=== PATIENT | male | born 1945 | race Caucasian/White ===

== ENCOUNTER → 2018-04-21 07:29 | Outpatient (CLI) | payer OTHER, SELFPAY ==
[2018-04-21 08:11] LABS: Alanine Aminotransferase 29 IU/L (21-72); Albumin 4.1 g/dL (3.5-5.0); Albumin Globulin Ratio 1.3 (1.0-2.8); Alkaline Phosphatase 131 U/L (38-126); Aspartate Aminotransferase 23 IU/L (17-59); BUN Creatinine Ratio 32.5 (6-22); Bilirubin Total 0.5 mg/dL (0.2-1.3); Blood Urea Nitrogen 26 mg/dL (9-20); Calcium 9.7 mg/dL (8.4-10.2); Carbon Dioxide 29 mmol/L (22-32); Chloride 102 mmol/L (98-107); Cholesterol 116 mg/dL (140-199); Estimated Glomerular Filt Rate > 60.0 mL/min (>60); Globulin 3.1 g/dL (1.7-4.1); Glucose 174 mg/dL (80-110); HDL Cholesterol 41 mg/dL (40-60); HEMOLYSIS < 15 (0-50); LDL Cholesterol Calculated 37 mg/dL (<100); Potassium 4.6 mmol/L (3.4-5.1); Sodium 142 mmol/L (137-145); Total Protein 7.2 g/dL (6.3-8.2); Triglycerides 189 mg/dL (35-150)
== END ==
PROVIDERS: Family Provider Family Medicine; PCP Family Medicine; Visit Provider Internal Medicine Cardiovascular Disease
DX: I10 Essential (primary) hypertension (principal); E78.2 Mixed hyperlipidemia
CPT/HCPCS: 36415; 80053; 80061

== ENCOUNTER 2018-06-15 16:22 | Emergency (ER) | payer OTHER, SELFPAY ==
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
[2018-06-15 16:43] LABS: Add Manual Diff / Slide Review NO; Basophils Percent Auto 0.4 % (0-2); Eosinophils Percent Auto 2.3 % (2-4); Hematocrit 38.3 % (41-53); Hemoglobin 13.4 g/dL (13.5-17.5); Lymphocytes Percent Auto 43.5 % (25-40); Mean Corpuscular HGB Conc 34.9 % (30-36); Mean Corpuscular Hemoglobin 29.1 PG (26-34); Mean Corpuscular Volume 83.5 fL (80-100); Monocytes Percent Auto 6.4 % (3-14); Neutrophils Absolute Auto 4500 /uL (3000-5900); Neutrophils Percent Auto 47.4 % (50-75); Platelet Count 198 X10^3/uL (150-400); Red Blood Cell Count 4.58 X10^6/uL (4.5-5.9); Red Cell Distribution Width 12.5 % (11.6-14.8); White Blood Cell Count 9.5 X10^3/uL (4.5-11.0)
[2018-06-15 16:44] VITALS: PULSE 65; RESP 14; O2SAT 90
[2018-06-15 16:52] LABS: Alanine Aminotransferase 27 IU/L (21-72); Albumin 3.9 g/dL (3.5-5.0); Albumin Globulin Ratio 1.4 (1.0-2.8); Alkaline Phosphatase 97 U/L (38-126); Aspartate Aminotransferase 27 IU/L (17-59); BUN Creatinine Ratio 27.8 (6-22); Bilirubin Total 0.4 mg/dL (0.2-1.3); Blood Urea Nitrogen 25 mg/dL (9-20); Calcium 9.3 mg/dL (8.4-10.2); Carbon Dioxide 28 mmol/L (22-32); Chloride 104 mmol/L (98-107); Estimated Glomerular Filt Rate > 60.0 mL/min (>60); Globulin 2.7 g/dL (1.7-4.1); Glucose 126 mg/dL (80-110); HEMOLYSIS < 15 (0-50); Potassium 4.3 mmol/L (3.4-5.1); Sodium 142 mmol/L (137-145); Total Protein 6.6 g/dL (6.3-8.2)
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
[2018-06-15 17:19] LABS: INR 1.1 (0.9-1.3); Prothrombin Time 12.2 SECONDS (10.1-12.7)
[2018-06-15 17:21] LABS: PTT Partial Thromboplastin Tim 29 SECONDS (26.4-36.2)
[2018-06-15 17:36] LABS: Troponin I < 0.012 ng/mL (0.01-0.034)
[2018-06-15 17:40] VITALS: BP 168/69; PULSE 57; RESP 15; O2SAT 100
[2018-06-15 19:29] VITALS: BP 135/81; PULSE 62; RESP 14; TEMP 36.4; O2SAT 100
== END 2018-06-15 19:30 | disposition short-term general hospital (02) ==
PROVIDERS: Emergency Provider Emergency Medicine; Family Provider Family Medicine; PCP Family Medicine
DX: S22.42XA Multiple fractures of ribs, left side, initial encounter for closed fracture (principal); S02.2XXA Fracture of nasal bones, initial encounter for closed fracture; S32.591A Other specified fracture of right pubis, initial encounter for closed fracture; S32.592A Other specified fracture of left pubis, initial encounter for closed fracture; V33 Occupant of three-wheeled motor vehicle injured in collision with car, pick-up truck or van
CPT/HCPCS: 70450; 70486; 71045; 71260; 72125; 72170; 74177; 80053; 82962; 84484; 85025; 85610; 85730; 86850; 86900; 86901; 93005; 93010; 96374; 96375; 96376; 99281; 99285; 99291; 99292; G0390; Q9967

== ENCOUNTER 2018-08-21 17:53 | Emergency (ER) | payer OTHER, SELFPAY ==
[2018-08-21 18:11] VITALS: BP 120/58; PULSE 100; RESP 20; TEMP 36.3; O2SAT 100
--- NOTE | 2018-08-21 18:37 | ED_ITS ---
HPI - Male Genitourinary General Chief complaint: Urogenital-Male Stated complaint: CATHETER PROBLEMS Time Seen by Provider: 08/21/18 18:36 Source: patient Mode of arrival: ambulatory Limitations: no limitations History of Present Illness HPI Narrative: 72-year-old male with a indwelling urinary catheter secondary to urinary retention here for concerns of a Iverson catheter problem. Patient states that he just had his catheter changed hand the home health nurse cut the tube that leads to the bag too short. He states that he would like to the have a longer 2. He also states that he is due to have his urine checked to see if he has a urinary tract infection. He denies any fevers. Denies any additional discomfort in his genital area. States that he is not leaking around the Iverson catheter. He states it is draining appropriately. Related Data Home Medications Medication Instructions Recorded Confirmed Syringes: 1cc Insulin Syringes 1 syr SQ QID 06/15/18 08/11/18 with [place] docusate sodium [Col-Rite] 1 cap PO DAILY 06/15/18 06/15/18 ergocalciferol (vitamin D2) 50,000 50,000 unit PO QWEEK 08/11/18 08/11/18 unit capsule Previous Rx's Medication Instructions Recorded furosemide 20 mg PO QDAY #30 tabs 09/18/17 aspirin 325 mg PO QDAY #30 tab 02/04/18 Glucose: Test Strips #1 ea 08/10/18 duloxetine 60 mg capsule,delayed 60 mg PO DAILY 30 Days #30 cap 08/11/18 release esomeprazole magnesium 40 mg 40 mg PO Q DAY #30 cap 08/11/18 capsule,delayed release gabapentin 600 mg tablet 600 mg PO TID 30 Days #90 tab 08/11/18 insulin aspart U-100 100 unit/mL 20 unit SUBCUT QID #2 vial 08/11/18 subcutaneous solution insulin glargine (U-100) 100 45 unit SUBCUT QDAY #2 vial 08/11/18 unit/mL subcutaneous solution levothyroxine 175 mcg tablet 175 mcg PO QAM #30 tab 08/11/18 losartan 25 mg tablet 25 mg PO QDAY #90 tab 08/11/18 methocarbamol 500 mg tablet 500 mg PO QID 30 Days #120 tab 08/11/18 metoprolol tartrate 100 mg tablet 100 mg PO BID #180 tab 08/11/18 rosuvastatin 20 mg tablet 20 mg PO BEDTIME 30 Days #30 tab 08/11/18 tamsulosin 0.4 mg capsule 0.4 mg PO BEDTIME #30 cap 08/11/18 Allergies Allergy/AdvReac Type Severity Reaction Status Date / Time adhesive tape [ADHESIVE TAPE] AdvReac Mild PATIENT Verified 08/11/18 09:05 STATES IT PEELS HIS SKIN OFF lisinopril [LISINOPRIL] AdvReac Mild COUGH Verified 08/11/18 09:05 prochlorperazine AdvReac Unknown Verified 08/11/18 09:05 [PROCHLORPERAZINE] shellfish derived AdvReac Unknown Verified 08/11/18 09:05 [SHELLFISH DERIVED] Review of Systems Constitutional Denies fever(s) Cardiovascular Denies chest pain and Denies dyspnea Respiratory Denies dyspnea Gastrointestinal Gastrointestinal: Denies abdominal pain Genitourinary Denies dysuria Comments: Iverson catheter to 2 short Integumentary/Breasts Denies lesions and Denies rash [facility] Medical History Hx of drug abuse (Acute) Myocardial infarct (Acute 10/17/06) Atrial fibrillation (Chronic Unknown) Carotid artery disease (Chronic Unknown) Coronary artery disease (Chronic Unknown) Diabetes (Chronic Unknown) Erectile dysfunction (Chronic Unknown) GERD (gastroesophageal reflux disease) (Chronic Unknown) Hyperlipemia (Chronic Unknown) Hypertension (Chronic Unknown) Hypothyroidism (Chronic Unknown) Obstructive sleep apnea (Chronic Unknown) Peripheral vascular disease (Chronic Unknown) Chickenpox (Resolved Unknown) Hepatitis C (Resolved Unknown) Measles (Resolved Unknown) Surgical History History of penile implant (Acute) History of open reduction and internal fixation (ORIF) procedure (Resolved 2009) Hx of cataract surgery (Resolved ~2004) Hx of coronary artery bypass surgery (Resolved 10/2006) S/P bilateral below knee amputation (Resolved Unknown) Family History Father Age: 82 Heart disease ETOH abuse Mother Age: 90 Heart disease Alzheimer's dementia without behavioral disturbance, Alzheimer's disease of unspecified onset Social History Smoking Status: Never smoker alcohol intake: never substance use type: does not use Exam Initial Vital Signs Initial Vital Signs: Vital Signs Temperature 97.4 F L 08/21/18 18:11 Pulse Rate 100 H 08/21/18 18:11 Respiratory Rate 20 08/21/18 18:11 Blood Pressure 120/58 L 08/21/18 18:11 Pulse Oximetry 100 08/21/18 18:11 Const General: cooperative, healthy appearing, comfortable, well developed and No acute distress Orientation: alert, awake and oriented x3 Resp Effort & Inspection: normal respiratory effort Skin Lesions: no lesions Rashes: no rashes Neuro General: alert, awake and oriented x3 Extrem Other: Bilateral [id number] amputations Psych Appearance: grossly normal and well kempt Course Orders Ordered: ED Orders 08/21/18 18:25 Urinalysis and Microscopic Stat Vital Signs - 8 hr 08/21/18 18:11 08/21/18 20:00 Temperature 97.4 F L Pulse Rate 100 H 71 Respiratory Rate 20 16 Blood Pressure 120/58 L 118/71 Pulse Oximetry 100 97 [facility] - Male Genitourinary Lab Data Attestation: I reviewed the patient's lab results. Lab Results 08/21/18 Range/Units 18:25 Urine Color Yellow Urine Appearance Cloudy Urine pH 5.0 (4.5-8.0) Ur Specific [place] 1.015 (1.000-1.035) Urine Protein 1+ H (Negative) Urine Glucose (UA) Negative (Normal) g/dL Urine Ketones Negative (NEGATIVE) Urine Occult Blood 3+ H (Negative) Urine Nitrate Negative (Negative) Urine Bilirubin Negative (NEGATIVE) Urine Urobilinogen 0.2 (0.2) E.U./dL Ur Leukocyte Esterase 2+ H (NEGATIVE) Urine RBC 5-10/hpf H (0-5/HPF) Urine WBC >100/hpf H (0-5/HPF) Urine Bacteria Many (>30) H (None) Ur Culture Indicated? Not Reportable Micro UA Comment Cx already ordered MDM Narrative Medical decision making narrative: We did replace the tube bleeding from the Iverson catheter to the leg bag. Patient's urine was also sent to the lab today. Does have bacteria in it however he has no urinary symptoms and no fevers. I do suspect that he has colonized since he has had the catheter in for an extended period of time. We did discuss this. Will hold on antibiotics for now. A culture was obtained. He was informed that we would call him if his culture was positive for an infection. He expressed understanding and agreement with plan. Discharge Plan Departure Patient Disposition: Home Clinical Impression: Iverson catheter problem Discharge Date/Time: 08/21/18 20:01 Interventions: ED Discharge Assessment Last Done: 08/21/18 20:00 Instructions: How to Care for Your Iverson Catheter -- Male Activity Restrictions/Additional Instructions: A culture of your urine was started today. Does take a couple days for this to come back. This is the definitive test as to whether not there is an infection. We will call you if there is a need for antibiotics. We will not call for a negative result. Recommend you contact your primary care doctor for a follow-up. Return to the emergency department for any new or worsening symptoms Prescriptions: No Action ergocalciferol (vitamin D2) 50,000 unit capsule 50,000 unit PO QWEEK RF: 0 gabapentin 600 mg tablet 600 mg PO TID 30 Days Qty: 90 RF: 2 methocarbamol 500 mg tablet 500 mg PO QID 30 Days Qty: 120 RF: 2 duloxetine 60 mg capsule,delayed release(DR/EC) 60 mg PO DAILY 30 Days Qty: 30 RF: 5 esomeprazole magnesium [Nexium] 40 mg capsule,delayed release(DR/EC) 40 mg PO Q DAY Qty: 30 RF: 2 levothyroxine 175 mcg tablet 175 mcg PO QAM Qty: 30 RF: 11 losartan 25 mg tablet 25 mg PO QDAY Qty: 90 RF: 1 metoprolol tartrate 100 mg tablet 100 mg PO BID Qty: 180 RF: 5 rosuvastatin 20 mg tablet 20 mg PO BEDTIME 30 Days Qty: 30 RF: 5 tamsulosin 0.4 mg capsule 0.4 mg PO BEDTIME Qty: 30 RF: 5 insulin aspart U-100 [Novolog U-100 Insulin aspart] 100 unit/mL solution 20 unit SUBCUT QID Qty: 2 RF: 12 insulin glargine [Lantus U-100 Insulin] 100 unit/mL solution 45 unit SUBCUT QDAY Qty: 2 RF: 12 furosemide 20 MG tablet 20 mg PO QDAY Qty: 30 RF: 11 aspirin 325 MG tablet,delayed release (DR/EC) 325 mg PO QDAY Qty: 30 RF: 0 Glucose: Test Strips See Label Instructions .Route .MEDSUPPLY Qty: 1 RF: 6 docusate sodium [Col-Rite] 250 mg capsule 1 cap PO DAILY RF: 0 Syringes: 1cc Insulin Syringes with [place] 1 syr SQ QID RF: 0
[2018-08-21 19:06] LABS: Appearance Urine UA CLOUDY; Bilirubin Urine UA NEGATIVE (NEGATIVE); Color Urine UA YELLOW; Glucose Urine UA NEGATIVE (Normal); Ketones Urine UA NEGATIVE (NEGATIVE); Leukocyte Esterase Urine UA 2+ (NEGATIVE); Nitrite Urine UA Negative (Negative); Occult Blood Urine UA 3+ (Negative); Protein Urine UA 1+ (Negative); Specific Gravity Urine UA 1.015 (1.000-1.035); Urobilinogen Urine UA 0.2 E.U./dL (0.2)
[2018-08-21 19:31] LABS: Bacteria Urine Many (>30); RBC Urine 5-10/HPF (0-5/HPF); WBC Urine >100/HPF (0-5/HPF)
[2018-08-21 19:40] LABS: Urine Comments CX ALREADY ORDERED
[2018-08-21 20:00] VITALS: BP 118/71; PULSE 71; RESP 16; O2SAT 97
--- NOTE | 2018-08-26 14:34 | PC.NURSE ---
manny called back today. script called in to [facility] DS tab po bid by dr greene.
--- NOTE | 2018-09-02 16:17 | PC.NURSE ---
Pt called back stating he had a letter stating ED was trying to get in touch with him regarding lab results. Pt states he was called in abx therapy which he took. Feels well. No s/s of infection at this time. Encouraged to f/u as needed and indicated and return for any difficulty or concerns.
== END 2018-08-21 20:01 | disposition home or self-care (01) ==
PROVIDERS: Emergency Provider Emergency Medicine; PCP Student in an Organized Health Care Education/Training Program
DX: T83.9XXA Unspecified complication of genitourinary prosthetic device, implant and graft, initial encounter (principal)
CPT/HCPCS: 81001; 87077; 87086; 87186; 99283

== ENCOUNTER → 2018-09-16 12:51 | Outpatient (CLI) | payer OTHER, SELFPAY ==
--- NOTE | 2018-09-16 12:54 | DI.MRI.S_ITS ---
PROCEDURE: MR LUMBAR SPINE WO CON INDICATIONS: RADICULOPATHY LUMBAR REGION TECHNIQUE: Noncontrast sagittal T1 spin echo and T2 fast echo, sagittal STIR, axial T1 and T2 fast spin echo through the lumbar spine. In cases with scoliosis, additional coronal T2 fast spin echo may be performed. COMPARISON: [facility], RG, PELVIS 1 OR 2VW, 06/19/2018, 12:05. [facility], CT, CT CHEST ABD PEL W CON, 06/15/2018, 16:30. [facility] [place], CR, XR LUMBAR SPINE 2 OR 3 VIEWS, 09/09/2018, 10:06. FINDINGS: Image quality: Excellent. Alignment and Curvature: 5 lumbar type vertebral bodies are present by plain film. There is mild grade 1 retrolisthesis of L1 on L2. Moderate leftward curvature of the lower lumbar spine. Bone Marrow: There is new moderate ill-defined STIR signal elevation within the left posterior iliac wing and left lateral sacrum. There is associated low T2 signal intensity protruding anteriorly and the left presacral soft tissues from the left sacroiliac joint measuring 38 mm transverse by 18 mm anteroposterior. There is a small amount of fluid within the left sacroiliac joint. No acute vertebral body compression fractures. Spinal Cord: Conus medullaris terminates at the mid L1 level. Visualized cord demonstrates normal signal and size. Paraspinous Soft Tissues: No paravertebral masses. L1-L2: Mild disc height loss and desiccation. Mild diffuse disc bulge with superimposed small broad-based right posterolateral protrusion. Mild facet and ligament flavum hypertrophy. Mild canal stenosis. Mild right greater than left foraminal stenosis. L2-L3: Mild disc height loss and desiccation. Mild diffuse disc bulge. Mild bilateral facet and ligamentum flavum hypertrophy. Moderate canal stenosis. Mild bilateral foraminal stenosis. L3-L4: Moderate disc height loss and desiccation. Mild diffuse disc bulge. Moderate facet and ligamentum flavum hypertrophy. Severe canal stenosis. Mild foraminal stenosis bilaterally. L4-L5: Mild disc height loss and desiccation. Mild diffuse disc bulge. Mild bilateral facet and ligamentum hypertrophy. Moderate canal stenosis. Mild bilateral foraminal stenosis. L5-S1: Moderate disc height loss and desiccation. Mild diffuse disc bulge with superimposed small broad-based right posterolateral protrusion. Mild bilateral facet hypertrophy. Epidural lipomatosis. Moderate canal stenosis. Moderate to severe bilateral foraminal stenosis with mild flattening deformity of the bilateral L5 nerve roots within the neural foramina. IMPRESSION: 1. Multilevel degenerative disc and facet disease, as well as ligamentum flavum hypertrophy and epidural lipomatosis. 2. Multilevel canal stenoses, worst at L3-L4, where there is severe canal stenosis. Moderate canal stenoses at L2-L3, L4-L5, and L5-S1 are present. 3. Multilevel foraminal stenoses, worst at L5-S1 bilaterally, where there is bilateral intraforaminal L5 nerve root flattening. Recommend correlation with clinical symptoms to ascertain relevance of this finding. 4. Abnormal marrow signal adjacent to the left sacroiliac joint associated with associated left sacroiliac joint effusion. Differential considerations include osteomyelitis with septic arthritis, post fracture deformity, and metastatic disease. MRI of the pelvis with and without intravenous contrast may be helpful for further assessment. Findings were discussed with Dr. Santos's medical staff credentialing coordinator Ashley on 09.16.18 at 1625 hrs. She understood the urgent nature of the findings and agreed to communicate them to Dr. Santos as soon as possible. Dictated by: Andrea Rush M.D. on 09/16/2018 at 16:17 Approved by: Andrea Rush M.D. on 09/16/2018 at 16:25
== END ==
PROVIDERS: PCP Student in an Organized Health Care Education/Training Program; Visit Provider Orthopaedic Surgery
DX: M51.16 Intervertebral disc disorders with radiculopathy, lumbar region (principal); M51.17 Intervertebral disc disorders with radiculopathy, lumbosacral region; M48.061 Spinal stenosis, lumbar region without neurogenic claudication; M48.07 Spinal stenosis, lumbosacral region; E88.2 Lipomatosis, not elsewhere classified; M25.48 Effusion, other site
CPT/HCPCS: 72148

== ENCOUNTER 2018-09-16 15:11 | Emergency (ER) | payer OTHER, SELFPAY ==
[2018-09-16 15:12] VITALS: BP 147/82; PULSE 62; RESP 20; TEMP 37.1; O2SAT 97
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
[2018-09-16 16:52] LABS: Appearance Urine UA SL CLOUDY; Bilirubin Urine UA NEGATIVE (NEGATIVE); Color Urine UA YELLOW; Glucose Urine UA NEGATIVE (Normal); Ketones Urine UA NEGATIVE (NEGATIVE); Leukocyte Esterase Urine UA 1+ (NEGATIVE); Nitrite Urine UA NEGATIVE (Negative); Occult Blood Urine UA 3+ (Negative); Protein Urine UA 2+ (Negative); Urobilinogen Urine UA 0.2 E.U./dL (0.2)
[2018-09-16 17:01] LABS: Amorphous Sediment Urine 1+; Bacteria Urine Moderate (10-30); Culture Indicated Urine Specimen Cultured; Mucus Urine 2+ (Negative); RBC Urine 10-30/HPF (0-5/HPF); Squamous Epithelial Cell Urine 0-1 /HPF; WBC Urine 10-30/HPF (0-5/HPF)
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
== END 2018-09-16 18:21 | disposition home or self-care (01) ==
PROVIDERS: Emergency Provider Nurse Practitioner Family; Family Provider Student in an Organized Health Care Education/Training Program; PCP Student in an Organized Health Care Education/Training Program
DX: M51.16 Intervertebral disc disorders with radiculopathy, lumbar region (principal); M51.17 Intervertebral disc disorders with radiculopathy, lumbosacral region; M48.061 Spinal stenosis, lumbar region without neurogenic claudication; M48.07 Spinal stenosis, lumbosacral region; E88.2 Lipomatosis, not elsewhere classified; M25.48 Effusion, other site; R33.9 Retention of urine, unspecified; T83.9XXA Unspecified complication of genitourinary prosthetic device, implant and graft, initial encounter
CPT/HCPCS: 51798; 72148; 81001; 87077; 87086; 87186; 99283; 99284

== ENCOUNTER → 2018-09-22 09:24 | Outpatient (CLI) | payer OTHER, SELFPAY ==
[2018-09-22 10:15] LABS: Hematocrit 40.4 % (41-53); Hemoglobin 13.6 g/dL (13.5-17.5); Mean Corpuscular HGB Conc 33.8 % (30-36); Mean Corpuscular Hemoglobin 28.2 PG (26-34); Mean Corpuscular Volume 83.6 fL (80-100); Platelet Count 232 X10^3/uL (150-400); Red Blood Cell Count 4.83 X10^6/uL (4.5-5.9); Red Cell Distribution Width 13.2 % (11.6-14.8); White Blood Cell Count 7.8 X10^3/uL (4.5-11.0)
[2018-09-22 10:21] LABS: Creatinine Urine Random 56.3 mg/dL; Hemoglobin A1C% w Est Avg Glu 7.4 % (4.0-6.0)
[2018-09-22 10:25] LABS: Microalbumi Creatinin Ratio Ur 282.4 ug/mg CR (<30); Microalbumin Urine Random 15.9 mg/dL (0-1.6)
[2018-09-22 10:50] LABS: Alanine Aminotransferase 29 IU/L (21-72); Albumin 4.1 g/dL (3.5-5.0); Albumin Globulin Ratio 1.4 (1.0-2.8); Alkaline Phosphatase 171 U/L (38-126); Aspartate Aminotransferase 25 IU/L (17-59); BUN Creatinine Ratio 22.9 (6-22); Bilirubin Total 0.4 mg/dL (0.2-1.3); Blood Urea Nitrogen 16 mg/dL (9-20); Calcium 9.4 mg/dL (8.4-10.2); Carbon Dioxide 30 mmol/L (22-32); Chloride 100 mmol/L (98-107); Estimated Glomerular Filt Rate > 60.0 mL/min (>60); Globulin 2.9 g/dL (1.7-4.1); Glucose 254 mg/dL (80-110); HEMOLYSIS < 15 (0-50); Potassium 4.7 mmol/L (3.4-5.1); Sodium 142 mmol/L (137-145)
[2018-09-22 10:52] LABS: HEMOLYSIS < 15 (0-50); Iron 68 ug/dL (49-181)
[2018-09-22 11:04] LABS: Percent Iron Saturation 23 % (20-50); Total Iron Binding Capacity 299 ug/dL (261-462); Transferrin 226 mg/dL (206-381)
[2018-09-22 11:08] LABS: Vitamin D 25 Hydroxy (D3) 28.2 ng/mL (30.0-100.0)
== END ==
PROVIDERS: Family Provider Student in an Organized Health Care Education/Training Program; PCP Student in an Organized Health Care Education/Training Program; Visit Provider Orthopaedic Surgery
DX: R52 Pain, unspecified (principal); D64.9 Anemia, unspecified; E55.9 Vitamin D deficiency, unspecified; E10.65 Type 1 diabetes mellitus with hyperglycemia
CPT/HCPCS: 36415; 80053; 82043; 82306; 82570; 83036; 83540; 83550; 85027

== ENCOUNTER → 2018-09-24 12:36 | Outpatient (CLI) | payer OTHER, SELFPAY ==
--- NOTE | 2018-09-24 | DI.MRI.S_ITS ---
PROCEDURE: MR PELIS WO/W CON INDICATIONS: PERSONAL HISTORY OF HEALED TRAUMATIC FRACTURE OF PELVIS TECHNIQUE: Noncontrast coronal T1 spin echo and STIR, sagittal T1 spin echo with fat saturation and STIR, axial T1 spin echo and T2 fast spin echo with fat saturation. After the administration of contrast, axial/sagittal/coronal T1 spin echo with fat saturation through the bony pelvis. COMPARISON: [facility], CT, CT CHEST ABD PEL W CON, 06/15/2018, 16:30. [facility], RG, PELVIS 1 OR 2VW, 06/19/2018, 12:05. FINDINGS: Image quality: There is inhomogeneous fat saturation limiting evaluation. Magnetic susceptibly artifact is also demonstrated around the right hip associated with patient's surgical hardware. Bones: The visualized bone marrow demonstrates normal overall signal. There is dysmorphic appearance of the pelvis anteriorly consistent with sequelae of previous bilateral superior and inferior comminuted pubic rami fractures. There is healing along the right fracture margins with persistent edema and enhancement. The left pubic rami fractures demonstrate persistent displacement with an associated peripherally enhancing fluid collection measuring approximately 5.2 x 3.4 x 3.2 cm along the fracture fragments. There are healing fractures of the left sacral ala and left ilium along the sacroiliac joint. There is mild diastases of the left sacroiliac joint with a small joint effusion. Soft tissues: There is muscle edema within the left adductor compartment consistent with muscle strains or myositis. Soft tissue edema and enhancement is demonstrated along the fracture margins of the left pubic fractures. There is also edema along the left sacral and iliac fractures within the adjacent musculature with associated mild enhancement. The visualized pelvic structures demonstrate no intracranial free fluid. There is a Iverson catheter within a partially distended urinary bladder. IMPRESSION: 1. Comminuted fractures of the left superior and inferior pubic rami with persistent displacement of the fracture fragments associated with a peripherally enhancing fluid collection. This may represent a residual hematoma or seroma versus abscess. Recommend correlation clinically. 2. Healing fractures of the left sacral ala and ilium along the sacroiliac joint which demonstrates mild diastases with a small joint effusion. Associated soft tissue edema and enhancement along the fracture margins may represent reactive changes but infection cannot be excluded. 3. Healing fractures of the right inferior and superior pubic rami. Dictated by: Edd Catalan M.D. on 09/24/2018 at 16:17 Approved by: Edd Catalan M.D. on 09/24/2018 at 16:30
== END ==
PROVIDERS: Family Provider Student in an Organized Health Care Education/Training Program; PCP Student in an Organized Health Care Education/Training Program; Visit Provider Orthopaedic Surgery
DX: S32.1 Fracture of sacrum (principal); M25.48 Effusion, other site
CPT/HCPCS: 72197; A9579

== ENCOUNTER → 2019-01-07 06:58 | Outpatient (CLI) | payer OTHER, SELFPAY ==
[2019-01-07 07:55] LABS: Alanine Aminotransferase 25 IU/L (21-72); Albumin Globulin Ratio 1.3 (1.0-2.8); Alkaline Phosphatase 191 U/L (38-126); Aspartate Aminotransferase 20 IU/L (17-59); BUN Creatinine Ratio 31.1 (6-22); Bilirubin Total 0.6 mg/dL (0.2-1.3); Bilirubin Unconjugated 0.3 mg/dL (0.0-1.1); Blood Urea Nitrogen 28 mg/dL (9-20); Calcium 9.3 mg/dL (8.4-10.2); Carbon Dioxide 31 mmol/L (22-32); Chloride 98 mmol/L (98-107); Estimated Glomerular Filt Rate > 60.0 mL/min (>60); Glucose 272 mg/dL (80-110); HEMOLYSIS < 15 (0-50); Potassium 4.6 mmol/L (3.4-5.1); Sodium 137 mmol/L (137-145)
[2019-01-07 08:06] LABS: Creatinine Urine Random 75.9 mg/dL
[2019-01-07 08:12] LABS: Hemoglobin A1C% w Est Avg Glu 8.7 % (4.0-6.0); Microalbumi Creatinin Ratio Ur 76.4 ug/mg CR (<30); Microalbumin Urine Random 5.8 mg/dL (0-1.6)
== END ==
PROVIDERS: PCP Student in an Organized Health Care Education/Training Program; Visit Provider Student in an Organized Health Care Education/Training Program
DX: E11.65 Type 2 diabetes mellitus with hyperglycemia (principal); Z79.899 Other long term (current) drug therapy; I10 Essential (primary) hypertension
CPT/HCPCS: 36415; 80048; 80076; 82043; 82570; 83036

== ENCOUNTER 2019-02-04 18:45 | Emergency (ER) | payer OTHER, SELFPAY ==
[2019-02-04 18:52] VITALS: BP 153/96; PULSE 91; RESP 20; TEMP 36.2; O2SAT 96; BMI 31.1
[2019-02-04 19:24] LABS: Add Manual Diff / Slide Review NO; Basophils Absolute Auto 100 /uL (0-100); Basophils Percent Auto 0.8 % (0-2); Eosinophils Absolute Auto 200 /uL (0-450); Eosinophils Percent Auto 3.2 % (2-4); Hematocrit 40.2 % (41-53); Hemoglobin 13.1 g/dL (13.5-17.5); Lymphocytes Absolute Auto 3800 /uL (1100-4500); Lymphocytes Percent Auto 48.9 % (25-40); Mean Corpuscular HGB Conc 32.5 % (30-36); Mean Corpuscular Hemoglobin 27.9 PG (26-34); Mean Corpuscular Volume 85.9 fL (80-100); Monocytes Absolute Auto 600 /uL (0-900); Monocytes Percent Auto 8.4 % (3-14); Neutrophils Absolute Auto 3000 /uL (1500-7000); Neutrophils Percent Auto 38.7 % (50-75); Platelet Count 202 X10^3/uL (150-400); Red Blood Cell Count 4.68 X10^6/uL (4.5-5.9); Red Cell Distribution Width 13.8 % (11.6-14.8); White Blood Cell Count 7.7 X10^3/uL (4.5-11.0)
[2019-02-04] MEDS: SODIUM CHLORIDE 0.9% 1,000 ML 1000 ML IV (19:28)
[2019-02-04 19:39] LABS: Alanine Aminotransferase 26 IU/L (21-72); Albumin 4.1 g/dL (3.5-5.0); Albumin Globulin Ratio 1.2 (1.0-2.8); Alkaline Phosphatase 123 U/L (38-126); Aspartate Aminotransferase 27 IU/L (17-59); Bilirubin Total 0.6 mg/dL (0.2-1.3); Blood Urea Nitrogen 33 mg/dL (9-20); Carbon Dioxide 27 mmol/L (22-32); Chloride 99 mmol/L (98-107); Estimated Glomerular Filt Rate > 60.0 mL/min (>60); Globulin 3.3 g/dL (1.7-4.1); Glucose 64 mg/dL (80-110); HEMOLYSIS 15 (0-50); Potassium 3.7 mmol/L (3.4-5.1); Sodium 136 mmol/L (137-145); Total Protein 7.4 g/dL (6.3-8.2)
--- NOTE | 2019-02-04 19:45 | ED.GENADULT ---
HPI - General Adult General Chief complaint: Diabetic Problem Stated complaint: Fell backwards in Garage Time Seen by Provider: 02/04/19 18:59 Source: patient and family Mode of arrival: ambulatory Limitations: no limitations History of Present Illness HPI narrative: Patient is brought to the emergency department after a fall at around 6:00 p.m., after patient's blood sugar dropped to 36. Patient's states that this is not necessarily abnormal for the patient, as he often does not eat enough at work. However, her main concern was that the patient fell backward and struck his head on the concrete. called EMS, who gave the patient oral glucose, after which he did notice improvement. Patient was also given a sandwich by staff immediately upon arrival here. Patient states he has a ?sore spot? on the back of his head, but otherwise, does not have any headache. No neck pain. No back pain. No rib pain. No shortness of breath or chest pain now or during the event. No abdominal pain. No vomiting since hitting his head. No neurologic deficits. Patient complains of some drowsiness now but both patient and state this is normal for the patient in the evening. Related Data Home Medications Medication Instructions Recorded Confirmed ergocalciferol (vitamin D2) 50,000 50,000 unit PO QWEEK 08/11/18 01/07/19 unit capsule aspirin 2 tab PO DAILY 09/16/18 01/07/19 docusate sodium [Col-Rite] 09/16/18 01/07/19 Previous Rx's Medication Instructions Recorded furosemide 20 mg PO QDAY #30 tabs 09/18/17 duloxetine 60 mg capsule,delayed 60 mg PO DAILY 30 Days #30 cap 08/11/18 release levothyroxine 175 mcg tablet 175 mcg PO QAM #30 tab 08/11/18 losartan 25 mg tablet 25 mg PO QDAY #90 tab 08/11/18 metoprolol tartrate 100 mg tablet 100 mg PO BID #180 tab 08/11/18 rosuvastatin 20 mg tablet 20 mg PO BEDTIME 30 Days #30 tab 08/11/18 tamsulosin 0.4 mg capsule 0.4 mg PO BEDTIME #30 cap 08/11/18 nystatin 100,000 unit/gram topical 1 applictn TOP BID #30 gram 09/01/18 cream insulin aspart U- 100 100 unit/mL 20 unit SUBCUT QAC #2 vial 09/23/18 subcutaneous solution insulin glargine (U- 100) 100 60 unit SUBCUT QDAY #2 vial 09/23/18 unit/mL subcutaneous solution esomeprazole magnesium 40 mg 40 mg PO Q DAY #90 cap 11/12/18 capsule,delayed release Syringes: 1cc Insulin Syringes #100 each 11/19/18 with Franklin Glucose: Test Strips #100 each 11/30/18 gabapentin 600 mg tablet 600 mg PO TID #90 tab 12/02/18 methocarbamol 500 mg tablet 500 mg PO QID #120 tab 12/10/18 Allergies Allergy/AdvReac Type Severity Reaction Status Date / Time adhesive tape [ADHESIVE TAPE] AdvReac Mild PATIENT Verified 01/07/19 15:16 STATES IT PEELS HIS SKIN OFF lisinopril [LISINOPRIL] AdvReac Mild COUGH Verified 01/07/19 15:16 prochlorperazine AdvReac Unknown Verified 01/07/19 15:16 [PROCHLORPERAZINE] shellfish derived AdvReac Unknown Verified 01/07/19 15:16 [SHELLFISH DERIVED] Review of Systems Constitutional Denies chills, Denies fever(s), Denies lethargy and Denies weakness Comments: Weakness, decreased blood sugar. Eyes Denies change in vision, Denies eye discharge, Denies irritation and Denies loss of vision ENT Ears, Nose, Mouth, and Throat: Denies change in voice, Denies neck pain and Denies sore throat Cardiovascular Denies chest pain, Denies irregular heart rhythm, Denies lightheadedness, Denies palpitations, Denies dyspnea, Denies dyspnea on exertion and Denies orthopnea Respiratory Denies cough, Denies dyspnea, Denies dyspnea on exertion and Denies wheezing Gastrointestinal Gastrointestinal: Denies abdominal pain, Denies change in bowel habits, Denies diarrhea, Denies nausea and Denies vomiting Genitourinary Denies hematuria, Denies flank pain, Denies urinary incontinence and Denies urinary urgency Musculoskeletal Denies neck pain Integumentary/Breasts Denies pruritus, Denies erythema, Denies rash and Denies wounds Neurologic Denies confusion, Denies loss of vision and Denies weakness Psychiatric Denies anxiety, Denies confusion, Denies depression, Denies homicidal ideation and Denies suicidal ideation Endocrine Denies palpitations Hematologic/Lymphatic Denies easy bruising Allergic/Immunologic Denies wheezing [facility] Medical History Hx of drug abuse (Acute) Myocardial infarct (Acute 10/17/06) Atrial fibrillation (Chronic Unknown) Carotid artery disease (Chronic Unknown) Coronary artery disease (Chronic Unknown) Diabetes (Chronic Unknown) Erectile dysfunction (Chronic Unknown) GERD (gastroesophageal reflux disease) (Chronic Unknown) Hyperlipemia (Chronic Unknown) Hypertension (Chronic Unknown) Hypothyroidism (Chronic Unknown) Obstructive sleep apnea (Chronic Unknown) Peripheral vascular disease (Chronic Unknown) Chickenpox (Resolved Unknown) Hepatitis C (Resolved Unknown) Measles (Resolved Unknown) Surgical History History of penile implant (Acute) History of open reduction and internal fixation (ORIF) procedure (Resolved 09/2010) Hx of cataract surgery (Resolved ~2004) Hx of coronary artery bypass surgery (Resolved 10/2006) S/P bilateral below knee amputation (Resolved Unknown) Family History Father Age: 83 Heart disease ETOH abuse Mother Age: 91 Heart disease Alzheimer's dementia without behavioral disturbance, Alzheimer's disease of unspecified onset Social History Smoking Status: Never smoker alcohol intake: never substance use type: does not use Family History Father Age: 83 Heart disease ETOH abuse Mother Age: 91 Heart disease Alzheimer's dementia without behavioral disturbance, Alzheimer's disease of unspecified onset Social History Smoking Status: Never smoker alcohol intake: never substance use type: does not use Exam Initial Vital Signs Initial Vital Signs: Vital Signs Temperature 97.2 F L 02/04/19 18:52 Pulse Rate 91 H 02/04/19 18:52 Respiratory Rate 20 02/04/19 18:52 Blood Pressure 153/96 H 02/04/19 18:52 Pulse Oximetry 96 02/04/19 18:52 Const General: cooperative and well developed Nutritional Appearance: well nourished Orientation: alert, awake, oriented x3 and not confused HENMT Head: normocephalic and atraumatic Ears: external ears normal Nose: external nose normal and No nasal discharge Face and sinus: face symmetric and No dry mucous membranes Mouth: oral mucosae normal and moist mucous membranes Teeth and gingiva: dentition normal Eyes General: appearance normal, both eyes and all related structures Eyelids: eyelids normal Conjunctivae: conjunctivae normal Sclera: sclerae normal Pupils: PERRL EOM: EOM intact bilaterally Neck Neck: normal visual inspection, trachea midline, No lymphadenopathy, No midline deformity and No JVD Lymphatic: No lymphedema Chest Chest: normal inspection of the chest Resp Effort & Inspection: normal respiratory effort, able to speak in complete sentences, no respiratory distress and no use of accessory muscles Auscultation: clear to auscultation bilaterally, no rales, no rhonchi and no wheezes Cardio Rate: regular rate Rhythm: regular rhythm Heart Sounds: no click, no gallops, no murmurs and no rubs Pulses: normal peripheral pulses GI Inspection: non-distended Palpation: soft, no hepatosplenomegaly, No guarding, No pulsatile mass and No tender Auscultation: normal bowel sounds Back/Spine/Pelvis Back: No CVA tenderness Cervical Spine: cervical ROM normal and No pain with cervical ROM Thoracic/Lumbar Spine: thoracic and lumbar spine normal to inspection Skin General: no rashes or lesions noted, No jaundice and No petechiae Neuro General: alert, oriented x3, gait normal and no focal motor deficits Speech: speech normal Extrem General: full ROM Other: Patient has bilateral [id number] amputations, with prostheses in place. Psych Appearance: well kempt Mental Status: mental status grossly normal Attitude: cooperative Thought Content: normal and suicidality Judgment: judgment good Course Course Narrative: Patient was overall at baseline, and had a fingerstick glucose 92 in the emergency department. He had been given oral glucose by EMS, and a sandwich upon arrival here. He was worked up with labs, and CT of the brain and C-spine. Labs showed a blood glucose in the 60s, so patient was given further oral intake. Patient was observed for a couple more hours in the emergency department, after which his blood sugar was found to have stabilized in the normal range. His workup was negative. Patient's spouse, as well as patient, stated that the symptoms other than the head injury were something the patient experienced regularly, and they were not concerned about the drop in blood sugar or the drowsiness. Patient did not have any symptoms consistent with sequela of concussion, as his drowsiness was at baseline for the time of day. I felt the patient was stable for discharge home. We have discussed home management of the symptoms, as well as prevention of hypoglycemia, and the usual indications for return. Orders Ordered: Discontinued Medications Sodium Chloride (Normal Saline 0.9%) 1,000 mls @ 1,000 mls/hr IV BOLUS ONE Stop: 02/04/19 20:13 Last Infusion: 02/04/19 20:30 Dose: 0 mls/hr Admin: 02/04/19 19:28 Dose: 1,000 mls/hr Vital Signs - 8 hr 02/04/19 18:52 Temperature 97.2 F L Pulse Rate 91 H Respiratory Rate 20 Blood Pressure 153/96 H Pulse Oximetry 96 Medical Decision Making Medical Records Medical records reviewed: Yes I reviewed the patient's medical records. Lab Data Lab results reviewed: Yes I reviewed the patient's lab results. Result diagrams: 02/04/19 19:10 02/04/19 19:10 Lab Results 02/04/19 02/04/19 Range/Units 19:10 19:10 WBC 7.7 (4.5-11.0) X10^3/uL RBC 4.68 (4.5-5.9) X10^6/uL Hgb 13.1 L (13.5-17.5) g/dL Hct 40.2 L (41-53) % MCV 85.9 (80-100) fL MCH 27.9 (26-34) PG MCHC 32.5 (30-36) % RDW 13.8 (11.6-14.8) % Plt Count 202 (150-400) X10^3/uL Neut % (Auto) 38.7 L (50-75) % Lymph % (Auto) 48.9 H (25-40) % [place] % (Auto) 8.4 (3-14) % Eos % (Auto) 3.2 (2-4) % Baso % (Auto) 0.8 (0-2) % Neut # (Auto) 3000 (0085-0581) /uL Lymph # (Auto) 3800 (2292-6767) /uL [place] # (Auto) 600 (0-900) /uL Eos # (Auto) 200 (0-450) /uL Baso # (Auto) 100 (0-100) /uL Sodium 136 L (137-145) mmol/L Potassium 3.7 (3.4-5.1) mmol/L Chloride 99 (98-107) mmol/L Carbon Dioxide 27 (22-32) mmol/L BUN 33 H (9-20) mg/dL Creatinine 1.00 (0.66-1.25) mg/dL Estimated GFR > 60.0 (>60) mL/min BUN/Creatinine Ratio 33.0 H (6-22) Glucose 64 L (80-110) mg/dL Calcium 9.0 (8.4-10.2) mg/dL Total Bilirubin 0.6 (0.2-1.3) mg/dL AST 27 (17-59) IU/L ALT 26 (21-72) IU/L Alkaline Phosphatase 123 (38-126) U/L Total Protein 7.4 (6.3-8.2) g/dL Albumin 4.1 (3.5-5.0) g/dL Globulin 3.3 (1.7-4.1) g/dL Albumin/Globulin Ratio 1.2 (1.0-2.8) Point of Care Testing Glucose POC 152 Point of care testing: Point of Care Testing Glucose POC [address] scan - head: Attestation: I personally reviewed and interpreted this imaging study as follows: My impression: Unremarkable Radiologist's impression: [address] [address] [address] Scan Report Signed Patient: Tulio Yi LMR#: [id number] : 6Acct:[id number] Age/Sex: 73 / MDate of Service: 02/04/19 Loc: ED Accession Number: [id number] Procedure: CT head/brain wo con Ordering Provider: Keyona Alvarez MD PROCEDURE: CT HEAD/BRAIN WO CON INDICATIONS: injury TECHNIQUE: Noncontrast 4.5 mm thick angled axial sections acquired from the foramen magnum to the vertex, with coronal and sagittal reformats. For radiation dose reduction, the following was used: automated exposure control, adjustment of mA and/or kV according to patient size. COMPARISON: [facility], CT, CT HEAD/BRAIN WO CON, 06/15/2018, 16:30. [facility], CT, HEAD WITHOUT CONTRAST, 01/01/2015, 1:10. FINDINGS: Image quality: Excellent. CSF spaces: Basal cisterns are patent. No extra-axial fluid collections. The ventricles are symmetric in size and shape. Brain: No intracranial bleeds or masses. There is cerebral volume loss for age, with resultant ventricular and sulcal prominence. There are periventricular and deep white matter chronic small vessel ischemic changes. There is intracranial internal carotid artery atherosclerosis. Skull and face: Calvarium and visualized facial bones appear intact, without suspicious lesions. There is mild, focal superficial soft tissue contusion and mild skin thickening of the midline posterior vertex scalp. Chronic appearing nasal bone fractures, unchanged. Sinuses: Visualized sinuses and mastoids are clear. IMPRESSION: CT head without acute intracranial abnormalities. Superficial soft tissue contusion of the midline posterior vertex without underlying calvarial fractures. Dictated by: Paulino Murphy M.D. on 02/04/2019 at 20:42 Approved by: Paulino Murphy M.D. on 02/04/2019 at 20:46 CT cervical spine: Attestation: I personally reviewed and interpreted this imaging study as follows: My impression: unremarkable Radiologist's impression: PROCEDURE: CT CERVICAL SPINE WO CON INDICATIONS: glf, hit head on concrete TECHNIQUE: Noncontrast 3 mm thick sections acquired from the skull base to the T4 level. Sagittal and coronal reformats were then constructed. For radiation dose reduction, the following was used: automated exposure control, adjustment of mA and/or kV according to patient size. COMPARISON: [facility], CT, CT CERVICAL SPINE WO CON, 06/15/2018, 16:30. FINDINGS: Image quality: Excellent. Bones: No acute fractures or dislocations. Multilevel cervical spondylitic changes as before. Craniocervical junction is intact. C1-C2 relationship is preserved. Visualized superior ribs are intact. Soft tissues: Prevertebral soft tissues are normal in thickness. No paravertebral hematomas. No apical pneumothoraces. IMPRESSION: CT cervical spine without acute fracture or malalignment. Multilevel cervical spondylosis. Dictated by: Paulino Murphy M.D. on 02/04/2019 at 20:46 Approved by: Paulino Murphy M.D. on 02/04/2019 at 20:49 Discharge Plan Departure Patient Disposition: Home Clinical Impression: Hypoglycemia Closed head injury Qualifiers: Encounter type: initial encounter Qualified Code(s): S09.90XA - Unspecified injury of head, initial encounter Discharge Date/Time: 02/04/19 21:57 Interventions: ED Discharge Assessment Last Done: 02/04/19 21:57 Instructions: DI for Concussion, DI for Diabetes Type 1 -- Adult Activity Restrictions/Additional Instructions: Your CT scans look good. Your blood sugar has been stable in the emergency department. Please be sure to get a good meal that corresponds to the insulin you are taking, to prevent further episodes of low blood sugar and of falling and injury. Prescriptions: No Action ergocalciferol (vitamin D2) 50,000 unit capsule 50,000 unit PO QWEEK RF: 0 duloxetine 60 mg capsule,delayed release(DR/EC) 60 mg PO DAILY 30 Days Qty: 30 RF: 5 levothyroxine 175 mcg tablet 175 mcg PO QAM Qty: 30 RF: 11 losartan 25 mg tablet 25 mg PO QDAY Qty: 90 RF: 1 metoprolol tartrate 100 mg tablet 100 mg PO BID Qty: 180 RF: 5 rosuvastatin 20 mg tablet 20 mg PO BEDTIME 30 Days Qty: 30 RF: 5 tamsulosin 0.4 mg capsule 0.4 mg PO BEDTIME Qty: 30 RF: 5 furosemide 20 MG tablet 20 mg PO QDAY Qty: 30 RF: 11 nystatin 100,000 unit/gram cream 1 applictn TOP BID Qty: 30 RF: 1 insulin aspart U-100 [Novolog U-100 Insulin aspart] 100 unit/mL solution 20 unit SUBCUT QAC Qty: 2 RF: 12 insulin glargine [Lantus U-100 Insulin] 100 unit/mL solution 60 unit SUBCUT QDAY Qty: 2 RF: 11 esomeprazole magnesium [Nexium] 40 mg capsule,delayed release(DR/EC) 40 mg PO Q DAY Qty: 90 RF: 1 Syringes: 1cc Insulin Syringes with Franklin .Route .MEDSUPPLY Qty: 100 RF: 3 Glucose: Test Strips See Rx Instructions .Route .MEDSUPPLY Qty: 100 RF: 6 gabapentin 600 mg tablet 600 mg PO TID Qty: 90 RF: 5 methocarbamol 500 mg tablet 500 mg PO QID Qty: 120 RF: 5 aspirin 81 mg tablet,delayed release (DR/EC) 2 tab PO DAILY RF: 0 docusate sodium [Col-Rite] 250 mg capsule RF: 0 Referrals: Pb Montero MD [Primary Care Provider] -
--- NOTE | 2019-02-04 19:49 | ED_ITS ---
HPI - General Adult General Chief complaint: Diabetic Problem Stated complaint: Fell backwards in Garage Time Seen by Provider: 02/04/19 18:59 Source: patient and family Mode of arrival: ambulatory Limitations: no limitations History of Present Illness HPI narrative: Patient is brought to the emergency department after a fall at around 6:00 p.m., after patient's blood sugar dropped to 36. Patient's states that this is not necessarily abnormal for the patient, as he often does not eat enough at work. However, her main concern was that the patient fell backward and struck his head on the concrete. called EMS, who gave the patient oral glucose, after which he did notice improvement. Patient was also given a sandwich by staff immediately upon arrival here. Patient states he has a ?sore spot? on the back of his head, but otherwise, does not have any headache. No neck pain. No back pain. No rib pain. No shortness of breath or chest pain now or during the event. No abdominal pain. No vomiting since hitting his head. No neurologic deficits. Patient complains of some drowsiness now but both patient and state this is normal for the patient in the evening. Related Data Home Medications Medication Instructions Recorded Confirmed ergocalciferol (vitamin D2) 50,000 50,000 unit PO QWEEK 08/11/18 01/07/19 unit capsule aspirin 2 tab PO DAILY 09/16/18 01/07/19 docusate sodium [Col-Rite] 09/16/18 01/07/19 Previous Rx's Medication Instructions Recorded furosemide 20 mg PO QDAY #30 tabs 09/18/17 duloxetine 60 mg capsule,delayed 60 mg PO DAILY 30 Days #30 cap 08/11/18 release levothyroxine 175 mcg tablet 175 mcg PO QAM #30 tab 08/11/18 losartan 25 mg tablet 25 mg PO QDAY #90 tab 08/11/18 metoprolol tartrate 100 mg tablet 100 mg PO BID #180 tab 08/11/18 rosuvastatin 20 mg tablet 20 mg PO BEDTIME 30 Days #30 tab 08/11/18 tamsulosin 0.4 mg capsule 0.4 mg PO BEDTIME #30 cap 08/11/18 nystatin 100,000 unit/gram topical 1 applictn TOP BID #30 gram 09/01/18 cream insulin aspart U- 100 100 unit/mL 20 unit SUBCUT QAC #2 vial 09/23/18 subcutaneous solution insulin glargine (U- 100) 100 60 unit SUBCUT QDAY #2 vial 09/23/18 unit/mL subcutaneous solution esomeprazole magnesium 40 mg 40 mg PO Q DAY #90 cap 11/12/18 capsule,delayed release Syringes: 1cc Insulin Syringes #100 each 11/19/18 with [place] Glucose: Test Strips #100 each 11/30/18 gabapentin 600 mg tablet 600 mg PO TID #90 tab 12/02/18 methocarbamol 500 mg tablet 500 mg PO QID #120 tab 12/10/18 Allergies Allergy/AdvReac Type Severity Reaction Status Date / Time adhesive tape [ADHESIVE TAPE] AdvReac Mild PATIENT Verified 01/07/19 15:16 STATES IT PEELS HIS SKIN OFF lisinopril [LISINOPRIL] AdvReac Mild COUGH Verified 01/07/19 15:16 prochlorperazine AdvReac Unknown Verified 01/07/19 15:16 [PROCHLORPERAZINE] shellfish derived AdvReac Unknown Verified 01/07/19 15:16 [SHELLFISH DERIVED] Review of Systems Constitutional Denies chills, Denies fever(s), Denies lethargy and Denies weakness Comments: Weakness, decreased blood sugar. Eyes Denies change in vision, Denies eye discharge, Denies irritation and Denies loss of vision ENT Ears, Nose, Mouth, and Throat: Denies change in voice, Denies neck pain and Denies sore throat Cardiovascular Denies chest pain, Denies irregular heart rhythm, Denies lightheadedness, Denies palpitations, Denies dyspnea, Denies dyspnea on exertion and Denies orthopnea Respiratory Denies cough, Denies dyspnea, Denies dyspnea on exertion and Denies wheezing Gastrointestinal Gastrointestinal: Denies abdominal pain, Denies change in bowel habits, Denies diarrhea, Denies nausea and Denies vomiting Genitourinary Denies hematuria, Denies flank pain, Denies urinary incontinence and Denies urinary urgency Musculoskeletal Denies neck pain Integumentary/Breasts Denies pruritus, Denies erythema, Denies rash and Denies wounds Neurologic Denies confusion, Denies loss of vision and Denies weakness Psychiatric Denies anxiety, Denies confusion, Denies depression, Denies homicidal ideation and Denies suicidal ideation Endocrine Denies palpitations Hematologic/Lymphatic Denies easy bruising Allergic/Immunologic Denies wheezing [facility] Medical History Hx of drug abuse (Acute) Myocardial infarct (Acute 10/17/06) Atrial fibrillation (Chronic Unknown) Carotid artery disease (Chronic Unknown) Coronary artery disease (Chronic Unknown) Diabetes (Chronic Unknown) Erectile dysfunction (Chronic Unknown) GERD (gastroesophageal reflux disease) (Chronic Unknown) Hyperlipemia (Chronic Unknown) Hypertension (Chronic Unknown) Hypothyroidism (Chronic Unknown) Obstructive sleep apnea (Chronic Unknown) Peripheral vascular disease (Chronic Unknown) Chickenpox (Resolved Unknown) Hepatitis C (Resolved Unknown) Measles (Resolved Unknown) Surgical History History of penile implant (Acute) History of open reduction and internal fixation (ORIF) procedure (Resolved 10/06 10) Hx of cataract surgery (Resolved ~2004) Hx of coronary artery bypass surgery (Resolved 10/2006) S/P bilateral below knee amputation (Resolved Unknown) Family History Father Age: 83 Heart disease ETOH abuse Mother Age: 91 Heart disease Alzheimer's dementia without behavioral disturbance, Alzheimer's disease of unspecified onset Social History Smoking Status: Never smoker alcohol intake: never substance use type: does not use Family History Father Age: 83 Heart disease ETOH abuse Mother Age: 91 Heart disease Alzheimer's dementia without behavioral disturbance, Alzheimer's disease of unspecified onset Social History Smoking Status: Never smoker alcohol intake: never substance use type: does not use Exam Initial Vital Signs Initial Vital Signs: Vital Signs Temperature 97.2 F L 02/04/19 18:52 Pulse Rate 91 H 02/04/19 18:52 Respiratory Rate 20 02/04/19 18:52 Blood Pressure 153/96 H 02/04/19 18:52 Pulse Oximetry 96 02/04/19 18:52 Const General: cooperative and well developed Nutritional Appearance: well nourished Orientation: alert, awake, oriented x3 and not confused HENMT Head: normocephalic and atraumatic Ears: external ears normal Nose: external nose normal and No nasal discharge Face and sinus: face symmetric and No dry mucous membranes Mouth: oral mucosae normal and moist mucous membranes Teeth and gingiva: dentition normal Eyes General: appearance normal, both eyes and all related structures Eyelids: eyelids normal Conjunctivae: conjunctivae normal Sclera: sclerae normal Pupils: PERRL EOM: EOM intact bilaterally Neck Neck: normal visual inspection, trachea midline, No lymphadenopathy, No midline deformity and No JVD Lymphatic: No lymphedema Chest Chest: normal inspection of the chest Resp Effort & Inspection: normal respiratory effort, able to speak in complete sentences, no respiratory distress and no use of accessory muscles Auscultation: clear to auscultation bilaterally, no rales, no rhonchi and no wheezes Cardio Rate: regular rate Rhythm: regular rhythm Heart Sounds: no click, no gallops, no murmurs and no rubs Pulses: normal peripheral pulses GI Inspection: non-distended Palpation: soft, no hepatosplenomegaly, No guarding, No pulsatile mass and No tender Auscultation: normal bowel sounds Back/Spine/Pelvis Back: No CVA tenderness Cervical Spine: cervical ROM normal and No pain with cervical ROM Thoracic/Lumbar Spine: thoracic and lumbar spine normal to inspection Skin General: no rashes or lesions noted, No jaundice and No petechiae Neuro General: alert, oriented x3, gait normal and no focal motor deficits Speech: speech normal Extrem General: full ROM Other: Patient has bilateral [id number] amputations, with prostheses in place. Psych Appearance: well kempt Mental Status: mental status grossly normal Attitude: cooperative Thought Content: normal and suicidality Judgment: judgment good Course Course Narrative: Patient was overall at baseline, and had a fingerstick glucose 92 in the emergency department. He had been given oral glucose by EMS, and a sandwich upon arrival here. He was worked up with labs, and CT of the brain and C-spine. Labs showed a blood glucose in the 60s, so patient was given further oral intake. Patient was observed for a couple more hours in the emergency department, after which his blood sugar was found to have stabilized in the normal range. His workup was negative. Patient's spouse, as well as patient, s tated that the symptoms other than the head injury were something the patient experienced regularly, and they were not concerned about the drop in blood sugar or the drowsiness. Patient did not have any symptoms consistent with sequela of concussion, as his drowsiness was at baseline for the time of day. I felt the patient was stable for discharge home. We have discussed home management of the symptoms, as well as prevention of hypoglycemia, and the usual indications for return. Orders Ordered: Discontinued Medications Sodium Chloride (Normal Saline 0.9%) 1,000 mls @ 1,000 mls/hr IV BOLUS ONE Stop: 02/04/19 20:13 Last Infusion: 02/04/19 20:30 Dose: 0 mls/hr Admin: 02/04/19 19:28 Dose: 1,000 mls/hr Vital Signs - 8 hr 02/04/19 18:52 Temperature 97.2 F L Pulse Rate 91 H Respiratory Rate 20 Blood Pressure 153/96 H Pulse Oximetry 96 Medical Decision Making Medical Records Medical records reviewed: Yes I reviewed the patient's medical records. Lab Data Lab results reviewed: Yes I reviewed the patient's lab results. Result diagrams: 02/04/19 19:10 02/04/19 19:10 Lab Results 02/04/19 02/04/19 Range/Units 19:10 19:10 WBC 7.7 (4.5-11.0) X10^3/uL RBC 4.68 (4.5-5.9) X10^6/uL Hgb 13.1 L (13.5-17.5) g/dL Hct 40.2 L (41-53) % MCV 85.9 (80-100) fL MCH 27.9 (26-34) PG MCHC 32.5 (30-36) % RDW 13.8 (11.6-14.8) % Plt Count 202 (150-400) X10^3/uL Neut % (Auto) 38.7 L (50-75) % Lymph % (Auto) 48.9 H (25-40) % Grant % (Auto) 8.4 (3-14) % Eos % (Auto) 3.2 (2-4) % Baso % (Auto) 0.8 (0-2) % Neut # (Auto) 3000 (2203-0095) /uL Lymph # (Auto) 3800 (1051-6523) /uL Grant # (Auto) 600 (0-900) /uL Eos # (Auto) 200 (0-450) /uL Baso # (Auto) 100 (0-100) /uL Sodium 136 L (137-145) mmol/L Potassium 3.7 (3.4-5.1) mmol/L Chloride 99 (98-107) mmol/L Carbon Dioxide 27 (22-32) mmol/L BUN 33 H (9-20) mg/dL Creatinine 1.00 (0.66-1.25) mg/dL Estimated GFR > 60.0 (>60) mL/min BUN/Creatinine Ratio 33.0 H (6-22) Glucose 64 L (80-110) mg/dL Calcium 9.0 (8.4-10.2) mg/dL Total Bilirubin 0.6 (0.2-1.3) mg/dL AST 27 (17-59) IU/L ALT 26 (21-72) IU/L Alkaline Phosphatase 123 (38-126) U/L Total Protein 7.4 (6.3-8.2) g/dL Albumin 4.1 (3.5-5.0) g/dL Globulin 3.3 (1.7-4.1) g/dL Albumin/Globulin Ratio 1.2 (1.0-2.8) Point of Care Testing Glucose POC 152 Point of care testing: Point of Care Testing Glucose POC [address] scan - head: Attestation: I personally reviewed and interpreted this imaging study as follows: My impression: Unremarkable Radiologist's impression: [address] [address] [address] Scan Report Signed Patient: Tulio Yi LMR#: [id number] : 6Acct:[id number] Age/Sex: 73 / MDate of Service: 02/04/19 Loc: ED Accession Number: [id number] Procedure: CT head/brain wo con Ordering Provider: Keyona Alvarez MD PROCEDURE: CT HEAD/BRAIN WO CON INDICATIONS: injury TECHNIQUE: Noncontrast 4.5 mm thick angled axial sections acquired from the foramen magnum to the vertex, with coronal and sagittal reformats. For radiation dose reduction, the following was used: automated exposure control, adjustment of mA and/or kV according to patient size. COMPARISON: [facility], CT, CT HEAD/BRAIN WO CON, 06/15/2018, 16:30. [facility], CT, HEAD WITHOUT CONTRAST, 01/01/2015, 1:10. FINDINGS: Image quality: Excellent. CSF spaces: Basal cisterns are patent. No extra-axial fluid collections. The ventricles are symmetric in size and shape. Brain: No intracranial bleeds or masses. There is cerebral volume loss for age, with resultant ventricular and sulcal prominence. There are periventricular and deep white matter chronic small vessel ischemic changes. There is intracranial internal carotid artery atherosclerosis. Skull and face: Calvarium and visualized facial bones appear intact, without suspicious lesions. There is mild, focal superficial soft tissue contusion and mild skin thickening of the midline posterior vertex scalp. Chronic appearing nasal bone fractures, unchanged. Sinuses: Visualized sinuses and mastoids are clear. IMPRESSION: CT head without acute intracranial abnormalities. Superficial soft tissue contusion of the midline posterior vertex without underlying calvarial fractures. Dictated by: Paulino Murphy M.D. on 02/04/2019 at 20:42 Approved by: Paulino Murphy M.D. on 02/04/2019 at 20:46 CT cervical spine: Attestation: I personally reviewed and interpreted this imaging study as follows: My impression: unremarkable Radiologist's impression: PROCEDURE: CT CERVICAL SPINE WO CON INDICATIONS: glf, hit head on concrete TECHNIQUE: Noncontrast 3 mm thick sections acquired from the skull base to the T4 level. Sagittal and coronal reformats were then constructed. For radiation dose reduction, the following was used: automated exposure control, adjustment of mA and/or kV according to patient size. COMPARISON: [facility], CT, CT CERVICAL SPINE WO CON, 06/15/2018, 16:30. FINDINGS: Image quality: Excellent. Bones: No acute fractures or dislocations. Multilevel cervical spondylitic changes as before. Craniocervical junction is intact. C1-C2 relationship is preserved. Visualized superior ribs are intact. Soft tissues: Prevertebral soft tissues are normal in thickness. No parave rtebral hematomas. No apical pneumothoraces. IMPRESSION: CT cervical spine without acute fracture or malalignment. Multilevel cervical spondylosis. Dictated by: Paulino Murphy M.D. on 02/04/2019 at 20:46 Approved by: Paulino Murphy M.D. on 02/04/2019 at 20:49 Discharge Plan Departure Patient Disposition: Home Clinical Impression: Hypoglycemia Closed head injury Qualifiers: Encounter type: initial encounter Qualified Code(s): S09.90XA - Unspecified injury of head, initial encounter Discharge Date/Time: 02/04/19 21:57 Interventions: ED Discharge Assessment Last Done: 02/04/19 21:57 Instructions: DI for Concussion, DI for Diabetes Type 1 -- Adult Activity Restrictions/Additional Instructions: Your CT scans look good. Your blood sugar has been stable in the emergency de partment. Please be sure to get a good meal that corresponds to the insulin you are taking, to prevent further episodes of low blood sugar and of falling and injury. Prescriptions: No Action ergocalciferol (vitamin D2) 50,000 unit capsule 50,000 unit PO QWEEK RF: 0 duloxetine 60 mg capsule,delayed release(DR/EC) 60 mg PO DAILY 30 Days Qty: 30 RF: 5 levothyroxine 175 mcg tablet 175 mcg PO QAM Qty: 30 RF: 11 losartan 25 mg tablet 25 mg PO QDAY Qty: 90 RF: 1 metoprolol tartrate 100 mg tablet 100 mg PO BID Qty: 180 RF: 5 rosuvastatin 20 mg tablet 20 mg PO BEDTIME 30 Days Qty: 30 RF: 5 tamsulosin 0.4 mg capsule 0.4 mg PO BEDTIME Qty: 30 RF: 5 furosemide 20 MG tablet 20 mg PO QDAY Qty: 30 RF: 11 nystatin 100,000 unit/gram cream 1 applictn TOP BID Qty: 30 RF: 1 insulin aspart U-100 [Novolog U-100 Insulin aspart] 100 unit/mL solution 20 unit SUBCUT QAC Qty: 2 RF: 12 insulin glargine [Lantus U-100 Insulin] 100 unit/mL solution 60 unit SUBCUT QDAY Qty: 2 RF: 11 esomeprazole magnesium [Nexium] 40 mg capsule,delayed release(DR/EC) 40 mg PO Q DAY Qty: 90 RF: 1 Syringes: 1cc Insulin Syringes with [place] .Route .MEDSUPPLY Qty: 100 RF: 3 Glucose: Test Strips See Rx Instructions .Route .MEDSUPPLY Qty: 100 RF: 6 gabapentin 600 mg tablet 600 mg PO TID Qty: 90 RF: 5 methocarbamol 500 mg tablet 500 mg PO QID Qty: 120 RF: 5 aspirin 81 mg tablet,delayed release (DR/EC) 2 tab PO DAILY RF: 0 docusate sodium [Col-Rite] 250 mg capsule RF: 0 Referrals: Pb Montero MD [Primary Care Provider] -
[2019-02-04 21:57] VITALS: BP 134/80; PULSE 97; RESP 18; TEMP 37.1; O2SAT 100
== END 2019-02-04 21:57 | disposition home or self-care (01) ==
PROVIDERS: Emergency Provider Emergency Medicine; Family Provider Student in an Organized Health Care Education/Training Program; PCP Student in an Organized Health Care Education/Training Program
DX: E16.2 Hypoglycemia, unspecified (principal); S09.90XA Unspecified injury of head, initial encounter; W18.30XA Fall on same level, unspecified, initial encounter
CPT/HCPCS: 36591; 70450; 72125; 80053; 82962; 85025; 96360; 99283; 99284

== ENCOUNTER 2019-02-15 17:57 | Observation (INO) | payer OTHER, MEDICARE, SELFPAY ==
[2019-02-15] VITALS (34 sets, daily range): BP systolic 112–158; BP diastolic 53–128; PULSE 78–171; RESP 18–28; TEMP 37.3–37.6; O2SAT 91–95; BMI 43.9; BMI 40.7
--- NOTE | 2019-02-15 | DI.ECHO.S_ITS ---
[facility] +---------+ : : [address] : : : : [id number] : : : : Phone: [phone]+ Echocardiogram Report + + :Name: JANETTE ADKINS Study Date: 02/16/2019 Height: 69 in : :[facility] Weight: 222 lb : : Gender: Male BSA: 2.2 m2 : :: 1945 Age: 73 yrs BP: 148/66 mmHg: :Reason For Study: Atrial fibrillation : : Performed By: Alla Leach : :Referring: NEVA SYLVESTER : + + Interpretation Summary The patient was in atrial fibrillation with controlled ventricular rate during the exam. The left ventricle is normal in size. The ejection fraction is estimated to be 50-55%. The right ventricle is mildly dilated. Right ventricular systolic function is moderate to severely reduced. Right ventricular systolic function has decreased since previous exam. There is mild to moderate tricuspid regurgitation. Compared to the prior echo exam, there has been an increase in TR severity. The right ventricular systolic pressure is estimated to be at least 53 mmHg based on an estimated right atrial pressure of 8 mm Hg. There is moderate pulmonary hypertension. Compared to the prior echo exam, there has been an increase in the severity of pulmonary hypertension. Procedure: A two-dimensional transthoracic echocardiogram with color flow and Doppler was performed. The study quality was technically difficult. Comparison is made with the echocardiogram of 03-09-18. 1.5 cc of Definity contrast was used to improve image quality. The heart rate ranged between 66- 78 bpm during the study. The patient was in atrial fibrillation with controlled ventricular rate during the exam. The patient had a bundle branch block rhythm during the exam. Left Ventricle: The left ventricle is normal in size. There is normal left ventricular wall thickness. There is no thrombus. The ejection fraction is estimated to be 50-55%. Septal motion is consistent with conduction abnormality. Diastolic function could not be accurately assessed due to atrial fibrillation. Right Ventricle: The right ventricle is mildly dilated. Right ventricular systolic function is moderate to severely reduced. Right ventricular systolic function has decreased since previous exam. Atria: The left atrium is severely dilated. The left atrium has remained unchanged in size since the prior echo exam. The right atrium is moderately dilated. The right atrium has significantly increased in size since the prior echo exam. The interatrial septum is intact with no evidence for an atrial septal defect. Mitral Valve: The mitral valve leaflets appear borderline thickened, but open well. There is mild mitral annular calcification. There is mild mitral regurgitation. Aortic Valve: The aortic valve is trileaflet. The aortic valve opens well. The aortic valve is mildly calcified. There is discrete nodular thickening of the non- coronary cusp. No aortic regurgitation is present. Tricuspid Valve: The tricuspid valve leaflets are thin and pliable. There is mild to moderate tricuspid regurgitation. The right ventricular systolic pressure is estimated to be at least 53 mmHg based on an estimated right atrial pressure of 8 mm Hg. Compared to the prior echo exam, there has been an increase in TR severity. Compared to the prior echo exam, there has been an increase in the severity of pulmonary hypertension. There is moderate pulmonary hypertension. Pulmonic Valve: The pulmonic valve is not well seen, but is grossly normal. There is trace pulmonic regurgitation. Great Vessels: The aortic root is normal size. The ascending aorta is at the upper limits of normal in size. The aortic arch could not be visualized. The IVC is dilated (diameter is greater than 2.1 cm) yet it collapses greater than 50% with a sniff. This suggests a right atrial pressure of 8 mm Hg. Pericardium/ Pleura There is no pericardial effusion. There is no pleural effusion. MMode/2D Measurements & Calculations LVIDd: 5.3 cm Ao root diam: 3.3 cm LVIDs: 3.8 cm Aortic Jxn: 2.6 cm FS: 28.1 % asc Aorta Diam: 3.5 cm IVSd: 0.90 cm LVPWd: 0.74 cm LV guzmán. diameter/BSA (cm/m^2): 2.4 LV sys. diameter/BSA (cm/m^2): 1.8 LA dimension: 4.6 cm RA long axis: 5.5 cm LA A2 area: 25.5 cm2 RA area: 20.8 cm2 LA A4 area: 26.9 cm2 RA vol: 67.0 ml LA length (vol): 6.5 cm RA : 31.1 ml/m2 LA vol: 89.6 ml IVC diam: 3.2 cm LA vol index: 41.5 ml/m2 RVDd major: 4.9 cm RVD1 (basal): 3.5 cm RVD2 (mid): 3.0 cm Doppler Measurements & Calculations Ao V2 max: 110.0 cm/sec Med Peak E' Kendell: 4.8 cm/sec Ao V2 mean: 71.4 cm/sec MV P1/2t: 38.4 msec Ao max P.8 mmHg Ao mean P.4 mmHg Ao V2 VTI: 23.8 cm TR max kendell: 334.7 cm/sec MV V2 mean: 38.3 cm/sec TR max P.8 mmHg MV mean P.0 mmHg PA V2 max: 70.2 cm/sec MV V2 VTI: 16.4 cm PA V2 mean: 44.1 cm/sec PA mean P.91 mmHg PA Accel Time: 0.09 sec MV P1/2t max kendell: 110.5 cm/sec MVA(P1/2t): 5.7 cm2 Reading Physician:SCOTT
--- NOTE | 2019-02-15 18:26 | DI.RAD.S_ITS ---
PROCEDURE: XR CHEST 2V INDICATIONS: shortness of breath TECHNIQUE: 2 views of the chest were acquired. COMPARISON: [facility], , XR CHEST 1V, 06/15/2018, 16:18. FINDINGS: Surgical changes and devices: Status post CABG procedure. Lungs and pleura: Increased opacification noted in the posterior aspect of the right lung base concerning for ammonia. No pleural effusions or pneumothorax. Mediastinum: Mediastinal contours are normal. Heart size is normal. Bones and chest wall: No suspicious bony abnormalities. Soft tissues appear unremarkable. IMPRESSION: Increased right basilar opacification concerning for pneumonia. Dictated by: Monique Ordoñez MD, PhD on 02/15/2019 at 19:10 Approved by: Monique Ordoñez MD, PhD on 02/15/2019 at 19:10
--- NOTE | 2019-02-15 18:34 | ED.DIZZY ---
HPI - Dizziness General Chief Complaint: Dizziness Stated Complaint: dizziness Time Seen by Provider: 02/15/19 18:00 Source: patient, family and EMS Mode of arrival: EMS Limitations: no limitations History of Present Illness HPI Narrative: Nonsmoker with history of paroxysmal AFib and diabetes presents with the chief complaint of dizziness and fatigue worsening over the past 4 5 days. He states he has had black stools over that time frame and decreased appetite with some tenderness in his upper abdomen. He denies nausea, vomiting or diarrhea. He states he becomes significantly fatigued and short of breath with any exertion. He has not taken aspirin in 5 days and denies use of Pepto-Bismol. He states he has never had any significant gastrointestinal bleeding and denies any history of colonoscopy. He does not drink alcohol Related Data Home Medications Medication Instructions Recorded Confirmed aspirin 2 tab PO DAILY 09/16/18 02/15/19 docusate sodium [Col-Rite] 250 mg PO DAILY PRN 09/16/18 02/15/19 Lantus U-100 Insulin 57 units SUBCUT DAILY 02/15/19 02/15/19 nystatin 1 applictn TOP BID PRN 02/15/19 02/15/19 Previous Rx's Medication Instructions Recorded furosemide 20 mg PO QDAY #30 tabs 09/18/17 levothyroxine 175 mcg tablet 175 mcg PO QAM #30 tab 08/11/18 metoprolol tartrate 100 mg tablet 100 mg PO BID #180 tab 08/11/18 tamsulosin 0.4 mg capsule 0.4 mg PO BEDTIME #30 cap 08/11/18 insulin aspart U- 100 100 unit/mL 20 unit SUBCUT QAC #2 vial 09/23/18 subcutaneous solution esomeprazole magnesium 40 mg 40 mg PO Q DAY #90 cap 11/12/18 capsule,delayed release Syringes: 1cc Insulin Syringes #100 each 11/19/18 with [place] Glucose: Test Strips #100 each 11/30/18 losartan 25 mg tablet 25 mg PO QDAY #90 tab 02/10/19 Allergies Allergy/AdvReac Type Severity Reaction Status Date / Time adhesive tape [ADHESIVE TAPE] AdvReac Mild PATIENT Verified 02/15/19 18:15 STATES IT PEELS HIS SKIN OFF lisinopril [LISINOPRIL] AdvReac Mild COUGH Verified 02/15/19 18:15 prochlorperazine AdvReac Unknown Verified 02/15/19 18:15 [PROCHLORPERAZINE] shellfish derived AdvReac Unknown Verified 02/15/19 18:15 [SHELLFISH DERIVED] Review of Systems Constitutional Denies chills, Denies fever(s), Denies lethargy and Reports weakness Eyes Denies change in vision, Denies eye discharge, Denies irritation and Denies loss of vision ENT Ears, Nose, Mouth, and Throat: Denies change in voice, Denies neck pain and Denies sore throat Cardiovascular Denies chest pain, Denies irregular heart rhythm, Denies lightheadedness, Denies palpitations, Denies dyspnea, Denies dyspnea on exertion and Denies orthopnea Respiratory Denies cough, Denies dyspnea, Denies dyspnea on exertion and Denies wheezing Gastrointestinal Gastrointestinal: Denies abdominal pain, Reports melena, Denies change in bowel habits, Denies diarrhea, Denies nausea and Denies vomiting Genitourinary Denies hematuria, Denies flank pain, Denies urinary incontinence and Denies urinary urgency Musculoskeletal Denies neck pain Integumentary/Breasts Denies pruritus, Denies erythema, Denies rash and Denies wounds Neurologic Denies confusion, Denies loss of vision and Reports weakness Psychiatric Denies anxiety, Denies confusion, Denies depression, Denies homicidal ideation and Denies suicidal ideation Endocrine Denies palpitations Hematologic/Lymphatic Denies easy bruising Allergic/Immunologic Denies wheezing [facility] Medical History Hx of drug abuse (Acute) Myocardial infarct (Acute 10/17/06) Atrial fibrillation (Chronic Unknown) Carotid artery disease (Chronic Unknown) Coronary artery disease (Chronic Unknown) Diabetes (Chronic Unknown) Erectile dysfunction (Chronic Unknown) GERD (gastroesophageal reflux disease) (Chronic Unknown) Hyperlipemia (Chronic Unknown) Hypertension (Chronic Unknown) Hypothyroidism (Chronic Unknown) Obstructive sleep apnea (Chronic Unknown) Peripheral vascular disease (Chronic Unknown) Chickenpox (Resolved Unknown) Hepatitis C (Resolved Unknown) Measles (Resolved Unknown) Surgical History History of penile implant (Acute) History of open reduction and internal fixation (ORIF) procedure (Resolved 09/2010) Hx of cataract surgery (Resolved ~2004) Hx of coronary artery bypass surgery (Resolved 10/2006) S/P bilateral below knee amputation (Resolved Unknown) Family History Father Age: 83 Heart disease ETOH abuse Mother Age: 91 Heart disease Alzheimer's dementia without behavioral disturbance, Alzheimer's disease of unspecified onset Social History household members: spouse Smoking Status: Never smoker alcohol intake: never substance use type: does not use Family History Father Age: 83 Heart disease ETOH abuse Mother Age: 91 Heart disease Alzheimer's dementia without behavioral disturbance, Alzheimer's disease of unspecified onset Social History household members: spouse Smoking Status: Never smoker alcohol intake: never substance use type: does not use Exam Narrative Exam Narrative: GENERAL: 73-year-old male appears older than stated age, he is unwell appearing, becomes weak and SOB with minimal exertion HEAD: Atraumatic. Normocephalic. No temporal or scalp tenderness. EYES: Pupils equal round and reactive. Extraocular motions intact. No scleral icterus. No injection or drainage. ENT: Dry membranes. Nose without bleeding, purulent drainage or septal hematoma. Throat without erythema, tonsillar hypertrophy or exudate. Uvula midline. Airway patent. NECK: Trachea midline. No JVD or lymphadenopathy. Supple, nontender, no meningeal signs. CARDIOVASCULAR: Irregular rate and rhythm without murmurs, gallops, or rubs. RESPIRATORY: Clear to auscultation. Breath sounds equal bilaterally. No wheezes, rales, or rhonchi. GASTROINTESTINAL: Abdomen soft, non-tender, nondistended. No hepato-splenomegaly, or palpable masses. No guarding. RECTAL: mildly heme positive. No pain. EXTREMITIES: No clubbing, cyanosis, or edema. B/L amputee BACK: Nontender without deformity or crepitance. No flank tenderness. NEURO: AOx3. SKIN: No rash or erythema. Initial Vital Signs Initial Vital Signs: Vital Signs Temperature 99.2 F 02/15/19 18:15 Pulse Rate 159 H 02/15/19 18:15 Respiratory Rate 21 02/15/19 18:15 Blood Pressure 129/101 H 02/15/19 18:15 Pulse Oximetry 93 02/15/19 18:15 Course Orders Ordered: ED Orders 02/15/19 18:19 EKG-12 Lead Stat 02/15/19 18:26 XR chest 2V Stat 02/15/19 18:40 Complete Blood Count AUTO DIFF Stat Comprehensive Metabolic Panel Stat Hemoglobin A1C % Routine Lactate (Lactic Acid) Stat Magnesium Stat PT [Prothrombin Time INR] Stat PTT [Partial Thromboplastin Time] Stat Troponin I Stat 02/15/19 18:43 Procalcitonin Urgent Type and Screen Stat 02/15/19 21:31 Consult to Dietitian, Adult Routine 02/15/19 21:32 Consult to Physical Therapy Evaluate & Treat 02/15/19 21:33 Consult to Discharge Planning Routine 02/15/19 22:00 MRSA PCR Urgent Respiratory Panel (Film Array) Urgent 02/15/19 22:59 TSH w/ Reflex to FT4 Routine Troponin I Urgent 02/16/19 Basic Metabolic Panel Routine Complete Blood Count AUTO DIFF Routine Procalcitonin Routine Troponin I Routine 02/16/19 00:15 Urinalysis Sreen (Dip Only) Routine Acetaminophen (Tylenol) 650 mg PO Q6HR PRN PRN Reason: As Needed for Fever/Mild Pain Last Admin: 02/16/19 01:01 Dose: 650 mg Dextrose (D50w) 25 gm IV PRN PRN; Protocol PRN Reason: Hypoglycemia Gabapentin (Neurontin) 600 mg PO BID VICK Diltiazem HCl 125 mg/ Dextrose 125 mls @ 5 mls/hr IV TITRATE VICK; Protocol Last Titration: 02/16/19 01:32 Dose: 2.5 mg/hr, 2.5 mls/hr Titration: 02/16/19 00:15 Dose: 5 mg/hr, 5 mls/hr Titration: 02/15/19 23:34 Dose: 10 mg/hr, 10 mls/hr Titration: 02/15/19 22:14 Dose: 15 mg/hr, 15 mls/hr Titration: 02/15/19 21:45 Dose: 0 mg/hr, 0 mls/hr Titration: 02/15/19 19:53 Dose: 10 mg/hr, 10 mls/hr Admin: 02/15/19 19:13 Dose: 5 mg/hr, 5 mls/hr Pantoprazole Sodium 80 mg/ (Sodium Chloride) 100 mls @ 10 mls/hr IV NOW ONE Stop: 02/16/19 04:47 Last Infusion: 02/15/19 19:55 Dose: 0 mls/hr Infusion: 02/15/19 19:29 Dose: 400 mls/hr Admin: 02/15/19 19:14 Dose: 10 mls/hr Sodium Chloride (Normal Saline 0.9%) 1,000 mls @ 125 mls/hr IV CONT VICK Last Admin: 02/15/19 22:20 Dose: 125 mls/hr Azithromycin 500 mg/ Dextrose 250 mls @ 250 mls/hr IV Q24H VICK Stop: 02/17/19 23:01 Last Infusion: 02/16/19 01:32 Dose: 250 mls/hr Admin: 02/16/19 00:10 Dose: 250 mls/hr Ceftriaxone Sodium/Dextrose (Rocephin) 2 gm in 50 mls @ 100 mls/hr IV Q24H [facility] Insulin Aspart (Novolog Flexpen) 0 unit SUBCUT ACHS [facility]; Protocol Last Admin: 02/15/19 22:24 Dose: 7 unit Insulin Aspart (Novolog Flexpen) 3 unit SUBCUT AC [facility] Last Admin: 02/15/19 23:28 Dose: 3 unit Insulin Glargine (Lantus Solostar (Pen)) 57 unit SUBCUT BEDTIME [facility] Last Admin: 02/15/19 23:05 Dose: 57 unit Levothyroxine Sodium (Synthroid) 75 mcg PO 0600 [facility] Levothyroxine Sodium (Synthroid) 100 mcg PO 0600 [facility] Losartan Potassium (Cozaar) 25 mg PO DAILY [facility] Metoprolol Tartrate (Lopressor) 100 mg PO BID [facility] Last Admin: 02/15/19 22:23 Dose: 100 mg Pantoprazole Sodium (Protonix) 40 mg IV DAILY [facility] Tamsulosin HCl (Flomax) 0.4 mg PO BEDTIME [facility] Discontinued Medications Digoxin (Lanoxin) 250 mcg IV NOW ONE Stop: 02/15/19 20:22 Last Admin: 02/15/19 20:50 Dose: 250 mcg Diltiazem HCl (Cardizem) 10 mg IV NOW ONE Stop: 02/15/19 18:49 Last Admin: 02/15/19 19:08 Dose: 10 mg Sodium Chloride (Normal Saline 0.9%) 1,000 mls @ 1,000 mls/hr IV BOLUS ONE Stop: 02/15/19 21:21 Last Infusion: 02/15/19 21:40 Dose: 0 mls/hr Admin: 02/15/19 20:50 Dose: 1,000 mls/hr Magnesium Sulfate (Magnesium Sulfate) 2 gm in 50 mls @ 25 mls/hr IV NOW ONE Stop: 02/16/19 00:54 Last Infusion: 02/16/19 01:55 Dose: 25 mls/hr Admin: 02/15/19 23:50 Dose: 25 mls/hr Ceftriaxone Sodium/Dextrose (Rocephin) 2 gm in 50 mls @ 100 mls/hr IV Q24H [facility] Ceftriaxone Sodium 2,000 mg/ (Sodium Chloride) 100 mls @ 200 mls/hr IV Q24H [facility] Ceftriaxone Sodium 2,000 mg/ (Sodium Chloride) 100 mls @ 200 mls/hr IV NOW ONE Stop: 02/16/19 00:44 Last Admin: 02/16/19 01:36 Dose: 200 mls/hr Reevaluation(s) Reevaluation #1: minimal change after dilt/dilt drip. Dig added. Patient is not anticoagulated, doesn't know time of onset and is not a good candidate for procedural sedation/cardioversion Consultations Consultation #1: hospitalist is happy to accept and will see patient in the ED Vital Signs - 8 hr 02/15/19 19:08 02/15/19 19:10 02/15/19 19:16 Temperature Pulse Rate 162 H 142 H 153 H Respiratory Rate 23 22 Blood Pressure 158/128 H Blood Pressure [Left Arm] 146/61 H 125/60 Pulse Oximetry 92 93 02/15/19 19:20 02/15/19 19:25 02/15/19 19:30 Temperature Pulse Rate 150 H 149 H 151 H Respiratory Rate 23 23 22 Blood Pressure Blood Pressure [Left Arm] 123/97 H 135/66 144/77 H Pulse Oximetry 92 93 92 02/15/19 19:35 02/15/19 19:40 02/15/19 19:45 Temperature Pulse Rate 158 H 157 H 158 H Respiratory Rate 26 H 23 21 Blood Pressure Blood Pressure [Left Arm] 126/72 133/102 H 136/103 H Pulse Oximetry 93 93 02/15/19 19:50 02/15/19 19:55 02/15/19 20:05 Temperature Pulse Rate 159 H 158 H 152 H Respiratory Rate 22 24 25 H Blood Pressure Blood Pressure [Left Arm] 135/73 131/71 124/76 Pulse Oximetry 93 93 91 02/15/19 20:10 02/15/19 20:20 02/15/19 20:30 Temperature Pulse Rate 156 H 158 H 167 H Respiratory Rate 24 22 22 Blood Pressure Blood Pressure [Left Arm] 128/69 113/72 121/86 Pulse Oximetry 93 02/15/19 20:35 02/15/19 20:40 02/15/19 20:45 Temperature Pulse Rate 165 H 161 H 157 H Respiratory Rate 20 20 21 Blood Pressure Blood Pressure [Left Arm] 131/70 146/75 H 128/59 L Pulse Oximetry 93 94 94 02/15/19 20:50 02/15/19 20:55 02/15/19 21:00 Temperature Pulse Rate 166 H 171 H 157 H Respiratory Rate 28 H 20 Blood Pressure 117/69 Blood Pressure [Left Arm] 136/75 134/77 Pulse Oximetry 95 94 02/15/19 21:05 02/15/19 21:10 02/15/19 21:15 Temperature Pulse Rate 156 H 155 H 151 H Respiratory Rate 20 22 25 H Blood Pressure Blood Pressure [Left Arm] 129/73 117/67 138/85 Pulse Oximetry 93 92 93 02/15/19 21:20 02/15/19 21:25 02/15/19 21:30 Temperature Pulse Rate 145 H 146 H 148 H Respiratory Rate 21 23 23 Blood Pressure Blood Pressure [Left Arm] 112/63 129/62 119/72 Pulse Oximetry 92 93 93 02/15/19 21:45 02/15/19 21:52 02/15/19 23:00 Temperature 99.6 F Pulse Rate 144 H 140 H 86 Respiratory Rate 22 18 Blood Pressure 134/53 L 131/70 Blood Pressure [Left Arm] 115/73 Pulse Oximetry 94 95 02/15/19 23:17 02/15/19 23:33 02/16/19 00:02 Temperature 99.1 F Pulse Rate 84 78 Respiratory Rate 27 H Blood Pressure 139/68 126/70 Blood Pressure [Left Arm] Pulse Oximetry 94 02/16/19 00:15 02/16/19 01:10 02/16/19 02:01 Temperature Pulse Rate 78 70 74 Respiratory Rate 23 20 26 H Blood Pressure 147/54 H 127/57 L 126/48 L Blood Pressure [Left Arm] Pulse Oximetry 93 92 92 MDM - Dizziness Lab Data Result diagrams: 02/15/19 18:40 02/15/19 18:40 Lab Results 02/15/19 02/15/19 02/15/19 Range/Units 18:40 18:40 18:40 WBC 6.0 (4.5-11.0) X10^3/uL RBC 4.14 L (4.5-5.9) X10^6/uL Hgb 11.6 L (13.5-17.5) g/dL Hct 36.2 L (41-53) % MCV 87.4 (80-100) fL MCH 28.1 (26-34) PG MCHC 32.1 (30-36) % RDW 13.6 (11.6-14.8) % Plt Count 178 (150-400) X10^3/uL Neut % (Auto) 73.3 (50-75) % Lymph % (Auto) 15.1 L (25-40) % [place] % (Auto) 10.8 (3-14) % Eos % (Auto) 0.4 L (2-4) % Baso % (Auto) 0.4 (0-2) % Neut # (Auto) 4400 (6172-2933) /uL Lymph # (Auto) 900 L (9203-1933) /uL [place] # (Auto) 600 (0-900) /uL Eos # (Auto) 0 (0-450) /uL Baso # (Auto) 0 (0-100) /uL PT (10.1-12.7) SECONDS INR (0.9-1.3) APTT (26.4-36.2) SECONDS Sodium 133 L (137-145) mmol/L Potassium 4.4 (3.4-5.1) mmol/L Chloride 94 L (98-107) mmol/L Carbon Dioxide 22 (22-32) mmol/L BUN 15 (9-20) mg/dL Creatinine 0.70 (0.66-1.25) mg/dL Estimated GFR > 60.0 (>60) mL/min BUN/Creatinine Ratio 21.4 (6-22) Glucose 324 H (80-110) mg/dL Hemoglobin A1c (4.0-6.0) % Lactate 1.4 (0.7-2.1) mmol/L Calcium 8.9 (8.4-10.2) mg/dL Magnesium 1.5 L (1.6-2.3) mg/dL Total Bilirubin 0.8 (0.2-1.3) mg/dL AST 26 (17-59) IU/L ALT 35 (21-72) IU/L Alkaline Phosphatase 139 H (38-126) U/L Troponin I (0.01-0.034) ng/mL Total Protein 6.6 (6.3-8.2) g/dL Albumin 3.7 (3.5-5.0) g/dL Globulin 2.9 (1.7-4.1) g/dL Albumin/Globulin Ratio 1.3 (1.0-2.8) Procalcitonin (<0.5) ng/mL TSH (0.47-4.68) uIU/mL Nasal Screen MRSA (PCR) (Negative) Chlamy pneumoniae PCR (Not Detect) Adenovirus (PCR) (Not Detect) B.parapertussis DNA PCR (Not Detect) Coronavirus OC43 (PCR) (Not Detect) Coronavirus HKU1 (PCR) (Not Detect) Coronavirus 229E (PCR) (Not Detect) Coronavirus NL63 (PCR) (Not Detect) Human Metapneumovir PCR (Not Detect) Influenza Type A (PCR) (Not Detect) Influenza Type B (PCR) (Not Detect) M. pneumoniae (PCR) (Not Detect) Parainfluenza 1 (PCR) (Not Detect) Parainfluenza 2 (PCR) (Not Detect) Parainfluenza 3 (PCR) (Not Detect) Parainfluenza 4 (PCR) (Not Detect) RSV (PCR) (Not Detect) Entero/Rhino (PCR) (Not Detect) Blood Type Antibody Screen 02/15/19 02/15/19 02/15/19 Range/Units 18:40 18:40 18:40 WBC (4.5-11.0) X10^3/uL RBC (4.5-5.9) X10^6/uL Hgb (13.5-17.5) g/dL Hct (41-53) % MCV (80-100) fL MCH (26-34) PG MCHC (30-36) % RDW (11.6-14.8) % Plt Count (150-400) X10^3/uL Neut % (Auto) (50-75) % Lymph % (Auto) (25-40) % [place] % (Auto) (3-14) % Eos % (Auto) (2-4) % Baso % (Auto) (0-2) % Neut # (Auto) (3189-1329) /uL Lymph # (Auto) (6839-0686) /uL [place] # (Auto) (0-900) /uL Eos # (Auto) (0-450) /uL Baso # (Auto) (0-100) /uL PT 13.7 H (10.1-12.7) SECONDS INR 1.2 (0.9-1.3) APTT 27 D (26.4-36.2) SECONDS Sodium (137-145) mmol/L Potassium (3.4-5.1) mmol/L Chloride (98-107) mmol/L Carbon Dioxide (22-32) mmol/L BUN (9-20) mg/dL Creatinine (0.66-1.25) mg/dL Estimated GFR (>60) mL/min BUN/Creatinine Ratio (6-22) Glucose (80-110) mg/dL Hemoglobin A1c 8.7 H (4.0-6.0) % Lactate (0.7-2.1) mmol/L Calcium (8.4-10.2) mg/dL Magnesium (1.6-2.3) mg/dL Total Bilirubin (0.2-1.3) mg/dL AST (17-59) IU/L ALT (21-72) IU/L Alkaline Phosphatase (38-126) U/L Troponin I 0.018 (0.01-0.034) ng/mL Total Protein (6.3-8.2) g/dL Albumin (3.5-5.0) g/dL Globulin (1.7-4.1) g/dL Albumin/Globulin Ratio (1.0-2.8) Procalcitonin (<0.5) ng/mL TSH (0.47-4.68) uIU/mL Nasal Screen MRSA (PCR) (Negative) Chlamy pneumoniae PCR (Not Detect) Adenovirus (PCR) (Not Detect) B.parapertussis DNA PCR (Not Detect) Coronavirus OC43 (PCR) (Not Detect) Coronavirus HKU1 (PCR) (Not Detect) Coronavirus 229E (PCR) (Not Detect) Coronavirus NL63 (PCR) (Not Detect) Human Metapneumovir PCR (Not Detect) Influenza Type A (PCR) (Not Detect) Influenza Type B (PCR) (Not Detect) M. pneumoniae (PCR) (Not Detect) Parainfluenza 1 (PCR) (Not Detect) Parainfluenza 2 (PCR) (Not Detect) Parainfluenza 3 (PCR) (Not Detect) Parainfluenza 4 (PCR) (Not Detect) RSV (PCR) (Not Detect) Entero/Rhino (PCR) (Not Detect) Blood Type Antibody Screen 02/15/19 02/15/19 02/15/19 Range/Units 18:43 18:43 22:00 WBC (4.5-11.0) X10^3/uL RBC (4.5-5.9) X10^6/uL Hgb (13.5-17.5) g/dL Hct (41-53) % MCV (80-100) fL MCH (26-34) PG MCHC (30-36) % RDW (11.6-14.8) % Plt Count (150-400) X10^3/uL Neut % (Auto) (50-75) % Lymph % (Auto) (25-40) % [place] % (Auto) (3-14) % Eos % (Auto) (2-4) % Baso % (Auto) (0-2) % Neut # (Auto) (4752-1856) /uL Lymph # (Auto) (5781-4455) /uL [place] # (Auto) (0-900) /uL Eos # (Auto) (0-450) /uL Baso # (Auto) (0-100) /uL PT (10.1-12.7) SECONDS INR (0.9-1.3) APTT (26.4-36.2) SECONDS Sodium (137-145) mmol/L Potassium (3.4-5.1) mmol/L Chloride (98-107) mmol/L Carbon Dioxide (22-32) mmol/L BUN (9-20) mg/dL Creatinine (0.66-1.25) mg/dL Estimated GFR (>60) mL/min BUN/Creatinine Ratio (6-22) Glucose (80-110) mg/dL Hemoglobin A1c (4.0-6.0) % Lactate (0.7-2.1) mmol/L Calcium (8.4-10.2) mg/dL Magnesium (1.6-2.3) mg/dL Total Bilirubin (0.2-1.3) mg/dL AST (17-59) IU/L ALT (21-72) IU/L Alkaline Phosphatase (38-126) U/L Troponin I (0.01-0.034) ng/mL Total Protein (6.3-8.2) g/dL Albumin (3.5-5.0) g/dL Globulin (1.7-4.1) g/dL Albumin/Globulin Ratio (1.0-2.8) Procalcitonin 0.11 (<0.5) ng/mL TSH (0.47-4.68) uIU/mL Nasal Screen MRSA (PCR) (Negative) Chlamy pneumoniae PCR Not detected (Not Detect) Adenovirus (PCR) Not detected (Not Detect) B.parapertussis DNA PCR Not detected (Not Detect) Coronavirus OC43 (PCR) Not detected (Not Detect) Coronavirus HKU1 (PCR) Not detected (Not Detect) Coronavirus 229E (PCR) Not detected (Not Detect) Coronavirus NL63 (PCR) Not detected (Not Detect) Human Metapneumovir PCR Detected H (Not Detect) Influenza Type A (PCR) Not detected (Not Detect) Influenza Type B (PCR) Not detected (Not Detect) M. pneumoniae (PCR) Not detected (Not Detect) Parainfluenza 1 (PCR) Not detected (Not Detect) Parainfluenza 2 (PCR) Not detected (Not Detect) Parainfluenza 3 (PCR) Not detected (Not Detect) Parainfluenza 4 (PCR) Not detected (Not Detect) RSV (PCR) Not detected (Not Detect) Entero/Rhino (PCR) Not detected (Not Detect) Blood Type O Positive Antibody Screen Negative 02/15/19 02/15/19 02/15/19 Range/Units 22:00 22:59 22:59 WBC (4.5-11.0) X10^3/uL RBC (4.5-5.9) X10^6/uL Hgb (13.5-17.5) g/dL Hct (41-53) % MCV (80-100) fL MCH (26-34) PG MCHC (30-36) % RDW (11.6-14.8) % Plt Count (150-400) X10^3/uL Neut % (Auto) (50-75) % Lymph % (Auto) (25-40) % [place] % (Auto) (3-14) % Eos % (Auto) (2-4) % Baso % (Auto) (0-2) % Neut # (Auto) (4798-1723) /uL Lymph # (Auto) (9928-8119) /uL [place] # (Auto) (0-900) /uL Eos # (Auto) (0-450) /uL Baso # (Auto) (0-100) /uL PT (10.1-12.7) SECONDS INR (0.9-1.3) APTT (26.4-36.2) SECONDS Sodium (137-145) mmol/L Potassium (3.4-5.1) mmol/L Chloride (98-107) mmol/L Carbon Dioxide (22-32) mmol/L BUN (9-20) mg/dL Creatinine (0.66-1.25) mg/dL Estimated GFR (>60) mL/min BUN/Creatinine Ratio (6-22) Glucose (80-110) mg/dL Hemoglobin A1c (4.0-6.0) % Lactate (0.7-2.1) mmol/L Calcium (8.4-10.2) mg/dL Magnesium (1.6-2.3) mg/dL Total Bilirubin (0.2-1.3) mg/dL AST (17-59) IU/L ALT (21-72) IU/L Alkaline Phosphatase (38-126) U/L Troponin I 0.013 (0.01-0.034) ng/mL Total Protein (6.3-8.2) g/dL Albumin (3.5-5.0) g/dL Globulin (1.7-4.1) g/dL Albumin/Globulin Ratio (1.0-2.8) Procalcitonin (<0.5) ng/mL TSH 2.65 (0.47-4.68) uIU/mL Nasal Screen MRSA (PCR) Negative for mrsa (Negative) Chlamy pneumoniae PCR (Not Detect) Adenovirus (PCR) (Not Detect) B.parapertussis DNA PCR (Not Detect) Coronavirus OC43 (PCR) (Not Detect) Coronavirus HKU1 (PCR) (Not Detect) Coronavirus 229E (PCR) (Not Detect) Coronavirus NL63 (PCR) (Not Detect) Human Metapneumovir PCR (Not Detect) Influenza Type A (PCR) (Not Detect) Influenza Type B (PCR) (Not Detect) M. pneumoniae (PCR) (Not Detect) Parainfluenza 1 (PCR) (Not Detect) Parainfluenza 2 (PCR) (Not Detect) Parainfluenza 3 (PCR) (Not Detect) Parainfluenza 4 (PCR) (Not Detect) RSV (PCR) (Not Detect) Entero/Rhino (PCR) (Not Detect) Blood Type Antibody Screen Point of Care Testing Glucose POC 427 Discharge Plan Departure Patient Disposition: Admitted As Inpatient Clinical Impression: Atrial fibrillation with rapid ventricular response, Gastrointestinal hemorrhage with melena Discharge Date/Time: 02/15/19 21:45 Interventions: ED Discharge Assessment Last Done: 02/15/19 21:45 Admit Date/Time: 02/15/19 20:31 Admit Provider: Maverick Hughes
[2019-02-15 18:48] LABS: Add Manual Diff / Slide Review NO; Basophils Absolute Auto 0 /uL (0-100); Basophils Percent Auto 0.4 % (0-2); Eosinophils Absolute Auto 0 /uL (0-450); Eosinophils Percent Auto 0.4 % (2-4); Hematocrit 36.2 % (41-53); Hemoglobin 11.6 g/dL (13.5-17.5); Lymphocytes Absolute Auto 900 /uL (1100-4500); Lymphocytes Percent Auto 15.1 % (25-40); Mean Corpuscular HGB Conc 32.1 % (30-36); Mean Corpuscular Hemoglobin 28.1 PG (26-34); Mean Corpuscular Volume 87.4 fL (80-100); Monocytes Absolute Auto 600 /uL (0-900); Monocytes Percent Auto 10.8 % (3-14); Neutrophils Absolute Auto 4400 /uL (1500-7000); Neutrophils Percent Auto 73.3 % (50-75); Platelet Count 178 X10^3/uL (150-400); Red Blood Cell Count 4.14 X10^6/uL (4.5-5.9); Red Cell Distribution Width 13.6 % (11.6-14.8)
[2019-02-15 19:01] LABS: INR 1.2 (0.9-1.3); Prothrombin Time 13.7 SECONDS (10.1-12.7)
[2019-02-15 19:04] LABS: PTT Partial Thromboplastin Tim 27 SECONDS (26.4-36.2)
[2019-02-15 19:05] LABS: Alanine Aminotransferase 35 IU/L (21-72); Albumin 3.7 g/dL (3.5-5.0); Albumin Globulin Ratio 1.3 (1.0-2.8); Alkaline Phosphatase 139 U/L (38-126); Aspartate Aminotransferase 26 IU/L (17-59); BUN Creatinine Ratio 21.4 (6-22); Bilirubin Total 0.8 mg/dL (0.2-1.3); Blood Urea Nitrogen 15 mg/dL (9-20); Calcium 8.9 mg/dL (8.4-10.2); Carbon Dioxide 22 mmol/L (22-32); Chloride 94 mmol/L (98-107); Estimated Glomerular Filt Rate > 60.0 mL/min (>60); Globulin 2.9 g/dL (1.7-4.1); Glucose 324 mg/dL (80-110); HEMOLYSIS < 15 (0-50); Potassium 4.4 mmol/L (3.4-5.1); Sodium 133 mmol/L (137-145); Total Protein 6.6 g/dL (6.3-8.2)
[2019-02-15 19:06] LABS: Lactate (Lactic Acid) 1.4 mmol/L (0.7-2.1)
[2019-02-15] MEDS: dilTIAZem 5 MG/ML SDV 10 MG IV (19:08)
--- NOTE | 2019-02-15 19:12 | ED_ITS ---
HPI - Dizziness General Chief Complaint: Dizziness Stated Complaint: dizziness Time Seen by Provider: 02/15/19 18:00 Source: patient, family and EMS Mode of arrival: EMS Limitations: no limitations History of Present Illness HPI Narrative: Nonsmoker with history of paroxysmal AFib and diabetes presents with the chief complaint of dizziness and fatigue worsening over the past 4 5 days. He states he has had black stools over that time frame and decreased appetite with some tenderness in his upper abdomen. He denies nausea, vomiting or diarrhea. He states he becomes significantly fatigued and short of breath w ith any exertion. He has not taken aspirin in 5 days and denies use of Pepto- Bismol. He states he has never had any significant gastrointestinal bleeding and denies any history of colonoscopy. He does not drink alcohol Related Data Home Medications Medication Instructions Recorded Confirmed aspirin 2 tab PO DAILY 09/16/18 02/15/19 docusate sodium [Col-Rite] 250 mg PO DAILY PRN 09/16/18 02/15/19 Lantus U-100 Insulin 57 units SUBCUT DAILY 02/15/19 02/15/19 nystatin 1 applictn TOP BID PRN 02/15/19 02/15/19 Previous Rx's Medication Instructions Recorded furosemide 20 mg PO QDAY #30 tabs 09/18/17 levothyroxine 175 mcg tablet 175 mcg PO QAM #30 tab 08/11/18 metoprolol tartrate 100 mg tablet 100 mg PO BID #180 tab 08/11/18 tamsulosin 0.4 mg capsule 0.4 mg PO BEDTIME #30 cap 08/11/18 insulin aspart U- 100 100 unit/mL 20 unit SUBCUT QAC #2 vial 09/23/18 subcutaneous solution esomeprazole magnesium 40 mg 40 mg PO Q DAY #90 cap 11/12/18 capsule,delayed release Syringes: 1cc Insulin Syringes #100 each 11/19/18 with [place] Glucose: Test Strips #100 each 11/30/18 losartan 25 mg tablet 25 mg PO QDAY #90 tab 02/10/19 Allergies Allergy/AdvReac Type Severity Reaction Status Date / Time adhesive tape [ADHESIVE TAPE] AdvReac Mild PATIENT Verified 02/15/19 18:15 STATES IT PEELS HIS SKIN OFF lisinopril [LISINOPRIL] AdvReac Mild COUGH Verified 02/15/19 18:15 prochlorperazine AdvReac Unknown Verified 02/15/19 18:15 [PROCHLORPERAZINE] shellfish derived AdvReac Unknown Verified 02/15/19 18:15 [SHELLFISH DERIVED] Review of Systems Constitutional Denies chills, Denies fever(s), Denies lethargy and Reports weakness Eyes Denies change in vision, Denies eye discharge, Denies irritation and Denies loss of vision ENT Ears, Nose, Mouth, and Throat: Denies change in voice, Denies neck pain and Denies sore throat Cardiovascular Denies chest pain, Denies irregular heart rhythm, Denies lightheadedness, Denies palpitations, Denies dyspnea, Denies dyspnea on exertion and Denies orthopnea Respiratory Denies cough, Denies dyspnea, Denies dyspnea on exertion and Denies wheezing Gastrointestinal Gastrointestinal: Denies abdominal pain, Reports melena, Denies change in bowel habits, Denies diarrhea, Denies nausea and Denies vomiting Genitourinary Denies hematuria, Denies flank pain, Denies urinary incontinence and Denies urinary urgency Musculoskeletal Denies neck pain Integumentary/Breasts Denies pruritus, Denies erythema, Denies rash and Denies wounds Neurologic Denies confusion, Denies loss of vision and Reports weakness Psychiatric Denies anxiety, Denies confusion, Denies depression, Denies homicidal ideation and Denies suicidal ideation Endocrine Denies palpitations Hematologic/Lymphatic Denies easy bruising Allergic/Immunologic Denies wheezing [facility] Medical History Hx of drug abuse (Acute) Myocardial infarct (Acute 10/17/06) Atrial fibrillation (Chronic Unknown) Carotid artery disease (Chronic Unknown) Coronary artery disease (Chronic Unknown) Diabetes (Chronic Unknown) Erectile dysfunction (Chronic Unknown) GERD (gastroesophageal reflux disease) (Chronic Unknown) Hyperlipemia (Chronic Unknown) Hypertension (Chronic Unknown) Hypothyroidism (Chronic Unknown) Obstructive sleep apnea (Chronic Unknown) Peripheral vascular disease (Chronic Unknown) Chickenpox (Resolved Unknown) Hepatitis C (Resolved Unknown) Measles (Resolved Unknown) Surgical History History of penile implant (Acute) History of open reduction and internal fixation (ORIF) procedure (Resolved 09/2010) Hx of cataract surgery (Resolved ~2004) Hx of coronary artery bypass surgery (Resolved 10/2006) S/P bilateral below knee amputation (Resolved Unknown) Family History Father Age: 83 Heart disease ETOH abuse Mother Age: 91 Heart disease Alzheimer's dementia without behavioral disturbance, Alzheimer's disease of unspecified onset Social History household members: spouse Smoking Status: Never smoker alcohol intake: never substance use type: does not use Family History Father Age: 83 Heart disease ETOH abuse Mother Age: 91 Heart disease Alzheimer's dementia without behavioral disturbance, Alzheimer's disease of unspecified onset Social History household members: spouse Smoking Status: Never smoker alcohol intake: never substance use type: does not use Exam Narrative Exam Narrative: GENERAL: 73-year-old male appears older than stated age, he is unwell appearing, becomes weak and SOB with minimal exertion HEAD: Atraumatic. Normocephalic. No temporal or scalp tenderness. EYES: Pupils equal round and reactive. Extraocular motions intact. No scleral icterus. No injection or drainage. ENT: Dry membranes. Nose without bleeding, purulent drainage or septal hematoma. Throat without erythema, tonsillar hypertrophy or exudate. Uvula midline. Airway patent. NECK: Trachea midline. No JVD or lymphadenopathy. Supple, nontender, no meningeal signs. CARDIOVASCULAR: Irregular rate and rhythm without murmurs, gallops, or rubs. RESPIRATORY: Clear to auscultation. Breath sounds equal bilaterally. No wheezes, rales, or rhonchi. GASTROINTESTINAL: Abdomen soft, non-tender, nondistended. No hepato- splenomegaly, or palpable masses. No guarding. RECTAL: mildly heme positive. No pain. EXTREMITIES: No clubbing, cyanosis, or edema. B/L amputee BACK: Nontender without deformity or crepitance. No flank tenderness. NEURO: AOx3. SKIN: No rash or erythema. Initial Vital Signs Initial Vital Signs: Vital Signs Temperature 99.2 F 02/15/19 18:15 Pulse Rate 159 H 02/15/19 18:15 Respiratory Rate 21 02/15/19 18:15 Blood Pressure 129/101 H 04/01/19 18:15 Pulse Oximetry 93 02/15/19 18:15 Course Orders Ordered: ED Orders 02/15/19 18:19 EKG-12 Lead Stat 02/15/19 18:26 XR chest 2V Stat 02/15/19 18:40 Complete Blood Count AUTO DIFF Stat Comprehensive Metabolic Panel Stat Hemoglobin A1C % Routine Lactate (Lactic Acid) Stat Magnesium Stat PT [Prothrombin Time INR] Stat PTT [Partial Thromboplastin Time] Stat Troponin I Stat 02/15/19 18:43 Procalcitonin Urgent Type and Screen Stat 02/15/19 21:31 Consult to Dietitian, Adult Routine 02/15/19 21:32 Consult to Physical Therapy Evaluate & Treat 02/15/19 21:33 Consult to Discharge Planning Routine 02/15/19 22:00 MRSA PCR Urgent Respiratory Panel (Film Array) Urgent 02/15/19 22:59 TSH w/ Reflex to FT4 Routine Troponin I Urgent 02/16/19 Basic Metabolic Panel Routine Complete Blood Count AUTO DIFF Routine Procalcitonin Routine Troponin I Routine 02/16/19 00:15 Urinalysis Sreen (Dip Only) Routine Acetaminophen (Tylenol) 650 mg PO Q6HR PRN PRN Reason: As Needed for Fever/Mild Pain Last Admin: 02/16/19 01:01 Dose: 650 mg Dextrose (D50w) 25 gm IV PRN PRN; Protocol PRN Reason: Hypoglycemia Gabapentin (Neurontin) 600 mg PO BID VICK Diltiazem HCl 125 mg/ Dextrose 125 mls @ 5 mls/hr IV TITRATE VICK; Protocol Last Titration: 02/16/19 01:32 Dose: 2.5 mg/hr, 2.5 mls/hr Titration: 02/16/19 00:15 Dose: 5 mg/hr, 5 mls/hr Titration: 02/15/19 23:34 Dose: 10 mg/hr, 10 mls/hr Titration: 02/15/19 22:14 Dose: 15 mg/hr, 15 mls/hr Titration: 02/15/19 21:45 Dose: 0 mg/hr, 0 mls/hr Titration: 02/15/19 19:53 Dose: 10 mg/hr, 10 mls/hr Admin: 02/15/19 19:13 Dose: 5 mg/hr, 5 mls/hr Pantoprazole Sodium 80 mg/ (Sodium Chloride) 100 mls @ 10 mls/hr IV NOW ONE Stop: 02/16/19 04:47 Last Infusion: 02/15/19 19:55 Dose: 0 mls/hr Infusion: 02/15/19 19:29 Dose: 400 mls/hr Admin: 02/15/19 19:14 Dose: 10 mls/hr Sodium Chloride (Normal Saline 0.9%) 1,000 mls @ 125 mls/hr IV CONT VICK Last Admin: 02/15/19 22:20 Dose: 125 mls/hr Azithromycin 500 mg/ Dextrose 250 mls @ 250 mls/hr IV Q24H VICK Stop: 02/17/19 23:01 Last Infusion: 02/16/19 01:32 Dose: 250 mls/hr Admin: 02/16/19 00:10 Dose: 250 mls/hr Ceftriaxone Sodium/Dextrose (Rocephin) 2 gm in 50 mls @ 100 mls/hr IV Q24H [facility] [place] Insulin Aspart (Novolog Flexpen) 0 unit SUBCUT ACHS [facility]; Protocol Last Admin: 02/15/19 22:24 Dose: 7 unit Insulin Aspart (Novolog Flexpen) 3 unit SUBCUT AC [facility] [place] Last Admin: 02/15/19 23:28 Dose: 3 unit Insulin Glargine (Lantus Solostar (Pen)) 57 unit SUBCUT BEDTIME [facility] [place] Last Admin: 02/15/19 23:05 Dose: 57 unit Levothyroxine Sodium (Synthroid) 75 mcg PO 0600 [facility] [place] Levothyroxine Sodium (Synthroid) 100 mcg PO 0600 [facility] [place] Losartan Potassium (Cozaar) 25 mg PO DAILY [facility] [place] Metoprolol Tartrate (Lopressor) 100 mg PO BID [facility] [place] Last Admin: 02/15/19 22:23 Dose: 100 mg Pantoprazole Sodium (Protonix) 40 mg IV DAILY [facility] [place] Tamsulosin HCl (Flomax) 0.4 mg PO BEDTIME [facility] [place] Discontinued Medications Digoxin (Lanoxin) 250 mcg IV NOW ONE Stop: 02/15/19 20:22 Last Admin: 02/15/19 20:50 Dose: 250 mcg Diltiazem HCl (Cardizem) 10 mg IV NOW ONE Stop: 02/15/19 18:49 Last Admin: 02/15/19 19:08 Dose: 10 mg Sodium Chloride (Normal Saline 0.9%) 1,000 mls @ 1,000 mls/hr IV BOLUS ONE Stop: 02/15/19 21:21 Last Infusion: 02/15/19 21:40 Dose: 0 mls/hr Admin: 02/15/19 20:50 Dose: 1,000 mls/hr Magnesium Sulfate (Magnesium Sulfate) 2 gm in 50 mls @ 25 mls/hr IV NOW ONE Stop: 02/16/19 00:54 Last Infusion: 02/16/19 01:55 Dose: 25 mls/hr Admin: 02/15/19 23:50 Dose: 25 mls/hr Ceftriaxone Sodium/Dextrose (Rocephin) 2 gm in 50 mls @ 100 mls/hr IV Q24H [facility]ICK Ceftriaxone Sodium 2,000 mg/ (Sodium Chloride) 100 mls @ 200 mls/hr IV Q24H [facility]ICK Ceftriaxone Sodium 2,000 mg/ (Sodium Chloride) 100 mls @ 200 mls/hr IV NOW ONE Stop: 02/16/19 00:44 Last Admin: 02/16/19 01:36 Dose: 200 mls/hr Reevaluation(s) Reevaluation #1: minimal change after dilt/dilt drip. Dig added. Patient is not anticoagulated, doesn't know time of onset and is not a good candidate for procedural sedation/cardioversion Consultations Consultation #1: hospitalist is happy to accept and will see patient in the ED Vital Signs - 8 hr 02/15/19 19:08 02/15/19 19:10 02/15/19 19:16 Temperature Pulse Rate 162 H 142 H 153 H Respiratory Rate 23 22 Blood Pressure 158/128 H Blood Pressure [Left Arm] 146/61 H 125/60 Pulse Oximetry 92 93 02/15/19 19:20 02/15/19 19:25 02/15/19 19:30 Temperature Pulse Rate 150 H 149 H 151 H Respiratory Rate 23 23 22 Blood Pressure Blood Pressure [Left Arm] 123/97 H 135/66 144/77 H Pulse Oximetry 92 93 92 02/15/19 19:35 02/15/19 19:40 02/15/19 19:45 Temperature Pulse Rate 158 H 157 H 158 H Respiratory Rate 26 H 23 21 Blood Pressure Blood Pressure [Left Arm] 126/72 133/102 H 136/103 H Pulse Oximetry 93 93 02/15/19 19:50 02/15/19 19:55 02/15/19 20:05 Temperature Pulse Rate 159 H 158 H 152 H Respiratory Rate 22 24 25 H Blood Pressure Blood Pressure [Left Arm] 135/73 131/71 124/76 Pulse Oximetry 93 93 91 02/15/19 20:10 02/15/19 20:20 02/15/19 20:30 Temperature Pulse Rate 156 H 158 H 167 H Respiratory Rate 24 22 22 Blood Pressure Blood Pressure [Left Arm] 128/69 113/72 121/86 Pulse Oximetry 93 02/15/19 20:35 02/15/19 20:40 02/15/19 20:45 Temperature Pulse Rate 165 H 161 H 157 H Respiratory Rate 20 20 21 Blood Pressure Blood Pressure [Left Arm] 131/70 146/75 H 128/59 L Pulse Oximetry 93 94 94 02/15/19 20:50 02/15/19 20:55 02/15/19 21:00 Temperature Pulse Rate 166 H 171 H 157 H Respiratory Rate 28 H 20 Blood Pressure 117/69 Blood Pressure [Left Arm] 136/75 134/77 Pulse Oximetry 95 94 02/15/19 21:05 02/15/19 21:10 02/15/19 21:15 Temperature Pulse Rate 156 H 155 H 151 H Respiratory Rate 20 22 25 H Blood Pressure Blood Pressure [Left Arm] 129/73 117/67 138/85 Pulse Oximetry 93 92 93 02/15/19 21:20 02/15/19 21:25 02/15/19 21:30 Temperature Pulse Rate 145 H 146 H 148 H Respiratory Rate 21 23 23 Blood Pressure Blood Pressure [Left Arm] 112/63 129/62 119/72 Pulse Oximetry 92 93 93 02/15/19 21:45 02/15/19 21:52 02/15/19 23:00 Temperature 99.6 F Pulse Rate 144 H 140 H 86 Respiratory Rate 22 18 Blood Pressure 134/53 L 131/70 Blood Pressure [Left Arm] 115/73 Pulse Oximetry 94 95 02/15/19 23:17 02/15/19 23:33 02/16/19 00:02 Temperature 99.1 F Pulse Rate 84 78 Respiratory Rate 27 H Blood Pressure 139/68 126/70 Blood Pressure [Left Arm] Pulse Oximetry 94 02/16/19 00:15 02/16/19 01:10 02/16/19 02:01 Temperature Pulse Rate 78 70 74 Respiratory Rate 23 20 26 H Blood Pressure 147/54 H 127/57 L 126/48 L Blood Pressure [Left Arm] Pulse Oximetry 93 92 92 MDM - Dizziness Lab Data Result diagrams: 02/15/19 18:40 02/15/19 18:40 Lab Results 02/15/19 02/15/19 02/15/19 Range/Units 18:40 18:40 18:40 WBC 6.0 (4.5-11.0) X10^3/uL RBC 4.14 L (4.5-5.9) X10^6/uL Hgb 11.6 L (13.5-17.5) g/dL Hct 36.2 L (41-53) % MCV 87.4 (80-100) fL MCH 28.1 (26-34) PG MCHC 32.1 (30-36) % RDW 13.6 (11.6-14.8) % Plt Count 178 (150-400) X10^3/uL Neut % (Auto) 73.3 (50-75) % Lymph % (Auto) 15.1 L (25-40) % [place] % (Auto) 10.8 (3-14) % Eos % (Auto) 0.4 L (2-4) % Baso % (Auto) 0.4 (0-2) % Neut # (Auto) 4400 (6690-6367) /uL Lymph # (Auto) 900 L (4039-5240) /uL [place] # (Auto) 600 (0-900) /uL Eos # (Auto) 0 (0-450) /uL Baso # (Auto) 0 (0-100) /uL PT (10.1-12.7) SECONDS INR (0.9-1.3) APTT (26.4-36.2) SECONDS Sodium 133 L (137-145) mmol/L Potassium 4.4 (3.4-5.1) mmol/L Chloride 94 L (98-107) mmol/L Carbon Dioxide 22 (22-32) mmol/L BUN 15 (9-20) mg/dL Creatinine 0.70 (0.66-1.25) mg/dL Estimated GFR > 60.0 (>60) mL/min BUN/Creatinine Ratio 21.4 (6-22) Glucose 324 H (80-110) mg/dL Hemoglobin A1c (4.0-6.0) % Lactate 1.4 (0.7-2.1) mmol/L Calcium 8.9 (8.4-10.2) mg/dL Magnesium 1.5 L (1.6-2.3) mg/dL Total Bilirubin 0.8 (0.2-1.3) mg/dL AST 26 (17-59) IU/L ALT 35 (21-72) IU/L Alkaline Phosphatase 139 H (38-126) U/L Troponin I (0.01-0.034) ng/mL Total Protein 6.6 (6.3-8.2) g/dL Albumin 3.7 (3.5-5.0) g/dL Globulin 2.9 (1.7-4.1) g/dL Albumin/Globulin Ratio 1.3 (1.0-2.8) Procalcitonin (<0.5) ng/mL TSH (0.47-4.68) uIU/mL Nasal Screen MRSA (PCR) (Negative) Chlamy pneumoniae PCR (Not Detect) Adenovirus (PCR) (Not Detect) B.parapertussis DNA PCR (Not Detect) Coronavirus OC43 (PCR) (Not Detect) Coronavirus HKU1 (PCR) (Not Detect) Coronavirus 229E (PCR) (Not Detect) Coronavirus NL63 (PCR) (Not Detect) Human Metapneumovir PCR (Not Detect) Influenza Type A (PCR) (Not Detect) Influenza Type B (PCR) (Not Detect) M. pneumoniae (PCR) (Not Detect) Parainfluenza 1 (PCR) (Not Detect) Parainfluenza 2 (PCR) (Not Detect) Parainfluenza 3 (PCR) (Not Detect) Parainfluenza 4 (PCR) (Not Detect) RSV (PCR) (Not Detect) Entero/Rhino (PCR) (Not Detect) Blood Type Antibody Screen 02/15/19 02/15/19 02/15/19 Range/Units 18:40 18:40 18:40 WBC (4.5-11.0) X10^3/uL RBC (4.5-5.9) X10^6/uL Hgb (13.5-17.5) g/dL Hct (41-53) % MCV (80-100) fL MCH (26-34) PG MCHC (30-36) % RDW (11.6-14.8) % Plt Count (150-400) X10^3/uL Neut % (Auto) (50-75) % Lymph % (Auto) (25-40) % [place] % (Auto) (3-14) % Eos % (Auto) (2-4) % Baso % (Auto) (0-2) % Neut # (Auto) (6548-0117) /uL Lymph # (Auto) (8463-5812) /uL [place] # (Auto) (0-900) /uL Eos # (Auto) (0-450) /uL Baso # (Auto) (0-100) /uL PT 13.7 H (10.1-12.7) SECONDS INR 1.2 (0.9-1.3) APTT 27 D (26.4-36.2) SECONDS Sodium (137-145) mmol/L Potassium (3.4-5.1) mmol/L Chloride (98-107) mmol/L Carbon Dioxide (22-32) mmol/L BUN (9-20) mg/dL Creatinine (0.66-1.25) mg/dL Estimated GFR (>60) mL/min BUN/Creatinine Ratio (6-22) Glucose (80-110) mg/dL Hemoglobin A1c 8.7 H (4.0-6.0) % Lactate (0.7-2.1) mmol/L Calcium (8.4-10.2) mg/dL Magnesium (1.6-2.3) mg/dL Total Bilirubin (0.2-1.3) mg/dL AST (17-59) IU/L ALT (21-72) IU/L Alkaline Phosphatase (38-126) U/L Troponin I 0.018 (0.01-0.034) ng/mL Total Protein (6.3-8.2) g/dL Albumin (3.5-5.0) g/dL Globulin (1.7-4.1) g/dL Albumin/Globulin Ratio (1.0-2.8) Procalcitonin (<0.5) ng/mL TSH (0.47-4.68) uIU/mL Nasal Screen MRSA (PCR) (Negative) Chlamy pneumoniae PCR (Not Detect) Adenovirus (PCR) (Not Detect) B.parapertussis DNA PCR (Not Detect) Coronavirus OC43 (PCR) (Not Detect) Coronavirus HKU1 (PCR) (Not Detect) Coronavirus 229E (PCR) (Not Detect) Coronavirus NL63 (PCR) (Not Detect) Human Metapneumovir PCR (Not Detect) Influenza Type A (PCR) (Not Detect) Influenza Type B (PCR) (Not Detect) M. pneumoniae (PCR) (Not Detect) Parainfluenza 1 (PCR) (Not Detect) Parainfluenza 2 (PCR) (Not Detect) Parainfluenza 3 (PCR) (Not Detect) Parainfluenza 4 (PCR) (Not Detect) RSV (PCR) (Not Detect) Entero/Rhino (PCR) (Not Detect) Blood Type Antibody Screen 02/15/19 02/15/19 02/15/19 Range/Units 18:43 18:43 22:00 WBC (4.5-11.0) X10^3/uL RBC (4.5-5.9) X10^6/uL Hgb (13.5-17.5) g/dL Hct (41-53) % MCV (80-100) fL MCH (26-34) PG MCHC (30-36) % RDW (11.6-14.8) % Plt Count (150-400) X10^3/uL Neut % (Auto) (50-75) % Lymph % (Auto) (25-40) % [place] % (Auto) (3-14) % Eos % (Auto) (2-4) % Baso % (Auto) (0-2) % Neut # (Auto) (6862-4467) /uL Lymph # (Auto) (3411-7582) /uL [place] # (Auto) (0-900) /uL Eos # (Auto) (0-450) /uL Baso # (Auto) (0-100) /uL PT (10.1-12.7) SECONDS INR (0.9-1.3) APTT (26.4-36.2) SECONDS Sodium (137-145) mmol/L Potassium (3.4-5.1) mmol/L Chloride (98-107) mmol/L Carbon Dioxide (22-32) mmol/L BUN (9-20) mg/dL Creatinine (0.66-1.25) mg/dL Estimated GFR (>60) mL/min BUN/Creatinine Ratio (6-22) Glucose (80-110) mg/dL Hemoglobin A1c (4.0-6.0) % Lactate (0.7-2.1) mmol/L Calcium (8.4-10.2) mg/dL Magnesium (1.6-2.3) mg/dL Total Bilirubin (0.2-1.3) mg/dL AST (17-59) IU/L ALT (21-72) IU/L Alkaline Phosphatase (38-126) U/L Troponin I (0.01-0.034) ng/mL Total Protein (6.3-8.2) g/dL Albumin (3.5-5.0) g/dL Globulin (1.7-4.1) g/dL Albumin/Globulin Ratio (1.0-2.8) Procalcitonin 0.11 (<0.5) ng/mL TSH (0.47-4.68) uIU/mL Nasal Screen MRSA (PCR) (Negative) Chlamy pneumoniae PCR Not detected (Not Detect) Adenovirus (PCR) Not detected (Not Detect) B.parapertussis DNA PCR Not detected (Not Detect) Coronavirus OC43 (PCR) Not detected (Not Detect) Coronavirus HKU1 (PCR) Not detected (Not Detect) Coronavirus 229E (PCR) Not detected (Not Detect) Coronavirus NL63 (PCR) Not detected (Not Detect) Human Metapneumovir PCR Detected H (Not Detect) Influenza Type A (PCR) Not detected (Not Detect) Influenza Type B (PCR) Not detected (Not Detect) M. pneumoniae (PCR) Not detected (Not Detect) Parainfluenza 1 (PCR) Not detected (Not Detect) Parainfluenza 2 (PCR) Not detected (Not Detect) Parainfluenza 3 (PCR) Not detected (Not Detect) Parainfluenza 4 (PCR) Not detected (Not Detect) RSV (PCR) Not detected (Not Detect) Entero/Rhino (PCR) Not detected (Not Detect) Blood Type O Positive Antibody Screen Negative 02/15/19 02/15/19 02/15/19 Range/Units 22:00 22:59 22:59 WBC (4.5-11.0) X10^3/uL RBC (4.5-5.9) X10^6/uL Hgb (13.5-17.5) g/dL Hct (41-53) % MCV (80-100) fL MCH (26-34) PG MCHC (30-36) % RDW (11.6-14.8) % Plt Count (150-400) X10^3/uL Neut % (Auto) (50-75) % Lymph % (Auto) (25-40) % [place] % (Auto) (3-14) % Eos % (Auto) (2-4) % Baso % (Auto) (0-2) % Neut # (Auto) (9134-4023) /uL Lymph # (Auto) (8536-1162) /uL [place] # (Auto) (0-900) /uL Eos # (Auto) (0-450) /uL Baso # (Auto) (0-100) /uL PT (10.1-12.7) SECONDS INR (0.9-1.3) APTT (26.4-36.2) SECONDS Sodium (137-145) mmol/L Potassium (3.4-5.1) mmol/L Chloride (98-107) mmol/L Carbon Dioxide (22-32) mmol/L BUN (9-20) mg/dL Creatinine (0.66-1.25) mg/dL Estimated GFR (>60) mL/min BUN/Creatinine Ratio (6-22) Glucose (80-110) mg/dL Hemoglobin A1c (4.0-6.0) % Lactate (0.7-2.1) mmol/L Calcium (8.4-10.2) mg/dL Magnesium (1.6-2.3) mg/dL Total Bilirubin (0.2-1.3) mg/dL AST (17-59) IU/L ALT (21-72) IU/L Alkaline Phosphatase (38-126) U/L Troponin I 0.013 (0.01-0.034) ng/mL Total Protein (6.3-8.2) g/dL Albumin (3.5-5.0) g/dL Globulin (1.7-4.1) g/dL Albumin/Globulin Ratio (1.0-2.8) Procalcitonin (<0.5) ng/mL TSH 2.65 (0.47-4.68) uIU/mL Nasal Screen MRSA (PCR) Negative for mrsa (Negative) Chlamy pneumoniae PCR (Not Detect) Adenovirus (PCR) (Not Detect) B.parapertussis DNA PCR (Not Detect) Coronavirus OC43 (PCR) (Not Detect) Coronavirus HKU1 (PCR) (Not Detect) Coronavirus 229E (PCR) (Not Detect) Coronavirus NL63 (PCR) (Not Detect) Human Metapneumovir PCR (Not Detect) Influenza Type A (PCR) (Not Detect) Influenza Type B (PCR) (Not Detect) M. pneumoniae (PCR) (Not Detect) Parainfluenza 1 (PCR) (Not Detect) Parainfluenza 2 (PCR) (Not Detect) Parainfluenza 3 (PCR) (Not Detect) Parainfluenza 4 (PCR) (Not Detect) RSV (PCR) (Not Detect) Entero/Rhino (PCR) (Not Detect) Blood Type Antibody Screen Point of Care Testing Glucose POC 427 Discharge Plan Departure Patient Disposition: Admitted As Inpatient Clinical Impression: Atrial fibrillation with rapid ventricular response, Gastrointestinal hemorrhage with melena Discharge Date/Time: 02/15/19 21:45 Interventions: ED Discharge Assessment Last Done: 02/15/19 21:45 Admit Date/Time: 02/15/19 20:31 Admit Provider: Maverick Hughes
[2019-02-15] MEDS: dilTIAZem 125 MG in DEXTROSE 5 % IN WATER 100 ML IV (19:13)
[2019-02-15] MEDS: PANTOPRAZOLE 80 MG in SODIUM CHLORIDE 0.9% 100 ML 10 ML IV (19:14)
[2019-02-15 19:17] LABS: Troponin I 0.018 ng/mL (0.01-0.034)
[2019-02-15] MEDS: DIGOXIN 500 MCG/2 ML AMPUL 250 MCG IV (20:50)
[2019-02-15] MEDS: SODIUM CHLORIDE 0.9% 1,000 ML 1000 ML IV (20:50)
--- NOTE | 2019-02-15 22:03 | P.HP_ITS ---
History of Present Illness Date Patient Seen: 02/15/19 Time Patient Seen: 21:03 Chief complaint: dizziness Narrative: Tulio Yi is a 73-year-old male patient with a history of coronary artery disease, prior OK status post CABG, atrial fibrillation, carotid artery disease, peripheral vascular disease, diabetes, hypertension, hyperlipidemia, hypothyroidism and bilateral [id number] amputations. The patient states that he has not felt well for a year however he has had marked increased weakness over the last week and called EMS today late to weakness and a fall. The patient additionally reports poor appetite, intermittently productive cough with nasal congestion, nausea and epigastric discomfort. The patient also discloses passing black stools and has been having occasional dizziness. Upon arrival of EMS the patient was found to be in a rapid atrial fibrillation in 150s to 160s. The patient denies chest pain but has been having episodes of shortness of breath that he describes as panic attacks and air hunger. Reports no fevers or chills, no headaches or visual changes and no sore throat. Patient has been nauseated but has not thrown up and no reports of hematemesis. Patient previously was on aspirin but ran out 6 days ago and has not been taking it since. He does take Nexium daily. He is an insulin-dependent diabetic however he indicates that he has not been using Lantus. He is taking insulin 20 units 1 time today for elevated sugar. The patient has bilateral lower extremity below the knee amputations indicates related to peripheral vascular disease secondary to diabetes. Reports no complaints of phantom pain. Upon arrival in the ER at 6:45 p.m. the patient had a temperature of 99.2?, heart rate of 160, blood pressure 149/100, a respiratory rate of 25 and 92% on room air. His chest x-ray is concerning for right lower lobe pneumonia and his EKG reveals a rapid atrial fibrillation at 153 with an incomplete right bundle branch block and no ectopy, ST or T-wave changes. His troponin was 0.018 and he had a lactate 1.4. Does have elevated INR 1.2 on no anticoagulation. His hemoglobin is 11.6 with hematocrit of 36.2. Remainder of his chemistries are within normal range except for glucose at 324. Patient History Medical History Hx of drug abuse (Acute) Myocardial infarct (Acute 10/17/06) Atrial fibrillation (Chronic Unknown) Carotid artery disease (Chronic Unknown) Coronary artery disease (Chronic Unknown) Diabetes (Chronic Unknown) Erectile dysfunction (Chronic Unknown) GERD (gastroesophageal reflux disease) (Chronic Unknown) Hyperlipemia (Chronic Unknown) Hypertension (Chronic Unknown) Hypothyroidism (Chronic Unknown) Obstructive sleep apnea (Chronic Unknown) Peripheral vascular disease (Chronic Unknown) Chickenpox (Resolved Unknown) Hepatitis C (Resolved Unknown) Measles (Resolved Unknown) Surgical History History of penile implant (Acute) History of open reduction and internal fixation (ORIF) procedure (Resolved 09/2010) Hx of cataract surgery (Resolved ~2004) Hx of coronary artery bypass surgery (Resolved 10/2006) S/P bilateral below knee amputation (Resolved Unknown) Family History Father Age: 83 Heart disease ETOH abuse Mother Age: 91 Heart disease Alzheimer's dementia without behavioral disturbance, Alzheimer's disease of unspecified onset Social History Smoking Status: Never smoker alcohol intake: never substance use type: does not use Family & Social History Tobacco & Substance use: Smoking Status Never smoker alcohol intake never alcohol intake frequency 0-2 drinks per day Substance Use Type does not use Comment: The patient lives in a single family home with his to whom he has been for 44 years. His mother and father both had cardiovascular disease, his father alcohol abuse and his mother Alzheimer's dementia. Smoking: Patient torso is 1 pack per day smoker described as often on for 10 years and quit 45 years ago. Alcohol: Previously would drink occasionally but no longer consumes alcohol. Substance use: Patient admits to polysubstance abuse including heroin, marijuana, last use was 4 years ago. Advanced directives: Discussed with the patient who wishes to be a DO NOT RESUSCITATE. He does states his Zeina and daughter Karthik as surrogate decisionmakers. Meds Home Medications Medication Instructions Recorded Confirmed Type furosemide 20 mg PO QDAY #30 tabs 09/18/17 02/15/19 Rx levothyroxine 175 mcg tablet 175 mcg PO QAM #30 tab 08/11/18 02/15/19 Rx metoprolol tartrate 100 mg tablet 100 mg PO BID #180 tab 08/11/18 02/15/19 Rx tamsulosin 0.4 mg capsule 0.4 mg PO BEDTIME #30 cap 08/11/18 02/15/19 Rx aspirin 2 tab PO DAILY 09/16/18 02/15/19 History docusate sodium [Col-Rite] 250 mg PO DAILY PRN 09/16/18 02/15/19 History insulin aspart U- 100 100 unit/mL 20 unit SUBCUT QAC #2 vial 09/23/18 02/15/19 Rx subcutaneous solution esomeprazole magnesium 40 mg 40 mg PO Q DAY #90 cap 11/12/18 02/15/19 Rx capsule,delayed release Syringes: 1cc Insulin Syringes #100 each 11/19/18 02/15/19 Rx with [place] Glucose: Test Strips #100 each 11/30/18 02/15/19 Rx losartan 25 mg tablet 25 mg PO QDAY #90 tab 02/10/19 02/15/19 Rx Lantus U-100 Insulin 57 units SUBCUT DAILY 02/15/19 02/15/19 History nystatin 1 applictn TOP BID PRN 02/15/19 02/15/19 History Allergies Allergy/AdvReac Type Severity Reaction Status Date / Time adhesive tape [ADHESIVE TAPE] AdvReac Mild PATIENT Verified 02/15/19 18:15 STATES IT PEELS HIS SKIN OFF lisinopril [LISINOPRIL] AdvReac Mild COUGH Verified 02/15/19 18:15 prochlorperazine AdvReac Unknown Verified 02/15/19 18:15 [PROCHLORPERAZINE] shellfish derived AdvReac Unknown Verified 02/15/19 18:15 [SHELLFISH DERIVED] Review of Systems Review of Systems All systems reviewed & are unremarkable except as noted in HPI and below Exam Vital Signs (past 8 hours): - 02/15/19 18:15 02/15/19 18:45 02/15/19 19:08 Temperature 99.2 F Pulse Rate 159 H 160 H 162 H Respiratory Rate 21 25 H Blood Pressure 129/101 H 158/128 H Blood Pressure [Left Arm] 149/100 H Pulse Oximetry 93 02/15/19 19:10 02/15/19 19:16 02/15/19 19:20 Temperature Pulse Rate 142 H 153 H 150 H Respiratory Rate 23 22 23 Blood Pressure Blood Pressure [Left Arm] 146/61 H 125/60 123/97 H Pulse Oximetry 92 93 92 02/15/19 19:25 02/15/19 19:30 02/15/19 19:35 Temperature Pulse Rate 149 H 151 H 158 H Respiratory Rate 23 22 26 H Blood Pressure Blood Pressure [Left Arm] 135/66 144/77 H 126/72 Pulse Oximetry 93 92 02/15/19 19:40 02/15/19 19:45 02/15/19 19:50 Temperature Pulse Rate 157 H 158 H 159 H Respiratory Rate 23 21 22 Blood Pressure Blood Pressure [Left Arm] 133/102 H 136/103 H 135/73 Pulse Oximetry 93 93 93 02/15/19 19:55 02/15/19 20:05 02/15/19 20:10 Temperature Pulse Rate 158 H 152 H 156 H Respiratory Rate 24 25 H 24 Blood Pressure Blood Pressure [Left Arm] 131/71 124/76 128/69 Pulse Oximetry 93 91 93 02/15/19 20:20 02/15/19 20:30 02/15/19 20:35 Temperature Pulse Rate 158 H 167 H 165 H Respiratory Rate 22 22 20 Blood Pressure Blood Pressure [Left Arm] 113/72 121/86 131/70 Pulse Oximetry 93 02/15/19 20:40 02/15/19 20:45 02/15/19 20:50 Temperature Pulse Rate 161 H 157 H 166 H Respiratory Rate 20 21 Blood Pressure 117/69 Blood Pressure [Left Arm] 146/75 H 128/59 L Pulse Oximetry 94 94 02/15/19 20:55 02/15/19 21:00 02/15/19 21:05 Temperature Pulse Rate 171 H 157 H 156 H Respiratory Rate 28 H 20 20 Blood Pressure Blood Pressure [Left Arm] 136/75 134/77 129/73 Pulse Oximetry 95 94 93 Oxygen Delivery Method Room Air Narrative Exam Narrative: GENERAL APPEARANCE: well developed, morbidly obese with a BMI of 40.7 and is ill-appearing HEAD: Normocephalic, atraumatic, no scalp lesions. EYES: pupils equal, round, reactive to light and accommodation, sclera non- icteric, extraocular movement intact without nystagmus. EARS: normal external structures, no ear pain NOSE: sinuses non tender to percussion, no rhinorrhea ORAL CAVITY: mucosa is dry without lesions or exudate, palate normal, tongue in midline. THROAT: normal, erythemic appearing, no exudate, pharynx normal, uvula midline. NECK/THYROID: neck supple, no jugular venous distention, no carotid bruit, no thyromegaly, trachea midline. LYMPH NODES: no cervical or supraclavicular lymphadenopathy. SKIN: warm and dry, no suspicious lesions, no rashes, good turgor. HEART: Tachycardic rate with irregularly irregular rhythm, S1-S2 without murmur, rubs, gallops, brisk capillary refill, no edema LUNGS: clear to auscultation bilaterally, no coarseness crackles or wheezing, dry nonproductive cough CHEST: Well-healed median sternotomy surgical scar, symmetrical movement, no accessory muscle use, no pain to AP and lateral compression. ABDOMEN: Soft, round, epigastric pain on palpation, no other abdominal tenderness on palpation, no guarding or peritoneal signs, no organomegaly, no flank or suprapubic tenderness BACK: Normal curvature, nontender to palpation, no CVA tenderness on percussion EXTREMITIES: Status post bilateral lower extremity amputations, stump socks in place, moves all extremities, strength is 5/5 and symmetrical, well perfused. NEUROLOGIC: AAO x4, no focal neurologic deficits, cranial nerves II-XII grossly intact , motor strength normal upper and lower extremities, sensory exam intact to light touch, hearing grossly normal to speech. PSYCH: alert, cognitive function intact, good eye contact, stable mood with congruent affect Objective Labs Result Diagrams: 02/15/19 18:40 02/15/19 18:40 Labs: Laboratory Results - last 24 hr 02/15/19 02/15/19 02/15/19 18:40 18:40 18:40 WBC 6.0 RBC 4.14 L Hgb 11.6 L Hct 36.2 L MCV 87.4 MCH 28.1 MCHC 32.1 RDW 13.6 Plt Count 178 Neut % (Auto) 73.3 Lymph % (Auto) 15.1 L [place] % (Auto) 10.8 Eos % (Auto) 0.4 L Baso % (Auto) 0.4 Neut # (Auto) 4400 Lymph # (Auto) 900 L [place] # (Auto) 600 Eos # (Auto) 0 Baso # (Auto) 0 PT INR APTT Sodium 133 L Potassium 4.4 Chloride 94 L Carbon Dioxide 22 BUN 15 Creatinine 0.70 Estimated GFR > 60.0 BUN/Creatinine Ratio 21.4 Glucose 324 H Lactate 1.4 Calcium 8.9 Total Bilirubin 0.8 AST 26 ALT 35 Alkaline Phosphatase 139 H Troponin I Total Protein 6.6 Albumin 3.7 Globulin 2.9 Albumin/Globulin Ratio 1.3 Blood Type Antibody Screen 02/15/19 02/15/19 02/15/19 18:40 18:40 18:43 WBC RBC Hgb Hct MCV MCH MCHC RDW Plt Count Neut % (Auto) Lymph % (Auto) [place] % (Auto) Eos % (Auto) Baso % (Auto) Neut # (Auto) Lymph # (Auto) [place] # (Auto) Eos # (Auto) Baso # (Auto) PT 13.7 H INR 1.2 APTT 27 D Sodium Potassium Chloride Carbon Dioxide BUN Creatinine Estimated GFR BUN/Creatinine Ratio Glucose Lactate Calcium Total Bilirubin AST ALT Alkaline Phosphatase Troponin I 0.018 Total Protein Albumin Globulin Albumin/Globulin Ratio Blood Type O Positive Antibody Screen Negative Assessment & Plan Assessment & Plan narrative: The patient is admitted to the hospital for treatment of atrial fibrillation, uncontrolled diabetes, possible GI bleed and possible pneumonia. 1. Atrial fibrillation with RVR, present on admission, acute on chronic -patient with history of paroxysmal atrial fibrillation presenting with RVR rate of 150-160. -patient does not feel palpitations or irregularity in his heartbeat therefore has rapid atrial fibrillation of unknown duration. -the patient had been taking aspirin 162 mg up until 6 days ago when he ran out of his medication. He has been taking metoprolol 100 mg twice daily for arrhythmia management -patient has received a bolus and is currently on diltiazem infusion, has received digoxin 250 mcg. -potassium is 4.8 will add on magnesium level and treat as needed. -will obtain a troponin this evening and again in the morning. -will obtain echocardiogram 2. Insulin-dependent type 2 diabetes, uncontrolled, present on admission, chronic -patient's admission labs find the patient's glucose to be 324. -patient states he took 1 dose of 20 units of insulin today. He states he has not been taking his long-acting Lantus. -patient with bilateral BKA reportedly related to diabetes but no evidence of retinopathy or nephropathy with a BUN of 15 and creatinine is 0.7. -patient does report having had gastroparesis consistent with current findings and elevated blood sugar -will obtain hemoglobin A1c, restart Lantus 57 units at bedtime and administer 10 units of insulin now with sliding scale insulin high scale a.c. and HS 3. Possible GI bleed, present on admission, acute -patient reports melanotic stool, per ER physician guaiac is weakly positive -hemoglobin is 11.6 and hematocrit 36.2 with platelets of 178. -prior history of hepatitis C an INR of 1.2 with a PT of 37.2 -will hold anticoagulation at this time related to high risk for bleeding, has bled score of 3 placing him at high risk. -patient has received Protonix 80 mg in the ER and will receive Protonix 40 mg daily 4. Possible pneumonia, present on admission, acute -patient had respiratory rate of 25 and oxygen saturation level of 92% on room air upon arrival to the ER. -patient describes a dry nonproductive cough for 2 weeks and right basilar in filtrates on chest x-ray -will obtain a procalcitonin initiate ceftriaxone 2 g daily and azithromycin 500 mg daily for 3 days. 5. Hypothyroidism, present on admission, chronic -will continue patient's own medication of levothyroxine 175 mg daily -will obtain a TSH with reflex T4 6. Benign prostatic hypertrophy, present on admission, chronic -will continue patient's tamsulosin 0.4 mg daily The patient is admitted to critical care related to severity of symptoms and risk for complications and need for close monitoring in IV medication titration. The patient is admitted as an inpatient with expected length of stay to be greater than 2 midnights. Critical Care Time: 40 minutes Time Spent With Patient Time with patient: Greater than 35 minutes
[2019-02-15] MEDS: SODIUM CHLORIDE 0.9% 1,000 ML 125 ML IV (22:20)
[2019-02-15] MEDS: METOPROLOL IR 50 MG TABLET 100 MG PO (22:23)
[2019-02-15] MEDS: INSULIN ASPART 100 UNIT/ML INSULN PEN SUBCUT ×2 (22:24→23:28)
[2019-02-15 22:39] LABS: Hemoglobin A1C% w Est Avg Glu 8.7 % (4.0-6.0)
[2019-02-15 22:42] LABS: Magnesium 1.5 mg/dL (1.6-2.3)
--- NOTE | 2019-02-15 23:00 | PC.NURSE ---
2150 - Pt to room from ER. Transfer via slider board. Alert and oriented. Face flush, temp 99.6 degrees. Reports hx of cough, resp. panel sent per order. Pt denies pain. HR 140's, cardizem gtt titrated up to 15mg/hr. BP 134/63. Pt reports feeling generally unwell. Review home meds, however occasionally unable to recall dose. Supportive assist. Educated to room and routine. Reviewed treatment plan. Call light in reach.
[2019-02-15] MEDS: INSULIN GLARGINE 100 UNIT/ML 3ML PEN 57 UNIT SUBCUT (23:05)
[2019-02-15 23:17] LABS: Procalcitonin 0.11 ng/mL (<0.5)
[2019-02-15 23:27] LABS: Troponin I 0.013 ng/mL (0.01-0.034)
[2019-02-15] MEDS: MAGNESIUM SULFATE 2 GM/50 ML PIGGYBACK IV (23:50)
[2019-02-15 23:57] LABS: Adenovirus Not Detected (Not Detect); Bordetella pertussis Not Detected (Not Detect); Chlamydophila pneumoniae Not Detected (Not Detect); Coronavirus 229E Not Detected (Not Detect); Coronavirus HKU1 Not Detected (Not Detect); Coronavirus NL 63 Not Detected (Not Detect); Coronavirus OC43 Not Detected (Not Detect); Human Metapneumovirus Detected (Not Detect); Human Rhinovirus/Enterovirus Not Detected (Not Detect); Influenza A Not Detected (Not Detect); Influenza B Not Detected (Not Detect); Mycoplasma pneumoniae Not Detected (Not Detect); Parainfluenza Virus 1 Not Detected (Not Detect); Parainfluenza Virus 2 Not Detected (Not Detect); Parainfluenza Virus 3 Not Detected (Not Detect); Parainfluenza Virus 4 Not Detected (Not Detect); Respiratory Syncytial Virus Not Detected (Not Detect)
[2019-02-16] VITALS (9 sets, daily range): BP systolic 113–148; BP diastolic 48–68; PULSE 70–88; RESP 13–26; TEMP 36.4–37.3; O2SAT 90–96
[2019-02-16] MEDS: AZITHROMYCIN 500 MG in DEXTROSE 5% IN WATER 250 ML IV (00:10)
[2019-02-16] MEDS: ACETAMINOPHEN 325 MG TABLET 650 MG PO (01:01)
[2019-02-16 01:33] LABS: TSH w/ Reflex to FT4 2.65 uIU/mL (0.47-4.68)
[2019-02-16] MEDS: cefTRIAXone 2,000 MG in SODIUM CHLORIDE 0.9% 100 ML 200 ML IV (01:36)
[2019-02-16 05:04] LABS: Add Manual Diff / Slide Review NO; Basophils Absolute Auto 0 /uL (0-100); Basophils Percent Auto 0.5 % (0-2); Eosinophils Absolute Auto 0 /uL (0-450); Eosinophils Percent Auto 0.6 % (2-4); Hematocrit 33.3 % (41-53); Hemoglobin 11.5 g/dL (13.5-17.5); Lymphocytes Absolute Auto 1200 /uL (1100-4500); Mean Corpuscular HGB Conc 34.7 % (30-36); Mean Corpuscular Hemoglobin 29.4 PG (26-34); Mean Corpuscular Volume 84.8 fL (80-100); Monocytes Absolute Auto 800 /uL (0-900); Monocytes Percent Auto 14.6 % (3-14); Neutrophils Absolute Auto 3300 /uL (1500-7000); Neutrophils Percent Auto 62.3 % (50-75); Platelet Count 177 X10^3/uL (150-400); Red Blood Cell Count 3.93 X10^6/uL (4.5-5.9); Red Cell Distribution Width 13.8 % (11.6-14.8); White Blood Cell Count 5.3 X10^3/uL (4.5-11.0)
[2019-02-16 05:27] LABS: BUN Creatinine Ratio 23.8 (6-22); Blood Urea Nitrogen 19 mg/dL (9-20); Calcium 8.8 mg/dL (8.4-10.2); Carbon Dioxide 20 mmol/L (22-32); Chloride 98 mmol/L (98-107); Estimated Glomerular Filt Rate > 60.0 mL/min (>60); Glucose 269 mg/dL (80-110); HEMOLYSIS < 15 (0-50); Potassium 4.5 mmol/L (3.4-5.1); Sodium 132 mmol/L (137-145)
[2019-02-16 05:39] LABS: Troponin I 0.027 ng/mL (0.01-0.034)
[2019-02-16 05:45] LABS: Procalcitonin 0.11 ng/mL (<0.5)
--- NOTE | 2019-02-16 06:16 | PC.NURSE ---
Patient dozed intermittently, awake with loose non-productive cough, breath sounds initially diminished, then coarse with scattered rhonchi/ wheezes after Rocephin and Zithromycin given, SpO2 88-97% on RA, apnea noted while asleep, refuses to wear NC. Continues to be in A-fib, CVR throughout night, Diltiazem gtt titrated from 15m/hr to 2.5mg/hr. Placed in Droplet precaution, positive for Human metapneumovirus. UAC sent.
[2019-02-16 07:14] LABS: Appearance Urine UA CLEAR; Bilirubin Urine UA NEGATIVE (NEGATIVE); Color Urine UA YELLOW; Glucose Urine UA 1+ g/dL (Negative); Ketones Urine UA 3+ (NEGATIVE); Leukocyte Esterase Urine UA NEGATIVE (NEGATIVE); Nitrite Urine UA NEGATIVE (Negative); Occult Blood Urine UA TRACE-LYSED (Negative); Protein Urine UA NEGATIVE (Negative); Specific Gravity Urine UA 1.025 (1.000-1.035); Urobilinogen Urine UA 0.2 E.U./dL (0.2)
[2019-02-16] MEDS: SODIUM CHLORIDE 0.9% 1,000 ML 125 ML IV (08:42)
[2019-02-16] MEDS: INSULIN ASPART 100 UNIT/ML INSULN PEN SUBCUT ×4 (08:42→12:26)
[2019-02-16] MEDS: LEVOTHYROXINE 75 MCG TABLET PO (08:45)
[2019-02-16] MEDS: PANTOPRAZOLE 40 MG VIAL IV (08:45)
[2019-02-16] MEDS: LEVOTHYROXINE 100 MCG TABLET PO (08:46)
[2019-02-16] MEDS: GABAPENTIN 600 MG TABLET PO (08:46)
[2019-02-16] MEDS: LOSARTAN 25 MG TABLET PO (08:46)
[2019-02-16] MEDS: METOPROLOL IR 50 MG TABLET 100 MG PO (08:46)
--- NOTE | 2019-02-16 08:54 | PT.IIE ---
Current Diagnoses Paroxysmal atrial fibrillation (02/15/19) Surgical History (Last Reviewed 02/16/19 @ 02:56 by Murtaza Watson DO) History of penile implant (Acute) History of open reduction and internal fixation (ORIF) procedure (Resolved 09/2010) Hx of cataract surgery (Resolved ~2004) Hx of coronary artery bypass surgery (Resolved 10/2006) S/P bilateral below knee amputation (Resolved Unknown) Medical History (Last Reviewed 02/16/19 @ 02:56 by Murtaza Watson DO) Hx of drug abuse (Acute) Myocardial infarct (Acute 10/17/06) Atrial fibrillation (Chronic Unknown) Carotid artery disease (Chronic Unknown) Coronary artery disease (Chronic Unknown) Diabetes (Chronic Unknown) Erectile dysfunction (Chronic Unknown) GERD (gastroesophageal reflux disease) (Chronic Unknown) Hyperlipemia (Chronic Unknown) Hypertension (Chronic Unknown) Hypothyroidism (Chronic Unknown) Obstructive sleep apnea (Chronic Unknown) Peripheral vascular disease (Chronic Unknown) Chickenpox (Resolved Unknown) Hepatitis C (Resolved Unknown) Measles (Resolved Unknown) Physical Therapy Inpatient Evaluation/Re-Eval M1 PT/OT-IP Prior Functional Status Start: 02/16/19 08:45 Freq: NEEDED Status: Active Protocol: Document 02/16/19 08:45 [facility] (Rec: 02/16/19 08:54 [facility] [id number]) Medical Review Prior Functional Status Medical History Reviewed Yes Diet/Fluid Consistency Regular Communication WNL Mobility and Gait Pt amb with B prosthesis & no AD in the house and FWW outside the house. Activities of Daily Living and IADL's Indep with ADLs. Does his own cooking & cleaning Social History Household Members spouse Living Arrangements House Home Environment Standard Height Toilet Tub/Shower Home Equipment Front Wheel Walker Tub Transfer Bench Grab Bars Near Toilet Grab Bars In Shower Employment Status Retired Additional Social History Comment is unable to assist to d/ t medical issues of her own M2 PT-IP Current Condition Start: 02/16/19 08:45 Freq: NEEDED Status: Active Protocol: Document 02/16/19 08:45 [facility] (Rec: 02/16/19 08:54 [facility] [id number]) Physical Therapy Current Condition Current Condition Evaluation Date 02/16/19 Treatment Diagnosis Afib, possible PNA & GI bleed Precautions Other Precautions airborne precautions Weight Bearing Status Weight Bearing Status Full Weight Bearing M3 PT-IP Subjective Start: 02/16/19 08:45 Freq: NEEDED Status: Active Protocol: Document 02/16/19 08:45 [facility] (Rec: 02/16/19 08:54 [facility] [id number]) Subjective Physical Therapy Visit Type Type Initial Evaluation Visit Start Time 08:15 Visit Stop Time 08:43 Total Visit Minutes 28 Number of MORTGAGE LENDER Visits 0 Physical Therapy Visit Comments Patient Comments Pt reports he feels better today. Patient Goals Return home. Does not feel like he will require HH or other assistance Therapy Pain Assessment Pain When Pain Assessed After Treatment Pain Present Pain Present Pain Reported Location back Description Aching Pain Management Techniques Re-positioning M4 PT-IP Mobility and Gait Start: 02/16/19 08:45 Freq: NEEDED Status: Active Protocol: Document 02/16/19 08:45 [facility] (Rec: 02/16/19 08:54 [facility] [id number]) PT-Transfer Assessment Sit to and From Stand Sit to and from Stand Standby Assistance Use of Upper Extremities Equipment Transfer Assistive Device Front Wheeled Walker Orthotic/Prosthetic Devices or Brace: Yes Comments Mobility Comments Pt stood to ambulate Gait Assessment Gait Gait Assistance Required: Contact Guard Assist Distance (Feet) 80 Able to Maintain Weight Bearing Status Yes During Gait Assistive Devices Assistive Device Gait Belt Front Wheeled Walker Orthotic/Prosthetic Devices or Brace: Yes Gait Deviations General Gait Pattern Decreased Stride Length Flexed Trunk Factors Limiting Gait Function Factors Limiting Gait Function Decreased Activity Tolerance Decreased Strength Comments Gait Comments Pt was able to ambulate around bed 4 times and was able to participate in helping manage his cords. PT-Balance Assessment Sitting Balance and Reactions Static Sitting Balance Ability Normal Dynamic Sitting Balance Ability Normal Standing Balance and Reactions Static Standing Balance Ability Good Dynamic Standing Balance Ability Fair Device Used FWW M5 PT-IP Objective Assessments Start: 02/16/19 08:45 Freq: NEEDED Status: Active Protocol: Document 02/16/19 08:45 [facility] (Rec: 02/16/19 08:54 [facility] [id number]) Orientation Orientation/Cognition Level of Alertness Alert Strength Lower Extremity Strength Assessment Bilaterally Impaired M6 PT-IP Treatment Start: 02/16/19 08:45 Freq: NEEDED Status: Active Protocol: Document 02/16/19 08:45 [facility] (Rec: 02/16/19 08:54 [facility] [id number]) Physical Therapy Treatment Education Education Provided Safety Other Treatments Other Treatment Performed Edu to call for assistance to get up and to do seated exercises. M7 PT-IP Assessment and Plan Start: 02/16/19 08:45 Freq: NEEDED Status: Active Protocol: Document 02/16/19 08:45 [facility] (Rec: 02/16/19 08:54 [facility] [id number]) PT Summary Assessment and Plan Potential Rehabilitation Potential Excellent Status of Condition at Evaluation Evolving Summary Impairments Pain Strength Bed Mobility Transfers Gait Assessment Summary Pt presents with possible GI bleed & possible PNA to hospital last night in Afib. He is feeling better and is able to ambulate more,but is still limited in his activity. He would benefit from cont PT to advance his strength and mobility to allow him to return home safely. Goals Bed Mobility Goal Independent Transfer Goal Independent Gait Goal Independent Gait Distance 150 Other Goals up/down 2 steps with doorframe & counter hold indep Days to Meet Goals 5 Frequency of Treatment Frequency Of Treatment Once a Day Treatment Plan Physical Therapy Treatment Plan Bed Mobility Training Transfer Training Gait Training Therapeutic Exercise Balance Retraining Discharge Planning Neuromuscular Re-ed Recommendations To Nursing Amount of Assist Needed 1 Person Assist Discharge Recommendations PT Discharge Recommendations Home Outpatient PT Other Discharge Recommendations Possible OP PT for inc strength & balance
--- NOTE | 2019-02-16 12:25 | PM.DS.1 ---
History of Present Illness Date Patient Seen: 02/16/19 Chief complaint: dizziness Narrative: Tulio Yi is a 73-year-old male patient with a history of coronary artery disease, prior [place] status post CABG, atrial fibrillation, carotid artery disease, peripheral vascular disease, diabetes, hypertension, hyperlipidemia, hypothyroidism and bilateral [id number] amputations. The patient states that he has not felt well for a year however he has had marked increased weakness over the last week and called EMS today late to weakness and a fall. The patient additionally reports poor appetite, intermittently productive cough with nasal congestion, nausea and epigastric discomfort. The patient also discloses passing black stools and has been having occasional dizziness. Upon arrival of EMS the patient was found to be in a rapid atrial fibrillation in 150s to 160s. The patient denies chest pain but has been having episodes of shortness of breath that he describes as panic attacks and air hunger. Reports no fevers or chills, no headaches or visual changes and no sore throat. Patient has been nauseated but has not thrown up and no reports of hematemesis. Patient previously was on aspirin but ran out 6 days ago and has not been taking it since. He does take Nexium daily. He is an insulin-dependent diabetic however he indicates that he has not been using Lantus. He is taking insulin 20 units 1 time today for elevated sugar. The patient has bilateral lower extremity below the knee amputations indicates related to peripheral vascular disease secondary to diabetes. Reports no complaints of phantom pain. Upon arrival in the ER at 6:45 p.m. the patient had a temperature of 99.2?, heart rate of 160, blood pressure 149/100, a respiratory rate of 25 and 92% on room air. His chest x-ray is concerning for right lower lobe pneumonia and his EKG reveals a rapid atrial fibrillation at 153 with an incomplete right bundle branch block and no ectopy, ST or T-wave changes. His troponin was 0.018 and he had a lactate 1.4. Does have elevated INR 1.2 on no anticoagulation. His hemoglobin is 11.6 with hematocrit of 36.2. Remainder of his chemistries are within normal range except for glucose at 324. Discharge Providers Date of admission: 02/15/19 20:31 Discharge Date: 02/16/19 Primary care physician: Pb Montero MD Consults: 02/15/19 21:31 Consult to Dietitian, Adult Routine Comment: Reason For Exam: Morbid obesity, DM, gastroperesis 02/15/19 21:32 Consult to Physical Therapy Evaluate & Treat Comment: Bilateral BKA Physician Instructions: Evaluate and Treat 02/15/19 21:33 Consult to Discharge Planning Routine Comment: Discharge provider: Patricia Smith MD Summary Discharge Diagnosis: Paroxsymal Atrial Fibrillation with rapid ventricular response, present on admission Pneumonia, secondary to Human Metapneumovirus, present on admission TYpe 1 diabetes, on insulin poorly controlled CAD, s/p CABG Carotid artery Disease Perepheral Vascular Disease S/P bilateral BKA Hyponatremia Hypertesnion Hyperlipidemia Hypothyroidism Hospital Course: Patient was admitted to the hospital for evaluation of dizziness, rapid atrial fibrillation. Patient was found to have human metapneumovirus. He was treated with a diltiazem drip, IV digoxin and his usual metoprolol. His heart rate improved overnight. The patients breathing was back to baseline. His major complaint was cough. His blood sugars were elevated and he was treated with basal bolus insulin. The patient recovered quicker than anticipated and was deemed appropriate for discharge home. The patient will follow up with Dr. Montero next week. Exam Vital Signs (past 8 hours): - 02/16/19 06:00 02/16/19 08:25 02/16/19 12:08 Temperature 98.0 F 97.5 F L 98.4 F Pulse Rate 88 79 80 Respiratory Rate 18 20 19 Blood Pressure 133/65 148/66 H 128/62 Pulse Oximetry 90 L 95 92 Oxygen Delivery Method Nasal Cannula Oxygen Flow Rate 0 Narrative Exam Narrative: ill appearing male in no acute distress Lungs: decreased breath sounds with scattered rhonchi CV: irregularly, irregular nl Sl S2 Abd: soft/ nontender/ nondistended Ext: bilateral BKA;s Objective Labs Result Diagrams: 02/16/19 04:40 02/16/19 04:40 Labs: Laboratory Results - last 24 hr 02/15/19 02/15/19 02/15/19 18:40 18:40 18:40 WBC 6.0 RBC 4.14 L Hgb 11.6 L Hct 36.2 L MCV 87.4 MCH 28.1 MCHC 32.1 RDW 13.6 Plt Count 178 Neut % (Auto) 73.3 Lymph % (Auto) 15.1 L Ida % (Auto) 10.8 Eos % (Auto) 0.4 L Baso % (Auto) 0.4 Neut # (Auto) 4400 Lymph # (Auto) 900 L Ida # (Auto) 600 Eos # (Auto) 0 Baso # (Auto) 0 PT INR APTT Sodium 133 L Potassium 4.4 Chloride 94 L Carbon Dioxide 22 BUN 15 Creatinine 0.70 Estimated GFR > 60.0 BUN/Creatinine Ratio 21.4 Glucose 324 H Hemoglobin A1c Lactate 1.4 Calcium 8.9 Magnesium 1.5 L Total Bilirubin 0.8 AST 26 ALT 35 Alkaline Phosphatase 139 H Troponin I Total Protein 6.6 Albumin 3.7 Globulin 2.9 Albumin/Globulin Ratio 1.3 Procalcitonin TSH Urine Color Urine Appearance Urine pH Ur Specific [place] Urine Protein Urine Glucose (UA) Urine Ketones Urine Occult Blood Urine Nitrate Urine Bilirubin Urine Urobilinogen Ur Leukocyte Esterase Nasal Screen MRSA (PCR) Chlamy pneumoniae PCR Adenovirus (PCR) B.parapertussis DNA PCR Coronavirus OC43 (PCR) Coronavirus HKU1 (PCR) Coronavirus 229E (PCR) Coronavirus NL63 (PCR) Human Metapneumovir PCR Influenza Type A (PCR) Influenza Type B (PCR) M. pneumoniae (PCR) Parainfluenza 1 (PCR) Parainfluenza 2 (PCR) Parainfluenza 3 (PCR) Parainfluenza 4 (PCR) RSV (PCR) Entero/Rhino (PCR) Blood Type Antibody Screen 02/15/19 02/15/19 02/15/19 18:40 18:40 18:40 WBC RBC Hgb Hct MCV MCH MCHC RDW Plt Count Neut % (Auto) Lymph % (Auto) Ida % (Auto) Eos % (Auto) Baso % (Auto) Neut # (Auto) Lymph # (Auto) Ida # (Auto) Eos # (Auto) Baso # (Auto) PT 13.7 H INR 1.2 APTT 27 D Sodium Potassium Chloride Carbon Dioxide BUN Creatinine Estimated GFR BUN/Creatinine Ratio Glucose Hemoglobin A1c 8.7 H Lactate Calcium Magnesium Total Bilirubin AST ALT Alkaline Phosphatase Troponin I 0.018 Total Protein Albumin Globulin Albumin/Globulin Ratio Procalcitonin TSH Urine Color Urine Appearance Urine pH Ur Specific [place] Urine Protein Urine Glucose (UA) Urine Ketones Urine Occult Blood Urine Nitrate Urine Bilirubin Urine Urobilinogen Ur Leukocyte Esterase Nasal Screen MRSA (PCR) Chlamy pneumoniae PCR Adenovirus (PCR) B.parapertussis DNA PCR Coronavirus OC43 (PCR) Coronavirus HKU1 (PCR) Coronavirus 229E (PCR) Coronavirus NL63 (PCR) Human Metapneumovir PCR Influenza Type A (PCR) Influenza Type B (PCR) M. pneumoniae (PCR) Parainfluenza 1 (PCR) Parainfluenza 2 (PCR) Parainfluenza 3 (PCR) Parainfluenza 4 (PCR) RSV (PCR) Entero/Rhino (PCR) Blood Type Antibody Screen 02/15/19 02/15/19 02/15/19 18:43 18:43 22:00 WBC RBC Hgb Hct MCV MCH MCHC RDW Plt Count Neut % (Auto) Lymph % (Auto) Ida % (Auto) Eos % (Auto) Baso % (Auto) Neut # (Auto) Lymph # (Auto) Ida # (Auto) Eos # (Auto) Baso # (Auto) PT INR APTT Sodium Potassium Chloride Carbon Dioxide BUN Creatinine Estimated GFR BUN/Creatinine Ratio Glucose Hemoglobin A1c Lactate Calcium Magnesium Total Bilirubin AST ALT Alkaline Phosphatase Troponin I Total Protein Albumin Globulin Albumin/Globulin Ratio Procalcitonin 0.11 TSH Urine Color Urine Appearance Urine pH Ur Specific [place] Urine Protein Urine Glucose (UA) Urine Ketones Urine Occult Blood Urine Nitrate Urine Bilirubin Urine Urobilinogen Ur Leukocyte Esterase Nasal Screen MRSA (PCR) Chlamy pneumoniae PCR Not detected Adenovirus (PCR) Not detected B.parapertussis DNA PCR Not detected Coronavirus OC43 (PCR) Not detected Coronavirus HKU1 (PCR) Not detected Coronavirus 229E (PCR) Not detected Coronavirus NL63 (PCR) Not detected Human Metapneumovir PCR Detected H Influenza Type A (PCR) Not detected Influenza Type B (PCR) Not detected M. pneumoniae (PCR) Not detected Parainfluenza 1 (PCR) Not detected Parainfluenza 2 (PCR) Not detected Parainfluenza 3 (PCR) Not detected Parainfluenza 4 (PCR) Not detected RSV (PCR) Not detected Entero/Rhino (PCR) Not detected Blood Type O Positive Antibody Screen Negative 02/15/19 02/15/19 02/15/19 22:00 22:59 22:59 WBC RBC Hgb Hct MCV MCH MCHC RDW Plt Count Neut % (Auto) Lymph % (Auto) Ida % (Auto) Eos % (Auto) Baso % (Auto) Neut # (Auto) Lymph # (Auto) Ida # (Auto) Eos # (Auto) Baso # (Auto) PT INR APTT Sodium Potassium Chloride Carbon Dioxide BUN Creatinine Estimated GFR BUN/Creatinine Ratio Glucose Hemoglobin A1c Lactate Calcium Magnesium Total Bilirubin AST ALT Alkaline Phosphatase Troponin I 0.013 Total Protein Albumin Globulin Albumin/Globulin Ratio Procalcitonin TSH 2.65 Urine Color Urine Appearance Urine pH Ur Specific [place] Urine Protein Urine Glucose (UA) Urine Ketones Urine Occult Blood Urine Nitrate Urine Bilirubin Urine Urobilinogen Ur Leukocyte Esterase Nasal Screen MRSA (PCR) Negative for mrsa Chlamy pneumoniae PCR Adenovirus (PCR) B.parapertussis DNA PCR Coronavirus OC43 (PCR) Coronavirus HKU1 (PCR) Coronavirus 229E (PCR) Coronavirus NL63 (PCR) Human Metapneumovir PCR Influenza Type A (PCR) Influenza Type B (PCR) M. pneumoniae (PCR) Parainfluenza 1 (PCR) Parainfluenza 2 (PCR) Parainfluenza 3 (PCR) Parainfluenza 4 (PCR) RSV (PCR) Entero/Rhino (PCR) Blood Type Antibody Screen 02/16/19 02/16/19 02/16/19 00:15 04:40 04:40 WBC 5.3 RBC 3.93 L Hgb 11.5 L Hct 33.3 L MCV 84.8 MCH 29.4 MCHC 34.7 RDW 13.8 Plt Count 177 Neut % (Auto) 62.3 Lymph % (Auto) 22.0 L Ida % (Auto) 14.6 H Eos % (Auto) 0.6 L Baso % (Auto) 0.5 Neut # (Auto) 3300 Lymph # (Auto) 1200 Ida # (Auto) 800 Eos # (Auto) 0 Baso # (Auto) 0 PT INR APTT Sodium 132 L Potassium 4.5 Chloride 98 Carbon Dioxide 20 L BUN 19 Creatinine 0.80 Estimated GFR > 60.0 BUN/Creatinine Ratio 23.8 H Glucose 269 H Hemoglobin A1c Lactate Calcium 8.8 Magnesium Total Bilirubin AST ALT Alkaline Phosphatase Troponin I 0.027 Total Protein Albumin Globulin Albumin/Globulin Ratio Procalcitonin TSH Urine Color Yellow Urine Appearance Clear Urine pH 5.0 Ur Specific [place] 1.025 Urine Protein Negative Urine Glucose (UA) 1+ H Urine Ketones 3+ H Urine Occult Blood Trace-lysed Urine Nitrate Negative Urine Bilirubin Negative Urine Urobilinogen 0.2 Ur Leukocyte Esterase Negative Nasal Screen MRSA (PCR) Chlamy pneumoniae PCR Adenovirus (PCR) B.parapertussis DNA PCR Coronavirus OC43 (PCR) Coronavirus HKU1 (PCR) Coronavirus 229E (PCR) Coronavirus NL63 (PCR) Human Metapneumovir PCR Influenza Type A (PCR) Influenza Type B (PCR) M. pneumoniae (PCR) Parainfluenza 1 (PCR) Parainfluenza 2 (PCR) Parainfluenza 3 (PCR) Parainfluenza 4 (PCR) RSV (PCR) Entero/Rhino (PCR) Blood Type Antibody Screen 02/16/19 04:40 WBC RBC Hgb Hct MCV MCH MCHC RDW Plt Count Neut % (Auto) Lymph % (Auto) Ida % (Auto) Eos % (Auto) Baso % (Auto) Neut # (Auto) Lymph # (Auto) Ida # (Auto) Eos # (Auto) Baso # (Auto) PT INR APTT Sodium Potassium Chloride Carbon Dioxide BUN Creatinine Estimated GFR BUN/Creatinine Ratio Glucose Hemoglobin A1c Lactate Calcium Magnesium Total Bilirubin AST ALT Alkaline Phosphatase Troponin I Total Protein Albumin Globulin Albumin/Globulin Ratio Procalcitonin 0.11 TSH Urine Color Urine Appearance Urine pH Ur Specific [place] Urine Protein Urine Glucose (UA) Urine Ketones Urine Occult Blood Urine Nitrate Urine Bilirubin Urine Urobilinogen Ur Leukocyte Esterase Nasal Screen MRSA (PCR) Chlamy pneumoniae PCR Adenovirus (PCR) B.parapertussis DNA PCR Coronavirus OC43 (PCR) Coronavirus HKU1 (PCR) Coronavirus 229E (PCR) Coronavirus NL63 (PCR) Human Metapneumovir PCR Influenza Type A (PCR) Influenza Type B (PCR) M. pneumoniae (PCR) Parainfluenza 1 (PCR) Parainfluenza 2 (PCR) Parainfluenza 3 (PCR) Parainfluenza 4 (PCR) RSV (PCR) Entero/Rhino (PCR) Blood Type Antibody Screen Discharge Plan Discharge Plan Discharge Problem: Atrial fibrillation with rapid ventricular response, Gastrointestinal hemorrhage with melena Patient Disposition: Home Discharge Med Rec/Prescriptions Prescriptions: New gabapentin [Neurontin] 600 mg Tablet 600 mg PO BID Qty: 60 RF: 0 Robitussin Cough-Chest Thomas DM 10-200 mg capsule 1 tab-cap PO Q8H PRN (Reason: cough) Qty: 20 RF: 0 Continued levothyroxine 175 mcg tablet 175 mcg PO QAM Qty: 30 RF: 11 metoprolol tartrate 100 mg tablet 100 mg PO BID Qty: 180 RF: 5 tamsulosin 0.4 mg capsule 0.4 mg PO BEDTIME Qty: 30 RF: 5 furosemide 20 MG tablet 20 mg PO QDAY Qty: 30 RF: 11 insulin aspart U-100 [Novolog U-100 Insulin aspart] 100 unit/mL solution 20 unit SUBCUT QAC Qty: 2 RF: 12 esomeprazole magnesium [Nexium] 40 mg capsule,delayed release(DR/EC) 40 mg PO Q DAY Qty: 90 RF: 1 losartan 25 mg tablet 25 mg PO QDAY Qty: 90 RF: 1 aspirin 81 mg tablet,delayed release (DR/EC) 2 tab PO DAILY RF: 0 docusate sodium [Col-Rite] 250 mg capsule 250 mg PO DAILY PRN (Reason: Constipation) RF: 0 Lantus U-100 Insulin 57 units subcut DAILY RF: 0 nystatin 100,000 unit/gram cream 1 applictn TOP BID PRN (Reason: Rash) RF: 0 No Action Syringes: 1cc Insulin Syringes with [place] .Route .MEDSUPPLY Qty: 100 RF: 3 Glucose: Test Strips See Rx Instructions .Route .MEDSUPPLY Qty: 100 RF: 6 Follow up/Referrals: Pb Montero MD [Primary Care Provider] - 02/25/19 2:00 pm (Follow-up appointment scheduled with Dr. Montero at 2 pm on February 25. Margaret VANESSA will be calling you prior to appointment to ask you some questions. ) Provider Discharge Instructions Diet: Carb-consistent/Diabetic, Low-fat and Low-sodium Activity: as tolerated Oxygen: not indicated Skin/Wound/Dressing Care Report to your healthcare provider any signs of infection, such as:: chills, fever and night sweats Discharge Data Primary Care Provider: Pb Montero Attending Provider: Maverick Hughes Admit Date/Time: 02/15/19 20:31 Quality VTE Deep Vein Thrombosis/Pulmonary Embolism Present on Admission: No
--- NOTE | 2019-02-16 12:30 | P.DS_ITS ---
History of Present Illness Date Patient Seen: 02/16/19 Chief complaint: dizziness Narrative: Tulio Yi is a 73-year-old male patient with a history of coronary artery disease, prior [place] status post CABG, atrial fibrillation, carotid artery disease, peripheral vascular disease, diabetes, hypertension, hyperlipidemia, hypothyroidism and bilateral [id number] amputations. The patient states that he has not felt well for a year however he has had marked increased weakness over the last week and called EMS today late to weakness and a fall. The patient additionally reports poor appetite, intermittently productive cough with nasal congestion, nausea and epigastric discomfort. The patient also discloses passing black stools and has been having occasional dizziness. Upon arrival of EMS the patient was found to be in a rapid atrial fibrillation in 150s to 160s. The patient denies chest pain but has been having episodes of shortness of breath that he describes as panic attacks and air hunger. Reports no fevers or chills, no headaches or visual changes and no sore throat. Patient has been nauseated but has not thrown up and no reports of hematemesis. Patient previously was on aspirin but ran out 6 days ago and has not been taking it since. He does take Nexium daily. He is an insulin-dependent diabetic however he indicates that he has not been using Lantus. He is taking insulin 20 units 1 time today for elevated sugar. The patient has bilateral lower extremity below the knee amputations indicates related to peripheral vascular disease secondary to diabetes. Reports no complaints of phantom pain. Upon arrival in the ER at 6:45 p.m. the patient had a temperature of 99.2?, heart rate of 160, blood pressure 149/100, a respiratory rate of 25 and 92% on room air. His chest x-ray is concerning for right lower lobe pneumonia and his EKG reveals a rapid atrial fibrillation at 153 with an incomplete right bundle branch block and no ectopy, ST or T-wave changes. His troponin was 0.018 and he had a lactate 1.4. Does have elevated INR 1.2 on no anticoagulation. His hemoglobin is 11.6 with hematocrit of 36.2. Remainder of his chemistries are within normal range except for glucose at 324. Discharge Providers Date of admission: 02/15/19 20:31 Discharge Date: 02/16/19 Primary care physician: Pb Montero MD Consults: 02/15/19 21:31 Consult to Dietitian, Adult Routine Comment: Reason For Exam: Morbid obesity, DM, gastroperesis 02/15/19 21:32 Consult to Physical Therapy Evaluate & Treat Comment: Bilateral BKA Physician Instructions: Evaluate and Treat 02/15/19 21:33 Consult to Discharge Planning Routine Comment: Discharge provider: Patricia Smith MD Summary Discharge Diagnosis: Paroxsymal Atrial Fibrillation with rapid ventricular response, present on admission Pneumonia, secondary to Human Metapneumovirus, present on admission TYpe 1 diabetes, on insulin poorly controlled CAD, s/p CABG Carotid artery Disease Perepheral Vascular Disease S/P bilateral BKA Hyponatremia Hypertesnion Hyperlipidemia Hypothyroidism Hospital Course: Patient was admitted to the hospital for evaluation of dizziness, rapid atrial fibrillation. Patient was found to have human metapneumovirus. He was treated with a diltiazem drip, IV digoxin and his usual metoprolol. His heart rate improved overnight. The patients breathing was back to baseline. His major complaint was cough. His blood sugars were elevated and he was treated with basal bolus insulin. The patient recovered quicker than anticipated and was deemed appropriate for discharge home. The patient will follow up with Dr. Montero next week. Exam Vital Signs (past 8 hours): - 02/16/19 06:00 02/16/19 08:25 02/16/19 12:08 Temperature 98.0 F 97.5 F L 98.4 F Pulse Rate 88 79 80 Respiratory Rate 18 20 19 Blood Pressure 133/65 148/66 H 128/62 Pulse Oximetry 90 L 95 92 Oxygen Delivery Method Nasal Cannula Oxygen Flow Rate 0 Narrative Exam Narrative: ill appearing male in no acute distress Lungs: decreased breath sounds with scattered rhonchi CV: irregularly, irregular nl Sl S2 Abd: soft/ nontender/ nondistended Ext: bilateral BKA;s Objective Labs Result Diagrams: 02/16/19 04:40 02/16/19 04:40 Labs: Laboratory Results - last 24 hr 02/15/19 02/15/19 02/15/19 18:40 18:40 18:40 WBC 6.0 RBC 4.14 L Hgb 11.6 L Hct 36.2 L MCV 87.4 MCH 28.1 MCHC 32.1 RDW 13.6 Plt Count 178 Neut % (Auto) 73.3 Lymph % (Auto) 15.1 L [place] % (Auto) 10.8 Eos % (Auto) 0.4 L Baso % (Auto) 0.4 Neut # (Auto) 4400 Lymph # (Auto) 900 L [place] # (Auto) 600 Eos # (Auto) 0 Baso # (Auto) 0 PT INR APTT Sodium 133 L Potassium 4.4 Chloride 94 L Carbon Dioxide 22 BUN 15 Creatinine 0.70 Estimated GFR > 60.0 BUN/Creatinine Ratio 21.4 Glucose 324 H Hemoglobin A1c Lactate 1.4 Calcium 8.9 Magnesium 1.5 L Total Bilirubin 0.8 AST 26 ALT 35 Alkaline Phosphatase 139 H Troponin I Total Protein 6.6 Albumin 3.7 Globulin 2.9 Albumin/Globulin Ratio 1.3 Procalcitonin TSH Urine Color Urine Appearance Urine pH Ur Specific [place] Urine Protein Urine Glucose (UA) Urine Ketones Urine Occult Blood Urine Nitrate Urine Bilirubin Urine Urobilinogen Ur Leukocyte Esterase Nasal Screen MRSA (PCR) Chlamy pneumoniae PCR Adenovirus (PCR) B.parapertussis DNA PCR Coronavirus OC43 (PCR) Coronavirus HKU1 (PCR) Coronavirus 229E (PCR) Coronavirus NL63 (PCR) Human Metapneumovir PCR Influenza Type A (PCR) Influenza Type B (PCR) M. pneumoniae (PCR) Parainfluenza 1 (PCR) Parainfluenza 2 (PCR) Parainfluenza 3 (PCR) Parainfluenza 4 (PCR) RSV (PCR) Entero/Rhino (PCR) Blood Type Antibody Screen 02/15/19 02/15/19 02/15/19 18:40 18:40 18:40 WBC RBC Hgb Hct MCV MCH MCHC RDW Plt Count Neut % (Auto) Lymph % (Auto) [place] % (Auto) Eos % (Auto) Baso % (Auto) Neut # (Auto) Lymph # (Auto) [place] # (Auto) Eos # (Auto) Baso # (Auto) PT 13.7 H INR 1.2 APTT 27 D Sodium Potassium Chloride Carbon Dioxide BUN Creatinine Estimated GFR BUN/Creatinine Ratio Glucose Hemoglobin A1c 8.7 H Lactate Calcium Magnesium Total Bilirubin AST ALT Alkaline Phosphatase Troponin I 0.018 Total Protein Albumin Globulin Albumin/Globulin Ratio Procalcitonin TSH Urine Color Urine Appearance Urine pH Ur Specific [place] Urine Protein Urine Glucose (UA) Urine Ketones Urine Occult Blood Urine Nitrate Urine Bilirubin Urine Urobilinogen Ur Leukocyte Esterase Nasal Screen MRSA (PCR) Chlamy pneumoniae PCR Adenovirus (PCR) B.parapertussis DNA PCR Coronavirus OC43 (PCR) Coronavirus HKU1 (PCR) Coronavirus 229E (PCR) Coronavirus NL63 (PCR) Human Metapneumovir PCR Influenza Type A (PCR) Influenza Type B (PCR) M. pneumoniae (PCR) Parainfluenza 1 (PCR) Parainfluenza 2 (PCR) Parainfluenza 3 (PCR) Parainfluenza 4 (PCR) RSV (PCR) Entero/Rhino (PCR) Blood Type Antibody Screen 02/15/19 02/15/19 02/15/19 18:43 18:43 22:00 WBC RBC Hgb Hct MCV MCH MCHC RDW Plt Count Neut % (Auto) Lymph % (Auto) [place] % (Auto) Eos % (Auto) Baso % (Auto) Neut # (Auto) Lymph # (Auto) [place] # (Auto) Eos # (Auto) Baso # (Auto) PT INR APTT Sodium Potassium Chloride Carbon Dioxide BUN Creatinine Estimated GFR BUN/Creatinine Ratio Glucose Hemoglobin A1c Lactate Calcium Magnesium Total Bilirubin AST ALT Alkaline Phosphatase Troponin I Total Protein Albumin Globulin Albumin/Globulin Ratio Procalcitonin 0.11 TSH Urine Color Urine Appearance Urine pH Ur Specific [place] Urine Protein Urine Glucose (UA) Urine Ketones Urine Occult Blood Urine Nitrate Urine Bilirubin Urine Urobilinogen Ur Leukocyte Esterase Nasal Screen MRSA (PCR) Chlamy pneumoniae PCR Not detected Adenovirus (PCR) Not detected B.parapertussis DNA PCR Not detected Coronavirus OC43 (PCR) Not detected Coronavirus HKU1 (PCR) Not detected Coronavirus 229E (PCR) Not detected Coronavirus NL63 (PCR) Not detected Human Metapneumovir PCR Detected H Influenza Type A (PCR) Not detected Influenza Type B (PCR) Not detected M. pneumoniae (PCR) Not detected Parainfluenza 1 (PCR) Not detected Parainfluenza 2 (PCR) Not detected Parainfluenza 3 (PCR) Not detected Parainfluenza 4 (PCR) Not detected RSV (PCR) Not detected Entero/Rhino (PCR) Not detected Blood Type O Positive Antibody Screen Negative 02/15/19 02/15/19 02/15/19 22:00 22:59 22:59 WBC RBC Hgb Hct MCV MCH MCHC RDW Plt Count Neut % (Auto) Lymph % (Auto) [place] % (Auto) Eos % (Auto) Baso % (Auto) Neut # (Auto) Lymph # (Auto) [place] # (Auto) Eos # (Auto) Baso # (Auto) PT INR APTT Sodium Potassium Chloride Carbon Dioxide BUN Creatinine Estimated GFR BUN/Creatinine Ratio Glucose Hemoglobin A1c Lactate Calcium Magnesium Total Bilirubin AST ALT Alkaline Phosphatase Troponin I 0.013 Total Protein Albumin Globulin Albumin/Globulin Ratio Procalcitonin TSH 2.65 Urine Color Urine Appearance Urine pH Ur Specific [place] Urine Protein Urine Glucose (UA) Urine Ketones Urine Occult Blood Urine Nitrate Urine Bilirubin Urine Urobilinogen Ur Leukocyte Esterase Nasal Screen MRSA (PCR) Negative for mrsa Chlamy pneumoniae PCR Adenovirus (PCR) B.parapertussis DNA PCR Coronavirus OC43 (PCR) Coronavirus HKU1 (PCR) Coronavirus 229E (PCR) Coronavirus NL63 (PCR) Human Metapneumovir PCR Influenza Type A (PCR) Influenza Type B (PCR) M. pneumoniae (PCR) Parainfluenza 1 (PCR) Parainfluenza 2 (PCR) Parainfluenza 3 (PCR) Parainfluenza 4 (PCR) RSV (PCR) Entero/Rhino (PCR) Blood Type Antibody Screen 02/16/19 02/16/19 02/16/19 00:15 04:40 04:40 WBC 5.3 RBC 3.93 L Hgb 11.5 L Hct 33.3 L MCV 84.8 MCH 29.4 MCHC 34.7 RDW 13.8 Plt Count 177 Neut % (Auto) 62.3 Lymph % (Auto) 22.0 L [place] % (Auto) 14.6 H Eos % (Auto) 0.6 L Baso % (Auto) 0.5 Neut # (Auto) 3300 Lymph # (Auto) 1200 [place] # (Auto) 800 Eos # (Auto) 0 Baso # (Auto) 0 PT INR APTT Sodium 132 L Potassium 4.5 Chloride 98 Carbon Dioxide 20 L BUN 19 Creatinine 0.80 Estimated GFR > 60.0 BUN/Creatinine Ratio 23.8 H Glucose 269 H Hemoglobin A1c Lactate Calcium 8.8 Magnesium Total Bilirubin AST ALT Alkaline Phosphatase Troponin I 0.027 Total Protein Albumin Globulin Albumin/Globulin Ratio Procalcitonin TSH Urine Color Yellow Urine Appearance Clear Urine pH 5.0 Ur Specific [place] 1.025 Urine Protein Negative Urine Glucose (UA) 1+ H Urine Ketones 3+ H Urine Occult Blood Trace-lysed Urine Nitrate Negative Urine Bilirubin Negative Urine Urobilinogen 0.2 Ur Leukocyte Esterase Negative Nasal Screen MRSA (PCR) Chlamy pneumoniae PCR Adenovirus (PCR) B.parapertussis DNA PCR Coronavirus OC43 (PCR) Coronavirus HKU1 (PCR) Coronavirus 229E (PCR) Coronavirus NL63 (PCR) Human Metapneumovir PCR Influenza Type A (PCR) Influenza Type B (PCR) M. pneumoniae (PCR) Parainfluenza 1 (PCR) Parainfluenza 2 (PCR) Parainfluenza 3 (PCR) Parainfluenza 4 (PCR) RSV (PCR) Entero/Rhino (PCR) Blood Type Antibody Screen 02/16/19 04:40 WBC RBC Hgb Hct MCV MCH MCHC RDW Plt Count Neut % (Auto) Lymph % (Auto) [place] % (Auto) Eos % (Auto) Baso % (Auto) Neut # (Auto) Lymph # (Auto) [place] # (Auto) Eos # (Auto) Baso # (Auto) PT INR APTT Sodium Potassium Chloride Carbon Dioxide BUN Creatinine Estimated GFR BUN/Creatinine Ratio Glucose Hemoglobin A1c Lactate Calcium Magnesium Total Bilirubin AST ALT Alkaline Phosphatase Troponin I Total Protein Albumin Globulin Albumin/Globulin Ratio Procalcitonin 0.11 TSH Urine Color Urine Appearance Urine pH Ur Specific [place] Urine Protein Urine Glucose (UA) Urine Ketones Urine Occult Blood Urine Nitrate Urine Bilirubin Urine Urobilinogen Ur Leukocyte Esterase Nasal Screen MRSA (PCR) Chlamy pneumoniae PCR Adenovirus (PCR) B.parapertussis DNA PCR Coronavirus OC43 (PCR) Coronavirus HKU1 (PCR) Coronavirus 229E (PCR) Coronavirus NL63 (PCR) Human Metapneumovir PCR Influenza Type A (PCR) Influenza Type B (PCR) M. pneumoniae (PCR) Parainfluenza 1 (PCR) Parainfluenza 2 (PCR) Parainfluenza 3 (PCR) Parainfluenza 4 (PCR) RSV (PCR) Entero/Rhino (PCR) Blood Type Antibody Screen Discharge Plan Discharge Plan Discharge Problem: Atrial fibrillation with rapid ventricular response, Gastrointestinal hemorrhage with melena Patient Disposition: Home Discharge Med Rec/Prescriptions Prescriptions: New gabapentin [Neurontin] 600 mg Tablet 600 mg PO BID Qty: 60 RF: 0 Robitussin Cough-Chest Thomas DM 10-200 mg capsule 1 tab-cap PO Q8H PRN (Reason: cough) Qty: 20 RF: 0 Continued levothyroxine 175 mcg tablet 175 mcg PO QAM Qty: 30 RF: 11 metoprolol tartrate 100 mg tablet 100 mg PO BID Qty: 180 RF: 5 tamsulosin 0.4 mg capsule 0.4 mg PO BEDTIME Qty: 30 RF: 5 furosemide 20 MG tablet 20 mg PO QDAY Qty: 30 RF: 11 insulin aspart U-100 [Novolog U-100 Insulin aspart] 100 unit/mL solution 20 unit SUBCUT QAC Qty: 2 RF: 12 esomeprazole magnesium [Nexium] 40 mg capsule,delayed release(DR/EC) 40 mg PO Q DAY Qty: 90 RF: 1 losartan 25 mg tablet 25 mg PO QDAY Qty: 90 RF: 1 aspirin 81 mg tablet,delayed release (DR/EC) 2 tab PO DAILY RF: 0 docusate sodium [Col-Rite] 250 mg capsule 250 mg PO DAILY PRN (Reason: Constipation) RF: 0 Lantus U-100 Insulin 57 units subcut DAILY RF: 0 nystatin 100,000 unit/gram cream 1 applictn TOP BID PRN (Reason: Rash) RF: 0 No Action Syringes: 1cc Insulin Syringes with [place] .Route .MEDSUPPLY Qty: 100 RF: 3 Glucose: Test Strips See Rx Instructions .Route .MEDSUPPLY Qty: 100 RF: 6 Follow up/Referrals: Pb Montero MD [Primary Care Provider] - 02/25/19 2:00 pm (Follow-up appointment scheduled with Dr. Montero at 2 pm on February 25. Margaret VANESSA will be calling you prior to appointment to ask you some questions. ) Provider Discharge Instructions Diet: Carb-consistent/Diabetic, Low-fat and Low-sodium Activity: as tolerated Oxygen: not indicated Skin/Wound/Dressing Care Report to your healthcare provider any signs of infection, such as:: chills, fever and night sweats Discharge Data Primary Care Provider: Pb Montero Attending Provider: Maverick Hughes Admit Date/Time: 02/15/19 20:31 Quality VTE Deep Vein Thrombosis/Pulmonary Embolism Present on Admission: No
[2019-02-16] MEDS: INSULIN ASPART 100 UNIT/ML INSULN PEN 14 UNIT SUBCUT (13:09)
--- NOTE | 2019-02-16 15:02 | CM.DANOTE ---
Discharge Planning/Care Management DCP: continued: case received, EMR reviewed. Discussed in Team Rounds. Dr. Smith noted the compexity of pt's comorbidities and current treaments. INPT Admission status: Discussed by Dr. Smith and UR RN Edd and confirmed as same. Pt is a 73 year old male who admitted late last night to care of the hospitalist team. Payer: [employer] D/primary Medicare A/secondary. Pt with hx of IDDM, status post bilateral BKAs. 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 Planned to see pt this afternoon for continuation of assessment process and initial discussion of d/c issues and options. DC order was noted. Review of Dr. Smith's note says that pt did recover quickly for his initial symtoms and needed close followup with his PCP: Dr. Montero. Appt is set for 02/25. Pt has already left for home. LOS<24 hours. CM Discharge Assessment Start: 02/16/19 15:01 Freq: Status: Discharge Protocol: Document 02/16/19 15:01 ITV (Rec: 02/16/19 15:02 ITV [id number]) Discharge Planning Assessment Advance Directives? No History Provided By Medical Record Prior Living Arrangements House Household Members spouse Review Status In Process Next Review Type Continued Stay Review
--- NOTE | 2019-02-16 15:14 | DIET.PN ---
Late entry. Pt discharged earlier. Visited before during lunch. States he does not need Dm diet education or assistance with nutrition as he knows what to do; just needs to apply it.
== END 2019-02-16 13:55 | disposition home or self-care (01) ==
LOC: ED 20:29 → ICU 02-16 08:28 → AC 02-19 11:40
PROVIDERS: Admitting Provider Nurse Practitioner Adult Health; Emergency Provider Emergency Medicine; Family Provider Student in an Organized Health Care Education/Training Program; PCP Student in an Organized Health Care Education/Training Program; Visit Provider Nurse Practitioner Adult Health
DX: I48.0 Paroxysmal atrial fibrillation (principal); R42 Dizziness and giddiness; J12.3 Human metapneumovirus pneumonia; K92.1 Melena; E87.1 Hypo-osmolality and hyponatremia; E66.01 Morbid (severe) obesity due to excess calories; Z68.41 Body mass index [BMI] 40.0-44.9, adult; E11.43 Type 2 diabetes mellitus with diabetic autonomic (poly)neuropathy; Z79.4 Long term (current) use of insulin; E11.65 Type 2 diabetes mellitus with hyperglycemia; I10 Essential (primary) hypertension; K31.84 Gastroparesis; I25.10 Atherosclerotic heart disease of native coronary artery without angina pectoris; Z95.1 Presence of aortocoronary bypass graft; E78.5 Hyperlipidemia, unspecified; E03.9 Hypothyroidism, unspecified; Z89.512 Acquired absence of left leg below knee; Z89.511 Acquired absence of right leg below knee; N40.0 Benign prostatic hyperplasia without lower urinary tract symptoms
CPT/HCPCS: 36415; 71046; 80048; 80053; 81003; 82962; 83036; 83605; 83735; 84145; 84443; 84484; 85025; 85610; 85730; 86850; 86900; 86901; 87449; 87633; 87797; 93005; 93306; 96361; 96365; 96366; 96368; 96375; 97116; 97162; 99285; 99291; 99292; G0378; C9113; J0696; J1160; Q9957

== ENCOUNTER 2019-08-27 11:43 | Emergency (ER) | payer OTHER, SELFPAY ==
[2019-02-15 22:36] VITALS: BMI 40.7
[2019-08-27 11:45] VITALS: BP 179/96; PULSE 98; RESP 18; TEMP 36.9; O2SAT 95
[2019-08-27 12:19] LABS: Add Manual Diff / Slide Review NO; Basophils Absolute Auto 0 /uL (0-100); Basophils Percent Auto 0.7 % (0-2); Eosinophils Absolute Auto 100 /uL (0-450); Eosinophils Percent Auto 2.3 % (2-4); Hematocrit 37.1 % (41-53); Hemoglobin 12.2 g/dL (13.5-17.5); Lymphocytes Absolute Auto 1500 /uL (1100-4500); Lymphocytes Percent Auto 31.3 % (25-40); Mean Corpuscular HGB Conc 32.8 % (30-36); Mean Corpuscular Hemoglobin 29.2 PG (26-34); Mean Corpuscular Volume 89.1 fL (80-100); Monocytes Absolute Auto 400 /uL (0-900); Monocytes Percent Auto 8.3 % (3-14); Neutrophils Absolute Auto 2800 /uL (1500-7000); Neutrophils Percent Auto 57.4 % (50-75); Platelet Count 157 X10^3/uL (150-400); Red Blood Cell Count 4.17 X10^6/uL (4.5-5.9); Red Cell Distribution Width 13.9 % (11.6-14.8); White Blood Cell Count 4.8 X10^3/uL (4.5-11.0)
[2019-08-27 12:26] LABS: INR 1.2 (0.9-1.3); Prothrombin Time 13.4 SECONDS (10.1-12.7)
[2019-08-27 12:28] LABS: PTT Partial Thromboplastin Tim 32 SECONDS (26.4-36.2)
[2019-08-27 12:30] LABS: Alanine Aminotransferase 33 IU/L (21-72); Albumin 3.9 g/dL (3.5-5.0); Albumin Globulin Ratio 1.4 (1.0-2.8); Alkaline Phosphatase 149 U/L (38-126); Aspartate Aminotransferase 33 IU/L (17-59); Bilirubin Total 0.9 mg/dL (0.2-1.3); Blood Urea Nitrogen 15 mg/dL (9-20); Calcium 9.3 mg/dL (8.4-10.2); Carbon Dioxide 31 mmol/L (22-32); Chloride 102 mmol/L (98-107); Estimated Glomerular Filt Rate > 60.0 mL/min (>60); Globulin 2.7 g/dL (1.7-4.1); Glucose 223 mg/dL (80-110); HEMOLYSIS < 15 (0-50); Potassium 4.3 mmol/L (3.4-5.1); Sodium 139 mmol/L (137-145); Total Protein 6.6 g/dL (6.3-8.2)
--- NOTE | 2019-08-27 13:23 | ED_ITS ---
HPI - Abdominal Pain <Malathi DeshpandeMICHELLE talaveraP-BC - Last Filed: 08/27/19 21:00> General Chief Complaint: Abdominal Pain Stated Complaint: blood in stool pain in stomach and intestines Time Seen by Provider: 08/27/19 12:50 Source: patient Mode of arrival: Ambulatory Limitations: no limitations History of Present Illness HPI narrative: The patient is a 73-year-old male nonsmoker history of coronary artery bypass who presents with a chief complaint of bloody stools on and off for over a year, concern of possible cellulitis on his lower abdomen, concern of hernia, trouble urinating. He denies any fevers nausea vomiting and states that he alternates between constipation and diarrhea. He last took Kaopectate 2 days ago and then states that his stool today was very dark. He denies any lighth eadedness or dizziness. He denies any chest pain or shortness of breath. He states that he is here today as he is a new great grandchild and wants to be ?checked out to make sure everything is okay. He states that he is concerned about cellulitis over his abdomen. Related Data Home Medications Medication Instructions Recorded Confirmed aspirin 2 tab PO DAILY 09/16/18 02/25/19 docusate sodium 250 mg PO DAILY PRN 09/16/18 02/25/19 Lantus U-100 Insulin 57 units SUBCUT DAILY 02/15/19 02/25/19 nystatin 1 applictn TOP BID PRN 02/15/19 02/25/19 esomeprazole magnesium [Nexium] 40 mg PO DAILY 08/27/19 08/27/19 losartan 25 mg PO DAILY 08/27/19 08/27/19 rosuvastatin 20 mg PO DAILY 08/27/19 08/27/19 Previous Rx's Medication Instructions Recorded furosemide 20 mg PO QDAY #30 tabs 09/18/17 levothyroxine 175 mcg tablet 175 mcg PO QAM #30 tab 08/11/18 metoprolol tartrate 100 mg tablet 100 mg PO BID #180 tab 08/11/18 tamsulosin 0.4 mg capsule 0.4 mg PO BEDTIME #30 cap 08/11/18 Syringes: 1cc Insulin Syringes #100 each 11/19/18 with [place] Glucose: Test Strips #100 each 11/30/18 gabapentin [Neurontin] 600 mg PO BID #60 tab 02/16/19 insulin aspart U-100 100 unit/mL 15 unit SUBCUT [facility] #2 vial 06/04/19 subcutaneous solution Allergies Allergy/AdvReac Type Severity Reaction Status Date / Time adhesive tape [ADHESIVE TAPE] AdvReac Mild PATIENT Verified 02/15/19 18:15 STATES IT PEELS HIS SKIN OFF lisinopril [LISINOPRIL] AdvReac Mild COUGH Verified 02/15/19 18:15 prochlorperazine AdvReac Unknown Verified 02/15/19 18:15 [PROCHLORPERAZINE] shellfish derived AdvReac Unknown Verified 02/15/19 18:15 [SHELLFISH DERIVED] Review of Systems <SAMMY Albarran - Last Filed: 08/27/19 21:00> Review of Systems Narrative: GENERAL: Denies chills, fatigue, malaise, fever, sweats. HEENT: Denies sinus pain, ear pain, sore throat, difficulty swallowing, dizziness. RESPIRATORY: Denies dyspnea, cough, wheezing, hemoptysis, sputum. CARDIOVASCULAR: Denies chest pain, palpitations, orthopnea, edema, GASTROINTESTINAL: See HPI : see HPI MUSCULOSKELETAL: denies weakness, joint pain, or bony pain SKIN: See HPI NEUROLOGIC: Denies weakness, headache, numbness, change in speech, confusion, seizures, incoordination. PSYCHIATRIC: No concerning psychosocial issues. 12 point review of systems is negative except for those stated above Exam <SAMMY Albarran - Last Filed: 08/27/19 21:00> Narrative Exam Narrative: GENERAL: Obese male in no acute distress HEAD: Atraumatic. Normocephalic. No temporal or scalp tenderness. EYES: Pupils equal round and reactive. Extraocular motions intact. No scleral icterus. No injection or drainage. ENT: Nose without bleeding, purulent drainage or septal hematoma. Throat without erythema, tonsillar hypertrophy or exudate. Uvula midline. Airway patent. NECK: Trachea midline. No JVD or lymphadenopathy. Supple, nontender, no meningeal signs. CARDIOVASCULAR: Regular rate and irregular rhythm RESPIRATORY: Clear to auscultation. Breath sounds equal bilaterally. No wheezes, rales, or rhonchi. No cough. No increased respiratory effort. No accessory muscle use. GASTROINTESTINAL: Abdomen soft, non-tender, nondistended. No hepato- splenomegaly, or palpable masses. No guarding. Active bowel sounds all 4 quad rants. EXTREMITIES: Bilateral BKA. BACK: Nontender without deformity or crepitance. No flank tenderness. NEURO: AOx3. SKIN: No rash or erythema on visible skin, including over abdomen and genitals : exam: No gross blood on exam. Heme-positive stool. Slightly swollen scrotum with no erythema Robert RN standby. Initial Vital Signs Initial Vital Signs: Vital Signs Temperature 98.5 F 08/27/19 11:45 Pulse Rate 98 H 08/27/19 11:45 Respiratory Rate 18 08/27/19 11:45 Blood Pressure 179/96 H 08/27/19 11:45 Pulse Oximetry 95 08/27/19 11:45 <Murtaza Watson DO - Last Filed: 09/01/19 18:44> Initial Vital Signs Initial Vital Signs: Vital Signs Temperature 98.5 F 08/27/19 11:45 Pulse Rate 98 H 08/27/19 11:45 Respiratory Rate 18 08/27/19 11:45 Blood Pressure 179/96 H 08/27/19 11:45 Pulse Oximetry 95 08/27/19 11:45 Scores <SAMMY Albarran - Last Filed: 08/27/19 21:00> GCS [place] coma scale eye opening: Spontaneous Des coma scale verbal response: Orientated Des coma scale motor response: Obey commands Ames coma scale total score: 15 Course <SAMMY Albarran - Last Filed: 08/27/19 21:00> Orders Ordered: Discontinued Medications Sodium Chloride (Normal Saline 0.9%) 1,000 mls @ 1,000 mls/hr IV BOLUS ONE Stop: 08/27/19 16:56 Last Infusion: 08/27/19 19:13 Dose: 0 mls/hr Documented by: Admin: 08/27/19 16:58 Dose: 1,000 mls/hr Documented by: MEAGHAN Vital Signs Vital signs: Vital Signs - 8 hr 08/27/19 14:00 08/27/19 16:42 08/27/19 19:15 Pulse Rate 95 H 118 H 98 H Respiratory Rate 18 18 18 Blood Pressure 162/102 H Blood Pressure [Right Arm] 168/74 H 158/90 H Pulse Oximetry 98 95 96 <Murtaza Watson DO - Last Filed: 09/01/19 18:44> Orders Ordered: Discontinued Medications Sodium Chloride (Normal Saline 0.9%) 1,000 mls @ 1,000 mls/hr IV BOLUS ONE Stop: 08/27/19 16:56 Last Infusion: 08/27/19 19:13 Dose: 0 mls/hr Documented by: Admin: 08/27/19 16:58 Dose: 1,000 mls/hr Documented by: MEAGHAN Vital Signs Vital signs: Vital Signs - 8 hr 08/27/19 14:00 08/27/19 16:42 08/27/19 19:15 Pulse Rate 95 H 118 H 98 H Respiratory Rate 18 18 18 Blood Pressure 162/102 H Blood Pressure [Right Arm] 168/74 H 158/90 H Pulse Oximetry 98 95 96 MDM - Abdominal Pain <CANDELARIO AlbarranBC - Last Filed: 08/27/19 21:00> Lab Data Result diagrams: 08/27/19 12:05 08/27/19 12:05 Labs: Lab Results 08/27/19 08/27/19 08/27/19 Range/Units 12:05 12:05 12:05 WBC 4.8 (4.5-11.0) X10^3/uL RBC 4.17 L (4.5-5.9) X10^6/uL Hgb 12.2 L (13.5-17.5) g/dL Hct 37.1 L (41-53) % MCV 89.1 (80-100) fL MCH 29.2 (26-34) PG MCHC 32.8 (30-36) % RDW 13.9 (11.6-14.8) % Plt Count 157 (150-400) X10^3/uL Neut % (Auto) 57.4 (50-75) % Lymph % (Auto) 31.3 (25-40) % [place] % (Auto) 8.3 (3-14) % Eos % (Auto) 2.3 (2-4) % Baso % (Auto) 0.7 (0-2) % Neut # (Auto) 2800 (1823-7554) /uL Lymph # (Auto) 1500 (4004-4423) /uL [place] # (Auto) 400 (0-900) /uL Eos # (Auto) 100 (0-450) /uL Baso # (Auto) 0 (0-100) /uL PT 13.4 H (10.1-12.7) SECONDS INR 1.2 (0.9-1.3) APTT 32 D (26.4-36.2) SECONDS Sodium 139 (137-145) mmol/L Potassium 4.3 (3.4-5.1) mmol/L Chloride 102 (98-107) mmol/L Carbon Dioxide 31 (22-32) mmol/L BUN 15 (9-20) mg/dL Creatinine 0.60 L (0.66-1.25) mg/dL Estimated GFR > 60.0 (>60) mL/min BUN/Creatinine Ratio 25.0 H (6-22) Glucose 223 H (80-110) mg/dL Calcium 9.3 (8.4-10.2) mg/dL Total Bilirubin 0.9 (0.2-1.3) mg/dL AST 33 (17-59) IU/L ALT 33 (21-72) IU/L Alkaline Phosphatase 149 H (38-126) U/L Total Protein 6.6 (6.3-8.2) g/dL Albumin 3.9 (3.5-5.0) g/dL Globulin 2.7 (1.7-4.1) g/dL Albumin/Globulin Ratio 1.4 (1.0-2.8) Blood Type Antibody Screen 08/27/19 Range/Units 12:05 WBC (4.5-11.0) X10^3/uL RBC (4.5-5.9) X10^6/uL Hgb (13.5-17.5) g/dL Hct (41-53) % MCV (80-100) fL MCH (26-34) PG MCHC (30-36) % RDW (11.6-14.8) % Plt Count (150-400) X10^3/uL Neut % (Auto) (50-75) % Lymph % (Auto) (25-40) % [place] % (Auto) (3-14) % Eos % (Auto) (2-4) % Baso % (Auto) (0-2) % Neut # (Auto) (8332-3215) /uL Lymph # (Auto) (7191-0684) /uL [place] # (Auto) (0-900) /uL Eos # (Auto) (0-450) /uL Baso # (Auto) (0-100) /uL PT (10.1-12.7) SECONDS INR (0.9-1.3) APTT (26.4-36.2) SECONDS Sodium (137-145) mmol/L Potassium (3.4-5.1) mmol/L Chloride (98-107) mmol/L Carbon Dioxide (22-32) mmol/L BUN (9-20) mg/dL Creatinine (0.66-1.25) mg/dL Estimated GFR (>60) mL/min BUN/Creatinine Ratio (6-22) Glucose (80-110) mg/dL Calcium (8.4-10.2) mg/dL Total Bilirubin (0.2-1.3) mg/dL AST (17-59) IU/L ALT (21-72) IU/L Alkaline Phosphatase (38-126) U/L Total Protein (6.3-8.2) g/dL Albumin (3.5-5.0) g/dL Globulin (1.7-4.1) g/dL Albumin/Globulin Ratio (1.0-2.8) Blood Type O Positive Antibody Screen Negative Point of care testing: Point of Care Testing Stool Occult Blood Negative Imaging Data Scrotal ultrasound: Radiologist's impression: Tulio Yi 73 M 1945 [place] [id number] Ultrasound Report Signed Patient: Tulio Yi R#: [id number] : 6Acct:[id number] Age/Sex: 73 / MDate of Service: 08/27/19 Loc: ED Accession Number: [id number] Procedure: US scrotum Ordering Provider: Malathi Us PROCEDURE: US SCROTUM INDICATIONS: PAIN TECHNIQUE: Real-time scanning was performed of the scrotum and testicles, with image documentation. Color and pulse Doppler interrogation was performed of both testicles. COMPARISON: None. FINDINGS: Right: Testicle is normal in size at 4.0 x 2.3 x 2.9 cm, and homogenous in echotexture. Epididymis is not well seen. No hydrocele or varicoceles. Overlying scrotal skin is mildly thickened. Left: Testicle is normal in size at 3.5 x 2.2 x 3.3 cm, and homogeneous in echotexture. Epididymis is not well seen.. No hydrocele or varicoceles. Overlying scrotal skin is mildly thickened. Doppler: Color and pulse Doppler demonstrate normal and symmetric arterial flow in both testicles. IMPRESSION: Mild bilateral scrotal wall thickening. Recommend correlation potential superficial infection or edema. Dictated by: Gina Valente M.D. on 08/27/2019 at 17:48 Approved by: Gina Valente M.D. on 08/27/2019 at 17:50 [facility] Narrative Medical decision making narrative: The patient is a 73-year-old male who presents for chief complaint of GI bleeding, which she states has been going on for over a year. However his hemoglobin and hematocrit are stable with his previous lab draws, and he is stool is heme negative on exam. The patient is nontoxic appearing, hemodynamically stable throughout his stay in the emergency department. Given his complaints about his enlarged scrotum since his accident a year and half ago as well as pain to palpation, I did obtain an ultrasound to rule out any acute etiology. I found no signs of cellulitis, as the patient had none on exam as well as no leukocytosis. I encouraged him at length follow up with primary care provider. He is concerned that he has a chronic bowel etiology, given his waxing and waning constipation versus diarrhea he might. I encouraged him to follow up for his colonoscopy, which she stated he was supposed to get a year and half ago. The patient repeatedly requested to leave from the emergency department. I discussed at length coming back to the emergency department for any acute concerns such as chest pain, shortness of breath, concern of heart attack or stroke, GI bleed. Patient and have no questions or concerns upon discharge and states understanding of follow-up care as were as return precautions. <Murtaza Watson, DO - Last Filed: 09/01/19 18:44> Lab Data Labs: Lab Results 08/27/19 08/27/19 08/27/19 Range/Units 12:05 12:05 12:05 WBC 4.8 (4.5-11.0) X10^3/uL RBC 4.17 L (4.5-5.9) X10^6/uL Hgb 12.2 L (13.5-17.5) g/dL Hct 37.1 L (41-53) % MCV 89.1 (80-100) fL MCH 29.2 (26-34) PG MCHC 32.8 (30-36) % RDW 13.9 (11.6-14.8) % Plt Count 157 (150-400) X10^3/uL Neut % (Auto) 57.4 (50-75) % Lymph % (Auto) 31.3 (25-40) % [place] % (Auto) 8.3 (3-14) % Eos % (Auto) 2.3 (2-4) % Baso % (Auto) 0.7 (0-2) % Neut # (Auto) 2800 (2905-4355) /uL Lymph # (Auto) 1500 (5070-7276) /uL [place] # (Auto) 400 (0-900) /uL Eos # (Auto) 100 (0-450) /uL Baso # (Auto) 0 (0-100) /uL PT 13.4 H (10.1-12.7) SECONDS INR 1.2 (0.9-1.3) APTT 32 D (26.4-36.2) SECONDS Sodium 139 (137-145) mmol/L Potassium 4.3 (3.4-5.1) mmol/L Chloride 102 (98-107) mmol/L Carbon Dioxide 31 (22-32) mmol/L BUN 15 (9-20) mg/dL Creatinine 0.60 L (0.66-1.25) mg/dL Estimated GFR > 60.0 (>60) mL/min BUN/Creatinine Ratio 25.0 H (6-22) Glucose 223 H (80-110) mg/dL Calcium 9.3 (8.4-10.2) mg/dL Total Bilirubin 0.9 (0.2-1.3) mg/dL AST 33 (17-59) IU/L ALT 33 (21-72) IU/L Alkaline Phosphatase 149 H (38-126) U/L Total Protein 6.6 (6.3-8.2) g/dL Albumin 3.9 (3.5-5.0) g/dL Globulin 2.7 (1.7-4.1) g/dL Albumin/Globulin Ratio 1.4 (1.0-2.8) Blood Type Antibody Screen 08/27/19 Range/Units 12:05 WBC (4.5-11.0) X10^3/uL RBC (4.5-5.9) X10^6/uL Hgb (13.5-17.5) g/dL Hct (41-53) % MCV (80-100) fL MCH (26-34) PG MCHC (30-36) % RDW (11.6-14.8) % Plt Count (150-400) X10^3/uL Neut % (Auto) (50-75) % Lymph % (Auto) (25-40) % [place] % (Auto) (3-14) % Eos % (Auto) (2-4) % Baso % (Auto) (0-2) % Neut # (Auto) (6483-2184) /uL Lymph # (Auto) (8513-5401) /uL [place] # (Auto) (0-900) /uL Eos # (Auto) (0-450) /uL Baso # (Auto) (0-100) /uL PT (10.1-12.7) SECONDS INR (0.9-1.3) APTT (26.4-36.2) SECONDS Sodium (137-145) mmol/L Potassium (3.4-5.1) mmol/L Chloride (98-107) mmol/L Carbon Dioxide (22-32) mmol/L BUN (9-20) mg/dL Creatinine (0.66-1.25) mg/dL Estimated GFR (>60) mL/min BUN/Creatinine Ratio (6-22) Glucose (80-110) mg/dL Calcium (8.4-10.2) mg/dL Total Bilirubin (0.2-1.3) mg/dL AST (17-59) IU/L ALT (21-72) IU/L Alkaline Phosphatase (38-126) U/L Total Protein (6.3-8.2) g/dL Albumin (3.5-5.0) g/dL Globulin (1.7-4.1) g/dL Albumin/Globulin Ratio (1.0-2.8) Blood Type O Positive Antibody Screen Negative Point of care testing: Point of Care Testing Stool Occult Blood Negative Discharge Plan Departure Patient Disposition: Home Clinical Impression: Abdominal pain Qualifiers: Abdominal location: generalized Qualified Code(s): R10.84 - Generalized abdominal pain Discharge Date/Time: 08/27/19 19:15 Instructions: DI for Abdominal Pain-Adult Activity Restrictions/Additional Instructions: Today you came to the emergency department for multiple complaints, including bl ood in her stool. Your stool tested negative for blood. Your lab work is grossly normal today. Your ultrasound had no acute findings other than overall swelling. Please follow up with primary care provider as soon as possible. Please come back to the emergency department for any acute concerns such as chest pain, shortness of breath, GI bleeding, etc Prescriptions: No Action levothyroxine 175 mcg tablet 175 mcg PO QAM Qty: 30 RF: 11 metoprolol tartrate 100 mg tablet 100 mg PO BID Qty: 180 RF: 5 tamsulosin 0.4 mg capsule 0.4 mg PO BEDTIME Qty: 30 RF: 5 furosemide 20 MG tablet 20 mg PO QDAY Qty: 30 RF: 11 (DME) Syringes: 1cc Insulin Syringes with [place] 0 .Route .MEDSUPPLY Qty: 100 RF: 3 (DME) Glucose: Test Strips See Rx Instructions .Route .MEDSUPPLY Qty: 100 RF: 6 Novolog U-100 Insulin aspart 100 unit/mL solution 15 unit SUBCUT QAC Qty: 2 RF: 12 aspirin 81 mg tablet,delayed release (DR/EC) 2 tab PO DAILY RF: 0 docusate sodium 250 mg capsule 250 mg PO DAILY PRN (Reason: Constipation) RF: 0 rosuvastatin 20 mg tablet 20 mg PO DAILY RF: 0 esomeprazole magnesium [Nexium] 40 mg capsule,delayed release(DR/EC) 40 mg PO DAILY RF: 0 losartan 25 mg tablet 25 mg PO DAILY RF: 0 Lantus U-100 Insulin 57 units subcut DAILY RF: 0 nystatin 100,000 unit/gram cream 1 applictn TOP BID PRN (Reason: Rash) RF: 0 gabapentin [Neurontin] 600 mg Tablet 600 mg PO BID Qty: 60 RF: 0 Referrals: Pb Montero MD [Primary Care Provider] -
[2019-08-27 14:00] VITALS: BP 168/74; PULSE 95; RESP 18; O2SAT 98
--- NOTE | 2019-08-27 15:13 | DI.US.S_ITS ---
PROCEDURE: US SCROTUM INDICATIONS: PAIN TECHNIQUE: Real-time scanning was performed of the scrotum and testicles, with image documentation. Color and pulse Doppler interrogation was performed of both testicles. COMPARISON: None. FINDINGS: Right: Testicle is normal in size at 4.0 x 2.3 x 2.9 cm, and homogenous in echotexture. Epididymis is not well seen. No hydrocele or varicoceles. Overlying scrotal skin is mildly thickened. Left: Testicle is normal in size at 3.5 x 2.2 x 3.3 cm, and homogeneous in echotexture. Epididymis is not well seen.. No hydrocele or varicoceles. Overlying scrotal skin is mildly thickened. Doppler: Color and pulse Doppler demonstrate normal and symmetric arterial flow in both testicles. IMPRESSION: Mild bilateral scrotal wall thickening. Recommend correlation potential superficial infection or edema. Dictated by: Gina Valente M.D. on 08/27/2019 at 17:48 Approved by: Gina Valente M.D. on 08/27/2019 at 17:50
[2019-08-27 16:42] VITALS: BP 158/90; PULSE 118; RESP 18; O2SAT 95
[2019-08-27] MEDS: SODIUM CHLORIDE 0.9% 1,000 ML 1000 ML IV (16:58)
[2019-08-27 19:15] VITALS: BP 162/102; PULSE 98; RESP 18; O2SAT 96
--- NOTE | 2019-08-27 19:27 | PC.NURSE ---
Guaiac completed by provider
== END 2019-08-27 19:15 | disposition home or self-care (01) ==
PROVIDERS: Emergency Medicine; Emergency Provider Nurse Practitioner Family; PCP Student in an Organized Health Care Education/Training Program
DX: R10.84 Generalized abdominal pain (principal); R33.9 Retention of urine, unspecified; N50.82 Scrotal pain
CPT/HCPCS: 36415; 76870; 80053; 82272; 85025; 85610; 85730; 86850; 86900; 86901; 96360; 96361; 99283; 99284

== ENCOUNTER → 2019-09-02 15:14 | Outpatient (CLI) | payer OTHER, SELFPAY ==
[2019-02-15 22:36] VITALS: BMI 40.7
[2019-09-02 16:07] LABS: B Type Natriuretic Peptide 235 (<100)
[2019-09-02 16:34] LABS: HEMOLYSIS < 15 (0-50); Hemoglobin A1C% w Est Avg Glu 8.9 % (4.0-6.0); Iron 48 ug/dL (49-181)
[2019-09-02 16:44] LABS: Percent Iron Saturation 14 % (20-50); Total Iron Binding Capacity 344 ug/dL (261-462); Transferrin 276 mg/dL (206-381)
[2019-09-02 16:50] LABS: Hematocrit 39.7 % (41-53); Hemoglobin 13.2 g/dL (13.5-17.5); Mean Corpuscular HGB Conc 33.2 % (30-36); Mean Corpuscular Hemoglobin 29.3 PG (26-34); Mean Corpuscular Volume 88.3 fL (80-100); Platelet Count 172 X10^3/uL (150-400); Red Blood Cell Count 4.49 X10^6/uL (4.5-5.9); Red Cell Distribution Width 14.5 % (11.6-14.8); White Blood Cell Count 5.4 X10^3/uL (4.5-11.0)
== END ==
PROVIDERS: PCP Student in an Organized Health Care Education/Training Program; Visit Provider Student in an Organized Health Care Education/Training Program
DX: R60.9 Edema, unspecified (principal); E10.65 Type 1 diabetes mellitus with hyperglycemia; I10 Essential (primary) hypertension; R10.9 Unspecified abdominal pain; E11.65 Type 2 diabetes mellitus with hyperglycemia; D64.9 Anemia, unspecified; K92.1 Melena
CPT/HCPCS: 36415; 83036; 83540; 83550; 83880; 85027

== ENCOUNTER → 2019-09-20 07:37 | Outpatient (CLI) | payer OTHER, SELFPAY ==
[2019-02-15 22:36] VITALS: BMI 40.7
--- NOTE | 2019-09-20 07:39 | DI.ECHO.S_ITS ---
[facility]---------+ [facility] +---------+ : : [address] : : : : [id number] : : : : Phone: [phone] Echocardiogram Report + + :Name: JANETTE ADKINS Study Date: 09/20/2019 Height: 72 in : :[facility] Exam Location: IS Weight: 240 lb : : Gender: Male BSA: 2.3 m2 : :: 1945 Age: 73 yrs BP: 127/82 mmHg: :Reason For Study: H/O right heart failure/ Pulm HTN/ Scrotal : :edema : : Performed By: Swathi Page : :Referring: ROSEANN SANON : + + Interpretation Summary The ejection fraction is estimated to be 50-55%. There has been no significant change since the previous exam. The right ventricle is mildly dilated. Right ventricular systolic function is moderately reduced. There is moderate biatrial enlargement. There is mild tricuspid regurgitation. The right ventricular systolic pressure is estimated to be at least 59 mmHg based on an estimated right atrial pressure of 15 mm Hg. Procedure: A two-dimensional transthoracic echocardiogram with color flow and Doppler was performed. Comparison is made with the echocardiogram of 02/16/2019. A contrast injection of Definity was performed to improve assessment of LV function. The study quality was technically difficult. The patient was in atrial fibrillation with heart rates between 68-85 bpm during the exam. Left Ventricle: The left ventricle is normal in size. Left ventricular wall thickness is at the upper limits of normal. The ejection fraction is estimated to be 50-55%. There has been no significant change since the previous exam. There are no obvious focal wall motion abnormalities noted but poor endocardial definition reduces the sensitivity for the detection of such. Diastolic function could not be accurately assessed due to atrial fibrillation. Right Ventricle: The right ventricle is mildly dilated. Right ventricular systolic function is moderately reduced. Atria: There is moderate biatrial enlargement. There is no Doppler evidence for an interatrial shunt. Mitral Valve: The mitral valve leaflets appear mildly thickened, but open well. There is mild mitral annular calcification. There is mild mitral regurgitation. Aortic Valve: The aortic valve is not well visualized. The aortic valve opens well. There is discrete nodular thickening of the non- coronary cusp. There is no hemodynamically significant valvular aortic stenosis. No aortic regurgitation is present. Tricuspid Valve: The tricuspid valve is normal in structure and function. There is mild tricuspid regurgitation. The right ventricular systolic pressure is estimated to be at least 59 mmHg based on an estimated right atrial pressure of 15 mm Hg. Compared to the prior echo exam, there has been an increase in the severity of pulmonary hypertension. Pulmonic Valve: The pulmonic valve is not well visualized. There is trace pulmonic regurgitation. Great Vessels: The aortic root is normal size. The ascending aorta is mildly enlarged. The pulmonary artery is not well visualized, but is probably normal size. The IVC is dilated (diameter is greater than 2.1 cm) and it collapses less than 50% with a sniff. This suggests a high right atrial pressure of 15 mm Hg. Pericardium/ Pleura There is no pericardial effusion. There is no pleural effusion. MMode/2D Measurements & Calculations LVIDd: 5.7 cm LVOT diam: 2.3 cm LVIDs: 4.6 cm Ao root diam: 3.6 cm FS: 18.1 % asc Aorta Diam: 3.5 cm EPSS: 1.1 cm IVSd: 1.0 cm LVPWd: 1.0 cm LV guzmán. diameter/BSA (cm/m^2): 2.5 LV sys. diameter/BSA (cm/m^2): 2.0 LA A2 area: 26.7 cm2 RA long axis: 5.8 cm LA A4 area: 32.1 cm2 RA area: 23.6 cm2 LA length (vol): 7.1 cm RA vol: 81.6 ml LA vol: 102.6 ml RA : 35.4 ml/m2 LA vol index: 44.6 ml/m2 IVC diam: 2.9 cm RVD1 (basal): 4.7 cm RVD2 (mid): 4.2 cm Doppler Measurements & Calculations Ao V2 max: 80.6 cm/sec LVOT Max Kendell: 54.6 cm/sec Ao V2 mean: 56.4 cm/sec LV V1 max P.2 mmHg Ao max P.6 mmHg LV V1 VTI: 11.4 cm Ao mean P.4 mmHg STIVEN(I,D): 2.6 cm2 Ao V2 VTI: 18.1 cm STIVEN(V,D): 2.8 cm2 sev ratio: 0.63 STIVEN indexed to BSA (cm^2/m^2): 1.1 MV E max kendell: 109.1 cm/sec TR max kendell: 332.6 cm/sec MV P1/2t: 38.2 msec TR max P.3 mmHg PA V2 max: 62.4 cm/sec PA V2 mean: 42.3 cm/sec PA mean P.79 mmHg PA Accel Time: 0.07 sec MV 2t max kendell: 107.4 cm/sec SV(LVOT): 46.7 ml MVA(2t): 5.8 cm2 Reading Physician:12:42 PM
== END ==
PROVIDERS: PCP Student in an Organized Health Care Education/Training Program; Visit Provider Student in an Organized Health Care Education/Training Program
DX: I08.1 Rheumatic disorders of both mitral and tricuspid valves (principal); I27.20 Pulmonary hypertension, unspecified; I50.9 Heart failure, unspecified; I77.89 Other specified disorders of arteries and arterioles; R60.9 Edema, unspecified
CPT/HCPCS: 93306; Q9957

== ENCOUNTER → 2020-07-31 12:19 | Outpatient (CLI) | payer OTHER, SELFPAY ==
[2019-11-01 13:47] VITALS: BMI 40.7
[2020-07-31 14:23] LABS: Add Manual Diff / Slide Review NO; Basophils Absolute Auto 0 /uL (0-100); Basophils Percent Auto 0.5 % (0-2); Eosinophils Absolute Auto 200 /uL (0-450); Eosinophils Percent Auto 2.1 % (2-4); Hematocrit 40.8 % (41-53); Hemoglobin 13.8 g/dL (13.5-17.5); Hemoglobin A1C% w Est Avg Glu 8.5 % (4.0-6.0); Lymphocytes Absolute Auto 2600 /uL (1100-4500); Lymphocytes Percent Auto 30.5 % (25-40); Mean Corpuscular HGB Conc 33.8 % (30-36); Mean Corpuscular Hemoglobin 28.1 PG (26-34); Mean Corpuscular Volume 83.3 fL (80-100); Monocytes Absolute Auto 600 /uL (0-900); Monocytes Percent Auto 7.3 % (3-14); Neutrophils Absolute Auto 5200 /uL (1500-7000); Neutrophils Percent Auto 59.6 % (50-75); Platelet Count 184 X10^3/uL (150-400); Red Cell Distribution Width 13.2 % (11.6-14.8); White Blood Cell Count 8.7 X10^3/uL (4.5-11.0)
[2020-07-31 14:26] LABS: Alanine Aminotransferase 19 IU/L (<50); Albumin 4.2 g/dL (3.5-5.0); Albumin Globulin Ratio 1.3 (1.0-2.8); Alkaline Phosphatase 101 U/L (38-126); Aspartate Aminotransferase 28 IU/L (17-59); BUN Creatinine Ratio 27.8 (6-22); Bilirubin Total 0.7 mg/dL (0.2-1.3); Blood Urea Nitrogen 25 mg/dL (9-20); Calcium 9.6 mg/dL (8.4-10.2); Carbon Dioxide 29 mmol/L (22-32); Chloride 101 mmol/L (98-107); Estimated Glomerular Filt Rate > 60.0 mL/min (>60); Globulin 3.2 g/dL (1.7-4.1); HEMOLYSIS < 15 (0-50); Sodium 140 mmol/L (137-145); Total Protein 7.4 g/dL (6.3-8.2)
[2020-07-31 14:28] LABS: Glucose 45 mg/dL (80-110)
[2020-07-31 14:43] LABS: Free T4, Direct Thyroxine 1.44 ng/dL (0.78-2.19)
[2020-07-31 14:57] LABS: Thyroid Stimulating Hormone 0.985 uIU/mL (0.47-4.68)
[2020-07-31 15:28] LABS: Creatinine Urine Random 25.2 mg/dL
[2020-07-31 15:32] LABS: Microalbumi Creatinin Ratio Ur 27.7 ug/mg CR (<30); Microalbumin Urine Random 0.7 mg/dL (0-1.6)
== END ==
PROVIDERS: PCP Internal Medicine; Referring Provider Internal Medicine; Visit Provider Internal Medicine
DX: D64.9 Anemia, unspecified (principal); E03.9 Hypothyroidism, unspecified; E11.69 Type 2 diabetes mellitus with other specified complication; E78.5 Hyperlipidemia, unspecified; I10 Essential (primary) hypertension; I25.810 Atherosclerosis of coronary artery bypass graft(s) without angina pectoris; I48.91 Unspecified atrial fibrillation
CPT/HCPCS: 36415; 80053; 82043; 82570; 83036; 84153; 84439; 84443; 85025

== ENCOUNTER → 2020-11-16 14:04 | Outpatient (CLI) | payer OTHER, SELFPAY ==
[2019-11-01 13:47] VITALS: BMI 40.7
--- NOTE | 2020-11-16 14:06 | DI.RAD.S_ITS ---
PROCEDURE: XR LUMBAR SPINE 2-3V INDICATIONS: Back pain with radiating knee pain TECHNIQUE: 3 views of the lumbar spine were acquired. COMPARISON: [facility] [place], [facility], XR LUMBAR SPINE 2 OR 3 VIEWS, 09/09/2018, 10:06. FINDINGS: Bones: No fracture. Multilevel degenerative endplate sclerosis and spurring. Diffuse facet arthropathy. Levocurvature is noted. Bilateral hip joint degeneration. Sacroiliac sclerosis and spurring. Grade 1 retrolisthesis of L1 on L2 and L2 on L3. Moderate narrowing of the L2-L3 and L3-L4 disc spaces. Mild narrowing of the remaining lumbar disc spaces. Soft tissues: Overlying bowel gas pattern is normal. No suspicious soft tissue calcifications. Scattered vascular calcifications seen in the aorta. IMPRESSION: Diffuse lumbar spondylosis and facet arthropathy. No definite interval change since 09/09/18 Multilevel spondylolisthesis as above. Levocurvature Dictated by: Mitch Roldan M.D. on 11/16/2020 at 14:49 Approved by: Mitch Roldan M.D. on 11/16/2020 at 14:51
== END ==
PROVIDERS: PCP Internal Medicine; Referring Provider Internal Medicine; Visit Provider Internal Medicine
DX: M54.9 Dorsalgia, unspecified (principal); M25.569 Pain in unspecified knee; M47.816 Spondylosis without myelopathy or radiculopathy, lumbar region; M43.16 Spondylolisthesis, lumbar region
CPT/HCPCS: 72100

== ENCOUNTER → 2020-12-04 12:55 | Outpatient (CLI) | payer OTHER, SELFPAY ==
[2019-11-01 13:47] VITALS: BMI 40.7
--- NOTE | 2020-12-04 12:56 | DI.MRI.S_ITS ---
PROCEDURE: MR PELVIS WO CON INDICATIONS: sacral fx, spinal stenosis TECHNIQUE: Noncontrast coronal and axial T1 spin echo and STIR through the bony pelvis. COMPARISON: None. FINDINGS: Image quality: Excellent. Bones: Bone marrow of the pelvic ring, sacrum, and proximal femurs show normal signal throughout. No intraosseous lesions or fractures identified. The visualized lower lumbar spine appears normally aligned. Tendons: The gluteus medius and minimus tendons appear intact, without associated muscle atrophy. The nearby proximal iliotibial band also appears intact. The iliopsoas tendon appears intact, without adjacent bursal fluid collections or evidence for impingement syndrome. The origin of the hamstring tendon is intact at the ischial tuberosity, as well as the associated sacrotuberous ligament. The straight and reflected heads of the rectus femoris muscle origin appear intact, as well as the conjoint tendon. Soft tissues: Visualized muscles demonstrate normal bulk and internal signal except in the area dorsal to the low sacrum and sacrococcygeal junction where symmetric edema tracks within the soft tissues peripherally, not associated with underlying bone bruising or fracture.. No joint effusions. No free pelvic fluid. Bladder wall thickness is normal. Genitourinary structures and bowel loops appear normal where visualized. IMPRESSION: Relatively prominent soft tissue edema dorsal to the low sacrum and sacrococcygeal junction indicating soft tissue injury, without muscular tear, hematoma, or underlying bone bruising or fracture. Dictated by: Saul Marie M.D. on 12/04/2020 at 15:49 Approved by: Saul Marie M.D. on 12/04/2020 at 15:51
== END ==
PROVIDERS: PCP Internal Medicine; Referring Provider Physical Medicine & Rehabilitation; Visit Provider Physical Medicine & Rehabilitation
DX: M53.3 Sacrococcygeal disorders, not elsewhere classified (principal); S32.12 Zone II fracture of sacrum
CPT/HCPCS: 72195

== ENCOUNTER 2020-12-14 17:14 | Emergency (ER) | payer OTHER, SELFPAY ==
[2019-11-01 13:47] VITALS: BMI 40.7
[2020-12-14 17:19] VITALS: BP 192/82; PULSE 91; RESP 16; TEMP 36.7; O2SAT 99
[2020-12-14 17:46] VITALS: PULSE 86; O2SAT 97
[2020-12-14 18:00] VITALS: BP 152/73; PULSE 82; O2SAT 96
--- NOTE | 2020-12-14 18:04 | ED.SKABFB ---
HPI - Skin/Abscess/Foreign Bdy General Chief complaint: Skin/Abscess/Foreign Body Stated complaint: cat scratch to rt arm, swelling Time Seen by Provider: 12/14/20 18:03 Source: patient Mode of arrival: Ambulatory Limitations: no limitations History of Present Illness HPI narrative: 74M nonsmoker with history of DM and use of blood thinners presents with ongoing pain and swelling in his R elbow in the flexor surface in the region of a cat scratch many weeks ago. There is pain, swelling, and localized redness. He denies any systemic findings such as fever, chills nor nausea or vomiting. He states he has pain with motion and palpation. Denies any red streaks. He denies any runny nose, sore throat or cough. He denies any history of skin infections. He states that after the scratch there was a period of redness and swelling that got better and now has returned. MD complaint: abscess/boil Onset (ago): day(s) Tetanus up to date: yes Location: RUE Severity: mild Quality: aching Pain Consistency: constant Relieving factors: immobilization Exacerbating factors: palpation Context: none Associated symptoms: denies other symptoms Treatments prior to arrival: none Related Data Home Medications Medication Instructions Recorded Confirmed aspirin 2 tab PO DAILY 09/16/18 11/20/20 apixaban 5 mg tablet 5 mg PO BID 10/29/19 11/20/20 Previous Rx's Medication Instructions Recorded Syringes: 1cc Insulin Syringes #100 each 02/23/20 with [place] insulin human U-100 NPH-regulr 30 unit SUBCUT BID #20 ml 06/19/20 70-30 mix 100 unit/mL subcutaneous susp pantoprazole 40 mg tablet,delayed 40 mg PO DAILY #90 tab 07/11/20 release levothyroxine 175 mcg tablet 175 mcg PO DAILY #90 tab 09/21/20 rosuvastatin 20 mg tablet 20 mg PO DAILY #90 tab 10/06/20 tamsulosin 0.4 mg capsule See Rx Instructions .ROUTE 10/06/20 .COMPLEX #90 cap metoprolol tartrate 100 mg tablet See Rx Instructions .ROUTE 10/16/20 .COMPLEX #180 tablet furosemide 20 mg tablet 20 mg PO QDAY #90 tab 10/20/20 losartan 25 mg tablet 25 mg PO DAILY #90 tab 10/20/20 Glucose: Test Strips #250 ea 12/04/20 doxycycline hyclate 100 mg PO BID #20 tab 12/14/20 Allergies Allergy/AdvReac Type Severity Reaction Status Date / Time adhesive tape [ADHESIVE TAPE] AdvReac Mild PATIENT Verified 12/14/20 17:19 STATES IT PEELS HIS SKIN OFF lisinopril [LISINOPRIL] AdvReac Mild COUGH Verified 12/14/20 17:19 prochlorperazine AdvReac Unknown Verified 12/14/20 17:19 [PROCHLORPERAZINE] shellfish derived AdvReac Unknown Verified 12/14/20 17:19 [SHELLFISH DERIVED] Review of Systems Constitutional Constitutional: Reports system reviewed and no additional complaints, except as documented, Denies chills, Denies daytime sleepiness, Denies fatigue and Denies fever(s) Eyes Eyes: Denies blurry vision ENT Ears, Nose, Mouth, and Throat: Denies vertigo Cardiovascular Cardiovascular: Denies chest pain, Denies rapid heart rate and Denies dyspnea Respiratory Respiratory: Denies cough and Denies dyspnea Gastrointestinal Gastrointestinal: Denies abdominal pain, Denies nausea and Denies vomiting Musculoskeletal Musculoskeletal: Denies arthralgias, Denies joint swelling and Denies numbness Integumentary/Breasts Skin/Breast: Reports furuncle, Reports erythema, Reports skin pain and Reports skin swelling Neurologic Neurologic: Denies vertigo, Denies localized weakness, Denies numbness and Denies radicular pain Endocrine Endocrine: Denies fatigue Hematologic/Lymphatic Hematologic/Lymphatic: Denies lymphadenopathy Patient History Medical History Atrial fibrillation (Unknown) Carotid artery disease (Unknown) Coronary artery disease (Unknown) Diabetes (Unknown) Diabetes, type 1.5, controlled, managed as type 2 Diabetes, type 1.5, uncontrolled, managed as type 2 Erectile dysfunction (Unknown) GERD (gastroesophageal reflux disease) (Unknown) Hepatitis C (Unknown) Hx of drug abuse Hyperlipemia (Unknown) Hypertension (Unknown) Hypothyroidism (Unknown) Measles (Unknown) Myocardial infarct (10/17/06) Obstructive sleep apnea (Unknown) Peripheral vascular disease (Unknown) Sacral back pain Sacral fracture, closed Surgical History History of open reduction and internal fixation (ORIF) procedure (09/2010) History of penile implant Hx of cataract surgery (~2004) Hx of coronary artery bypass surgery (10/2006) S/P bilateral below knee amputation (Unknown) Family History Father Age: 85 Heart disease ETOH abuse Mother Age: 93 Heart disease Alzheimer's dementia without behavioral disturbance, Alzheimer's disease of unspecified onset Social History household members: spouse Smoking Status: Never smoker alcohol intake: never substance use type: does not use Smoking Status: Never smoker alcohol intake frequency: holidays/special occasions only Substance Use Type: does not use and marijuana Exam Narrative Exam Narrative: GEN: AOx3 and in mild distress EYES: Pupils are equal, round, and reactive to light and accommodation. Extraoccular muscles are intact bilaterally. There is no subconjunctival hemorrhage or exudate. CHEST: Lungs are clear to auscultation bilaterally and free of wheezes, rales, or rhonchi. Heart rate is regular rhythm, there are no murmurs, clicks, rubs, or gallops. There is no chest wall tenderness. ABD: Abdomen is soft and nontender. There is no guarding or rebound. Bowel sounds are normal in all 4 quadrants. There is no mass or organomegaly. EXT: Full but painful ROM of RUE at elbow, no numbness, tingling or weakness. SKIN: 1x2cm fluctuance in R AC with minimal surrounding erythema and induration. No lymphangitis. Otherwise warm, pink, and dry. 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 Orders Ordered: ED Orders 12/14/20 18:16 XR elbow RT min 3V Stat 12/14/20 19:11 Wound Culture and Gram Stain Stat Discontinued Medications Doxycycline Hyclate (Doxycycline Hyclate 100 Mg Tablet) 100 mg PO NOW ONE Stop: 12/14/20 19:12 Last Admin: 12/14/20 19:18 Dose: 100 mg Documented by: SANDY Lidocaine/Sodium Bicarbonate (Lido 1%/Sod Bicarb 8.4% (10ml) 10 Ml Syringe) 10 ml INJ NOW ONE Stop: 12/14/20 18:58 Last Admin: 12/14/20 19:18 Dose: 10 ml Documented by: SANDY Vital Signs Vital signs: Vital Signs - 8 hr 12/14/20 18:30 12/14/20 19:00 12/14/20 19:01 Pulse Rate 84 75 77 Blood Pressure 155/70 H 174/79 H Pulse Oximetry 96 99 98 MDM - Skin/Abscess/Foreign Bdy Imaging Data Extremity x-ray #1: Radiologist's Impression: Aracelis Yicynthia Schwarz 74 M [address] [id number] ReportSigned Patient: Tulio Yi LMR#: [id number]: [id number]:[id number]/Sex: 74 / MDate of Service: 12/14/20Loc: EDAccession Number: [id number] Procedure: XR elbow RT min 3V Ordering Provider: Murtaza Watson D.O. PROCEDURE: XR ELBOW RT MIN 3V INDICATIONS: possible retained foreign body TECHNIQUE: 3 views of the elbow were acquired. COMPARISON: None. FINDINGS: Bones: No fractures or dislocations. No suspicious bony lesions. Soft tissues: No elbow joint effusion. No suspicious soft tissue calcifications. Vascular calcifications. IMPRESSION: No radiopaque foreign body. Dictated by: Patrick Mendoza M.D. on 12/14/2020 at 18:52 Approved by: Patrick Mendoza M.D. on 12/14/2020 at 18:53 Discharge Plan Departure Patient Disposition: Home Clinical Impression: Abscess Instructions: DI for Wound Infection, DI for Skin Abscess Activity Restrictions/Additional Instructions: *You have been diagnosed with [right elbow abscess] *What to do: *Take medications as directed: Prescription sent to [facility] at your request *Follow up with your primary care provider in 2-3 days, call for an appointment. Let them know you were seen in the Emergency Department and that we ask that you be seen in follow up *Return to ER if you should have any new, worsening or concerning symptoms, such as [increasing pain, redness, red streaks, fever, chills or other bothersome symptoms] Prescriptions: New doxycycline hyclate 100 mg tablet 100 mg PO BID Qty: 20 RF: 0 No Action apixaban 5 mg tablet 5 mg PO BID RF: 0 (DME) Syringes: 1cc Insulin Syringes with [place] 0 .Route .MEDSUPPLY Qty: 100 RF: 3 Novolin 70/30 U-100 Insulin 100 unit/mL (70-30) suspension 30 unit SUBCUT BID Qty: 20 RF: 11 pantoprazole 40 mg tablet,delayed release (DR/EC) 40 mg PO DAILY Qty: 90 RF: 1 levothyroxine 175 mcg tablet 175 mcg PO DAILY Qty: 90 RF: 3 tamsulosin 0.4 mg capsule See Rx Instructions .ROUTE .COMPLEX Qty: 90 RF: 0 rosuvastatin 20 mg tablet 20 mg PO DAILY Qty: 90 RF: 0 metoprolol tartrate 100 mg tablet See Rx Instructions .ROUTE .COMPLEX Qty: 180 RF: 3 furosemide 20 mg tablet 20 mg PO QDAY Qty: 90 RF: 3 losartan 25 mg tablet 25 mg PO DAILY Qty: 90 RF: 3 (DME) Glucose: Test Strips See Rx Instructions .Route .MEDSUPPLY Qty: 250 RF: 6 aspirin 81 mg tablet,delayed release (DR/EC) 2 tab PO DAILY RF: 0 Referrals: Bora Little MD [Primary Care Provider] -
--- NOTE | 2020-12-14 18:16 | DI.RAD.S_ITS ---
PROCEDURE: XR ELBOW RT MIN 3V INDICATIONS: possible retained foreign body TECHNIQUE: 3 views of the elbow were acquired. COMPARISON: None. FINDINGS: Bones: No fractures or dislocations. No suspicious bony lesions. Soft tissues: No elbow joint effusion. No suspicious soft tissue calcifications. Vascular calcifications. IMPRESSION: No radiopaque foreign body. Dictated by: Patrick Mendoza M.D. on 12/14/2020 at 18:52 Approved by: Patrick Mendoza M.D. on 12/14/2020 at 18:53
[2020-12-14 18:30] VITALS: BP 155/70; PULSE 84; O2SAT 96
[2020-12-14 19:00] VITALS: PULSE 75; O2SAT 99
[2020-12-14 19:01] VITALS: BP 174/79; PULSE 77; O2SAT 98
[2020-12-14] MEDS: DOXYCYCLINE HYCLATE 100 MG TABLET PO (19:18)
[2020-12-14] MEDS: LIDO 1%/SOD BICARB 8.4% (10ML) 10 ML SYRINGE INJ (19:18)
--- NOTE | 2020-12-14 19:35 | PC.NURSE ---
Dressing placed to abscess site at right AC. Called [employer] for ride home per pt request, ETA 30 min.
== END 2020-12-14 19:38 | disposition home or self-care (01) ==
PROVIDERS: Emergency Provider Emergency Medicine; PCP Internal Medicine
DX: L02.413 Cutaneous abscess of right upper limb (principal); W55.03XA Scratched by cat, initial encounter; I48.91 Unspecified atrial fibrillation; I25.10 Atherosclerotic heart disease of native coronary artery without angina pectoris; I10 Essential (primary) hypertension; E78.5 Hyperlipidemia, unspecified; E03.9 Hypothyroidism, unspecified
CPT/HCPCS: 10060; 73080; 87070; 87075; 87077; 87205; 99281; 99283

== ENCOUNTER → 2020-12-18 09:28 | Outpatient (CLI) | payer OTHER, SELFPAY ==
[2019-11-01 13:47] VITALS: BMI 40.7
[2020-12-18 11:15] LABS: Hemoglobin A1C% w Est Avg Glu 8.7 % (4.0-6.0)
[2020-12-18 11:31] LABS: BUN Creatinine Ratio 29.2 (6-22); Blood Urea Nitrogen 21 mg/dL (9-20); Calcium 9.4 mg/dL (8.4-10.2); Carbon Dioxide 29 mmol/L (22-32); Chloride 100 mmol/L (98-107); Estimated Glomerular Filt Rate > 60.0 mL/min (>60); Glucose 426 mg/dL (80-110); HEMOLYSIS < 15 (0-50); Potassium 4.6 mmol/L (3.4-5.1); Sodium 136 mmol/L (137-145)
== END ==
PROVIDERS: PCP Internal Medicine; Referring Provider Internal Medicine; Visit Provider Internal Medicine
DX: E13.65 Other specified diabetes mellitus with hyperglycemia (principal)
CPT/HCPCS: 36415; 80048; 83036

== ENCOUNTER → 2021-01-01 08:19 | Outpatient (CLI) | payer OTHER, SELFPAY ==
[2020-12-20 13:40] VITALS: BMI 40.7
[2021-01-01 09:29] LABS: COVID19 -Nasal RAPID Negative (Negative)
== END ==
PROVIDERS: PCP Internal Medicine; Visit Provider Physical Medicine & Rehabilitation
DX: Z20.822 Contact with and (suspected) exposure to COVID-19 (principal)
CPT/HCPCS: 87635; C9803

== ENCOUNTER 2021-01-02 07:50 | Outpatient (CLI) | payer OTHER, SELFPAY ==
[2020-12-20 13:40] VITALS: BMI 40.7
[2021-01-02] VITALS (7 sets, daily range): BP systolic 134–189; BP diastolic 68–122; PULSE 79–95; RESP 14–20; TEMP 36.9; O2SAT 96–99
--- NOTE | 2021-01-02 07:51 | DI.RAD.S_ITS ---
PROCEDURE: PAIN SI JOINT INJECTION INDICATIONS: SACROCOCCYGEAL DISORDER COMPARISON: [facility], CR, XR LUMBAR SPINE 2-3V, 11/16/2020, 14:08. FINDINGS: On this intraprocedural image, there is a spinal needle seen overlying the inferior aspect of the left sacroiliac joint. The appropriate position of the tip of the needle is confirmed with injection of a small amount iodinated contrast. IMPRESSION: Intraprocedural examination within normal limits. Dictated by: Aly Goff M.D. on 01/02/2021 at 8:34 Approved by: Aly Goff M.D. on 01/02/2021 at 8:35
[2021-01-02] MEDS: MIDAZOLAM 5 MG/5 ML VIAL IV (08:52)
[2021-01-02] MEDS: BUPIVACAINE 0.5% (PF) VIAL 2 ML INJ (08:54)
[2021-01-02] MEDS: BETAMETHASONE 30 MG/5 ML MDV 12 MG INJ (08:54)
[2021-01-02] MEDS: IOPAMIDOL 15 ML VIAL 3 ML INJ (08:54)
--- NOTE | 2021-01-02 09:04 | PM.PROC.IR.1 ---
Date/Time/Diagnoses Date of procedure: 01/02/21 Time of procedure: 09:04 Pre-procedure diagnosis: Sacroiliac Joint Pain/DJD Post-procedure diagnosis: same Procedure Notes Procedure: Fluoroscopically guided contrast controlled left sacroiliac joint injection Indications: Tulio Pham is referred by Dr. Little for treatment of left sacroiliac joint DJD Physician: Scott Coburn Total Fluoroscopy time (seconds): 7 Total sedation minutes: 7 Complications: none Procedure in detail & Post-procedure care: DESCRIPTION OF PROCEDURE Fluoroscopic guided, contrast controlled left sacroiliac joint injection Following review of allergies and review of potential side effects and complications, including, but not necessarily limited to, infection, allergic reaction, local tissue breakdown, temporary as well as permanent nerve injury, paralysis, stroke and possible , the patient indicated that they understood and agreed to proceed. An informed consent was signed by the patient, witnessed by a nurse, and placed in the patient's chart. Additionally, other treatment options including modalities, medications, and physical therapy were reviewed with the patient. After review of previous anaesthesic history and IV conscious sedation the patient was deemed safe to proceed with today?s procedure with IV conscious sedation as ASA class II designation. Safety time-out was performed to confirm patient ID, procedure to be performed and site of procedure. IV sedation was accomplished with a combination of 2mg of Versed administered by the RN after DO order, titrated to patient comfort during the course of the procedure while the patient remained responsive to all verbal commands. In the prone position following sterile prep and drape of the pelvic region, the hyper lucency on in the inferior aspect of the left sacroiliac joint was identified fluoroscopically the skin was anesthetized be a 25 gauge 1 eventual with approximately 2cc of 1% lidocaine solution. At this point, a 22 gauge 3inch spinal needle was atraumatically introduced and advanced under fluoroscopic guidance into the inferior aspect of the left sacroiliac joint. Following negative aspiration, approximately 0.3cc of [id number]-300 was injected confirming intra-articular placement without vascular uptake. Radiographic data, including multiple fluoroscopic views of the pelvis, reveals a spinal needle in the left sacroiliac joint hyper lucent zone. Subsequent view show flow contrast tear superiorly and inferiorly within the joint capsule without vascular intrathecal uptake. At this point a total of 1cc or 0.5% Marcaine was combined with 1cc of 6mg of betamethasone was injected without incident. The patient tolerated the procedure well without signs or symptoms of complications prior to transfer to the recovery area for further monitoring. The patient was then transferred to the recovery area with a bur observed for an appropriate time after the injection. The patient reverted a vas score of 7 prior to the procedure and postprocedure vas of 1. POSTOP INSTRUCTIONS The patient was provided with a pain like to continue to record the patient's response to the target specific procedure prior to the patient's follow-up visit with the referring physician. Additionally, specific post injection care instructions and a contact number to our office were provided if concerns arise regarding the possible complications associated with procedure are suspected.
== END 2021-01-02 09:29 | disposition home or self-care (01) ==
PROVIDERS: PCP Internal Medicine; Referring Provider Internal Medicine; Visit Provider Physical Medicine & Rehabilitation
DX: M53.3 Sacrococcygeal disorders, not elsewhere classified (principal); M46.1 Sacroiliitis, not elsewhere classified
CPT/HCPCS: 27096; J0702; J2250; J3010

== ENCOUNTER 2021-01-09 14:52 | Emergency (ER) | payer OTHER, SELFPAY ==
[2020-12-20 13:40] VITALS: BMI 40.7
[2021-01-09 15:00] VITALS: BP 170/87; PULSE 95; RESP 16; TEMP 36.3; O2SAT 98
--- NOTE | 2021-01-09 15:14 | ED.BACK ---
HPI - Back Pain/Injury <Malathi Us, [employer]-BC - Last Filed: 01/09/21 16:17> General Chief Complaint: Back Pain/Injury Stated Complaint: SEVERE BACK PAIN Time Seen by Provider: 01/09/21 15:01 Source: patient Limitations: no limitations History of Present Illness HPI Narrative: The patient is a 75-year-old male nonsmoker with history of hyperlipidemia, diabetes, sacral fracture and AFib on Eliquis who presents with a chief complaint of sudden severe lower back pain today. He has history of low back pain, received a steroid injection from Dr. Coburn to his back last week and today felt sudden severe pain and ?I feel like shit.He denies any numbness or tingling. Denies any incontinence of bowel or incontinence of bladder but states he ?needs to take a shit. Related Data Home Medications Medication Instructions Recorded Confirmed aspirin 2 tab PO DAILY 09/16/18 12/18/20 apixaban 5 mg tablet 5 mg PO BID 10/29/19 12/18/20 Previous Rx's Medication Instructions Recorded Syringes: 1cc Insulin Syringes #100 each 02/23/20 with Dodson insulin human U-100 NPH-regulr 30 unit SUBCUT BID #20 ml 06/19/20 70-30 mix 100 unit/mL subcutaneous susp pantoprazole 40 mg tablet,delayed 40 mg PO DAILY #90 tab 07/11/20 release levothyroxine 175 mcg tablet 175 mcg PO DAILY #90 tab 09/21/20 rosuvastatin 20 mg tablet 20 mg PO DAILY #90 tab 10/06/20 tamsulosin 0.4 mg capsule See Rx Instructions .ROUTE 10/06/20 .COMPLEX #90 cap metoprolol tartrate 100 mg tablet See Rx Instructions .ROUTE 10/16/20 .COMPLEX #180 tablet furosemide 20 mg tablet 20 mg PO QDAY #90 tab 10/20/20 losartan 25 mg tablet 25 mg PO DAILY #90 tab 10/20/20 Glucose: Test Strips #250 ea 12/04/20 doxycycline hyclate 100 mg PO BID #20 tab 12/14/20 hydrocodone-acetaminophen 1 tab PO Q6H PRN #10 tab 01/09/21 Allergies Allergy/AdvReac Type Severity Reaction Status Date / Time adhesive tape [ADHESIVE TAPE] AdvReac Mild PATIENT Verified 01/09/21 15:06 STATES IT PEELS HIS SKIN OFF lisinopril [LISINOPRIL] AdvReac Mild COUGH Verified 01/09/21 15:06 prochlorperazine AdvReac Unknown Verified 01/09/21 15:06 [PROCHLORPERAZINE] shellfish derived AdvReac Unknown Verified 01/09/21 15:06 [SHELLFISH DERIVED] Review of Systems <SAMMY Albarran - Last Filed: 01/09/21 16:17> Review of Systems Narrative: GENERAL: See HPI HEENT: Denies sinus pain, ear pain, sore throat, difficulty swallowing, dizziness. RESPIRATORY: Denies dyspnea, cough, wheezing, hemoptysis, sputum. CARDIOVASCULAR: Denies chest pain, palpitations, orthopnea, edema, see HPI Denies nausea, vomiting, abdominal pain, diarrhea, constipation, melena. : Denies dysuria, frequency, incontinence, hematuria, urinary retention. MUSCULOSKELETAL: See HPI SKIN: Denies rash, skin lesions, or other NEUROLOGIC: Denies weakness, headache, numbness, change in speech, confusion, seizures, incoordination. PSYCHIATRIC: No concerning psychosocial issues. 12 point review of systems is negative except for those stated above Patient History <SAMMY Albarran - Last Filed: 01/09/21 16:17> Medical History Atrial fibrillation (Unknown) Carotid artery disease (Unknown) Coronary artery disease (Unknown) Diabetes (Unknown) Diabetes, type 1.5, controlled, managed as type 2 Diabetes, type 1.5, uncontrolled, managed as type 2 Erectile dysfunction (Unknown) GERD (gastroesophageal reflux disease) (Unknown) Hepatitis C (Unknown) Hx of drug abuse Hyperlipemia (Unknown) Hypertension (Unknown) Hypothyroidism (Unknown) Measles (Unknown) Myocardial infarct (10/17/06) Obstructive sleep apnea (Unknown) Peripheral vascular disease (Unknown) Sacral back pain Sacral fracture, closed Surgical History History of open reduction and internal fixation (ORIF) procedure (09/2010) History of penile implant Hx of cataract surgery (~2004) Hx of coronary artery bypass surgery (10/2006) S/P bilateral below knee amputation (Unknown) Family History Father Age: 85 Heart disease ETOH abuse Mother Age: 93 Heart disease Alzheimer's dementia without behavioral disturbance, Alzheimer's disease of unspecified onset Social History household members: spouse Smoking Status: Never smoker alcohol intake: never substance use type: does not use Smoking Status: Never smoker alcohol intake frequency: holidays/special occasions only Substance Use Type: does not use and marijuana Exam <SAMMY Albarran - Last Filed: 01/09/21 16:17> Narrative Exam Narrative: GENERAL: This is a well-nourished, well-developed patient, appears in pain HEAD: Atraumatic. Normocephalic. No temporal or scalp tenderness. EYES: Pupils equal round and reactive. Extraocular motions intact. No scleral icterus. No injection or drainage. ENT: Nose without bleeding, purulent drainage or septal hematoma. Throat without erythema, tonsillar hypertrophy or exudate. Uvula midline. Airway patent. NECK: Trachea midline. No JVD or lymphadenopathy. Supple, nontender, no meningeal signs. CARDIOVASCULAR: Regular rate and rhythm RESPIRATORY: Clear to auscultation. Breath sounds equal bilaterally. No wheezes, rales, or rhonchi. No cough. No increased respiratory effort. No accessory muscle use. GASTROINTESTINAL: Abdomen soft, non-tender, nondistended. No hepato-splenomegaly, or palpable masses. No guarding. EXTREMITIES: Normal for patient. BACK: And no pain to palpation of C or T-spine. Diffuse pain to palpation midline L spine. NEURO: AOx3. SKIN: No rash or erythema on visible skin. No erythema of lower back. Initial Vital Signs Initial Vital Signs: Vital Signs Temperature 97.4 F L 01/09/21 15:00 Pulse Rate 95 H 01/09/21 15:00 Respiratory Rate 16 01/09/21 15:00 Blood Pressure 170/87 H 01/09/21 15:00 Pulse Oximetry 98 01/09/21 15:00 <Kierra Mora DO - Last Filed: 01/10/21 07:21> Initial Vital Signs Initial Vital Signs: Vital Signs Temperature 97.4 F L 01/09/21 15:00 Pulse Rate 95 H 01/09/21 15:00 Respiratory Rate 16 01/09/21 15:00 Blood Pressure 170/87 H 01/09/21 15:00 Pulse Oximetry 98 01/09/21 15:00 Scores <SAMMY Albarran - Last Filed: 01/09/21 16:17> GCS Des coma scale eye opening: Spontaneous Des coma scale verbal response: Orientated Des coma scale motor response: Obey commands Posen coma scale total score: 15 Course <SAMMY Albarran - Last Filed: 01/09/21 16:17> Orders Ordered: Discontinued Medications Sodium Chloride (Normal Saline 0.9%) 1,000 mls @ 150 mls/hr IV CONT VICK Last Infusion: 01/09/21 18:48 Dose: 0 mls/hr Documented by: Admin: 01/09/21 15:34 Dose: 150 mls/hr Documented by: NETO Morphine Sulfate (Morphine 4 Mg/Ml Inj) 4 mg IV NOW ONE Stop: 01/09/21 15:13 Last Admin: 01/09/21 15:34 Dose: 4 mg Documented by: NETO Ondansetron HCl (Ondansetron 4 Mg/2 Ml Inj) 4 mg IV NOW ONE Stop: 01/09/21 15:13 Last Admin: 01/09/21 15:34 Dose: 4 mg Documented by: NETO Vital Signs Vital signs: Vital Signs - 8 hr 01/09/21 15:00 01/09/21 17:02 01/09/21 18:18 Temperature 97.4 F L Pulse Rate 95 H 87 87 Respiratory Rate 16 18 Blood Pressure 170/87 H 147/69 H Pulse Oximetry 98 96 94 01/09/21 18:20 01/09/21 18:30 01/09/21 18:31 Temperature Pulse Rate 108 H 96 H 100 H Respiratory Rate Blood Pressure 137/62 102/59 L Pulse Oximetry 95 92 92 <Kierra Mora DO - Last Filed: 01/10/21 07:21> Orders Ordered: Discontinued Medications Sodium Chloride (Normal Saline 0.9%) 1,000 mls @ 150 mls/hr IV CONT VICK Last Infusion: 01/09/21 18:48 Dose: 0 mls/hr Documented by: Admin: 01/09/21 15:34 Dose: 150 mls/hr Documented by: NETO Morphine Sulfate (Morphine 4 Mg/Ml Inj) 4 mg IV NOW ONE Stop: 01/09/21 15:13 Last Admin: 01/09/21 15:34 Dose: 4 mg Documented by: NETO Ondansetron HCl (Ondansetron 4 Mg/2 Ml Inj) 4 mg IV NOW ONE Stop: 01/09/21 15:13 Last Admin: 01/09/21 15:34 Dose: 4 mg Documented by: NETO Vital Signs Vital signs: Vital Signs - 8 hr 01/09/21 15:00 01/09/21 17:02 01/09/21 18:18 Temperature 97.4 F L Pulse Rate 95 H 87 87 Respiratory Rate 16 18 Blood Pressure 170/87 H 147/69 H Pulse Oximetry 98 96 94 01/09/21 18:20 01/09/21 18:30 01/09/21 18:31 Temperature Pulse Rate 108 H 96 H 100 H Respiratory Rate Blood Pressure 137/62 102/59 L Pulse Oximetry 95 92 92 MDM - Back Pain/Injury <Malathi Us, [employer]ER- - Last Filed: 01/09/21 16:17> Lab Data Attestation: I reviewed the patient's lab results. Result diagrams: 01/09/21 15:30 01/09/21 15:30 Labs: Lab Results 01/09/21 01/09/21 01/09/21 Range/Units 15:30 15:30 15:30 WBC 9.4 (4.5-11.0) X10^3/uL RBC 5.18 (4.5-5.9) X10^6/uL Hgb 14.1 (13.5-17.5) g/dL Hct 42.3 (41-53) % MCV 81.6 (80-100) fL MCH 27.2 (26-34) PG MCHC 33.4 (30-36) % RDW 14.0 (11.6-14.8) % Plt Count 204 (150-400) X10^3/uL Neut % (Auto) 57.5 (50-75) % Lymph % (Auto) 31.8 (25-40) % Tyler % (Auto) 7.7 (3-14) % Eos % (Auto) 2.1 (2-4) % Baso % (Auto) 0.9 (0-2) % Neut # (Auto) 5400 (4370-4285) /uL Lymph # (Auto) 3000 (9559-8896) /uL Tyler # (Auto) 700 (0-900) /uL Eos # (Auto) 200 (0-450) /uL Baso # (Auto) 100 (0-100) /uL ESR 5 (0-15) MM/HR Sodium 137 (137-145) mmol/L Potassium 4.0 (3.4-5.1) mmol/L Chloride 103 (98-107) mmol/L Carbon Dioxide 29 (22-32) mmol/L BUN 22 H (9-20) mg/dL Creatinine 0.74 (0.66-1.25) mg/dL Estimated GFR > 60.0 (>60) mL/min BUN/Creatinine Ratio 29.7 H (6-22) Glucose 56 L (80-110) mg/dL Lactate 1.1 (0.7-2.1) mmol/L Calcium 9.8 (8.4-10.2) mg/dL Total Bilirubin 0.7 (0.2-1.3) mg/dL AST 26 (17-59) IU/L ALT 16 (<50) IU/L Alkaline Phosphatase 94 (38-126) U/L C-Reactive Protein < 0.5 (<1.0) mg/dL Total Protein 7.4 (6.3-8.2) g/dL Albumin 4.1 (3.5-5.0) g/dL Globulin 3.3 (1.7-4.1) g/dL Albumin/Globulin Ratio 1.2 (1.0-2.8) Point of Care Testing Glucose POC 168 MDM Narrative Medical decision making narrative: The patient is a 75-year-old male who presents 1 week after a spinal injection with a chief complaint of severe back pain and states he ?needs to take it shit. Basic lab work was drawn as he has a increased risk given his recent spinal injection. Spoke with Dr Mora and elected to order an MRI. Patient signed out to Dr Mora at 16:15. Pain well controlled at this point with morphine, Zofran given as well. <Kierra Mora, - Last Filed: 02/24/21 07:21> Lab Data Attestation: I reviewed the patient's lab results. Labs: Lab Results 01/09/21 01/09/21 01/09/21 Range/Units 15:30 15:30 15:30 WBC 9.4 (4.5-11.0) X10^3/uL RBC 5.18 (4.5-5.9) X10^6/uL Hgb 14.1 (13.5-17.5) g/dL Hct 42.3 (41-53) % MCV 81.6 (80-100) fL MCH 27.2 (26-34) PG MCHC 33.4 (30-36) % RDW 14.0 (11.6-14.8) % Plt Count 204 (150-400) X10^3/uL Neut % (Auto) 57.5 (50-75) % Lymph % (Auto) 31.8 (25-40) % Tyler % (Auto) 7.7 (3-14) % Eos % (Auto) 2.1 (2-4) % Baso % (Auto) 0.9 (0-2) % Neut # (Auto) 5400 (2628-1074) /uL Lymph # (Auto) 3000 (4023-4978) /uL Tyler # (Auto) 700 (0-900) /uL Eos # (Auto) 200 (0-450) /uL Baso # (Auto) 100 (0-100) /uL ESR 5 (0-15) MM/HR Sodium 137 (137-145) mmol/L Potassium 4.0 (3.4-5.1) mmol/L Chloride 103 (98-107) mmol/L Carbon Dioxide 29 (22-32) mmol/L BUN 22 H (9-20) mg/dL Creatinine 0.74 (0.66-1.25) mg/dL Estimated GFR > 60.0 (>60) mL/min BUN/Creatinine Ratio 29.7 H (6-22) Glucose 56 L (80-110) mg/dL Lactate 1.1 (0.7-2.1) mmol/L Calcium 9.8 (8.4-10.2) mg/dL Total Bilirubin 0.7 (0.2-1.3) mg/dL AST 26 (17-59) IU/L ALT 16 (<50) IU/L Alkaline Phosphatase 94 (38-126) U/L C-Reactive Protein < 0.5 (<1.0) mg/dL Total Protein 7.4 (6.3-8.2) g/dL Albumin 4.1 (3.5-5.0) g/dL Globulin 3.3 (1.7-4.1) g/dL Albumin/Globulin Ratio 1.2 (1.0-2.8) Point of Care Testing Glucose POC 168 Imaging Data MR Lumbar: Radiologist's Impression: PROCEDURE: MR LUMBAR SPINE WO/W CON INDICATIONS: post injection severe pain TECHNIQUE: Noncontrast sagittal T1 spin echo and T2 fast spin echo, sagittal STIR, axial T1 and T2 fast spin echo through the lumbar spine. In cases with scoliosis, additional coronal T2 fast spin echo may be performed. After the administration of contrast, sagittal and axial T1 spin echo with fat saturation through the lumbar spine. COMPARISON: [facility], CR, PELVIS W UNILATERAL HIP RIGHT, 10/08/2010, 10:37. [facility], CR, XR LUMBAR SPINE 2-3V, 11/16/2020, 14:08. [facility], MR, MR LUMBAR SPINE WO CON, 09/16/2018, 13:35. FINDINGS: Image quality: Excellent. Alignment and curvature: There is normal bony alignment. Marrow: Abnormal marrow signal of the left iliac bone at the sacroiliac joint. There is small left SI joint effusion. No abnormal enhancement. No acute vertebral body compression fractures. No suspicious marrow enhancement. Spinal cord: Conus medullaris terminates at the L1 level. Visualized spinal cord demonstrates normal signal, without suspicious enhancement. Paraspinous soft tissues: No paravertebral masses or abnormal enhancement. T12-L1: Preserved disc height. Mild disc desiccation. Mild diffuse posterior disc bulge. No central canal or foraminal stenosis. L1-L2: Preserved disc height. Mild disc desiccation. There is posterior disc bulge. The central canal is mildly narrowed. Mild bilateral foraminal stenosis. L2-L3: Preserved disc height. Mild disc desiccation. There is posterior disc bulge. Mild bilateral facet arthropathy and hypertrophy of ligamentum flavum. The central canal is mildly narrowed. Mild bilateral foraminal stenosis. L3-L4: Moderate loss of disc height and disc desiccation. There is posterior disc bulge and disc osteophyte complex. Mild bilateral facet arthropathy and hypertrophy of ligamentum flavum. The central canal is severely narrowed. Mild bilateral foraminal stenosis. L4-L5: Mild loss of disc height and moderate disc desiccation. There is posterior disc bulge and disc osteophyte complex. Mild bilateral facet arthropathy and hypertrophy of ligamentum flavum. The central canal is moderately narrowed. Mild bilateral foraminal stenosis. L5-S1: Mild loss of disc height and moderate disc desiccation. There is posterior disc bulge and posterior central disc protrusion. Mild bilateral facet arthropathy. The central canal is mildly narrowed. [id number] bilateral foraminal stenosis. IMPRESSION: 1. Multilevel degenerative disc disease and facet arthropathy as described. 2. Multilevel central canal stenosis as described. 3. Multilevel foraminal stenosis as described. 4. Abnormal marrow signal involving the left iliac bone at the sacroiliac joint. There is a small SI joint effusion. Marrow edema, however, has decreased compared to the last exam. The comparison x-ray demonstrates sclerosis of the iliac bone and sacrum at the left sacroiliac joint. The findings are most likely related to a joint centered process such as ileitis condensans or treated septic joint/osteomyelitis. Recommend clinical correlation. Dictated by: Norman Cruz M.D. on 01/09/2021 at 18:00 [facility] Narrative Medical decision making narrative: Patient's pain is completely resolved after morphine. He states that he received an injection it took care of the pain immediately. 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 This morning he woke up with an acute exacerbation of chronic pain. Typically his pain is controlled with Tylenol and ibuprofen however did not work this morning. I discussed with him pain control for lidocaine patches verses some Mcewen. We also discussed meloxicam. At this time he does not want to be in as much pain as he was earlier this morning he is requesting for some hydrocodone. I instruct him to take half a tablet at a time. Discharge Plan Departure Patient Disposition: Home Clinical Impression: Acute exacerbation of chronic low back pain Instructions: Low Back Pain Activity Restrictions/Additional Instructions: *You have been diagnosed with acute on chronic back pain *What to do: At this time MRI does not show any complication from her most recent injection. This is likely from overdoing it yesterday please take it easy. No heavy lifting or significant amount of time on feet. *Continue to take medications as directed--> SENT TO [facility] Mcewen half tablet to 1 full tablet every 6 hours only if needed for severe pain *Follow up with your primary care provider in 2-3 days *Return to ER if you should have worsening back pain, changes in urine or bowel, fever or any new, worsening or concerning symptoms CONTROLLED SUBSTANCE DISCHARGE (Narcotoic/benzodiazepine/Flexeril/Phenergan) 1. You have been prescribed narcotic medications, it does have acetaminophen/Tylenol/paracetamol in it, DO NOT TAKE MORE THAN 4,00mg in 24 hours of Tylenol. TRAMADOL DOES NOT CONTAIN TYLENOL 2. Please understand that we cannot provide further refills of narcotics, benzodiazepines or controlled substances through the ED and her pain management will need to be through your provider. 3. While on these medications you cannot drive or operate heavy machinery. 4. You cannot sign legal documents or perform any duties such as this. 5. As long as you're taking opiate pain medications he should also be taking a stool softener such as Colace, Dulcolax, MiraLAX or prune juice, to help avoid constipation. Prescriptions: New hydrocodone-acetaminophen 5-325 mg tablet 1 tab PO Q6H PRN (Reason: pain) Qty: 10 RF: 0 No Action apixaban 5 mg tablet 5 mg PO BID RF: 0 (DME) Syringes: 1cc Insulin Syringes with Dodson 0 .Route .MEDSUPPLY Qty: 100 RF: 3 Novolin 70/30 U-100 Insulin 100 unit/mL (70-30) suspension 30 unit SUBCUT BID Qty: 20 RF: 11 pantoprazole 40 mg tablet,delayed release (DR/EC) 40 mg PO DAILY Qty: 90 RF: 1 levothyroxine 175 mcg tablet 175 mcg PO DAILY Qty: 90 RF: 3 tamsulosin 0.4 mg capsule See Rx Instructions .ROUTE .COMPLEX Qty: 90 RF: 0 rosuvastatin 20 mg tablet 20 mg PO DAILY Qty: 90 RF: 0 metoprolol tartrate 100 mg tablet See Rx Instructions .ROUTE .COMPLEX Qty: 180 RF: 3 furosemide 20 mg tablet 20 mg PO QDAY Qty: 90 RF: 3 losartan 25 mg tablet 25 mg PO DAILY Qty: 90 RF: 3 (DME) Glucose: Test Strips See Rx Instructions .Route .MEDSUPPLY Qty: 250 RF: 6 aspirin 81 mg tablet,delayed release (DR/EC) 2 tab PO DAILY RF: 0 doxycycline hyclate 100 mg tablet 100 mg PO BID Qty: 20 RF: 0 Referrals: Bora Little MD [Primary Care Provider] - <Kierra Mora DO - Last Filed: 01/10/21 07:21> Cosign ED Attending Cosignature Attestation: I was immediately available in the department for consultation. Documentation has been reviewed. I agree with assessment and plan.
[2021-01-09] MEDS: SODIUM CHLORIDE 0.9% 1,000 ML 150 ML IV (15:34)
[2021-01-09] MEDS: ONDANSETRON 4 MG/2 ML INJ IV (15:34)
[2021-01-09] MEDS: MORPHINE 4 MG/ML INJ IV (15:34)
[2021-01-09 15:39] LABS: Add Manual Diff / Slide Review NO; Basophils Absolute Auto 100 /uL (0-100); Basophils Percent Auto 0.9 % (0-2); Eosinophils Absolute Auto 200 /uL (0-450); Eosinophils Percent Auto 2.1 % (2-4); Hematocrit 42.3 % (41-53); Hemoglobin 14.1 g/dL (13.5-17.5); Lymphocytes Absolute Auto 3000 /uL (1100-4500); Lymphocytes Percent Auto 31.8 % (25-40); Mean Corpuscular HGB Conc 33.4 % (30-36); Mean Corpuscular Hemoglobin 27.2 PG (26-34); Mean Corpuscular Volume 81.6 fL (80-100); Monocytes Absolute Auto 700 /uL (0-900); Monocytes Percent Auto 7.7 % (3-14); Neutrophils Absolute Auto 5400 /uL (1500-7000); Neutrophils Percent Auto 57.5 % (50-75); Platelet Count 204 X10^3/uL (150-400); Red Blood Cell Count 5.18 X10^6/uL (4.5-5.9); White Blood Cell Count 9.4 X10^3/uL (4.5-11.0)
[2021-01-09 15:56] LABS: Erythrocyte Sedimentation Rate 5 MM/HR (0-15)
[2021-01-09 16:02] LABS: Lactate (Lactic Acid) 1.1 mmol/L (0.7-2.1)
[2021-01-09 16:05] LABS: Alanine Aminotransferase 16 IU/L (<50); Albumin 4.1 g/dL (3.5-5.0); Albumin Globulin Ratio 1.2 (1.0-2.8); Alkaline Phosphatase 94 U/L (38-126); Aspartate Aminotransferase 26 IU/L (17-59); BUN Creatinine Ratio 29.7 (6-22); Bilirubin Total 0.7 mg/dL (0.2-1.3); Blood Urea Nitrogen 22 mg/dL (9-20); C-Reactive Protein Quant < 0.5 mg/dL (<1.0); Calcium 9.8 mg/dL (8.4-10.2); Carbon Dioxide 29 mmol/L (22-32); Chloride 103 mmol/L (98-107); Estimated Glomerular Filt Rate > 60.0 mL/min (>60); Globulin 3.3 g/dL (1.7-4.1); Glucose 56 mg/dL (80-110); HEMOLYSIS < 15 (0-50); Sodium 137 mmol/L (137-145); Total Protein 7.4 g/dL (6.3-8.2)
--- NOTE | 2021-01-09 16:06 | DI.MRI.S_ITS ---
PROCEDURE: MR LUMBAR SPINE WO/W CON INDICATIONS: post injection severe pain TECHNIQUE: Noncontrast sagittal T1 spin echo and T2 fast spin echo, sagittal STIR, axial T1 and T2 fast spin echo through the lumbar spine. In cases with scoliosis, additional coronal T2 fast spin echo may be performed. After the administration of contrast, sagittal and axial T1 spin echo with fat saturation through the lumbar spine. COMPARISON: [facility], CR, PELVIS W UNILATERAL HIP RIGHT, 10/08/2010, 10:37. [facility], CR, XR LUMBAR SPINE 2-3V, 11/16/2020, 14:08. [facility], MR, MR LUMBAR SPINE WO CON, 09/16/2018, 13:35. FINDINGS: Image quality: Excellent. Alignment and curvature: There is normal bony alignment. Marrow: Abnormal marrow signal of the left iliac bone at the sacroiliac joint. There is small left SI joint effusion. No abnormal enhancement. No acute vertebral body compression fractures. No suspicious marrow enhancement. Spinal cord: Conus medullaris terminates at the L1 level. Visualized spinal cord demonstrates normal signal, without suspicious enhancement. Paraspinous soft tissues: No paravertebral masses or abnormal enhancement. T12-L1: Preserved disc height. Mild disc desiccation. Mild diffuse posterior disc bulge. No central canal or foraminal stenosis. L1-L2: Preserved disc height. Mild disc desiccation. There is posterior disc bulge. The central canal is mildly narrowed. Mild bilateral foraminal stenosis. L2-L3: Preserved disc height. Mild disc desiccation. There is posterior disc bulge. Mild bilateral facet arthropathy and hypertrophy of ligamentum flavum. The central canal is mildly narrowed. Mild bilateral foraminal stenosis. L3-L4: Moderate loss of disc height and disc desiccation. There is posterior disc bulge and disc osteophyte complex. Mild bilateral facet arthropathy and hypertrophy of ligamentum flavum. The central canal is severely narrowed. Mild bilateral foraminal stenosis. L4-L5: Mild loss of disc height and moderate disc desiccation. There is posterior disc bulge and disc osteophyte complex. Mild bilateral facet arthropathy and hypertrophy of ligamentum flavum. The central canal is moderately narrowed. Mild bilateral foraminal stenosis. L5-S1: Mild loss of disc height and moderate disc desiccation. There is posterior disc bulge and posterior central disc protrusion. Mild bilateral facet arthropathy. The central canal is mildly narrowed. [id number] bilateral foraminal stenosis. IMPRESSION: 1. Multilevel degenerative disc disease and facet arthropathy as described. 2. Multilevel central canal stenosis as described. 3. Multilevel foraminal stenosis as described. 4. Abnormal marrow signal involving the left iliac bone at the sacroiliac joint. There is a small SI joint effusion. Marrow edema, however, has decreased compared to the last exam. The comparison x-ray demonstrates sclerosis of the iliac bone and sacrum at the left sacroiliac joint. The findings are most likely related to a joint centered process such as ileitis condensans or treated septic joint/osteomyelitis. Recommend clinical correlation. Dictated by: Norman Cruz M.D. on 01/09/2021 at 18:00 Approved by: Norman Cruz M.D. on 01/09/2021 at 18:14
[2021-01-09 17:02] VITALS: BP 147/69; PULSE 87; RESP 18; O2SAT 96
--- NOTE | 2021-01-09 18:00 | PC.NURSE ---
Pt states that he feels like his blood glucose was low. POC was 38. Dr. Mora informed, wishes for pt to eat instead of IV D50. Pt given a sandwich, oj, and pudding. Pt is conversing well, A&Ox4, speaking clearly, and eating well.
[2021-01-09 18:18] VITALS: PULSE 87; O2SAT 94
[2021-01-09 18:20] VITALS: BP 137/62; PULSE 108; O2SAT 95
[2021-01-09 18:30] VITALS: PULSE 96; O2SAT 92
[2021-01-09 18:31] VITALS: BP 102/59; PULSE 100; O2SAT 92
== END 2021-01-09 19:26 | disposition home or self-care (01) ==
PROVIDERS: Nurse Practitioner Family; Emergency Provider Emergency Medicine; PCP Internal Medicine
DX: M54.5 Low back pain (principal); E78.5 Hyperlipidemia, unspecified; E11.9 Type 2 diabetes mellitus without complications; I48.91 Unspecified atrial fibrillation; Z79.01 Long term (current) use of anticoagulants
CPT/HCPCS: 36415; 72158; 80053; 82962; 83605; 85025; 85651; 86140; 96361; 96374; 96375; 99283; 99284; J2270; J2405

== ENCOUNTER → 2021-01-29 07:41 | Outpatient (CLI) | payer OTHER, SELFPAY ==
[2020-12-20 13:40] VITALS: BMI 40.7
[2021-01-29] MEDS: COVID-19 VACC, Ad26(JANSSEN)/PF 0.5 ML IM (07:50)
== END ==
PROVIDERS: PCP Internal Medicine; Visit Provider Internal Medicine
DX: Z23 Encounter for immunization (principal)
CPT/HCPCS: 0031A; 91303

== ENCOUNTER 2021-08-14 17:33 | Emergency (ER) | payer OTHER, SELFPAY ==
[2020-12-20 13:40] VITALS: BMI 40.7
[2021-08-14 17:42] VITALS: BP 146/76; PULSE 82; RESP 20; TEMP 36.8; O2SAT 99
--- NOTE | 2021-08-14 17:49 | ED_ITS ---
HPI - Skin/Abscess/Foreign Bdy General Chief complaint: Skin/Abscess/Foreign Body Stated complaint: bruising all over Time Seen by Provider: 08/14/21 17:43 Source: patient Mode of arrival: Ambulatory History of Present Illness HPI narrative: 75-year-old male nonsmoker with history of DM and use of blood thinners as well as chronic back pain and opioid use problem presents recurrence of painful red lesions in his right antecubital fossa at the site of injection. He denies any systemic findings such as fever, chills nor nausea or vomiting. He has full range of motion but a tender spot at an injection site. He denies any spontaneous drainage. He was most recently seen a few months ago and did well on doxycycline. His primary care provider is Dr. Little and he has been sent to a pain clinic in the past but states he did not have a good outcome. Related Data Home Medications Medication Instructions Recorded Confirmed aspirin 81 mg tablet,delayed 2 tab PO DAILY 09/16/18 04/25/21 release apixaban 5 mg tablet 5 mg PO BID 10/29/19 04/25/21 Previous Rx's Medication Instructions Recorded levothyroxine 175 mcg tablet 175 mcg PO DAILY #90 tab 09/21/20 rosuvastatin 20 mg tablet 20 mg PO DAILY #90 tab 10/06/20 tamsulosin 0.4 mg capsule See Rx Instructions .ROUTE 10/06/20 .COMPLEX #90 cap metoprolol tartrate 100 mg tablet See Rx Instructions .ROUTE 10/16/20 .COMPLEX #180 tablet furosemide 20 mg tablet 20 mg PO QDAY #90 tab 10/20/20 losartan 25 mg tablet 25 mg PO DAILY #90 tab 10/20/20 Glucose: Test Strips #250 ea 12/04/20 doxycycline hyclate 100 mg tablet 100 mg PO BID #20 tab 12/14/20 pantoprazole 40 mg tablet,delayed 40 mg PO DAILY #90 tab 02/01/21 release calcitonin (salmon) 200 1 spray INTRANASAL (ALT) DAILY 60 02/02/21 unit/actuation nasal spray Days #3.7 ml tramadol 50 mg tablet 50 mg PO BID PRN #60 tab 02/02/21 insulin human U-100 NPH-regulr 30 unit SUBCUT BID #20 ml 03/26/21 70-30 mix 100 unit/mL subcutaneous susp (Novolin 70/30 U-100 Insulin) Syringes: 1cc Insulin Syringes #100 each 04/02/21 with Central doxycycline hyclate 100 mg tablet 100 mg PO BID #20 tab 08/14/21 Allergies Allergy/AdvReac Type Severity Reaction Status Date / Time adhesive tape [ADHESIVE TAPE] AdvReac Mild PATIENT Verified 04/25/21 18:29 STATES IT PEELS HIS SKIN OFF lisinopril [LISINOPRIL] AdvReac Mild COUGH Verified 04/25/21 18:29 prochlorperazine AdvReac Unknown Verified 04/25/21 18:29 [PROCHLORPERAZINE] shellfish derived AdvReac Unknown Verified 04/25/21 18:29 [SHELLFISH DERIVED] Review of Systems Review of Systems Narrative: GENERAL: Denies chills, fatigue, malaise, fever, sweats. HEENT: Denies sinus pain, ear pain, sore throat, difficulty swallowing, dizziness. RESPIRATORY: Denies dyspnea, cough, wheezing, hemoptysis, sputum. CARDIOVASCULAR: Denies chest pain, palpitations, orthopnea, edema, GASTROINTESTINAL: Denies nausea, vomiting, abdominal pain, diarrhea, constipation, melena. : Denies dysuria, frequency, incontinence, hematuria, urinary retention. MUSCULOSKELETAL: See HPI SKIN: See HPI NEUROLOGIC: Denies weakness, headache, numbness, change in speech, confusion, seizures, incoordination. PSYCHIATRIC: No concerning psychosocial issues. 12 point review of systems is negative except for those stated above Patient History Medical History Atrial fibrillation (Unknown) Carotid artery disease (Unknown) Coronary artery disease (Unknown) Diabetes (Unknown) Diabetes, type 1.5, controlled, managed as type 2 Diabetes, type 1.5, uncontrolled, managed as type 2 Erectile dysfunction (Unknown) GERD (gastroesophageal reflux disease) (Unknown) Hepatitis C (Unknown) Hx of drug abuse Hyperlipemia (Unknown) Hypertension (Unknown) Hypothyroidism (Unknown) Measles (Unknown) Myocardial infarct (10/17/06) Obstructive sleep apnea (Unknown) Peripheral vascular disease (Unknown) Sacral back pain Surgical History History of open reduction and internal fixation (ORIF) procedure (09/2010) History of penile implant Hx of cataract surgery (~2004) Hx of coronary artery bypass surgery (10/2006) S/P bilateral below knee amputation (Unknown) Family History Father Age: 85 Heart disease ETOH abuse Mother Age: 93 Heart disease Alzheimer's dementia without behavioral disturbance, Alzheimer's disease of unspecified onset Social History household members: spouse Smoking Status: Never smoker alcohol intake: never substance use type: does not use Smoking Status: Never smoker alcohol intake frequency: holidays/special occasions only Substance Use Type: marijuana, opiates and IV drugs Exam Narrative Exam Narrative: GEN: AOx3 and in mild distress EYES: Pupils are equal, round, and reactive to light and accommodation. Extraoccular muscles are intact bilaterally. There is no subconjunctival hemorrhage or exudate. CHEST: Lungs are clear to auscultation bilaterally and free of wheezes, rales, or rhonchi. Heart rate is regular rhythm, there are no murmurs, clicks, rubs, or gallops. There is no chest wall tenderness. ABD: Abdomen is soft and nontender. There is no guarding or rebound. Bowel sounds are normal in all 4 quadrants. There is no mass or organomegaly. EXT: Full painless ROM of all extremities with no loss of sensation or strength. SKIN: Multiple healing, superficial abscesses at various stages of healing. Just proximal to right antecubital fossa there is a 2 x 2 cm area of induration without fluctuance, minimal surrounding erythema. Patient has full range of motion and there is no suspicion of septic arthritis. Initial Vital Signs Initial Vital Signs: Vital Signs Temperature 98.2 F 08/14/21 17:42 Pulse Rate 82 08/14/21 17:42 Respiratory Rate 20 08/14/21 17:42 Blood Pressure 146/76 H 08/14/21 17:42 Pulse Oximetry 99 08/14/21 17:42 Course Orders Ordered: ED Orders 08/14/21 17:51 Consult to CHILDCARE WORKER - Marketing Coordinator Stat Vital Signs Vital signs: Vital Signs - 8 hr 08/14/21 17:42 Temperature 98.2 F Pulse Rate 82 Respiratory Rate 20 Blood Pressure 146/76 H Pulse Oximetry 99 MDM - Skin/Abscess/Foreign Bdy MDM Narrative Medical decision making narrative: Patient is well-appearing and free of any systemic findings. No suspicion of sepsis. Patient has no chest pain, shortness of breath or murmur. Patient has painful indurated skin without fluctuance, not likely to respond to incision and drainage. Patient has full range of motion at elbow, very low suspicion of septic arthritis. Patient does state he'd like help and would be open to speaking with CHILDCARE WORKER Discharge Plan Departure Patient Disposition: Home Clinical Impression: Abscess Instructions: DI for Skin Abscess Activity Restrictions/Additional Instructions: *You have been diagnosed with [multiple superficial cutaneous abscesses *What to do: *Please continue to take your regular medications as directed. [ x] New medication prescriptions sent to your pharmacy: [ ] [ ] New medication written as a paper prescription [ ] No new medications given *Please follow up with your primary care provider in 2-3 days, call for an appointment. Let them know you were seen in the Emergency Department and that we ask that you be seen in follow up. We will electronically transmit a record of today's note if your PCP is in our system *If you do not have a primary care provider please contact the [facility] Resource line at [phone]. They will ask some questions about your medical history and help get you set up with a doctor in the community. *Return to Emergency Department if you should have any new, worsening or concerning symptoms, such as [fever greater than 101 F, shaking chills, worsening pain, persistent vomiting or other bothersome symptoms] Prescriptions: New doxycycline hyclate 100 mg tablet 100 mg PO BID Qty: 20 RF: 0 No Action apixaban 5 mg tablet 5 mg PO BID RF: 0 levothyroxine 175 mcg tablet 175 mcg PO DAILY Qty: 90 RF: 3 tamsulosin 0.4 mg capsule See Rx Instructions .ROUTE .COMPLEX Qty: 90 RF: 0 rosuvastatin 20 mg tablet 20 mg PO DAILY Qty: 90 RF: 0 metoprolol tartrate 100 mg tablet See Rx Instructions .ROUTE .COMPLEX Qty: 180 RF: 3 furosemide 20 mg tablet 20 mg PO QDAY Qty: 90 RF: 3 losartan 25 mg tablet 25 mg PO DAILY Qty: 90 RF: 3 (DME) Glucose: Test Strips See Rx Instructions .Route .MEDSUPPLY Qty: 250 RF: 6 pantoprazole 40 mg tablet,delayed release (DR/EC) 40 mg PO DAILY Qty: 90 RF: 1 Novolin 70/30 U-100 Insulin 100 unit/mL (70-30) suspension 30 unit SUBCUT BID Qty: 20 RF: 11 (DME) Syringes: 1cc Insulin Syringes with Central 0 .Route .MEDSUPPLY Qty: 100 RF: 3 aspirin 81 mg tablet,delayed release (DR/EC) 2 tab PO DAILY RF: 0 doxycycline hyclate 100 mg tablet 100 mg PO BID Qty: 20 RF: 0 calcitonin (salmon) 200 unit/actuation spray,non-aerosol 1 spray intranasal (ALT) DAILY 60 Days Qty: 3.7 RF: 1 tramadol 50 mg tablet 50 mg PO BID PRN (Reason: pain) Qty: 60 RF: 1 Referrals: [facility] [Outside] Bora Little MD [Primary Care Provider] -
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
== END 2021-08-14 19:25 | disposition home or self-care (01) ==
PROVIDERS: Emergency Provider Emergency Medicine; PCP Internal Medicine
DX: L02.415 Cutaneous abscess of right lower limb (principal)
CPT/HCPCS: 99281

== ENCOUNTER → 2021-08-22 11:30 | Outpatient (CLI) | payer MEDICARE, OTHER, SELFPAY ==
[2020-12-20 13:40] VITALS: BMI 40.7
[2021-08-22 13:01] LABS: Hemoglobin A1C% w Est Avg Glu 8.4 % (4.0-6.0)
[2021-08-22 13:13] LABS: Alanine Aminotransferase 17 IU/L (<50); Albumin 3.8 g/dL (3.5-5.0); Albumin Globulin Ratio 1.3 (1.0-2.8); Alkaline Phosphatase 91 U/L (38-126); Aspartate Aminotransferase 31 IU/L (17-59); BUN Creatinine Ratio 28.8 (6-22); Bilirubin Total 0.9 mg/dL (0.2-1.3); Blood Urea Nitrogen 23 mg/dL (9-20); Calcium 9.2 mg/dL (8.4-10.2); Carbon Dioxide 25 mmol/L (22-32); Chloride 104 mmol/L (98-107); Estimated Glomerular Filt Rate > 60.0 mL/min (>60); Globulin 2.9 g/dL (1.7-4.1); Glucose 141 mg/dL (80-110); HEMOLYSIS 37 (0-50); Potassium 4.6 mmol/L (3.4-5.1); Sodium 138 mmol/L (137-145); Total Protein 6.7 g/dL (6.3-8.2)
[2021-08-22 13:29] LABS: Free T4, Direct Thyroxine 1.54 ng/dL (0.78-2.19)
[2021-08-22 13:43] LABS: Thyroid Stimulating Hormone 1.72 uIU/mL (0.47-4.68)
== END ==
PROVIDERS: PCP Internal Medicine; Referring Provider Internal Medicine; Visit Provider Internal Medicine
DX: E03.9 Hypothyroidism, unspecified (principal); E13.65 Other specified diabetes mellitus with hyperglycemia; I48.20 Chronic atrial fibrillation, unspecified
CPT/HCPCS: 36415; 80053; 83036; 84439; 84443

== ENCOUNTER → 2021-10-01 09:07 | Outpatient (CLI) | payer MEDICARE, OTHER, SELFPAY ==
[2020-12-20 13:40] VITALS: BMI 40.7
[2021-10-01 10:43] LABS: Add Manual Diff / Slide Review NO; Basophils Absolute Auto 0 /uL (0-100); Basophils Percent Auto 0.5 % (0-2); Eosinophils Absolute Auto 100 /uL (0-450); Eosinophils Percent Auto 1.5 % (2-4); Hematocrit 42.3 % (41-53); Hemoglobin 14.5 g/dL (13.5-17.5); Lymphocytes Absolute Auto 2000 /uL (1100-4500); Lymphocytes Percent Auto 29.5 % (25-40); Mean Corpuscular HGB Conc 34.2 % (30-36); Mean Corpuscular Hemoglobin 28.2 PG (26-34); Mean Corpuscular Volume 82.4 fL (80-100); Monocytes Absolute Auto 500 /uL (0-900); Monocytes Percent Auto 7.9 % (3-14); Neutrophils Absolute Auto 4100 /uL (1500-7000); Neutrophils Percent Auto 60.6 % (50-75); Platelet Count 158 X10^3/uL (150-400); Red Blood Cell Count 5.13 X10^6/uL (4.5-5.9); Red Cell Distribution Width 13.9 % (11.6-14.8); White Blood Cell Count 6.7 X10^3/uL (4.5-11.0)
[2021-10-01 11:21] LABS: Alanine Aminotransferase 22 IU/L (<50); Albumin 4.1 g/dL (3.5-5.0); Albumin Globulin Ratio 1.3 (1.0-2.8); Alkaline Phosphatase 123 U/L (38-126); Aspartate Aminotransferase 29 IU/L (17-59); BUN Creatinine Ratio 22.4 (6-22); Bilirubin Total 0.9 mg/dL (0.2-1.3); Blood Urea Nitrogen 17 mg/dL (9-20); Calcium 9.3 mg/dL (8.4-10.2); Carbon Dioxide 30 mmol/L (22-32); Chloride 98 mmol/L (98-107); Cholesterol 140 mg/dL (140-199); Estimated Glomerular Filt Rate > 60.0 mL/min (>60); Globulin 3.1 g/dL (1.7-4.1); Glucose 220 mg/dL (80-110); HDL Cholesterol 51 mg/dL (40-60); HEMOLYSIS 20 (0-50); LDL Cholesterol Calculated 71 mg/dL (<100); Potassium 4.1 mmol/L (3.4-5.1); Sodium 136 mmol/L (137-145); Total Protein 7.2 g/dL (6.3-8.2); Triglycerides 89 mg/dL (35-150)
== END ==
PROVIDERS: PCP Internal Medicine; Referring Provider Internal Medicine Cardiovascular Disease; Visit Provider Internal Medicine Cardiovascular Disease
DX: I48.0 Paroxysmal atrial fibrillation (principal); Z95.1 Presence of aortocoronary bypass graft
CPT/HCPCS: 36415; 80053; 80061; 85025

== ENCOUNTER 2021-10-24 20:27 | Emergency (ER) | payer MEDICARE, OTHER, SELFPAY ==
[2020-12-20 13:40] VITALS: BMI 40.7
[2021-10-24 20:55] VITALS: BP 166/70; PULSE 90; RESP 22; TEMP 37.6; O2SAT 97
--- NOTE | 2021-10-24 22:26 | ED.SKABFB ---
HPI - Skin/Abscess/Foreign Bdy General Chief complaint: Skin/Abscess/Foreign Body Stated complaint: states has a boil Time Seen by Provider: 10/24/21 22:20 Source: patient Mode of arrival: Ambulatory History of Present Illness HPI narrative: 75-year-old male who is here for evaluation of a infection to his right arm. He states that a couple days ago he did shoot up in this area. He has done this in the past. He has had infections in the past that have required drainage. He has not tried anything for the symptoms prior to arrival. He denies any fevers. He is on anticoagulation. Is a diabetic. Related Data Home Medications Medication Instructions Recorded Confirmed aspirin 81 mg tablet,delayed 2 tab PO DAILY 09/16/18 09/10/21 release apixaban 5 mg tablet 5 mg PO DAILY tab 08/22/21 09/10/21 Previous Rx's Medication Instructions Recorded metoprolol tartrate 100 mg tablet See Rx Instructions .ROUTE 10/16/20 .COMPLEX #180 tablet furosemide 20 mg tablet 20 mg PO QDAY #90 tab 10/20/20 losartan 25 mg tablet 25 mg PO DAILY #90 tab 10/20/20 pantoprazole 40 mg tablet,delayed 40 mg PO DAILY #90 tab 02/01/21 release insulin human U-100 NPH-regulr 30 unit (0.3 mL) SUBCUT BID #20 ml 03/26/21 70-30 mix 100 unit/mL subcutaneous susp (Novolin 70/30 U-100 Insulin) Syringes: 1cc Insulin Syringes #100 each 04/02/21 with [place] Liners, suspension sleeves, and #1 ea 09/11/21 socks levothyroxine 175 mcg tablet 175 mcg PO DAILY #90 tab 10/01/21 tamsulosin 0.4 mg capsule 0.4 mg PO BEDTIME #90 cap 10/01/21 Glucose: Test Strips #250 ea 10/03/21 rosuvastatin 20 mg tablet 20 mg PO BEDTIME #90 tab 10/12/21 doxycycline hyclate 100 mg tablet 100 mg PO BID 7 Days #14 tab 10/24/21 Allergies Allergy/AdvReac Type Severity Reaction Status Date / Time adhesive tape [ADHESIVE TAPE] AdvReac Mild PATIENT Verified 09/10/21 17:57 STATES IT PEELS HIS SKIN OFF lisinopril [LISINOPRIL] AdvReac Mild COUGH Verified 09/10/21 17:57 prochlorperazine AdvReac Unknown Verified 09/10/21 17:57 [PROCHLORPERAZINE] shellfish derived AdvReac Unknown Verified 09/10/21 17:57 [SHELLFISH DERIVED] Review of Systems Constitutional Constitutional: Denies fever(s) Integumentary/Breasts Comments: Redness and warmth and painful to the touch in the right upper arm Neurologic Comments: No change in his neurologic status Hematologic/Lymphatic On Anticoagulants: Yes Allergic/Immunologic Allergic/Immunologic: Reports system reviewed and no additional complaints, except as documented Patient History Medical History Atrial fibrillation (Unknown) Carotid artery disease (Unknown) Coronary artery disease (Unknown) Diabetes (Unknown) Diabetes, type 1.5, uncontrolled, managed as type 2 Erectile dysfunction (Unknown) GERD (gastroesophageal reflux disease) (Unknown) Hepatitis C (Unknown) Hx of drug abuse Hyperlipemia (Unknown) Hypertension (Unknown) Hypothyroidism (Unknown) Measles (Unknown) Myocardial infarct (10/17/06) Obstructive sleep apnea (Unknown) Peripheral vascular disease (Unknown) Sacral back pain Surgical History (Updated 10/14/21 @ 10:54 by Pb Montero MD) History of open reduction and internal fixation (ORIF) procedure (09/2010) History of penile implant Hx of cataract surgery (~2004) Hx of coronary artery bypass surgery (10/2006) S/P bilateral below knee amputation (Unknown) Family History Father Age: 86 Heart disease ETOH abuse Mother Age: 94 Heart disease Alzheimer's dementia without behavioral disturbance, Alzheimer's disease of unspecified onset Social History household members: spouse Smoking Status: Never smoker alcohol intake: never substance use type: does not use Smoking Status: Never smoker alcohol intake frequency: holidays/special occasions only Substance Use Type: marijuana, opiates and IV drugs Exam Initial Vital Signs Initial Vital Signs: Vital Signs Temperature 99.6 F 10/24/21 20:55 Pulse Rate 90 10/24/21 20:55 Respiratory Rate 22 10/24/21 20:55 Blood Pressure 166/70 H 10/24/21 20:55 Pulse Oximetry 97 10/24/21 20:55 Const General: cooperative and No in distress Cardio Pulses: radial pulses present on the right Skin Other: Patient does have the 5 cm x 5 cm area of induration just proximal to his antecubital fossa on the right. There is some overlying erythema. Is tender the touch. There is no drainage. Extrem Other: Patient is able to flex and extend at the right shoulder and of the right elbow without discomfort Procedures Abscess I/D I&D #1: Site: upper extremity Side (if applicable): right Local Anesthetic: lidocaine 1% and with bicarb Amount of anesthesia used (mL): 5 Technique: incised with #11 blade Irrigation: No Packing used?: none Complications: other (None) Course Orders Ordered: Discontinued Medications Doxycycline Hyclate (Doxycycline Hyclate 100 Mg Tablet) 100 mg PO NOW ONE Stop: 10/24/21 22:52 Last Admin: 10/24/21 23:03 Dose: 100 mg Documented by: RICKY Lidocaine/Sodium Bicarbonate (Lido 1%/Sod Bicarb 8.4% (10ml) 10 Ml Syringe) 10 ml INJ NOW ONE Stop: 10/24/21 22:27 Last Admin: 10/24/21 23:03 Dose: 10 ml Documented by: RICKY Vital Signs Vital signs: Vital Signs - 8 hr 10/24/21 20:55 Temperature 99.6 F Pulse Rate 90 Respiratory Rate 22 Blood Pressure 166/70 H Pulse Oximetry 97 MDM - Skin/Abscess/Foreign Bdy MDM Narrative Medical decision making narrative: Patient is nontoxic appearing. Bedside ultrasound does show an abscess to the area in question to his right upper extremity. Incision and drainage was performed as described above with return of purulent material. Patient tolerated the procedure well. Given his history of diabetes I will start the patient on antibiotics. First dose was given here in the emergency department a prescription was sent to the pharmacy of his choice. He was given care instructions and return precautions. He expressed understanding agreement with plan. Discharge Plan Departure Patient Disposition: Home Clinical Impression: Abscess Instructions: DI for Incision and Drainage of a Skin Abscess Activity Restrictions/Additional Instructions: Continues take all of your medications as directed. We do need to start you on antibiotics [facility] Return to the emergency department for any new or worsening symptoms Prescriptions: New doxycycline hyclate 100 mg tablet 100 mg PO BID 7 Days Qty: 14 0RF No Action metoprolol tartrate 100 mg tablet See Rx Instructions .ROUTE .COMPLEX Qty: 180 3RF Dose Instruction: take 1 tablet by mouth twice a day Rx Instructions: take 1 tablet by mouth twice a day furosemide 20 mg tablet 20 mg PO QDAY Qty: 90 3RF losartan 25 mg tablet 25 mg PO DAILY Qty: 90 3RF pantoprazole 40 mg tablet,delayed release (DR/EC) 40 mg PO DAILY Qty: 90 1RF Hold Instructions: taper with omeprazole Novolin 70/30 U-100 Insulin 100 unit/mL (70-30) suspension 30 unit SUBCUT BID Qty: 20 11RF (DME) Syringes: 1cc Insulin Syringes with [place] 0 .Route .MEDSUPPLY Qty: 100 3RF Dose Instruction: As directed Rx Instructions: Use 1 syringe with 30x12.7 mm needle to inject insulin four times daily. apixaban 5 mg tablet 5 mg PO DAILY 0RF (DME) Liners, suspension sleeves, and socks See Rx Instructions .Route .MEDSUPPLY Qty: 1 0RF Rx Instructions: As directed levothyroxine 175 mcg tablet 175 mcg PO DAILY Qty: 90 3RF (DME) Glucose: Test Strips See Rx Instructions .Route .MEDSUPPLY Qty: 250 6RF Dose Instruction: QID; Rx Instructions: Test blood sugar four times a day or as directed by rosuvastatin 20 mg tablet 20 mg PO BEDTIME Qty: 90 3RF tamsulosin 0.4 mg capsule 0.4 mg PO BEDTIME Qty: 90 3RF aspirin 81 mg tablet,delayed release (DR/EC) 2 tab PO DAILY 0RF Referrals: Pb Montero MD [Primary Care Provider] -
[2021-10-24] MEDS: LIDO 1%/SOD BICARB 8.4% (10ML) 10 ML SYRINGE INJ (23:03)
[2021-10-24] MEDS: DOXYCYCLINE HYCLATE 100 MG TABLET PO (23:03)
== END 2021-10-24 23:06 | disposition home or self-care (01) ==
PROVIDERS: Emergency Provider Emergency Medicine; PCP Student in an Organized Health Care Education/Training Program
DX: L02.413 Cutaneous abscess of right upper limb (principal); E11.9 Type 2 diabetes mellitus without complications; Z79.01 Long term (current) use of anticoagulants
CPT/HCPCS: 10060; 99283

== ENCOUNTER 2021-10-31 21:27 | Emergency (ER) | payer MEDICARE, OTHER, SELFPAY ==
[2020-12-20 13:40] VITALS: BMI 40.7
[2021-10-31] VITALS (9 sets, daily range): BP systolic 137–189; BP diastolic 65–84; PULSE 68–81; RESP 18; TEMP 36.6; O2SAT 94–99; BMI 45.7
--- NOTE | 2021-10-31 23:19 | ED.SKABFB ---
HPI - Skin/Abscess/Foreign Bdy General Chief complaint: Skin/Abscess/Foreign Body Stated complaint: swollen rt hand and forearm Time Seen by Provider: 10/31/21 23:05 Source: patient Mode of arrival: Ambulatory Limitations: no limitations History of Present Illness HPI narrative: Patient is a 75-year-old male history of diabetes, on anticoagulation chronic back pain for which he injects oxycodone that he buys off the street along with heroin presenting with ongoing right hand pain and swelling. He was seen and evaluated here on 10/24/2021 for right antecubital fossa abscess that time he also had a right hand abscess where he tried to inject as well. The hand abscess was not I and D but the other 1 was. He actually has had significant improvement he was put on 7 days of doxycycline which he has taken and has had significant improvement. However he says someone shook his right hand and he felt squeezing. It continues to swell off and on he has minimal redness no fever or chills. But his right hand is obviously more swollen than the left. He denies any other injury. Related Data Home Medications Medication Instructions Recorded Confirmed aspirin 81 mg tablet,delayed 2 tab PO DAILY 09/16/18 09/10/21 release apixaban 5 mg tablet 5 mg PO DAILY tab 08/22/21 09/10/21 Previous Rx's Medication Instructions Recorded metoprolol tartrate 100 mg tablet See Rx Instructions .ROUTE 10/16/20 .COMPLEX #180 tablet furosemide 20 mg tablet 20 mg PO QDAY #90 tab 10/20/20 losartan 25 mg tablet 25 mg PO DAILY #90 tab 10/20/20 pantoprazole 40 mg tablet,delayed 40 mg PO DAILY #90 tab 02/01/21 release insulin human U-100 NPH-regulr 30 unit (0.3 mL) SUBCUT BID #20 ml 03/26/21 70-30 mix 100 unit/mL subcutaneous susp (Novolin 70/30 U-100 Insulin) Syringes: 1cc Insulin Syringes #100 each 04/02/21 with Saucier Liners, suspension sleeves, and #1 ea 09/11/21 socks levothyroxine 175 mcg tablet 175 mcg PO DAILY #90 tab 10/01/21 tamsulosin 0.4 mg capsule 0.4 mg PO BEDTIME #90 cap 10/01/21 Glucose: Test Strips #250 ea 10/03/21 rosuvastatin 20 mg tablet 20 mg PO BEDTIME #90 tab 10/12/21 doxycycline hyclate 100 mg capsule 100 mg PO BID #6 cap 10/31/21 Allergies Allergy/AdvReac Type Severity Reaction Status Date / Time adhesive tape [ADHESIVE TAPE] AdvReac Mild PATIENT Verified 09/10/21 17:57 STATES IT PEELS HIS SKIN OFF lisinopril [LISINOPRIL] AdvReac Mild COUGH Verified 09/10/21 17:57 prochlorperazine AdvReac Unknown Verified 09/10/21 17:57 [PROCHLORPERAZINE] shellfish derived AdvReac Unknown Verified 09/10/21 17:57 [SHELLFISH DERIVED] Review of Systems Review of Systems Narrative: GENERAL: Denies chills,fever HEENT: Denies throat pain RESPIRATORY: Denies dyspnea, cough, wheezing CARDIOVASCULAR: Denies chest pain, palpitations GASTROINTESTINAL: Denies nausea, vomiting MUSCULOSKELETAL: See HPI SKIN: See HPI NEUROLOGIC: Denies weakness, dizziness, headache, numbness 8 point review of systems is negative except for those stated above and HPI Patient History Medical History Atrial fibrillation (Unknown) Carotid artery disease (Unknown) Coronary artery disease (Unknown) Diabetes (Unknown) Diabetes, type 1.5, uncontrolled, managed as type 2 Erectile dysfunction (Unknown) GERD (gastroesophageal reflux disease) (Unknown) Hepatitis C (Unknown) Hx of drug abuse Hyperlipemia (Unknown) Hypertension (Unknown) Hypothyroidism (Unknown) Measles (Unknown) Myocardial infarct (10/17/06) Obstructive sleep apnea (Unknown) Peripheral vascular disease (Unknown) Sacral back pain Surgical History (Updated 10/14/21 @ 10:54 by Pb Montero MD) History of open reduction and internal fixation (ORIF) procedure (09/2010) History of penile implant Hx of cataract surgery (~2004) Hx of coronary artery bypass surgery (10/2006) S/P bilateral below knee amputation (Unknown) Family History Father Age: 86 Heart disease ETOH abuse Mother Age: 94 Heart disease Alzheimer's dementia without behavioral disturbance, Alzheimer's disease of unspecified onset Social History household members: spouse Smoking Status: Never smoker alcohol intake: never substance use type: does not use Smoking Status: Never smoker alcohol intake frequency: holidays/special occasions only Substance Use Type: marijuana, heroin and IV drugs Exam Initial Vital Signs Initial Vital Signs: Vital Signs Pulse Rate 77 10/31/21 21:43 Pulse Oximetry 98 10/31/21 21:43 GENERAL: Alert 75-year-old male CARDIOVASCULAR: peripheral pulses in tact, cap refill <2 sec RESPIRATORY: No respiratory distress, speaks in full sentences without difficulty EXTREMITIES: Normal range of motion, no clubbing or edema. Neurovascularly intact. Bilateral [id number] amputation Right hand is obviously swollen able to flex and extend fingers however her mobility is limited due to swelling. Distal radial pulses intact. Mild erythema no gross bony deformity NEUROLOGICAL: Cranial nerves II through XII grossly intact. Normal gait and speech. SKIN: Abscess on right arm has healed no fluctuation. Right hand minimally erythematous no fluctuation Course Orders Ordered: ED Orders 10/31/21 23:27 XR hand RT min 3V Stat Discontinued Medications Acetaminophen (Acetaminophen 325 Mg Tablet) 650 mg PO NOW ONE Stop: 10/31/21 23:28 Last Admin: 10/31/21 23:48 Dose: 650 mg Documented by: MERA Vital Signs Vital signs: Vital Signs - 8 hr 10/31/21 21:43 10/31/21 21:44 10/31/21 21:46 Temperature 97.8 F Pulse Rate 77 79 80 Respiratory Rate 18 Blood Pressure 189/84 H 189/84 H Pulse Oximetry 98 98 99 10/31/21 22:00 10/31/21 22:30 10/31/21 23:00 Temperature Pulse Rate 81 81 73 Respiratory Rate Blood Pressure 137/65 153/68 H Pulse Oximetry 94 95 95 10/31/21 23:01 10/31/21 23:30 10/31/21 23:31 Temperature Pulse Rate 68 73 76 Respiratory Rate Blood Pressure 156/68 H 154/68 H Pulse Oximetry 94 97 97 MDM - Skin/Abscess/Foreign Bdy Imaging Data Extremity x-ray #1: Radiologist's Impression: PROCEDURE:? XR HAND RT MIN 3V ? INDICATIONS:? swelling, pain ? TECHNIQUE:? 3 views of the hand(s) acquired.? ? COMPARISON:? None. ? FINDINGS:? ? Bones:? Cortical irregularity involving the ulnar aspect of the base of the right 4th metacarpal.? This is seen only on the AP view.? Carpal bones are normally aligned.? No suspicious bony lesions.? Polyarticular background degenerative changes of the right hand predominantly involving the interphalangeal joints. ? Soft tissues:? No suspicious soft tissue calcifications.? Moderate diffuse soft tissue swelling of the right hand.? Vascular calcifications are present. ? ? IMPRESSION:? Cortical irregularity involving the ulnar side at the base of the right 4th metacarpal is suspicious for fracture.? Recommend correlation with examination for point tenderness in this region.? Moderate soft tissue swelling of the right hand. ? ? Dictated by: Paulino Murphy M.D. on 11/01/2021 at 0:03 ? ? MDM Narrative Medical decision making narrative: Patient's x-ray does show concern for irregularity and possible fracture at the 4th MCP is. However patient is examined he is non tender over the 4th MCP he is tender between the thumb and index finger no obvious abscess. He has been on 7 days of doxycycline, at this time recommend continuing doxycycline for full 10 days. He did get 1 dose of ibuprofen in the emergency department but does admit that he is taking his Eliquis for atrial fibrillation. At this time possible old fracture. It does not clinically correlate with his exam or history. Discharge Plan Departure Patient Disposition: Home Clinical Impression: Cellulitis Instructions: DI for Cellulitis -- Adult Activity Restrictions/Additional Instructions: *You have been diagnosed with mild infection of right hand *What to do: Keep hand elevated, ice 20-30 minutes at a time. Will extend antibiotics for the next 3 days see if helps. X-ray is shows 1 area of your hand that may be an old fracture. Please stop using drugs on the street. *Continue to take medications as directed Doxycycline 100 mg twice a day for 3 days--this will give you a full 10 day course, [facility] *Follow up with your primary care provider in 2-3 days *Return to ER if you should have increasing redness, swelling, fever, streaking, pain with or any new, worsening or concerning symptoms Prescriptions: New doxycycline hyclate 100 mg capsule 100 mg PO BID Qty: 6 0RF No Action metoprolol tartrate 100 mg tablet See Rx Instructions .ROUTE .COMPLEX Qty: 180 3RF Dose Instruction: take 1 tablet by mouth twice a day Rx Instructions: take 1 tablet by mouth twice a day furosemide 20 mg tablet 20 mg PO QDAY Qty: 90 3RF losartan 25 mg tablet 25 mg PO DAILY Qty: 90 3RF pantoprazole 40 mg tablet,delayed release (DR/EC) 40 mg PO DAILY Qty: 90 1RF Hold Instructions: taper with omeprazole Novolin 70/30 U-100 Insulin 100 unit/mL (70-30) suspension 30 unit SUBCUT BID Qty: 20 11RF (DME) Syringes: 1cc Insulin Syringes with Saucier 0 .Route .MEDSUPPLY Qty: 100 3RF Dose Instruction: As directed Rx Instructions: Use 1 syringe with 30x12.7 mm needle to inject insulin four times daily. apixaban 5 mg tablet 5 mg PO DAILY 0RF (DME) Liners, suspension sleeves, and socks See Rx Instructions .Route .MEDSUPPLY Qty: 1 0RF Rx Instructions: As directed levothyroxine 175 mcg tablet 175 mcg PO DAILY Qty: 90 3RF (DME) Glucose: Test Strips See Rx Instructions .Route .MEDSUPPLY Qty: 250 6RF Dose Instruction: QID; Rx Instructions: Test blood sugar four times a day or as directed by . rosuvastatin 20 mg tablet 20 mg PO BEDTIME Qty: 90 3RF tamsulosin 0.4 mg capsule 0.4 mg PO BEDTIME Qty: 90 3RF aspirin 81 mg tablet,delayed release (DR/EC) 2 tab PO DAILY 0RF Referrals: Pb Montero MD [Primary Care Provider] -
--- NOTE | 2021-10-31 23:27 | DI.RAD.S_ITS ---
PROCEDURE: XR HAND RT MIN 3V INDICATIONS: swelling, pain TECHNIQUE: 3 views of the hand(s) acquired. COMPARISON: None. FINDINGS: Bones: Cortical irregularity involving the ulnar aspect of the base of the right 4th metacarpal. This is seen only on the AP view. Carpal bones are normally aligned. No suspicious bony lesions. Polyarticular background degenerative changes of the right hand predominantly involving the interphalangeal joints. Soft tissues: No suspicious soft tissue calcifications. Moderate diffuse soft tissue swelling of the right hand. Vascular calcifications are present. IMPRESSION: Cortical irregularity involving the ulnar side at the base of the right 4th metacarpal is suspicious for fracture. Recommend correlation with examination for point tenderness in this region. Moderate soft tissue swelling of the right hand. Dictated by: Paulino Murphy M.D. on 11/01/2021 at 0:03 Approved by: Paulino Murphy M.D. on 11/01/2021 at 0:06
[2021-10-31] MEDS: ACETAMINOPHEN 325 MG TABLET 650 MG PO (23:48)
== END 2021-11-01 00:21 | disposition home or self-care (01) ==
PROVIDERS: Emergency Provider Emergency Medicine; PCP Student in an Organized Health Care Education/Training Program
DX: L03.113 Cellulitis of right upper limb (principal); Z79.01 Long term (current) use of anticoagulants
CPT/HCPCS: 73130; 99283

== ENCOUNTER 2021-11-02 20:50 | Inpatient (IN) | payer MEDICARE, OTHER, SELFPAY ==
[2020-12-20 13:40] VITALS: BMI 40.7
[2021-11-02 20:55] VITALS: BP 187/86; PULSE 117; RESP 22; TEMP 36.8; O2SAT 95
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
--- NOTE | 2021-11-02 21:27 | PC.NURSE ---
attempted iv x 3 w/o success. Pt states he is an on/off drug user and is a difficult iv start. Dr. Fraser in to evaluate pt.
[2021-11-02 21:39] VITALS: PULSE 112; O2SAT 94
[2021-11-02 22:00] VITALS: PULSE 105; O2SAT 94
[2021-11-02 22:30] VITALS: PULSE 107; O2SAT 96
[2021-11-02 22:42] LABS: INR 1.4 (0.9-1.3); Prothrombin Time 16.3 SECONDS (10.1-12.7)
[2021-11-02 22:43] LABS: Add Manual Diff / Slide Review NO; Basophils Absolute Auto 100 /uL (0-100); Basophils Percent Auto 0.7 % (0-2); Eosinophils Absolute Auto 100 /uL (0-450); Eosinophils Percent Auto 1.1 % (2-4); Hematocrit 36.7 % (41-53); Hemoglobin 12.4 g/dL (13.5-17.5); Lymphocytes Absolute Auto 1600 /uL (1100-4500); Mean Corpuscular HGB Conc 33.8 % (30-36); Mean Corpuscular Hemoglobin 28.2 PG (26-34); Mean Corpuscular Volume 83.4 fL (80-100); Monocytes Absolute Auto 700 /uL (0-900); Monocytes Percent Auto 8.8 % (3-14); Neutrophils Absolute Auto 5800 /uL (1500-7000); Neutrophils Percent Auto 70.4 % (50-75); Platelet Count 184 X10^3/uL (150-400); Red Cell Distribution Width 13.3 % (11.6-14.8); White Blood Cell Count 8.3 X10^3/uL (4.5-11.0)
[2021-11-02 22:44] VITALS: BP 192/86; PULSE 105; O2SAT 96
[2021-11-02 22:47] LABS: Alanine Aminotransferase 13 IU/L (<50); Albumin 3.8 g/dL (3.5-5.0); Albumin Globulin Ratio 1.2 (1.0-2.8); Alkaline Phosphatase 102 U/L (38-126); Aspartate Aminotransferase 20 IU/L (17-59); BUN Creatinine Ratio 24.1 (6-22); Bilirubin Total 0.9 mg/dL (0.2-1.3); Blood Urea Nitrogen 21 mg/dL (9-20); Calcium 9.3 mg/dL (8.4-10.2); Carbon Dioxide 28 mmol/L (22-32); Chloride 99 mmol/L (98-107); Creatine Kinase 29 U/L (55-170); Estimated Glomerular Filt Rate > 60.0 mL/min (>60); Globulin 3.1 g/dL (1.7-4.1); Glucose 410 mg/dL (80-110); HEMOLYSIS < 15 (0-50); Potassium 4.4 mmol/L (3.4-5.1); Sodium 131 mmol/L (137-145); Total Protein 6.9 g/dL (6.3-8.2)
[2021-11-02 22:58] LABS: Troponin I < 0.012 ng/mL (0.01-0.034)
[2021-11-02 23:00] LABS: Lactate (Lactic Acid) 1.1 mmol/L (0.7-2.1)
[2021-11-02 23:02] LABS: PTT Partial Thromboplastin Tim 36 SECONDS (26.4-36.2)
[2021-11-02 23:03] LABS: Procalcitonin 0.07 ng/mL (<0.5)
[2021-11-02 23:46] VITALS: BP 151/70; PULSE 103; RESP 22; TEMP 37.9; O2SAT 98
[2021-11-03] VITALS (7 sets, daily range): BP systolic 141–163; BP diastolic 41–82; PULSE 84–109; RESP 18–21; TEMP 36.7–37.9; O2SAT 95–98; BMI 41.5
--- NOTE | 2021-11-03 00:12 | PM.HP.1 ---
History of Present Illness History of Present Illness Date Patient Seen: 11/02/21 Time Patient Seen: 23:30 Date of Onset of Symptoms: 10/31/21 Chief complaint: RT HAND SWELLING HURTS Narrative: This is a 75 yo man with rate controlled A. Fib on apixaban, uncontrolled DM on insulin, CAD s/p CABG, and PAD s/p bilateral BKA presents with worsening dorsal right hand pain, swelling and erythema. Patient was initially seen in the ED on 10/24/21 for abscess in the right antecubital fossa. Patient underwent I+D and was placed on doxycycline. He returned to the ED on 10/31 because of right hand pain and swelling. There was no evidence of abscess on imaging so no I+D was performed at the time. He was discharged with an extension of the doxycycline for an additional 3 days. Unfortunately, the swelling of the hand and pain have become intolerable so patient returned to the ED today. Patient reports he has been adherent to his antibiotic course. The pain in the right antecubital fossa is resolved but the hand pain is much worse. Anytime the hands gets bumped it causes extreme pain which radiates into the forearm. Nothing really makes it better. He tries to keep it elevated which helps reduce the swelling. He is unable to make a fist due to swelling and pain. He denies any recent IVDU. Denies fever, chills, headache, chest pain, shortness of breath, nausea, vomiting, diarrhea. In the ED, the patient was afebrile. He had an elevated blood pressure of 192/86 and was tachycardic at 105. On exam, he had significant swelling across the dorsum of the right hand. Pertinent labs include normal WBC count, mild anemia, sodium 131, BUN 21, glucose 410, procalcitonin 0.07. He was treated with IVF and PICC line was ordered for vancomycin. Blood cultures were obtained prior to starting antibiotics. He is admitted for treatment of right hand cellulitis. Patient History Medical History Atrial fibrillation (Unknown) Carotid artery disease (Unknown) Coronary artery disease (Unknown) Diabetes (Unknown) Diabetes, type 1.5, uncontrolled, managed as type 2 Erectile dysfunction (Unknown) GERD (gastroesophageal reflux disease) (Unknown) Hepatitis C (Unknown) Hx of drug abuse Hyperlipemia (Unknown) Hypertension (Unknown) Hypothyroidism (Unknown) Measles (Unknown) Myocardial infarct (10/17/06) Obstructive sleep apnea (Unknown) Peripheral vascular disease (Unknown) Sacral back pain Surgical History History of open reduction and internal fixation (ORIF) procedure (09/2010) History of penile implant Hx of cataract surgery (~2004) Hx of coronary artery bypass surgery (10/2006) S/P bilateral below knee amputation (Unknown) Family & Social History Family History Father Age: 86 Heart disease ETOH abuse Mother Age: 94 Heart disease Alzheimer's dementia without behavioral disturbance, Alzheimer's disease of unspecified onset Social History: household members spouse Safety & Behavioral: Feels Safe in Current Yes Environment Been Physically Hurt or No Threatened By a Person Tobacco & Substance use: Smoking Status Never smoker alcohol intake never alcohol intake frequency holiday/special occasion Substance Use Type marijuana,IV drugs,heroin Meds Home Medications and Allergies Home Medications Medication Instructions Recorded Confirmed Type aspirin 81 mg tablet,delayed 2 tab PO DAILY 09/16/18 09/10/21 History release metoprolol tartrate 100 mg tablet See Rx Instructions .ROUTE 10/16/20 09/10/21 Rx .COMPLEX #180 tablet furosemide 20 mg tablet 20 mg PO QDAY #90 tab 10/20/20 09/10/21 Rx losartan 25 mg tablet 25 mg PO DAILY #90 tab 10/20/20 09/10/21 Rx pantoprazole 40 mg tablet,delayed 40 mg PO DAILY #90 tab 02/01/21 10/01/21 Rx release insulin human U-100 NPH-regulr 30 unit (0.3 mL) SUBCUT BID #20 ml 03/26/21 09/10/21 Rx 70-30 mix 100 unit/mL subcutaneous susp (Novolin 70/30 U-100 Insulin) Syringes: 1cc Insulin Syringes #100 each 04/02/21 09/10/21 Rx with [place] apixaban 5 mg tablet 5 mg PO DAILY tab 08/22/21 09/10/21 History Liners, suspension sleeves, and #1 ea 09/11/21 Rx socks levothyroxine 175 mcg tablet 175 mcg PO DAILY #90 tab 10/01/21 Rx tamsulosin 0.4 mg capsule 0.4 mg PO BEDTIME #90 cap 10/01/21 10/01/21 Rx Glucose: Test Strips #250 ea 10/03/21 Rx rosuvastatin 20 mg tablet 20 mg PO BEDTIME #90 tab 10/12/21 Rx doxycycline hyclate 100 mg capsule 100 mg PO BID #6 cap 10/31/21 Rx Allergies Allergy/AdvReac Type Severity Reaction Status Date / Time adhesive tape [ADHESIVE TAPE] AdvReac Mild PATIENT Verified 09/10/21 17:57 STATES IT PEELS HIS SKIN OFF lisinopril [LISINOPRIL] AdvReac Mild COUGH Verified 09/10/21 17:57 prochlorperazine AdvReac Unknown Verified 09/10/21 17:57 [PROCHLORPERAZINE] shellfish derived AdvReac Unknown Verified 09/10/21 17:57 [SHELLFISH DERIVED] Review of Systems Constitutional Constitutional: Denies body ache(s), Denies chills, Denies excessive sweating, Denies fatigue, Denies fever(s) and Denies headache(s) Eyes Eyes: Denies change in vision and Denies eye discharge ENT Ears, Nose, Mouth, and Throat: No dizziness, No headache(s), No mouth pain and No sore throat Cardiovascular Cardiovascular: Denies chest pain, Denies rapid heart rate, Reports irregular heart rhythm, Denies lightheadedness and Denies dyspnea Respiratory Respiratory: Denies chest congestion, Denies cough and Denies dyspnea Gastrointestinal Gastrointestinal: Denies abdominal pain, Denies constipation, Denies nausea and Denies vomiting Genitourinary Genitourinary: Denies oliguria, Denies difficulty urinating, Denies dysuria and Reports nocturia Musculoskeletal Musculoskeletal: Reports back pain (chronic), Reports arthralgias, Reports joint swelling and Reports limited range of motion (right hand) Integumentary/Breasts Skin/Breast: Reports dry skin and Reports rash (psoriasis) Neurologic Neurologic: Denies dizziness, Denies headache(s) and Denies localized weakness Psychiatric Psychiatric: Reports abnormal sleep pattern Endocrine Endocrine: Denies excessive sweating and Denies fatigue Hematologic/Lymphatic Hematologic/Lymphatic: Denies easy bleeding, Denies easy bruising and Denies lymphadenopathy Exam Vital Signs (past 8 hours): - 11/02/21 20:55 11/02/21 21:39 11/02/21 22:00 Temperature 98.3 F Pulse Rate 117 H 112 H 105 H Respiratory Rate 22 Blood Pressure 187/86 H Pulse Oximetry 95 94 94 11/02/21 22:30 11/02/21 22:44 Temperature Pulse Rate 107 H 105 H Respiratory Rate Blood Pressure 192/86 H Pulse Oximetry 96 96 Oxygen Delivery Method Room Air Const General: cooperative, healthy appearing, comfortable, well developed, well groomed and No acute distress [facility] Head: normal to inspection, normocephalic and atraumatic Eyes Periorbital: periorbital findings normal Eyelids: eyelids normal Conjunctivae: conjunctivae normal Sclera: sclerae normal Pupils: PERRL EOM: EOM intact bilaterally Neck Neck: normal visual inspection, full ROM, trachea midline, supple and No lymphadenopathy Chest Chest: normal inspection of the chest Resp Effort & Inspection: normal respiratory effort, able to speak in complete sentences, no audible wheezes and no cough Auscultation: clear to auscultation bilaterally, no crackles, no rhonchi and no wheezes Cardio Rate: tachycardic Rhythm: abnormal rhythm irregularly irregular Heart Sounds: S1 normal, S2 normal, no murmurs and no rubs Pulses: normal peripheral pulses GI Inspection: normal to inspection and non-distended Palpation: soft, No guarding and No tender Auscultation: normal bowel sounds Skin General: other (psoriatic plaques on arms) Lesions: lesion noted Neuro General: patient alert, patient awake, patient oriented x3, moves all extremities, no focal motor deficits and CN's II-XI intact bilaterally Extrem Other: Healing incision in right antecubital fossa. Non tender. No fluctuance but still with induration. Right hand swollen and erythematous across the dorsum. Maximum tenderness seems to be at the 1st MCP and there is fluctuance present. Patient is unable to make a fist due to swelling and pain. Objective Labs Result Diagrams: 11/02/21 22:20 11/02/21 22:20 Labs: Laboratory Results - last 24 hr 11/02/21 11/02/21 11/02/21 22:20 22:20 22:20 WBC 8.3 RBC 4.40 L Hgb 12.4 L Hct 36.7 L MCV 83.4 MCH 28.2 MCHC 33.8 RDW 13.3 Plt Count 184 Neut % (Auto) 70.4 Lymph % (Auto) 19.0 L [place] % (Auto) 8.8 Eos % (Auto) 1.1 L Baso % (Auto) 0.7 Neut # (Auto) 5800 Lymph # (Auto) 1600 [place] # (Auto) 700 Eos # (Auto) 100 Baso # (Auto) 100 PT 16.3 H INR 1.4 H APTT Sodium 131 L Potassium 4.4 Chloride 99 Carbon Dioxide 28 BUN 21 H Creatinine 0.87 Estimated GFR > 60.0 BUN/Creatinine Ratio 24.1 H Glucose 410 H Lactate Calcium 9.3 Total Bilirubin 0.9 AST 20 ALT 13 Alkaline Phosphatase 102 Total Creatine Kinase 29 L CK-MB (CK-2) TNP CK-MB (CK-2) Rel Index TNP Troponin I < 0.012 Total Protein 6.9 Albumin 3.8 Globulin 3.1 Albumin/Globulin Ratio 1.2 Procalcitonin 0.07 11/02/21 11/02/21 22:20 22:20 WBC RBC Hgb Hct MCV MCH MCHC RDW Plt Count Neut % (Auto) Lymph % (Auto) [place] % (Auto) Eos % (Auto) Baso % (Auto) Neut # (Auto) Lymph # (Auto) [place] # (Auto) Eos # (Auto) Baso # (Auto) PT INR APTT 36 Sodium Potassium Chloride Carbon Dioxide BUN Creatinine Estimated GFR BUN/Creatinine Ratio Glucose Lactate 1.1 Calcium Total Bilirubin AST ALT Alkaline Phosphatase Total Creatine Kinase CK-MB (CK-2) CK-MB (CK-2) Rel Index Troponin I Total Protein Albumin Globulin Albumin/Globulin Ratio Procalcitonin Assessment & Plan Assessment & Plan narrative: This is a 75 yo man with rate controlled A. Fib on apixaban, uncontrolled DM on insulin, CAD s/p CABG, and PAD s/p bilateral BKA now admitted for right hand cellulitis and possible phlegmon, failed by outpatient antibiotics. Patient tonight denies recent IVDU but at prior ED visit he reports that he injected into both the antecubital fossa and the hand. Bedside U/S was performed in the ED and there was no obvious abscess. He will be started on ceftriaxone and vancomycin while blood cultures are pending. PICC line is being placed. Antibiotics will be deescalated pending culture results. He did not meet sepsis criteria. Hand surgery was contacted by the ED but unlikely that intervention will be needed as this does not appear to be an acute flexor tenosynovitis. Patient also presented with blood glucose of 410 today. Patient reports he has been adherent with his insulin although he takes his 70/30 TID if his sugars are high. Suspect that the soft tissue infection may be contributing to the hyperglycemia but also suspect there is a component of poor control at baseline. Plan: Acute right hand cellulitis in the setting of uncontrolled DM, Sepsis/SIRS criteria not met - Bedside U/S negative for fluid collection - start ceftriaxone and vancomycin - PICC line placement pending - Orthopedics contacted by ED. Doubt intervention needed - Pharmacy consulted for vancomycin dosing - ? IVDU as cause of abscess Hyperglycemia with uncontrolled DM - check A1c - continue 70/30 bid - sliding scale insulin lispro ordered with ACHS Accuchecks - Carb control diet ordered - Follow up with PCP as outpatient for further management Mild Hyponatremia, present on admission - corrects to 136 in setting of hyperglycemia - trend labs daily Atrial fibrillation, currently rate controlled - continue apixaban - continue metoprolol Mild Azotemia, suspect due to hypovolemia - gentle IVF resuscitation - trend labs Hx of IVDU - urine tox screen pending Diet: Carb Control Fluids: NS @75 mL/hr x 12 hrs Electrolytes: mild hyponatremia DVT: on Eliquis Code: Full Proxy: Mary Beth Dispo: anticipate home Time Spent With Patient Critical Care time: I spent a total of [] minutes of critical care time on this patient's care today; this time is exclusive of procedural time. Quality MIPS - Admit I confirm the patient?s Advance Care Plan is present, Code status is documented, Surrogate decision maker is in patient?s record [If Yes, STOP here]: Yes
[2021-11-03 00:33] LABS: COVID19 - ADMIT (NP swab/PCR) Negative (Negative)
[2021-11-03] MEDS: OXYCODONE IR 5 MG TABLET PO ×5 (00:52→21:06)
--- NOTE | 2021-11-03 01:36 | DI.RAD.S_ITS ---
PROCEDURE: XR CHEST 1V INDICATIONS: PICC placement TECHNIQUE: One view of the chest was acquired. COMPARISON: None. FINDINGS: Surgical changes and devices: Left PICC line tip is in the distal SVC. There are median sternotomy changes. Lungs and pleura: Lungs are clear. No pleural effusions or pneumothorax. Mediastinum: Mediastinal contours appear normal. Heart size is normal. Bones and chest wall: No suspicious bony lesions. Overlying soft tissues appear unremarkable. IMPRESSION: Left PICC line tip projects over the expected location of the distal SVC. Dictated by: Starla Jimenez M.D. on 11/03/2021 at 2:58 Approved by: Starla Jimenez M.D. on 11/03/2021 at 2:58
[2021-11-03] MEDS: VANCOMYCIN 1,500 MG/300 ML PIGGYBACK 200 MG IV ×2 (01:40→13:39)
[2021-11-03] MEDS: SODIUM CHLORIDE 0.9% 1,000 ML 75 ML IV (01:45)
[2021-11-03] MEDS: cefTRIAXone 1,000 MG in SODIUM CHLORIDE 0.9% 100 ML 200 ML IV ×2 (03:29→23:38)
[2021-11-03] MEDS: ACETAMINOPHEN 325 MG TABLET 650 MG PO (05:38)
[2021-11-03] MEDS: MORPHINE 2 MG/ML INJ IV ×2 (05:39→14:29)
[2021-11-03 05:40] LABS: Add Manual Diff / Slide Review NO; Basophils Absolute Auto 0 /uL (0-100); Basophils Percent Auto 0.6 % (0-2); Eosinophils Absolute Auto 100 /uL (0-450); Eosinophils Percent Auto 1.2 % (2-4); Hematocrit 32.1 % (41-53); Hemoglobin 10.9 g/dL (13.5-17.5); Lymphocytes Absolute Auto 1700 /uL (1100-4500); Lymphocytes Percent Auto 24.1 % (25-40); Mean Corpuscular HGB Conc 33.8 % (30-36); Mean Corpuscular Hemoglobin 28.1 PG (26-34); Mean Corpuscular Volume 83.1 fL (80-100); Monocytes Absolute Auto 700 /uL (0-900); Monocytes Percent Auto 9.6 % (3-14); Neutrophils Absolute Auto 4600 /uL (1500-7000); Neutrophils Percent Auto 64.5 % (50-75); Platelet Count 176 X10^3/uL (150-400); Red Blood Cell Count 3.87 X10^6/uL (4.5-5.9); White Blood Cell Count 7.2 X10^3/uL (4.5-11.0)
[2021-11-03 05:51] LABS: BUN Creatinine Ratio 23.8 (6-22); Blood Urea Nitrogen 15 mg/dL (9-20); Calcium 7.5 mg/dL (8.4-10.2); Carbon Dioxide 24 mmol/L (22-32); Chloride 107 mmol/L (98-107); Estimated Glomerular Filt Rate > 60.0 mL/min (>60); Glucose 211 mg/dL (80-110); HEMOLYSIS < 15 (0-50); Potassium 3.3 mmol/L (3.4-5.1); Sodium 134 mmol/L (137-145)
[2021-11-03 06:00] LABS: Hemoglobin A1C% w Est Avg Glu 8.2 % (4.0-6.0)
[2021-11-03 06:32] LABS: Ur Creatinine 20 (Normal)
[2021-11-03 06:33] LABS: UR Morphine/Opiate cutoff 300 Negative (Negative); Ur Specific Gravity 1.025 (Normal); Urine Amphetamines Negative (Negative); Urine Barbiturates Negative (Negative); Urine Benzodiazepines Negative (Negative); Urine Cocaine Negative (Negative); Urine MDMA Negative (Negative); Urine Methadone Negative (Negative); Urine Methamphetamines Negative (Negative); Urine Oxycodone Positive (Negative); Urine Phencyclidine Negative (Negative); Urine Tetrahydrocannabinol Negative (Negative); Urine Tricyclic Antidepressant Negative (Negative); Urine pH 5 (Normal)
[2021-11-03] MEDS: LEVOTHYROXINE 100 MCG TABLET PO (06:51)
[2021-11-03] MEDS: LEVOTHYROXINE 75 MCG TABLET PO (06:51)
--- NOTE | 2021-11-03 07:55 | PC.NURSE ---
Admit Note- Patient arrived to room via wheelchair from ER at 2350. Patient alert and oriented and able to make needs known to staff. Admit questions done, medications reviewed, physical assessment done, and skin check completed. Patient oriented to bed and bed controls. room, lights, menu, phone, bathroom, and call eason/tv remote. Safety measures in place. Patient agrees to call for assistance. Call eason and phone within reach. Will continue to monitor.
[2021-11-03] MEDS: INSULIN LISPRO 100 UNIT/ML 3ML VIAL SUBCUT ×3 (08:22→21:04)
[2021-11-03] MEDS: INSULIN NPH/REG 70-30 100 UNIT/ML 3ML VIAL 10 UNIT SUBCUT (08:23)
[2021-11-03] MEDS: POTASSIUM CHLORIDE 20 MEQ TAB 40 MEQ PO ×2 (09:21→14:30)
[2021-11-03] MEDS: APIXABAN 5 MG TABLET PO ×2 (09:21→21:06)
[2021-11-03] MEDS: LOSARTAN 25 MG TABLET PO (09:22)
[2021-11-03] MEDS: METOPROLOL IR 50 MG TABLET 100 MG PO ×2 (09:22→21:06)
[2021-11-03] MEDS: PANTOPRAZOLE DR 40 MG TABLET PO (09:22)
[2021-11-03] MEDS: ASPIRIN EC 81 MG TABLET 162 MG PO (09:22)
[2021-11-03] MEDS: INSULIN NPH/REG 70-30 100 UNIT/ML 3ML VIAL 20 UNIT SUBCUT (09:24)
--- NOTE | 2021-11-03 09:48 | P.CONS_ITS ---
History of Present Illness Consult details Date Patient Seen: 11/03/21 Time Patient Seen: 09:49 Chief complaint: RT HAND SWELLING HURTS Reason for consult: Evaluate for possible hand abscess Requesting provider: Kierra Mora Narrative: Patient is a 75-year-old [id number] gentleman with diabetes mellitus. He has had a series of infections in the right upper extremity, initially with an abscess around his antecubital fossa which was drained successfully. 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 He has had swelling in the dorsum of the hand which was evaluated in the emergency room and treated with oral antibiotics. This did not improve and he returned last night for re-evaluation. Meds Home Medications and Allergies Home Medications Medication Instructions Recorded Confirmed Type aspirin 81 mg tablet,delayed 2 tab PO DAILY 09/16/18 11/03/21 History release metoprolol tartrate 100 mg tablet See Rx Instructions .ROUTE 10/16/20 11/03/21 Rx .COMPLEX #180 tablet furosemide 20 mg tablet 20 mg PO QDAY #90 tab 10/20/20 11/03/21 Rx losartan 25 mg tablet 25 mg PO DAILY #90 tab 10/20/20 11/03/21 Rx pantoprazole 40 mg tablet,delayed 40 mg PO DAILY #90 tab 02/01/21 11/03/21 Rx release insulin human U-100 NPH-regulr 30 unit (0.3 mL) SUBCUT BID #20 ml 03/26/21 11/03/21 Rx 70-30 mix 100 unit/mL subcutaneous susp (Novolin 70/30 U-100 Insulin) Syringes: 1cc Insulin Syringes #100 each 04/02/21 09/10/21 Rx with [place] apixaban 5 mg tablet 5 mg PO DAILY tab 08/22/21 11/03/21 History Liners, suspension sleeves, and #1 ea 09/11/21 Rx socks levothyroxine 175 mcg tablet 175 mcg PO DAILY #90 tab 10/01/21 11/03/21 Rx tamsulosin 0.4 mg capsule 0.4 mg PO BEDTIME #90 cap 10/01/21 11/03/21 Rx Glucose: Test Strips #250 ea 10/03/21 Rx rosuvastatin 20 mg tablet 20 mg PO BEDTIME #90 tab 10/12/21 11/03/21 Rx doxycycline hyclate 100 mg capsule 100 mg PO BID #6 cap 10/31/21 11/03/21 Rx Allergies Allergy/AdvReac Type Severity Reaction Status Date / Time adhesive tape [ADHESIVE TAPE] AdvReac Mild PATIENT Verified 09/10/21 17:57 STATES IT PEELS HIS SKIN OFF lisinopril [LISINOPRIL] AdvReac Mild COUGH Verified 09/10/21 17:57 prochlorperazine AdvReac Unknown Verified 09/10/21 17:57 [PROCHLORPERAZINE] shellfish derived AdvReac Unknown Verified 09/10/21 17:57 [SHELLFISH DERIVED] Review of Systems Review of Systems Narrative: The patient denies systemic chills or fever. Exam Vital Signs (past 8 hours): - 11/03/21 05:38 11/03/21 07:34 Temperature 100.3 F H 98.3 F Oxygen Delivery Method Room Air Oxygen Flow Rate 0 Narrative Exam Narrative: Right upper extremity examination shows no evidence of infection around the prior I and D of his antecubital fossa. The dorsum of the right hand is moderately swollen especially overlying the 2nd metacarpal. There is no discrete fluid collection palpable, and no pointing abscess. There is mild erythema surrounding this with no proximal tracking. Palmar side of the hand is soft, nonswollen and he has a good range of motion in flexion extension of the fingers. Light touch is intact in all the digits. He is exquisitely tender overlying the area of swelling around the 2nd metacarpal but has no tenderness whatsoever around the base of the 4th metacarpal at the site of a minor radiographic abnormality. Objective Labs Result Diagrams: 11/03/21 04:55 11/03/21 04:55 Labs: Laboratory Results - last 24 hr 11/02/21 11/02/21 11/02/21 22:20 22:20 22:20 WBC 8.3 RBC 4.40 L Hgb 12.4 L Hct 36.7 L MCV 83.4 MCH 28.2 MCHC 33.8 RDW 13.3 Plt Count 184 Neut % (Auto) 70.4 Lymph % (Auto) 19.0 L [place] % (Auto) 8.8 Eos % (Auto) 1.1 L Baso % (Auto) 0.7 Neut # (Auto) 5800 Lymph # (Auto) 1600 [place] # (Auto) 700 Eos # (Auto) 100 Baso # (Auto) 100 PT 16.3 H INR 1.4 H APTT Sodium 131 L Potassium 4.4 Chloride 99 Carbon Dioxide 28 BUN 21 H Creatinine 0.87 Estimated GFR > 60.0 BUN/Creatinine Ratio 24.1 H Glucose 410 H Hemoglobin A1c Lactate Calcium 9.3 Total Bilirubin 0.9 AST 20 ALT 13 Alkaline Phosphatase 102 Total Creatine Kinase 29 L CK-MB (CK-2) TNP CK-MB (CK-2) Rel Index TNP Troponin I < 0.012 Total Protein 6.9 Albumin 3.8 Globulin 3.1 Albumin/Globulin Ratio 1.2 Procalcitonin 0.07 U Opiates 300ng/mL cut Ur Oxycodone Screen Urine Methadone Screen Ur Barbiturates Screen U Tricyclic Antidepress Ur Phencyclidine Scrn Ur Amphetamines Screen U Methamphetamines Scrn Ur MDMA Scrn (Ecstasy) U Benzodiazepines Scrn Urine Cocaine Screen U Marijuana (THC) Screen SARS-CoV-2 (PCR) 11/02/21 11/02/21 11/02/21 22:20 22:20 23:23 WBC RBC Hgb Hct MCV MCH MCHC RDW Plt Count Neut % (Auto) Lymph % (Auto) [place] % (Auto) Eos % (Auto) Baso % (Auto) Neut # (Auto) Lymph # (Auto) [place] # (Auto) Eos # (Auto) Baso # (Auto) PT INR APTT 36 Sodium Potassium Chloride Carbon Dioxide BUN Creatinine Estimated GFR BUN/Creatinine Ratio Glucose Hemoglobin A1c Lactate 1.1 Calcium Total Bilirubin AST ALT Alkaline Phosphatase Total Creatine Kinase CK-MB (CK-2) CK-MB (CK-2) Rel Index Troponin I Total Protein Albumin Globulin Albumin/Globulin Ratio Procalcitonin U Opiates 300ng/mL cut Ur Oxycodone Screen Urine Methadone Screen Ur Barbiturates Screen U Tricyclic Antidepress Ur Phencyclidine Scrn Ur Amphetamines Screen U Methamphetamines Scrn Ur MDMA Scrn (Ecstasy) U Benzodiazepines Scrn Urine Cocaine Screen U Marijuana (THC) Screen SARS-CoV-2 (PCR) Negative 11/03/21 11/03/21 11/03/21 04:35 04:55 04:55 WBC 7.2 RBC 3.87 L Hgb 10.9 L Hct 32.1 L MCV 83.1 MCH 28.1 MCHC 33.8 RDW 13.0 Plt Count 176 Neut % (Auto) 64.5 Lymph % (Auto) 24.1 L [place] % (Auto) 9.6 Eos % (Auto) 1.2 L Baso % (Auto) 0.6 Neut # (Auto) 4600 Lymph # (Auto) 1700 [place] # (Auto) 700 Eos # (Auto) 100 Baso # (Auto) 0 PT INR APTT Sodium 134 L Potassium 3.3 L Chloride 107 Carbon Dioxide 24 BUN 15 Creatinine 0.63 L Estimated GFR > 60.0 BUN/Creatinine Ratio 23.8 H Glucose 211 H D Hemoglobin A1c Lactate Calcium 7.5 L Total Bilirubin AST ALT Alkaline Phosphatase Total Creatine Kinase CK-MB (CK-2) CK-MB (CK-2) Rel Index Troponin I Total Protein Albumin Globulin Albumin/Globulin Ratio Procalcitonin U Opiates 300ng/mL cut Negative Ur Oxycodone Screen Positive H Urine Methadone Screen Negative Ur Barbiturates Screen Negative U Tricyclic Antidepress Negative Ur Phencyclidine Scrn Negative Ur Amphetamines Screen Negative U Methamphetamines Scrn Negative Ur MDMA Scrn (Ecstasy) Negative U Benzodiazepines Scrn Negative Urine Cocaine Screen Negative U Marijuana (THC) Screen Negative SARS-CoV-2 (PCR) 11/03/21 04:55 WBC RBC Hgb Hct MCV MCH MCHC RDW Plt Count Neut % (Auto) Lymph % (Auto) [place] % (Auto) Eos % (Auto) Baso % (Auto) Neut # (Auto) Lymph # (Auto) [place] # (Auto) Eos # (Auto) Baso # (Auto) PT INR APTT Sodium Potassium Chloride Carbon Dioxide BUN Creatinine Estimated GFR BUN/Creatinine Ratio Glucose Hemoglobin A1c 8.2 H Lactate Calcium Total Bilirubin AST ALT Alkaline Phosphatase Total Creatine Kinase CK-MB (CK-2) CK-MB (CK-2) Rel Index Troponin I Total Protein Albumin Globulin Albumin/Globulin Ratio Procalcitonin U Opiates 300ng/mL cut Ur Oxycodone Screen Urine Methadone Screen Ur Barbiturates Screen U Tricyclic Antidepress Ur Phencyclidine Scrn Ur Amphetamines Screen U Methamphetamines Scrn Ur MDMA Scrn (Ecstasy) U Benzodiazepines Scrn Urine Cocaine Screen U Marijuana (THC) Screen SARS-CoV-2 (PCR) Radiographs of the right hand taken October 31, 2021 reviewed and independently interpreted. There is no obvious signs of musculoskeletal infection other than soft tissue swelling. There is no subcutaneous gas, no signs of periosteal reaction. There is an area of irregularity at the base of the ring finger metacarpal consistent with a fracture of indeterminate age. This is not the area of tenderness on examination. FORMERLY [facility], 1928–1983 Medical History Atrial fibrillation (Unknown) Carotid artery disease (Unknown) Coronary artery disease (Unknown) Diabetes (Unknown) Diabetes, type 1.5, uncontrolled, managed as type 2 Erectile dysfunction (Unknown) GERD (gastroesophageal reflux disease) (Unknown) Hepatitis C (Unknown) Hx of drug abuse Hyperlipemia (Unknown) Hypertension (Unknown) Hypothyroidism (Unknown) Measles (Unknown) Myocardial infarct (10/17/06) Obstructive sleep apnea (Unknown) Peripheral vascular disease (Unknown) Sacral back pain Surgical History History of open reduction and internal fixation (ORIF) procedure (09/2010) History of penile implant Hx of cataract surgery (~2004) Hx of coronary artery bypass surgery (10/2006) S/P bilateral below knee amputation (Unknown) Family History Father Age: 86 Heart disease ETOH abuse Mother Age: 94 Heart disease Alzheimer's dementia without behavioral disturbance, Alzheimer's disease of unspecified onset Social History household members: spouse Tobacco & Substance Use Smoking Status: Never smoker alcohol intake: never substance use type: does not use Assessment & Plan Assessment & Plan narrative: The patient appears to have a cellulitis of the dorsum of his hand. He may have an old base of 4th metacarpal fracture but this does not appear to be an acute issue. I do not see signs of a discrete abscess on examination. I would suggest continued treatment with IV antibiotics and elevation of the extremity. I will make him NPO after midnight tonight and re-examine him tomorrow. If an abscess becomes more obvious he will be taken to the operating room tomorrow for drainage. The patient understands the plan. Time Spent With Patient Time with patient: less than 30 minutes Critical Care time: I spent a total of [] minutes of critical care time on this patient's care today; this time is exclusive of procedural time.
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
--- NOTE | 2021-11-03 15:30 | P.PN_ITS ---
Subjective Subjective Date Patient Seen: 11/03/21 Interval history: BRIEF HPI PATIENT ADMITTED WITH CELLULITIS TO THE RIGHT HAND. TO DORSAL PART OF THE RIGHT HAND IS PAINFUL TO TOUCH COULD NOT IS LIKELY ELABORATE THE CAUSE. DENIED INJURY OR INSECT BITE TODAY CONTINUE TO HAVE SOME PAIN TO THE RIGHT HAND BUT IMPROVED DENIES ANY FEVER OR CHILLS NO NAUSEA/ VOMITING NO DIARRHEA REPORTED NO CHEST PAIN. NO SHORTNESS OF BREATH Exam Vital Signs (past 8 hours): - 11/03/21 07:34 11/03/21 08:00 11/03/21 09:50 Temperature 98.3 F 98.0 F Pulse Rate 109 H Respiratory Rate 18 Blood Pressure 141/82 H Pulse Oximetry 97 97 11/03/21 12:55 Temperature 98.3 F Pulse Rate 87 Respiratory Rate 18 Blood Pressure 163/53 H Pulse Oximetry 98 Oxygen Delivery Method Room Air Oxygen Flow Rate 0 Narrative Exam Narrative: NO ACUTE DISTRESS. PATIENT IS ALERT ORIENTED X3. VITAL SIGNS STABLE HEAD ATRAUMATIC NORMOCEPHALIC NECK : SUPPLE WITHOUT ADENOPATHY NO CAROTID BRUITS EYE: EOMI, PERRLA, NORMAL CONJUNCTIVA; NO JAUNDICE CHEST: REGULAR RATE. NO RUBS. PMI IS NON DISPLACED. NO MURMURS; NORMAL S1- S2 PULMONARY: DECREASED BS OVER THE BASES. MILD BIBASILAR CRACKLES NOTED; NO INCREASED DULLNESS TO PERCUSSION ABDOMEN: SOFT. NONTENDER. NONDISTENDED. BOWEL SOUNDS ARE PRESENT IN ALL 4 QUADRANTS. NO MASS. EXTREMITIES: EDEMA NOTED TO THE DORSUM OF RIGHT HAND. TENDER TO TOUCH. SENSATION INTACTCYANOSIS CLUBBING NOTED. NEURO: CRANIAL NERVES 2-12 GROSSLY INTACT. NO FOCAL NEUROLOGICAL DEFICIT NOTED. MSK: NORMAL RANGE OF MOTION FOR AGE. NO JOINT EFFUSION. SKIN: REDNESS TO RIGHT HAND. TORSO AREA. NO OPEN LESION. NO BITE RICHARDSON OR OTHER SIGNS OF INJURIES : NORMAL EXTERNAL GENITALIA. PSYCH : APPROPRIATE MOOD AND AFFECT. ALERT AWAKE ORIENTED X3 Objective Labs Result Diagrams: 11/03/21 04:55 11/03/21 04:55 Labs: Laboratory Results - last 24 hr 11/02/21 11/02/21 11/02/21 22:20 22:20 22:20 WBC 8.3 RBC 4.40 L Hgb 12.4 L Hct 36.7 L MCV 83.4 MCH 28.2 MCHC 33.8 RDW 13.3 Plt Count 184 Neut % (Auto) 70.4 Lymph % (Auto) 19.0 L Robertson % (Auto) 8.8 Eos % (Auto) 1.1 L Baso % (Auto) 0.7 Neut # (Auto) 5800 Lymph # (Auto) 1600 Robertson # (Auto) 700 Eos # (Auto) 100 Baso # (Auto) 100 PT 16.3 H INR 1.4 H APTT Sodium 131 L Potassium 4.4 Chloride 99 Carbon Dioxide 28 BUN 21 H Creatinine 0.87 Estimated GFR > 60.0 BUN/Creatinine Ratio 24.1 H Glucose 410 H Hemoglobin A1c Lactate Calcium 9.3 Total Bilirubin 0.9 AST 20 ALT 13 Alkaline Phosphatase 102 Total Creatine Kinase 29 L CK-MB (CK-2) TNP CK-MB (CK-2) Rel Index TNP Troponin I < 0.012 Total Protein 6.9 Albumin 3.8 Globulin 3.1 Albumin/Globulin Ratio 1.2 Procalcitonin 0.07 U Opiates 300ng/mL cut Ur Oxycodone Screen Urine Methadone Screen Ur Barbiturates Screen U Tricyclic Antidepress Ur Phencyclidine Scrn Ur Amphetamines Screen U Methamphetamines Scrn Ur MDMA Scrn (Ecstasy) U Benzodiazepines Scrn Urine Cocaine Screen U Marijuana (THC) Screen SARS-CoV-2 (PCR) 11/02/21 11/02/21 11/02/21 22:20 22:20 23:23 WBC RBC Hgb Hct MCV MCH MCHC RDW Plt Count Neut % (Auto) Lymph % (Auto) Robertson % (Auto) Eos % (Auto) Baso % (Auto) Neut # (Auto) Lymph # (Auto) Robertson # (Auto) Eos # (Auto) Baso # (Auto) PT INR APTT 36 Sodium Potassium Chloride Carbon Dioxide BUN Creatinine Estimated GFR BUN/Creatinine Ratio Glucose Hemoglobin A1c Lactate 1.1 Calcium Total Bilirubin AST ALT Alkaline Phosphatase Total Creatine Kinase CK-MB (CK-2) CK-MB (CK-2) Rel Index Troponin I Total Protein Albumin Globulin Albumin/Globulin Ratio Procalcitonin U Opiates 300ng/mL cut Ur Oxycodone Screen Urine Methadone Screen Ur Barbiturates Screen U Tricyclic Antidepress Ur Phencyclidine Scrn Ur Amphetamines Screen U Methamphetamines Scrn Ur MDMA Scrn (Ecstasy) U Benzodiazepines Scrn Urine Cocaine Screen U Marijuana (THC) Screen SARS-CoV-2 (PCR) Negative 11/03/21 11/03/21 11/03/21 04:35 04:55 04:55 WBC 7.2 RBC 3.87 L Hgb 10.9 L Hct 32.1 L MCV 83.1 MCH 28.1 MCHC 33.8 RDW 13.0 Plt Count 176 Neut % (Auto) 64.5 Lymph % (Auto) 24.1 L Robertson % (Auto) 9.6 Eos % (Auto) 1.2 L Baso % (Auto) 0.6 Neut # (Auto) 4600 Lymph # (Auto) 1700 Robertson # (Auto) 700 Eos # (Auto) 100 Baso # (Auto) 0 PT INR APTT Sodium 134 L Potassium 3.3 L Chloride 107 Carbon Dioxide 24 BUN 15 Creatinine 0.63 L Estimated GFR > 60.0 BUN/Creatinine Ratio 23.8 H Glucose 211 H D Hemoglobin A1c Lactate Calcium 7.5 L Total Bilirubin AST ALT Alkaline Phosphatase Total Creatine Kinase CK-MB (CK-2) CK-MB (CK-2) Rel Index Troponin I Total Protein Albumin Globulin Albumin/Globulin Ratio Procalcitonin U Opiates 300ng/mL cut Negative Ur Oxycodone Screen Positive H Urine Methadone Screen Negative Ur Barbiturates Screen Negative U Tricyclic Antidepress Negative Ur Phencyclidine Scrn Negative Ur Amphetamines Screen Negative U Methamphetamines Scrn Negative Ur MDMA Scrn (Ecstasy) Negative U Benzodiazepines Scrn Negative Urine Cocaine Screen Negative U Marijuana (THC) Screen Negative SARS-CoV-2 (PCR) 11/03/21 04:55 WBC RBC Hgb Hct MCV MCH MCHC RDW Plt Count Neut % (Auto) Lymph % (Auto) Robertson % (Auto) Eos % (Auto) Baso % (Auto) Neut # (Auto) Lymph # (Auto) Robertson # (Auto) Eos # (Auto) Baso # (Auto) PT INR APTT Sodium Potassium Chloride Carbon Dioxide BUN Creatinine Estimated GFR BUN/Creatinine Ratio Glucose Hemoglobin A1c 8.2 H Lactate Calcium Total Bilirubin AST ALT Alkaline Phosphatase Total Creatine Kinase CK-MB (CK-2) CK-MB (CK-2) Rel Index Troponin I Total Protein Albumin Globulin Albumin/Globulin Ratio Procalcitonin U Opiates 300ng/mL cut Ur Oxycodone Screen Urine Methadone Screen Ur Barbiturates Screen U Tricyclic Antidepress Ur Phencyclidine Scrn Ur Amphetamines Screen U Methamphetamines Scrn Ur MDMA Scrn (Ecstasy) U Benzodiazepines Scrn Urine Cocaine Screen U Marijuana (THC) Screen SARS-CoV-2 (PCR) [facility] Medical History Atrial fibrillation (Unknown) Carotid artery disease (Unknown) Coronary artery disease (Unknown) Diabetes (Unknown) Diabetes, type 1.5, uncontrolled, managed as type 2 Erectile dysfunction (Unknown) GERD (gastroesophageal reflux disease) (Unknown) Hepatitis C (Unknown) Hx of drug abuse Hyperlipemia (Unknown) Hypertension (Unknown) Hypothyroidism (Unknown) Measles (Unknown) Myocardial infarct (10/17/06) Obstructive sleep apnea (Unknown) Peripheral vascular disease (Unknown) Sacral back pain Surgical History History of open reduction and internal fixation (ORIF) procedure (09/2010) History of penile implant Hx of cataract surgery (~2004) Hx of coronary artery bypass surgery (10/2006) S/P bilateral below knee amputation (Unknown) Family History Father Age: 86 Heart disease ETOH abuse Mother Age: 94 Heart disease Alzheimer's dementia without behavioral disturbance, Alzheimer's disease of unspecified onset Social History household members: spouse Smoking Status: Never smoker alcohol intake: never substance use type: does not use Assessment & Plan Assessment & Plan narrative: PROBLEM LIST CELLULITIS OF THE RIGHT HAND. CAUSE IS UNCLEAR HYPERTENSION. ESSENTIAL LIKELY ANEMIA. SUSPECT CHRONIC DISEASE ASSISTANCE SURGEON RECOMMENDED MORBID OBESITY. LIFESTYLE CHANGES RECOMMENDED MILD COAGULOPATHY OF UNCLEAR CAUSE HYPOPHOSPHATEMIA DIABETES TYPE 2. INSULIN DEPENDENT PLAN CONTINUE VANCOMYCIN AND ROCEPHIN FOR NOW CONSIDER ADDING CLINDAMYCIN TO COVER FOR STREPTOCOCCUS TOXIN MONITOR LABS CLOSELY MONITOR VITAL SIGNS CLOSELY WELL DOES NOT APPEAR LIKELY THAT PATIENT WILL NEED ANY SURGICAL PROCEDURE DONE AT THIS TIME HOWEVER, WILL CONSIDER REPEATING IMAGING OF THE HEAD IS INDICATED CLINICALLY REFERRED TO SURGICAL TEAM IF INDICATED CLINICALLY WELL IF AREA SHOWING SIGN OF WORSENING, MAY NEED TO BE TRANSFERRED TO TERTIARY FACILITY FOR HIGHER LEVEL OF CARE STRICT BLOOD SUGAR AND BLOOD PRESSURE CONTROL ADDITIONAL MANAGEMENT PER CLINICAL COURSE DISCHARGE POSSIBLE NEXT 24-48 HOURS IF CLINICALLY STABLE Time Spent With Patient Critical Care time: I spent a total of [] minutes of critical care time on this patient's care today; this time is exclusive of procedural time. Quality VTE Deep Vein Thrombosis/Pulmonary Embolism Present on Admission: No
[2021-11-03] MEDS: methocarbamoL 500 MG TABLET PO ×2 (16:11→21:09)
[2021-11-03] MEDS: DEXAMETHASONE 10 MG/ML VIAL 8 MG IV (16:11)
[2021-11-03] MEDS: DOCUSATE 100 MG CAPSULE PO (17:05)
[2021-11-03] MEDS: TAMSULOSIN 0.4 MG CAPSULE PO (21:06)
[2021-11-03] MEDS: GABAPENTIN 300 MG CAPSULE PO (21:06)
[2021-11-03] MEDS: ATORVASTATIN 20 MG TABLET 40 MG PO (21:06)
[2021-11-04] VITALS: BP 154/71; PULSE 87; RESP 18; TEMP 36.9; O2SAT 96
[2021-11-04] MEDS: OXYCODONE IR 5 MG TABLET PO ×3 (01:35→13:41)
[2021-11-04] MEDS: VANCOMYCIN 1,500 MG/300 ML PIGGYBACK 200 MG IV (01:36)
[2021-11-04 06:49] LABS: HEMOLYSIS < 15 (0-50)
[2021-11-04] MEDS: LEVOTHYROXINE 75 MCG TABLET PO (06:56)
[2021-11-04] MEDS: LEVOTHYROXINE 100 MCG TABLET PO (06:56)
[2021-11-04 08:00] VITALS: BP 148/87; PULSE 71; RESP 20; TEMP 36.6; O2SAT 95
--- NOTE | 2021-11-04 08:19 | P.PN_ITS ---
Subjective Subjective Date Patient Seen: 11/04/21 Time Patient Seen: 08:19 Interval history: The patient reports he thinks his hand is getting better both in terms of pain and redness. He does note it seems to have swelled a little bit more overnight and that it was doing better last night than this morning. Exam Vital Signs (past 8 hours): Oxygen Delivery Method Room Air Oxygen Flow Rate 0 Narrative Exam Narrative: Right hand swelling is decreased from the a visit yesterday. Redness is a little less severe. On palpation it is less tender and there is no palpable fluid collection that would require drainage. Objective Labs Result Diagrams: 11/03/21 04:55 11/04/21 06:30 Labs: Laboratory Results - last 24 hr 11/04/21 06:30 Potassium 5.0 D [facility] Medical History Atrial fibrillation (Unknown) Carotid artery disease (Unknown) Coronary artery disease (Unknown) Diabetes (Unknown) Diabetes, type 1.5, uncontrolled, managed as type 2 Erectile dysfunction (Unknown) GERD (gastroesophageal reflux disease) (Unknown) Hepatitis C (Unknown) Hx of drug abuse Hyperlipemia (Unknown) Hypertension (Unknown) Hypothyroidism (Unknown) Measles (Unknown) Myocardial infarct (10/17/06) Obstructive sleep apnea (Unknown) Peripheral vascular disease (Unknown) Sacral back pain Surgical History History of open reduction and internal fixation (ORIF) procedure (09/2010) History of penile implant Hx of cataract surgery (~2004) Hx of coronary artery bypass surgery (10/2006) S/P bilateral below knee amputation (Unknown) Family History Father Age: 86 Heart disease ETOH abuse Mother Age: 94 Heart disease Alzheimer's dementia without behavioral disturbance, Alzheimer's disease of unspecified onset Social History household members: spouse Smoking Status: Never smoker alcohol intake: never substance use type: does not use Assessment & Plan Assessment & Plan narrative: Patient has a cellulitis of the dorsum of his right hand. There does not appear to be any palmar involvement. This appears to be slowly responding to IV antibiotics. It does not appear that drainage of an abscess is necessary today. I would recommend continue IV antibiotics. I will discontinue the NPO order this morning but will reinstituted at midnight tonight in the event that an abscess appears for tomorrow. If it does we will drain that tomorrow. If the hand continues to improve through tomorrow then discharge home on oral antibio tics would appear to be appropriate. Time Spent With Patient Time with patient: less than 30 minutes Critical Care time: I spent a total of [] minutes of critical care time on this patient's care today; this time is exclusive of procedural time. Quality VTE Deep Vein Thrombosis/Pulmonary Embolism Present on Admission: No
[2021-11-04] MEDS: INSULIN LISPRO 100 UNIT/ML 3ML VIAL SUBCUT ×3 (09:37→21:08)
[2021-11-04 09:40] VITALS: O2SAT 95
[2021-11-04] MEDS: INSULIN NPH/REG 70-30 100 UNIT/ML 3ML VIAL 30 UNIT SUBCUT (09:42)
[2021-11-04 09:53] VITALS: BP 148/87
[2021-11-04] MEDS: LOSARTAN 25 MG TABLET PO (09:53)
[2021-11-04] MEDS: LACTOBACILLUS ACIDOPHILUS TABLET 1 EACH PO (09:53)
[2021-11-04] MEDS: ASPIRIN EC 81 MG TABLET 162 MG PO (09:53)
[2021-11-04] MEDS: PANTOPRAZOLE DR 40 MG TABLET PO (09:53)
[2021-11-04] MEDS: methocarbamoL 500 MG TABLET PO ×3 (09:53→21:14)
[2021-11-04] MEDS: GABAPENTIN 300 MG CAPSULE PO ×2 (09:53→21:07)
[2021-11-04] MEDS: APIXABAN 5 MG TABLET PO ×2 (09:54→21:07)
[2021-11-04] MEDS: METOPROLOL IR 50 MG TABLET 100 MG PO ×2 (09:54→21:07)
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
[2021-11-04] MEDS: INSULIN LISPRO 100 UNIT/ML 3ML VIAL 10 UNIT SUBCUT (12:15)
--- NOTE | 2021-11-04 12:29 | P.PN_ITS ---
Subjective Subjective Date Patient Seen: 11/04/21 Interval history: BRIEF HPI PATIENT ADMITTED WITH CELLULITIS TO THE DORSAL RIGHT HAND.? COULD NOT CLEARLY ELABORATE THE CAUSE. DENIED INJURY OR INSECT BITE TODAY PATIENT FEELS LIKE THAT THE AREA IS GETTING BETTER THE PAIN SENSATION IN THE AREA HAS SIGNIFICANTLY IMPROVED DENIES ANY FEVER OR CHILLS OVERNIGHT NO DIARRHEA REPORTED FROM ANTIBIOTIC THERAPY EATING WELL NO SIGNIFICANT ISSUES REPORTED BY NURSING OVERNIGHT Exam Vital Signs (past 8 hours): - 11/04/21 08:00 11/04/21 09:40 11/04/21 09:53 Temperature 97.9 F Pulse Rate 71 Respiratory Rate 20 Blood Pressure 148/87 H 148/87 H Pulse Oximetry 95 95 Oxygen Delivery Method Room Air Oxygen Flow Rate 0 Narrative Exam Narrative: NO ACUTE DISTRESS.? PATIENT IS ALERT ORIENTED X3. VITAL SIGNS STABLE HEAD ATRAUMATIC NORMOCEPHALIC NECK : SUPPLE WITHOUT ADENOPATHY NO CAROTID BRUITS EYE:? EOMI, PERRLA, NORMAL CONJUNCTIVA; NO JAUNDICE CHEST:? REGULAR RATE.? ? NO RUBS.? PMI IS NON DISPLACED.? NO MURMURS; NORMAL S1- S2 PULMONARY:? DECREASED BS OVER THE BASES.? MILD BIBASILAR CRACKLES NOTED; NO INCREASED DULLNESS TO PERCUSSION ABDOMEN:? SOFT.? NONTENDER.? NONDISTENDED.? BOWEL SOUNDS ARE PRESENT IN ALL 4 QUADRANTS.? NO MASS. EXTREMITIES:? SLIGHT EDEMA NOTED TO THE DORSUM OF RIGHT HAND.? TENDER TO TOUCH BUT LESS THAN OVER LAST 24 HRS .? SENSATION INTACT. NO CYANOSIS OR CLUBBING NOTED. NEURO:? CRANIAL NERVES 2-12 GROSSLY INTACT. NO FOCAL NEUROLOGICAL DEFICIT NOTED. MSK:? NORMAL RANGE OF MOTION FOR AGE.? NO JOINT EFFUSION. SKIN:? REDNESS TO RIGHT HAND.?DORSAL AREA.? NO OPEN LESION.? NO BITE RICHARDSON OR OTHER? SIGNS OF INJURIES :? NORMAL EXTERNAL GENITALIA. PSYCH :? APPROPRIATE MOOD AND AFFECT.? ALERT AWAKE ORIENTED X3 Objective Labs Result Diagrams: 11/03/21 04:55 11/04/21 06:30 Labs: Laboratory Results - last 24 hr 11/04/21 06:30 Potassium 5.0 D [facility] Medical History Atrial fibrillation (Unknown) Carotid artery disease (Unknown) Coronary artery disease (Unknown) Diabetes (Unknown) Diabetes, type 1.5, uncontrolled, managed as type 2 Erectile dysfunction (Unknown) GERD (gastroesophageal reflux disease) (Unknown) Hepatitis C (Unknown) Hx of drug abuse Hyperlipemia (Unknown) Hypertension (Unknown) Hypothyroidism (Unknown) Measles (Unknown) Myocardial infarct (10/17/06) Obstructive sleep apnea (Unknown) Peripheral vascular disease (Unknown) Sacral back pain Surgical History History of open reduction and internal fixation (ORIF) procedure (09/2010) History of penile implant Hx of cataract surgery (~2004) Hx of coronary artery bypass surgery (10/2006) S/P bilateral below knee amputation (Unknown) Family History Father Age: 86 Heart disease ETOH abuse Mother Age: 94 Heart disease Alzheimer's dementia without behavioral disturbance, Alzheimer's disease of unspecified onset Social History household members: spouse Smoking Status: Never smoker alcohol intake: never substance use type: does not use Assessment & Plan Assessment & Plan narrative: PROBLEM LIST CELLULITIS OF THE RIGHT HAND.? CAUSE IS UNCLEAR; IMPROVING ON ANTIBIOTICS HYPERTENSION. ? ESSENTIAL LIKELY. BLOOD PRESSURE FAIRLY CONTROLLED ANEMIA.? SUSPECT CHRONIC DISEASE ASSISTANCE SURGEON RECOMMENDED MORBID OBESITY.? LIFESTYLE CHANGES RECOMMENDED MILD COAGULOPATHY OF UNCLEAR CAUSE HYPOPHOSPHATEMIA DIABETES TYPE 2.? INSULIN DEPENDENT. UNCONTROLLED DURING THIS HOSPITAL STAY PLAN 11/04 WILL CONTINUE CURRENT ANTIBIOTICS FOR NOW PATIENT HAS BEEN STARTED ON ROCEPHIN AND CLINDAMYCIN DISCONTINUE VANCOMYCIN SURGICAL TEAM INPUT NOTED AND GREATLY APPRECIATED RECOMMENDATIONS TO CONTINUE ANTIBIOTICS FOR ANOTHER 24 HOURS NOTED WILL SWITCH TO P.O. ANTIBIOTICS IN THE MORNING IF IMPROVING CONTINUE TO SHOW IMPROVEMENT AND NO SURGICAL INTERVENTION PLANNED CONTINUE TO MONITOR CLOSELY FOR ANY SIGN OF DEVELOPING DIARRHEA WHICH COULD INDICATE INFECTIOUS COLITIS WILL ALSO INCREASE HIS NPH DUE TO UNCONTROLLED BLOOD SUGAR REPORTED CONTINUE INSULIN SLIDING SCALE PREVIOUSLY ORDERED ADDITIONAL MANAGEMENT PER CLINICAL COURSE POSSIBLE DISCHARGE IN NEXT 24 HOURS IF CLEARED BY ORTHOPEDIC SURGERY 11/03 CONTINUE VANCOMYCIN AND ROCEPHIN FOR NOW CONSIDER ADDING CLINDAMYCIN TO COVER FOR STREPTOCOCCUS TOXIN MONITOR LABS CLOSELY MONITOR VITAL SIGNS CLOSELY WELL DOES NOT APPEAR LIKELY THAT PATIENT WILL NEED ANY SURGICAL PROCEDURE DONE AT THIS TIME HOWEVER, WILL CONSIDER REPEATING IMAGING OF THE HEAD IS INDICATED CLINICALLY REFERRED TO SURGICAL TEAM IF INDICATED CLINICALLY WELL IF AREA SHOWING SIGN OF WORSENING, MAY NEED TO BE TRANSFERRED TO TERTIARY FACILITY FOR HIGHER LEVEL OF CARE STRICT BLOOD SUGAR AND BLOOD PRESSURE CONTROL ADDITIONAL MANAGEMENT PER CLINICAL COURSE DISCHARGE POSSIBLE NEXT 24-48 HOURS IF CLINICALLY STABLE Time Spent With Patient Critical Care time: I spent a total of [] minutes of critical care time on this patient's care today; this time is exclusive of procedural time. Quality VTE Deep Vein Thrombosis/Pulmonary Embolism Present on Admission: No
[2021-11-04] MEDS: CLINDAMYCIN 150 MG CAPSULE 450 MG PO ×2 (13:40→21:13)
[2021-11-04] MEDS: OXYCODONE IR 5 MG TABLET 10 MG PO (16:14)
[2021-11-04 16:15] VITALS: BP 159/59; PULSE 78; RESP 18; TEMP 36.8; O2SAT 97
[2021-11-04] MEDS: INSULIN NPH/REG 70-30 100 UNIT/ML 3ML VIAL 40 UNIT SUBCUT (16:33)
[2021-11-04] MEDS: ATORVASTATIN 20 MG TABLET 40 MG PO (21:06)
[2021-11-04] MEDS: TAMSULOSIN 0.4 MG CAPSULE PO (21:07)
[2021-11-05] VITALS: BP 135/35; PULSE 72; RESP 18; TEMP 36.6; O2SAT 95
[2021-11-05] MEDS: cefTRIAXone 1,000 MG in SODIUM CHLORIDE 0.9% 100 ML 200 ML IV (00:07)
--- NOTE | 2021-11-05 01:26 | PC.NURSE ---
Addendum entered by Elvi Kelley R.N. 11/05/21 03:59: Midnight blood pressure noted to be abnormal 135/35. Upon recheck, VASCULAR ULTRASOUND TECHNOLOGIST found pt's BP to be 90's/30's (MAP 55). Heart rate normal, pt asymptomatic, only complaint is of pain in the hand. Dr. Mcdonald informed, 1 liter bolus ordered. After bolus administration, pt woke suddenly and in a great deal of pain. Right hand more swollen and taut, erythematous, and tender. Blood pressure now 150's/80's. Ice applied, pain meds administered. Original Note: SHIFT: Report received, care assumed 1914. A&Ox4. Pt. resting comfortably in bed. C/o generalized chronic pain, as well as localized acute pain to the right hand, but reports the pain is tolerable; declines pain meds at this time. Using ice packs on his hand. Pt has bilateral lower extremity amputations; prosthetics at bedside and accessible to patient. He is able to reposition in bed independently. Call light in reach.
[2021-11-05 02:00] VITALS: BP 96/35
[2021-11-05] MEDS: SODIUM CHLORIDE 0.9% 1,000 ML 1000 ML IV (02:40)
[2021-11-05 03:56] VITALS: BP 155/87; TEMP 36.6
[2021-11-05] MEDS: OXYCODONE IR 5 MG TABLET 10 MG PO ×3 (03:56→11:54)
[2021-11-05] MEDS: LEVOTHYROXINE 100 MCG TABLET PO (05:39)
[2021-11-05] MEDS: LEVOTHYROXINE 75 MCG TABLET PO (05:39)
[2021-11-05 06:44] LABS: Add Manual Diff / Slide Review NO; Basophils Absolute Auto 100 /uL (0-100); Basophils Percent Auto 0.5 % (0-2); Eosinophils Absolute Auto 300 /uL (0-450); Eosinophils Percent Auto 2.8 % (2-4); Hematocrit 36.8 % (41-53); Hemoglobin 12.4 g/dL (13.5-17.5); Lymphocytes Absolute Auto 2300 /uL (1100-4500); Lymphocytes Percent Auto 20.9 % (25-40); Mean Corpuscular HGB Conc 33.6 % (30-36); Mean Corpuscular Hemoglobin 27.5 PG (26-34); Mean Corpuscular Volume 82.1 fL (80-100); Monocytes Absolute Auto 700 /uL (0-900); Monocytes Percent Auto 6.4 % (3-14); Neutrophils Absolute Auto 7600 /uL (1500-7000); Neutrophils Percent Auto 69.4 % (50-75); Platelet Count 243 X10^3/uL (150-400); Red Blood Cell Count 4.49 X10^6/uL (4.5-5.9); Red Cell Distribution Width 13.6 % (11.6-14.8)
[2021-11-05 06:51] LABS: Alanine Aminotransferase 14 IU/L (<50); Albumin 3.5 g/dL (3.5-5.0); Albumin Globulin Ratio 1.1 (1.0-2.8); Alkaline Phosphatase 93 U/L (38-126); Aspartate Aminotransferase 23 IU/L (17-59); BUN Creatinine Ratio 28.4 (6-22); Bilirubin Total 0.6 mg/dL (0.2-1.3); Blood Urea Nitrogen 27 mg/dL (9-20); Calcium 9.3 mg/dL (8.4-10.2); Carbon Dioxide 27 mmol/L (22-32); Chloride 104 mmol/L (98-107); Estimated Glomerular Filt Rate > 60.0 mL/min (>60); Globulin 3.2 g/dL (1.7-4.1); Glucose 187 mg/dL (80-110); HEMOLYSIS 17 (0-50); Phosphorous 3.4 mg/dL (2.3-3.7); Potassium 4.5 mmol/L (3.4-5.1); Sodium 136 mmol/L (137-145); Total Protein 6.7 g/dL (6.3-8.2)
[2021-11-05 07:00] VITALS: O2SAT 95
--- NOTE | 2021-11-05 07:53 | PM.PN.1 ---
Subjective Subjective Date Patient Seen: 11/05/21 Time Patient Seen: 07:54 Interval history: The patient reports his hand was swollen last night but is considerably improved this morning. Exam Vital Signs (past 8 hours): - 11/05/21 00:00 11/05/21 02:00 11/05/21 03:56 Temperature 98 F 97.9 F Pulse Rate 72 Respiratory Rate 18 Blood Pressure 135/35 L 96/35 L 155/87 H Pulse Oximetry 95 Oxygen Delivery Method Room Air Oxygen Flow Rate 0 Narrative Exam Narrative: Right hand is examined. There is minimal dorsal swelling. Minimal erythema. No area of centralized induration to suggest an abscess. Objective Labs Result Diagrams: 11/05/21 05:40 11/05/21 05:40 Labs: Laboratory Results - last 24 hr 11/05/21 11/05/21 05:40 05:40 WBC 11.0 RBC 4.49 L Hgb 12.4 L Hct 36.8 L MCV 82.1 MCH 27.5 MCHC 33.6 RDW 13.6 Plt Count 243 Neut % (Auto) 69.4 Lymph % (Auto) 20.9 L [place] % (Auto) 6.4 Eos % (Auto) 2.8 Baso % (Auto) 0.5 Neut # (Auto) 7600 H Lymph # (Auto) 2300 [place] # (Auto) 700 Eos # (Auto) 300 Baso # (Auto) 100 Sodium 136 L Potassium 4.5 Chloride 104 Carbon Dioxide 27 BUN 27 H Creatinine 0.95 Estimated GFR > 60.0 BUN/Creatinine Ratio 28.4 H Glucose 187 H Calcium 9.3 Phosphorus 3.4 Total Bilirubin 0.6 AST 23 ALT 14 Alkaline Phosphatase 93 Total Protein 6.7 Albumin 3.5 Globulin 3.2 Albumin/Globulin Ratio 1.1 [facility] Medical History Atrial fibrillation (Unknown) Carotid artery disease (Unknown) Coronary artery disease (Unknown) Diabetes (Unknown) Diabetes, type 1.5, uncontrolled, managed as type 2 Erectile dysfunction (Unknown) GERD (gastroesophageal reflux disease) (Unknown) Hepatitis C (Unknown) Hx of drug abuse Hyperlipemia (Unknown) Hypertension (Unknown) Hypothyroidism (Unknown) Measles (Unknown) Myocardial infarct (10/17/06) Obstructive sleep apnea (Unknown) Peripheral vascular disease (Unknown) Sacral back pain Surgical History History of open reduction and internal fixation (ORIF) procedure (09/2010) History of penile implant Hx of cataract surgery (~2004) Hx of coronary artery bypass surgery (10/2006) S/P bilateral below knee amputation (Unknown) Family History Father Age: 86 Heart disease ETOH abuse Mother Age: 94 Heart disease Alzheimer's dementia without behavioral disturbance, Alzheimer's disease of unspecified onset Social History household members: spouse Smoking Status: Never smoker alcohol intake: never substance use type: does not use Assessment & Plan Assessment & Plan narrative: The patient has cellulitis of his hand that appears to be improving. Although the hand is mildly swollen dorsally there does not appear to be a discrete abscess requiring drainage. This should continue to respond to antibiotics and he should be able to transfer over to oral antibiotics shortly. It does not appear surgical intervention will be necessary so Orthopedics will sign off at this point. Please contact us if you have additional concerns. Time Spent With Patient Time with patient: less than 30 minutes Critical Care time: I spent a total of [] minutes of critical care time on this patient's care today; this time is exclusive of procedural time. Quality VTE Deep Vein Thrombosis/Pulmonary Embolism Present on Admission: No
[2021-11-05] MEDS: CLINDAMYCIN 150 MG CAPSULE 450 MG PO (08:46)
[2021-11-05] MEDS: INSULIN LISPRO 100 UNIT/ML 3ML VIAL SUBCUT ×2 (08:46→11:56)
[2021-11-05] MEDS: INSULIN NPH/REG 70-30 100 UNIT/ML 3ML VIAL 40 UNIT SUBCUT (08:46)
[2021-11-05] MEDS: LACTOBACILLUS ACIDOPHILUS TABLET 1 EACH PO (08:49)
[2021-11-05] MEDS: ASPIRIN EC 81 MG TABLET 162 MG PO (08:49)
[2021-11-05] MEDS: GABAPENTIN 300 MG CAPSULE PO (08:49)
[2021-11-05] MEDS: APIXABAN 5 MG TABLET PO (08:49)
[2021-11-05] MEDS: PANTOPRAZOLE DR 40 MG TABLET PO (08:50)
[2021-11-05 08:55] VITALS: BP 139/44; PULSE 64
[2021-11-05] MEDS: LOSARTAN 25 MG TABLET PO (08:55)
[2021-11-05] MEDS: METOPROLOL IR 50 MG TABLET 100 MG PO (08:56)
[2021-11-05 08:59] VITALS: BP 139/44; PULSE 62; RESP 18; TEMP 36.9; O2SAT 96
--- NOTE | 2021-11-05 11:19 | P.DS_ITS ---
History of Present Illness History of Present Illness Date Patient Seen: 11/05/21 Chief complaint: RT HAND SWELLING HURTS Narrative: History of Present Illness History of Present Illness Date Patient Seen:?11/02/21 Time Patient Seen:?23:30 Date of Onset of Symptoms:?10/31/21 Narrative: This is a 75 yo man with rate controlled A. Fib on apixaban, uncontrolled DM on insulin, CAD s/p CABG, and PAD s/p bilateral BKA presents with worsening dorsal right hand pain, swelling and erythema.? Patient was initially seen in the ED on 10/24/21 for abscess in the right antecubital fossa.? Patient underwent I+D and was placed on doxycycline.? He returned to the ED on 10/31 because of right hand pain and swelling.? There was no evidence of abscess on imaging so no I+D was performed at the time.? He was discharged with an extension of the doxycycline for an additional 3 days.? Unfortunately, the swelling of the hand and pain have become intolerable so patient returned to the ED today.? Patient reports he has been adherent to his antibiotic course.? The pain in the right antecubital fossa is resolved but the hand pain is much worse.? Anytime the hands gets bumped it causes extreme pain which radiates into the forearm.? Nothing really makes it better.? He tries to keep it elevated which helps reduce the swelling.? He is unable to make a fist due to swelling and pain.? He denies any recent IVDU. Denies fever, chills, headache, chest pain, shortness of breath, nausea, vomiting, diarrhea.? In the ED, the patient was afebrile.? He had an elevated blood pressure of 192/86 and was tachycardic at 105.? On exam, he had significant swelling across the dorsum of the right hand.? Pertinent labs include normal WBC count, mild anemia, sodium 131, BUN 21, glucose 410, procalcitonin 0.07.? He was treated with IVF and PICC line was ordered for vancomycin.? Blood cultures were obtained prior to starting antibiotics.? He is admitted for treatment of right hand cellu litis.? Discharge Providers Provider Date of admission: 11/02/21 23:20 Discharge Date: 11/05/21 Primary care physician: Pb Montero MD Consults: 11/02/21 23:21 Consult to Orthopedic Surgery Stat Comment: Consulting Provider: Soniya Arnold Reason for consultation: cellulitis right hand/forearm Has provider been notified: Yes Discharge provider: Chepe Mccormick DO Summary Hospital Course Discharge Diagnosis: CELLULITIS OF THE RIGHT HAND.? CAUSE IS UNCLEAR; IMPROVING ON ANTIBIOTICS HYPERTENSION. ? ESSENTIAL LIKELY.? BLOOD PRESSURE FAIRLY CONTROLLED ANEMIA.? SUSPECT CHRONIC DISEASE ASSISTANCE SURGEON RECOMMENDED MORBID OBESITY.? LIFESTYLE CHANGES RECOMMENDED MILD COAGULOPATHY OF UNCLEAR CAUSE HYPOPHOSPHATEMIA DIABETES TYPE 2.? INSULIN DEPENDENT.? Hospital Course: THIS IS A 75-YEAR-OLD MALE WITH A HISTORY OF ILLICIT DRUG ABUSE PRESENTS TO THE HOSPITAL WITH A RIGHT HAND CELLULITIS. PATIENT HAS BEEN TREATED WITH ANTIBIOTICS AND RESPONDED VERY WELL TO THE TREATMENT. ORTHOPEDIC SURGERY DID SEE THE PATIENT IN BED DID NOT FEEL PATIENT NEEDED ANY SURGICAL INTERVENTION IN ANY CASE, HE HAS BEEN CLEARED BY THE SURGICAL TEAM FOR DISCHARGE HE WILL BE DISCHARGED ON LEVAQUIN AND CLINDAMYCIN FOR 7 DAYS. HE ALSO WILL NEED TO KEEP HIS RIGHT HAND ELEVATED AT ALL TIMES WHILE SITTING OR LAYING DOWN ADDITIONALLY, HE COULD USE ICE PACK TO HELP WITH SWELLING. PATIENT WAS ALSO ADVISED TO WEAR COMPRESSION STOCKING IF NEEDED TO HELP WITH CIRCULATION. HE WILL NEED TO FOLLOW UP WITH ORTHOPEDIC SURGERY OUTPATIENT FOR ADDITIONAL MANAGEMENT AND CARE INDICATED CLINICALLY. HIS QUESTION AND CONCERNS WERE ADDRESSED TO HIS SATISFACTION PRIOR TO DISCHARGE. Status at Discharge Cognitive/behavioral status at discharge: oriented Functional status at discharge: independent ambulation Overall status at discharge: patient is progressing back to baseline Time Spent with Patient Time spent: Greater than 30 minutes Exam Vital Signs (past 8 hours): - 11/05/21 03:56 11/05/21 07:00 11/05/21 08:55 Temperature 97.9 F Pulse Rate 64 Respiratory Rate Blood Pressure 155/87 H 139/44 L Pulse Oximetry 95 11/05/21 08:59 Temperature 98.4 F Pulse Rate 62 Respiratory Rate 18 Blood Pressure 139/44 L Pulse Oximetry 96 Oxygen Delivery Method Room Air Oxygen Flow Rate 0 Narrative Exam Narrative: NO ACUTE DISTRESS.? PATIENT IS ALERT ORIENTED X3. VITAL SIGNS STABLE HEAD ATRAUMATIC NORMOCEPHALIC NECK : SUPPLE WITHOUT ADENOPATHY NO CAROTID BRUITS EYE:? EOMI, PERRLA, NORMAL CONJUNCTIVA; NO JAUNDICE CHEST:? REGULAR RATE.? ? NO RUBS.? PMI IS NON DISPLACED.? NO MURMURS; NORMAL S1- S2 PULMONARY:? DECREASED BS OVER THE BASES.? MILD BIBASILAR CRACKLES NOTED; NO INCREASED DULLNESS TO PERCUSSION ABDOMEN:? SOFT.? NONTENDER.? NONDISTENDED.? BOWEL SOUNDS ARE PRESENT IN ALL 4 QUADRANTS.? NO MASS. EXTREMITIES:? SLIGHT EDEMA NOTED TO THE DORSUM OF RIGHT HAND.? TENDER TO TOUCH BUT LESS THAN OVER LAST 24 HRS .? SENSATION INTACT. NO CYANOSIS OR CLUBBING NOTED. NEURO:? CRANIAL NERVES 2-12 GROSSLY INTACT. NO FOCAL NEUROLOGICAL DEFICIT NOTED. MSK:? NORMAL RANGE OF MOTION FOR AGE.? NO JOINT EFFUSION. SKIN:? REDNESS TO RIGHT HAND.?DORSAL? AREA.? NO OPEN LESION.? NO BITE RICH[place]DSON OR OTHER? SIGNS OF INJURIES :? NORMAL EXTERNAL GENITALIA. PSYCH :? APPROPRIATE MOOD AND AFFECT.? ALERT AWAKE ORIENTED X3 Objective Labs Result Diagrams: 11/05/21 05:40 11/05/21 05:40 Labs: Laboratory Results - last 24 hr 11/05/21 11/05/21 05:40 05:40 WBC 11.0 RBC 4.49 L Hgb 12.4 L Hct 36.8 L MCV 82.1 MCH 27.5 MCHC 33.6 RDW 13.6 Plt Count 243 Neut % (Auto) 69.4 Lymph % (Auto) 20.9 L [place] % (Auto) 6.4 Eos % (Auto) 2.8 Baso % (Auto) 0.5 Neut # (Auto) 7600 H Lymph # (Auto) 2300 [place] # (Auto) 700 Eos # (Auto) 300 Baso # (Auto) 100 Sodium 136 L Potassium 4.5 Chloride 104 Carbon Dioxide 27 BUN 27 H Creatinine 0.95 Estimated GFR > 60.0 BUN/Creatinine Ratio 28.4 H Glucose 187 H Calcium 9.3 Phosphorus 3.4 Total Bilirubin 0.6 AST 23 ALT 14 Alkaline Phosphatase 93 Total Protein 6.7 Albumin 3.5 Globulin 3.2 Albumin/Globulin Ratio 1.1 [facility] Medical History Atrial fibrillation (Unknown) Carotid artery disease (Unknown) Coronary artery disease (Unknown) Diabetes (Unknown) Diabetes, type 1.5, uncontrolled, managed as type 2 Erectile dysfunction (Unknown) GERD (gastroesophageal reflux disease) (Unknown) Hepatitis C (Unknown) Hx of drug abuse Hyperlipemia (Unknown) Hypertension (Unknown) Hypothyroidism (Unknown) Measles (Unknown) Myocardial infarct (10/17/06) Obstructive sleep apnea (Unknown) Peripheral vascular disease (Unknown) Sacral back pain Surgical History History of open reduction and internal fixation (ORIF) procedure (09/2010) History of penile implant Hx of cataract surgery (~2004) Hx of coronary artery bypass surgery (10/2006) S/P bilateral below knee amputation (Unknown) Family History Father Age: 86 Heart disease ETOH abuse Mother Age: 94 Heart disease Alzheimer's dementia without behavioral disturbance, Alzheimer's disease of unspecified onset Social History household members: spouse Smoking Status: Never smoker alcohol intake: never substance use type: does not use Discharge Plan Discharge Plan Patient Disposition: Home Health Service Discharge orders & Medications Prescriptions: New methocarbamol 500 mg Tablet 500 mg PO TID Qty: 90 0RF Humulin 70/30 U-100 Insulin 100 unit/mL (70-30) Suspension 40 unit SUBCUT BIDAC Qty: 20 0RF gabapentin [Neurontin] 300 mg Capsule 300 mg PO TID Qty: 90 0RF Bacid 1 billion cell- 250 mg Tablet 1 ea PO BID Qty: 120 0RF oxycodone 5 mg Tablet 10 mg PO Q3HR PRN (Reason: Pain, Severe (7-10)) Qty: 12 0RF tramadol 100 mg tablet 100 mg PO Q4-6H PRN (Reason: pain) Qty: 30 0RF Rx Instructions: DNExceed 4 doses/24h doxycycline hyclate 100 mg tablet 100 mg PO BID 10 Days Qty: 20 0RF cefdinir 300 mg capsule 300 mg PO Q12H 10 Days Qty: 20 0RF dexamethasone 4 mg tablet 4 mg PO DIRECTED Qty: 10 0RF Rx Instructions: 4 MG PO BID X 2 DAYS 4MG DAILY X 2 DAYS 2 MG DAILY X 2 DAYS THEN STOP Continued metoprolol tartrate 100 mg tablet See Rx Instructions .ROUTE .COMPLEX Qty: 180 3RF Dose Instruction: take 1 tablet by mouth twice a day Rx Instructions: 100 BID furosemide 20 mg tablet 20 mg PO QDAY Qty: 90 3RF losartan 25 mg tablet 25 mg PO DAILY Qty: 90 3RF pantoprazole 40 mg tablet,delayed release (DR/EC) 40 mg PO DAILY Qty: 90 1RF Hold Instructions: taper with omeprazole apixaban 5 mg tablet 5 mg PO DAILY 0RF levothyroxine 175 mcg tablet 175 mcg PO DAILY Qty: 90 3RF rosuvastatin 20 mg tablet 20 mg PO BEDTIME Qty: 90 3RF tamsulosin 0.4 mg capsule 0.4 mg PO BEDTIME Qty: 90 3RF aspirin 81 mg tablet,delayed release (DR/EC) 2 tab PO DAILY 0RF Discontinued Novolin 70/30 U-100 Insulin 100 unit/mL (70-30) suspension 30 unit SUBCUT BID Qty: 20 11RF doxycycline hyclate 100 mg capsule 100 mg PO BID Qty: 6 0RF No Action (DME) Syringes: 1cc Insulin Syringes with [place] 0 .Route .MEDSUPPLY Qty: 100 3RF Dose Instruction: As directed Rx Instructions: Use 1 syringe with 30x12.7 mm needle to inject insulin four times daily. (DME) Liners, suspension sleeves, and socks See Rx Instructions .Route .MEDSUPPLY Qty: 1 0RF Rx Instructions: As directed (DME) Glucose: Test Strips See Rx Instructions .Route .MEDSUPPLY Qty: 250 6RF Dose Instruction: QID; Rx Instructions: Test blood sugar four times a day or as directed by Follow up/Referrals: Pb Montero MD [Primary Care Provider] - () Diet/Activity/Treatments Diet: Carb-consistent/Diabetic, Low-fat and Low-cholesterol Activity: TOLERATED. FALL PRECAUTION AT ALL TIMES Skin/Wound/Dressing Care Report to your healthcare provider any signs of infection, such as:: chills, fever, night sweats and increased pain Other wound treatment: KEEP RIGHT UPPER EXTREMITY ELEVATED WHILE LYING DOWN OR SITTING Visit Report/Discharge Packet Instructions: DI for Cellulitis -- Adult, How to Prevent Falls, What to Eat if You Have Diabetes Discharge Data Primary Care Provider: Pb Montero Quality VTE Deep Vein Thrombosis/Pulmonary Embolism Present on Admission: No
--- NOTE | 2021-11-05 13:54 | PC.NURSE ---
Discharge Note Patient A&O, VSS, RA, no complaints of pain/discomfort. Discharge packet reviewed with patient, prescriptions included in packet, all questions/concerns addressed. All belongings packed and given to patient, patient reminded to berry picker prescriptions form preferred pharmacy on way home. Patient taken down via wheelchair to POV.
--- NOTE | 2021-11-07 07:46 | CM.DPC ---
Late Entry: Patient discharged home with spouse two days ago 11/05/21 to home and d/c note by SW accidentally not written and per Hospitalist d/c to home with HH. Per Ortho who was following for hand cellulitis cleared pt for home on orals and no surgical intervention needed for his hand. SW had met bedside with pt who confirms he is back to baseline with mobility and ADL's and had already told SW on admission that he was not interested in SNF or HH and now that pt back to baseline he would not meet criteria for homebound status for HH as pt plans to return to work and activity and his hand cellulitis is resolving and not currently limiting his ADLs. Pt discharged home with spouse and no current SW needs at this time. ARSENIO Pete
--- NOTE | 2021-11-09 12:28 | P.DS_ITS ---
History of Present Illness History of Present Illness Chief complaint: RT HAND SWELLING HURTS Narrative: The patient is a 75-year-old insulin-dependent diabetic, bilat BKA, atrial fibrillation and is on anticoagulation.? On October 31, 2021 he reported to the emergency room with swelling in his hand and was discharged on oral antibiotics.? He was subsequently admitted to the hospital on the 02 of November.? Orthopedic consultation was requested on 11/03 and the patient was seen and felt to have cellulitis which was responding well to IV antibiotics in the hospital.? He was discharged to home on 11/05/2021.? He subsequently experienced worsening return to the emergency room on the morning of 11/06/2021 .? A CT scan was obtained which showed a localized dorsal abscess in the hand.? He has been readmitted.? This is an interim history and physical.? There are no other medical changes compared to the history and physical was obtained on November 03. Discharge Providers Provider Date of admission: 11/02/21 23:20 Discharge Date: 11/09/21 Primary care physician: Pb Montero MD Consults: 11/02/21 23:21 Consult to Orthopedic Surgery Stat Comment: Consulting Provider: Soniya Arnold Reason for consultation: cellulitis right hand/forearm Has provider been notified: Yes Discharge provider: Paresh Nieto MD Summary Hospital Course Discharge Diagnosis: 1. Right hand cellulitis abscess 2. Diabetes mellitus poor control 3. Chronic atrial fibrillation 4. Chronic anticoagulation 11/06/2021 incision and drainage of right hand abscess with Dr. Marlon Guevara Patient was treated with cefazolin. He had incision and drainage on November 06. Hand appearance is much improved. His wound culture is growing Gram- positive bacilli, likely lab contaminant versus anthrax which is quite rare and unlikely. Patient is being discharged on cephalexin and will follow-up at ortho clinic next week. Follow up final wound culture results next week at ortho clinic. In terms of his diabetic control his A1c is 8.2 which is suboptimal but it seems were patient has been for a long time. No change was made in treatment regimen. Status at Discharge Cognitive/behavioral status at discharge: oriented Functional status at discharge: independent ambulation Overall status at discharge: patient is progressing back to baseline Time Spent with Patient Time spent: Less than 30 minutes Exam Vital Signs (past 8 hours): Oxygen Delivery Method Room Air Oxygen Flow Rate 0 Narrative Exam Narrative: General: Alert and in no distress Extremities: Right hand dressing removed, edema is much improved, surgical incision looks good with small open wound without drainage, erythema much improved Objective Labs Result Diagrams: 11/05/21 05:40 11/05/21 05:40 [facility] Medical History Atrial fibrillation (Unknown) Carotid artery disease (Unknown) Coronary artery disease (Unknown) Diabetes (Unknown) Diabetes, type 1.5, uncontrolled, managed as type 2 Erectile dysfunction (Unknown) GERD (gastroesophageal reflux disease) (Unknown) Hepatitis C (Unknown) Hx of drug abuse Hyperlipemia (Unknown) Hypertension (Unknown) Hypothyroidism (Unknown) Measles (Unknown) Myocardial infarct (10/17/06) Obstructive sleep apnea (Unknown) Peripheral vascular disease (Unknown) Sacral back pain Surgical History History of open reduction and internal fixation (ORIF) procedure (09/2010) History of penile implant Hx of cataract surgery (~2004) Hx of coronary artery bypass surgery (10/2006) S/P bilateral below knee amputation (Unknown) Family History Father Age: 86 Heart disease ETOH abuse Mother Age: 94 Heart disease Alzheimer's dementia without behavioral disturbance, Alzheimer's disease of unspecified onset Social History household members: spouse Smoking Status: Never smoker alcohol intake: never substance use type: does not use Discharge Plan Discharge Plan Patient Disposition: Home Discharge orders & Medications Prescriptions: New Humulin 70/30 U-100 Insulin 100 unit/mL (70-30) Suspension 40 unit SUBCUT BIDAC Qty: 20 0RF gabapentin [Neurontin] 300 mg Capsule 300 mg PO TID Qty: 90 0RF Bacid 1 billion cell- 250 mg Tablet 1 ea PO BID Qty: 120 0RF oxycodone 5 mg Tablet 10 mg PO Q3HR PRN (Reason: Pain, Severe (7-10)) Qty: 12 0RF Continued metoprolol tartrate 100 mg tablet See Rx Instructions .ROUTE .COMPLEX Qty: 180 3RF Dose Instruction: take 1 tablet by mouth twice a day Rx Instructions: 100 BID furosemide 20 mg tablet 20 mg PO QDAY Qty: 90 3RF losartan 25 mg tablet 25 mg PO DAILY Qty: 90 3RF pantoprazole 40 mg tablet,delayed release (DR/EC) 40 mg PO DAILY Qty: 90 1RF Hold Instructions: taper with omeprazole apixaban 5 mg tablet 5 mg PO BID 0RF levothyroxine 175 mcg tablet 175 mcg PO DAILY Qty: 90 3RF rosuvastatin 20 mg tablet 20 mg PO BEDTIME Qty: 90 3RF tamsulosin 0.4 mg capsule 0.4 mg PO BEDTIME Qty: 90 3RF aspirin 81 mg tablet,delayed release (DR/EC) 2 tab PO DAILY 0RF Discontinued Novolin 70/30 U-100 Insulin 100 unit/mL (70-30) suspension 30 unit SUBCUT BID Qty: 20 11RF doxycycline hyclate 100 mg capsule 100 mg PO BID Qty: 6 0RF No Action (DME) Syringes: 1cc Insulin Syringes with [place] 0 .Route .MEDSUPPLY Qty: 100 3RF Dose Instruction: As directed Rx Instructions: Use 1 syringe with 30x12.7 mm needle to inject insulin four times daily. (DME) Liners, suspension sleeves, and socks See Rx Instructions .Route .MEDSUPPLY Qty: 1 0RF Rx Instructions: As directed (DME) Glucose: Test Strips See Rx Instructions .Route .MEDSUPPLY Qty: 250 6RF Dose Instruction: QID; Rx Instructions: Test blood sugar four times a day or as directed by cephalexin 500 mg capsule 500 mg PO TID Qty: 21 0RF Follow up/Referrals: Pb Montero MD [Primary Care Provider] - () Diet/Activity/Treatments Diet: Carb-consistent/Diabetic, Low-fat and Low-cholesterol Activity: TOLERATED. FALL PRECAUTION AT ALL TIMES Skin/Wound/Dressing Care Report to your healthcare provider any signs of infection, such as:: chills, fever, night sweats and increased pain Other wound treatment: KEEP RIGHT UPPER EXTREMITY ELEVATED WHILE LYING DOWN OR SITTING Visit Report/Discharge Packet Instructions: DI for Cellulitis -- Adult, How to Prevent Falls, What to Eat if You Have Diabetes Discharge Data Primary Care Provider: Pb Montero Quality VTE Deep Vein Thrombosis/Pulmonary Embolism Present on Admission: No
== END 2021-11-05 13:45 | disposition home or self-care (01) | DRG 603 ==
LOC: ED 23:20 → AC 23:21
PROVIDERS: Hospitalist; Admitting Provider Emergency Medicine; Emergency Provider Emergency Medicine; PCP Student in an Organized Health Care Education/Training Program; Referring Provider Emergency Medicine; Visit Provider Emergency Medicine
DX: L03.113 Cellulitis of right upper limb (principal); Z68.41 Body mass index [BMI] 40.0-44.9, adult; E13.65 Other specified diabetes mellitus with hyperglycemia; E13.51 Other specified diabetes mellitus with diabetic peripheral angiopathy without gangrene; I48.91 Unspecified atrial fibrillation; G47.33 Obstructive sleep apnea (adult) (pediatric); I10 Essential (primary) hypertension; E78.5 Hyperlipidemia, unspecified; E66.01 Morbid (severe) obesity due to excess calories; F19.10 Other psychoactive substance abuse, uncomplicated; I25.10 Atherosclerotic heart disease of native coronary artery without angina pectoris; Z95.1 Presence of aortocoronary bypass graft; Z79.4 Long term (current) use of insulin; Z79.01 Long term (current) use of anticoagulants; Z89.512 Acquired absence of left leg below knee; Z89.511 Acquired absence of right leg below knee; Z20.822 Contact with and (suspected) exposure to COVID-19
CPT/HCPCS: 36415; 71045; 73130; 80048; 80053; 80305; 81003; 82550; 82962; 83036; 83605; 84100; 84132; 84145; 84484; 85025; 85610; 85730; 87040; 87635; 99283; 99284; C9803; J0696; J1100; J1642; J1815; J2270

== ENCOUNTER 2021-11-06 02:22 | Inpatient (IN) | payer MEDICARE, OTHER, SELFPAY ==
[2021-11-03 00:12] VITALS: BMI 41.5
[2021-11-06] VITALS (19 sets, daily range): BP systolic 132–171; BP diastolic 44–99; PULSE 86–105; RESP 12–20; TEMP 36.1–37.1; O2SAT 85–98; BMI 45.7
--- NOTE | 2021-11-06 02:40 | ED.SKABFB ---
HPI - Skin/Abscess/Foreign Bdy <Kierra Mora, DO - Last Filed: 11/06/21 18:11> General Chief complaint: Skin/Abscess/Foreign Body Stated complaint: rt hand pain/cellulitis x7 days Time Seen by Provider: 11/06/21 02:30 Source: patient Mode of arrival: Wheelchair Limitations: no limitations History of Present Illness HPI narrative: Patient is a 75-year-old male history of IVDA who presents with right hand swelling redness and pain. He was released from the hospital 14 hours ago after being admitted for cellulitis. He was discharged with 10 days of doxycycline cefdinir pain medication and many other medications. He says he feels sleep around 6-7 p.m. woke up and his hand is significantly more erythematous and more painful than it was when he left. No fever or chills. No numbness tingling or weakness. During his admission he stated few nights he was seen evaluated by orthopedics he received IV Rocephin, clindamycin and vancomycin symptoms improved significantly and are now worse. Related Data Home Medications Medication Instructions Recorded Confirmed aspirin 81 mg tablet,delayed 2 tab PO DAILY 09/16/18 11/06/21 release apixaban 5 mg tablet 5 mg PO BID tab 08/22/21 11/07/21 Previous Rx's Medication Instructions Recorded metoprolol tartrate 100 mg tablet See Rx Instructions .ROUTE 10/16/20 .COMPLEX #180 tablet furosemide 20 mg tablet 20 mg PO QDAY #90 tab 10/20/20 losartan 25 mg tablet 25 mg PO DAILY #90 tab 10/20/20 pantoprazole 40 mg tablet,delayed 40 mg PO DAILY #90 tab 02/01/21 release Syringes: 1cc Insulin Syringes #100 each 04/02/21 with [place] Liners, suspension sleeves, and #1 ea 09/11/21 socks levothyroxine 175 mcg tablet 175 mcg PO DAILY #90 tab 10/01/21 tamsulosin 0.4 mg capsule 0.4 mg PO BEDTIME #90 cap 10/01/21 Glucose: Test Strips #250 ea 10/03/21 rosuvastatin 20 mg tablet 20 mg PO BEDTIME #90 tab 10/12/21 L.acidophilus-L.bulgar-B.bifid-S.thermoph 1 ea PO BID #120 tab 11/05/21 1 billion cell-250 mg tablet (Bacid) gabapentin 300 mg capsule 300 mg PO TID #90 cap 11/05/21 (Neurontin) insulin human U-100 NPH-regulr 40 unit (0.4 mL) SUBCUT BIDAC #20 11/05/21 70-30 mix 100 unit/mL subcutaneous ml susp (Humulin 70/30 U-100 Insulin) oxycodone 5 mg tablet 10 mg PO Q3HR PRN #12 tab 11/05/21 Allergies Allergy/AdvReac Type Severity Reaction Status Date / Time adhesive tape [ADHESIVE TAPE] AdvReac Mild PATIENT Verified 09/10/21 17:57 STATES IT PEELS HIS SKIN OFF lisinopril [LISINOPRIL] AdvReac Mild COUGH Verified 09/10/21 17:57 prochlorperazine AdvReac Unknown Verified 09/10/21 17:57 [PROCHLORPERAZINE] shellfish derived AdvReac Unknown Verified 09/10/21 17:57 [SHELLFISH DERIVED] Review of Systems <Kierra Mora DO - Last Filed: 11/06/21 18:11> Review of Systems Narrative: GENERAL: Denies chills,fever HEENT: Denies throat pain RESPIRATORY: Denies dyspnea, cough, wheezing CARDIOVASCULAR: Denies chest pain, palpitations GASTROINTESTINAL: Denies nausea, vomiting MUSCULOSKELETAL: Denies extremity pain, injury SKIN: See HPI NEUROLOGIC: Denies weakness, dizziness, headache, numbness 8 point review of systems is negative except for those stated above and HPI Patient History <Kierra Mora DO - Last Filed: 11/06/21 18:11> Medical History Atrial fibrillation (Unknown) Carotid artery disease (Unknown) Coronary artery disease (Unknown) Diabetes (Unknown) Diabetes, type 1.5, uncontrolled, managed as type 2 Erectile dysfunction (Unknown) GERD (gastroesophageal reflux disease) (Unknown) Hepatitis C (Unknown) Hx of drug abuse Hyperlipemia (Unknown) Hypertension (Unknown) Hypothyroidism (Unknown) Measles (Unknown) Myocardial infarct (10/17/06) Obstructive sleep apnea (Unknown) Peripheral vascular disease (Unknown) Sacral back pain Surgical History History of open reduction and internal fixation (ORIF) procedure (09/2010) History of penile implant Hx of cataract surgery (~2004) Hx of coronary artery bypass surgery (10/2006) S/P bilateral below knee amputation (Unknown) Family History Father Age: 86 Heart disease ETOH abuse Mother Age: 94 Heart disease Alzheimer's dementia without behavioral disturbance, Alzheimer's disease of unspecified onset Social History household members: spouse Smoking Status: Never smoker alcohol intake: never substance use type: does not use Smoking Status: Never smoker alcohol intake frequency: holidays/special occasions only Substance Use Type: marijuana, heroin and IV drugs Exam <DO Rebecca Jennings Last Filed: 11/06/21 18:11> Initial Vital Signs Initial Vital Signs: Vital Signs Temperature 97.6 F 11/06/21 02:36 Pulse Rate 90 11/06/21 02:36 Respiratory Rate 20 11/06/21 02:36 Blood Pressure 154/82 H 11/06/21 02:36 Pulse Oximetry 97 11/06/21 02:36 GENERAL: Alert chronically ill 75-year-old male CARDIOVASCULAR: peripheral pulses in tact, cap refill <2 sec RESPIRATORY: No respiratory distress, speaks in full sentences without difficulty EXTREMITIES: Normal range of motion, no clubbing or edema. Neurovascularly intact NEUROLOGICAL: Cranial nerves II through XII grossly intact. Normal gait and speech. SKIN: Right hand between thumb and index finger is erythematous obviously swollen quite painful in no streaking up the minimal fluctuation measures 5 cm x 5 and 0.5 cm. Forearm is soft hand is soft. <Malathi Fraser DO - Last Filed: 11/09/21 09:02> Initial Vital Signs Initial Vital Signs: Vital Signs Temperature 97.6 F 11/06/21 02:36 Pulse Rate 90 11/06/21 02:36 Respiratory Rate 20 11/06/21 02:36 Blood Pressure 154/82 H 11/06/21 02:36 Pulse Oximetry 97 11/06/21 02:36 Course <DO Rebecca Jennings Last Filed: 11/06/21 18:11> Orders Ordered: Acetaminophen (Acetaminophen 325 Mg Tablet) 975 mg PO TID VICK Last Admin: 11/08/21 20:57 Dose: 975 mg Documented by: Admin: 11/08/21 14:00 Dose: 975 mg Documented by: Admin: 11/08/21 08:51 Dose: 975 mg Documented by: Admin: 11/07/21 21:02 Dose: 975 mg Documented by: Admin: 11/07/21 15:59 Dose: 975 mg Documented by: Admin: 11/07/21 10:09 Dose: 975 mg Documented by: Admin: 11/06/21 21:42 Dose: 975 mg Documented by: KT Apixaban (Apixaban 5 Mg Tablet) 5 mg PO BID [facility] Last Admin: 11/08/21 20:58 Dose: 5 mg Documented by: Admin: 11/08/21 08:50 Dose: 5 mg Documented by: Admin: 11/07/21 21:02 Dose: 5 mg Documented by: KT Aspirin (Aspirin Ec 81 Mg Tablet) 162 mg PO DAILY [facility] Last Admin: 11/08/21 08:50 Dose: 162 mg Documented by: Admin: 11/07/21 10:16 Dose: 162 mg Documented by: GALILEO Atorvastatin Calcium (Atorvastatin 20 Mg Tablet) 40 mg PO BEDTIME [facility] Last Admin: 11/08/21 20:58 Dose: 40 mg Documented by: Admin: 11/07/21 21:02 Dose: 40 mg Documented by: Admin: 11/06/21 21:42 Dose: 40 mg Documented by: KT Cefazolin Sodium/Dextrose (Cefazolin 2 Gm/20 Ml Syringe) 2 gm IV Q8H [facility] Stop: 11/09/21 13:59 Last Admin: 11/09/21 05:58 Dose: 2 gm Documented by: Admin: 11/08/21 21:02 Dose: 2 gm Documented by: Admin: 11/08/21 13:23 Dose: 2 gm Documented by: Admin: 11/08/21 05:36 Dose: 2 gm Documented by: Admin: 11/07/21 22:34 Dose: 2 gm Documented by: Admin: 11/07/21 15:58 Dose: 2 gm Documented by: RYAN Dextrose (Dextrose 50 % In Water 25 Gm/50 Ml Syringe) 25 gm IV PRN PRN PRN Reason: Hypoglycemia Furosemide (Furosemide 20 Mg Tablet) 20 mg PO DAILY [facility] Last Admin: 11/08/21 08:51 Dose: 20 mg Documented by: Admin: 11/07/21 10:17 Dose: 20 mg Documented by: GALILEO Gabapentin (Gabapentin 300 Mg Capsule) 300 mg PO TID [facility] Last Admin: 11/08/21 20:58 Dose: 300 mg Documented by: Admin: 11/08/21 14:02 Dose: 300 mg Documented by: Admin: 11/08/21 08:50 Dose: 300 mg Documented by: Admin: 11/07/21 21:02 Dose: 300 mg Documented by: Admin: 11/07/21 15:59 Dose: 300 mg Documented by: Admin: 11/07/21 11:40 Dose: Not Given Documented by: Admin: 11/06/21 21:42 Dose: 300 mg Documented by: KT Hydralazine HCl (Hydralazine 20 Mg/Ml Vial) 10 mg IV Q6HR PRN PRN Reason: SBP>170 Hydromorphone HCl (Hydromorphone 0.5 Mg Inj) 0.2 mg IV Q1H PRN PRN Reason: Pain, Severe (7-10) Last Admin: 11/06/21 17:25 Dose: 0.2 mg Documented by: DAVIS Insulin Glargine (Insulin Glargine 100 Unit/Ml 3ml Pen) 40 unit SUBCUT BID VICK Last Admin: 11/08/21 21:00 Dose: 40 unit Documented by: KT Owensigned by: RYAN Insulin Human Lispro (Insulin Lispro 100 Unit/Ml 3ml Vial) 0 unit SUBCUT ACHS VICK; Protocol Last Admin: 11/08/21 21:00 Dose: 5 unit Documented by: KT Owensigned by: RYAN Admin: 11/08/21 17:02 Dose: 4 unit Documented by: TODD Cosigned by: KATARINA Admin: 11/08/21 13:24 Dose: 4 unit Documented by: TODD Cosigned by: HODAN Admin: 11/08/21 08:35 Dose: 7 unit Documented by: TODD Owensigned by: KATARINA Admin: 11/07/21 22:27 Dose: Not Given Documented by: Admin: 11/07/21 17:40 Dose: 1 unit Documented by: RYAN Cosigned by: RHONDA Admin: 11/07/21 12:21 Dose: 12 unit Documented by: RYAN Cosigned by: RHONDA Admin: 11/07/21 10:58 Dose: 7 unit Documented by: GALILEO Cosigned by: CECILIA Admin: 11/06/21 22:19 Dose: Not Given Documented by: Admin: 11/06/21 17:14 Dose: 4 unit Documented by: DAVIS Cosigned by: SAMIR Lactobacillus Acidophilus (Lactobacillus Acidophilus Tablet) 1 each PO BID Replaced by [facility] Admin: 11/08/21 20:57 Dose: 1 each Documented by: Admin: 11/08/21 08:51 Dose: 1 each Documented by: Admin: 11/07/21 21:02 Dose: 1 each Documented by: Admin: 11/07/21 10:45 Dose: 1 each Documented by: Admin: 11/06/21 21:42 Dose: 1 each Documented by: KT Levothyroxine Sodium (Levothyroxine 100 Mcg Tablet) 100 mcg PO DAILY@0600 [facility] Last Admin: 11/09/21 05:58 Dose: 100 mcg Documented by: Admin: 11/08/21 05:36 Dose: 100 mcg Documented by: Admin: 11/07/21 05:28 Dose: 100 mcg Documented by: KT Levothyroxine Sodium (Levothyroxine 75 Mcg Tablet) 75 mcg PO DAILY@0600 [facility] Last Admin: 11/09/21 05:58 Dose: 75 mcg Documented by: Admin: 11/08/21 05:36 Dose: 75 mcg Documented by: Admin: 11/07/21 05:28 Dose: 75 mcg Documented by: KT Losartan Potassium (Losartan 25 Mg Tablet) 25 mg PO DAILY [facility] Last Admin: 11/08/21 08:51 Dose: 25 mg Documented by: Admin: 11/07/21 10:18 Dose: 25 mg Documented by: GALILEO Metoprolol Tartrate (Metoprolol Ir 50 Mg Tablet) 100 mg PO BID [facility] Last Admin: 11/08/21 20:58 Dose: 100 mg Documented by: Admin: 11/08/21 08:50 Dose: 100 mg Documented by: Admin: 11/07/21 21:03 Dose: 50 mg Documented by: Admin: 11/07/21 10:56 Dose: Not Given Documented by: Admin: 11/06/21 21:42 Dose: 100 mg Documented by: KT Metoprolol Tartrate (Metoprolol Tartrate 5 Mg/5 Ml Inj) 5 mg IV Q6H PRN PRN Reason: HR>110 AND/OR SBP>180 Naloxone HCl (Naloxone 0.4 Mg/Ml Vial) 0.2 mg IV Q2MIN PRN PRN Reason: Opiate Reversal Ondansetron HCl (Ondansetron 4 Mg Odt) 4 mg PO Q4HR PRN PRN Reason: Nausea And Vomiting Ondansetron HCl (Ondansetron 4 Mg/2 Ml Inj) 4 mg IV Q4HR PRN PRN Reason: Nausea And Vomiting Oxycodone HCl (Oxycodone Ir 10 Mg Tablet) 10 mg PO Q3HR PRN PRN Reason: Pain, Severe (7-10) Last Admin: 11/09/21 06:34 Dose: 10 mg Documented by: Admin: 11/09/21 01:50 Dose: 10 mg Documented by: Admin: 11/08/21 20:57 Dose: 10 mg Documented by: Admin: 11/08/21 13:45 Dose: 10 mg Documented by: Admin: 11/08/21 04:03 Dose: 10 mg Documented by: Admin: 11/07/21 16:01 Dose: 10 mg Documented by: Admin: 11/07/21 05:28 Dose: 10 mg Documented by: Admin: 11/07/21 00:55 Dose: 10 mg Documented by: KT Pantoprazole Sodium (Pantoprazole Dr 40 Mg Tablet) 40 mg PO DAILY [facility] Last Admin: 11/08/21 08:51 Dose: 40 mg Documented by: Admin: 11/07/21 10:17 Dose: 40 mg Documented by: GALILEO Polyethylene Glycol (Polyethylene Glycol 3350 17 Gm Powd.Pack) 17 gm PO DAILY [facility] Last Admin: 11/08/21 09:00 Dose: Not Given Documented by: Admin: 11/07/21 10:12 Dose: 17 gm Documented by: GALILEO Tamsulosin HCl (Tamsulosin 0.4 Mg Capsule) 0.4 mg PO BEDTIME [facility] Last Admin: 11/08/21 20:57 Dose: 0.4 mg Documented by: Admin: 11/07/21 21:02 Dose: 0.4 mg Documented by: Admin: 11/06/21 21:42 Dose: 0.4 mg Documented by: KT Zinc Oxide (Zinc Oxide Oint 60 Gm) 1 applic TOP PRN PRN PRN Reason: Rash Last Admin: 11/08/21 14:05 Dose: 1 applic Documented by: TODD Discontinued Medications Acetaminophen (Acetaminophen 325 Mg Tablet) 650 mg PO PACUNOW PRN PRN Reason: Pain, Mild (1-3) Apixaban (Apixaban 5 Mg Tablet) 5 mg PO DAILY [facility] Last Admin: 11/07/21 12:08 Dose: Not Given Documented by: RYAN Cefazolin Sodium/Dextrose (Cefazolin 2 Gm/20 Ml Syringe) 2 gm IV Q8H [facility] Stop: 11/07/21 06:31 Last Admin: 11/07/21 05:55 Dose: 2 gm Documented by: Admin: 11/06/21 23:37 Dose: 2 gm Documented by: KT Cefdinir (Cefdinir 300 Mg Capsule) 300 mg PO NOW ONE Stop: 11/06/21 02:42 Last Admin: 11/06/21 02:52 Dose: 300 mg Documented by: ROSE Dextrose (Dextrose 50 % In Water 25 Gm/50 Ml Syringe) 25 gm IV PRN PRN; Protocol PRN Reason: Hypoglycemia Doxycycline Hyclate (Doxycycline Hyclate 100 Mg Tablet) 100 mg PO NOW ONE Stop: 11/06/21 02:42 Last Admin: 11/06/21 02:51 Dose: 100 mg Documented by: ROSE Ceftriaxone Sodium 2,000 mg/ (Sodium Chloride) 100 mls @ 200 mls/hr IV NOW ONE Stop: 11/06/21 07:57 Last Infusion: 11/06/21 09:58 Dose: 0 mls/hr Documented by: Admin: 11/06/21 09:28 Dose: 200 mls/hr Documented by: BUCKY Vancomycin HCl/Dextrose (Vancomycin) 1,500 mg in 300 mls @ 200 mls/hr IV NOW ONE Stop: 11/06/21 09:25 Last Admin: 11/06/21 10:40 Dose: 200 mls/hr Documented by: DAVIS Lactated Ringer's (Lactated Ringers) 1,000 mls @ 42 mls/hr IV CONT [facility] Last Admin: 11/06/21 14:50 Dose: 42 mls/hr Documented by: NARCISO Lactated Ringer's (Lactated Ringers) 1,000 mls @ 125 mls/hr IV CONT [facility] Last Infusion: 11/07/21 18:02 Dose: 0 mls/hr Documented by: Admin: 11/07/21 00:55 Dose: 125 mls/hr Documented by: Infusion: 11/07/21 00:45 Dose: 125 mls/hr Documented by: Admin: 11/06/21 16:45 Dose: 125 mls/hr Documented by: DAVIS Insulin Glargine (Insulin Glargine 100 Unit/Ml 3ml Pen) 25 unit SUBCUT BID [facility] Last Admin: 11/07/21 10:40 Dose: 35 unit Documented by: GALILEO Cosigned by: CECILIA Admin: 11/06/21 21:52 Dose: 25 unit Documented by: KT Cosigned by: RAMÍREZ Admin: 11/06/21 19:37 Dose: Not Given Documented by: DAVIS Insulin Glargine (Insulin Glargine 100 Unit/Ml 3ml Pen) 35 unit SUBCUT BID [facility] Last Admin: 11/08/21 08:36 Dose: 35 unit Documented by: TODD Cosigned by: KATARINA Admin: 11/07/21 21:04 Dose: 35 unit Documented by: KT Cosigned by: HILTON Admin: 11/07/21 10:51 Dose: Not Given Documented by: GALILEO Insulin Human Isoph/Insulin Regular (Insulin Nph/Reg 70-30 100 Unit/Ml 3ml Vial) 40 unit SUBCUT BIDAC [facility] Last Admin: 11/06/21 17:16 Dose: Not Given Documented by: DAVIS Insulin Human Lispro (Insulin Lispro 100 Unit/Ml 3ml Vial) 0 unit SUBCUT Q6H VICK; Protocol Last Admin: 11/06/21 13:09 Dose: 12 unit Documented by: DAVIS Cosigned by: SAMIR Insulin Human Lispro (Insulin Lispro 100 Unit/Ml 3ml Vial) 20 unit SUBCUT NOW ONE Stop: 11/06/21 14:28 Last Admin: 11/06/21 14:49 Dose: 20 unit Documented by: NARCISO Cosigned by: ALEX Insulin Human Lispro (Insulin Lispro 100 Unit/Ml 3ml Vial) 10 unit SUBCUT NOW ONE Stop: 11/06/21 15:43 Last Admin: 11/06/21 15:50 Dose: 10 unit Documented by: TREVOR Cosigned by: NARCISO Insulin Human Lispro (Insulin Lispro 100 Unit/Ml 3ml Vial) 20 unit SUBCUT NOW ONE; Protocol Stop: 11/07/21 13:31 Last Admin: 11/07/21 13:26 Dose: 20 unit Documented by: RYAN Cosigned by: RHONDA Magnesium Chloride (Magnesium Chloride 64 Mg Tablet) 128 mg PO NOW ONE Stop: 11/07/21 09:01 Last Admin: 11/07/21 10:56 Dose: 128 mg Documented by: GALILEO Magnesium Chloride (Magnesium Chloride 64 Mg Tablet) 128 mg PO NOW ONE Stop: 11/08/21 11:31 Last Admin: 11/08/21 13:27 Dose: 128 mg Documented by: TODD Metoprolol Tartrate (Metoprolol Tartrate 5 Mg/5 Ml Inj) 5 mg IV NOW ONE Stop: 11/06/21 15:10 Last Admin: 11/06/21 15:09 Dose: 5 mg Documented by: ANI Morphine Sulfate (Morphine 4 Mg/Ml Inj) 4 mg IV NOW ONE Stop: 11/06/21 08:15 Last Admin: 11/06/21 09:28 Dose: 4 mg Documented by: BUCKY Morphine Sulfate (Morphine 2 Mg/Ml Inj) 2 mg IV Q2HR PRN PRN Reason: Pain, Moderate (4-6) Last Admin: 11/06/21 13:17 Dose: 2 mg Documented by: DAVIS Morphine Sulfate (Morphine 10 Mg/Ml Inj) 0 mg IV Q5M PRN PRN Reason: Pain, Moderate (4-6) Oxycodone HCl (Oxycodone Ir 5 Mg Tablet) 10 mg PO PACUNOW PRN PRN Reason: Mild or moderate pain Last Admin: 11/06/21 16:02 Dose: 10 mg Documented by: TREVOR Pantoprazole Sodium (Pantoprazole 40 Mg Vial) 40 mg IV NOW ONE Stop: 11/06/21 14:30 Last Admin: 11/06/21 14:52 Dose: 40 mg Documented by: ANI Polyethylene Glycol (Polyethylene Glycol 3350 17 Gm Powd.Pack) 17 gm PO DAILY PRN PRN Reason: Constipation Tramadol HCl (Tramadol 50 Mg Tablet) 100 mg PO NOW ONE Stop: 11/06/21 02:42 Last Admin: 11/06/21 02:52 Dose: 100 mg Documented by: ROSE Vital Signs Vital signs: Vital Signs - 8 hr 11/06/21 02:36 Temperature 97.6 F Pulse Rate 90 Respiratory Rate 20 Blood Pressure 154/82 H Pulse Oximetry 97 <Malathi Fraser DO - Last Filed: 11/09/21 09:02> Orders Ordered: Acetaminophen (Acetaminophen 325 Mg Tablet) 975 mg PO TID [facility] Last Admin: 11/08/21 20:57 Dose: 975 mg Documented by: Admin: 11/08/21 14:00 Dose: 975 mg Documented by: Admin: 11/08/21 08:51 Dose: 975 mg Documented by: Admin: 11/07/21 21:02 Dose: 975 mg Documented by: Admin: 11/07/21 15:59 Dose: 975 mg Documented by: Admin: 11/07/21 10:09 Dose: 975 mg Documented by: Admin: 11/06/21 21:42 Dose: 975 mg Documented by: KT Apixaban (Apixaban 5 Mg Tablet) 5 mg PO BID [facility] Last Admin: 11/08/21 20:58 Dose: 5 mg Documented by: Admin: 11/08/21 08:50 Dose: 5 mg Documented by: Admin: 11/07/21 21:02 Dose: 5 mg Documented by: KT Aspirin (Aspirin Ec 81 Mg Tablet) 162 mg PO DAILY [facility] Last Admin: 11/08/21 08:50 Dose: 162 mg Documented by: Admin: 11/07/21 10:16 Dose: 162 mg Documented by: GALILEO Atorvastatin Calcium (Atorvastatin 20 Mg Tablet) 40 mg PO BEDTIME [facility] Last Admin: 11/08/21 20:58 Dose: 40 mg Documented by: Admin: 11/07/21 21:02 Dose: 40 mg Documented by: Admin: 11/06/21 21:42 Dose: 40 mg Documented by: KT Cefazolin Sodium/Dextrose (Cefazolin 2 Gm/20 Ml Syringe) 2 gm IV Q8H [facility] Stop: 11/09/21 13:59 Last Admin: 11/09/21 05:58 Dose: 2 gm Documented by: Admin: 11/08/21 21:02 Dose: 2 gm Documented by: Admin: 11/08/21 13:23 Dose: 2 gm Documented by: Admin: 11/08/21 05:36 Dose: 2 gm Documented by: Admin: 11/07/21 22:34 Dose: 2 gm Documented by: Admin: 11/07/21 15:58 Dose: 2 gm Documented by: RYAN Dextrose (Dextrose 50 % In Water 25 Gm/50 Ml Syringe) 25 gm IV PRN PRN PRN Reason: Hypoglycemia Furosemide (Furosemide 20 Mg Tablet) 20 mg PO DAILY [facility] Last Admin: 11/08/21 08:51 Dose: 20 mg Documented by: Admin: 11/07/21 10:17 Dose: 20 mg Documented by: GALILEO Gabapentin (Gabapentin 300 Mg Capsule) 300 mg PO TID [facility] Last Admin: 11/08/21 20:58 Dose: 300 mg Documented by: Admin: 11/08/21 14:02 Dose: 300 mg Documented by: Admin: 11/08/21 08:50 Dose: 300 mg Documented by: Admin: 11/07/21 21:02 Dose: 300 mg Documented by: Admin: 11/07/21 15:59 Dose: 300 mg Documented by: Admin: 11/07/21 11:40 Dose: Not Given Documented by: Admin: 11/06/21 21:42 Dose: 300 mg Documented by: KT Hydralazine HCl (Hydralazine 20 Mg/Ml Vial) 10 mg IV Q6HR PRN PRN Reason: SBP>170 Hydromorphone HCl (Hydromorphone 0.5 Mg Inj) 0.2 mg IV Q1H PRN PRN Reason: Pain, Severe (7-10) Last Admin: 11/06/21 17:25 Dose: 0.2 mg Documented by: DAVIS Insulin Glargine (Insulin Glargine 100 Unit/Ml 3ml Pen) 40 unit SUBCUT BID VICK Last Admin: 11/08/21 21:00 Dose: 40 unit Documented by: KT Cosigned by: RYAN Insulin Human Lispro (Insulin Lispro 100 Unit/Ml 3ml Vial) 0 unit SUBCUT ACHS VICK; Protocol Last Admin: 11/08/21 21:00 Dose: 5 unit Documented by: KT Cosigned by: RYAN Admin: 11/08/21 17:02 Dose: 4 unit Documented by: TODD Owensigned by: KATARINA Admin: 11/08/21 13:24 Dose: 4 unit Documented by: TODD Cosigned by: HODAN Admin: 11/08/21 08:35 Dose: 7 unit Documented by: TODD Owensigned by: KATARINA Admin: 11/07/21 22:27 Dose: Not Given Documented by: Admin: 11/07/21 17:40 Dose: 1 unit Documented by: RYAN Cosigned by: RHONDA Admin: 11/07/21 12:21 Dose: 12 unit Documented by: RYAN Cosigned by: RHONDA Admin: 11/07/21 10:58 Dose: 7 unit Documented by: GALILEO Cosigned by: CECILIA Admin: 11/06/21 22:19 Dose: Not Given Documented by: Admin: 11/06/21 17:14 Dose: 4 unit Documented by: DAVIS Felipe by: SAMIR Lactobacillus Acidophilus (Lactobacillus Acidophilus Tablet) 1 each PO BID [facility] Last Admin: 11/08/21 20:57 Dose: 1 each Documented by: Admin: 11/08/21 08:51 Dose: 1 each Documented by: Admin: 11/07/21 21:02 Dose: 1 each Documented by: Admin: 11/07/21 10:45 Dose: 1 each Documented by: Admin: 11/06/21 21:42 Dose: 1 each Documented by: KT Levothyroxine Sodium (Levothyroxine 100 Mcg Tablet) 100 mcg PO DAILY@0600 [facility] Last Admin: 11/09/21 05:58 Dose: 100 mcg Documented by: Admin: 11/08/21 05:36 Dose: 100 mcg Documented by: Admin: 11/07/21 05:28 Dose: 100 mcg Documented by: KT Levothyroxine Sodium (Levothyroxine 75 Mcg Tablet) 75 mcg PO DAILY@0600 [facility] Last Admin: 11/09/21 05:58 Dose: 75 mcg Documented by: Admin: 11/08/21 05:36 Dose: 75 mcg Documented by: Admin: 11/07/21 05:28 Dose: 75 mcg Documented by: KT Losartan Potassium (Losartan 25 Mg Tablet) 25 mg PO DAILY [facility] Last Admin: 11/08/21 08:51 Dose: 25 mg Documented by: Admin: 11/07/21 10:18 Dose: 25 mg Documented by: GALILEO Metoprolol Tartrate (Metoprolol Ir 50 Mg Tablet) 100 mg PO BID [facility] Last Admin: 11/08/21 20:58 Dose: 100 mg Documented by: Admin: 11/08/21 08:50 Dose: 100 mg Documented by: Admin: 11/07/21 21:03 Dose: 50 mg Documented by: Admin: 11/07/21 10:56 Dose: Not Given Documented by: Admin: 11/06/21 21:42 Dose: 100 mg Documented by: KT Metoprolol Tartrate (Metoprolol Tartrate 5 Mg/5 Ml Inj) 5 mg IV Q6H PRN PRN Reason: HR>110 AND/OR SBP>180 Naloxone HCl (Naloxone 0.4 Mg/Ml Vial) 0.2 mg IV Q2MIN PRN PRN Reason: Opiate Reversal Ondansetron HCl (Ondansetron 4 Mg Odt) 4 mg PO Q4HR PRN PRN Reason: Nausea And Vomiting Ondansetron HCl (Ondansetron 4 Mg/2 Ml Inj) 4 mg IV Q4HR PRN PRN Reason: Nausea And Vomiting Oxycodone HCl (Oxycodone Ir 10 Mg Tablet) 10 mg PO Q3HR PRN PRN Reason: Pain, Severe (7-10) Last Admin: 11/09/21 06:34 Dose: 10 mg Documented by: Admin: 11/09/21 01:50 Dose: 10 mg Documented by: Admin: 11/08/21 20:57 Dose: 10 mg Documented by: Admin: 11/08/21 13:45 Dose: 10 mg Documented by: Admin: 11/08/21 04:03 Dose: 10 mg Documented by: Admin: 11/07/21 16:01 Dose: 10 mg Documented by: Admin: 11/07/21 05:28 Dose: 10 mg Documented by: Admin: 11/07/21 00:55 Dose: 10 mg Documented by: KT Pantoprazole Sodium (Pantoprazole Dr 40 Mg Tablet) 40 mg PO DAILY FORMERLY [facility], [facility] Last Admin: 11/08/21 08:51 Dose: 40 mg Documented by: Admin: 11/07/21 10:17 Dose: 40 mg Documented by: GALILEO Polyethylene Glycol (Polyethylene Glycol 3350 17 Gm Powd.Pack) 17 gm PO DAILY [facility] Last Admin: 11/08/21 09:00 Dose: Not Given Documented by: Admin: 11/07/21 10:12 Dose: 17 gm Documented by: GALILEO Tamsulosin HCl (Tamsulosin 0.4 Mg Capsule) 0.4 mg PO BEDTIME [facility] Last Admin: 11/08/21 20:57 Dose: 0.4 mg Documented by: Admin: 11/07/21 21:02 Dose: 0.4 mg Documented by: Admin: 11/06/21 21:42 Dose: 0.4 mg Documented by: KT Zinc Oxide (Zinc Oxide Oint 60 Gm) 1 applic TOP PRN PRN PRN Reason: Rash Last Admin: 11/08/21 14:05 Dose: 1 applic Documented by: TODD Discontinued Medications Acetaminophen (Acetaminophen 325 Mg Tablet) 650 mg PO PACUNOW PRN PRN Reason: Pain, Mild (1-3) Apixaban (Apixaban 5 Mg Tablet) 5 mg PO DAILY [facility] Last Admin: 11/07/21 12:08 Dose: Not Given Documented by: RYAN Cefazolin Sodium/Dextrose (Cefazolin 2 Gm/20 Ml Syringe) 2 gm IV Q8H VICK Stop: 11/07/21 06:31 Last Admin: 11/07/21 05:55 Dose: 2 gm Documented by: Admin: 11/06/21 23:37 Dose: 2 gm Documented by: KT Cefdinir (Cefdinir 300 Mg Capsule) 300 mg PO NOW ONE Stop: 11/06/21 02:42 Last Admin: 11/06/21 02:52 Dose: 300 mg Documented by: ROSE Dextrose (Dextrose 50 % In Water 25 Gm/50 Ml Syringe) 25 gm IV PRN PRN; Protocol PRN Reason: Hypoglycemia Doxycycline Hyclate (Doxycycline Hyclate 100 Mg Tablet) 100 mg PO NOW ONE Stop: 11/06/21 02:42 Last Admin: 11/06/21 02:51 Dose: 100 mg Documented by: ROSE Ceftriaxone Sodium 2,000 mg/ (Sodium Chloride) 100 mls @ 200 mls/hr IV NOW ONE Stop: 11/06/21 07:57 Last Infusion: 11/06/21 09:58 Dose: 0 mls/hr Documented by: Admin: 11/06/21 09:28 Dose: 200 mls/hr Documented by: BUCKY Vancomycin HCl/Dextrose (Vancomycin) 1,500 mg in 300 mls @ 200 mls/hr IV NOW ONE Stop: 11/06/21 09:25 Last Admin: 11/06/21 10:40 Dose: 200 mls/hr Documented by: DAVIS Lactated Ringer's (Lactated Ringers) 1,000 mls @ 42 mls/hr IV CONT VICK Last Admin: 11/06/21 14:50 Dose: 42 mls/hr Documented by: NARCISO Lactated Ringer's (Lactated Ringers) 1,000 mls @ 125 mls/hr IV CONT VICK Last Infusion: 11/07/21 18:02 Dose: 0 mls/hr Documented by: Admin: 11/07/21 00:55 Dose: 125 mls/hr Documented by: Infusion: 11/07/21 00:45 Dose: 125 mls/hr Documented by: Admin: 11/06/21 16:45 Dose: 125 mls/hr Documented by: DAVIS Insulin Glargine (Insulin Glargine 100 Unit/Ml 3ml Pen) 25 unit SUBCUT BID [facility] Last Admin: 11/07/21 10:40 Dose: 35 unit Documented by: GALILEO Cosigned by: CECILIA Admin: 11/06/21 21:52 Dose: 25 unit Documented by: KT Cosigned by: RAMÍREZ Admin: 11/06/21 19:37 Dose: Not Given Documented by: DAVIS Insulin Glargine (Insulin Glargine 100 Unit/Ml 3ml Pen) 35 unit SUBCUT BID [facility] Last Admin: 11/08/21 08:36 Dose: 35 unit Documented by: TODD Cosigned by: KATARINA Admin: 11/07/21 21:04 Dose: 35 unit Documented by: KT Cosigned by: HILTON Admin: 11/07/21 10:51 Dose: Not Given Documented by: GALILEO Insulin Human Isoph/Insulin Regular (Insulin Nph/Reg 70-30 100 Unit/Ml 3ml Vial) 40 unit SUBCUT BIDAC [facility] Last Admin: 11/06/21 17:16 Dose: Not Given Documented by: DAVIS Insulin Human Lispro (Insulin Lispro 100 Unit/Ml 3ml Vial) 0 unit SUBCUT Q6H [facility]; Protocol Last Admin: 11/06/21 13:09 Dose: 12 unit Documented by: DAVIS Cosigned by: SAMIR Insulin Human Lispro (Insulin Lispro 100 Unit/Ml 3ml Vial) 20 unit SUBCUT NOW ONE Stop: 11/06/21 14:28 Last Admin: 11/06/21 14:49 Dose: 20 unit Documented by: NARCISO Cosigned by: ALEX Insulin Human Lispro (Insulin Lispro 100 Unit/Ml 3ml Vial) 10 unit SUBCUT NOW ONE Stop: 11/06/21 15:43 Last Admin: 11/06/21 15:50 Dose: 10 unit Documented by: [email or web address] Cosigned by: NARCISO Insulin Human Lispro (Insulin Lispro 100 Unit/Ml 3ml Vial) 20 unit SUBCUT NOW ONE; Protocol Stop: 11/07/21 13:31 Last Admin: 11/07/21 13:26 Dose: 20 unit Documented by: RYAN Cosigned by: GPEREZ Magnesium Chloride (Magnesium Chloride 64 Mg Tablet) 128 mg PO NOW ONE Stop: 11/07/21 09:01 Last Admin: 11/07/21 10:56 Dose: 128 mg Documented by: GALILEO Magnesium Chloride (Magnesium Chloride 64 Mg Tablet) 128 mg PO NOW ONE Stop: 11/08/21 11:31 Last Admin: 11/08/21 13:27 Dose: 128 mg Documented by: TODD Metoprolol Tartrate (Metoprolol Tartrate 5 Mg/5 Ml Inj) 5 mg IV NOW ONE Stop: 11/06/21 15:10 Last Admin: 11/06/21 15:09 Dose: 5 mg Documented by: ANI Morphine Sulfate (Morphine 4 Mg/Ml Inj) 4 mg IV NOW ONE Stop: 11/06/21 08:15 Last Admin: 11/06/21 09:28 Dose: 4 mg Documented by: BUCKY Morphine Sulfate (Morphine 2 Mg/Ml Inj) 2 mg IV Q2HR PRN PRN Reason: Pain, Moderate (4-6) Last Admin: 11/06/21 13:17 Dose: 2 mg Documented by: DAVIS Morphine Sulfate (Morphine 10 Mg/Ml Inj) 0 mg IV Q5M PRN PRN Reason: Pain, Moderate (4-6) Oxycodone HCl (Oxycodone Ir 5 Mg Tablet) 10 mg PO PACUNOW PRN PRN Reason: Mild or moderate pain Last Admin: 11/06/21 16:02 Dose: 10 mg Documented by: TREVOR Pantoprazole Sodium (Pantoprazole 40 Mg Vial) 40 mg IV NOW ONE Stop: 11/06/21 14:30 Last Admin: 11/06/21 14:52 Dose: 40 mg Documented by: ANI Polyethylene Glycol (Polyethylene Glycol 3350 17 Gm Powd.Pack) 17 gm PO DAILY PRN PRN Reason: Constipation Tramadol HCl (Tramadol 50 Mg Tablet) 100 mg PO NOW ONE Stop: 11/06/21 02:42 Last Admin: 11/06/21 02:52 Dose: 100 mg Documented by: ROSE Reevaluation(s) Reevaluation #1: Patient was signed out to myself by Dr. Mora. Patient was initially by myself. On repeat evaluation the generalized swelling of his arm and hand has improved but he does have some very localized erythema over the dorsum of the hand the same very he had on his initial visit to myself. CT was pending and signed out to myself and does show fluid collection concerning for abscess. His labs are otherwise reassuring he does not appear septic. He was started on same antibiotics he had in the hospital as he had improvement, contacted General surgery who will take him to the OR later today for drainage. Consultations Consultation #1: Dr. Guevara, reviewed patient's imaging. Patient was recently hospitalized here for cellulitis but imaging today does show abscess. Plan to restart IV antibiotics that patient was on in the hospital. Dr. Guevara will see the patient later today with plan for OR. Plan to admit under orthopedic surgery. NPO at this time. Time: 08:02 Vital Signs Vital signs: Vital Signs - 8 hr 11/06/21 02:36 Temperature 97.6 F Pulse Rate 90 Respiratory Rate 20 Blood Pressure 154/82 H Pulse Oximetry 97 MDM - Skin/Abscess/Foreign Bdy <Kierra Mora DO - Last Filed: 11/06/21 18:11> Lab Data Result diagrams: 11/07/21 06:00 11/09/21 06:00 Labs: Lab Results 11/06/21 11/06/21 Range/Units 06:15 06:15 WBC 9.1 (4.5-11.0) X10^3/uL RBC 4.48 L (4.5-5.9) X10^6/uL Hgb 12.4 L (13.5-17.5) g/dL Hct 37.0 L (41-53) % MCV 82.5 (80-100) fL MCH 27.7 (26-34) PG MCHC 33.5 (30-36) % RDW 13.4 (11.6-14.8) % Plt Count 220 (150-400) X10^3/uL Neut % (Auto) 72.5 (50-75) % Lymph % (Auto) 15.8 L (25-40) % [place] % (Auto) 7.4 (3-14) % Eos % (Auto) 3.4 (2-4) % Baso % (Auto) 0.9 (0-2) % Neut # (Auto) 6600 (9942-3769) /uL Lymph # (Auto) 1400 (4153-9284) /uL [place] # (Auto) 700 (0-900) /uL Eos # (Auto) 300 (0-450) /uL Baso # (Auto) 100 (0-100) /uL Sodium 134 L (137-145) mmol/L Potassium 4.4 (3.4-5.1) mmol/L Chloride 103 (98-107) mmol/L Carbon Dioxide 28 (22-32) mmol/L BUN 19 (9-20) mg/dL Creatinine 0.87 (0.66-1.25) mg/dL Estimated GFR > 60.0 (>60) mL/min BUN/Creatinine Ratio 21.8 (6-22) Glucose 314 H D (80-110) mg/dL Calcium 9.0 (8.4-10.2) mg/dL Total Bilirubin 0.5 (0.2-1.3) mg/dL AST 19 (17-59) IU/L ALT 13 (<50) IU/L Alkaline Phosphatase 93 (38-126) U/L Total Protein 6.3 (6.3-8.2) g/dL Albumin 3.3 L (3.5-5.0) g/dL Globulin 3.0 (1.7-4.1) g/dL Albumin/Globulin Ratio 1.1 (1.0-2.8) MDM Narrative Medical decision making narrative: Patient initially reports significant improvement he says this redness and pain is much worse than it was just a few hours ago. It seems as though he missed his nightly dose of antibiotics although he says he filled all of his prescriptions. Bedside ultrasound done by myself does not show any obvious abscess. He previously did not have any imaging other than a x-ray of his hand. I have called and spoken with the fuel cell assembler states he never saw the patient unable to tell if it truly has worsened or not. But does agree with imaging Patient is extremely hard IV start. With bedside ultrasound I attempted a few times but was unsuccessful. Waiting for after hours PICC line to come in. The patient overall does not appear septic he is quite cooperative. There is obvious redness and pain. Singed out to Dr. Fraser awaiting CT results. This is a 75-year-old male who comes in with complaint of right hand pain and cellulitis for 7 days. Patient was admitted by myself earlier in the week. He spent several days in the hospital on IV antibiotics with improvement he was discharged yesterday around 1:00 p.m. and states the redness and pain have increased since discharge. He does not have fever or other systemic systems. The overnight physician ordered CT of the upper extremity which does show a fluid collection consistent with developing abscess. I discussed with Dr. Guevara from Orthopedic surgery who kindly accepts for observation under his service with plan for OR later today. <Malathi Fraser, DO - Last Filed: 11/09/21 09:02> Lab Data Labs: Lab Results 11/06/21 11/06/21 Range/Units 06:15 06:15 WBC 9.1 (4.5-11.0) X10^3/uL RBC 4.48 L (4.5-5.9) X10^6/uL Hgb 12.4 L (13.5-17.5) g/dL Hct 37.0 L (41-53) % MCV 82.5 (80-100) fL MCH 27.7 (26-34) PG MCHC 33.5 (30-36) % RDW 13.4 (11.6-14.8) % Plt Count 220 (150-400) X10^3/uL Neut % (Auto) 72.5 (50-75) % Lymph % (Auto) 15.8 L (25-40) % [place] % (Auto) 7.4 (3-14) % Eos % (Auto) 3.4 (2-4) % Baso % (Auto) 0.9 (0-2) % Neut # (Auto) 6600 (6499-4270) /uL Lymph # (Auto) 1400 (9927-4832) /uL [place] # (Auto) 700 (0-900) /uL Eos # (Auto) 300 (0-450) /uL Baso # (Auto) 100 (0-100) /uL Sodium 134 L (137-145) mmol/L Potassium 4.4 (3.4-5.1) mmol/L Chloride 103 (98-107) mmol/L Carbon Dioxide 28 (22-32) mmol/L BUN 19 (9-20) mg/dL Creatinine 0.87 (0.66-1.25) mg/dL Estimated GFR > 60.0 (>60) mL/min BUN/Creatinine Ratio 21.8 (6-22) Glucose 314 H D (80-110) mg/dL Calcium 9.0 (8.4-10.2) mg/dL Total Bilirubin 0.5 (0.2-1.3) mg/dL AST 19 (17-59) IU/L ALT 13 (<50) IU/L Alkaline Phosphatase 93 (38-126) U/L Total Protein 6.3 (6.3-8.2) g/dL Albumin 3.3 L (3.5-5.0) g/dL Globulin 3.0 (1.7-4.1) g/dL Albumin/Globulin Ratio 1.1 (1.0-2.8) Imaging Data CT upper extremity: Radiologist's Impression: [address] [address] [address] Scan Report Signed Patient: Tulio Yi MR#: [id number] : 1945 Acct:[id number] Age/Sex: 75 / M Date of Service: 11/06/21 Loc: 90B-1 Accession Number: [id number] ?? Procedure: CT UE RT w con Ordering Provider: Kierra Mora D.O. PROCEDURE:? CT UE RT W CON ? INDICATIONS:? possible right hand abcess ? TECHNIQUE:? After the administration of intravenous contrast, 3 mm axial sections acquired of the right hand, with coronal and sagittal reformats. ? ? COMPARISON:? [facility], [facility], XR HAND RT MIN 3V, 10/31/2021, 23:29. ? FINDINGS:? Image quality:? Excellent.? ? Bones:? No fracture or dislocation.? No bony erosion or periosteal reaction. ? Soft tissues:? There is a fluid collection in the dorsal aspect of the hand adjacent to the 2nd metacarpal measuring 1.5 x 2.4 x 4.2 cm, demonstrating subtle peripheral enhancement, suspicious for abscess. ? IMPRESSION:? A fluid collection in the dorsal aspect of the hand adjacent to the 2nd metacarpal measuring 1.5 x 2.4 x 4 point cm, suspicious for an abscess. ? ? No significant discrepancy with the night filler radiology preliminary report. ? ? Dictated by: Norman Cruz M.D. on 11/06/2021 at 8:12 ? ? Approved by: Norman Cruz M.D. on 11/06/2021 at 8:19?? MDM Narrative Medical decision making narrative: Patient initially reports significant improvement he says this redness and pain is much worse than it was just a few hours ago. It seems as though he missed his nightly dose of antibiotics although he says he filled all of his prescriptions. Bedside ultrasound done by myself does not show any obvious abscess. He previously did not have any imaging other than a x-ray of his hand. I have called and spoken with the fuel cell assembler states he never saw the patient unable to tell if it truly has worsened or not. But does agree with imaging Patient is extremely hard IV start. With bedside ultrasound I attempted a few times but was unsuccessful. Waiting for after hours PICC line to come in. The patient overall does not appear septic he is quite cooperative. There is obvious redness and pain. This is a 75-year-old male who comes in with complaint of right hand pain and cellulitis for 7 days. Patient was admitted by myself earlier in the week. He spent several days in the hospital on IV antibiotics with improvement he was discharged yesterday around 1:00 p.m. and states the redness and pain have increased since discharge. He does not have fever or other systemic systems. The overnight physician ordered CT of the upper extremity which does show a fluid collection consistent with developing abscess. I discussed with Dr. Guevara from Orthopedic surgery who kindly accepts for observation under his service with plan for OR later today. Discharge Plan Departure Patient Disposition: Admitted as Observation Clinical Impression: Abscess of hand, right, Cellulitis Admit Date/Time: 11/06/21 08:06 Admit Provider: Varghese Guevara
[2021-11-06] MEDS: DOXYCYCLINE HYCLATE 100 MG TABLET PO (02:51)
[2021-11-06] MEDS: TRAMADOL 50 MG TABLET 100 MG PO (02:52)
[2021-11-06] MEDS: CEFDINIR 300 MG CAPSULE PO (02:52)
--- NOTE | 2021-11-06 03:37 | DI.CT.S_ITS ---
PROCEDURE: CT UE RT W CON INDICATIONS: possible right hand abcess TECHNIQUE: After the administration of intravenous contrast, 3 mm axial sections acquired of the right hand, with coronal and sagittal reformats. COMPARISON: [facility], [facility], XR HAND RT MIN 3V, 10/31/2021, 23:29. FINDINGS: Image quality: Excellent. Bones: No fracture or dislocation. No bony erosion or periosteal reaction. Soft tissues: There is a fluid collection in the dorsal aspect of the hand adjacent to the 2nd metacarpal measuring 1.5 x 2.4 x 4.2 cm, demonstrating subtle peripheral enhancement, suspicious for abscess. IMPRESSION: A fluid collection in the dorsal aspect of the hand adjacent to the 2nd metacarpal measuring 1.5 x 2.4 x 4 point cm, suspicious for an abscess. No significant discrepancy with the caustic cresylate shift superintendent radiology preliminary report. Dictated by: Norman Cruz M.D. on 11/06/2021 at 8:12 Approved by: Norman Cruz M.D. on 11/06/2021 at 8:19
--- NOTE | 2021-11-06 04:23 | PC.NURSE ---
Dr Mora unable to place PIV with US. [facility]erc[facility] vascular paged for midline placement. ETA 0500.
--- NOTE | 2021-11-06 05:41 | PC.NURSE ---
PICC RASHEEDA Vazquez now at bedside for midline placement
[2021-11-06 06:37] LABS: Add Manual Diff / Slide Review NO; Basophils Absolute Auto 100 /uL (0-100); Basophils Percent Auto 0.9 % (0-2); Eosinophils Absolute Auto 300 /uL (0-450); Eosinophils Percent Auto 3.4 % (2-4); Hemoglobin 12.4 g/dL (13.5-17.5); Lymphocytes Absolute Auto 1400 /uL (1100-4500); Lymphocytes Percent Auto 15.8 % (25-40); Mean Corpuscular HGB Conc 33.5 % (30-36); Mean Corpuscular Hemoglobin 27.7 PG (26-34); Mean Corpuscular Volume 82.5 fL (80-100); Monocytes Absolute Auto 700 /uL (0-900); Monocytes Percent Auto 7.4 % (3-14); Neutrophils Absolute Auto 6600 /uL (1500-7000); Neutrophils Percent Auto 72.5 % (50-75); Platelet Count 220 X10^3/uL (150-400); Red Blood Cell Count 4.48 X10^6/uL (4.5-5.9); Red Cell Distribution Width 13.4 % (11.6-14.8); White Blood Cell Count 9.1 X10^3/uL (4.5-11.0)
[2021-11-06 06:47] LABS: Alanine Aminotransferase 13 IU/L (<50); Albumin 3.3 g/dL (3.5-5.0); Albumin Globulin Ratio 1.1 (1.0-2.8); Alkaline Phosphatase 93 U/L (38-126); Aspartate Aminotransferase 19 IU/L (17-59); BUN Creatinine Ratio 21.8 (6-22); Bilirubin Total 0.5 mg/dL (0.2-1.3); Blood Urea Nitrogen 19 mg/dL (9-20); Carbon Dioxide 28 mmol/L (22-32); Chloride 103 mmol/L (98-107); Estimated Glomerular Filt Rate > 60.0 mL/min (>60); Glucose 314 mg/dL (80-110); HEMOLYSIS < 15 (0-50); Potassium 4.4 mmol/L (3.4-5.1); Sodium 134 mmol/L (137-145); Total Protein 6.3 g/dL (6.3-8.2)
[2021-11-06] MEDS: cefTRIAXone 2,000 MG in SODIUM CHLORIDE 0.9% 100 ML 200 ML IV (09:28)
[2021-11-06] MEDS: MORPHINE 4 MG/ML INJ IV (09:28)
[2021-11-06 09:55] LABS: COVID19 -Nasal RAPID Negative (Negative)
[2021-11-06 10:18] LABS: COVID19 - ADMIT (NP swab/PCR) Negative (Negative)
[2021-11-06] MEDS: VANCOMYCIN 1,500 MG/300 ML PIGGYBACK 200 MG IV (10:40)
[2021-11-06] MEDS: INSULIN LISPRO 100 UNIT/ML 3ML VIAL SUBCUT ×2 (13:09→17:14)
[2021-11-06] MEDS: MORPHINE 2 MG/ML INJ IV (13:17)
--- NOTE | 2021-11-06 14:07 | PM.HP.1 ---
History of Present Illness History of Present Illness Date Patient Seen: 11/06/21 Time Patient Seen: 14:00 Date of Onset of Symptoms: 10/31/21 Chief complaint: rt hand pain/cellulitis x7 days Narrative: The patient is a 75-year-old insulin-dependent diabetic him who has atrial fibrillation and is on anticoagulation. On October 31, 2021 he reported to the emergency room with swelling in his hand and was discharged on oral antibiotics. He was subsequently admitted to the hospital on the 02 of November. Orthopedic consultation was requested on 11/03 and the patient was seen and felt to have cellulitis which was responding well to IV antibiotics in the hospital. He was discharged to home on 11/05/2021. He subsequently experienced worsening return to the emergency room on the morning of 11/06/2021. A CT scan was obtained which showed a localized dorsal abscess in the hand. He has been readmitted. This is an interim history and physical. There are no other medical changes compared to the history and physical was obtained on November 03. Patient History Medical History Atrial fibrillation (Unknown) Carotid artery disease (Unknown) Coronary artery disease (Unknown) Diabetes (Unknown) Diabetes, type 1.5, uncontrolled, managed as type 2 Erectile dysfunction (Unknown) GERD (gastroesophageal reflux disease) (Unknown) Hepatitis C (Unknown) Hx of drug abuse Hyperlipemia (Unknown) Hypertension (Unknown) Hypothyroidism (Unknown) Measles (Unknown) Myocardial infarct (10/17/06) Obstructive sleep apnea (Unknown) Peripheral vascular disease (Unknown) Sacral back pain Surgical History History of open reduction and internal fixation (ORIF) procedure (09/2010) History of penile implant Hx of cataract surgery (~2004) Hx of coronary artery bypass surgery (10/2006) S/P bilateral below knee amputation (Unknown) Family & Social History Family History Father Age: 86 Heart disease ETOH abuse Mother Age: 94 Heart disease Alzheimer's dementia without behavioral disturbance, Alzheimer's disease of unspecified onset Social History: household members spouse Prior Living Arrangements House Safety & Behavioral: Feels Safe in Current Yes Environment Been Physically Hurt or No Threatened By a Person Suicidal Ideation Description None Suicide Plan Description No Plan Tobacco & Substance use: Smoking Status Never smoker alcohol intake never alcohol intake frequency holiday/special occasion Substance Use Type marijuana,IV drugs,heroin Meds Home Medications and Allergies Home Medications Medication Instructions Recorded Confirmed Type aspirin 81 mg tablet,delayed 2 tab PO DAILY 09/16/18 11/06/21 History release metoprolol tartrate 100 mg tablet See Rx Instructions .ROUTE 10/16/20 11/06/21 Rx .COMPLEX #180 tablet furosemide 20 mg tablet 20 mg PO QDAY #90 tab 10/20/20 11/06/21 Rx losartan 25 mg tablet 25 mg PO DAILY #90 tab 10/20/20 11/06/21 Rx pantoprazole 40 mg tablet,delayed 40 mg PO DAILY #90 tab 02/01/21 11/06/21 Rx release Syringes: 1cc Insulin Syringes #100 each 04/02/21 11/04/21 Rx with Fallentimber apixaban 5 mg tablet 5 mg PO DAILY tab 08/22/21 11/06/21 History Liners, suspension sleeves, and #1 ea 09/11/21 11/04/21 Rx socks levothyroxine 175 mcg tablet 175 mcg PO DAILY #90 tab 10/01/21 11/06/21 Rx tamsulosin 0.4 mg capsule 0.4 mg PO BEDTIME #90 cap 10/01/21 11/06/21 Rx Glucose: Test Strips #250 ea 10/03/21 11/04/21 Rx rosuvastatin 20 mg tablet 20 mg PO BEDTIME #90 tab 10/12/21 11/06/21 Rx L.acidophilus-L.bulgar-B.bifid-S.thermoph 1 ea PO BID #120 tab 11/05/21 11/06/21 Rx 1 billion cell-250 mg tablet (Bacid) cefdinir 300 mg capsule 300 mg PO Q12H 10 Days #20 cap 11/05/21 Rx dexamethasone 4 mg tablet 4 mg PO DIRECTED #10 tab 11/05/21 Rx doxycycline hyclate 100 mg tablet 100 mg PO BID 10 Days #20 tab 11/05/21 Rx gabapentin 300 mg capsule 300 mg PO TID #90 cap 11/05/21 11/06/21 Rx (Neurontin) insulin human U-100 NPH-regulr 40 unit (0.4 mL) SUBCUT BIDAC #20 11/05/21 11/06/21 Rx 70-30 mix 100 unit/mL subcutaneous ml susp (Humulin 70/30 U-100 Insulin) methocarbamol 500 mg tablet 500 mg PO TID #90 tab 11/05/21 Rx oxycodone 5 mg tablet 10 mg PO Q3HR PRN #12 tab 11/05/21 11/06/21 Rx tramadol 100 mg tablet 100 mg PO Q4-6H PRN #30 tab 11/05/21 Rx Allergies Allergy/AdvReac Type Severity Reaction Status Date / Time adhesive tape [ADHESIVE TAPE] AdvReac Mild PATIENT Verified 09/10/21 17:57 STATES IT PEELS HIS SKIN OFF lisinopril [LISINOPRIL] AdvReac Mild COUGH Verified 09/10/21 17:57 prochlorperazine AdvReac Unknown Verified 09/10/21 17:57 [PROCHLORPERAZINE] shellfish derived AdvReac Unknown Verified 09/10/21 17:57 [SHELLFISH DERIVED] Review of Systems Review of Systems Narrative: The patient denies systemic symptoms of infection such as fevers, chills, rigors, nausea or sweats. Exam Vital Signs (past 8 hours): - 11/06/21 09:34 11/06/21 09:36 11/06/21 10:11 Temperature 98.5 F Pulse Rate 88 105 H 88 Respiratory Rate 18 18 Blood Pressure 137/78 156/70 H Pulse Oximetry 96 96 95 11/06/21 13:02 Temperature 98.0 F Pulse Rate 96 H Respiratory Rate 16 Blood Pressure 137/64 Pulse Oximetry 97 Oxygen Delivery Method Room Air Oxygen Flow Rate 0 Narrative Exam Narrative: Right hand is notable for redness overlying the metacarpal of the index finger on the dorsal aspect with no tenderness in the palm. Light touch is intact in the fingertips. He is quite tender over the area of redness. This is more indurated and firm than it was when he was discharged yesterday. Objective Labs Result Diagrams: 11/06/21 06:15 11/06/21 06:15 Labs: Laboratory Results - last 24 hr 11/06/21 11/06/21 11/06/21 06:15 06:15 09:34 WBC 9.1 RBC 4.48 L Hgb 12.4 L Hct 37.0 L MCV 82.5 MCH 27.7 MCHC 33.5 RDW 13.4 Plt Count 220 Neut % (Auto) 72.5 Lymph % (Auto) 15.8 L Saunders % (Auto) 7.4 Eos % (Auto) 3.4 Baso % (Auto) 0.9 Neut # (Auto) 6600 Lymph # (Auto) 1400 Saunders # (Auto) 700 Eos # (Auto) 300 Baso # (Auto) 100 Sodium 134 L Potassium 4.4 Chloride 103 Carbon Dioxide 28 BUN 19 Creatinine 0.87 Estimated GFR > 60.0 BUN/Creatinine Ratio 21.8 Glucose 314 H D Calcium 9.0 Total Bilirubin 0.5 AST 19 ALT 13 Alkaline Phosphatase 93 Total Protein 6.3 Albumin 3.3 L Globulin 3.0 Albumin/Globulin Ratio 1.1 SARS-CoV-2 (PCR) Negative 11/06/21 09:38 WBC RBC Hgb Hct MCV MCH MCHC RDW Plt Count Neut % (Auto) Lymph % (Auto) Saunders % (Auto) Eos % (Auto) Baso % (Auto) Neut # (Auto) Lymph # (Auto) Saunders # (Auto) Eos # (Auto) Baso # (Auto) Sodium Potassium Chloride Carbon Dioxide BUN Creatinine Estimated GFR BUN/Creatinine Ratio Glucose Calcium Total Bilirubin AST ALT Alkaline Phosphatase Total Protein Albumin Globulin Albumin/Globulin Ratio SARS-CoV-2 (PCR) Negative CT scan from today is independently interpreted. There appears to be a fluid collection overlying the metacarpal of the index finger on the non dominant right hand. Assessment & Plan Assessment & Plan narrative: The patient is a 75-year-old insulin-dependent diabetic with a history of heroin abuse. He has a abscess in the dorsum of his non dominant right hand. The patient reports this came on spontaneously after he had an abscess in his antecubital fossa on the right. He returns to the hospital with worsening and will undergo incision and drainage. The risks benefits and alternatives of that surgery were discussed with him. He has agreed to proceed. Risks discussed included but were not limited to: Failure to improve, recurrent infection, tendon damage, nerve damage, stiffness, and anesthesia complications such as stroke, heart attack permanent paralysis and . He will likely be maintained in the hospital overnight and dressing changes initiated here. He will be discharged home on dressing changes. There will be no delayed primary closure. COVID-19 COVID-19 status: Negative Result date/Date tested (Pos, Neg/Pending): 11/06/21 Time Spent With Patient Critical Care time: I spent a total of [] minutes of critical care time on this patient's care today; this time is exclusive of procedural time.
[2021-11-06] MEDS: INSULIN LISPRO 100 UNIT/ML 3ML VIAL 20 UNIT SUBCUT (14:49)
[2021-11-06] MEDS: LACTATED RINGERS 1,000 ML 42 ML IV (14:50)
[2021-11-06] MEDS: PANTOPRAZOLE 40 MG VIAL IV (14:52)
[2021-11-06] MEDS: METOPROLOL TARTRATE 5 MG/5 ML INJ IV (15:09)
--- NOTE | 2021-11-06 15:18 | SUR.OPER ---
Supine on padded OR bed, head on pillow, Left arm secured on padded arm boards at <90 degrees abduction, Right arm on padded arm extention board and in control of the Surgeon. Legs uncrossed, safety belt at thigh, tape over blanket over lower legs.
--- NOTE | 2021-11-06 15:42 | P.DS_ITS ---
History of Present Illness History of Present Illness Chief complaint: rt hand pain/cellulitis x7 days Narrative: The patient is a 75-year-old insulin-dependent diabetic him who has atrial fibrillation and is on anticoagulation. On October 31, 2021 he reported to the emergency room with swelling in his hand and was discharged on oral antibiotics. He was subsequently admitted to the hospital on the 02 of November. Orthopedic consultation was requested on 11/03 and the patient was seen and felt to have cellulitis which was responding well to IV antibiotics in the hospital. He was discharged to home on 11/05/2021. He subsequently experienced worsening return to the emergency room on the morning of 11/06/2021. A CT scan was obtained which showed a localized dorsal abscess in the hand. He has been readmitted. This is an interim history and physical. There are no other medical changes compared to the history and physical was obtained on November 03. Discharge Providers Provider Date of admission: 11/06/21 08:06 Primary care physician: Pb Montero MD Consults: 11/06/21 03:37 Consult After Hours PICC Line RN Stat Comment: Discharge provider: Varghese Guevara MD Exam Vital Signs (past 8 hours): - 11/06/21 09:34 11/06/21 09:36 11/06/21 10:11 Temperature 98.5 F Pulse Rate 88 105 H 88 Respiratory Rate 18 18 Blood Pressure 137/78 156/70 H Pulse Oximetry 96 96 95 11/06/21 13:02 11/06/21 14:07 Temperature 98.0 F 98.8 F Pulse Rate 96 H 100 H Respiratory Rate 16 18 Blood Pressure 137/64 132/61 Pulse Oximetry 97 96 Oxygen Delivery Method Room Air Oxygen Flow Rate 0 Objective Labs Result Diagrams: 11/06/21 06:15 11/06/21 06:15 Labs: Laboratory Results - last 24 hr 11/06/21 11/06/21 11/06/21 06:15 06:15 09:34 WBC 9.1 RBC 4.48 L Hgb 12.4 L Hct 37.0 L MCV 82.5 MCH 27.7 MCHC 33.5 RDW 13.4 Plt Count 220 Neut % (Auto) 72.5 Lymph % (Auto) 15.8 L [place] % (Auto) 7.4 Eos % (Auto) 3.4 Baso % (Auto) 0.9 Neut # (Auto) 6600 Lymph # (Auto) 1400 [place] # (Auto) 700 Eos # (Auto) 300 Baso # (Auto) 100 Sodium 134 L Potassium 4.4 Chloride 103 Carbon Dioxide 28 BUN 19 Creatinine 0.87 Estimated GFR > 60.0 BUN/Creatinine Ratio 21.8 Glucose 314 H D Calcium 9.0 Total Bilirubin 0.5 AST 19 ALT 13 Alkaline Phosphatase 93 Total Protein 6.3 Albumin 3.3 L Globulin 3.0 Albumin/Globulin Ratio 1.1 SARS-CoV-2 (PCR) Negative 11/06/21 09:38 WBC RBC Hgb Hct MCV MCH MCHC RDW Plt Count Neut % (Auto) Lymph % (Auto) [place] % (Auto) Eos % (Auto) Baso % (Auto) Neut # (Auto) Lymph # (Auto) [place] # (Auto) Eos # (Auto) Baso # (Auto) Sodium Potassium Chloride Carbon Dioxide BUN Creatinine Estimated GFR BUN/Creatinine Ratio Glucose Calcium Total Bilirubin AST ALT Alkaline Phosphatase Total Protein Albumin Globulin Albumin/Globulin Ratio SARS-CoV-2 (PCR) Negative [facility] Medical History Atrial fibrillation (Unknown) Carotid artery disease (Unknown) Coronary artery disease (Unknown) Diabetes (Unknown) Diabetes, type 1.5, uncontrolled, managed as type 2 Erectile dysfunction (Unknown) GERD (gastroesophageal reflux disease) (Unknown) Hepatitis C (Unknown) Hx of drug abuse Hyperlipemia (Unknown) Hypertension (Unknown) Hypothyroidism (Unknown) Measles (Unknown) Myocardial infarct (10/17/06) Obstructive sleep apnea (Unknown) Peripheral vascular disease (Unknown) Sacral back pain Surgical History History of open reduction and internal fixation (ORIF) procedure (09/2010) History of penile implant Hx of cataract surgery (~2004) Hx of coronary artery bypass surgery (10/2006) S/P bilateral below knee amputation (Unknown) Family History Father Age: 86 Heart disease ETOH abuse Mother Age: 94 Heart disease Alzheimer's dementia without behavioral disturbance, Alzheimer's disease of unspecified onset Social History household members: spouse Smoking Status: Never smoker alcohol intake: never substance use type: does not use Discharge Plan Discharge Plan Patient Disposition: Home Discharge orders & Medications Prescriptions: No Action metoprolol tartrate 100 mg tablet See Rx Instructions .ROUTE .COMPLEX Qty: 180 3RF Dose Instruction: take 1 tablet by mouth twice a day Rx Instructions: 100 BID furosemide 20 mg tablet 20 mg PO QDAY Qty: 90 3RF losartan 25 mg tablet 25 mg PO DAILY Qty: 90 3RF pantoprazole 40 mg tablet,delayed release (DR/EC) 40 mg PO DAILY Qty: 90 1RF Hold Instructions: taper with omeprazole (DME) Syringes: 1cc Insulin Syringes with [place] 0 .Route .MEDSUPPLY Qty: 100 3RF Dose Instruction: As directed Rx Instructions: Use 1 syringe with 30x12.7 mm needle to inject insulin four times daily. apixaban 5 mg tablet 5 mg PO DAILY 0RF (DME) Liners, suspension sleeves, and socks See Rx Instructions .Route .MEDSUPPLY Qty: 1 0RF Rx Instructions: As directed levothyroxine 175 mcg tablet 175 mcg PO DAILY Qty: 90 3RF (DME) Glucose: Test Strips See Rx Instructions .Route .MEDSUPPLY Qty: 250 6RF Dose Instruction: QID; Rx Instructions: Test blood sugar four times a day or as directed by rosuvastatin 20 mg tablet 20 mg PO BEDTIME Qty: 90 3RF tamsulosin 0.4 mg capsule 0.4 mg PO BEDTIME Qty: 90 3RF aspirin 81 mg tablet,delayed release (DR/EC) 2 tab PO DAILY 0RF methocarbamol 500 mg Tablet 500 mg PO TID Qty: 90 0RF Humulin 70/30 U-100 Insulin 100 unit/mL (70-30) Suspension 40 unit SUBCUT BIDAC Qty: 20 0RF gabapentin [Neurontin] 300 mg Capsule 300 mg PO TID Qty: 90 0RF Bacid 1 billion cell- 250 mg Tablet 1 ea PO BID Qty: 120 0RF oxycodone 5 mg Tablet 10 mg PO Q3HR PRN (Reason: Pain, Severe (7-10)) Qty: 12 0RF tramadol 100 mg tablet 100 mg PO Q4-6H PRN (Reason: pain) Qty: 30 0RF Rx Instructions: DNExceed 4 doses/24h doxycycline hyclate 100 mg tablet 100 mg PO BID 10 Days Qty: 20 0RF cefdinir 300 mg capsule 300 mg PO Q12H 10 Days Qty: 20 0RF dexamethasone 4 mg tablet 4 mg PO DIRECTED Qty: 10 0RF Rx Instructions: 4 MG PO BID X 2 DAYS 4MG DAILY X 2 DAYS 2 MG DAILY X 2 DAYS THEN STOP Follow up/Referrals: Pb Montero MD [Primary Care Provider] - Discharge Data Primary Care Provider: Pb Montero Attending Provider: Varghese Guevara
--- NOTE | 2021-11-06 15:43 | PM.OP.1 ---
Operative Date/Time/Diagnoses Date of procedure: 11/06/21 Time of procedure: 15:43 Pre-op diagnosis: Right hand abscess Post-op diagnosis: same Procedure & Clinicians Procedure: Incision and drainage of right hand abscess Same procedure as scheduled: Yes Indications: The patient is a 75-year-old gentleman who was being treated for a cellulitis of his right hand with initial improvement. He went home from the hospital yesterday but returned this morning with worsening hand symptoms and a CT scan appeared to show a soft tissue abscess. He has agreed to drainage after discussion the risks benefits and alternatives. Surgeon: Varghese Guevara Click Yes if Unassisted: Yes Anesthesia Type: Sedation Operative Notes Findings: Abscess tracking between the index and long finger metacarpals. Closure Type: primary Specimen(s): other (Two swabs were sent for culture) Prosthetic devices, grafts, tissues, transplants, or devices: None Applied: drain(s) (Sam drain) Estimated Blood Loss (mL): 10 Blood products transfused: none Tourniquet time (min): 19 Procedure in detail: The patient was seen in the preoperative area where he identified his right hand as the operative site. He was taken to the operating room and placed on the operating room table in the supine position. He received mild sedation allowing a tourniquet to be placed about his proximal right arm. His right arm was prepared with ChloraPrep and draped through sterile drapes. A time-out was performed before incision. No IV antibiotics were given immediately prior to the incision in order to avoid interfering with cultures. The arm was elevated for 1 minute above the level of his heart and the tourniquet inflated to 250 mmHg. An approximately 2.5 cm incision was created in line with the maximal amount of induration overlying the 2nd metacarpal. Initially there was minimal purulence. The fascia overlying the interosseous muscles was opened and purulent fluid returned. Scissors were used to spread in this region and additional purulence returned. This area was copiously irrigated using sterile saline with an 14 gauge Angiocath and a syringe. All purulent fluid was irrigated out of the wound. A [place] drain was placed into the abscess cavity and brought out through the incision. Incision was closed with horizontal mattress sutures of 4-0 nylon. Dressings of a drain sponge followed by multiple 4x4s, and a 3 in [place] wrap were applied. The tourniquet was deflated during dressing placement. The patient was taken to the recovery room in good condition having tolerated the procedure well. Complications: none Post-operative Condition: stable Disposition: PACU Plan for aftercare: Patient will be maintained in the hospital with the current dressing in place for 2 days receiving IV antibiotics. The dressing will then be removed and the wound inspected. If his hand has improved he will then be discharged home on oral antibiotics. If not, a repeat incision and drainage may be necessary. A medical consultation will be obtained due to the patient's brittle diabetes and cardiac issues.
[2021-11-06] MEDS: INSULIN LISPRO 100 UNIT/ML 3ML VIAL 10 UNIT SUBCUT (15:50)
[2021-11-06] MEDS: OXYCODONE IR 5 MG TABLET 10 MG PO (16:02)
[2021-11-06] MEDS: LACTATED RINGERS 1,000 ML 125 ML IV (16:45)
--- NOTE | 2021-11-06 16:47 | P.CONS_ITS ---
History of Present Illness Consult details Date Patient Seen: 11/06/21 Chief complaint: rt hand pain/cellulitis x7 days Narrative: THIS IS A VERY PLEASANT 75-YEAR-OLD MALE WITH A PAST MEDICAL HISTORY SIGNIFICANT FOR DIABETES WITH MULTIPLE COMPLICATIONS. PATIENT HAS A BILATERAL LOWER EXTREMITY AMPUTATION BELOW THE KNEE. HE WAS ADMITTED TO THE HOSPITAL A FEW DAYS AGO AND TREATED FOR CELLULITIS OF THE RIGHT HAND. AT THAT TIME HE WAS NOT SUSPECTED TO BE AN ABSCESS AND WAS DISCHARGED ON ORAL ANTIBIOTICS HOWEVER HE RETURNED TODAY TO THE HOSPITAL WITH PERSISTENT SWELLING TO THE RIGHT HAND. A REPEAT CT SCAN SHOWED EVIDENCE OF AN ABSCESS AND PATIENT WAS REFERRED ONCE AGAIN TO ORTHOPEDIC SURGERY. HE WAS TAKEN TO OR AND AN I&D WAS PERFORMED. DRAIN LEFT IN PLACE AT THIS TIME PER OR REPORT. WE ARE CONSULTED DUE TO UNCONTROLLED DIABETES AND OTHER MEDICAL MANAGEMENT Meds Home Medications and Allergies Home Medications Medication Instructions Recorded Confirmed Type aspirin 81 mg tablet,delayed 2 tab PO DAILY 09/16/18 11/06/21 History release metoprolol tartrate 100 mg tablet See Rx Instructions .ROUTE 10/16/20 11/06/21 Rx .COMPLEX #180 tablet furosemide 20 mg tablet 20 mg PO QDAY #90 tab 10/20/20 11/06/21 Rx losartan 25 mg tablet 25 mg PO DAILY #90 tab 10/20/20 11/06/21 Rx pantoprazole 40 mg tablet,delayed 40 mg PO DAILY #90 tab 02/01/21 11/06/21 Rx release Syringes: 1cc Insulin Syringes #100 each 04/02/21 11/04/21 Rx with [place] apixaban 5 mg tablet 5 mg PO DAILY tab 08/22/21 11/06/21 History Liners, suspension sleeves, and #1 ea 09/11/21 11/04/21 Rx socks levothyroxine 175 mcg tablet 175 mcg PO DAILY #90 tab 10/01/21 11/06/21 Rx tamsulosin 0.4 mg capsule 0.4 mg PO BEDTIME #90 cap 10/01/21 11/06/21 Rx Glucose: Test Strips #250 ea 10/03/21 11/04/21 Rx rosuvastatin 20 mg tablet 20 mg PO BEDTIME #90 tab 10/12/21 11/06/21 Rx L.acidophilus-L.bulgar-B.bifid-S.thermoph 1 ea PO BID #120 tab 11/05/21 11/06/21 Rx 1 billion cell-250 mg tablet (Bacid) cefdinir 300 mg capsule 300 mg PO Q12H 10 Days #20 cap 11/05/21 Rx dexamethasone 4 mg tablet 4 mg PO DIRECTED #10 tab 11/05/21 Rx doxycycline hyclate 100 mg tablet 100 mg PO BID 10 Days #20 tab 11/05/21 Rx gabapentin 300 mg capsule 300 mg PO TID #90 cap 11/05/21 11/06/21 Rx (Neurontin) insulin human U-100 NPH-regulr 40 unit (0.4 mL) SUBCUT BIDAC #20 11/05/21 11/06/21 Rx 70-30 mix 100 unit/mL subcutaneous ml susp (Humulin 70/30 U-100 Insulin) methocarbamol 500 mg tablet 500 mg PO TID #90 tab 11/05/21 Rx oxycodone 5 mg tablet 10 mg PO Q3HR PRN #12 tab 11/05/21 11/06/21 Rx tramadol 100 mg tablet 100 mg PO Q4-6H PRN #30 tab 11/05/21 Rx Allergies Allergy/AdvReac Type Severity Reaction Status Date / Time adhesive tape [ADHESIVE TAPE] AdvReac Mild PATIENT Verified 09/10/21 17:57 STATES IT PEELS HIS SKIN OFF lisinopril [LISINOPRIL] AdvReac Mild COUGH Verified 09/10/21 17:57 prochlorperazine AdvReac Unknown Verified 09/10/21 17:57 [PROCHLORPERAZINE] shellfish derived AdvReac Unknown Verified 09/10/21 17:57 [SHELLFISH DERIVED] Review of Systems Review of Systems Narrative: NEGATIVE UNLESS STATED ABOVE IN HPI Exam Vital Signs (past 8 hours): - 11/06/21 09:34 11/06/21 09:36 11/06/21 10:11 Temperature 98.5 F Pulse Rate 88 105 H 88 Respiratory Rate 18 18 Blood Pressure 137/78 156/70 H Pulse Oximetry 96 96 95 11/06/21 13:02 11/06/21 14:07 11/06/21 15:35 Temperature 98.0 F 98.8 F 97.4 F L Pulse Rate 96 H 100 H 86 Respiratory Rate 16 18 12 Blood Pressure 137/64 132/61 147/71 H Pulse Oximetry 97 96 91 11/06/21 15:40 11/06/21 15:45 11/06/21 15:50 Temperature 97.4 F L Pulse Rate 95 H 89 97 H Respiratory Rate 13 12 17 Blood Pressure 161/59 H 156/61 H 143/71 H Pulse Oximetry 94 92 95 11/06/21 16:05 11/06/21 16:15 Temperature 97 F L 97.2 F L Pulse Rate 97 H 90 Respiratory Rate 14 12 Blood Pressure 135/84 143/72 H Pulse Oximetry 98 96 Oxygen Delivery Method Room Air Oxygen Flow Rate 0 Narrative Exam Narrative: . OBESE BUTNO ACUTE DISTRESS.? PATIENT IS ALERT ORIENTED X3. HEAD ATRAUMATIC NORMOCEPHALIC NECK : SUPPLE WITHOUT ADENOPATHY NO CAROTID BRUITS EYE:? EOMI, PERRLA, NORMAL CONJUNCTIVA; NO JAUNDICE CHEST:? REGULAR RATE.? ? NO RUBS.? PMI IS NON DISPLACED.? NO MURMURS; NORMAL S1- S2 PULMONARY:? DECREASED BS OVER THE BASES.? MILD BIBASILAR CRACKLES NOTED; NO INCREASED DULLNESS TO PERCUSSION ABDOMEN:? OBESE BUT SOFT.? NONTENDER.? NONDISTENDED.? BOWEL SOUNDS ARE PRESENT IN ALL 4 QUADRANTS.? NO MASS. EXTREMITIES:? DRESSING APPRECIATED TO THE RIGHT UPPER HAND. SANGUINOUS DRAINAGE IS APPRECIATED. SENSATION IS INTACT NEURO:? CRANIAL NERVES 2-12 GROSSLY INTACT. NO FOCAL NEUROLOGICAL DEFICIT NOTED. MSK:? BILATERAL BKA. PATIENT WEARS PROSTHESIS BILATERALLY. SKIN:? FAIR SKIN TURGOR FOR AGE. :? NORMAL EXTERNAL GENITALIA. PSYCH :? APPROPRIATE MOOD AND AFFECT.? ALERT AWAKE ORIENTED X3 Objective Labs Result Diagrams: 11/06/21 06:15 11/06/21 06:15 Labs: Laboratory Results - last 24 hr 11/06/21 11/06/21 11/06/21 06:15 06:15 09:34 WBC 9.1 RBC 4.48 L Hgb 12.4 L Hct 37.0 L MCV 82.5 MCH 27.7 MCHC 33.5 RDW 13.4 Plt Count 220 Neut % (Auto) 72.5 Lymph % (Auto) 15.8 L [place] % (Auto) 7.4 Eos % (Auto) 3.4 Baso % (Auto) 0.9 Neut # (Auto) 6600 Lymph # (Auto) 1400 [place] # (Auto) 700 Eos # (Auto) 300 Baso # (Auto) 100 Sodium 134 L Potassium 4.4 Chloride 103 Carbon Dioxide 28 BUN 19 Creatinine 0.87 Estimated GFR > 60.0 BUN/Creatinine Ratio 21.8 Glucose 314 H D Calcium 9.0 Total Bilirubin 0.5 AST 19 ALT 13 Alkaline Phosphatase 93 Total Protein 6.3 Albumin 3.3 L Globulin 3.0 Albumin/Globulin Ratio 1.1 SARS-CoV-2 (PCR) Negative 11/06/21 09:38 WBC RBC Hgb Hct MCV MCH MCHC RDW Plt Count Neut % (Auto) Lymph % (Auto) [place] % (Auto) Eos % (Auto) Baso % (Auto) Neut # (Auto) Lymph # (Auto) [place] # (Auto) Eos # (Auto) Baso # (Auto) Sodium Potassium Chloride Carbon Dioxide BUN Creatinine Estimated GFR BUN/Creatinine Ratio Glucose Calcium Total Bilirubin AST ALT Alkaline Phosphatase Total Protein Albumin Globulin Albumin/Globulin Ratio SARS-CoV-2 (PCR) Negative [facility] Medical History Atrial fibrillation (Unknown) Carotid artery disease (Unknown) Coronary artery disease (Unknown) Diabetes (Unknown) Diabetes, type 1.5, uncontrolled, managed as type 2 Erectile dysfunction (Unknown) GERD (gastroesophageal reflux disease) (Unknown) Hepatitis C (Unknown) Hx of drug abuse Hyperlipemia (Unknown) Hypertension (Unknown) Hypothyroidism (Unknown) Measles (Unknown) Myocardial infarct (10/17/06) Obstructive sleep apnea (Unknown) Peripheral vascular disease (Unknown) Sacral back pain Surgical History History of open reduction and internal fixation (ORIF) procedure (09/2010) History of penile implant Hx of cataract surgery (~2004) Hx of coronary artery bypass surgery (10/2006) S/P bilateral below knee amputation (Unknown) Family History Father Age: 86 Heart disease ETOH abuse Mother Age: 94 Heart disease Alzheimer's dementia without behavioral disturbance, Alzheimer's disease of unspecified onset Social History household members: spouse Tobacco & Substance Use Smoking Status: Never smoker alcohol intake: never substance use type: does not use Assessment & Plan Assessment & Plan narrative: PROBLEM LIST RIGHT HAND CELLULITIS. STATUS POST I&D DAY # 0. SURGERY IS ON BOARD UNCONTROLLED DIABETES. INSULIN DEPENDENT. CAD PER HISTORY. CABG REPORTED HYPOTHYROIDISM PER HISTORY GERD PER HISTORY HYPERTENSION PER HISTORY PLAN WILL SWITCH PATIENT FROM NPH TO LANTUS FOR STRICTER BS CONTROL CONTINUE SLIDING SCALE AT MEDIUM DOSE LOW CARB DIET MONITOR CLOSELY FOR ANY SIGNS OF COMPLICATION POSTOPERATIVELY WILL DEFER ANTIBIOTIC THERAPY TO THE SURGICAL TEAM DRESSING CHANGE ALSO BE DEFERRED TO THE SURGICAL TEAM. FOLLOW CULTURES CLOSELY ADJUSTMENT TO ANTIBIOTIC SHOULD REFLECT CULTURE RESULTS WITH SENSITIVITY REPORT CONTINUE HOME MED INDICATED PT AND OT TO MOBILIZE TOLERATED PATIENT TO BE ABOVE WHICH MALE INCENTIVE SPIROMETER ORDERED AND PATIENT TO BE INSTRUCTED TO USE WHILE AWAKE FALL AND ASPIRATION PRECAUTIONS TO BE MAINTAINED AT ALL TIMES MONITOR SKIN CLOSELY FOR ANY SIGN OF A SKIN BREAKDOWN ADDITIONAL MANAGEMENT PER CLINICAL COURSE WE APPRECIATE THIS KIND CONSULT WE WILL GLADLY FOLLOW WITH YOU Time Spent With Patient Critical Care time: I spent a total of [] minutes of critical care time on this patient's care today; this time is exclusive of procedural time.
[2021-11-06] MEDS: HYDROMORPHONE 0.5 MG INJ 0.2 MG IV (17:25)
[2021-11-06] MEDS: ACETAMINOPHEN 325 MG TABLET 975 MG PO (21:42)
[2021-11-06] MEDS: LACTOBACILLUS ACIDOPHILUS TABLET 1 EACH PO (21:42)
[2021-11-06] MEDS: GABAPENTIN 300 MG CAPSULE PO (21:42)
[2021-11-06] MEDS: ATORVASTATIN 20 MG TABLET 40 MG PO (21:42)
[2021-11-06] MEDS: METOPROLOL IR 50 MG TABLET 100 MG PO (21:42)
[2021-11-06] MEDS: TAMSULOSIN 0.4 MG CAPSULE PO (21:42)
[2021-11-06] MEDS: INSULIN GLARGINE 100 UNIT/ML 3ML PEN 25 UNIT SUBCUT (21:52)
[2021-11-06] MEDS: CEFAZOLIN 2 GM/20 ML SYRINGE IV (23:37)
[2021-11-07] VITALS (7 sets, daily range): BP systolic 118–165; BP diastolic 28–68; PULSE 88–90; RESP 16–18; TEMP 36.7–37.1; O2SAT 94–97
[2021-11-07] MEDS: LACTATED RINGERS 1,000 ML 125 ML IV (00:55)
[2021-11-07] MEDS: OXYCODONE IR 10 MG TABLET PO ×3 (00:55→16:01)
[2021-11-07] MEDS: LEVOTHYROXINE 100 MCG TABLET PO (05:28)
[2021-11-07] MEDS: LEVOTHYROXINE 75 MCG TABLET PO (05:28)
[2021-11-07] MEDS: CEFAZOLIN 2 GM/20 ML SYRINGE IV ×3 (05:55→22:34)
[2021-11-07 06:20] LABS: Hematocrit 37.4 % (41-53); Hemoglobin 12.7 g/dL (13.5-17.5); Mean Corpuscular HGB Conc 33.9 % (30-36); Mean Corpuscular Volume 82.6 fL (80-100); Platelet Count 227 X10^3/uL (150-400); Red Blood Cell Count 4.53 X10^6/uL (4.5-5.9); Red Cell Distribution Width 13.5 % (11.6-14.8)
[2021-11-07 06:39] LABS: Alanine Aminotransferase 12 IU/L (<50); Albumin 3.3 g/dL (3.5-5.0); Alkaline Phosphatase 92 U/L (38-126); Aspartate Aminotransferase 17 IU/L (17-59); BUN Creatinine Ratio 16.2 (6-22); Bilirubin Total 0.7 mg/dL (0.2-1.3); Blood Urea Nitrogen 12 mg/dL (9-20); Calcium 9.2 mg/dL (8.4-10.2); Carbon Dioxide 29 mmol/L (22-32); Chloride 101 mmol/L (98-107); Estimated Glomerular Filt Rate > 60.0 mL/min (>60); Globulin 3.2 g/dL (1.7-4.1); Glucose 282 mg/dL (80-110); HEMOLYSIS < 15 (0-50); Magnesium 1.5 mg/dL (1.6-2.3); Phosphorous 2.9 mg/dL (2.3-3.7); Potassium 4.4 mmol/L (3.4-5.1); Sodium 133 mmol/L (137-145); Total Protein 6.5 g/dL (6.3-8.2)
[2021-11-07] MEDS: ACETAMINOPHEN 325 MG TABLET 975 MG PO ×3 (10:09→21:02)
[2021-11-07] MEDS: polyethylene glycoL 3350 17 GM POWD.PACK PO (10:12)
[2021-11-07] MEDS: ASPIRIN EC 81 MG TABLET 162 MG PO (10:16)
[2021-11-07] MEDS: PANTOPRAZOLE DR 40 MG TABLET PO (10:17)
[2021-11-07] MEDS: FUROSEMIDE 20 MG TABLET PO (10:17)
[2021-11-07] MEDS: LOSARTAN 25 MG TABLET PO (10:18)
--- NOTE | 2021-11-07 10:29 | PC.NURSE ---
AM shift Pt is reporting some dizziness, BP slightly elevated. Using PO oxycodone for pain control. Medicated. Prosthetic legs x2, Pt reports ambulation in room without dizziness most of the stay, this AM just a bit dizzy. Enc PO fluid. Prune juice and Miralax this AM. Reporting some constipation, reports this is baseline with hx of IV drug use. cooperative and talkative.
[2021-11-07] MEDS: INSULIN GLARGINE 100 UNIT/ML 3ML PEN 25 UNIT SUBCUT (10:40)
[2021-11-07] MEDS: LACTOBACILLUS ACIDOPHILUS TABLET 1 EACH PO ×2 (10:45→21:02)
--- NOTE | 2021-11-07 10:53 | P.PN_ITS ---
Subjective Subjective Date Patient Seen: 11/07/21 Interval history: PATIENT READMITTED WITH CELLULITIS OF THE DORSUM OF THE RIGHT HAND. STATUS POST I&D DAY 1 ON CEFAZOLIN TODAY PATIENT DID NOT HAVE ANY SIGNIFICANT COMPLAINTS HE DOES CONTINUE TO HAVE SOME DISCOMFORT TO THE RIGHT HAND EXPECTED PAIN MEDICATION IS WORKING FAIRLY WELL FOR HIM HE STATED DENIED ANY FEVER OR CHILLS OVERNIGHT NO INCREASING SHORTNESS OF BREATH Exam Vital Signs (past 8 hours): - 11/07/21 04:00 11/07/21 07:14 Temperature 98.4 F 98.1 F Pulse Rate 89 89 Respiratory Rate 18 16 Blood Pressure 160/46 H 131/55 L Pulse Oximetry 96 97 Oxygen Delivery Method Nasal Cannula Oxygen Flow Rate 0 Narrative Exam Narrative: NO ACUTE DISTRESS.? PATIENT IS ALERT ORIENTED X3. HEAD ATRAUMATIC NORMOCEPHALIC NECK : SUPPLE WITHOUT ADENOPATHY NO CAROTID BRUITS EYE:? EOMI, PERRLA, NORMAL CONJUNCTIVA; NO JAUNDICE CHEST:? REGULAR RATE.? ? NO RUBS.? PMI IS NON DISPLACED.? NO MURMURS; NORMAL S1- S2 PULMONARY:? DECREASED BS OVER THE BASES.? MILD BIBASILAR CRACKLES NOTED; NO INCR EASED DULLNESS TO PERCUSSION ABDOMEN:? OBESE BUT SOFT.? NONTENDER.? NONDISTENDED.? BOWEL SOUNDS ARE PRESENT IN ALL 4 QUADRANTS.? NO MASS. EXTREMITIES:? DRESSING APPRECIATED TO THE RIGHT UPPER HAND.? SANGUINOUS DRAINAGE IS APPRECIATED.? SENSATION IS INTACT NEURO:? CRANIAL NERVES 2-12 GROSSLY INTACT. NO FOCAL NEUROLOGICAL DEFICIT NOTED. MSK:? BILATERAL BKA.? PATIENT WEARS PROSTHESIS BILATERALLY. SKIN:? FAIR SKIN TURGOR FOR AGE. :? NORMAL EXTERNAL GENITALIA. PSYCH :? APPROPRIATE MOOD AND AFFECT.? ALERT AWAKE ORIENTED X3 Objective Labs Result Diagrams: 11/07/21 06:00 11/07/21 06:00 Labs: Laboratory Results - last 24 hr 11/07/21 11/07/21 06:00 06:00 WBC 10.0 RBC 4.53 Hgb 12.7 L Hct 37.4 L MCV 82.6 MCH 28.0 MCHC 33.9 RDW 13.5 Plt Count 227 Sodium 133 L Potassium 4.4 Chloride 101 Carbon Dioxide 29 BUN 12 Creatinine 0.74 Estimated GFR > 60.0 BUN/Creatinine Ratio 16.2 Glucose 282 H Calcium 9.2 Phosphorus 2.9 Magnesium 1.5 L Total Bilirubin 0.7 AST 17 ALT 12 Alkaline Phosphatase 92 Total Protein 6.5 Albumin 3.3 L Globulin 3.2 Albumin/Globulin Ratio 1.0 PFSH Medical History Atrial fibrillation (Unknown) Carotid artery disease (Unknown) Coronary artery disease (Unknown) Diabetes (Unknown) Diabetes, type 1.5, uncontrolled, managed as type 2 Erectile dysfunction (Unknown) GERD (gastroesophageal reflux disease) (Unknown) Hepatitis C (Unknown) Hx of drug abuse Hyperlipemia (Unknown) Hypertension (Unknown) Hypothyroidism (Unknown) Measles (Unknown) Myocardial infarct (10/17/06) Obstructive sleep apnea (Unknown) Peripheral vascular disease (Unknown) Sacral back pain Surgical History History of open reduction and internal fixation (ORIF) procedure (09/2010) History of penile implant Hx of cataract surgery (~2004) Hx of coronary artery bypass surgery (10/2006) S/P bilateral below knee amputation (Unknown) Family History Father Age: 86 Heart disease ETOH abuse Mother Age: 94 Heart disease Alzheimer's dementia without behavioral disturbance, Alzheimer's disease of unspecified onset Social History household members: spouse Smoking Status: Never smoker alcohol intake: never substance use type: does not use Assessment & Plan Assessment & Plan narrative: PROBLEM LIST RIGHT HAND CELLULITIS.? STATUS POST I&D DAY # 1.? SURGERY MANAGING UNCONTROLLED DIABETES.? INSULIN DEPENDENT. STARTED ON LANTUS CAD PER HISTORY.? CABG REPORTED HYPOTHYROIDISM PER HISTORY GERD PER HISTORY HYPERTENSION PER HISTORY PLAN 11/07 STARTED PATIENT ON LANTUS FOR STRICTER BLOOD SUGAR CONTROL CONTINUE SLIDING SCALE FOR NOW LOW CARB DIET ORDERED PATIENT IS ON CEFAZOLIN PER HEPATIC SURGERY PRIOR CULTURE GROWING STREP VIRIDANS AWAITING FOLLOW-UP RESULTS FROM CULTURES TAKEN IN THE 0R DURING HIS PROCEDURE ADDITIONAL MANAGEMENT PER CLINICAL COURSE WILL CONTINUE TO FOLLOW WITH YOU 11/06 WILL SWITCH PATIENT FROM NPH TO LANTUS FOR STRICTER? BS CONTROL CONTINUE SLIDING SCALE AT MEDIUM DOSE LOW CARB DIET MONITOR CLOSELY FOR ANY SIGNS OF COMPLICATION POSTOPERATIVELY WILL DEFER ANTIBIOTIC THERAPY TO THE SURGICAL TEAM DRESSING CHANGE ALSO BE DEFERRED TO THE SURGICAL TEAM. FOLLOW CULTURES CLOSELY ADJUSTMENT TO ANTIBIOTIC SHOULD REFLECT CULTURE RESULTS WITH SENSITIVITY REPORT CONTINUE HOME MED INDICATED PT AND OT TO MOBILIZE TOLERATED PATIENT TO BE ABOVE WHICH MALE INCENTIVE SPIROMETER ORDERED AND PATIENT TO BE INSTRUCTED TO USE WHILE AWAKE FALL AND ASPIRATION PRECAUTIONS TO BE MAINTAINED AT ALL TIMES MONITOR SKIN CLOSELY FOR ANY SIGN OF A SKIN BREAKDOWN ADDITIONAL MANAGEMENT PER CLINICAL COURSE WE APPRECIATE THIS KIND CONSULT WE WILL GLADLY FOLLOW WITH YOU Time Spent With Patient Critical Care time: I spent a total of [] minutes of critical care time on this patient's care today; this time is exclusive of procedural time.
[2021-11-07] MEDS: MAGNESIUM CHLORIDE 64 MG TABLET 128 MG PO (10:56)
[2021-11-07] MEDS: INSULIN LISPRO 100 UNIT/ML 3ML VIAL SUBCUT ×3 (10:58→17:40)
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
--- NOTE | 2021-11-07 13:10 | PT.IIE ---
Surgery Performed Operation Date: 11/06/21 14:45 Actual Procedures p I&D of hand dorsal abscess(Right) - Varghese Guevara MD Medical History (Last Reviewed 11/06/21 @ 04:31 by Kierra Mora DO) Atrial fibrillation (Unknown) Carotid artery disease (Unknown) Coronary artery disease (Unknown) Diabetes (Unknown) Diabetes, type 1.5, uncontrolled, managed as type 2 Erectile dysfunction (Unknown) GERD (gastroesophageal reflux disease) (Unknown) Hepatitis C (Unknown) Hx of drug abuse Hyperlipemia (Unknown) Hypertension (Unknown) Hypothyroidism (Unknown) Measles (Unknown) Myocardial infarct (10/17/06) Obstructive sleep apnea (Unknown) Peripheral vascular disease (Unknown) Sacral back pain Physical Therapy Inpatient Evaluation/Re-Eval M1 PT/OT-IP Prior Functional Status Start: 11/07/21 16:41 Freq: NEEDED Status: Active Protocol: Document 11/07/21 13:10 AB (Rec: 11/07/21 16:53 AB [email or web address]) Medical Review Prior Functional Status Medical History Reviewed Yes Communication able to make needs known Mobility and Gait pt stated that he is modified independent with all mobilities and ambulation using FWW but able to ambulate without AD short distances Prior Functional Level (Other details) Pt has B BKA with prosthesis Social History Household Members spouse Living Arrangements House Number of Floors (Floors) One Floor Number of Stairs To Enter/Railing? 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 Current Condition Start: 11/07/21 16:41 Freq: NEEDED Status: Active Protocol: Document 11/07/21 13:10 AB (Rec: 11/07/21 16:53 AB [email or web address]) Physical Therapy Current Condition Current Condition Evaluation Date 11/07/21 Treatment Diagnosis RUE cellulitis s/p I&D; difficulty in walking Onset Date 11/06/21 M3 PT-IP Subjective Start: 11/07/21 16:41 Freq: NEEDED Status: Active Protocol: Document 11/07/21 13:10 AB (Rec: 11/07/21 16:53 AB [email or web address]) Subjective Physical Therapy Visit Type Type Initial Evaluation Visit Start Time 13:10 Visit Stop Time 13:35 Total Visit Minutes 25 Number of CALL WORKER Visits 0 Physical Therapy Visit Comments Patient Comments agreeable to do PT Therapy Pain Assessment Pain When Pain Assessed At Rest Pain Present Pain Present Pain Reported Location Right Hand Intensity 5 Scale Used Numeric (0 - 10) Pain Management Techniques Modification of Treatment, Timing of Activity with Medications M4 PT-IP Mobility and Gait Start: 11/07/21 16:41 Freq: NEEDED Status: Active Protocol: Document 11/07/21 13:10 AB (Rec: 11/07/21 16:53 AB [email or web address]) PT-Bed Mobility Assessment Supine to Sit Supine to Sit Independent Sit to Supine Sit to Supine Independent PT-Transfer Assessment Sit to and From Stand Sit to and from Stand Independent,Use of Upper Extremities Equipment Transfer Assistive Device Gait Belt,Front Wheeled Walker Orthotic/Prosthetic Devices or Brace: Yes Comments Mobility Comments pt agreeable to do PT. completed bed mobility mod I. able to put his prosthesis by himself. sit to stand mod I and ambulated in room SBA ~ 40 ft. completed up/down platform step using FWW SBA. ambulated back in room. demonstrated ambulation without AD SBA 40 ft. pt requested to go back to bed. call light and table placed within reach. informed pt regarding mobility and safety and that no further PT intervention indicated at this time. Pt agreed. Gait Assessment Gait Gait Assistance Required: Standby Assistance Distance (Feet) 40 Able to Maintain Weight Bearing Status Yes During Gait Assistive Devices Assistive Device None,Gait Belt,Front Wheeled Walker Orthotic/Prosthetic Devices or Brace: Yes Gait Deviations General Gait Pattern Decreased Stride Length, Decreased Feet Clearance, Flexed Trunk,Wide Based Gait Factors Limiting Gait Function Factors Limiting Gait Function Decreased Activity Tolerance, Decreased Strength,Limited Range of Motion,Pain,Poor Balance,Poor Safety Awareness Stair Climbing Assessment Evaluation Level of Assist On Stairs Standby Assistance Devices Stair Climbing Assistive Devices Front Wheel Walker Technique/Endurance Stair Climbing Direction Ascend and Descend Stair Climbing Technique Step to Step Number of Steps Climbed 1 Query Text: Stair Climbing Set # Repetitions (reps) 1 PT-Balance Assessment Sitting Balance and Reactions Static Sitting Balance Ability Normal Dynamic Sitting Balance Ability Good Standing Balance and Reactions Static Standing Balance Ability Good Dynamic Standing Balance Ability Fair Device Used FWW M5 PT-IP Objective Assessments Start: 11/07/21 16:41 Freq: NEEDED Status: Active Protocol: Document 11/07/21 13:10 AB (Rec: 11/07/21 16:53 AB [email or web address]) Orientation Orientation/Cognition Level of Alertness Alert Orientation Name,Age,Birthday,Month,Date, Year,Day of Week,Place, Situation Language Function Ability No Deficits Noted Safety Awareness Understands Safety Issues Memory Description No Deficits Noted Sensation Assessment Sensation Gross Sensation WNL Muscle Tone Muscle Tone WNL Yes M6 PT-IP Treatment Start: 11/07/21 16:41 Freq: NEEDED Status: Active Protocol: Document 11/07/21 13:10 AB (Rec: 11/07/21 16:53 AB [email or web address]) Physical Therapy Treatment Education Education Provided Safety M7 PT-IP Assessment and Plan Start: 11/07/21 16:41 Freq: NEEDED Status: Active Protocol: Document 11/07/21 13:10 AB (Rec: 11/07/21 16:53 AB [email or web address]) PT Summary Assessment and Plan Potential Rehabilitation Potential Fair Status of Condition at Evaluation Stable Summary Impairments Pain,ROM,Strength,Balance, Coordination,Sensation,Tone, Cognition,Bed Mobility, Transfers,Gait,Activity Tolerance Assessment Summary PT eval completed. pt is modified independent with bed mobility and sit to stand; SBA for ambulation using FWW for safety but also able to ambulate without AD SBA. pt able to go up/down platform step using FWW SBA. pt plans to go home and has his spouse to assist him when needed. No further PT intervention indicated at this time. pt is aware and nurse informed. Frequency of Treatment Frequency Of Treatment Discharge Weight Bearing Status Weight Bearing Status Full Weight Bearing Allowed Weight Bearing Amount (enter % RUE FWB or #) (%) Recommendations To Nursing Amount of Assist Needed Standby Assistance Discharge Recommendations PT Discharge Recommendations Home Transportation Needs at Discharge Private Vehicle
--- NOTE | 2021-11-07 13:22 | PC.NURSE ---
BLOOD SUGAR FOR LUNCH 439 , INFORMED MD RECEIVED ORDER FOR ADDITIONAL ONE TIME 20 UNITS LISPRO NOW, GIVEN
[2021-11-07] MEDS: INSULIN LISPRO 100 UNIT/ML 3ML VIAL 20 UNIT SUBCUT (13:26)
--- NOTE | 2021-11-07 13:56 | P.PN_ITS ---
Subjective Subjective Date Patient Seen: 11/07/21 Time Patient Seen: 13:56 Interval history: Pain moderate. Denies fever or chills. No nausea or vomiting. Exam Vital Signs (past 8 hours): - 11/07/21 07:14 Temperature 98.1 F Pulse Rate 89 Respiratory Rate 16 Blood Pressure 131/55 L Pulse Oximetry 97 Oxygen Delivery Method Nasal Cannula Oxygen Flow Rate 0 Narrative Exam Narrative: Dressing in place. Motor functions intact distally. Good capillary refill. Objective Labs Result Diagrams: 11/07/21 06:00 11/07/21 06:00 Labs: Laboratory Results - last 24 hr 11/07/21 11/07/21 06:00 06:00 WBC 10.0 RBC 4.53 Hgb 12.7 L Hct 37.4 L MCV 82.6 MCH 28.0 MCHC 33.9 RDW 13.5 Plt Count 227 Sodium 133 L Potassium 4.4 Chloride 101 Carbon Dioxide 29 BUN 12 Creatinine 0.74 Estimated GFR > 60.0 BUN/Creatinine Ratio 16.2 Glucose 282 H Calcium 9.2 Phosphorus 2.9 Magnesium 1.5 L Total Bilirubin 0.7 AST 17 ALT 12 Alkaline Phosphatase 92 Total Protein 6.5 Albumin 3.3 L Globulin 3.2 Albumin/Globulin Ratio 1.0 Preliminary culture results show no growth, Gram stain few white blood cells 1+ Gram-negative rods PFSH Medical History Atrial fibrillation (Unknown) Carotid artery disease (Unknown) Coronary artery disease (Unknown) Diabetes (Unknown) Diabetes, type 1.5, uncontrolled, managed as type 2 Erectile dysfunction (Unknown) GERD (gastroesophageal reflux disease) (Unknown) Hepatitis C (Unknown) Hx of drug abuse Hyperlipemia (Unknown) Hypertension (Unknown) Hypothyroidism (Unknown) Measles (Unknown) Myocardial infarct (10/17/06) Obstructive sleep apnea (Unknown) Peripheral vascular disease (Unknown) Sacral back pain Surgical History History of open reduction and internal fixation (ORIF) procedure (09/2010) History of penile implant Hx of cataract surgery (~2004) Hx of coronary artery bypass surgery (10/2006) S/P bilateral below knee amputation (Unknown) Family History Father Age: 86 Heart disease ETOH abuse Mother Age: 94 Heart disease Alzheimer's dementia without behavioral disturbance, Alzheimer's disease of unspecified onset Social History household members: spouse Smoking Status: Never smoker alcohol intake: never substance use type: does not use Assessment & Plan Post-op Postoperative Procedures: Procedures Operation Date: 11/06/21 14:45 Actual Procedure Side Surgeon p I&D of hand dorsal abscess Right Varghese Guevara MD Postoperative day: 1 Postoperative plan narrative: Per op note patient will be maintain the hospital with current dressing in place for 2 days receiving IV antibiotics. The dressi ng will be then be removed and the wound inspected. If the hand has improved he will then be discharged home on oral antibiotics. If not improved repeat incision and drainage may be necessary.
--- NOTE | 2021-11-07 14:32 | OT.IPNOTE ---
Attempted to see pt for OT eval. Pt states has no OT needs and aware to move his right hand actively. Pt states has a supportive to assist at home for all needs. Discharge OT eval orders.
[2021-11-07] MEDS: GABAPENTIN 300 MG CAPSULE PO ×2 (15:59→21:02)
[2021-11-07] MEDS: ATORVASTATIN 20 MG TABLET 40 MG PO (21:02)
[2021-11-07] MEDS: TAMSULOSIN 0.4 MG CAPSULE PO (21:02)
[2021-11-07] MEDS: APIXABAN 5 MG TABLET PO (21:02)
[2021-11-07] MEDS: METOPROLOL IR 50 MG TABLET 100 MG PO (21:03)
[2021-11-07] MEDS: INSULIN GLARGINE 100 UNIT/ML 3ML PEN 35 UNIT SUBCUT (21:04)
[2021-11-08] VITALS (7 sets, daily range): BP systolic 119–155; BP diastolic 46–110; PULSE 81–88; RESP 16–20; TEMP 36.6–37.1; O2SAT 95–96
--- NOTE | 2021-11-08 02:36 | PC.NURSE ---
BP at 183 recorded as 118/28- on checking pt at shift change when VS was initially noted, pt asymptomatic, no complaints or visible distress, BP rechecked to 141/57. At approx 193, BP checked by HEAVY EQUIPMENT MECHANIC read 120/40. Pt BP difficulty to measure d/t placement of cuff (midline JOSESITO, s/p I&D R hand)- at approx 194, BP on R arm 139/68, BP on L wrist 165/44. HR in 80s. Contacted provider Aron. Provider OK w/ only giving 50 mg of 100 mg metoprolol IR PO BID d/t low DBP. Pt tolerated well. Will continue to monitor. Emphasis on correct and best placement of automatic BP cuff provided.
[2021-11-08] MEDS: OXYCODONE IR 10 MG TABLET PO ×3 (04:03→20:57)
[2021-11-08] MEDS: LEVOTHYROXINE 100 MCG TABLET PO (05:36)
[2021-11-08] MEDS: CEFAZOLIN 2 GM/20 ML SYRINGE IV ×3 (05:36→21:02)
[2021-11-08] MEDS: LEVOTHYROXINE 75 MCG TABLET PO (05:36)
[2021-11-08 06:09] LABS: Alanine Aminotransferase 10 IU/L (<50); Albumin 3.3 g/dL (3.5-5.0); Albumin Globulin Ratio 1.1 (1.0-2.8); Alkaline Phosphatase 101 U/L (38-126); Aspartate Aminotransferase 20 IU/L (17-59); BUN Creatinine Ratio 17.5 (6-22); Bilirubin Total 0.4 mg/dL (0.2-1.3); Blood Urea Nitrogen 14 mg/dL (9-20); Carbon Dioxide 28 mmol/L (22-32); Chloride 101 mmol/L (98-107); Estimated Glomerular Filt Rate > 60.0 mL/min (>60); Globulin 2.9 g/dL (1.7-4.1); Glucose 256 mg/dL (80-110); HEMOLYSIS < 15 (0-50); Magnesium 1.6 mg/dL (1.6-2.3); Phosphorous 3.1 mg/dL (2.3-3.7); Potassium 4.4 mmol/L (3.4-5.1); Sodium 133 mmol/L (137-145); Total Protein 6.2 g/dL (6.3-8.2)
--- NOTE | 2021-11-08 06:56 | PC.NURSE ---
Pt presents w/ increasing redness on sacrum, blanchable, no breakdown of skin yet. Pt instructed to frequently change positions in bed and alleviate pressure. Pt prompted through night to change position. Barrier cream provided. Waffle cushion provided. Pt reports no relief in symptoms. Will continue to monitor for any skin breakdown or further irritation.
--- NOTE | 2021-11-08 07:52 | PM.PNPO.1 ---
Subjective Subjective Date Patient Seen: 11/08/21 Time Patient Seen: 07:52 Interval history: The patient reports his hand, hurts like hell. Exam Vital Signs (past 8 hours): - 11/08/21 04:40 Temperature 98.4 F Pulse Rate 88 Respiratory Rate 16 Blood Pressure 150/71 H Pulse Oximetry 96 Oxygen Delivery Method Nasal Cannula Oxygen Flow Rate 0 Narrative Exam Narrative: Upon removal of the dressing and removal of the drain, there is no surrounding erythema at the wound. There is no significant swelling. Objective Labs Result Diagrams: 11/07/21 06:00 11/08/21 05:35 Labs: Laboratory Results - last 24 hr 11/08/21 05:35 Sodium 133 L Potassium 4.4 Chloride 101 Carbon Dioxide 28 BUN 14 Creatinine 0.80 Estimated GFR > 60.0 BUN/Creatinine Ratio 17.5 Glucose 256 H Calcium 9.0 Phosphorus 3.1 Magnesium 1.6 Total Bilirubin 0.4 AST 20 ALT 10 Alkaline Phosphatase 101 Total Protein 6.2 L Albumin 3.3 L Globulin 2.9 Albumin/Globulin Ratio 1.1 PFSH Medical History Atrial fibrillation (Unknown) Carotid artery disease (Unknown) Coronary artery disease (Unknown) Diabetes (Unknown) Diabetes, type 1.5, uncontrolled, managed as type 2 Erectile dysfunction (Unknown) GERD (gastroesophageal reflux disease) (Unknown) Hepatitis C (Unknown) Hx of drug abuse Hyperlipemia (Unknown) Hypertension (Unknown) Hypothyroidism (Unknown) Measles (Unknown) Myocardial infarct (10/17/06) Obstructive sleep apnea (Unknown) Peripheral vascular disease (Unknown) Sacral back pain Surgical History History of open reduction and internal fixation (ORIF) procedure (09/2010) History of penile implant Hx of cataract surgery (~2004) Hx of coronary artery bypass surgery (10/2006) S/P bilateral below knee amputation (Unknown) Family History Father Age: 86 Heart disease ETOH abuse Mother Age: 94 Heart disease Alzheimer's dementia without behavioral disturbance, Alzheimer's disease of unspecified onset Social History household members: spouse Smoking Status: Never smoker alcohol intake: never substance use type: does not use Assessment & Plan Post-op Postoperative Procedures: Procedures Operation Date: 11/06/21 14:45 Actual Procedure Side Surgeon p I&D of hand dorsal abscess Right Varghese Guevara MD Postoperative day: 2 Postoperative status: doing well and marginal pain control Postoperative status narrative: The patient is 2 days status post an incision and drainage of a hand abscess on the right. After removal of the dressing and drain today it appears that he has no residual swelling and the erythema is improved as well. Postoperative plan: routine post-op care (Continue IV antibiotics) Postoperative plan narrative: I have re-dressed the hand. We will continue IV antibiotics for an additional 24 hours and observe him to make sure there is not a reaccumulation of the abscess after removal of the drain. If all goes well we should be able to discharge him tomorrow on oral antibiotics. Time Spent With Patient Time with patient: 15-24 minutes
[2021-11-08] MEDS: INSULIN LISPRO 100 UNIT/ML 3ML VIAL SUBCUT ×4 (08:35→21:00)
[2021-11-08] MEDS: INSULIN GLARGINE 100 UNIT/ML 3ML PEN 35 UNIT SUBCUT (08:36)
[2021-11-08] MEDS: GABAPENTIN 300 MG CAPSULE PO ×3 (08:50→20:58)
[2021-11-08] MEDS: APIXABAN 5 MG TABLET PO ×2 (08:50→20:58)
[2021-11-08] MEDS: METOPROLOL IR 50 MG TABLET 100 MG PO ×2 (08:50→20:58)
[2021-11-08] MEDS: ASPIRIN EC 81 MG TABLET 162 MG PO (08:50)
[2021-11-08] MEDS: ACETAMINOPHEN 325 MG TABLET 975 MG PO ×3 (08:51→20:57)
[2021-11-08] MEDS: LACTOBACILLUS ACIDOPHILUS TABLET 1 EACH PO ×2 (08:51→20:57)
[2021-11-08] MEDS: LOSARTAN 25 MG TABLET PO (08:51)
[2021-11-08] MEDS: FUROSEMIDE 20 MG TABLET PO (08:51)
[2021-11-08] MEDS: PANTOPRAZOLE DR 40 MG TABLET PO (08:51)
--- NOTE | 2021-11-08 11:26 | PM.PN.1 ---
Subjective Subjective Date Patient Seen: 11/08/21 Interval history: PATIENT READMITTED WITH CELLULITIS OF THE DORSUM OF THE RIGHT? HAND. ?STATUS POST I&D DAY 2 ?ON CEFAZOLIN ?TODAY ? NO CHEST PAIN. NO CHEST PRESSURE NO INCREASING SHORTNESS OF BREATH REPORTED DENIES ANY FEVER OR CHILLS OVERNIGHT THE PAIN IS CONTROLLED ON CURRENT MED REGIMENT NO OTHER SIGNIFICANT ISSUES REPORTED OVERNIGHT BY NURSING Exam Vital Signs (past 8 hours): - 11/08/21 04:40 11/08/21 08:30 11/08/21 08:51 Temperature 98.4 F 98.8 F Pulse Rate 88 82 88 Respiratory Rate 16 20 Blood Pressure 150/71 H 155/110 H 150/71 H Pulse Oximetry 96 95 Oxygen Delivery Method Nasal Cannula Oxygen Flow Rate 0 Narrative Exam Narrative: NO ACUTE DISTRESS.? PATIENT IS ALERT ORIENTED X3. MORBIDLY OBESE HEAD ATRAUMATIC NORMOCEPHALIC NECK : SUPPLE WITHOUT ADENOPATHY NO CAROTID BRUITS EYE:? EOMI, PERRLA, NORMAL CONJUNCTIVA; NO JAUNDICE CHEST:? REGULAR RATE.? ? NO RUBS.? PMI IS NON DISPLACED.? NO MURMURS; NORMAL S1-S2 PULMONARY:? DECREASED BS OVER THE BASES.? MILD BIBASILAR CRACKLES NOTED; NO INCREASED DULLNESS TO PERCUSSION ABDOMEN:? OBESE BUT SOFT.? NONTENDER.? NONDISTENDED.? BOWEL SOUNDS ARE PRESENT IN ALL 4 QUADRANTS.? NO MASS. EXTREMITIES:? DRESSING APPRECIATED TO THE RIGHT UPPER HAND.? SANGUINOUS DRAINAGE IS APPRECIATED.? SENSATION IS INTACT NEURO:? CRANIAL NERVES 2-12 GROSSLY INTACT. NO FOCAL NEUROLOGICAL DEFICIT NOTED. MSK:? BILATERAL BKA.? PATIENT WEARS PROSTHESIS BILATERALLY. SKIN:? FAIR SKIN TURGOR FOR AGE. :? NORMAL EXTERNAL GENITALIA. PSYCH :? APPROPRIATE MOOD AND AFFECT.? ALERT AWAKE ORIENTED X3 Objective Labs Result Diagrams: 11/07/21 06:00 11/08/21 05:35 Labs: Laboratory Results - last 24 hr 11/08/21 05:35 Sodium 133 L Potassium 4.4 Chloride 101 Carbon Dioxide 28 BUN 14 Creatinine 0.80 Estimated GFR > 60.0 BUN/Creatinine Ratio 17.5 Glucose 256 H Calcium 9.0 Phosphorus 3.1 Magnesium 1.6 Total Bilirubin 0.4 AST 20 ALT 10 Alkaline Phosphatase 101 Total Protein 6.2 L Albumin 3.3 L Globulin 2.9 Albumin/Globulin Ratio 1.1 [facility] Medical History Atrial fibrillation (Unknown) Carotid artery disease (Unknown) Coronary artery disease (Unknown) Diabetes (Unknown) Diabetes, type 1.5, uncontrolled, managed as type 2 Erectile dysfunction (Unknown) GERD (gastroesophageal reflux disease) (Unknown) Hepatitis C (Unknown) Hx of drug abuse Hyperlipemia (Unknown) Hypertension (Unknown) Hypothyroidism (Unknown) Measles (Unknown) Myocardial infarct (10/17/06) Obstructive sleep apnea (Unknown) Peripheral vascular disease (Unknown) Sacral back pain Surgical History History of open reduction and internal fixation (ORIF) procedure (09/2010) History of penile implant Hx of cataract surgery (~2004) Hx of coronary artery bypass surgery (10/2006) S/P bilateral below knee amputation (Unknown) Family History Father Age: 86 Heart disease ETOH abuse Mother Age: 94 Heart disease Alzheimer's dementia without behavioral disturbance, Alzheimer's disease of unspecified onset Social History household members: spouse Smoking Status: Never smoker alcohol intake: never substance use type: does not use Assessment & Plan Assessment & Plan narrative: PROBLEM LIST RIGHT HAND CELLULITIS.? STATUS POST I&D DAY # 2.? SURGERY? MANAGING UNCONTROLLED DIABETES.? INSULIN DEPENDENT. STARTED ON LANTUS CAD PER HISTORY.? CABG REPORTED HYPOTHYROIDISM PER HISTORY GERD PER HISTORY HYPERTENSION PER HISTORY PLAN 11/08 PATIENT APPEARED TO BE CLINICALLY IMPROVED SPOKE TO SURGERY TODAY AND DRAIN PLACED DURING SURGERY HAS BEEN REMOVED NO SIGN OF ACUTE COMPLICATIONS AT THIS TIME BLOOD SUGAR REMAINS SLIGHTLY UNCONTROLLED WILL INCREASE LANTUS TO 40 UNITS B.I.D. HIS NPH HAS BEEN DISCONTINUED CONTINUE SLIDING SCALE PER HOSPITAL PROTOCOL OTHERWISE, PATIENT IS CLEARED FOR DISCHARGE IN HOSPITALIST/ MEDICINE STANDPOINT COULD BE DISCHARGED ONCE OKAY WITH ORTHOPEDIC SURGERY WILL CONTINUE TO FOLLOW UNTIL DISCHARGE 11/07 ?STARTED PATIENT ON LANTUS FOR STRICTER BLOOD SUGAR CONTROL ?CONTINUE SLIDING SCALE FOR NOW ?LOW CARB DIET ORDERED ?PATIENT IS ON CEFAZOLIN PER HEPATIC SURGERY ?PRIOR CULTURE GROWING STREP VIRIDANS ?AWAITING FOLLOW-UP? RESULTS FROM CULTURES TAKEN IN THE? 0R? DURING HIS PROCEDURE ?ADDITIONAL MANAGEMENT PER CLINICAL COURSE ?WILL CONTINUE TO FOLLOW WITH YOU 11/06 WILL SWITCH PATIENT FROM NPH TO LANTUS FOR STRICTER? BS CONTROL CONTINUE SLIDING SCALE AT MEDIUM DOSE LOW CARB DIET MONITOR CLOSELY FOR ANY SIGNS OF COMPLICATION POSTOPERATIVELY WILL DEFER ANTIBIOTIC THERAPY TO THE SURGICAL TEAM DRESSING CHANGE ALSO BE DEFERRED TO THE SURGICAL TEAM. FOLLOW CULTURES CLOSELY ADJUSTMENT TO ANTIBIOTIC SHOULD REFLECT CULTURE RESULTS WITH SENSITIVITY REPORT CONTINUE HOME MED INDICATED PT AND OT TO MOBILIZE TOLERATED PATIENT TO BE ABOVE WHICH MALE INCENTIVE SPIROMETER ORDERED AND PATIENT TO BE INSTRUCTED TO USE WHILE AWAKE FALL AND ASPIRATION PRECAUTIONS TO BE MAINTAINED AT ALL TIMES MONITOR SKIN CLOSELY FOR ANY SIGN OF A SKIN BREAKDOWN ADDITIONAL MANAGEMENT PER CLINICAL COURSE WE APPRECIATE THIS KIND CONSULT WE WILL GLADLY FOLLOW WITH YOU Time Spent With Patient Critical Care time: I spent a total of [] minutes of critical care time on this patient's care today; this time is exclusive of procedural time.
[2021-11-08] MEDS: MAGNESIUM CHLORIDE 64 MG TABLET 128 MG PO (13:27)
[2021-11-08] MEDS: ZINC OXIDE OINT 60 GM 1 APPLIC TOP (14:05)
[2021-11-08] MEDS: TAMSULOSIN 0.4 MG CAPSULE PO (20:57)
[2021-11-08] MEDS: ATORVASTATIN 20 MG TABLET 40 MG PO (20:58)
[2021-11-08] MEDS: INSULIN GLARGINE 100 UNIT/ML 3ML PEN 40 UNIT SUBCUT (21:00)
[2021-11-09] MEDS: OXYCODONE IR 10 MG TABLET PO ×3 (01:50→09:44)
[2021-11-09] MEDS: LEVOTHYROXINE 75 MCG TABLET PO (05:58)
[2021-11-09] MEDS: LEVOTHYROXINE 100 MCG TABLET PO (05:58)
[2021-11-09] MEDS: CEFAZOLIN 2 GM/20 ML SYRINGE IV (05:58)
[2021-11-09 06:30] LABS: Alanine Aminotransferase 9 IU/L (<50); Albumin 3.5 g/dL (3.5-5.0); Albumin Globulin Ratio 1.1 (1.0-2.8); Alkaline Phosphatase 99 U/L (38-126); Aspartate Aminotransferase 21 IU/L (17-59); BUN Creatinine Ratio 18.8 (6-22); Bilirubin Total 0.4 mg/dL (0.2-1.3); Blood Urea Nitrogen 15 mg/dL (9-20); Calcium 9.2 mg/dL (8.4-10.2); Carbon Dioxide 32 mmol/L (22-32); Chloride 100 mmol/L (98-107); Estimated Glomerular Filt Rate > 60.0 mL/min (>60); Globulin 3.1 g/dL (1.7-4.1); Glucose 188 mg/dL (80-110); HEMOLYSIS < 15 (0-50); Magnesium 1.6 mg/dL (1.6-2.3); Phosphorous 3.1 mg/dL (2.3-3.7); Potassium 4.3 mmol/L (3.4-5.1); Sodium 136 mmol/L (137-145); Total Protein 6.6 g/dL (6.3-8.2)
[2021-11-09 08:00] VITALS: BP 120/66; PULSE 80; RESP 17; TEMP 36.5; O2SAT 97
[2021-11-09] MEDS: ACETAMINOPHEN 325 MG TABLET 975 MG PO (08:57)
[2021-11-09] MEDS: polyethylene glycoL 3350 17 GM POWD.PACK PO (08:57)
[2021-11-09] MEDS: LACTOBACILLUS ACIDOPHILUS TABLET 1 EACH PO (08:58)
[2021-11-09] MEDS: FUROSEMIDE 20 MG TABLET PO (08:58)
[2021-11-09] MEDS: GABAPENTIN 300 MG CAPSULE PO (08:58)
[2021-11-09] MEDS: PANTOPRAZOLE DR 40 MG TABLET PO (08:58)
[2021-11-09] MEDS: ASPIRIN EC 81 MG TABLET 162 MG PO (08:58)
[2021-11-09] MEDS: METOPROLOL IR 50 MG TABLET 100 MG PO (08:58)
[2021-11-09] MEDS: APIXABAN 5 MG TABLET PO (08:58)
[2021-11-09] MEDS: LOSARTAN 25 MG TABLET PO (08:58)
[2021-11-09] MEDS: INSULIN GLARGINE 100 UNIT/ML 3ML PEN 40 UNIT SUBCUT (09:01)
[2021-11-09] MEDS: INSULIN LISPRO 100 UNIT/ML 3ML VIAL SUBCUT (09:05)
--- NOTE | 2021-11-09 10:10 | PM.PNPO.1 ---
Subjective Subjective Date Patient Seen: 11/09/21 Time Patient Seen: 10:00 Exam Vital Signs (past 8 hours): - 11/09/21 08:00 Temperature 97.7 F Pulse Rate 80 Respiratory Rate 17 Blood Pressure 120/66 Pulse Oximetry 97 Oxygen Delivery Method Nasal Cannula Oxygen Flow Rate 0 Narrative Exam Narrative: The right hand wound is without significant swelling or erythema. There has been a small amount of serous drainage from the drain site. Objective Labs Result Diagrams: 11/07/21 06:00 11/09/21 06:00 Labs: Laboratory Results - last 24 hr 11/09/21 06:00 Sodium 136 L Potassium 4.3 Chloride 100 Carbon Dioxide 32 BUN 15 Creatinine 0.80 Estimated GFR > 60.0 BUN/Creatinine Ratio 18.8 Glucose 188 H Calcium 9.2 Phosphorus 3.1 Magnesium 1.6 Total Bilirubin 0.4 AST 21 ALT 9 Alkaline Phosphatase 99 Total Protein 6.6 Albumin 3.5 Globulin 3.1 Albumin/Globulin Ratio 1.1 PFSH Medical History Atrial fibrillation (Unknown) Carotid artery disease (Unknown) Coronary artery disease (Unknown) Diabetes (Unknown) Diabetes, type 1.5, uncontrolled, managed as type 2 Erectile dysfunction (Unknown) GERD (gastroesophageal reflux disease) (Unknown) Hepatitis C (Unknown) Hx of drug abuse Hyperlipemia (Unknown) Hypertension (Unknown) Hypothyroidism (Unknown) Measles (Unknown) Myocardial infarct (10/17/06) Obstructive sleep apnea (Unknown) Peripheral vascular disease (Unknown) Sacral back pain Surgical History History of open reduction and internal fixation (ORIF) procedure (09/2010) History of penile implant Hx of cataract surgery (~2004) Hx of coronary artery bypass surgery (10/2006) S/P bilateral below knee amputation (Unknown) Family History Father Age: 86 Heart disease ETOH abuse Mother Age: 94 Heart disease Alzheimer's dementia without behavioral disturbance, Alzheimer's disease of unspecified onset Social History household members: spouse Smoking Status: Never smoker alcohol intake: never substance use type: does not use Assessment & Plan Post-op Postoperative Procedures: Procedures Operation Date: 11/06/21 14:45 Actual Procedure Side Surgeon p I&D of hand dorsal abscess Right Varghese Guevara MD Postoperative day: 3 Postoperative status: doing well Postoperative status narrative: The patient is had a slowly improving appearance of his right hand after his incision and drainage. He does not appear to have a reaccumulation of infected fluid. I believe at this point he can be treated as an outpatient with oral antibiotics. Postoperative plan: discharge Postoperative plan narrative: I have discussed the case with Dr. Gualberto Nieto of the hospitalist service. The patient will be discharged today. He will be discharged on Keflex. He will follow up in my office next week for a wound check. As this was a deep abscess and a drain was placed the wound was closed and no wound care should be necessary other than a dry dressing. Time Spent With Patient Time with patient: 15-24 minutes
--- NOTE | 2021-11-09 10:44 | PC.NURSE ---
Day shift: Pt left unit at approx 1030. His friend is driving him home. He has all personal belongings. Paperwork was signed and all questions answered. Dressing on rt hand remains CDI. scripts sent to Pt's pharmacy electronic. Encouraged Pt to take all antibiotic pills until they are gone. Taken to his friends car via WC by [employer]. Midline IV removed and Pt tolerated that well.
--- NOTE | 2021-11-09 11:03 | CM.DPC ---
DCP Discharge Home Per MD, pt medically stable to d/c home today with oral abx and no identified barriers to discharge. Per RN, pt was given d/c instructions and has been tolerating diet and independent voiding and no concerns at this time and friend set up to provide transport home today. PT completed eval with pt and cleared him for home as back to baseline and no HH needed at this time. Plan: Patient to d/c home via friend POV today and oral abx and no further SW needs at this time. Pt anticipating getting back to work as a [employer]. Renée Zacarias, [employer]
== END 2021-11-09 10:46 | disposition home or self-care (01) | DRG 982 ==
LOC: ED 08:05 → AC 08:13
PROVIDERS: Emergency Medicine; Hospitalist; Admitting Provider Orthopaedic Surgery; Emergency Provider Emergency Medicine; PCP Student in an Organized Health Care Education/Training Program; Referring Provider Emergency Medicine; Visit Provider Orthopaedic Surgery
PROC: 0K9C0ZZ Drainage of Right Hand Muscle, Open Approach (ICD-10-PCS; principal; 2021-11-06 14:45)
DX: L03.113 Cellulitis of right upper limb (principal); Z68.41 Body mass index [BMI] 40.0-44.9, adult; E11.65 Type 2 diabetes mellitus with hyperglycemia; K21.9 Gastro-esophageal reflux disease without esophagitis; I48.91 Unspecified atrial fibrillation; E66.01 Morbid (severe) obesity due to excess calories; L89.151 Pressure ulcer of sacral region, stage 1; F11.10 Opioid abuse, uncomplicated; I10 Essential (primary) hypertension; Z89.512 Acquired absence of left leg below knee; Z89.511 Acquired absence of right leg below knee; Z20.822 Contact with and (suspected) exposure to COVID-19; Z79.4 Long term (current) use of insulin; Z79.01 Long term (current) use of anticoagulants
CPT/HCPCS: 36415; 73201; 80053; 82962; 83735; 84100; 85025; 85027; 87070; 87075; 87076; 87077; 87205; 87635; 96365; 96375; 97161; 99284; C9803; C9113; J0690; J0696; J1170; J1815; J2250; J2270; J2704; J2765; J3010; Q9967

== ENCOUNTER 2021-12-13 17:51 | Inpatient (IN) | payer MEDICARE, OTHER, SELFPAY ==
[2021-11-06 13:25] VITALS: BMI 45.7
[2021-12-13] VITALS (8 sets, daily range): BP systolic 133–167; BP diastolic 68–85; PULSE 86–105; RESP 17–24; TEMP 37.1; O2SAT 98–99; BMI 35.3; BMI 32.1
--- NOTE | 2021-12-13 18:12 | DI.RAD.S_ITS ---
PROCEDURE: XR ACUTE ABDOMEN SERIES INDICATIONS: abdominal pain, diarrhea TECHNIQUE: One view chest and two views of the abdomen were acquired. COMPARISON: [facility], , ABDOMEN ACUTE SERIES, 01/16/2007, 13:55. FINDINGS: Surgical changes and devices: Midline sternal wires and mediastinal vascular clips noted. Chest: Lungs are clear. Heart size is normal. No pleural effusions. No pneumoperitoneum. Minimal left basilar atelectasis and infiltrate Abdomen: Bowel gas pattern is normal. No suspicious calcifications. Visualized solid organ contours appear normal. Bones: No suspicious bony lesions. IMPRESSION: Minimal left basilar atelectasis and infiltrate. Approved by: Jordy Edwards M.D. on 12/13/2021 at 18:14
[2021-12-13 18:38] LABS: Add Manual Diff / Slide Review NO; Basophils Absolute Auto 0 /uL (0-100); Basophils Percent Auto 0.4 % (0-2); Eosinophils Absolute Auto 100 /uL (0-450); Eosinophils Percent Auto 2.1 % (2-4); Hemoglobin 9.8 g/dL (13.5-17.5); Lymphocytes Absolute Auto 1500 /uL (1100-4500); Lymphocytes Percent Auto 28.4 % (25-40); Mean Corpuscular HGB Conc 33.9 % (30-36); Mean Corpuscular Hemoglobin 27.6 PG (26-34); Mean Corpuscular Volume 81.2 fL (80-100); Monocytes Absolute Auto 500 /uL (0-900); Monocytes Percent Auto 9.8 % (3-14); Neutrophils Absolute Auto 3200 /uL (1500-7000); Neutrophils Percent Auto 59.3 % (50-75); Platelet Count 214 X10^3/uL (150-400); Red Blood Cell Count 3.57 X10^6/uL (4.5-5.9); Red Cell Distribution Width 14.4 % (11.6-14.8); White Blood Cell Count 5.3 X10^3/uL (4.5-11.0)
[2021-12-13 18:47] LABS: INR 1.6 (0.9-1.3); Prothrombin Time 17.6 SECONDS (10.1-12.7)
[2021-12-13 18:53] LABS: Alanine Aminotransferase 20 IU/L (<50); Albumin 3.6 g/dL (3.5-5.0); Albumin Globulin Ratio 1.3 (1.0-2.8); Alkaline Phosphatase 90 U/L (38-126); Aspartate Aminotransferase 23 IU/L (17-59); BUN Creatinine Ratio 25.4 (6-22); Bilirubin Total 0.7 mg/dL (0.2-1.3); Blood Urea Nitrogen 16 mg/dL (9-20); Calcium 8.8 mg/dL (8.4-10.2); Carbon Dioxide 31 mmol/L (22-32); Chloride 106 mmol/L (98-107); Estimated Glomerular Filt Rate > 60.0 mL/min (>60); Globulin 2.7 g/dL (1.7-4.1); Glucose 108 mg/dL (80-110); HEMOLYSIS < 15 (0-50); Potassium 3.4 mmol/L (3.4-5.1); Sodium 142 mmol/L (137-145); Total Protein 6.3 g/dL (6.3-8.2)
--- NOTE | 2021-12-13 19:05 | ED_ITS ---
HPI - GI Bleed General Chief complaint: GI Bleed Stated complaint: uncontrolled bowel movements, last one was red Time Seen by Provider: 12/13/21 18:09 Source: patient Mode of arrival: Ambulatory History of Present Illness HPI Narrative: 75-year-old male nonsmokerinsulin-dependent diabetic, bilateral BKA, AFib on anticoagulation with recent hospitalizations for right upper extremity cellulitis and abscess and frequent antibiotic use presents with a chief complaint of ongoing loose stools which have become dark. He states that he feels dizzy, weak and lightheaded, he had taken some [id number] anti diarrheal and his loose stools have slowed but continued to be black. He denies any vomiting and may have had some bright red element to his stool at some point. He denies any pain. He has had no fever or chills. Related Data Home Medications Medication Instructions Recorded Confirmed aspirin 81 mg tablet,delayed 2 tab PO DAILY 09/16/18 12/13/21 release apixaban 5 mg tablet 5 mg PO BID tab 08/22/21 12/13/21 Previous Rx's Medication Instructions Recorded metoprolol tartrate 100 mg tablet See Rx Instructions .ROUTE 10/16/20 .COMPLEX #180 tablet furosemide 20 mg tablet 20 mg PO QDAY #90 tab 10/20/20 losartan 25 mg tablet 25 mg PO DAILY #90 tab 10/20/20 pantoprazole 40 mg tablet,delayed 40 mg PO DAILY #90 tab 02/01/21 release Syringes: 1cc Insulin Syringes #100 each 04/02/21 with [place] Liners, suspension sleeves, and #1 ea 09/11/21 socks levothyroxine 175 mcg tablet 175 mcg PO DAILY #90 tab 10/01/21 Glucose: Test Strips #250 ea 10/03/21 rosuvastatin 20 mg tablet 20 mg PO BEDTIME #90 tab 10/12/21 L.acidophilus-L.bulgar-B.bifid-S.thermoph 1 ea PO BID #120 tab 11/05/21 1 billion cell-250 mg tablet (Bacid) insulin human U-100 NPH-regulr 40 unit (0.4 mL) SUBCUT BIDAC #20 11/05/21 70-30 mix 100 unit/mL subcutaneous ml susp (Humulin 70/30 U-100 Insulin) tamsulosin 0.4 mg capsule 0.4 mg PO BEDTIME #90 cap 11/13/21 Allergies Allergy/AdvReac Type Severity Reaction Status Date / Time cephalexin Allergy Severe Blister Verified 12/11/21 16:44 adhesive tape [ADHESIVE TAPE] AdvReac Mild PATIENT Verified 12/11/21 16:42 STATES IT PEELS HIS SKIN OFF lisinopril [LISINOPRIL] AdvReac Mild COUGH Verified 12/11/21 16:42 prochlorperazine AdvReac Unknown Verified 12/11/21 16:42 [PROCHLORPERAZINE] shellfish derived AdvReac Unknown Verified 12/11/21 16:42 [SHELLFISH DERIVED] Review of Systems Review of Systems Narrative: GENERAL: See HPI HEENT: Denies sinus pain, ear pain, sore throat, difficulty swallowing, dizziness. RESPIRATORY: Denies dyspnea, cough, wheezing, hemoptysis, sputum. CARDIOVASCULAR: Denies chest pain, palpitations, orthopnea, edema, GASTROINTESTINAL: See HP : Denies dysuria, frequency, incontinence, hematuria, urinary retention. MUSCULOSKELETAL: denies weakness, joint pain, or bony pain SKIN: Denies rash, skin lesions, or other NEUROLOGIC: Denies weakness, headache, numbness, change in speech, confusion, seizures, incoordination. PSYCHIATRIC: No concerning psychosocial issues. 12 point review of systems is negative except for those stated above Patient History Medical History Atrial fibrillation (Unknown) Carotid artery disease (Unknown) Coronary artery disease (Unknown) Diabetes (Unknown) Diabetes, type 1.5, uncontrolled, managed as type 2 Erectile dysfunction (Unknown) GERD (gastroesophageal reflux disease) (Unknown) Hepatitis C (Unknown) Hx of drug abuse Hyperlipemia (Unknown) Hypertension (Unknown) Hypothyroidism (Unknown) Measles (Unknown) Myocardial infarct (10/17/06) Obstructive sleep apnea (Unknown) Peripheral vascular disease (Unknown) Sacral back pain Surgical History History of open reduction and internal fixation (ORIF) procedure (09/2010) History of penile implant Hx of cataract surgery (~2004) Hx of coronary artery bypass surgery (10/2006) S/P bilateral below knee amputation (Unknown) Family History Father Age: 86 Heart disease ETOH abuse Mother Age: 94 Heart disease Alzheimer's dementia without behavioral disturbance, Alzheimer's disease of unspecified onset Social History household members: spouse Smoking Status: Never smoker alcohol intake: never substance use type: does not use Smoking Status: Never smoker alcohol intake frequency: holidays/special occasions only Substance Use Type: does not use Exam Narrative Exam Narrative: GENERAL: [75 year old patient appears stated age. Well-developed patient, in mild distress. HEAD: Atraumatic. Normocephalic. EYES: Pupils equal round and reactive. Extraocular motions intact. No scleral icterus. No injection or drainage. ENT: Nose without bleeding, purulent drainage. Throat without erythema, tonsillar hypertrophy or exudate. Airway patent. NECK: Trachea midline. Non tender CARDIOVASCULAR: Regular rate and rhythm without murmurs, gallops, or rubs. RESPIRATORY: Clear to auscultation. Breath sounds equal bilaterally. No wheezes, rales, or rhonchi. GASTROINTESTINAL: Abdomen soft, non-tender, nondistended. RECTAL: No significant active bleeding, though stool is heme-positive EXTREMITIES: No edema or joint tenderness. BACK: Nontender without deformity or crepitance. No flank tenderness. NEURO: AOx3. SKIN: No rash or erythema of visible areas Initial Vital Signs Initial Vital Signs: Vital Signs Temperature 98.7 F 12/13/21 18:06 Pulse Rate 105 H 12/13/21 18:06 Respiratory Rate 20 12/13/21 18:06 Blood Pressure 167/72 H 12/13/21 18:06 Pulse Oximetry 99 12/13/21 18:06 Course Orders Ordered: ED Orders 12/13/21 18:12 XR acute abdomen series Stat 12/13/21 18:20 Complete Blood Count AUTO DIFF Stat Comprehensive Metabolic Panel Stat Prothrombin Time INR Stat Type and Screen Stat 12/13/21 19:05 COVID19 -Nasal swab/Pre-Proc Stat 12/13/21 20:15 Stool Culture Stat 12/13/21 20:20 C Difficile [Clostridium Difficile Tox PCR] Stat Dextrose (Dextrose 50 % In Water 25 Gm/50 Ml Syringe) 25 gm IV PRN PRN PRN Reason: Hypoglycemia Last Admin: 12/13/21 22:01 Dose: 25 gm Documented by: RICO Pantoprazole Sodium 80 mg/ (Sodium Chloride) 100 mls @ 10 mls/hr IV NOW ONE Stop: 12/14/21 05:41 POTASSIUM CHLORIDE IN WATER (Potassium Cl 10 Meq/100 Ml Daisy) 10 meq in 100 mls @ 100 mls/hr IV Q1H VICK Stop: 12/14/21 02:59 Insulin Human Lispro (Insulin Lispro 100 Unit/Ml 3ml Vial) 0 unit SUBCUT ACHS VICK; Protocol Losartan Potassium (Losartan 25 Mg Tablet) 25 mg PO DAILY [facility] Metoprolol Tartrate (Metoprolol Ir 50 Mg Tablet) 100 mg PO BID [facility] Last Admin: 12/13/21 21:51 Dose: 100 mg Documented by: RICO Naloxone HCl (Naloxone 0.4 Mg/Ml Vial) 0.2 mg IV Q2MIN PRN PRN Reason: Opiate Reversal Ondansetron HCl (Ondansetron 4 Mg/2 Ml Inj) 4 mg IV Q8HR PRN PRN Reason: Nausea And Vomiting Pantoprazole Sodium (Pantoprazole 40 Mg Vial) 40 mg IV BID VICK Vancomycin HCl (Vancomycin 125 Mg Capsule) 125 mg PO Q6H VICK Discontinued Medications Magnesium Sulfate (Magnesium Sulfate) 2 gm in 50 mls @ 25 mls/hr IV NOW ONE Stop: 12/13/21 23:07 Last Admin: 12/13/21 21:49 Dose: 25 mls/hr Documented by: RICO Cosigned by: CHARLEEN Vital Signs Vital signs: Vital Signs - 8 hr 12/13/21 18:06 12/13/21 18:31 12/13/21 19:00 Temperature 98.7 F Pulse Rate 105 H 86 92 H Respiratory Rate 20 17 20 Blood Pressure 167/72 H 152/69 H Pulse Oximetry 99 98 99 12/13/21 19:30 Temperature Pulse Rate 91 H Respiratory Rate 24 Blood Pressure 145/69 H Pulse Oximetry MDM - GI Bleed Lab Data Result diagrams: 12/13/21 20:59 12/13/21 20:59 Labs: Lab Results 12/13/21 12/13/21 12/13/21 Range/Units 18:20 18:20 18:20 WBC 5.3 (4.5-11.0) X10^3/uL RBC 3.57 L (4.5-5.9) X10^6/uL Hgb 9.8 L (13.5-17.5) g/dL Hct 29.0 L (41-53) % MCV 81.2 (80-100) fL MCH 27.6 (26-34) PG MCHC 33.9 (30-36) % RDW 14.4 (11.6-14.8) % Plt Count 214 (150-400) X10^3/uL Neut % (Auto) 59.3 (50-75) % Lymph % (Auto) 28.4 (25-40) % [place] % (Auto) 9.8 (3-14) % Eos % (Auto) 2.1 (2-4) % Baso % (Auto) 0.4 (0-2) % Neut # (Auto) 3200 (6623-2235) /uL Lymph # (Auto) 1500 (9663-4162) /uL [place] # (Auto) 500 (0-900) /uL Eos # (Auto) 100 (0-450) /uL Baso # (Auto) 0 (0-100) /uL PT 17.6 H (10.1-12.7) SECONDS INR 1.6 H (0.9-1.3) Sodium 142 (137-145) mmol/L Potassium 3.4 (3.4-5.1) mmol/L Chloride 106 (98-107) mmol/L Carbon Dioxide 31 (22-32) mmol/L BUN 16 (9-20) mg/dL Creatinine 0.63 L (0.66-1.25) mg/dL Estimated GFR > 60.0 (>60) mL/min BUN/Creatinine Ratio 25.4 H (6-22) Glucose 108 (80-110) mg/dL Calcium 8.8 (8.4-10.2) mg/dL Magnesium (1.6-2.3) mg/dL Total Bilirubin 0.7 (0.2-1.3) mg/dL AST 23 (17-59) IU/L ALT 20 (<50) IU/L Alkaline Phosphatase 90 (38-126) U/L Total Protein 6.3 (6.3-8.2) g/dL Albumin 3.6 (3.5-5.0) g/dL Globulin 2.7 (1.7-4.1) g/dL Albumin/Globulin Ratio 1.3 (1.0-2.8) SARS-CoV-2 (PCR) (Negative) Blood Type Antibody Screen 12/13/21 12/13/21 12/13/21 Range/Units 18:20 18:20 19:05 WBC (4.5-11.0) X10^3/uL RBC (4.5-5.9) X10^6/uL Hgb (13.5-17.5) g/dL Hct (41-53) % MCV (80-100) fL MCH (26-34) PG MCHC (30-36) % RDW (11.6-14.8) % Plt Count (150-400) X10^3/uL Neut % (Auto) (50-75) % Lymph % (Auto) (25-40) % [place] % (Auto) (3-14) % Eos % (Auto) (2-4) % Baso % (Auto) (0-2) % Neut # (Auto) (2083-6357) /uL Lymph # (Auto) (2955-2817) /uL [place] # (Auto) (0-900) /uL Eos # (Auto) (0-450) /uL Baso # (Auto) (0-100) /uL PT (10.1-12.7) SECONDS INR (0.9-1.3) Sodium (137-145) mmol/L Potassium (3.4-5.1) mmol/L Chloride (98-107) mmol/L Carbon Dioxide (22-32) mmol/L BUN (9-20) mg/dL Creatinine (0.66-1.25) mg/dL Estimated GFR (>60) mL/min BUN/Creatinine Ratio (6-22) Glucose (80-110) mg/dL Calcium (8.4-10.2) mg/dL Magnesium 1.5 L (1.6-2.3) mg/dL Total Bilirubin (0.2-1.3) mg/dL AST (17-59) IU/L ALT (<50) IU/L Alkaline Phosphatase (38-126) U/L Total Protein (6.3-8.2) g/dL Albumin (3.5-5.0) g/dL Globulin (1.7-4.1) g/dL Albumin/Globulin Ratio (1.0-2.8) SARS-CoV-2 (PCR) Negative (Negative) Blood Type O Positive Antibody Screen Negative Point of Care Testing Glucose POC 77 MDM Narrative Medical decision making narrative: He patient is fatigued and feeling unwell in the setting of GI bleed while on anticoagulation. His hemoglobin has dropped 3 g. He will require hospitalization for ongoing evaluation and possible intervention. General surgery has been notified and is happy to provide surgical backup should be indicated. Hospitalist happy to accept, patient understands and agrees with the plan Discharge Plan Departure Patient Disposition: Admitted As Inpatient Clinical Impression: Acute GI bleeding, Anticoagulation adequate Admit Date/Time: 12/13/21 19:35 Admit Provider: Zelda Sharp
[2021-12-13 19:33] LABS: COVID19 -Nasal RAPID Negative (Negative)
[2021-12-13 20:12] LABS: Magnesium 1.5 mg/dL (1.6-2.3)
--- NOTE | 2021-12-13 20:29 | PM.HP.1 ---
History of Present Illness History of Present Illness Date Patient Seen: 12/13/21 Time Patient Seen: 19:58 Chief complaint: uncontrolled bowel movements, last one was red Narrative: Tulio Yi is a 75-year-old male with a history of insulin-dependent Type 2 diabetic, CAD s/p CABG, Portal HTN w/out esophageal varices, hep C-resolved, NSTEMI [place] 2005, G[place], PAD, bilat BKA, Chronic atrial fibrillation rate controlled-chronic Eliquis, hypothyroidism, and remote Hx of IVDU (meth/heroin) who has had multiple hospitalizations, antibiotics & surgical interventions for Right hand cellulitis/abcess in the past year, presented to the ED this evening with a chief complaint of loose stool which was dark and tarry x1 at approximately 1730.? He has had diarrhea on & off for the past month due to antibiotics. He complains of chronic worsening dizziness, weakness, and lightheadedness. He reports some bright red element to his stool at some point. He has taken some [id number] anti diarrheal and his loose stools have slowed but continued to be black.? He denies chest pain, shortness of breath, abdominal pain, nausea, vomiting, fever, chills, or cough. Patient's vitals upon admit temp 98.7? mildly elevated BP 152/69, HR 92, RR 20, O2 saturation 99% on room air. Patient's hemoglobin 9.8/hematocrit 29. 11/07/2021 H/H 12.7/37.4. Platelets are normal, no white count, patient's chemistries all WNL with the exception of low creatinine 0.63 last recorded creatinine 11/09/2021 0.80 WNL. PT 17.6, INR 1.6. Occult blood in ED positive. Patient typed and crossed: blood type O positive. Patient's chest x-ray demonstrated minimal left basilar atelectasis and infiltrate. Patient is stable and in no distress at this time. Dr. Curiel general surgery was consulted in ED and will consult on the case. [facility] (11/03-11/05/2021) (11/06-11/09/2021) Per Dr. Nieto :Right hand cellulitis abscess, Diabetes mellitus poor control, Chronic atrial fibrillation, Chronic anticoagulation 11/06/2021 incision and drainage of right hand abscess with Dr. Marlon Guevara Patient was treated with cefazolin.? He had incision and drainage on November 06.? Hand appearance is much improved.? His wound culture is growing Gram-positive bacilli, likely lab contaminant versus anthrax which is quite rare and unlikely.? Patient is being discharged on cephalexin and will follow-up at ortho clinic next week.? Follow up final wound culture results next week at ortho clinic.? In terms of his diabetic control his A1c is 8.2 which is suboptimal but it seems were patient has been for a long time.? No change was made in treatment regimen. Patient History Medical History Atrial fibrillation (Unknown) Carotid artery disease (Unknown) Coronary artery disease (Unknown) Diabetes (Unknown) Diabetes, type 1.5, uncontrolled, managed as type 2 Erectile dysfunction (Unknown) GERD (gastroesophageal reflux disease) (Unknown) Hepatitis C (Unknown) Hx of drug abuse Hyperlipemia (Unknown) Hypertension (Unknown) Hypothyroidism (Unknown) Measles (Unknown) Myocardial infarct (10/17/06) Obstructive sleep apnea (Unknown) Peripheral vascular disease (Unknown) Sacral back pain Surgical History History of open reduction and internal fixation (ORIF) procedure (09/2010) History of penile implant Hx of cataract surgery (~2004) Hx of coronary artery bypass surgery (10/2006) S/P bilateral below knee amputation (Unknown) Family & Social History Family History Father Age: 86 Heart disease ETOH abuse Mother Age: 94 Heart disease Alzheimer's dementia without behavioral disturbance, Alzheimer's disease of unspecified onset Social History: household members spouse Safety & Behavioral: Feels Safe in Current Yes Environment Been Physically Hurt or No Threatened By a Person Tobacco & Substance use: Smoking Status Never smoker alcohol intake never alcohol intake frequency holiday/special occasion Substance Use Type does not use Meds Home Medications and Allergies Home Medications Medication Instructions Recorded Confirmed Type aspirin 81 mg tablet,delayed 2 tab PO DAILY 09/16/18 12/13/21 History release metoprolol tartrate 100 mg tablet See Rx Instructions .ROUTE 10/16/20 12/13/21 Rx .COMPLEX #180 tablet furosemide 20 mg tablet 20 mg PO QDAY #90 tab 10/20/20 12/13/21 Rx losartan 25 mg tablet 25 mg PO DAILY #90 tab 10/20/20 12/13/21 Rx pantoprazole 40 mg tablet,delayed 40 mg PO DAILY #90 tab 02/01/21 12/13/21 Rx release Syringes: 1cc Insulin Syringes #100 each 04/02/21 12/13/21 Rx with [place] apixaban 5 mg tablet 5 mg PO BID tab 08/22/21 12/13/21 History Liners, suspension sleeves, and #1 ea 09/11/21 12/13/21 Rx socks levothyroxine 175 mcg tablet 175 mcg PO DAILY #90 tab 10/01/21 12/13/21 Rx Glucose: Test Strips #250 ea 10/03/21 12/13/21 Rx rosuvastatin 20 mg tablet 20 mg PO BEDTIME #90 tab 10/12/21 12/13/21 Rx L.acidophilus-L.bulgar-B.bifid-S.thermoph 1 ea PO BID #120 tab 11/05/21 12/13/21 Rx 1 billion cell-250 mg tablet (Bacid) insulin human U-100 NPH-regulr 40 unit (0.4 mL) SUBCUT BIDAC #20 11/05/21 12/13/21 Rx 70-30 mix 100 unit/mL subcutaneous ml susp (Humulin 70/30 U-100 Insulin) tamsulosin 0.4 mg capsule 0.4 mg PO BEDTIME #90 cap 11/13/21 12/13/21 Rx Allergies Allergy/AdvReac Type Severity Reaction Status Date / Time cephalexin Allergy Severe Blister Verified 12/11/21 16:44 adhesive tape [ADHESIVE TAPE] AdvReac Mild PATIENT Verified 12/11/21 16:42 STATES IT PEELS HIS SKIN OFF lisinopril [LISINOPRIL] AdvReac Mild COUGH Verified 12/11/21 16:42 prochlorperazine AdvReac Unknown Verified 12/11/21 16:42 [PROCHLORPERAZINE] shellfish derived AdvReac Unknown Verified 12/11/21 16:42 [SHELLFISH DERIVED] Review of Systems Review of Systems Narrative: All 12 point systems reviewed with the patient and are negative except otherwise documented. Exam Vital Signs (past 8 hours): - 12/13/21 18:06 12/13/21 18:31 12/13/21 19:00 Temperature 98.7 F Pulse Rate 105 H 86 92 H Respiratory Rate 20 17 20 Blood Pressure 167/72 H 152/69 H Pulse Oximetry 99 98 99 Oxygen Delivery Method Room Air Narrative Exam Narrative: General: Patient is a well-developed, well-nourished pleasant male, who appears younger than stated age, in no distress at this time. HEENT: Normocephalic, atraumatic, extraocular muscles intact, oral pharynx is clear and mucous membranes are moist. Neck is supple and symmetric, trachea is midline, no adenopathy, no thyroid enlargement, nontender, no masses palpated. Negative for JVD Chest: Normal AP diameter and contour without kyphoscoliosis, no nasal flaring, retractions, or tachypneic labored Lungs: Auscultation of all lung aguilar are clear coarse without adventitious sounds, wheezes, rhonchi, or rales. Cardio: regular rate and rhythm without murmur, rubs, or gallops, no carotid bruit, no cardiac pulsations present. Abdomen: Soft nontender, negative for organomegaly, or masses. Bowel sounds are present in all 4 quadrants without guarding or rebound, no CVA tenderness. Musculoskeletal: Muscle strength and tone are equal within normal limits, no deformity, crepitus, effusions, cyanosis, clubbing or edema present. Full range of motion intact radial pulses are normal. Bilateral BK amputation. Skin: Warm dry and intact without rashes, ulcerations or petechiae. Neuro: Alert and orientated x3, sensation to touch intact, no gross deficits noted of cranial nerves. Psych: Patient has a well-kept appearance, appropriate affect, mental status attitude thought context and judgment are appropriate for age. Objective Labs Result Diagrams: 12/13/21 18:20 12/13/21 18:20 Labs: Laboratory Results - last 24 hr 12/13/21 12/13/21 12/13/21 18:20 18:20 18:20 WBC 5.3 RBC 3.57 L Hgb 9.8 L Hct 29.0 L MCV 81.2 MCH 27.6 MCHC 33.9 RDW 14.4 Plt Count 214 Neut % (Auto) 59.3 Lymph % (Auto) 28.4 [place] % (Auto) 9.8 Eos % (Auto) 2.1 Baso % (Auto) 0.4 Neut # (Auto) 3200 Lymph # (Auto) 1500 [place] # (Auto) 500 Eos # (Auto) 100 Baso # (Auto) 0 PT 17.6 H INR 1.6 H Sodium 142 Potassium 3.4 Chloride 106 Carbon Dioxide 31 BUN 16 Creatinine 0.63 L Estimated GFR > 60.0 BUN/Creatinine Ratio 25.4 H Glucose 108 Calcium 8.8 Magnesium Total Bilirubin 0.7 AST 23 ALT 20 Alkaline Phosphatase 90 Total Protein 6.3 Albumin 3.6 Globulin 2.7 Albumin/Globulin Ratio 1.3 SARS-CoV-2 (PCR) Blood Type Antibody Screen 12/13/21 12/13/21 12/13/21 18:20 18:20 19:05 WBC RBC Hgb Hct MCV MCH MCHC RDW Plt Count Neut % (Auto) Lymph % (Auto) [place] % (Auto) Eos % (Auto) Baso % (Auto) Neut # (Auto) Lymph # (Auto) [place] # (Auto) Eos # (Auto) Baso # (Auto) PT INR Sodium Potassium Chloride Carbon Dioxide BUN Creatinine Estimated GFR BUN/Creatinine Ratio Glucose Calcium Magnesium 1.5 L Total Bilirubin AST ALT Alkaline Phosphatase Total Protein Albumin Globulin Albumin/Globulin Ratio SARS-CoV-2 (PCR) Negative Blood Type O Positive Antibody Screen Negative Assessment & Plan Assessment & Plan narrative: Tulio Yi is a 75-year-old male with a history of insulin-dependent Type 2 diabetic, CAD s/p CABG, Portal HTN w/out esophageal varices, hep C-resolved, NSTEMI [place] 2005, [place], PAD, bilat BKA, Chronic atrial fibrillation rate controlled-chronic Eliquis, hypothyroidism, and remote Hx of IVDU (meth/heroin) who has had multiple hospitalizations, antibiotics & surgical interventions for Right hand cellulitis/abcess in the past year, presented with Lower GI bleed on chronic eliquis. 1. Lower GI bleed, acute, with diarrhea, acute present on admission on chronic Eliquis -Hemoglobin 9.8/hematocrit 29. 11/07/2021: H/H 12.7/37.4. -consult general surgery Dr. Curiel -NPO -80 mg IV Protonix one time dose, followed by 40 mg IV b.i.d. -C diff/H pylori/stool culture: ordered -Monitor H&H, electrolytes, continued bleeding. 2. History of right hand cellulitis/Abcess, not present on admission -Managed by [facility]/Dr. Montero/Dr. Guevara -[facility] hospitalization 22,021, 1221-12 03/06/2021-I personally reviewed hospital notes & surgery consults -[facility] hospitalization 11/18/2021 to 12/04/2021: Postop right hand infection, syncope, epistaxis, leukocytosis, COVID-19 infection, lactic acidosis. -I personally reviewed [facility] chart notes including imaging consult and discharge. - I&D by Dr. Guevara at [facility] on November 06, 2021 3. Insulin-dependent type 2, chronic, poorly controlled, related hyperlipidemia, chronic, present on admission - 11/03/2021: A1C 8.2% - Hold 70/30 bid, until no longer NPO -DM protocol, monitor for hypoglycemia -blood sugar checks q.6 hours while NPO, change to ACHS BS check once no longer NPO - sliding scale insulin lispro ordered for coverage - Carb control diet once no longer NPO -hold rosuvastatin while NPO. 4. Chronic Atrial fibrillation, currently rate controlled, chronic Eliquis, with RBBB, chronic, present on admission - Hold apixaban- GI bleed - continue metoprolol- give with sips while NPO 5. Essential hypertension, portal hypertension without esophageal varices, with a history of NSTEMI 2006, acute on chronic, present on admission -continue losartan and metoprolol -last echo 2018 EF 50-55%- I personally reviewed echo and cardiology notes Dr. [facility] 6. CAD status post CABG, chronic, with PAD, chronic, present on admission -Holding eliquis & ASA- due to GI bleed -Managed by Cardiology Dr. Templeton 7. Hypothyroidism, acquired, chronic, present on admission -hold levothyroxine while NPO 8. IVDU, meth and heroin, acute on chronic, present on admission -patient endorsed in recent hospitalizations and medical appointments to current usage, and a desire to cease. -patient education regarding the cessation of substance abuse. 9. History of positive COVID-19 infection, acute, no tpresent on admission -patient was found to be positive for COVID-19 on admission to [facility] on 11/18/2001 -patient is asymptomatic today -COVID is negative today Code status:Full Surrogate decision maker: Mary Beth DIAZ PCR:Negative COVID vaccination: Unknown DVT/VTE prophylaxis:Hold medication due to GI Bleed, NO Scd's -Bilateral BK amputee Disposition: Patient admitted for lower GI bleed expected length of stay greater than 2 midnights I have utilized all available immediate resources to obtain, update, or review the patient's current medications. I confirmed that the patient's advanced care plan is present, Code status is documented and/or surrogate decision maker is listed in the patient's medical record. Time Spent With Patient Critical Care time: I spent a total of [] minutes of critical care time on this patient's care today; this time is exclusive of procedural time.
[2021-12-13 21:12] LABS: Hematocrit 28.8 % (41-53); Hemoglobin 9.6 g/dL (13.5-17.5)
[2021-12-13 21:22] LABS: Alanine Aminotransferase 20 IU/L (<50); Albumin 3.5 g/dL (3.5-5.0); Albumin Globulin Ratio 1.3 (1.0-2.8); Alkaline Phosphatase 81 U/L (38-126); Aspartate Aminotransferase 23 IU/L (17-59); Bilirubin Total 0.7 mg/dL (0.2-1.3); Blood Urea Nitrogen 14 mg/dL (9-20); Calcium 8.9 mg/dL (8.4-10.2); Carbon Dioxide 33 mmol/L (22-32); Chloride 107 mmol/L (98-107); Estimated Glomerular Filt Rate > 60.0 mL/min (>60); Globulin 2.7 g/dL (1.7-4.1); Glucose 77 mg/dL (80-110); HEMOLYSIS < 15 (0-50); Potassium 3.1 mmol/L (3.4-5.1); Sodium 142 mmol/L (137-145); Total Protein 6.2 g/dL (6.3-8.2)
[2021-12-13] MEDS: MAGNESIUM SULFATE 2 GM/50 ML PIGGYBACK IV (21:49)
[2021-12-13] MEDS: METOPROLOL IR 50 MG TABLET 100 MG PO (21:51)
[2021-12-13] MEDS: DEXTROSE 50 % IN WATER 25 GM/50 ML SYRINGE IV (22:01)
[2021-12-13 22:15] LABS: Clostridium Difficile Tox PCR Positive for C. diff (Negative)
[2021-12-14] VITALS (13 sets, daily range): BP systolic 124–152; BP diastolic 52–82; PULSE 80–90; RESP 17–19; TEMP 36.5–37; O2SAT 94–99
[2021-12-14] MEDS: PANTOPRAZOLE 80 MG in SODIUM CHLORIDE 0.9% 100 ML 10 ML IV (00:52)
[2021-12-14] MEDS: POTASSIUM CHLORIDE IN WATER 10 MEQ/100 ML PIGGYBACK 100 MEQ IV (02:52)
[2021-12-14] MEDS: POTASSIUM CHLORIDE 20 MEQ TAB 40 MEQ PO (03:53)
[2021-12-14] MEDS: VANCOMYCIN 125 MG CAPSULE PO ×3 (03:55→18:13)
[2021-12-14] MEDS: LOSARTAN 25 MG TABLET PO (09:19)
[2021-12-14] MEDS: PANTOPRAZOLE 40 MG VIAL IV ×2 (09:19→21:59)
[2021-12-14] MEDS: METOPROLOL IR 50 MG TABLET 100 MG PO ×2 (09:19→21:59)
[2021-12-14 09:30] LABS: INR 1.5 (0.9-1.3)
[2021-12-14 09:32] LABS: Add Manual Diff / Slide Review NO; Basophils Absolute Auto 0 /uL (0-100); Basophils Percent Auto 0.6 % (0-2); Eosinophils Absolute Auto 100 /uL (0-450); Eosinophils Percent Auto 2.2 % (2-4); Hematocrit 29.3 % (41-53); Hemoglobin 9.6 g/dL (13.5-17.5); Lymphocytes Absolute Auto 1200 /uL (1100-4500); Lymphocytes Percent Auto 21.3 % (25-40); Mean Corpuscular Hemoglobin 26.9 PG (26-34); Mean Corpuscular Volume 81.7 fL (80-100); Monocytes Absolute Auto 600 /uL (0-900); Monocytes Percent Auto 9.6 % (3-14); Neutrophils Absolute Auto 3900 /uL (1500-7000); Neutrophils Percent Auto 66.3 % (50-75); PTT Partial Thromboplastin Tim 35 SECONDS (26.4-36.2); Platelet Count 220 X10^3/uL (150-400); Red Blood Cell Count 3.58 X10^6/uL (4.5-5.9); Red Cell Distribution Width 14.6 % (11.6-14.8); White Blood Cell Count 5.8 X10^3/uL (4.5-11.0)
[2021-12-14 09:37] LABS: Alanine Aminotransferase 18 IU/L (<50); Albumin 3.3 g/dL (3.5-5.0); Albumin Globulin Ratio 1.4 (1.0-2.8); Alkaline Phosphatase 81 U/L (38-126); Aspartate Aminotransferase 23 IU/L (17-59); BUN Creatinine Ratio 20.3 (6-22); Bilirubin Total 0.9 mg/dL (0.2-1.3); Blood Urea Nitrogen 12 mg/dL (9-20); Calcium 8.7 mg/dL (8.4-10.2); Carbon Dioxide 29 mmol/L (22-32); Chloride 109 mmol/L (98-107); Estimated Glomerular Filt Rate > 60.0 mL/min (>60); Globulin 2.4 g/dL (1.7-4.1); Glucose 154 mg/dL (80-110); HEMOLYSIS < 15 (0-50); Magnesium 1.7 mg/dL (1.6-2.3); Potassium 3.6 mmol/L (3.4-5.1); Sodium 139 mmol/L (137-145); Total Protein 5.7 g/dL (6.3-8.2)
--- NOTE | 2021-12-14 11:39 | P.CONS_ITS ---
History of Present Illness Consult details Date Patient Seen: 12/14/21 Chief complaint: uncontrolled bowel movements, last one was red Narrative: 75-year-old man admitted to the hospital with GI bleed and C diff. he has a complex infection of the upper extremities been on prolonged antibiotics and secondarily developed C diff. He is chronically anticoagulated with Eliquis secondary to atrial fibrillation. He has been having profuse diarrhea and yesterday had 1 bloody bowel movement was guaiac positive in the emergency room department. Hematocrit 29 admission baseline 37. Vital signs are within normal limits. He has had a previous colonoscopy within the past 3 years which was unremarkable per his report. No abdominal pain nausea vomiting hematemesis. No personal or family history of intestinal malignancy. No history of peptic ulcer disease. Meds Home Medications and Allergies Home Medications Medication Instructions Recorded Confirmed Type aspirin 81 mg tablet,delayed 2 tab PO DAILY 09/16/18 12/13/21 History release metoprolol tartrate 100 mg tablet See Rx Instructions .ROUTE 10/16/20 12/13/21 Rx .COMPLEX #180 tablet furosemide 20 mg tablet 20 mg PO QDAY #90 tab 10/20/20 12/13/21 Rx losartan 25 mg tablet 25 mg PO DAILY #90 tab 10/20/20 12/13/21 Rx pantoprazole 40 mg tablet,delayed 40 mg PO DAILY #90 tab 02/01/21 12/13/21 Rx release Syringes: 1cc Insulin Syringes #100 each 04/02/21 12/13/21 Rx with [place] apixaban 5 mg tablet 5 mg PO BID tab 08/22/21 12/13/21 History Liners, suspension sleeves, and #1 ea 09/11/21 12/13/21 Rx socks levothyroxine 175 mcg tablet 175 mcg PO DAILY #90 tab 10/01/21 12/13/21 Rx Glucose: Test Strips #250 ea 10/03/21 12/13/21 Rx rosuvastatin 20 mg tablet 20 mg PO BEDTIME #90 tab 10/12/21 12/13/21 Rx L.acidophilus-L.bulgar-B.bifid-S.thermoph 1 ea PO BID #120 tab 11/05/21 12/13/21 Rx 1 billion cell-250 mg tablet (Bacid) insulin human U-100 NPH-regulr 40 unit (0.4 mL) SUBCUT BIDAC #20 11/05/21 12/13/21 Rx 70-30 mix 100 unit/mL subcutaneous ml susp (Humulin 70/30 U-100 Insulin) tamsulosin 0.4 mg capsule 0.4 mg PO BEDTIME #90 cap 11/13/21 12/13/21 Rx Allergies Allergy/AdvReac Type Severity Reaction Status Date / Time cephalexin Allergy Severe Blister Verified 12/11/21 16:44 adhesive tape [ADHESIVE TAPE] AdvReac Mild PATIENT Verified 12/11/21 16:42 STATES IT PEELS HIS SKIN OFF lisinopril [LISINOPRIL] AdvReac Mild COUGH Verified 12/11/21 16:42 prochlorperazine AdvReac Unknown Verified 12/11/21 16:42 [PROCHLORPERAZINE] shellfish derived AdvReac Unknown Verified 12/11/21 16:42 [SHELLFISH DERIVED] Exam Vital Signs (past 8 hours): - 12/14/21 04:17 12/14/21 04:31 12/14/21 05:00 Temperature 98.6 F Pulse Rate 80 87 Respiratory Rate 18 17 Blood Pressure 127/74 Pulse Oximetry 97 96 97 12/14/21 08:14 12/14/21 09:40 Temperature Pulse Rate 85 Respiratory Rate 17 Blood Pressure 152/82 H Pulse Oximetry 94 99 Oxygen Delivery Method Room Air Oxygen Flow Rate 0 Narrative Exam Narrative: General elderly man alert oriented no acute distress Abdomen soft nontender nondistended. Extremities bilateral BKA Objective Labs Result Diagrams: 12/14/21 08:45 12/14/21 08:45 Labs: Laboratory Results - last 24 hr 12/13/21 12/13/21 12/13/21 18:20 18:20 18:20 WBC 5.3 RBC 3.57 L Hgb 9.8 L Hct 29.0 L MCV 81.2 MCH 27.6 MCHC 33.9 RDW 14.4 Plt Count 214 Neut % (Auto) 59.3 Lymph % (Auto) 28.4 [place] % (Auto) 9.8 Eos % (Auto) 2.1 Baso % (Auto) 0.4 Neut # (Auto) 3200 Lymph # (Auto) 1500 [place] # (Auto) 500 Eos # (Auto) 100 Baso # (Auto) 0 PT 17.6 H INR 1.6 H APTT Sodium 142 Potassium 3.4 Chloride 106 Carbon Dioxide 31 BUN 16 Creatinine 0.63 L Estimated GFR > 60.0 BUN/Creatinine Ratio 25.4 H Glucose 108 Calcium 8.8 Magnesium Total Bilirubin 0.7 AST 23 ALT 20 Alkaline Phosphatase 90 Total Protein 6.3 Albumin 3.6 Globulin 2.7 Albumin/Globulin Ratio 1.3 C. difficile Tox (PCR) SARS-CoV-2 (PCR) Blood Type Antibody Screen 12/13/21 12/13/21 12/13/21 18:20 18:20 19:05 WBC RBC Hgb Hct MCV MCH MCHC RDW Plt Count Neut % (Auto) Lymph % (Auto) [place] % (Auto) Eos % (Auto) Baso % (Auto) Neut # (Auto) Lymph # (Auto) [place] # (Auto) Eos # (Auto) Baso # (Auto) PT INR APTT Sodium Potassium Chloride Carbon Dioxide BUN Creatinine Estimated GFR BUN/Creatinine Ratio Glucose Calcium Magnesium 1.5 L Total Bilirubin AST ALT Alkaline Phosphatase Total Protein Albumin Globulin Albumin/Globulin Ratio C. difficile Tox (PCR) SARS-CoV-2 (PCR) Negative Blood Type O Positive Antibody Screen Negative 12/13/21 12/13/21 12/13/21 20:20 20:59 20:59 WBC RBC Hgb 9.6 L Hct 28.8 L MCV MCH MCHC RDW Plt Count Neut % (Auto) Lymph % (Auto) [place] % (Auto) Eos % (Auto) Baso % (Auto) Neut # (Auto) Lymph # (Auto) [place] # (Auto) Eos # (Auto) Baso # (Auto) PT INR APTT Sodium 142 Potassium 3.1 L Chloride 107 Carbon Dioxide 33 H BUN 14 Creatinine 0.61 L Estimated GFR > 60.0 BUN/Creatinine Ratio 23.0 H Glucose 77 L Calcium 8.9 Magnesium Total Bilirubin 0.7 AST 23 ALT 20 Alkaline Phosphatase 81 Total Protein 6.2 L Albumin 3.5 Globulin 2.7 Albumin/Globulin Ratio 1.3 C. difficile Tox (PCR) Positive for c. diff H SARS-CoV-2 (PCR) Blood Type Antibody Screen 12/14/21 12/14/21 12/14/21 08:45 08:45 08:45 WBC 5.8 RBC 3.58 L Hgb 9.6 L Hct 29.3 L MCV 81.7 MCH 26.9 MCHC 33.0 RDW 14.6 Plt Count 220 Neut % (Auto) 66.3 Lymph % (Auto) 21.3 L [place] % (Auto) 9.6 Eos % (Auto) 2.2 Baso % (Auto) 0.6 Neut # (Auto) 3900 Lymph # (Auto) 1200 [place] # (Auto) 600 Eos # (Auto) 100 Baso # (Auto) 0 PT 17.0 H INR 1.5 H APTT 35 Sodium 139 Potassium 3.6 Chloride 109 H Carbon Dioxide 29 BUN 12 Creatinine 0.59 L Estimated GFR > 60.0 BUN/Creatinine Ratio 20.3 Glucose 154 H Calcium 8.7 Magnesium 1.7 Total Bilirubin 0.9 AST 23 ALT 18 Alkaline Phosphatase 81 Total Protein 5.7 L Albumin 3.3 L Globulin 2.4 Albumin/Globulin Ratio 1.4 C. difficile Tox (PCR) SARS-CoV-2 (PCR) Blood Type Antibody Screen [facility] Medical History Atrial fibrillation (Unknown) Carotid artery disease (Unknown) Coronary artery disease (Unknown) Diabetes (Unknown) Diabetes, type 1.5, uncontrolled, managed as type 2 Erectile dysfunction (Unknown) GERD (gastroesophageal reflux disease) (Unknown) Hepatitis C (Unknown) Hx of drug abuse Hyperlipemia (Unknown) Hypertension (Unknown) Hypothyroidism (Unknown) Measles (Unknown) Myocardial infarct (10/17/06) Obstructive sleep apnea (Unknown) Peripheral vascular disease (Unknown) Sacral back pain Surgical History History of open reduction and internal fixation (ORIF) procedure (09/2010) History of penile implant Hx of cataract surgery (~2004) Hx of coronary artery bypass surgery (10/2006) S/P bilateral below knee amputation (Unknown) Family History Father Age: 86 Heart disease ETOH abuse Mother Age: 94 Heart disease Alzheimer's dementia without behavioral disturbance, Alzheimer's disease of unspecified onset Social History household members: spouse Tobacco & Substance Use Smoking Status: Never smoker alcohol intake: never substance use type: does not use Assessment & Plan Assessment & Plan narrative: 75-year-old man admitted to the hospital with C diff and GI bleed on Eliquis. Hemodynamically stable hematocrit 29. His colitis is the most likely source of the GI bleed exacerbated by Eliquis. The bleed is likely self limited. -Hold Eliquis -I would not recommend colonoscopy in the setting of colitis given the increased risk of colonic perforation. -Should he become unstable or have substantial continued bleeding can recon spring bender for colonoscopy. Time Spent With Patient Critical Care time: I spent a total of [] minutes of critical care time on this patient's care today; this time is exclusive of procedural time.
--- NOTE | 2021-12-14 11:46 | PC.NURSE ---
Addendum entered by Evelyne Travis R.N. 12/14/21 18:32: Patient has had several loose stools that are soft with some mucous, no blood seen. Color is brown. Patients dinner time blood sugar was 423, 8u of insulin given to patient. He has a good appetite. He denies pain and discomfort and is watching television. Original Note: Patient came in to the ER for bleeding in his stool. He also has cdiff. Patient is independent in getting himself up to use the bedside commode. He is a bilateral amputee, he wears his prosthetics bilaterally. Patient also uses a walker to ambulate. He denies pain at this time and is happy to be eating some food. He is also diabetic so we will be checking his blood sugars ac and hs with sliding scale coverage.
[2021-12-14] MEDS: INSULIN LISPRO 100 UNIT/ML 3ML VIAL SUBCUT ×3 (12:02→21:58)
--- NOTE | 2021-12-14 12:11 | P.PN_ITS ---
Subjective Subjective Interval history: Tulio Yi is a 75-year-old male with a history of insulin-dependent Type 2 diabetic, CAD s/p CABG, Portal HTN w/out esophageal varices, hep C- resolved, NSTEMI [place] 2005, GISSELLE, PAD, bilat BKA, Chronic atrial fibrillation rate controlled-chronic Eliquis, hypothyroidism, and remote Hx of IVDU (meth/heroin) who has had multiple hospitalizations, antibiotics & surgical interventions for Right hand cellulitis/abcess in the past year, presented to the ED this evening with a chief complaint of loose stool which was dark and tarry x1 at approximately 1730. He has had diarrhea on & off for the past month due to antibiotics. He complains of chronic worsening dizziness, weakness, and lightheadedness. He reports some bright red element to his stool at some point. He has taken some [id number] anti diarrheal and his loose stools have slowed but continued to be black. He denies chest pain, shortness of breath, abdominal pain, nausea, vomiting, fever, chills, or cough. Patient's vitals upon admit temp 98.7? mildly elevated BP 152/69, HR 92, RR 20, O2 saturation 99% on room air. Patient's hemoglobin 9.8/hematocrit 29. 11/07/2021 H/H 12.7/37.4. Platelets are normal, no white count, patient's chemistries all WNL with the exception of low creatinine 0.63 last recorded creatinine 11/09/2021 0.80 WNL. PT 17.6, INR 1.6. Occult blood in ED positive. C. Diff returned positive and he has been start on vancomycin orally. He continues to be without abdominal pain, nausea vomiting or fever. Exam Vital Signs (past 8 hours): - 12/14/21 04:17 12/14/21 04:31 12/14/21 05:00 Temperature 98.6 F Pulse Rate 80 87 Respiratory Rate 18 17 Blood Pressure 127/74 Pulse Oximetry 97 96 97 12/14/21 08:14 12/14/21 09:40 Temperature Pulse Rate 85 Respiratory Rate 17 Blood Pressure 152/82 H Pulse Oximetry 94 99 Oxygen Delivery Method Room Air Oxygen Flow Rate 0 Narrative Exam Narrative: General:? Patient is a W/D W/N pleasant male, who appears younger than stated age, in NAD. HEENT:? N/C A/T EOMI, oral pharynx is clear and mucous membranes are moist.? Neck is supple and symmetric, trachea is midline, no adenopathy, no thyroid enlargement, nontender, no masses palpated.? Negative for JVD Chest:? Normal AP diameter and contour without kyphoscoliosis, no nasal flaring, retractions, or tachypneic labored breathing Lungs:? Auscultation of all lung aguilar are clear coarse without adventitious sounds, wheezes, rhonchi, or rales. Cardio:? regular rate and rhythm without murmur, rubs, or gallops, no carotid bruit, no cardiac pulsations present. Abdomen:? Soft nontender, negative for organomegaly, or masses.? Bowel sounds are present in all 4 quadrants without guarding or rebound, no CVA tenderness. Musculoskeletal:? Muscle strength and tone are equal within normal limits, no deformity, crepitus, effusions, cyanosis, clubbing or edema present.? Full range of motion intact radial pulses are normal. Bilateral BK amputation. Skin:? Warm dry and intact without rashes, ulcerations or petechiae.? Neuro:? Alert and orientated x3,? sensation to touch intact, no gross deficits noted of cranial nerves. Psych:? Patient has a well-kept appearance, appropriate affect, mental status attitude thought context and judgment are appropriate for age. Objective Labs Result Diagrams: 12/14/21 08:45 12/14/21 08:45 Labs: Laboratory Results - last 24 hr 12/13/21 12/13/21 12/13/21 18:20 18:20 18:20 WBC 5.3 RBC 3.57 L Hgb 9.8 L Hct 29.0 L MCV 81.2 MCH 27.6 MCHC 33.9 RDW 14.4 Plt Count 214 Neut % (Auto) 59.3 Lymph % (Auto) 28.4 [place] % (Auto) 9.8 Eos % (Auto) 2.1 Baso % (Auto) 0.4 Neut # (Auto) 3200 Lymph # (Auto) 1500 [place] # (Auto) 500 Eos # (Auto) 100 Baso # (Auto) 0 PT 17.6 H INR 1.6 H APTT Sodium 142 Potassium 3.4 Chloride 106 Carbon Dioxide 31 BUN 16 Creatinine 0.63 L Estimated GFR > 60.0 BUN/Creatinine Ratio 25.4 H Glucose 108 Calcium 8.8 Magnesium Total Bilirubin 0.7 AST 23 ALT 20 Alkaline Phosphatase 90 Total Protein 6.3 Albumin 3.6 Globulin 2.7 Albumin/Globulin Ratio 1.3 C. difficile Tox (PCR) SARS-CoV-2 (PCR) Blood Type Antibody Screen 12/13/21 12/13/21 12/13/21 18:20 18:20 19:05 WBC RBC Hgb Hct MCV MCH MCHC RDW Plt Count Neut % (Auto) Lymph % (Auto) [place] % (Auto) Eos % (Auto) Baso % (Auto) Neut # (Auto) Lymph # (Auto) [place] # (Auto) Eos # (Auto) Baso # (Auto) PT INR APTT Sodium Potassium Chloride Carbon Dioxide BUN Creatinine Estimated GFR BUN/Creatinine Ratio Glucose Calcium Magnesium 1.5 L Total Bilirubin AST ALT Alkaline Phosphatase Total Protein Albumin Globulin Albumin/Globulin Ratio C. difficile Tox (PCR) SARS-CoV-2 (PCR) Negative Blood Type O Positive Antibody Screen Negative 12/13/21 12/13/21 12/13/21 20:20 20:59 20:59 WBC RBC Hgb 9.6 L Hct 28.8 L MCV MCH MCHC RDW Plt Count Neut % (Auto) Lymph % (Auto) [place] % (Auto) Eos % (Auto) Baso % (Auto) Neut # (Auto) Lymph # (Auto) [place] # (Auto) Eos # (Auto) Baso # (Auto) PT INR APTT Sodium 142 Potassium 3.1 L Chloride 107 Carbon Dioxide 33 H BUN 14 Creatinine 0.61 L Estimated GFR > 60.0 BUN/Creatinine Ratio 23.0 H Glucose 77 L Calcium 8.9 Magnesium Total Bilirubin 0.7 AST 23 ALT 20 Alkaline Phosphatase 81 Total Protein 6.2 L Albumin 3.5 Globulin 2.7 Albumin/Globulin Ratio 1.3 C. difficile Tox (PCR) Positive for c. diff H SARS-CoV-2 (PCR) Blood Type Antibody Screen 12/14/21 12/14/21 12/14/21 08:45 08:45 08:45 WBC 5.8 RBC 3.58 L Hgb 9.6 L Hct 29.3 L MCV 81.7 MCH 26.9 MCHC 33.0 RDW 14.6 Plt Count 220 Neut % (Auto) 66.3 Lymph % (Auto) 21.3 L [place] % (Auto) 9.6 Eos % (Auto) 2.2 Baso % (Auto) 0.6 Neut # (Auto) 3900 Lymph # (Auto) 1200 [place] # (Auto) 600 Eos # (Auto) 100 Baso # (Auto) 0 PT 17.0 H INR 1.5 H APTT 35 Sodium 139 Potassium 3.6 Chloride 109 H Carbon Dioxide 29 BUN 12 Creatinine 0.59 L Estimated GFR > 60.0 BUN/Creatinine Ratio 20.3 Glucose 154 H Calcium 8.7 Magnesium 1.7 Total Bilirubin 0.9 AST 23 ALT 18 Alkaline Phosphatase 81 Total Protein 5.7 L Albumin 3.3 L Globulin 2.4 Albumin/Globulin Ratio 1.4 C. difficile Tox (PCR) SARS-CoV-2 (PCR) Blood Type Antibody Screen [facility] Medical History Atrial fibrillation (Unknown) Carotid artery disease (Unknown) Coronary artery disease (Unknown) Diabetes (Unknown) Diabetes, type 1.5, uncontrolled, managed as type 2 Erectile dysfunction (Unknown) GERD (gastroesophageal reflux disease) (Unknown) Hepatitis C (Unknown) Hx of drug abuse Hyperlipemia (Unknown) Hypertension (Unknown) Hypothyroidism (Unknown) Measles (Unknown) Myocardial infarct (10/17/06) Obstructive sleep apnea (Unknown) Peripheral vascular disease (Unknown) Sacral back pain Surgical History History of open reduction and internal fixation (ORIF) procedure (09/2010) History of penile implant Hx of cataract surgery (~2004) Hx of coronary artery bypass surgery (10/2006) S/P bilateral below knee amputation (Unknown) Family History Father Age: 86 Heart disease ETOH abuse Mother Age: 94 Heart disease Alzheimer's dementia without behavioral disturbance, Alzheimer's disease of unspecified onset Social History household members: spouse Smoking Status: Never smoker alcohol intake: never substance use type: does not use Assessment & Plan Assessment & Plan narrative: 1. Lower GI bleed, acute, with diarrhea, acute present on admission on chronic Eliquis -Hemoglobin 9.8/hematocrit 29. 11/07/2021: H/H 12.7/37.4. -General surgery Dr. Curiel has been consulted -NPO -80 mg IV Protonix one time dose, followed by 40 mg IV b.i.d. -C diff + -H pylori/stool culture: pending -Monitor H&H, electrolytes. 2. History of right hand cellulitis/Abcess, not present on admission -Managed by [facility]/Dr. Montero/Dr. Guevara -[facility] hospitalization 22,021, 1221-12 03/06/2021 -[facility] 11/18/2021 to 12/04/2021: Postop right hand infection, syncope, epistaxis, leukocytosis, COVID-19 infection, lactic acidosis. - I&D by Dr. Guevara at [facility] on November 06, 2021 3. Insulin-dependent type 2, chronic, poorly controlled, related hyperlipidemia, chronic, present on admission - 11/03/2021: A1C 8.2% - Hold 70/30 bid, until no longer NPO -DM protocol, monitor for hypoglycemia -blood sugar checks q.6 hours while NPO, change to ACHS BS check once no longer NPO - sliding scale insulin lispro ordered for coverage - Carb control diet once no longer NPO -hold rosuvastatin while NPO. 4. Chronic Atrial fibrillation, currently rate controlled, chronic Eliquis, with RBBB, chronic, present on admission - Hold apixaban- GI bleed - continue metoprolol- give with sips while NPO 5. Essential hypertension, portal hypertension without esophageal varices, with a history of NSTEMI 2006, acute on chronic, present on admission -continue losartan and metoprolol -last echo 2019 EF 50-55%- echo and cardiology notes Dr. Templeton Cardiology have been reviewed 6. CAD status post CABG, chronic, with PAD, chronic, present on admission -Holding eliquis & ASA- due to GI bleed -Managed by Cardiology Dr. Templeton 7. Hypothyroidism, acquired, chronic, present on admission -hold levothyroxine while NPO 8. IVDU, meth and heroin, acute on chronic, present on admission -patient endorsed in recent hospitalizations and medical appointments to current usage, and a desire to cease. -patient education regarding the cessation of substance abuse. 9. History of positive COVID-19 infection, acute, no tpresent on admission -patient was found to be positive for COVID-19 on admission to [facility] on 11/18/2001 -patient is asymptomatic today -COVID is negative today Code status:Full Surrogate decision maker: Mary Beth DIAZ PCR:Negative COVID vaccination: Unknown DVT/VTE prophylaxis:Hold medication due to GI Bleed, NO Scd's -Bilateral BK amputee Disposition: home Time Spent With Patient Critical Care time: I spent a total of [] minutes of critical care time on this patient's care today; this time is exclusive of procedural time. Quality VTE Deep Vein Thrombosis/Pulmonary Embolism Present on Admission: No
--- NOTE | 2021-12-14 16:24 | CM.DANOTE ---
DCP Assessment: Patient is a 75 yr old male who was admitted for GI bleed and possible C-diff. CM met with patient and explained role. Patient is a readmit was here at the end of Dec for a hand cellulitis and needed IV abx. 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 patient states he is just feeling so weak and just wants to feel better. Patient states he does not drive at baseline but is completely independent with all ADLs. patient does use a FWW at his baseline since he is a longtime double leg amputee. Patient stated he would like services to gain strength when he gets home since he is feeling so weak. Patient has no preference to which HH company. This week it is [facility]. Clinical will be sent and CM department will follow up with company to get patient ready for DC. I: medicare and self pay Plan: DC home with [facility] when medically stable- will need referral made to [facility] and F2F to be completed. Nolvia bender RNmanager database administration Discharge Planning/Care Management Discharge Assessment Start: 12/14/21 16:20 Freq: Status: Active Protocol: Document 12/14/21 16:21 HS (Rec: 12/14/21 16:24 HS [id number]) Discharge Planning Assessment Assigned Utility Arborist Nolvia Bender RNmarketing rep DPOA/Assigned Designee Name Kathie Yi- Contact Information [phone] Advance Directives? Yes Advance Directives on File No History Provided By Patient,Medical Record Has Patient been admitted in last 30 Yes days? Comment Last admission 11/06/2021 Prior Living Arrangements House Household Members spouse Type of transporation used prior to Relies on Others admit Independent with ADL's Yes Is patient alert and oriented? Yes Caregiver for Another No DME Already Rented / Owned FWW / Walker Patient/Family Preference Home with Home Health Comment Patient wants HH services at DC Barriers to Discharge No Discharge Plan Home Transportation Arrangement Likely friend to transport as spouse has some of her own medial needs currently Referrals Initiated Home Health Additional Comment Wants HH services doesnt have a preference on HH company will need F2F completed If patient plan is home with home health No : Has signed face to face form been completed? Medicare Choice List Provided Yes SNF/HH Preference No preference will use [facility] for this week [facility] Review Status In Process Next Review Type Continued Stay Review
--- NOTE | 2021-12-14 18:13 | PC.NURSE ---
RN notified of High CBG
[2021-12-14] MEDS: INSULIN NPH/REG 70-30 100 UNIT/ML 3ML VIAL 40 UNIT SUBCUT (21:56)
[2021-12-15] VITALS (12 sets, daily range): BP systolic 131–159; BP diastolic 45–82; PULSE 87–94; RESP 16–20; TEMP 36.6–37.5; O2SAT 95–98
[2021-12-15] MEDS: VANCOMYCIN 125 MG CAPSULE PO ×5 (00:14→23:57)
[2021-12-15 05:26] LABS: Add Manual Diff / Slide Review NO; Basophils Absolute Auto 0 /uL (0-100); Basophils Percent Auto 0.6 % (0-2); Eosinophils Absolute Auto 200 /uL (0-450); Eosinophils Percent Auto 2.4 % (2-4); Hematocrit 30.7 % (41-53); Hemoglobin 10.3 g/dL (13.5-17.5); Lymphocytes Absolute Auto 1700 /uL (1100-4500); Lymphocytes Percent Auto 24.4 % (25-40); Mean Corpuscular HGB Conc 33.6 % (30-36); Mean Corpuscular Hemoglobin 27.3 PG (26-34); Mean Corpuscular Volume 81.1 fL (80-100); Monocytes Absolute Auto 700 /uL (0-900); Monocytes Percent Auto 10.7 % (3-14); Neutrophils Absolute Auto 4300 /uL (1500-7000); Neutrophils Percent Auto 61.9 % (50-75); Platelet Count 226 X10^3/uL (150-400); Red Blood Cell Count 3.78 X10^6/uL (4.5-5.9); White Blood Cell Count 6.9 X10^3/uL (4.5-11.0)
[2021-12-15 05:44] LABS: Alanine Aminotransferase 19 IU/L (<50); Albumin 3.7 g/dL (3.5-5.0); Albumin Globulin Ratio 1.4 (1.0-2.8); Alkaline Phosphatase 89 U/L (38-126); Aspartate Aminotransferase 23 IU/L (17-59); BUN Creatinine Ratio 18.4 (6-22); Bilirubin Total 0.8 mg/dL (0.2-1.3); Blood Urea Nitrogen 14 mg/dL (9-20); Calcium 9.2 mg/dL (8.4-10.2); Carbon Dioxide 31 mmol/L (22-32); Chloride 105 mmol/L (98-107); Estimated Glomerular Filt Rate > 60.0 mL/min (>60); Globulin 2.6 g/dL (1.7-4.1); Glucose 100 mg/dL (80-110); HEMOLYSIS < 15 (0-50); Magnesium 1.7 mg/dL (1.6-2.3); Potassium 3.6 mmol/L (3.4-5.1); Sodium 138 mmol/L (137-145); Total Protein 6.3 g/dL (6.3-8.2)
[2021-12-15] MEDS: PANTOPRAZOLE 40 MG VIAL IV (08:01)
[2021-12-15] MEDS: LOSARTAN 25 MG TABLET PO (08:01)
[2021-12-15] MEDS: METOPROLOL IR 50 MG TABLET 100 MG PO ×2 (08:01→22:33)
[2021-12-15] MEDS: SODIUM CHLORIDE 0.9% FLUSH 10 ML IV ×2 (08:05→22:34)
--- NOTE | 2021-12-15 11:00 | PC.NURSE ---
Per Dr Jazmin DC scd order and order for heparin SQ BID taken, patients H/H stable per .
--- NOTE | 2021-12-15 11:30 | PM.PN.1 ---
Subjective Subjective Interval history: Tulio Yi is a 75-year-old male with a history of insulin-dependent Type 2 diabetic, CAD s/p CABG, Portal HTN w/out esophageal varices, hep C-resolved, NSTEMI [place] 2005, GISSELLE, PAD, bilat BKA, Chronic atrial fibrillation rate controlled-chronic Eliquis, hypothyroidism, and remote Hx of IVDU (meth/heroin) who has had multiple hospitalizations, antibiotics & surgical interventions for Right hand cellulitis/abcess in the past year, presented to the ED this evening with a chief complaint of loose stool which was dark and tarry x1 at approximately 1730.? He has had diarrhea on & off for the past month due to antibiotics. He complains of chronic worsening dizziness, weakness, and lightheadedness. He reports some bright red element to his stool at some point. He has taken some vrjm-uqg-coalfuf anti diarrheal and his loose stools have slowed but continued to be black.? He denies chest pain, shortness of breath, abdominal pain, nausea, vomiting, fever, chills, or cough. Patient's vitals upon admit temp 98.7? mildly elevated BP 152/69, HR 92, RR 20, O2 saturation 99% on room air.? Patient's hemoglobin 9.8/hematocrit 29.? 11/07/2021 H/H 12.7/37.4.? Platelets are normal, no white count, patient's chemistries all WNL with the exception of low creatinine 0.63 last recorded creatinine 11/09/2021 0.80 WNL.? PT 17.6, INR 1.6.? Occult blood in ED positive. C. Diff returned positive and? he has been start on vancomycin orally. ? 12/14 He continues to be without? abdominal pain, nausea vomiting or fever. 12/15 continues to have watery to loose bowel movements. States that the frequency has decreased. He continues to be with abdominal pain nausea or vomiting. He remains afebrile and his vital signs are stable. Exam Vital Signs (past 8 hours): - 12/15/21 06:00 12/15/21 07:50 12/15/21 09:49 Temperature 97.8 F Pulse Rate 94 H 91 H Respiratory Rate 18 19 Blood Pressure 138/81 131/74 Pulse Oximetry 98 96 96 Oxygen Delivery Method Room Air Oxygen Flow Rate 0 Narrative Exam Narrative: General:? Patient is a W/D W/N pleasant male, who appears younger than stated age, in NAD. HEENT:? N/C A/T EOMI, oral pharynx is clear and mucous membranes are moist.? Neck is supple and symmetric, trachea is midline, no adenopathy, no thyroid enlargement, nontender, no masses palpated.? Negative for JVD Chest:? Normal AP diameter and contour without kyphoscoliosis, no nasal flaring, retractions, or tachypneic labored breathing Lungs:? Auscultation of all lung aguilar are clear coarse without adventitious sounds, wheezes, rhonchi, or rales. Cardio:? regular rate and rhythm without murmur, rubs, or gallops, no carotid bruit, no cardiac pulsations present. Abdomen:? Soft nontender, negative for organomegaly, or masses.? Bowel sounds are present. No guarding or rebound, no CVA tenderness. Musculoskeletal:? Bilateral BKA Skin:? Warm dry and intact without rashes, ulcerations or petechiae.? Neuro:? Alert and orientated x3,? sensation to touch intact, no gross deficits noted of cranial nerves. Psych:? Patient has a well-kept appearance, appropriate affect, mental status attitude thought context and judgment are appropriate for age. Objective Labs Result Diagrams: 12/15/21 05:05 12/15/21 05:05 Labs: Laboratory Results - last 24 hr 12/15/21 12/15/21 05:05 05:05 WBC 6.9 RBC 3.78 L Hgb 10.3 L Hct 30.7 L MCV 81.1 MCH 27.3 MCHC 33.6 RDW 15.0 H Plt Count 226 Neut % (Auto) 61.9 Lymph % (Auto) 24.4 L [place] % (Auto) 10.7 Eos % (Auto) 2.4 Baso % (Auto) 0.6 Neut # (Auto) 4300 Lymph # (Auto) 1700 [place] # (Auto) 700 Eos # (Auto) 200 Baso # (Auto) 0 Sodium 138 Potassium 3.6 Chloride 105 Carbon Dioxide 31 BUN 14 Creatinine 0.76 Estimated GFR > 60.0 BUN/Creatinine Ratio 18.4 Glucose 100 Calcium 9.2 Magnesium 1.7 Total Bilirubin 0.8 AST 23 ALT 19 Alkaline Phosphatase 89 Total Protein 6.3 Albumin 3.7 Globulin 2.6 Albumin/Globulin Ratio 1.4 [facility] Medical History Atrial fibrillation (Unknown) Carotid artery disease (Unknown) Coronary artery disease (Unknown) Diabetes (Unknown) Diabetes, type 1.5, uncontrolled, managed as type 2 Erectile dysfunction (Unknown) GERD (gastroesophageal reflux disease) (Unknown) Hepatitis C (Unknown) Hx of drug abuse Hyperlipemia (Unknown) Hypertension (Unknown) Hypothyroidism (Unknown) Measles (Unknown) Myocardial infarct (10/17/06) Obstructive sleep apnea (Unknown) Peripheral vascular disease (Unknown) Sacral back pain Surgical History History of open reduction and internal fixation (ORIF) procedure (09/2010) History of penile implant Hx of cataract surgery (~2004) Hx of coronary artery bypass surgery (10/2006) S/P bilateral below knee amputation (Unknown) Family History Father Age: 86 Heart disease ETOH abuse Mother Age: 94 Heart disease Alzheimer's dementia without behavioral disturbance, Alzheimer's disease of unspecified onset Social History household members: spouse Smoking Status: Never smoker alcohol intake: never substance use type: does not use Assessment & Plan Assessment & Plan narrative: 1. Lower GI bleed, acute, with diarrhea, acute present on admission on chronic Eliquis ?- probably evidence of bleeding secondary to being on Eliquis and his C diff colitis -General surgery Dr. Curiel has seen and agrees with this assessment ? Dr Curiel does not recommend colonoscopy in the setting of colitis given the increased risk of colonic perforation. - H&H has remained will -DC protonix 40 mg IV b.i.d. - H pylori serology is pending 2. C diff colitis -stool culture: mixed fecal jaya - vancomycin 125 mg p.o. q.6h - start Questran 4 g p.o. t.i.d. -Monitor H&H, electrolytes. 2. History of right hand cellulitis/Abcess, not present on admission -Managed by [facility]/Dr. Montero/Dr. Guevara -[facility] hospitalization 22,021, 1221-12 03/06/2021 -[facility] 11/18/2021 to 12/04/2021:? Postop right hand infection, syncope, epistaxis, leukocytosis, COVID-19 infection, lactic acidosis. - I&D by Dr. Guevara at [facility] on November 06, 2021 ? 3. Insulin-dependent type 2, chronic, poorly controlled, related hyperlipidemia, chronic, present on admission - 11/03/2021: A1C 8.2% - 70/30 bid -DM protocol, monitor for hypoglycemia - ACHS BS - sliding scale insulin lispro ordered for coverage - Carb contro 4. Chronic Atrial fibrillation, currently rate controlled, with RBBB, chronic, present on admission chronic Eliquis, - Hold apixaban- GI bleed - continue metoprolol 5. Essential hypertension, portal hypertension without esophageal varices, acute on chronic, present on admission -continue losartan and metoprolol -last echo 2018 EF 50-55%-? echo and cardiology notes Dr. Templeton Cardiology have been reviewed 6. CAD h/o NSTEMI 2006 status post CABG, chronic, chronic, present on admission -Holding eliquis & ASA- due to GI bleed -Managed by Cardiology Dr. Templeton 7. PAD - S/P BILATERAL BKA 8. Hypothyroidism, acquired, chronic, present on admission - TSH -continue levothyroxine 9. IVDU, meth and heroin, acute on chronic, present on admission -patient endorsed in recent hospitalizations and medical appointments to current usage, and a desire to cease. -patient education regarding the cessation of substance abuse. 10.. History of positive COVID-19 infection, acute, no present on admission -patient was found to be positive for COVID-19 on admission to [facility] on 11/18/2001 -patient is asymptomatic today -COVID is negative today Code status:Full Surrogate decision maker: Mary Beth DIAZ PCR:Negative Time Spent With Patient Critical Care time: I spent a total of [] minutes of critical care time on this patient's care today; this time is exclusive of procedural time. Quality VTE Deep Vein Thrombosis/Pulmonary Embolism Present on Admission: No
[2021-12-15] MEDS: CHOLESTYRAMINE/ASPARTAME 4 GM PACK PO ×3 (11:56→22:33)
[2021-12-15] MEDS: INSULIN LISPRO 100 UNIT/ML 3ML VIAL SUBCUT ×3 (11:58→22:36)
[2021-12-15] MEDS: LACTOBACILLUS ACIDOPHILUS TABLET 1 EACH PO ×2 (12:03→22:33)
[2021-12-15] MEDS: PANTOPRAZOLE DR 40 MG TABLET PO (12:03)
[2021-12-15 15:42] LABS: C difficie Toxins A and B, EIA Positive (Negative)
--- NOTE | 2021-12-15 15:49 | CM.DPC ---
DCP Cont: Was going to meet with patient today, but he is on precautions for C-diff. 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 He does not drive, and uses a FWW for use, since he is a double amputee. Patient is interested in Home Health with no preferences upon agencies. It is [facility] on the calendar for today, and will be [facility] starting tomorrow. He lives in [place], so he should be able to use [facility], but will depend upon how soon he needs home health. P: DCP to continue to check in for any needs. At this time, plan is home with home health. Patricia Cornell RN/[employer] Slitting Machine Operator
[2021-12-15] MEDS: INSULIN NPH/REG 70-30 100 UNIT/ML 3ML VIAL 40 UNIT SUBCUT ×2 (16:37→22:36)
[2021-12-15 16:56] LABS: TSH w/ Reflex to FT4 0.16 uIU/mL (0.47-4.68)
[2021-12-15 17:35] LABS: Free T4, Direct Thyroxine 1.49 ng/dL (0.78-2.19)
[2021-12-15] MEDS: ATORVASTATIN 20 MG TABLET 40 MG PO (22:34)
[2021-12-15] MEDS: TAMSULOSIN 0.4 MG CAPSULE PO (22:34)
[2021-12-15] MEDS: HEPARIN 5,000 UNIT/ML VIAL 5000 UNIT SUBCUT (22:34)
[2021-12-16 01:57] VITALS: BP 130/65; PULSE 76; RESP 18; TEMP 36.8; O2SAT 97
--- NOTE | 2021-12-16 04:09 | PC.NURSE ---
Pt blood sugar tonight dropped to 26, pt was awake and talking, Pt refused iv dextrose, instead he had 2 orange juice and 2 sandwiches, blood glucose when up to 108 after that.
[2021-12-16 05:58] LABS: Add Manual Diff / Slide Review NO; Basophils Absolute Auto 0 /uL (0-100); Basophils Percent Auto 0.5 % (0-2); Eosinophils Absolute Auto 100 /uL (0-450); Eosinophils Percent Auto 1.6 % (2-4); Hematocrit 29.6 % (41-53); Lymphocytes Absolute Auto 1200 /uL (1100-4500); Lymphocytes Percent Auto 19.2 % (25-40); Mean Corpuscular HGB Conc 33.9 % (30-36); Mean Corpuscular Hemoglobin 27.6 PG (26-34); Mean Corpuscular Volume 81.4 fL (80-100); Monocytes Absolute Auto 700 /uL (0-900); Monocytes Percent Auto 12.4 % (3-14); Neutrophils Absolute Auto 4000 /uL (1500-7000); Neutrophils Percent Auto 66.3 % (50-75); Platelet Count 216 X10^3/uL (150-400); Red Blood Cell Count 3.64 X10^6/uL (4.5-5.9); Red Cell Distribution Width 14.5 % (11.6-14.8)
[2021-12-16 06:06] LABS: Alanine Aminotransferase 15 IU/L (<50); Albumin 3.5 g/dL (3.5-5.0); Albumin Globulin Ratio 1.3 (1.0-2.8); Alkaline Phosphatase 91 U/L (38-126); Aspartate Aminotransferase 19 IU/L (17-59); BUN Creatinine Ratio 18.8 (6-22); Bilirubin Total 0.7 mg/dL (0.2-1.3); Blood Urea Nitrogen 13 mg/dL (9-20); Calcium 9.2 mg/dL (8.4-10.2); Carbon Dioxide 31 mmol/L (22-32); Chloride 106 mmol/L (98-107); Estimated Glomerular Filt Rate > 60.0 mL/min (>60); Globulin 2.7 g/dL (1.7-4.1); Glucose 112 mg/dL (80-110); HEMOLYSIS < 15 (0-50); Magnesium 1.7 mg/dL (1.6-2.3); Potassium 3.6 mmol/L (3.4-5.1); Sodium 139 mmol/L (137-145); Total Protein 6.2 g/dL (6.3-8.2)
[2021-12-16] MEDS: LEVOTHYROXINE 75 MCG TABLET PO (06:20)
[2021-12-16] MEDS: LEVOTHYROXINE 100 MCG TABLET PO (06:20)
[2021-12-16] MEDS: VANCOMYCIN 125 MG CAPSULE PO ×4 (06:20→22:03)
[2021-12-16 07:50] VITALS: BP 134/54; PULSE 103; RESP 20; TEMP 36.6; O2SAT 95
[2021-12-16] MEDS: PANTOPRAZOLE DR 40 MG TABLET PO (08:20)
[2021-12-16] MEDS: HEPARIN 5,000 UNIT/ML VIAL 5000 UNIT SUBCUT ×2 (08:20→21:45)
[2021-12-16] MEDS: FUROSEMIDE 20 MG TABLET PO (08:20)
[2021-12-16] MEDS: CHOLESTYRAMINE/ASPARTAME 4 GM PACK PO ×4 (08:20→21:46)
[2021-12-16] MEDS: LOSARTAN 25 MG TABLET PO (08:20)
[2021-12-16] MEDS: LACTOBACILLUS ACIDOPHILUS TABLET 1 EACH PO ×2 (08:20→21:46)
[2021-12-16] MEDS: METOPROLOL IR 50 MG TABLET 100 MG PO ×2 (08:21→21:46)
[2021-12-16] MEDS: INSULIN LISPRO 100 UNIT/ML 3ML VIAL SUBCUT ×3 (08:22→17:17)
[2021-12-16] MEDS: SODIUM CHLORIDE 0.9% FLUSH 10 ML IV ×2 (08:22→22:03)
[2021-12-16 08:58] VITALS: O2SAT 97
--- NOTE | 2021-12-16 11:29 | PM.PN.1 ---
Subjective Subjective Interval history: Tulio Yi is a 75-year-old male with a history of insulin-dependent Type 2 diabetic, CAD s/p CABG, Portal HTN w/out esophageal varices, hep C-resolved, NSTEMI PA 2005, GISSELLE, PAD, bilat BKA, Chronic atrial fibrillation rate controlled-chronic Eliquis, hypothyroidism, and remote Hx of IVDU (meth/heroin) who has had multiple hospitalizations, antibiotics & surgical interventions for Right hand cellulitis/abcess in the past year, presented to the ED this evening with a chief complaint of loose stool which was dark and tarry x1 at approximately 1730.? He has had diarrhea on & off for the past month due to antibiotics. He complains of chronic worsening dizziness, weakness, and lightheadedness. He reports some bright red element to his stool at some point. He has taken some [id number] anti diarrheal and his loose stools have slowed but continued to be black.? He denies chest pain, shortness of breath, abdominal pain, nausea, vomiting, fever, chills, or cough. Patient's vitals upon admit temp 98.7? mildly elevated BP 152/69, HR 92, RR 20, O2 saturation 99% on room air.? Patient's hemoglobin 9.8/hematocrit 29.? 11/07/2021 H/H 12.7/37.4.? Platelets are normal, no white count, patient's chemistries all WNL with the exception of low creatinine 0.63 last recorded creatinine 11/09/2021 0.80 WNL.? PT 17.6, INR 1.6.? Occult blood in ED positive. C. Diff returned positive and? he has been start on vancomycin orally. ? 12/14 He continues to be without? abdominal pain, nausea vomiting or fever. 12/15 ?continues to have watery to loose bowel movements.? States that the frequency has decreased.? He continues to be with abdominal pain nausea or vomiting.? He remains afebrile and his vital signs are stable. 12/16 patient continues to have watery bowel movements. However he states that it is slightly less since being placed on the Questran. Occasionally he has a crampy discomfort not severe. He has no nausea vomiting, lightheadedness, dizziness Exam Vital Signs (past 8 hours): - 12/16/21 07:50 12/16/21 08:58 Temperature 97.9 F Pulse Rate 103 H Respiratory Rate 20 Blood Pressure 134/54 L Pulse Oximetry 95 97 Oxygen Delivery Method Room Air Oxygen Flow Rate 0 Narrative Exam Narrative: General:? Patient is a W/D W/N pleasant male, who appears younger than stated age, in NAD. HEENT:? N/C A/T EOMI, oral pharynx is clear and mucous membranes are moist.? Neck is supple and symmetric, trachea is midline, no adenopathy, no thyroid enlargement, nontender, no masses palpated.? Negative for JVD Chest:? Normal AP diameter and contour without kyphoscoliosis, no nasal flaring, retractions, or tachypneic labored breathing Lungs:? Auscultation of all lung aguilar are clear coarse without adventitious sounds, wheezes, rhonchi, or rales. Cardio:? regular rate and rhythm without murmur, rubs, or gallops, no carotid bruit, no cardiac pulsations present. Abdomen:? Soft nontender, negative for organomegaly, or masses.? Bowel sounds are present. No guarding or rebound, no CVA tenderness. Musculoskeletal:?? Bilateral BKA Skin:? Warm dry and intact without rashes, ulcerations or petechiae.? Neuro:? Alert and orientated x3,? sensation to touch intact, no gross deficits noted of cranial nerves. Psych:? Patient has a well-kept appearance, appropriate affect, mental status attitude thought context and judgment are appropriate for age. Objective Labs Result Diagrams: 12/16/21 05:40 12/16/21 05:40 Labs: Laboratory Results - last 24 hr 12/13/21 12/15/21 12/16/21 20:20 05:05 05:40 WBC 6.0 RBC 3.64 L Hgb 10.0 L Hct 29.6 L MCV 81.4 MCH 27.6 MCHC 33.9 RDW 14.5 Plt Count 216 Neut % (Auto) 66.3 Lymph % (Auto) 19.2 L [place] % (Auto) 12.4 Eos % (Auto) 1.6 L Baso % (Auto) 0.5 Neut # (Auto) 4000 Lymph # (Auto) 1200 [place] # (Auto) 700 Eos # (Auto) 100 Baso # (Auto) 0 Sodium Potassium Chloride Carbon Dioxide BUN Creatinine Estimated GFR BUN/Creatinine Ratio Glucose Calcium Magnesium Total Bilirubin AST ALT Alkaline Phosphatase Total Protein Albumin Globulin Albumin/Globulin Ratio TSH 0.16 L Free T4 1.49 C. diff Toxin A&B (EIA) Positive A 12/16/21 05:40 WBC RBC Hgb Hct MCV MCH MCHC RDW Plt Count Neut % (Auto) Lymph % (Auto) [place] % (Auto) Eos % (Auto) Baso % (Auto) Neut # (Auto) Lymph # (Auto) [place] # (Auto) Eos # (Auto) Baso # (Auto) Sodium 139 Potassium 3.6 Chloride 106 Carbon Dioxide 31 BUN 13 Creatinine 0.69 Estimated GFR > 60.0 BUN/Creatinine Ratio 18.8 Glucose 112 H Calcium 9.2 Magnesium 1.7 Total Bilirubin 0.7 AST 19 ALT 15 Alkaline Phosphatase 91 Total Protein 6.2 L Albumin 3.5 Globulin 2.7 Albumin/Globulin Ratio 1.3 TSH Free T4 C. diff Toxin A&B (EIA) [facility] Medical History Atrial fibrillation (Unknown) Carotid artery disease (Unknown) Coronary artery disease (Unknown) Diabetes (Unknown) Diabetes, type 1.5, uncontrolled, managed as type 2 Erectile dysfunction (Unknown) GERD (gastroesophageal reflux disease) (Unknown) Hepatitis C (Unknown) Hx of drug abuse Hyperlipemia (Unknown) Hypertension (Unknown) Hypothyroidism (Unknown) Measles (Unknown) Myocardial infarct (10/17/06) Obstructive sleep apnea (Unknown) Peripheral vascular disease (Unknown) Sacral back pain Surgical History History of open reduction and internal fixation (ORIF) procedure (09/2010) History of penile implant Hx of cataract surgery (~2004) Hx of coronary artery bypass surgery (10/2006) S/P bilateral below knee amputation (Unknown) Family History Father Age: 86 Heart disease ETOH abuse Mother Age: 94 Heart disease Alzheimer's dementia without behavioral disturbance, Alzheimer's disease of unspecified onset Social History household members: spouse Smoking Status: Never smoker alcohol intake: never substance use type: does not use Assessment & Plan Assessment & Plan narrative: 1. Lower GI bleed, acute, with diarrhea, acute present on admission on chronic Eliquis ?-? probably evidence of bleeding secondary to being on Eliquis and his C diff colitis -General surgery Dr. Curiel has seen and agrees with this assessment ? Dr Curiel does not recommend colonoscopy in the setting of colitis given the increased risk of colonic perforation. - H&H has remained will -DC protonix 40 mg IV b.i.d. - H pylori serology is pending 2. Acute blood loss anemia. -Hemoglobin dropped from 12.7/o37.4 on 11/07/2021to 9.6/28.6. - As stated above is felt that his blood loss is related to combination of Eliquis and C diff colitis - since 06/2022 his H&H has remained stable and today it is 10.0/29.6 2.? C diff? colitis -stool culture:? mixed? fecal jaya - vancomycin 125 mg p.o. q.6h - Questran 4 g p.o. t.i.d. to q.i.d. because of his ongoing significant Tona -Monitor H&H, electrolytes. 2. History of right hand cellulitis/Abcess, not present on admission -Managed by [facility] Infectious Disease/Dr. Montero/Dr. Guevara -[facility] hospitalization 11 03- 22,021, 1221-12 03/06/2021 -[facility] hospitalization 11/18/2021 to 12/04/2021:? Postop right hand infection, syncope, epistaxis, leukocytosis, COVID-19 infection, lactic acidosis. - I&D by Dr. Guevara at [facility] on November 06, 2021 ? 3. Insulin-dependent type 2, chronic, poorly controlled, related hyperlipidemia, chronic, present on admission - 11/03/2021: A1C 8.2% - this morning blood sugars dropped to 26 at 3:00 a.m.. Since taking food it improved to 108 and at 8:00 a.m. this morning it was 173 - DC 70/30 bid - continue sliding scale insulin lispro ordered for coverage -DM protocol, continue to monitor formonitor for hypoglycemia - Carb contro 4. Chronic Atrial fibrillation, currently rate controlled, with RBBB, chronic, present on admission chronic Eliquis, - Holding Eliquis b/o GI bleed - continue metoprolol 5. Essential hypertension, portal hypertension without esophageal varices, acute on chronic, present on admission -continue losartan and metoprolol -last echo 2018 EF 50-55%-? echo and cardiology notes Dr. Templeton [facility] have been reviewed 6. CAD h/o NSTEMI 2006 status post CABG, chronic, chronic, present on admission -Holding eliquis & ASA 2/2GI bleed -Managed by Cardiology Dr. Templeton 7. PAD - S/P? BILATERAL BKA 8. Hypothyroidism, acquired, chronic, present on admission - TSH -continue levothyroxine 9. IVDU, meth and heroin, acute on chronic, present on admission -patient endorsed in recent hospitalizations and medical appointments to current usage, and a desire to cease. -patient education regarding the cessation of substance abuse. 10.. History of positive COVID-19 infection, acute -no present active infection on admission -patient was found to be positive for COVID-19 on admission to [facility] on 11/18/2001 -patient is asymptomatic today -COVID is negative 12/13/2021 Code status:Full Surrogate decision maker: Mary Beth COVID PCR:Negative Time Spent With Patient Critical Care time: I spent a total of [] minutes of critical care time on this patient's care today; this time is exclusive of procedural time. Quality VTE Deep Vein Thrombosis/Pulmonary Embolism Present on Admission: No
[2021-12-16 12:16] VITALS: O2SAT 96
[2021-12-16 15:00] VITALS: BP 159/59; PULSE 93; RESP 18; TEMP 36.6; O2SAT 98
[2021-12-16] MEDS: INSULIN NPH/REG 70-30 100 UNIT/ML 3ML VIAL 40 UNIT SUBCUT (17:20)
--- NOTE | 2021-12-16 17:51 | PC.NURSE ---
Patient had two small formed bm's this shift. Denies pain. Patient concerned about elevated blood sugars of 173,277 and 284. Patient's 70/30 insulin was discontinued this morning because of patients low blood glucose over night. Dr Kidd notified of patients concern, order taken to give 30 units humulin 70/30 with dinner. Patient agreeable to MD order.
[2021-12-16 21:30] VITALS: BP 141/49; PULSE 90; RESP 18; TEMP 36.1; O2SAT 97
[2021-12-16] MEDS: TAMSULOSIN 0.4 MG CAPSULE PO (21:45)
[2021-12-16] MEDS: ATORVASTATIN 20 MG TABLET 40 MG PO (21:45)
[2021-12-17] VITALS (8 sets, daily range): BP systolic 110–140; BP diastolic 47–80; PULSE 89–98; RESP 18; TEMP 36.7–37; O2SAT 95–97
--- NOTE | 2021-12-17 02:26 | PC.NURSE ---
Pt c/o of feeling dizzy, blood sugar was doen 242, v/s were taken b/p 130/63, hr 97, temp 98.5, resp 16, sats 96%, pt was advise to call the nurse when ever he needs to get up to use the bathroom.
[2021-12-17] MEDS: LEVOTHYROXINE 100 MCG TABLET PO (05:46)
[2021-12-17] MEDS: VANCOMYCIN 125 MG CAPSULE PO ×4 (05:46→22:51)
[2021-12-17] MEDS: LEVOTHYROXINE 75 MCG TABLET PO (05:47)
[2021-12-17] MEDS: INSULIN LISPRO 100 UNIT/ML 3ML VIAL SUBCUT ×3 (08:11→16:50)
[2021-12-17] MEDS: FUROSEMIDE 20 MG TABLET PO (08:12)
[2021-12-17] MEDS: LOSARTAN 25 MG TABLET PO (08:12)
[2021-12-17] MEDS: PANTOPRAZOLE DR 40 MG TABLET PO (08:12)
[2021-12-17] MEDS: HEPARIN 5,000 UNIT/ML VIAL 5000 UNIT SUBCUT ×2 (08:13→21:16)
[2021-12-17] MEDS: METOPROLOL IR 50 MG TABLET 100 MG PO ×2 (08:13→22:58)
[2021-12-17] MEDS: CHOLESTYRAMINE/ASPARTAME 4 GM PACK PO ×2 (08:13→13:35)
[2021-12-17] MEDS: LACTOBACILLUS ACIDOPHILUS TABLET 1 EACH PO ×2 (08:13→21:15)
[2021-12-17] MEDS: SODIUM CHLORIDE 0.9% FLUSH 10 ML IV ×2 (08:13→21:16)
[2021-12-17] MEDS: INSULIN NPH/REG 70-30 100 UNIT/ML 3ML VIAL 30 UNIT SUBCUT (11:28)
--- NOTE | 2021-12-17 14:25 | P.PN_ITS ---
Subjective Subjective Date Patient Seen: 12/17/21 Time Patient Seen: 08:00 Interval history: He had five bowel movements overnight. This morning he did have a bowel movement that is more formed. Exam Vital Signs (past 8 hours): - 12/17/21 08:12 12/17/21 08:42 12/17/21 10:12 Temperature 98.6 F Pulse Rate 98 H 98 H Respiratory Rate 18 Blood Pressure 140/56 L 140/56 L Pulse Oximetry 97 96 12/17/21 12:00 Temperature Pulse Rate Respiratory Rate Blood Pressure Pulse Oximetry 96 Oxygen Delivery Method Room Air Oxygen Flow Rate 0 Narrative Exam Narrative: General:?no acute distress Lungs:?clear bilaterally Cardio:? regular rate and rhythm without murmur Abdomen:?soft, nontender, nondistended, no organomegaly Objective Labs Result Diagrams: 12/16/21 05:40 12/16/21 05:40 [facility] Medical History Atrial fibrillation (Unknown) Carotid artery disease (Unknown) Coronary artery disease (Unknown) Diabetes (Unknown) Diabetes, type 1.5, uncontrolled, managed as type 2 Erectile dysfunction (Unknown) GERD (gastroesophageal reflux disease) (Unknown) Hepatitis C (Unknown) Hx of drug abuse Hyperlipemia (Unknown) Hypertension (Unknown) Hypothyroidism (Unknown) Measles (Unknown) Myocardial infarct (10/17/06) Obstructive sleep apnea (Unknown) Peripheral vascular disease (Unknown) Sacral back pain Surgical History History of open reduction and internal fixation (ORIF) procedure (09/2010) History of penile implant Hx of cataract surgery (~2004) Hx of coronary artery bypass surgery (10/2006) S/P bilateral below knee amputation (Unknown) Family History Father Age: 86 Heart disease ETOH abuse Mother Age: 94 Heart disease Alzheimer's dementia without behavioral disturbance, Alzheimer's disease of unspecified onset Social History household members: spouse Smoking Status: Never smoker alcohol intake: never substance use type: does not use Assessment & Plan Assessment & Plan narrative: 1. Lower GI bleed, acute, with diarrhea -on chronic Eliquis -probably evidence of bleeding secondary to being on Eliquis and his C diff colitis -General surgery Dr. Curiel has seen and agrees with this assessment -Dr Curiel does not recommend colonoscopy in the setting of colitis given the increased risk of colonic perforation. -trend hemoglobin -DC protonix 40 mg IV b.i.d. -H pylori serology is pending 2.? Acute blood loss anemia. -Hemoglobin dropped from 12.7/o37.4? on 11/07/2021to? 9.6/28.6. -As stated above is felt that his blood loss is related to combination of Eliquis and C diff colitis -since 06/2022 his H&H has remained stable and today it is 10.0/29.6 3.?C diff?colitis -stool culture:? mixed? fecal jaya -vancomycin 125 mg p.o. q.6h -dc questran -Monitor H&H, electrolytes. 4. History of right hand cellulitis/Abcess, not present on admission -Managed by [facility] Infectious Disease/Dr. Montero/Dr. Guevara -[facility] hospitalization 11 03- 22,021, 1221-12 03/06/2021 -[facility] hospitalization 11/18/2021 to 12/04/2021:? Postop right hand infection, syncope, epistaxis, leukocytosis, COVID-19 infection, lactic acidosis. - I&D by Dr. Guevara at [facility] on November 06, 2021 ? 5. Insulin-dependent type 2, chronic, poorly controlled, related hyperlipidemia, chronic, present on admission - 11/03/2021: A1C 8.2% - this morning blood sugars dropped to 26 at 3:00 a.m..? Since taking food it improved to 108 and at 8:00 a.m. this morning it was 173 - DC 70/30 bid -? continue sliding scale insulin lispro ordered for coverage -DM protocol,? continue to monitor formonitor for hypoglycemia - Carb contro 6. Chronic Atrial fibrillation, currently rate controlled, with RBBB, chronic, present on admission chronic Eliquis, - Holding Eliquis b/o GI bleed - continue metoprolol 7. Essential hypertension, portal hypertension without esophageal varices, acute on chronic, present on admission -continue losartan and metoprolol -last echo 2018 EF 50-55%-? echo and cardiology notes Dr. Templeton [facility] have been reviewed 8. CAD h/o NSTEMI 2006 status post CABG, chronic, chronic, present on admission -Holding eliquis & ASA 2/2GI bleed -Managed by Cardiology Dr. Templeton 9. PAD - S/P? BILATERAL BKA 10. Hypothyroidism, acquired, chronic, present on admission - TSH -continue levothyroxine 11. IVDU, meth and heroin, acute on chronic, present on admission -patient endorsed in recent hospitalizations and medical appointments to current usage, and a desire to cease. -patient education regarding the cessation of substance abuse. 12. History of positive COVID-19 infection, acute -no present? active infection on admission -patient was found to be positive for COVID-[address] [facility] on 11/18/2001 -patient is asymptomatic today -COVID is negative 12/13/2021 Time Spent With Patient Critical Care time: I spent a total of [] minutes of critical care time on this patient's care today; this time is exclusive of procedural time. Quality VTE Deep Vein Thrombosis/Pulmonary Embolism Present on Admission: No
[2021-12-17 16:20] LABS: H. Pylori Antigen Stool Negative (Negative)
--- NOTE | 2021-12-17 18:34 | PC.NURSE ---
A&Ox4. Hypertensive 140/56, HR 98. All other vitals stable. Room air 96%. B,209 this morning. Talked with hospitalist who added back his humolin 30 units with meals due to elevated BG and feeling symptomatic. BG dropped to 182 at dinner and patient felt much better. Held 1600 Humolin dose to administer at later time due to later administration in the day of first dose and drop in BG, talked with pharmacy about plan. Good appetite. Denies pain. Independent in room. BLE amputations, uses prosthetics. Call light within reach, bed low.
[2021-12-17] MEDS: ATORVASTATIN 20 MG TABLET 40 MG PO (21:15)
[2021-12-17] MEDS: TAMSULOSIN 0.4 MG CAPSULE PO (21:16)
[2021-12-18] VITALS (7 sets, daily range): BP systolic 122–156; BP diastolic 43–75; PULSE 75–85; RESP 14–18; TEMP 36.4–37.1; O2SAT 97–100
[2021-12-18] MEDS: VANCOMYCIN 125 MG CAPSULE PO ×4 (05:54→22:46)
[2021-12-18] MEDS: LEVOTHYROXINE 100 MCG TABLET PO (05:54)
[2021-12-18] MEDS: LEVOTHYROXINE 75 MCG TABLET PO (05:56)
[2021-12-18] MEDS: LACTOBACILLUS ACIDOPHILUS TABLET 1 EACH PO ×2 (08:30→21:51)
[2021-12-18] MEDS: INSULIN NPH/REG 70-30 100 UNIT/ML 3ML VIAL 30 UNIT SUBCUT (09:04)
[2021-12-18] MEDS: HEPARIN 5,000 UNIT/ML VIAL 5000 UNIT SUBCUT ×2 (09:05→21:52)
[2021-12-18] MEDS: INSULIN LISPRO 100 UNIT/ML 3ML VIAL SUBCUT ×3 (09:05→17:31)
[2021-12-18] MEDS: LOSARTAN 25 MG TABLET PO (09:06)
[2021-12-18] MEDS: FUROSEMIDE 20 MG TABLET PO (09:06)
[2021-12-18] MEDS: PANTOPRAZOLE DR 40 MG TABLET PO (09:06)
[2021-12-18] MEDS: METOPROLOL IR 50 MG TABLET 100 MG PO ×2 (09:07→21:51)
[2021-12-18] MEDS: SODIUM CHLORIDE 0.9% FLUSH 10 ML IV ×2 (09:07→22:46)
[2021-12-18 10:16] LABS: Hematocrit 29.4 % (41-53); Hemoglobin 9.9 g/dL (13.5-17.5); Mean Corpuscular HGB Conc 33.7 % (30-36); Mean Corpuscular Hemoglobin 27.6 PG (26-34); Platelet Count 227 X10^3/uL (150-400); Red Blood Cell Count 3.58 X10^6/uL (4.5-5.9); White Blood Cell Count 3.7 X10^3/uL (4.5-11.0)
[2021-12-18 10:31] LABS: Blood Urea Nitrogen 11 mg/dL (9-20); Carbon Dioxide 27 mmol/L (22-32); Chloride 107 mmol/L (98-107); Estimated Glomerular Filt Rate > 60.0 mL/min (>60); Glucose 292 mg/dL (80-110); HEMOLYSIS < 15 (0-50); Potassium 4.1 mmol/L (3.4-5.1); Sodium 139 mmol/L (137-145)
--- NOTE | 2021-12-18 11:24 | PC.NURSE ---
PT wakes easily, able to state needs. Uses Bilateral LE prosthesis well. Initially upset with Insulin dosing. Discussed with hospitalist and with Pt see new orders. Pt up to commode chair. Presently in bed sleeping.
--- NOTE | 2021-12-18 12:32 | P.PN_ITS ---
Subjective Subjective Interval history: Patient endorses continued loose stools. He endorses 8-10 episodes of diarrhea yesterday. He also is concerned about his glucose control here. He prefers to be back on his home insulin regimen. He verbalized frustration with many recent hospitalizations. Exam Vital Signs (past 8 hours): - 12/18/21 05:10 12/18/21 09:06 12/18/21 09:30 Temperature 97.9 F 97.9 F Pulse Rate 85 83 83 Respiratory Rate 18 16 Blood Pressure 156/74 H 148/75 H 148/75 H Pulse Oximetry 98 100 Oxygen Delivery Method Room Air Oxygen Flow Rate 16 Const Other: Patient sitting up in chair upon my entering the room, in no apparent acute distress Eyes Other: No scleral icterus appreciated. Neck Other: No carotid bruits appreciated. Resp Other: Lungs with diminished breath sounds bilaterally, without adventitious breath sounds. Cardio Other: RRR. S1 and S2 normal. No murmurs appreciated. GI Other: Soft, non-distended, slight tenderness to palpation shanel-umbilically. Bowel sounds present. Skin Other: No grossly abnormal skin lesions noted. Extrem Other: Palpable and equal radial pulses. Bilateral BKA present. Objective Labs Result Diagrams: 12/18/21 08:51 12/18/21 08:51 Labs: Laboratory Results - last 24 hr 12/13/21 12/18/21 12/18/21 20:20 08:51 08:51 WBC 3.7 L RBC 3.58 L Hgb 9.9 L Hct 29.4 L MCV 82.0 MCH 27.6 MCHC 33.7 RDW 15.0 H Plt Count 227 Sodium 139 Potassium 4.1 Chloride 107 Carbon Dioxide 27 BUN 11 Creatinine 0.58 L Estimated GFR > 60.0 BUN/Creatinine Ratio 19.0 Glucose 292 H D Calcium 9.0 H. pylori Antigen Negative [facility] Medical History Atrial fibrillation (Unknown) Carotid artery disease (Unknown) Coronary artery disease (Unknown) Diabetes (Unknown) Diabetes, type 1.5, uncontrolled, managed as type 2 Erectile dysfunction (Unknown) GERD (gastroesophageal reflux disease) (Unknown) Hepatitis C (Unknown) Hx of drug abuse Hyperlipemia (Unknown) Hypertension (Unknown) Hypothyroidism (Unknown) Measles (Unknown) Myocardial infarct (10/17/06) Obstructive sleep apnea (Unknown) Peripheral vascular disease (Unknown) Sacral back pain Surgical History History of open reduction and internal fixation (ORIF) procedure (09/2010) History of penile implant Hx of cataract surgery (~2004) Hx of coronary artery bypass surgery (10/2006) S/P bilateral below knee amputation (Unknown) Family History Father Age: 86 Heart disease ETOH abuse Mother Age: 94 Heart disease Alzheimer's dementia without behavioral disturbance, Alzheimer's disease of unspecified onset Social History household members: spouse Smoking Status: Never smoker alcohol intake: never substance use type: does not use Assessment & Plan Assessment & Plan narrative: 1. Lower GI bleed, acute, with diarrhea -on chronic Eliquis -probably evidence of bleeding secondary to being on Eliquis and his C diff colitis -general surgery Dr. Curiel has seen and agrees with this assessment -Dr. Curiel does not recommend colonoscopy in the setting of colitis given the increased risk of colonic perforation -trend hemoglobin -discontinue protonix 40 mg IV b.i.d. -H. pylori serology is pending 2.?Acute blood loss anemia -as stated above is felt that his blood loss is related to combination of Eliquis and C. diff colitis -since 06/2022 his H&H has remained stable and today it is 10.0/29.6 3.?C. diff?colitis -stool culture:?mixed? fecal jaya -vancomycin 125 mg p.o. q.6h -monitor H&H, electrolytes 4. History of right hand cellulitis/abscess, not present on admission -managed by [facility] Infectious Disease/Dr. Montero/Dr. Guevara -[facility] hospitalization 11 03- 22,021, 1221-12 03/06/2021 -[facility] hospitalization 11/18/2021 to 12/04/2021:? Postop right hand infection, syncope, epistaxis, leukocytosis, COVID-19 infection, lactic acidosis -I&D by Dr. Guevara at [facility] on November 06, 2021 ? 5. Insulin-dependent type 2, chronic, poorly controlled, related hyperlipidemia, chronic, present on admission -11/03/2021: A1C 8.2% -continue sliding scale insulin lispro ordered for coverage -DM protocol,? continue to monitor for hypoglycemia 6. Chronic atrial fibrillation, currently rate controlled, with RBBB, chronic, present on admission -holding Eliquis b/o GI bleed -continue metoprolol 7. Essential hypertension, portal hypertension without esophageal varices, acute on chronic, present on admission -continue losartan and metoprolol -last echo 2018 EF 50-55%-? echo and cardiology notes Dr. Templeton [facility] have been reviewed 8. CAD h/o NSTEMI 2006 status post CABG, chronic, chronic, present on admission -Holding eliquis & ASA 2/2GI bleed -Managed by Cardiology Dr. Templeton 9. PAD -status post?bilateral BKA 10. Hypothyroidism, acquired, chronic, present on admission -continue levothyroxine 11. IVDU, meth and heroin, acute on chronic, present on admission -patient endorsed in recent hospitalizations and medical appointments to current usage, and a desire to cease -patient education regarding the cessation of substance abuse 12. History of positive COVID-19 infection, acute -no present? active infection on admission -patient was found to be positive for COVID-19 on admission to [facility] on 11/18/2001 -patient is asymptomatic today -COVID is negative 12/13/2021 VTE prophylaxis: On hold currently given GI bleed Time Spent With Patient Critical Care time: I spent a total of [] minutes of critical care time on this patient's care today; this time is exclusive of procedural time. Quality VTE Deep Vein Thrombosis/Pulmonary Embolism Present on Admission: No MIPS - Admit I confirm the patient?s Advance Care Plan is present, Code status is documented, Surrogate decision maker is in patient?s record [If Yes, STOP here]: Yes
[2021-12-18] MEDS: INSULIN NPH/REG 70-30 100 UNIT/ML 3ML VIAL 35 UNIT SUBCUT (17:28)
[2021-12-18] MEDS: ATORVASTATIN 20 MG TABLET 40 MG PO (21:51)
[2021-12-18] MEDS: TAMSULOSIN 0.4 MG CAPSULE PO (21:51)
[2021-12-18] MEDS: INSULIN GLARGINE 100 UNIT/ML 3ML PEN 20 UNIT SUBCUT (21:53)
[2021-12-19] VITALS (8 sets, daily range): BP systolic 138–177; BP diastolic 56–90; PULSE 66–79; RESP 18; TEMP 36.4–36.6; O2SAT 97–99
--- NOTE | 2021-12-19 02:21 | PC.NURSE ---
Pt GLU at 2100 170. Discussed plan of action w/ insulin regime. Per protocol pt would be getting 0U of lispro and had 20U glargine ordered. Pt agreeable. This RN informed pt that his glucose would be monitored carefully through the night by staff. At approx 0040, pt reported dizziness, requested a blood sugar check. This RN performed 2 checks, first one reading 41, second reading 46. Pt requested orange juice, a cheese stick, and a sandwich. At 0110, blood glucose was checked again, reading 68. Pt given yogurt. Pt no longer symptomatic. At 0135, pt GLU was 121. Blood glucose will be checked again between 3 and 4 AM.
[2021-12-19] MEDS: LEVOTHYROXINE 75 MCG TABLET PO (06:14)
[2021-12-19] MEDS: VANCOMYCIN 125 MG CAPSULE PO ×4 (06:14→22:25)
[2021-12-19] MEDS: LEVOTHYROXINE 100 MCG TABLET PO (06:14)
[2021-12-19] MEDS: LACTOBACILLUS ACIDOPHILUS TABLET 1 EACH PO ×2 (09:09→21:00)
[2021-12-19] MEDS: HEPARIN 5,000 UNIT/ML VIAL 5000 UNIT SUBCUT ×2 (09:09→20:59)
[2021-12-19] MEDS: FUROSEMIDE 20 MG TABLET PO (09:09)
[2021-12-19] MEDS: PANTOPRAZOLE DR 40 MG TABLET PO (09:10)
[2021-12-19] MEDS: SODIUM CHLORIDE 0.9% FLUSH 10 ML IV ×2 (09:10→21:01)
[2021-12-19] MEDS: INSULIN NPH/REG 70-30 100 UNIT/ML 3ML VIAL 35 UNIT SUBCUT ×2 (09:14→18:19)
[2021-12-19] MEDS: METOPROLOL IR 50 MG TABLET 100 MG PO ×2 (09:19→21:00)
[2021-12-19] MEDS: LOSARTAN 25 MG TABLET PO (09:19)
[2021-12-19] MEDS: INSULIN LISPRO 100 UNIT/ML 3ML VIAL SUBCUT ×2 (14:21→18:02)
--- NOTE | 2021-12-19 16:42 | PM.PN.1 ---
Subjective Subjective Interval history: The patient denies any new, acute complaints this morning. He endorses continued copious BM's yesterday, 8-10. He is stating that they are becoming more well-formed now. He denies any blood in his stool. He reports good PO intake. Exam Vital Signs (past 8 hours): - 12/19/21 09:19 12/19/21 11:00 Temperature 97.6 F Pulse Rate 79 66 Respiratory Rate 18 Blood Pressure 177/90 H 145/56 H Pulse Oximetry 98 Oxygen Delivery Method Room Air Oxygen Flow Rate 0 Narrative Exam Narrative: Const Other: Patient sitting up in chair upon my entering the room, in no apparent acute distress Eyes Other: No scleral icterus appreciated. Neck Other: No carotid bruits appreciated. Resp Other: Lungs with diminished breath sounds bilaterally, without adventitious breath sounds. Cardio Other: RRR. S1 and S2 normal. No murmurs appreciated. GI Other: Soft, non-distended, slight tenderness to palpation shanel-umbilically. Bowel sounds present. Skin Other: No grossly abnormal skin lesions noted. Extrem Other: Palpable and equal radial pulses. Bilateral BKA present. Objective Labs Result Diagrams: 12/18/21 08:51 12/18/21 08:51 [facility] Medical History Atrial fibrillation (Unknown) Carotid artery disease (Unknown) Coronary artery disease (Unknown) Diabetes (Unknown) Diabetes, type 1.5, uncontrolled, managed as type 2 Erectile dysfunction (Unknown) GERD (gastroesophageal reflux disease) (Unknown) Hepatitis C (Unknown) Hx of drug abuse Hyperlipemia (Unknown) Hypertension (Unknown) Hypothyroidism (Unknown) Measles (Unknown) Myocardial infarct (10/17/06) Obstructive sleep apnea (Unknown) Peripheral vascular disease (Unknown) Sacral back pain Surgical History History of open reduction and internal fixation (ORIF) procedure (09/2010) History of penile implant Hx of cataract surgery (~2004) Hx of coronary artery bypass surgery (10/2006) S/P bilateral below knee amputation (Unknown) Family History Father Age: 86 Heart disease ETOH abuse Mother Age: 94 Heart disease Alzheimer's dementia without behavioral disturbance, Alzheimer's disease of unspecified onset Social History household members: spouse Smoking Status: Never smoker alcohol intake: never substance use type: does not use Assessment & Plan Assessment & Plan narrative: 1. Lower GI bleed, acute, with diarrhea, resolved -on chronic Eliquis -probably evidence of bleeding secondary to being on Eliquis and his C. diff colitis 2.?Acute blood loss anemia, stable -as stated above is felt that his blood loss is related to combination of Eliquis and C. diff colitis -since 06/2022 his H&H has remained stable 3.?C. diff?colitis -stool culture:?mixed?fecal jaya -vancomycin 125 mg p.o. q.6h -monitor H&H, electrolytes 4. History of right hand cellulitis/abscess, not present on admission -managed by [facility] Infectious Disease/Dr. Montero/Dr. Guevara -[facility] hospitalization 22,021, 1221-12 03/06/2021 -[facility] hospitalization 11/18/2021 to 12/04/2021:? Postop right hand infection, syncope, epistaxis, leukocytosis, COVID-19 infection, lactic acidosis -I&D by Dr. Guevara at [facility] on November 06, 2021 ? 5. Insulin-dependent type 2, chronic, poorly controlled, related hyperlipidemia, chronic, present on admission -11/03/2021: A1C 8.2% -continue sliding scale insulin lispro ordered for coverage -DM protocol,? continue to monitor for hypoglycemia 6. Chronic atrial fibrillation, currently rate controlled, with RBBB, chronic, present on admission -holding Eliquis b/o GI bleed -continue metoprolol 7. Essential hypertension, portal hypertension without esophageal varices, acute on chronic, present on admission -continue losartan and metoprolol -last echo 2019 EF 50-55%-? echo and cardiology notes Dr. Templeton [facility] have been reviewed 8. CAD h/o NSTEMI 2006 status post CABG, chronic, chronic, present on admission -Holding eliquis & ASA 2/2GI bleed -Managed by Cardiology Dr. Templeton 9. PAD -status post?bilateral BKA 10. Hypothyroidism, acquired, chronic, present on admission -continue levothyroxine 11. IVDU, meth and heroin, acute on chronic, present on admission -patient endorsed in recent hospitalizations and medical appointments to current usage, and a desire to cease -patient education regarding the cessation of substance abuse 12. History of positive COVID-19 infection, acute -no present? active infection on admission -patient was found to be positive for COVID-19 on admission to [facility] on 11/18/2001 -patient is asymptomatic today -COVID is negative 12/13/2021 VTE prophylaxis: On hold currently given GI bleed Time Spent With Patient Critical Care time: I spent a total of [] minutes of critical care time on this patient's care today; this time is exclusive of procedural time. Quality VTE Deep Vein Thrombosis/Pulmonary Embolism Present on Admission: No
[2021-12-19] MEDS: CLOTRIMAZOLE/BETAMETHASONE CRM 15 GM 1 APPLIC TOP (19:57)
[2021-12-19] MEDS: ATORVASTATIN 20 MG TABLET 40 MG PO (21:00)
[2021-12-19] MEDS: TAMSULOSIN 0.4 MG CAPSULE PO (21:00)
[2021-12-19] MEDS: INSULIN GLARGINE 100 UNIT/ML 3ML PEN 10 UNIT SUBCUT (21:02)
[2021-12-20] VITALS (7 sets, daily range): BP systolic 105–167; BP diastolic 51–68; PULSE 63–87; RESP 16–18; TEMP 36.5–37.1; O2SAT 94–97
--- NOTE | 2021-12-20 00:53 | PC.NURSE ---
12/19/2021 @ 1724 Patient called this MITER SAWYER into the room stating I feel weird. Patient requesting Blood Glucose to be checked. This MITER SAWYER checked patient's Blood Glucose and his Blood Glucose was 51. Gave patient a snack of a half a tuna and a half of an egg salad sandwich with a 4oz Dyer Juice. Reported to Susana Ly RN
[2021-12-20] MEDS: VANCOMYCIN 125 MG CAPSULE PO ×3 (04:59→18:35)
[2021-12-20] MEDS: LEVOTHYROXINE 100 MCG TABLET PO (06:07)
[2021-12-20] MEDS: LEVOTHYROXINE 75 MCG TABLET PO (06:07)
[2021-12-20] MEDS: INSULIN NPH/REG 70-30 100 UNIT/ML 3ML VIAL 35 UNIT SUBCUT ×2 (09:09→17:43)
[2021-12-20] MEDS: METOPROLOL IR 50 MG TABLET 100 MG PO ×2 (09:09→21:09)
[2021-12-20] MEDS: LOSARTAN 25 MG TABLET PO (09:10)
[2021-12-20] MEDS: CLOTRIMAZOLE/BETAMETHASONE CRM 15 GM 1 APPLIC TOP (09:11)
[2021-12-20] MEDS: HEPARIN 5,000 UNIT/ML VIAL 5000 UNIT SUBCUT ×2 (09:18→20:54)
[2021-12-20] MEDS: PANTOPRAZOLE DR 40 MG TABLET PO (09:20)
[2021-12-20] MEDS: SODIUM CHLORIDE 0.9% FLUSH 10 ML IV ×2 (09:20→21:10)
[2021-12-20] MEDS: LACTOBACILLUS ACIDOPHILUS TABLET 1 EACH PO ×2 (09:22→20:54)
[2021-12-20] MEDS: FUROSEMIDE 20 MG TABLET PO (09:22)
[2021-12-20] MEDS: INSULIN LISPRO 100 UNIT/ML 3ML VIAL SUBCUT ×2 (13:21→17:44)
--- NOTE | 2021-12-20 15:04 | PM.PN.1 ---
Subjective Subjective Interval history: Patient has had 5-6 episodes of watery diarrhea yesterday, which is improved from prior days. He denies there being blood in them. He reports not feeling quite back to his baseline yet. Exam Vital Signs (past 8 hours): - 12/20/21 09:10 Pulse Rate 66 Blood Pressure 146/68 H Oxygen Delivery Method Room Air Oxygen Flow Rate 0 Narrative Exam Narrative: Const Other: Patient sitting up in chair upon my entering the room, in no apparent acute distress Eyes Other: No scleral icterus appreciated. Neck Other: No carotid bruits appreciated. Resp Other: Lungs with diminished breath sounds bilaterally, without adventitious breath sounds. Cardio Other: RRR. S1 and S2 normal. No murmurs appreciated. GI Other: Soft, non-distended, slight tenderness to palpation shanel-umbilically. Bowel sounds present. Skin Other: No grossly abnormal skin lesions noted. Extrem Other: Palpable and equal radial pulses. Bilateral BKA present. Objective Labs Result Diagrams: 12/18/21 08:51 12/18/21 08:51 [facility] Medical History Atrial fibrillation (Unknown) Carotid artery disease (Unknown) Coronary artery disease (Unknown) Diabetes (Unknown) Diabetes, type 1.5, uncontrolled, managed as type 2 Erectile dysfunction (Unknown) GERD (gastroesophageal reflux disease) (Unknown) Hepatitis C (Unknown) Hx of drug abuse Hyperlipemia (Unknown) Hypertension (Unknown) Hypothyroidism (Unknown) Measles (Unknown) Myocardial infarct (10/17/06) Obstructive sleep apnea (Unknown) Peripheral vascular disease (Unknown) Sacral back pain Surgical History History of open reduction and internal fixation (ORIF) procedure (09/2010) History of penile implant Hx of cataract surgery (~2004) Hx of coronary artery bypass surgery (10/2006) S/P bilateral below knee amputation (Unknown) Family History Father Age: 86 Heart disease ETOH abuse Mother Age: 94 Heart disease Alzheimer's dementia without behavioral disturbance, Alzheimer's disease of unspecified onset Social History household members: spouse Smoking Status: Never smoker alcohol intake: never substance use type: does not use Assessment & Plan Assessment & Plan narrative: 1. Lower GI bleed, acute, with diarrhea, resolved -on chronic Eliquis -probably evidence of bleeding secondary to being on Eliquis and his C. diff colitis 2.?Acute blood loss anemia, stable -as stated above is felt that his blood loss is related to combination of Eliquis and C. diff colitis -since 06/2022 his H&H has remained stable 3.?C. diff?colitis -stool culture:?mixed?fecal jaya -vancomycin 125 mg p.o. q.6h -monitor H&H, electrolytes 4. History of right hand cellulitis/abscess, not present on admission -managed by [facility] Infectious Disease/Dr. Montero/Dr. Guevara -[facility] hospitalization 22,021, 1221-12 03/06/2021 -[facility] hospitalization 11/18/2021 to 12/04/2021:? Postop right hand infection, syncope, epistaxis, leukocytosis, COVID-19 infection, lactic acidosis -I&D by Dr. Guevara at [facility] on November 06, 2021 ? 5. Insulin-dependent type 2, chronic, poorly controlled, related hyperlipidemia, chronic, present on admission -11/03/2021: A1C 8.2% -continue sliding scale insulin lispro ordered for coverage -DM protocol,? continue to monitor for hypoglycemia 6. Chronic atrial fibrillation, currently rate controlled, with RBBB, chronic, present on admission -holding Eliquis b/o GI bleed -continue metoprolol 7. Essential hypertension, portal hypertension without esophageal varices, acute on chronic, present on admission -continue losartan and metoprolol -last echo 2019 EF 50-55%-? echo and cardiology notes Dr. [facility] have been reviewed 8. CAD h/o NSTEMI 2006 status post CABG, chronic, chronic, present on admission -Holding eliquis & ASA 2/2GI bleed -Managed by Cardiology Dr. Templeton 9. PAD -status post?bilateral BKA 10. Hypothyroidism, acquired, chronic, present on admission -continue levothyroxine 11. IVDU, meth and heroin, acute on chronic, present on admission -patient endorsed in recent hospitalizations and medical appointments to current usage, and a desire to cease -patient education regarding the cessation of substance abuse 12. History of positive COVID-19 infection, acute -no present? active infection on admission -patient was found to be positive for COVID-19 on admission to [facility] on 11/18/2001 -patient is asymptomatic today -COVID is negative 12/13/2021 13. Tinea corporis to bilateral LE's -will start Lotrimin cream VTE prophylaxis: Lovenox 40 mg daily Time Spent With Patient Critical Care time: I spent a total of [] minutes of critical care time on this patient's care today; this time is exclusive of procedural time. Quality VTE Deep Vein Thrombosis/Pulmonary Embolism Present on Admission: No
[2021-12-20] MEDS: ACETAMINOPHEN 325 MG TABLET 650 MG PO (18:43)
[2021-12-20] MEDS: ATORVASTATIN 20 MG TABLET 40 MG PO (20:54)
[2021-12-20] MEDS: CLOTRIMAZOLE 1% CRM 30 GM 1 APPLIC TOP (20:54)
[2021-12-20] MEDS: TAMSULOSIN 0.4 MG CAPSULE PO (20:54)
[2021-12-20] MEDS: BETAMETH DIP AUGM 0.05% OINT 15 GM 1 APPLIC TOP (20:55)
[2021-12-21] VITALS: O2SAT 95
[2021-12-21] MEDS: VANCOMYCIN 125 MG CAPSULE PO ×3 (00:01→12:59)
[2021-12-21 02:10] VITALS: BP 140/53; PULSE 70; RESP 18; TEMP 36.6; O2SAT 98
[2021-12-21] MEDS: LEVOTHYROXINE 75 MCG TABLET PO (05:45)
[2021-12-21] MEDS: LEVOTHYROXINE 100 MCG TABLET PO (05:45)
--- NOTE | 2021-12-21 07:54 | PC.NURSE ---
At approx 2100, pt's BG checked via fingerstick- read 36. Rechecked immediately on another finger, 46. Gave 8 oz OJ and yogurt per pt request. Recheck at 2150 showed 114. Recheck at 2355 showed 109. Recheck at 0138 showed 56. Pt given 8 oz OJ and yogurt per pt request. Recheck at 0210 showed 88. PORTABLE MACHINE CUTTER gave pt 8 oz juice. Recheck at 0408 showed 149. Recheck at 0550 showed 114. Discussed diet at home with patient, pt shows poor knowledge of what a ADA diet consists of. I don't live by diabetes, I don't want it to control my life. Pt educated on appropriate dietary choices. Passed on to gilma VANESSA.
[2021-12-21 09:00] VITALS: BP 141/78; PULSE 88; RESP 20; TEMP 36.8; O2SAT 98
[2021-12-21] MEDS: LACTOBACILLUS ACIDOPHILUS TABLET 1 EACH PO (09:10)
[2021-12-21] MEDS: FUROSEMIDE 20 MG TABLET PO (09:11)
[2021-12-21] MEDS: HEPARIN 5,000 UNIT/ML VIAL 5000 UNIT SUBCUT (09:11)
[2021-12-21] MEDS: SODIUM CHLORIDE 0.9% FLUSH 10 ML IV (09:11)
[2021-12-21] MEDS: PANTOPRAZOLE DR 40 MG TABLET PO (09:11)
[2021-12-21] MEDS: INSULIN NPH/REG 70-30 100 UNIT/ML 3ML VIAL 35 UNIT SUBCUT (09:14)
[2021-12-21] MEDS: INSULIN LISPRO 100 UNIT/ML 3ML VIAL SUBCUT ×2 (09:15→13:03)
[2021-12-21 09:25] VITALS: BP 165/67; PULSE 72
[2021-12-21] MEDS: METOPROLOL IR 50 MG TABLET 100 MG PO (09:25)
[2021-12-21] MEDS: LOSARTAN 25 MG TABLET PO (09:25)
[2021-12-21 09:29] LABS: Hematocrit 31.4 % (41-53); Hemoglobin 10.6 g/dL (13.5-17.5); Mean Corpuscular HGB Conc 33.7 % (30-36); Mean Corpuscular Hemoglobin 27.4 PG (26-34); Mean Corpuscular Volume 81.2 fL (80-100); Platelet Count 227 X10^3/uL (150-400); Red Blood Cell Count 3.87 X10^6/uL (4.5-5.9); Red Cell Distribution Width 15.2 % (11.6-14.8); White Blood Cell Count 4.5 X10^3/uL (4.5-11.0)
[2021-12-21 09:50] LABS: BUN Creatinine Ratio 22.2 (6-22); Blood Urea Nitrogen 14 mg/dL (9-20); Calcium 9.3 mg/dL (8.4-10.2); Carbon Dioxide 31 mmol/L (22-32); Chloride 105 mmol/L (98-107); Estimated Glomerular Filt Rate > 60.0 mL/min (>60); Glucose 162 mg/dL (80-110); HEMOLYSIS < 15 (0-50); Magnesium 1.6 mg/dL (1.6-2.3); Potassium 4.3 mmol/L (3.4-5.1); Sodium 139 mmol/L (137-145)
[2021-12-21] MEDS: BETAMETH DIP AUGM 0.05% OINT 15 GM 1 APPLIC TOP (10:00)
[2021-12-21] MEDS: CLOTRIMAZOLE 1% CRM 30 GM 1 APPLIC TOP (10:00)
[2021-12-21 12:00] VITALS: O2SAT 96
[2021-12-21 12:12] VITALS: O2SAT 98
[2021-12-21] MEDS: MAGNESIUM CHLORIDE 64 MG TABLET 128 MG PO (14:30)
--- NOTE | 2021-12-21 15:01 | P.PN_ITS ---
Subjective Subjective Interval history: The patient reports his stools are becoming more well-formed now. He denies any blood in his stools. He reports it's becoming more brown now. Denies having any acute complaints. He is understandably anxious about potentially spreading C. diff amongst the family he lives with, and understands that proper hygience is essential. Exam Vital Signs (past 8 hours): - 12/21/21 09:00 12/21/21 09:25 12/21/21 12:12 Temperature 98.2 F Pulse Rate 88 72 Respiratory Rate 20 Blood Pressure 141/78 H 165/67 H Pulse Oximetry 98 98 Oxygen Delivery Method Room Air Oxygen Flow Rate 0 Narrative Exam Narrative: Const Other: Patient sitting up in chair upon my entering the room, in no apparent acute distress Eyes Other: No scleral icterus appreciated. Neck Other: No carotid bruits appreciated. Resp Other: Lungs with diminished breath sounds bilaterally, without adventitious breath sounds. Cardio Other: RRR. S1 and S2 normal. No murmurs appreciated. GI Other: Soft, non-distended, slight tenderness to palpation shanel-umbilically. Bowel sounds present. Skin Other: No grossly abnormal skin lesions noted. Extrem Other: Palpable and equal radial pulses. Bilateral BKA present. Objective Labs Result Diagrams: 12/21/21 09:15 12/21/21 09:15 Labs: Laboratory Results - last 24 hr 12/21/21 12/21/21 09:15 09:15 WBC 4.5 RBC 3.87 L Hgb 10.6 L Hct 31.4 L MCV 81.2 MCH 27.4 MCHC 33.7 RDW 15.2 H Plt Count 227 Sodium 139 Potassium 4.3 Chloride 105 Carbon Dioxide 31 BUN 14 Creatinine 0.63 L Estimated GFR > 60.0 BUN/Creatinine Ratio 22.2 H Glucose 162 H D Calcium 9.3 Magnesium 1.6 [facility] Medical History Atrial fibrillation (Unknown) Carotid artery disease (Unknown) Coronary artery disease (Unknown) Diabetes (Unknown) Diabetes, type 1.5, uncontrolled, managed as type 2 Erectile dysfunction (Unknown) GERD (gastroesophageal reflux disease) (Unknown) Hepatitis C (Unknown) Hx of drug abuse Hyperlipemia (Unknown) Hypertension (Unknown) Hypothyroidism (Unknown) Measles (Unknown) Myocardial infarct (10/17/06) Obstructive sleep apnea (Unknown) Peripheral vascular disease (Unknown) Sacral back pain Surgical History History of open reduction and internal fixation (ORIF) procedure (09/2010) History of penile implant Hx of cataract surgery (~2004) Hx of coronary artery bypass surgery (10/2006) S/P bilateral below knee amputation (Unknown) Family History Father Age: 86 Heart disease ETOH abuse Mother Age: 94 Heart disease Alzheimer's dementia without behavioral disturbance, Alzheimer's disease of unspecified onset Social History household members: spouse Smoking Status: Never smoker alcohol intake: never substance use type: does not use Assessment & Plan Assessment & Plan narrative: Assessment & Plan: 1. Lower GI bleed, acute, with diarrhea, resolved -on chronic Eliquis -probably evidence of bleeding secondary to being on Eliquis and his C. diff colitis 2.?Acute blood loss anemia, stable -as stated above is felt that his blood loss is related to combination of Eliquis and C. diff colitis -since 06/2022 his H&H has remained stable 3.?C. diff?colitis -stool culture:?mixed?fecal jaya -vancomycin 125 mg p.o. q.6h -monitor H&H, electrolytes 4. History of right hand cellulitis/abscess, not present on admission -managed by [facility] Infectious Disease/Dr. Montero/Dr. Guevara -[facility] hospitalization 11 03- 22,021, 1221-12 03/06/2021 -[facility] hospitalization 11/18/2021 to 12/04/2021:? Postop right hand infection, syncope, epistaxis, leukocytosis, COVID-19 infection, lactic acidosis -I&D by Dr. Guevara at [facility] on November 06, 2021 ? 5. Insulin-dependent type 2, chronic, poorly controlled, related hyperlipidemia, chronic, present on admission -11/03/2021: A1C 8.2% -continue sliding scale insulin lispro ordered for coverage -DM protocol,? continue to monitor for hypoglycemia 6. Chronic atrial fibrillation, currently rate controlled, with RBBB, chronic, present on admission -holding Eliquis b/o GI bleed -continue metoprolol 7. Essential hypertension, portal hypertension without esophageal varices, acute on chronic, present on admission -continue losartan and metoprolol -last echo 2018 EF 50-55%-? echo and cardiology notes Dr. [facility] have been reviewed 8. CAD h/o NSTEMI 2006 status post CABG, chronic, chronic, present on admission -Holding eliquis & ASA 2/2GI bleed -Managed by Cardiology Dr. Templeton 9. PAD -status post?bilateral BKA 10. Hypothyroidism, acquired, chronic, present on admission -continue levothyroxine 11. IVDU, meth and heroin, acute on chronic, present on admission -patient endorsed in recent hospitalizations and medical appointments to current usage, and a desire to cease -patient education regarding the cessation of substance abuse 12. History of positive COVID-19 infection, acute -no present? active infection on admission -patient was found to be positive for COVID-19 on admission to [facility] on 11/18/2001 -patient is asymptomatic today -COVID is negative 12/13/2021 13. Tinea corporis to bilateral LE's -will start Lotrimin cream VTE prophylaxis: Lovenox 40 mg daily Time Spent With Patient Critical Care time: I spent a total of [] minutes of critical care time on this patient's care today; this time is exclusive of procedural time. Quality VTE Deep Vein Thrombosis/Pulmonary Embolism Present on Admission: No
--- NOTE | 2021-12-21 16:22 | PM.DS.1 ---
History of Present Illness History of Present Illness Chief complaint: uncontrolled bowel movements, last one was red Narrative: Tulio Yi is a 75-year-old male with a history of insulin-dependent Type 2 diabetic, CAD s/p CABG, Portal HTN w/out esophageal varices, hep C-resolved, NSTEMI [place] 2005, [place], PAD, bilat BKA, Chronic atrial fibrillation rate controlled-chronic Eliquis, hypothyroidism, and remote Hx of IVDU (meth/heroin) who has had multiple hospitalizations, antibiotics & surgical interventions for Right hand cellulitis/abcess in the past year, presented to the ED this evening with a chief complaint of loose stool which was dark and tarry x1 at approximately 1730.? He has had diarrhea on & off for the past month due to antibiotics. He complains of chronic worsening dizziness, weakness, and lightheadedness. He reports some bright red element to his stool at some point. He has taken some [id number]-qqnleiz anti diarrheal and his loose stools have slowed but continued to be black.? He denies chest pain, shortness of breath, abdominal pain, nausea, vomiting, fever, chills, or cough. Patient's vitals upon admit temp 98.7? mildly elevated BP 152/69, HR 92, RR 20, O2 saturation 99% on room air.? Patient's hemoglobin 9.8/hematocrit 29.? 11/07/2021 H/H 12.7/37.4.? Platelets are normal, no white count, patient's chemistries all WNL with the exception of low creatinine 0.63 last recorded creatinine 11/09/2021 0.80 WNL.? PT 17.6, INR 1.6.? Occult blood in ED positive.? Patient typed and crossed: blood type O positive.? Patient's chest x-ray demonstrated minimal left basilar atelectasis and infiltrate.? Patient is stable and in no distress at this time.? Dr. Curiel general surgery was consulted in ED and will consult on the case. [facility] (11/03-11/05/2021) (11/06-11/09/2021) Per Dr. Nieto :Right hand cellulitis abscess, Diabetes mellitus poor control, Chronic atrial fibrillation, Chronic anticoagulation 11/06/2021 incision and drainage of right hand abscess with Dr. Marlon Guevara Patient was treated with cefazolin.? He had incision and drainage on November 06.? Hand appearance is much improved.? His wound culture is growing Gram-positive bacilli, likely lab contaminant versus anthrax which is quite rare and unlikely.? Patient is being discharged on cephalexin and will follow-up at ortho clinic next week.? Follow up final wound culture results next week at ortho clinic.? In terms of his diabetic control his A1c is 8.2 which is suboptimal but it seems were patient has been for a long time.? No change was made in treatment regimen. Discharge Providers Provider Date of admission: 12/13/21 19:35 Discharge Date: 12/21/21 Primary care physician: Pb Montero MD Consults: 12/13/21 19:44 Consult to General Surgery Routine Comment: Consulting Provider: Jett Curiel Reason for consultation: Lower GI Bleed Has provider been notified: Yes 12/16/21 15:29 Consult to Home Health Routine Comment: Reason For Exam: Home Health RN, P.T, O.T. Discharge provider: Zohaib Ramsay MD Summary Hospital Course Discharge Diagnosis: Assessment & Plan: 1. Lower GI bleed, acute, with diarrhea, resolved -on chronic Eliquis -probably evidence of bleeding secondary to being on Eliquis and his C. diff colitis 2.?Acute blood loss anemia, stable -as stated above is felt that his blood loss is related to combination of Eliquis and C. diff colitis -since 06/2022 his H&H has remained stable 3.?C. diff?colitis -stool culture:?mixed?fecal jaya -vancomycin 125 mg p.o. q.6h -will discharge on PO vancomycin 125 mg every 6 hours to end on Dec 27, to complete a total of 14 days of abx therapy 4. History of right hand cellulitis/abscess, not present on admission -managed by [facility] Infectious Disease/Dr. Montero/Dr. Guevara -[facility] hospitalization 22,021, 1221-12 03/06/2021 -[facility] hospitalization 11/18/2021 to 12/04/2021:? Postop right hand infection, syncope, epistaxis, leukocytosis, COVID-19 infection, lactic acidosis -I&D by Dr. Guevara at [facility] on November 06, 2021 ? 5. Insulin-dependent type 2, chronic, poorly controlled, related hyperlipidemia, chronic, present on admission -11/03/2021: A1C 8.2% -continue sliding scale insulin lispro ordered for coverage -DM protocol,?continue to monitor for hypoglycemia 6. Chronic atrial fibrillation, currently rate controlled, with RBBB, chronic, present on admission -stable on Eliquis -continue metoprolol 7. Essential hypertension, portal hypertension without esophageal varices, acute on chronic, present on admission -continue losartan and metoprolol -last echo 2018 EF 50-55%-? echo and cardiology notes Dr. [facility] have been reviewed 8. CAD h/o NSTEMI 2006 status post CABG, chronic, chronic, present on admission -Managed by Cardiology Dr. Templeton 9. PAD -status post?bilateral BKA 10. Hypothyroidism, acquired, chronic, present on admission -continue levothyroxine 11. IVDU, meth and heroin, acute on chronic, present on admission -patient endorsed in recent hospitalizations and medical appointments to current usage, and a desire to cease -patient education regarding the cessation of substance abuse 12. History of positive COVID-19 infection, acute -no present? active infection on admission -patient was found to be positive for COVID-19 on admission to [facility] on 11/18/2001 -COVID is negative 12/13/2021 13. Tinea corporis to bilateral LE's -will start Lotrimin cream -patient to complete therapy outpatient Exam Vital Signs (past 8 hours): - 12/21/21 09:00 12/21/21 09:25 12/21/21 12:00 Temperature 98.2 F Pulse Rate 88 72 Respiratory Rate 20 Blood Pressure 141/78 H 165/67 H Pulse Oximetry 98 96 12/21/21 12:12 Temperature Pulse Rate Respiratory Rate Blood Pressure Pulse Oximetry 98 Oxygen Delivery Method Room Air Oxygen Flow Rate 0 Narrative Exam Narrative: Const Other: Patient sitting up in chair upon my entering the room, in no apparent acute distress Eyes Other: No scleral icterus appreciated. Neck Other: No carotid bruits appreciated. Resp Other: Lungs with diminished breath sounds bilaterally, without adventitious breath sounds. Cardio Other: RRR. S1 and S2 normal. No murmurs appreciated. GI Other: Soft, non-distended, slight tenderness to palpation shanel-umbilically. Bowel sounds present. Skin Other: No grossly abnormal skin lesions noted. Extrem Other: Palpable and equal radial pulses. Bilateral BKA present. Objective Labs Result Diagrams: 12/21/21 09:15 12/21/21 09:15 Labs: Laboratory Results - last 24 hr 12/21/21 12/21/21 09:15 09:15 WBC 4.5 RBC 3.87 L Hgb 10.6 L Hct 31.4 L MCV 81.2 MCH 27.4 MCHC 33.7 RDW 15.2 H Plt Count 227 Sodium 139 Potassium 4.3 Chloride 105 Carbon Dioxide 31 BUN 14 Creatinine 0.63 L Estimated GFR > 60.0 BUN/Creatinine Ratio 22.2 H Glucose 162 H D Calcium 9.3 Magnesium 1.6 PFSH Medical History Atrial fibrillation (Unknown) Carotid artery disease (Unknown) Coronary artery disease (Unknown) Diabetes (Unknown) Diabetes, type 1.5, uncontrolled, managed as type 2 Erectile dysfunction (Unknown) GERD (gastroesophageal reflux disease) (Unknown) Hepatitis C (Unknown) Hx of drug abuse Hyperlipemia (Unknown) Hypertension (Unknown) Hypothyroidism (Unknown) Measles (Unknown) Myocardial infarct (10/17/06) Obstructive sleep apnea (Unknown) Peripheral vascular disease (Unknown) Sacral back pain Surgical History History of open reduction and internal fixation (ORIF) procedure (09/2010) History of penile implant Hx of cataract surgery (~2004) Hx of coronary artery bypass surgery (10/2006) S/P bilateral below knee amputation (Unknown) Family History Father Age: 86 Heart disease ETOH abuse Mother Age: 94 Heart disease Alzheimer's dementia without behavioral disturbance, Alzheimer's disease of unspecified onset Social History household members: spouse Smoking Status: Never smoker alcohol intake: never substance use type: does not use Discharge Assessment & Plan Assessment and Plan Assessment: Assessment & Plan: 1. Lower GI bleed, acute, with diarrhea, resolved -on chronic Eliquis -probably evidence of bleeding secondary to being on Eliquis and his C. diff colitis 2. Acute blood loss anemia, stable -as stated above is felt that his blood loss is related to combination of Eliquis and C. diff colitis -since 06/2022 his H&H has remained stable 3. C. diff colitis -stool culture: mixed fecal jaya -vancomycin 125 mg p.o. q.6h -will discharge on PO vancomycin 125 mg every 6 hours to end on Dec 27, to complete a total of 14 days of abx therapy 4. History of right hand cellulitis/abscess, not present on admission -managed by [facility] Infectious Disease/Dr. Montero/Dr. Guevara -[facility] hospitalization 22,021, 1221-12 03/06/2021 -[facility] hospitalization 11/18/2021 to 12/04/2021:? Postop right hand infection, syncope, epistaxis, leukocytosis, COVID-19 infection, lactic acidosis -I&D by Dr. Guevara at [facility] on November 06, 2021 ? 5. Insulin-dependent type 2, chronic, poorly controlled, related hyperlipidemia, chronic, present on admission -11/03/2021: A1C 8.2% -continue sliding scale insulin lispro ordered for coverage -DM protocol, continue to monitor for hypoglycemia 6. Chronic atrial fibrillation, currently rate controlled, with RBBB, chronic, present on admission -stable on Eliquis -continue metoprolol 7. Essential hypertension, portal hypertension without esophageal varices, acute on chronic, present on admission -continue losartan and metoprolol -last echo 2018 EF 50-55%-? echo and cardiology notes Dr. [facility] have been reviewed 8. CAD h/o NSTEMI 2006 status post CABG, chronic, chronic, present on admission -Managed by Cardiology Dr. Templeton 9. PAD -status post bilateral BKA 10. Hypothyroidism, acquired, chronic, present on admission -continue levothyroxine 11. IVDU, meth and heroin, acute on chronic, present on admission -patient endorsed in recent hospitalizations and medical appointments to current usage, and a desire to cease -patient education regarding the cessation of substance abuse 12. History of positive COVID-19 infection, acute -no present? active infection on admission -patient was found to be positive for COVID-19 on admission to [facility] on 11/18/2001 -COVID is negative 12/13/2021 13. Tinea corporis to bilateral LE's -will start Lotrimin cream -patient to complete therapy outpatient Discharge Plan Discharge Plan Patient Disposition: Home Discharge orders & Medications Prescriptions: New vancomycin 125 mg Capsule 125 mg PO Q6H 6 Days Qty: 24 0RF betamethasone, augmented 0.05 % Ointment 1 applic topical BID 10 Days 0RF clotrimazole 1 % Cream 1 applic topical BID 10 Days 0RF vancomycin 125 mg capsule 125 mg PO QID 6 Days Qty: 24 0RF clotrimazole 1 % cream 1 applic topical BID 10 Days Qty: 45 0RF Continued metoprolol tartrate 100 mg tablet See Rx Instructions .ROUTE .COMPLEX Qty: 180 3RF Dose Instruction: take 1 tablet by mouth twice a day Rx Instructions: 100 BID furosemide 20 mg tablet 20 mg PO QDAY Qty: 90 3RF losartan 25 mg tablet 25 mg PO DAILY Qty: 90 3RF pantoprazole 40 mg tablet,delayed release (DR/EC) 40 mg PO DAILY Qty: 90 1RF Hold Instructions: taper with omeprazole (DME) Syringes: 1cc Insulin Syringes with [place] 0 .Route .MEDSUPPLY Qty: 100 3RF Dose Instruction: As directed Rx Instructions: Use 1 syringe with 30x12.7 mm needle to inject insulin four times daily. apixaban 5 mg tablet 5 mg PO BID 0RF (DME) Liners, suspension sleeves, and socks See Rx Instructions .Route .MEDSUPPLY Qty: 1 0RF Rx Instructions: As directed levothyroxine 175 mcg tablet 175 mcg PO DAILY Qty: 90 3RF (DME) Glucose: Test Strips See Rx Instructions .Route .MEDSUPPLY Qty: 250 6RF Dose Instruction: QID; Rx Instructions: Test blood sugar four times a day or as directed by rosuvastatin 20 mg tablet 20 mg PO BEDTIME Qty: 90 3RF tamsulosin 0.4 mg capsule 0.4 mg PO BEDTIME Qty: 90 3RF aspirin 81 mg tablet,delayed release (DR/EC) 2 tab PO DAILY 0RF Humulin 70/30 U-100 Insulin 100 unit/mL (70-30) Suspension 40 unit SUBCUT BIDAC Qty: 20 0RF Bacid 1 billion cell- 250 mg Tablet 1 ea PO BID Qty: 120 0RF Follow up/Referrals: Pb Montero MD [Primary Care Provider] - Visit Report/Discharge Packet Instructions: Gastrointestinal Bleeding, DI for Clostridioides difficile Infection Discharge Data Primary Care Provider: Pb Montero Quality VTE Deep Vein Thrombosis/Pulmonary Embolism Present on Admission: No
--- NOTE | 2021-12-21 17:42 | PC.NURSE ---
Pt is A&Ox3, VSS, afebrile on RA. BG 152-200's this shift. Excellent po intake. Pt denies pain and reports rash to BLE's is much improved as well as frequency and looseness of stool being much improved. MD at bedside evaluating patient and ordering labs today. Patient is medically cleared for discharge home. He verbalizes understanding of discharge medications and recommendations for follow up with his PCP. He is escorted to private vehicle with this afternoon at 1630 via wheel chair. He takes all of his belongings with him including his FWW and prescriptions.
== END 2021-12-21 16:30 | disposition home or self-care (01) | DRG 372 ==
LOC: ED 18:09 → AC 19:35
PROVIDERS: Internal Medicine; Student in an Organized Health Care Education/Training Program; Admitting Provider Nurse Practitioner Family; Emergency Provider Emergency Medicine; PCP Student in an Organized Health Care Education/Training Program; Referring Provider Emergency Medicine; Visit Provider Nurse Practitioner Family
DX: A04.72 Enterocolitis due to Clostridium difficile, not specified as recurrent (principal); I48.20 Chronic atrial fibrillation, unspecified; K76.6 Portal hypertension; K92.1 Melena; D68.32 Hemorrhagic disorder due to extrinsic circulating anticoagulants; D62 Acute posthemorrhagic anemia; Z79.01 Long term (current) use of anticoagulants; T45.515A Adverse effect of anticoagulants, initial encounter; F15.90 Other stimulant use, unspecified, uncomplicated; F11.90 Opioid use, unspecified, uncomplicated; Z86.16 Personal history of COVID-19; E11.65 Type 2 diabetes mellitus with hyperglycemia; I10 Essential (primary) hypertension; E03.9 Hypothyroidism, unspecified; B35.4 Tinea corporis; I25.10 Atherosclerotic heart disease of native coronary artery without angina pectoris; K21.9 Gastro-esophageal reflux disease without esophagitis; Z95.1 Presence of aortocoronary bypass graft; Z20.822 Contact with and (suspected) exposure to COVID-19; Z79.4 Long term (current) use of insulin
CPT/HCPCS: 36415; 74022; 80048; 80053; 82962; 83735; 84439; 84443; 85014; 85018; 85025; 85027; 85610; 85730; 86850; 86900; 86901; 87045; 87324; 87338; 87493; 87635; 87899; 94760; 99232; 99284; C9803; C9113; J1644; J1815; J3475

== ENCOUNTER 2022-01-05 07:46 | Emergency (ER) | payer MEDICARE, OTHER, SELFPAY ==
[2021-12-13 21:38] VITALS: BMI 32.1
[2022-01-05] VITALS (10 sets, daily range): BP systolic 122–153; BP diastolic 57–69; PULSE 56–87; RESP 18; TEMP 36.4; O2SAT 92–99; BMI 35.9
--- NOTE | 2022-01-05 08:32 | ED_ITS ---
HPI - Nausea/Vomiting/Diarrhea General Chief complaint: Nausea/Vomiting/Diarrhea Stated complaint: thinks has C-diff again Time Seen by Provider: 01/05/22 08:11 Source: patient and family Mode of arrival: Ambulatory Limitations: no limitations History of Present Illness HPI Narrative: This is a 76-year-old male who comes emergency department concern for C diff infection. Patient states in November he had an infection in his hand, he was admitted he developed a nose bleed had that cauterize and then developed COVID infection while in the hospital and then developed C diff infection while in the hospital. He states he was discharged home on vancomycin oral. He completed his antibiotic about 4 5 days ago. He has felt some gurgling sensation in his stomach for the last several days and then started having frequent diarrhea like stools overnight. 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 He is not sure if there might have been blood he denies fevers or chills. No chest pain or shortness of breath, no lightheadedness or passing out. He denies any abdominal pain. No nausea or vomiting. No dysuria urgency or frequency. He states he had about stools every 45 minutes overnight probably 10-11 total. The he is on apixaban or Eliquis, has a prior CABG, hypertension, dyslipidemia and diabetes with no gastro paresis. He also has bilateral lower extremity amputations. Patient follows with Dr. Montero for his primary care. He has been using probiotics. Related Data Home Medications Medication Instructions Recorded Confirmed aspirin 81 mg tablet,delayed 2 tab PO DAILY 09/16/18 12/13/21 release apixaban 5 mg tablet 5 mg PO BID tab 08/22/21 12/13/21 Previous Rx's Medication Instructions Recorded metoprolol tartrate 100 mg tablet See Rx Instructions .ROUTE 10/16/20 .COMPLEX #180 tablet furosemide 20 mg tablet 20 mg PO QDAY #90 tab 10/20/20 losartan 25 mg tablet 25 mg PO DAILY #90 tab 10/20/20 Syringes: 1cc Insulin Syringes #100 each 04/02/21 with [place] Liners, suspension sleeves, and #1 ea 09/11/21 socks levothyroxine 175 mcg tablet 175 mcg PO DAILY #90 tab 10/01/21 Glucose: Test Strips #250 ea 10/03/21 rosuvastatin 20 mg tablet 20 mg PO BEDTIME #90 tab 10/12/21 L.acidophilus-L.bulgar-B.bifid-S.thermoph 1 ea PO BID #120 tab 11/05/21 1 billion cell-250 mg tablet (Bacid) tamsulosin 0.4 mg capsule 0.4 mg PO BEDTIME #90 cap 11/13/21 insulin human U-100 NPH-regulr 40 unit (0.4 mL) SUBCUT BIDAC #24 01/02/22 70-30 mix 100 unit/mL subcutaneous ml susp (Humulin 70/30 U-100 Insulin) pantoprazole 40 mg tablet,delayed 40 mg PO DAILY #90 tab 01/02/22 release fidaxomicin 200 mg tablet (Dificid) 200 mg PO BID 10 Days #20 tab 01/05/22 Allergies Allergy/AdvReac Type Severity Reaction Status Date / Time cephalexin Allergy Severe Blister Verified 12/11/21 16:44 adhesive tape [ADHESIVE TAPE] AdvReac Mild PATIENT Verified 12/11/21 16:42 STATES IT PEELS HIS SKIN OFF lisinopril [LISINOPRIL] AdvReac Mild COUGH Verified 12/11/21 16:42 prochlorperazine AdvReac Unknown Verified 12/11/21 16:42 [PROCHLORPERAZINE] shellfish derived AdvReac Unknown Verified 12/11/21 16:42 [SHELLFISH DERIVED] Review of Systems Review of Systems ROS Unobtainable: All systems reviewed & are unremarkable except as noted in HPI and below Patient History Medical History Atrial fibrillation (Unknown) Carotid artery disease (Unknown) Coronary artery disease (Unknown) Diabetes (Unknown) Diabetes, type 1.5, uncontrolled, managed as type 2 Erectile dysfunction (Unknown) GERD (gastroesophageal reflux disease) (Unknown) Hepatitis C (Unknown) Hx of drug abuse Hyperlipemia (Unknown) Hypertension (Unknown) Hypothyroidism (Unknown) Measles (Unknown) Myocardial infarct (10/17/06) Obstructive sleep apnea (Unknown) Peripheral vascular disease (Unknown) Sacral back pain Surgical History History of open reduction and internal fixation (ORIF) procedure (09/2010) History of penile implant Hx of cataract surgery (~2004) Hx of coronary artery bypass surgery (10/2006) S/P bilateral below knee amputation (Unknown) Family History Father Age: 86 Heart disease ETOH abuse Mother Age: 94 Heart disease Alzheimer's dementia without behavioral disturbance, Alzheimer's disease of unspecified onset Social History household members: spouse Smoking Status: Never smoker alcohol intake: never substance use type: does not use Smoking Status: Never smoker alcohol intake frequency: holidays/special occasions only Substance Use Type: does not use Exam Narrative Exam Narrative: GENERAL: Alert and oriented x three, male in mild distress. HEENT: Head normocephalic, atraumatic, EOMI, pupils reactive, face symmetric, moist mucous membranes NECK: Supple, full range of motion CARDIOVASCULAR: Regular rate and rhythm without murmurs, rubs or gallops. RESPIRATORY: Breath sounds equal bilaterally, no wheezes rales or rhonchi. ABDOMEN: Soft, nontender. Normoactive bowel sounds all 4 quadrants. No guarding or rebound, rigidity, no mass : No CVA tenderness EXTREMITIES: Normal range of motion, patient has bilateral BKA. Neurovascularly intact NEUROLOGICAL: Cranial nerves II through XII grossly intact. Moving all extremities SKIN: Warm, dry, no petechiae, no rashes or lesions. Initial Vital Signs Initial Vital Signs: Vital Signs Temperature 97.5 F L 01/05/22 07:48 Pulse Rate 81 01/05/22 07:48 Respiratory Rate 18 01/05/22 07:48 Blood Pressure 153/65 H 01/05/22 07:48 Pulse Oximetry 98 01/05/22 07:48 Course Orders Ordered: ED Orders 01/05/22 10:30 GI Panel (Film Array) Stat Discontinued Medications Sodium Chloride (Normal Saline 0.9%) 1,000 mls @ 1,000 mls/hr IV BOLUS ONE Stop: 01/05/22 09:30 Last Infusion: 01/05/22 10:14 Dose: 0 mls/hr Documented by: Admin: 01/05/22 08:45 Dose: 1,000 mls/hr Documented by: LJ Reevaluation(s) Reevaluation #1: Labs reassuring. Patient has not been able to give stool sample up to this point. Time: 09:21 Vital Signs Vital signs: Vital Signs - 8 hr 01/05/22 11:34 01/05/22 11:35 01/05/22 12:44 Pulse Rate 75 86 87 Respiratory Rate Blood Pressure 153/65 H Pulse Oximetry 92 99 98 01/05/22 12:45 Pulse Rate 87 Respiratory Rate 18 Blood Pressure 141/63 H Pulse Oximetry 99 MDM - Nausea/Vomiting/Diarrhea Lab Data Result diagrams: 01/05/22 08:54 01/05/22 08:54 Labs: Lab Results 01/05/22 01/05/22 01/05/22 Range/Units 08:33 08:54 08:54 WBC 8.2 (4.5-11.0) X10^3/uL RBC 4.21 L (4.5-5.9) X10^6/uL Hgb 11.4 L (13.5-17.5) g/dL Hct 34.6 L (41-53) % MCV 82.3 (80-100) fL MCH 27.0 (26-34) PG MCHC 32.8 (30-36) % RDW 15.2 H (11.6-14.8) % Plt Count 159 (150-400) X10^3/uL Neut % (Auto) 77.7 H (50-75) % Lymph % (Auto) 11.7 L (25-40) % [place] % (Auto) 8.3 (3-14) % Eos % (Auto) 1.5 L (2-4) % Baso % (Auto) 0.8 (0-2) % Neut # (Auto) 6400 (5988-6442) /uL Lymph # (Auto) 1000 L (0950-5580) /uL [place] # (Auto) 700 (0-900) /uL Eos # (Auto) 100 (0-450) /uL Baso # (Auto) 100 (0-100) /uL Sodium 141 (137-145) mmol/L Potassium 4.3 (3.4-5.1) mmol/L Chloride 107 (98-107) mmol/L Carbon Dioxide 30 (22-32) mmol/L BUN 21 H (9-20) mg/dL Creatinine 0.67 (0.66-1.25) mg/dL Estimated GFR > 60.0 (>60) mL/min BUN/Creatinine Ratio 31.3 H (6-22) Glucose 194 H (80-110) mg/dL Calcium 9.2 (8.4-10.2) mg/dL Total Bilirubin 0.7 (0.2-1.3) mg/dL AST 28 (17-59) IU/L ALT 20 (<50) IU/L Alkaline Phosphatase 134 H (38-126) U/L Total Protein 7.1 (6.3-8.2) g/dL Albumin 4.3 (3.5-5.0) g/dL Globulin 2.8 (1.7-4.1) g/dL Albumin/Globulin Ratio 1.5 (1.0-2.8) Lipase 43 (23-300) U/L Urine Color Yellow Urine Appearance Clear Urine pH 5.0 (4.5-8.0) Ur Specific [place] 1.020 (1.000-1.035) Urine Protein Negative (Negative) Urine Glucose (UA) 2+ H (Negative) g/dL Urine Ketones Negative (NEGATIVE) Urine Occult Blood Trace-lysed (Negative) Urine Nitrate Negative (Negative) Urine Bilirubin Negative (NEGATIVE) Urine Urobilinogen 0.2 (0.2) E.U./dL Ur Leukocyte Esterase Negative (NEGATIVE) Urine RBC None seen (0-5/HPF) Urine WBC None seen (0-5/HPF) Urine Bacteria None seen (None) Ur Culture Indicated? Cult not indicated Micro UA Comment Microscopic normal Stl C. cayetanensis PCR (Not Detect) Stool Rotavirus (PCR) (Not Detect) Stool Adenovirus (PCR) (Not Detect) Stool Astrovirus (PCR) (Not Detect) Stool Cryptosporidium PCR (Not Detect) Stl E.coli Shiga Tox PCR (Not Detect) St Sh/Enteroin Ecoli PCR (Not Detect) Stool E coli O157 PCR (Not Detect) Stl Enterotoxigenic E PCR (Not Detect) Stool EPEC (PCR) (Not Detect) Stl E. histolytica PCR (Not Detect) Stool Giardia Lamblia PCR (Not Detect) Stool Sapovirus (PCR) (Not Detect) Stl P. shigelloides PCR (Not Detect) St Y.enterocolitica PCR (Not Detect) Stool Vibrio (PCR) (Not Detect) Stl Vibrio cholerae PCR (Not Detect) Stl Enteroaggr Ecoli PCR (Not Detect) Stl Norovirus GI/GII PCR (Not Detect) Campylobacter (PCR) (Not Detect) C. difficile Tox (PCR) (Not Detect) Salmonella (PCR) (Not Detect) 01/05/22 Range/Units 10:30 WBC (4.5-11.0) X10^3/uL RBC (4.5-5.9) X10^6/uL Hgb (13.5-17.5) g/dL Hct (41-53) % MCV (80-100) fL MCH (26-34) PG MCHC (30-36) % RDW (11.6-14.8) % Plt Count (150-400) X10^3/uL Neut % (Auto) (50-75) % Lymph % (Auto) (25-40) % [place] % (Auto) (3-14) % Eos % (Auto) (2-4) % Baso % (Auto) (0-2) % Neut # (Auto) (9100-9507) /uL Lymph # (Auto) (0320-9343) /uL [place] # (Auto) (0-900) /uL Eos # (Auto) (0-450) /uL Baso # (Auto) (0-100) /uL Sodium (137-145) mmol/L Potassium (3.4-5.1) mmol/L Chloride (98-107) mmol/L Carbon Dioxide (22-32) mmol/L BUN (9-20) mg/dL Creatinine (0.66-1.25) mg/dL Estimated GFR (>60) mL/min BUN/Creatinine Ratio (6-22) Glucose (80-110) mg/dL Calcium (8.4-10.2) mg/dL Total Bilirubin (0.2-1.3) mg/dL AST (17-59) IU/L ALT (<50) IU/L Alkaline Phosphatase (38-126) U/L Total Protein (6.3-8.2) g/dL Albumin (3.5-5.0) g/dL Globulin (1.7-4.1) g/dL Albumin/Globulin Ratio (1.0-2.8) Lipase (23-300) U/L Urine Color Urine Appearance Urine pH (4.5-8.0) Ur Specific [place] (1.000-1.035) Urine Protein (Negative) Urine Glucose (UA) (Negative) g/dL Urine Ketones (NEGATIVE) Urine Occult Blood (Negative) Urine Nitrate (Negative) Urine Bilirubin (NEGATIVE) Urine Urobilinogen (0.2) E.U./dL Ur Leukocyte Esterase (NEGATIVE) Urine RBC (0-5/HPF) Urine WBC (0-5/HPF) Urine Bacteria (None) Ur Culture Indicated? Micro UA Comment Stl C. cayetanensis PCR Not detected (Not Detect) Stool Rotavirus (PCR) Not detected (Not Detect) Stool Adenovirus (PCR) Not detected (Not Detect) Stool Astrovirus (PCR) Not detected (Not Detect) Stool Cryptosporidium PCR Not detected (Not Detect) Stl E.coli Shiga Tox PCR Not detected (Not Detect) St Sh/Enteroin Ecoli PCR Not detected (Not Detect) Stool E coli O157 PCR Not detected (Not Detect) Stl Enterotoxigenic E PCR Not detected (Not Detect) Stool EPEC (PCR) Not detected (Not Detect) Stl E. histolytica PCR Not detected (Not Detect) Stool Giardia Lamblia PCR Not detected (Not Detect) Stool Sapovirus (PCR) Not detected (Not Detect) Stl P. shigelloides PCR Not detected (Not Detect) St Y.enterocolitica PCR Not detected (Not Detect) Stool Vibrio (PCR) Not detected (Not Detect) Stl Vibrio cholerae PCR Not detected (Not Detect) Stl Enteroaggr Ecoli PCR Not detected (Not Detect) Stl Norovirus GI/GII PCR Not detected (Not Detect) Campylobacter (PCR) Not detected (Not Detect) C. difficile Tox (PCR) Detected H (Not Detect) Salmonella (PCR) Not detected (Not Detect) Point of Care Testing Glucose POC 224 MDM Narrative Medical decision making narrative: This is a 76-year-old male who comes with frequent diarrhea overnight with otherwise hypertension but reassuring vitals. Patient's exam is also reassuring but he had recent C diff infection had just completed his antibiotics for 5 days ago and having new frequent diarrhea. Attempted to obtained GI panel which was found + for C Diff. patient was given prescription for dificid antibiotic. Patient called back after discharge. He states that his antibiotic prescription is 1500 dollars and he cannot afford this. Plan to change to Flagyl 500mg po TID x 14 days and pharmacy called to verify. Discharge Plan Departure Patient Disposition: Home Clinical Impression: Diarrhea, C. difficile diarrhea Activity Restrictions/Additional Instructions: Follow up for recheck. Your C Diff testing is positive today. Continue with sanitizing the toilet at home issue were doing before. I would have you take oral antibiotic until completed. Start this medication today. Prescription sent to [facility]. You may continue your home medications as prescribed. Please return for fevers, abdominal, back or flank pain, vomiting, signs of dehydration, if you are able to appreciate bloody stools or other new or concerning symptoms. Prescriptions: New Dificid 200 mg tablet 200 mg PO BID 10 Days Qty: 20 0RF No Action metoprolol tartrate 100 mg tablet See Rx Instructions .ROUTE .COMPLEX Qty: 180 3RF Dose Instruction: take 1 tablet by mouth twice a day Rx Instructions: 100 BID furosemide 20 mg tablet 20 mg PO QDAY Qty: 90 3RF losartan 25 mg tablet 25 mg PO DAILY Qty: 90 3RF (DME) Syringes: 1cc Insulin Syringes with [place] 0 .Route .MEDSUPPLY Qty: 100 3RF Dose Instruction: As directed Rx Instructions: Use 1 syringe with 30x12.7 mm needle to inject insulin four times daily. apixaban 5 mg tablet 5 mg PO BID 0RF (DME) Liners, suspension sleeves, and socks See Rx Instructions .Route .MEDSUPPLY Qty: 1 0RF Rx Instructions: As directed levothyroxine 175 mcg tablet 175 mcg PO DAILY Qty: 90 3RF (DME) Glucose: Test Strips See Rx Instructions .Route .MEDSUPPLY Qty: 250 6RF Dose Instruction: QID; Rx Instructions: Test blood sugar four times a day or as directed by rosuvastatin 20 mg tablet 20 mg PO BEDTIME Qty: 90 3RF tamsulosin 0.4 mg capsule 0.4 mg PO BEDTIME Qty: 90 3RF Humulin 70/30 U-100 Insulin 100 unit/mL (70-30) suspension 40 unit SUBCUT BIDAC Qty: 24 5RF pantoprazole 40 mg tablet,delayed release (DR/EC) 40 mg PO DAILY Qty: 90 1RF Hold Instructions: taper with omeprazole aspirin 81 mg tablet,delayed release (DR/EC) 2 tab PO DAILY 0RF Bacid 1 billion cell- 250 mg Tablet 1 ea PO BID Qty: 120 0RF Referrals: Pb Montero MD [Primary Care Provider] -
[2022-01-05] MEDS: SODIUM CHLORIDE 0.9% 1,000 ML 1000 ML IV (08:45)
[2022-01-05 08:58] LABS: Appearance Urine UA CLEAR; Bilirubin Urine UA NEGATIVE (NEGATIVE); Color Urine UA YELLOW; Glucose Urine UA 2+ g/dL (Negative); Ketones Urine UA NEGATIVE (NEGATIVE); Leukocyte Esterase Urine UA NEGATIVE (NEGATIVE); Nitrite Urine UA NEGATIVE (Negative); Occult Blood Urine UA TRACE-LYSED (Negative); Protein Urine UA NEGATIVE (Negative); Urobilinogen Urine UA 0.2 E.U./dL (0.2)
[2022-01-05 09:00] LABS: Bacteria Urine None Seen; Culture Indicated Urine Cult Not Indicated; RBC Urine None Seen (0-5/HPF); Urine Comments Microscopic Normal; WBC Urine None Seen (0-5/HPF)
[2022-01-05 09:03] LABS: Add Manual Diff / Slide Review NO; Basophils Absolute Auto 100 /uL (0-100); Basophils Percent Auto 0.8 % (0-2); Eosinophils Absolute Auto 100 /uL (0-450); Eosinophils Percent Auto 1.5 % (2-4); Hematocrit 34.6 % (41-53); Hemoglobin 11.4 g/dL (13.5-17.5); Lymphocytes Absolute Auto 1000 /uL (1100-4500); Lymphocytes Percent Auto 11.7 % (25-40); Mean Corpuscular HGB Conc 32.8 % (30-36); Mean Corpuscular Volume 82.3 fL (80-100); Monocytes Absolute Auto 700 /uL (0-900); Monocytes Percent Auto 8.3 % (3-14); Neutrophils Absolute Auto 6400 /uL (1500-7000); Neutrophils Percent Auto 77.7 % (50-75); Platelet Count 159 X10^3/uL (150-400); Red Blood Cell Count 4.21 X10^6/uL (4.5-5.9); Red Cell Distribution Width 15.2 % (11.6-14.8); White Blood Cell Count 8.2 X10^3/uL (4.5-11.0)
[2022-01-05 09:14] LABS: Alanine Aminotransferase 20 IU/L (<50); Albumin 4.3 g/dL (3.5-5.0); Albumin Globulin Ratio 1.5 (1.0-2.8); Alkaline Phosphatase 134 U/L (38-126); Aspartate Aminotransferase 28 IU/L (17-59); BUN Creatinine Ratio 31.3 (6-22); Bilirubin Total 0.7 mg/dL (0.2-1.3); Blood Urea Nitrogen 21 mg/dL (9-20); Calcium 9.2 mg/dL (8.4-10.2); Carbon Dioxide 30 mmol/L (22-32); Chloride 107 mmol/L (98-107); Estimated Glomerular Filt Rate > 60.0 mL/min (>60); Globulin 2.8 g/dL (1.7-4.1); Glucose 194 mg/dL (80-110); HEMOLYSIS < 15 (0-50); Lipase 43 U/L (23-300); Potassium 4.3 mmol/L (3.4-5.1); Sodium 141 mmol/L (137-145); Total Protein 7.1 g/dL (6.3-8.2)
[2022-01-05 12:00] LABS: Adenovirus F 40/41 Not Detected (Not Detect); Astrovirus Not Detected (Not Detect); Campylobacter Not Detected (Not Detect); Clostridium difficile toxin AB Detected (Not Detect); Cryptosporidium Not Detected (Not Detect); Cyclospora cayetanensis Not Detected (Not Detect); Entamoeba histolytica Not Detected (Not Detect); Enteroaggregative E.coli Not Detected (Not Detect); Enteropathogenic E.coli Not Detected (Not Detect); Enterotoxigenic E.coli It/st Not Detected (Not Detect); Giardia lamblia Not Detected (Not Detect); Norovirus GI/GII Not Detected (Not Detect); Plesiomonsa shigelloides Not Detected (Not Detect); Rotavirus A Not Detected (Not Detect); Salmonella Not Detected (Not Detect); Sapovirus Not Detected (Not Detect); Shiga-like toxin-prod E.coli Not Detected (Not Detect); Shigella/Enteroinvasive E.coli Not Detected (Not Detect); Vibrio Not Detected (Not Detect); Vibrio cholerae Not Detected (Not Detect); Yersinia enterocolitica Not Detected (Not Detect)
[2022-01-06 15:14] LABS: C difficie Toxins A and B, EIA Negative (Negative)
== END 2022-01-05 12:48 | disposition home or self-care (01) ==
PROVIDERS: Emergency Provider Emergency Medicine; PCP Student in an Organized Health Care Education/Training Program
DX: A04.71 Enterocolitis due to Clostridium difficile, recurrent (principal)
CPT/HCPCS: 36415; 80053; 81001; 82962; 83690; 85025; 87324; 87507; 96360; 99284

== ENCOUNTER → 2022-03-29 07:09 | Outpatient (CLI) | payer MEDICARE, OTHER, SELFPAY ==
[2021-12-13 21:38] VITALS: BMI 32.1
[2022-03-29 08:13] LABS: Add Manual Diff / Slide Review NO; Basophils Absolute Auto 0 /uL (0-100); Basophils Percent Auto 0.5 % (0-2); Eosinophils Absolute Auto 200 /uL (0-450); Eosinophils Percent Auto 2.6 % (2-4); Hemoglobin 12.7 g/dL (13.5-17.5); Lymphocytes Absolute Auto 1600 /uL (1100-4500); Lymphocytes Percent Auto 25.4 % (25-40); Mean Corpuscular HGB Conc 32.7 % (30-36); Mean Corpuscular Hemoglobin 25.7 PG (26-34); Mean Corpuscular Volume 78.5 fL (80-100); Monocytes Absolute Auto 500 /uL (0-900); Monocytes Percent Auto 8.7 % (3-14); Neutrophils Absolute Auto 4000 /uL (1500-7000); Neutrophils Percent Auto 62.8 % (50-75); Platelet Count 184 X10^3/uL (150-400); Red Blood Cell Count 4.96 X10^6/uL (4.5-5.9); White Blood Cell Count 6.3 X10^3/uL (4.5-11.0)
[2022-03-29 08:52] LABS: Hemoglobin A1C% w Est Avg Glu 9.7 % (4.0-6.0)
[2022-03-29 08:53] LABS: Alanine Aminotransferase 14 IU/L (<50); Albumin Globulin Ratio 1.3 (1.0-2.8); Alkaline Phosphatase 105 U/L (38-126); Aspartate Aminotransferase 25 IU/L (17-59); BUN Creatinine Ratio 29.9 (6-22); Bilirubin Total 0.5 mg/dL (0.2-1.3); Blood Urea Nitrogen 23 mg/dL (9-20); Calcium 9.1 mg/dL (8.4-10.2); Carbon Dioxide 31 mmol/L (22-32); Chloride 103 mmol/L (98-107); Estimated Glomerular Filt Rate > 60 mL/min (>60); Globulin 3.1 g/dL (1.7-4.1); Glucose 111 mg/dL (80-110); HEMOLYSIS < 15 (0-50); Potassium 4.2 mmol/L (3.4-5.1); Sodium 138 mmol/L (137-145); Total Protein 7.1 g/dL (6.3-8.2)
[2022-03-29 09:24] LABS: Creatinine Urine Random 85.7 mg/dL
[2022-03-29 09:28] LABS: Microalbumi Creatinin Ratio Ur 116.6 ug/mg CR (<30)
== END ==
PROVIDERS: PCP Student in an Organized Health Care Education/Training Program; Referring Provider Student in an Organized Health Care Education/Training Program; Visit Provider Student in an Organized Health Care Education/Training Program
DX: E11.65 Type 2 diabetes mellitus with hyperglycemia (principal); E78.5 Hyperlipidemia, unspecified; F19.90 Other psychoactive substance use, unspecified, uncomplicated; I10 Essential (primary) hypertension
CPT/HCPCS: 36415; 80053; 82043; 82570; 83036; 85025

== ENCOUNTER → 2022-09-09 08:29 | Outpatient (CLI) | payer MEDICARE, OTHER, SELFPAY ==
[2021-12-13 21:38] VITALS: BMI 32.1
[2022-09-09 09:45] LABS: Hematocrit 41.6 % (41-53); Hemoglobin 14.4 g/dL (13.5-17.5); Mean Corpuscular HGB Conc 34.6 % (30-36); Mean Corpuscular Volume 80.8 fL (80-100); Platelet Count 173 X10^3/uL (150-400); Red Blood Cell Count 5.14 X10^6/uL (4.5-5.9); Red Cell Distribution Width 14.1 % (11.6-14.8); White Blood Cell Count 7.1 X10^3/uL (4.5-11.0)
[2022-09-09 09:58] LABS: Hemoglobin A1C% w Est Avg Glu 9.4 % (4.0-6.0)
[2022-09-09 10:29] LABS: Alanine Aminotransferase 17 IU/L (<50); Albumin 4.1 g/dL (3.5-5.0); Albumin Globulin Ratio 1.3 (1.0-2.8); Alkaline Phosphatase 137 U/L (38-126); Aspartate Aminotransferase 22 IU/L (17-59); BUN Creatinine Ratio 24.3 (6-22); Bilirubin Total 0.8 mg/dL (0.2-1.3); Blood Urea Nitrogen 18 mg/dL (9-20); Calcium 9.6 mg/dL (8.4-10.2); Carbon Dioxide 27 mmol/L (22-32); Chloride 100 mmol/L (98-107); Estimated Glomerular Filt Rate > 60 mL/min (>60); Globulin 3.1 g/dL (1.7-4.1); Glucose 187 mg/dL (80-110); HEMOLYSIS < 15 (0-50); Potassium 4.2 mmol/L (3.4-5.1); Sodium 139 mmol/L (137-145); Total Protein 7.2 g/dL (6.3-8.2)
== END ==
PROVIDERS: PCP Student in an Organized Health Care Education/Training Program; Referring Provider Student in an Organized Health Care Education/Training Program; Visit Provider Student in an Organized Health Care Education/Training Program
DX: E13.65 Other specified diabetes mellitus with hyperglycemia (principal); F11.20 Opioid dependence, uncomplicated; F19.90 Other psychoactive substance use, unspecified, uncomplicated; R80.9 Proteinuria, unspecified
CPT/HCPCS: 36415; 80053; 83036; 85027

== ENCOUNTER 2022-10-10 20:05 | Emergency (ER) | payer MEDICARE, OTHER, SELFPAY ==
[2021-12-13 21:38] VITALS: BMI 32.1
[2022-10-10] VITALS (8 sets, daily range): BP systolic 126–143; BP diastolic 67–99; PULSE 80–101; RESP 13–23; O2SAT 93–97
--- NOTE | 2022-10-10 20:32 | DI.RAD.S_ITS ---
PROCEDURE: XR CHEST 2V INDICATIONS: SOB TECHNIQUE: 2 views of the chest were acquired. COMPARISON: [facility], , XR CHEST 1V, 11/03/2021, 1:20. FINDINGS: Surgical changes and devices: Postsurgical changes redemonstrated within the mediastinum. Lungs and pleura: There is mild pulmonary edema. No focal consolidation. There is hyperinflation of the lungs with flattening of the hemidiaphragms compatible with COPD. No pleural effusions or pneumothorax. Mediastinum: Mediastinal contours are normal. Heart size is normal. Bones and chest wall: No suspicious bony abnormalities. Soft tissues appear unremarkable. IMPRESSION: 1. Mild pulmonary edema and findings compatible with COPD. Dictated by: Edd Catalan M.D. on 10/10/2022 at 21:45 Approved by: Edd Catalan M.D. on 10/10/2022 at 21:46
[2022-10-10 20:58] LABS: Bacteria Urine Occasional (0-1); RBC Urine 10-30/HPF (0-5/HPF); Squamous Epithelial Cell Urine 0-1 /HPF (0-5/HPF); WBC Urine 30-100/HPF (0-5/HPF)
[2022-10-10 21:08] LABS: Add Manual Diff / Slide Review NO; Basophils Absolute Auto 100 /uL (0-100); Basophils Percent Auto 0.7 % (0-2); Eosinophils Absolute Auto 200 /uL (0-450); Eosinophils Percent Auto 2.1 % (2-4); Hematocrit 38.3 % (41-53); Hemoglobin 12.8 g/dL (13.5-17.5); Lymphocytes Absolute Auto 1500 /uL (1100-4500); Mean Corpuscular HGB Conc 33.4 % (30-36); Mean Corpuscular Hemoglobin 27.5 PG (26-34); Mean Corpuscular Volume 82.2 fL (80-100); Monocytes Absolute Auto 500 /uL (0-900); Monocytes Percent Auto 6.1 % (3-14); Neutrophils Absolute Auto 5800 /uL (1500-7000); Neutrophils Percent Auto 72.1 % (50-75); Platelet Count 196 X10^3/uL (150-400); Red Blood Cell Count 4.65 X10^6/uL (4.5-5.9); Red Cell Distribution Width 14.6 % (11.6-14.8)
[2022-10-10 21:17] LABS: Alanine Aminotransferase 18 IU/L (<50); Albumin 3.7 g/dL (3.5-5.0); Albumin Globulin Ratio 1.2 (1.0-2.8); Alkaline Phosphatase 150 U/L (38-126); Aspartate Aminotransferase 23 IU/L (17-59); Bilirubin Total 0.4 mg/dL (0.2-1.3); Blood Urea Nitrogen 20 mg/dL (9-20); Carbon Dioxide 26 mmol/L (22-32); Chloride 100 mmol/L (98-107); Creatine Kinase 34 U/L (55-170); Estimated Glomerular Filt Rate > 60 mL/min (>60); Globulin 3.2 g/dL (1.7-4.1); Glucose 381 mg/dL (80-110); HEMOLYSIS 30 (0-50); Magnesium 1.6 mg/dL (1.6-2.3); Potassium 4.7 mmol/L (3.4-5.1); Sodium 136 mmol/L (137-145); Total Protein 6.9 g/dL (6.3-8.2)
[2022-10-10 21:29] LABS: NT-proBNP (BNP-Adult 18+) 601 pg/mL (<450); Troponin I < 0.012 ng/mL (0.01-0.034)
[2022-10-10 21:33] LABS: Procalcitonin 0.08 ng/mL (<0.5)
--- NOTE | 2022-10-10 21:48 | ED_ITS ---
HPI - General Adult General Chief complaint: Urogenital-Male Stated complaint: Lungs are crackling, Can't pee Time Seen by Provider: 10/10/22 20:28 Source: patient Mode of arrival: Ambulatory History of Present Illness HPI narrative: 76-year-old male former smoker with history of coronary artery disease, prior IV drug abuse, diabetes, hyperlipidemia and AFib on anticoagulation presents with a chief complaint of some shortness of breath and crackling in his lungs for the past few days. He denies any fever chills. He states that he feels slightly more short of breath today than he had. He saw his primary care provider who was supposed to call in an antibiotic but there was a miscommunication and he is gone without. He denies headache or blurry vision. He is had no runny nose, sore throat. He denies abdominal pain, constipation or diarrhea. He states that he is had some urinary complaints as well. Denies any changes medications, he states he does take a ?water pill? but denies any change or missed doses Related Data Home Medications Medication Instructions Recorded Confirmed aspirin 81 mg tablet,delayed 2 tab PO DAILY 09/16/18 10/08/22 release apixaban 5 mg tablet 5 mg PO BID 08/22/21 10/08/22 Previous Rx's Medication Instructions Recorded metoprolol tartrate 100 mg tablet See Rx Instructions .Route 10/16/20 .COMPLEX #180 tabs furosemide 20 mg tablet 20 mg PO QDAY #90 tabs 10/20/20 losartan 25 mg tablet 25 mg PO DAILY #90 tabs 10/20/20 Liners, suspension sleeves, and #1 ea 09/11/21 socks levothyroxine 175 mcg tablet 175 mcg PO DAILY #90 tabs 10/01/21 Glucose: Test Strips #250 ea 10/03/21 rosuvastatin 20 mg tablet 20 mg PO BEDTIME #90 tabs 10/12/21 L.acidophilus-L.bulgar-B.bifid-S.thermoph 1 ea PO BID #120 tabs 11/05/21 1 billion cell-250 mg tablet (Bacid) tamsulosin 0.4 mg capsule 0.4 mg PO BEDTIME #90 caps 11/13/21 Syringes: 1cc Insulin Syringes #100 ea 01/21/22 with [place] insulin human U-100 NPH-regulr 40 unit (0.4 mL) SUBCUT .BIDAC #30 09/18/22 70-30 mix 100 unit/mL subcutaneous mL susp (Novolin 70/30 U-100 Insulin) levofloxacin 750 mg tablet 750 mg PO DAILY #5 tabs 10/10/22 Allergies Allergy/AdvReac Type Severity Reaction Status Date / Time cephalexin Allergy Severe Blister Verified 10/08/22 16:26 adhesive tape [ADHESIVE TAPE] AdvReac Mild PATIENT Verified 10/08/22 16:26 STATES IT PEELS HIS SKIN OFF lisinopril [LISINOPRIL] AdvReac Mild COUGH Verified 10/08/22 16:26 prochlorperazine AdvReac Unknown Verified 10/08/22 16:26 [PROCHLORPERAZINE] shellfish derived AdvReac Unknown Verified 10/08/22 16:26 [SHELLFISH DERIVED] Review of Systems Review of Systems Narrative: GENERAL: See HPI HEENT: Denies sinus pain, ear pain, sore throat, difficulty swallowing, dizzines s. RESPIRATORY: See HPI CARDIOVASCULAR: See HPI GASTROINTESTINAL: Denies nausea, vomiting, abdominal pain, diarrhea, constipation, melena. : Denies dysuria, frequency, incontinence, hematuria, urinary retention. MUSCULOSKELETAL: denies weakness, joint pain, or bony pain SKIN: Denies rash, skin lesions, or other NEUROLOGIC: Denies weakness, headache, numbness, change in speech, confusion, seizures, incoordination. PSYCHIATRIC: No concerning psychosocial issues. 12 point review of systems is negative except for those stated above Patient History Medical History (Updated 10/10/22 @ 22:00 by Murtaza Watson DO) Atrial fibrillation (Unknown) Carotid artery disease (Unknown) Coronary artery disease involving coronary bypass graft of [place] heart without angina pectoris (09/11/15) Diabetes, type 1.5, uncontrolled, managed as type 2 Erectile dysfunction (Unknown) GERD (gastroesophageal reflux disease) (Unknown) Hepatitis C (Unknown) Hx of drug abuse Hyperlipemia (Unknown) Hypertension (Unknown) Hypothyroidism (Unknown) Measles (Unknown) Myocardial infarct (10/17/06) Obstructive sleep apnea (Unknown) Peripheral vascular disease (Unknown) Sacral back pain Surgical History History of open reduction and internal fixation (ORIF) procedure (09/2010) History of penile implant Hx of cataract surgery (~2004) Hx of coronary artery bypass surgery (10/2006) S/P bilateral below knee amputation (Unknown) Family History Father Age: 87 Heart disease ETOH abuse Mother Age: 95 Heart disease Alzheimer's dementia without behavioral disturbance, Alzheimer's disease of unspecified onset Social History household members: spouse Smoking Status: Former smoker alcohol intake: never substance use type: does not use Smoking Status: Former smoker alcohol intake frequency: holidays/special occasions only Substance Use Type: does not use Exam Narrative Exam Narrative: GENERAL: [76] year old patient appears stated age. Well-developed patient, in mild distress. HEAD: Atraumatic. Normocephalic. EYES: Pupils equal round and reactive. Extraocular motions intact. No scleral icterus. No injection or drainage. ENT: Nose without bleeding, purulent drainage. Throat without erythema, tonsillar hypertrophy or exudate. Airway patent. NECK: Trachea midline. Non tender CARDIOVASCULAR: Regular rate and rhythm without murmurs, gallops, or rubs. RESPIRATORY: Faint crackles in bilateral bases. GASTROINTESTINAL: Abdomen soft, non-tender, nondistended. EXTREMITIES: No edema or joint tenderness. BACK: Nontender without deformity or crepitance. No flank tenderness. NEURO: AOx3. SKIN: No rash or erythema of visible areas Initial Vital Signs Initial Vital Signs: Vital Signs Pulse Rate 101 H 10/10/22 20:18 Respiratory Rate 20 10/10/22 20:18 Blood Pressure 132/90 10/10/22 20:18 Pulse Oximetry 93 10/10/22 20:18 Oxygen Delivery Method 10/10/22 20:18 Course Orders Ordered: Discontinued Medications Levofloxacin (Levofloxacin 250 Mg Tablet) 750 mg PO NOW ONE Stop: 10/10/22 22:03 Last Admin: 10/10/22 22:06 Dose: 750 mg Documented By: COMPA Vital Signs Vital signs: Vital Signs - 8 hr 10/10/22 20:18 10/10/22 20:35 Pulse Rate 101 H 91 H Respiratory Rate 20 13 Blood Pressure 132/90 Pulse Oximetry 93 Oxygen Delivery Method Room Air Medical Decision Making Lab Data Result diagrams: 10/10/22 20:45 10/10/22 20:45 Labs: Lab Results 10/10/22 10/10/22 10/10/22 Range/Units 20:26 20:37 20:45 WBC 8.0 (4.5-11.0) X10^3/uL RBC 4.65 (4.5-5.9) X10^6/uL Hgb 12.8 L (13.5-17.5) g/dL Hct 38.3 L (41-53) % MCV 82.2 (80-100) fL MCH 27.5 (26-34) PG MCHC 33.4 (30-36) % RDW 14.6 (11.6-14.8) % Plt Count 196 (150-400) X10^3/uL Neut % (Auto) 72.1 (50-75) % Lymph % (Auto) 19.0 L (25-40) % [place] % (Auto) 6.1 (3-14) % Eos % (Auto) 2.1 (2-4) % Baso % (Auto) 0.7 (0-2) % Neut # (Auto) 5800 (7094-4461) /uL Lymph # (Auto) 1500 (9939-0201) /uL [place] # (Auto) 500 (0-900) /uL Eos # (Auto) 200 (0-450) /uL Baso # (Auto) 100 (0-100) /uL Sodium (137-145) mmol/L Potassium (3.4-5.1) mmol/L Chloride (98-107) mmol/L Carbon Dioxide (22-32) mmol/L BUN (9-20) mg/dL Creatinine (0.66-1.25) mg/dL Estimated GFR (>60) mL/min BUN/Creatinine Ratio (6-22) Glucose (80-110) mg/dL Lactate (0.7-2.1) mmol/L Calcium (8.4-10.2) mg/dL Magnesium (1.6-2.3) mg/dL Total Bilirubin (0.2-1.3) mg/dL AST (17-59) IU/L ALT (<50) IU/L Alkaline Phosphatase (38-126) U/L Total Creatine Kinase (55-170) U/L CK-MB (CK-2) CK-MB (CK-2) Rel Index Troponin I (0.01-0.034) ng/mL NT-Pro-B Natriuret Pep (<450) pg/mL Total Protein (6.3-8.2) g/dL Albumin (3.5-5.0) g/dL Globulin (1.7-4.1) g/dL Albumin/Globulin Ratio (1.0-2.8) Procalcitonin (<0.5) ng/mL Urine RBC 10-30/hpf H (0-5/HPF) Urine WBC 30-100/hpf H (0-5/HPF) Ur Squamous Epith Cells 0-1 /hpf (0-5/HPF) Urine Bacteria Occasional (0-1) (None) SARS-CoV-2 (PCR) Negative (Negative) Influenza A (RT-PCR) Flu a negative (NEGATIVE) Influenza B (RT-PCR) Flu b negative (NEGATIVE) RSV (PCR) Negative (Negative) 10/10/22 10/10/22 10/10/22 Range/Units 20:45 20:45 20:45 WBC (4.5-11.0) X10^3/uL RBC (4.5-5.9) X10^6/uL Hgb (13.5-17.5) g/dL Hct (41-53) % MCV (80-100) fL MCH (26-34) PG MCHC (30-36) % RDW (11.6-14.8) % Plt Count (150-400) X10^3/uL Neut % (Auto) (50-75) % Lymph % (Auto) (25-40) % [place] % (Auto) (3-14) % Eos % (Auto) (2-4) % Baso % (Auto) (0-2) % Neut # (Auto) (2710-9796) /uL Lymph # (Auto) (9844-1175) /uL [place] # (Auto) (0-900) /uL Eos # (Auto) (0-450) /uL Baso # (Auto) (0-100) /uL Sodium 136 L (137-145) mmol/L Potassium 4.7 (3.4-5.1) mmol/L Chloride 100 (98-107) mmol/L Carbon Dioxide 26 (22-32) mmol/L BUN 20 (9-20) mg/dL Creatinine 0.77 (0.66-1.25) mg/dL Estimated GFR > 60 (>60) mL/min BUN/Creatinine Ratio 26.0 H (6-22) Glucose 381 H (80-110) mg/dL Lactate 2.0 (0.7-2.1) mmol/L Calcium 9.0 (8.4-10.2) mg/dL Magnesium 1.6 (1.6-2.3) mg/dL Total Bilirubin 0.4 (0.2-1.3) mg/dL AST 23 (17-59) IU/L ALT 18 (<50) IU/L Alkaline Phosphatase 150 H (38-126) U/L Total Creatine Kinase 34 L (55-170) U/L CK-MB (CK-2) TNP CK-MB (CK-2) Rel Index TNP Troponin I < 0.012 (0.01-0.034) ng/mL NT-Pro-B Natriuret Pep 601 H (<450) pg/mL Total Protein 6.9 (6.3-8.2) g/dL Albumin 3.7 (3.5-5.0) g/dL Globulin 3.2 (1.7-4.1) g/dL Albumin/Globulin Ratio 1.2 (1.0-2.8) Procalcitonin 0.08 (<0.5) ng/mL Urine RBC (0-5/HPF) Urine WBC (0-5/HPF) Ur Squamous Epith Cells (0-5/HPF) Urine Bacteria (None) SARS-CoV-2 (PCR) (Negative) Influenza A (RT-PCR) (NEGATIVE) Influenza B (RT-PCR) (NEGATIVE) RSV (PCR) (Negative) Urine Dip Bedside Urine Glucose 1000 mg/dl Bedside Urine Bilirubin - Negative Bedside Urine Ketone - Negative Urine Specific [place] 1.020 Bedside Urine Occult Blood +++ Bedside Urine pH 5 Bedside Urine Protein + 30 Bedside Urine Urobilinogen - Negative Bedside Urine Nitrite - Negative Bedside Urine Leukocytes + 70 Esterase Point of care testing: Urine Dip Bedside Urine Glucose 1000 mg/dl Bedside Urine Bilirubin - Negative Bedside Urine Ketone - Negative Urine Specific [place] 1.020 Bedside Urine Occult Blood +++ Bedside Urine pH 5 Bedside Urine Protein + 30 Bedside Urine Urobilinogen - Negative Bedside Urine Nitrite - Negative Bedside Urine Leukocytes + 70 Esterase Imaging Data Chest x-ray: Radiologist's Impression: Tulio Yi?(Ankit)??76??M??1945 ? Allergy/Adv: cephalexin, adhesive tape, lisinopril, prochlorperazine, shellfish derived (More??) Close Chest X-Ray (Signed) Edd Catalan - 10/10/22 Telemetry Strips 12/13/21 Chest/Abdomen X-ray (Signed) Jordy Edwards - 12/13/21 Telemetry Strips 11/06/21 Telemetry Strips 11/06/[address] (Signed) Vik Cruz - 11/06/21 Chest X-Ray (Signed) Starla Jimenez - 11/03/21 Hand X-Ray (Signed) Paulino Murphy - 10/31/21 Lumbar Spine MRI (Signed) Vik Cruz - 01/09/21 SI Joint X-Ray (Signed) Aly Goff - 01/02/21 Elbow X-Ray (Signed) Patrick Mendoza - 12/14/20 Pelvis MRI (Signed) Saul Marie - 12/04/20 Lumbar Spine X-Ray (Signed) Mitch Roldan - 11/16/20 Echocardiogram Ultrasound (Signed) Figueroa Mendoza - 09/20/19 Sc[place]um Ultrasound (Signed) Gina Valente - 08/27/19 Telemetry Strips 02/15/19 Chest X-Ray (Signed) Monique Odroñez - 02/15/19 Echocardiogram Ultrasound (Signed) Nuris Templeton - 02/15/[address] (Signed) Paulino Murphy - 02/04/[address] (Signed) Paulino Murphy - 02/04/19 Pelvis MRI (Signed) Edd Catalan - 09/24/18 Bladder Scan 09/16/18 Lumbar Spine MRI (Signed) Andrea Rush - 09/16/18 Chest X-Ray (Signed) Aly Goff - 06/15/18 Pelvis X-Ray (Signed) Saul Marie - 06/15/[address] (Signed) Gina Valente - 06/15/[address] (Signed) Gina Valente - 06/15/18 Chest/Abdomen/Pelvis CT (Signed) Gina Valente - 06/15/[address] (Signed) Gina Valente - 06/15/18 Launch?Image [address] [address] XRay Report Signed Patient: Tulio Yi MR#: [id number] : 1945 Acct:[id number] Age/Sex: 76 / M Date of Service: 10/10/22 Loc: ED Accession Number: [id number] ?? Procedure: XR chest 2V Ordering Provider: Murtaza Watson D.O. PROCEDURE:? XR CHEST 2V ? INDICATIONS:? SOB ? TECHNIQUE:? 2 views of the chest were acquired.? ? COMPARISON:? [facility], , XR CHEST 1V, 11/03/2021, 1:20. ? FINDINGS:? ? Surgical changes and devices:? Postsurgical changes redemonstrated within the mediastinum. ? Lungs and pleura:? There is mild pulmonary edema.? No focal consolidation.? There is hyperinflation of the lungs with flattening of the hemidiaphragms compatible with COPD.? No pleural effusions or pneumothorax.? ? Mediastinum:? Mediastinal contours are normal.? Heart size is normal.? ? Bones and chest wall:? No suspicious bony abnormalities.? Soft tissues appear unremarkable.? ? IMPRESSION:? ? 1. Mild pulmonary edema and findings compatible with COPD. ? ? Dictated by: Edd Catalan M.D. on 10/10/2022 at 21:45 ? ? Approved by: Edd Catalan M.D. on 10/10/2022 at 21:46 ? Discharge Plan Departure Patient Disposition: Home Clinical Impression: Acute UTI, Pulmonary edema Instructions: DI for Heart Failure, DI for Urinary Tract Infection (UTI) Activity Restrictions/Additional Instructions: *You have been diagnosed with [urinary tract infection and shortness of breath likely due to some increased fluid in your lungs and possible early pneumonia. The antibiotic that we have given you will cover both the urine infection and the possibility of lung infection] *What to do: *Please increase your Lasix from 20 mg daily to 40 mg daily for the next 3 days and then returned to normal [ x] New medication prescriptions sent to your pharmacy: [ ] [ ] New medication written as a paper prescription [ ] No new medications given *Please follow up with your primary care provider in 2-3 days, call for an appointment. Let them know you were seen in the Emergency Department and that we ask that you be seen in follow up. We will electronically transmit a record of today's note if your PCP is in our system *Return to Emergency Department if you should have any new, worsening or concerning symptoms, such as [fever greater than 101 F, shaking chills, worsening pain, persistent vomiting or other bothersome symptoms] Prescriptions: New levofloxacin 750 mg tablet 750 mg PO DAILY Qty: 5 0RF No Action metoprolol tartrate 100 mg tablet See Rx Instructions .ROUTE .COMPLEX Qty: 180 3RF Dose Instruction: take 1 tablet by mouth twice a day Rx Instructions: 100 BID furosemide 20 mg tablet 20 mg PO QDAY Qty: 90 3RF losartan 25 mg tablet 25 mg PO DAILY Qty: 90 3RF apixaban 5 mg tablet 5 mg PO BID (DME) Liners, suspension sleeves, and socks See Rx Instructions .Route .MEDSUPPLY Qty: 1 0RF Rx Instructions: As directed levothyroxine 175 mcg tablet 175 mcg PO DAILY Qty: 90 3RF (DME) Glucose: Test Strips See Rx Instructions .Route .MEDSUPPLY Qty: 250 6RF Dose Instruction: QID; Rx Instructions: Test blood sugar four times a day or as directed by rosuvastatin 20 mg tablet 20 mg PO BEDTIME Qty: 90 3RF Hold Instructions: Needs labs tamsulosin 0.4 mg capsule 0.4 mg PO BEDTIME Qty: 90 3RF (DME) Syringes: 1cc Insulin Syringes with [place] 0 .Route .MEDSUPPLY Qty: 100 3RF Dose Instruction: As directed Rx Instructions: Use 1 syringe with 30x12.7 mm needle to inject insulin four times daily. Novolin 70/30 U-100 Insulin 100 unit/mL (70-30) suspension 40 unit SUBCUT .BIDAC Qty: 30 5RF aspirin 81 mg tablet,delayed release (DR/EC) 2 tab PO DAILY Bacid 1 billion cell- 250 mg Tablet 1 ea PO BID Qty: 120 0RF Referrals: Pb Montero MD [Primary Care Provider] - Visit Report Forms: Patient Portal/API
[2022-10-10 21:53] LABS: Influenza A - CEPHEID Flu A NEGATIVE (NEGATIVE); Influenza B - CEPHEID Flu B NEGATIVE (NEGATIVE); Respiratory Syncytial Virus Negative (Negative)
[2022-10-10 21:56] LABS: COVID-19 CEPHEID 4-PLEX PCR Negative (Negative)
[2022-10-10] MEDS: levoFLOXacin 250 MG TABLET 750 MG PO (22:06)
== END 2022-10-10 22:16 | disposition home or self-care (01) ==
PROVIDERS: Emergency Provider Emergency Medicine; PCP Student in an Organized Health Care Education/Training Program
DX: N39.0 Urinary tract infection, site not specified (principal); J81.1 Chronic pulmonary edema; Z79.01 Long term (current) use of anticoagulants; Z79.899 Other long term (current) drug therapy; Z20.822 Contact with and (suspected) exposure to COVID-19
CPT/HCPCS: 0241U; 36415; 71046; 80053; 81003; 81015; 82550; 83605; 83735; 83880; 84145; 84484; 85025; 87040; 87077; 87086; 87147; 87186; 93005; 99284

== ENCOUNTER → 2022-10-16 09:28 | Outpatient (CLI) | payer MEDICARE, OTHER, SELFPAY ==
[2021-12-13 21:38] VITALS: BMI 32.1
--- NOTE | 2022-10-16 09:30 | DI.RAD.S_ITS ---
PROCEDURE: XR LUMBAR SPINE 2-3V INDICATIONS: Low back pain TECHNIQUE: 3 views of the lumbar spine were acquired. COMPARISON: [facility], , XR LUMBAR SPINE 2-3V, 11/16/2020, 14:08. FINDINGS: Bones: 5 [id number] vertebrae are present. Mild levoscoliosis centered at the L4 level. No vertebral body compression fractures. No suspicious bony lesions. Mild multilevel disc height loss with endplate sclerosis and spurring. Mild facet joint arthropathy from the L3-L4 through the L5-S1 level. Postoperative changes within the right hip incompletely visualized. Soft tissues: Overlying bowel gas pattern is normal. No suspicious soft tissue calcifications. Vascular calcifications indicate atherosclerosis. IMPRESSION: 1. Mild multilevel lumbar spine spondylosis similar prior examination dated 11/16/2020. Dictated by: Puneet [facility] Interpreted: Patrick Mendoza MD on 10/16/2022 at 10:11 Transcribed by: YVETTE on 10/16/2022 at 10:12 Approved by: Patrick Mendoza M.D. on 10/16/2022 at 10:29
== END ==
PROVIDERS: PCP Student in an Organized Health Care Education/Training Program; Referring Provider Student in an Organized Health Care Education/Training Program; Visit Provider Student in an Organized Health Care Education/Training Program
DX: M47.816 Spondylosis without myelopathy or radiculopathy, lumbar region (principal); M47.817 Spondylosis without myelopathy or radiculopathy, lumbosacral region; M53.3 Sacrococcygeal disorders, not elsewhere classified; Z87.828 Personal history of other (healed) physical injury and trauma
CPT/HCPCS: 72100

== ENCOUNTER → 2022-11-01 16:03 | Outpatient (CLI) | payer MEDICARE, OTHER, SELFPAY ==
[2021-12-13 21:38] VITALS: BMI 32.1
== END ==
PROVIDERS: PCP Student in an Organized Health Care Education/Training Program; Visit Provider Nurse Practitioner Family
DX: N39.0 Urinary tract infection, site not specified (principal)
CPT/HCPCS: 87077; 87086; 87186

== ENCOUNTER 2022-12-03 17:38 | Emergency (ER) | payer MEDICARE, OTHER, SELFPAY ==
[2021-12-13 21:38] VITALS: BMI 32.1
[2022-12-03 17:56] VITALS: BP 184/78; PULSE 87; RESP 18; TEMP 36.9; O2SAT 98; BMI 33.9
[2022-12-03 18:18] LABS: Appearance Urine UA CLEAR; Bilirubin Urine UA NEGATIVE (NEGATIVE); Color Urine UA YELLOW; Glucose Urine UA TRACE g/dL (Negative); Ketones Urine UA NEGATIVE (NEGATIVE); Leukocyte Esterase Urine UA NEGATIVE (NEGATIVE); Nitrite Urine UA NEGATIVE (Negative); Occult Blood Urine UA TRACE-LYSED (Negative); Protein Urine UA NEGATIVE (Negative); Urobilinogen Urine UA 0.2 E.U./dL (0.2)
[2022-12-03 18:39] LABS: Bacteria Urine None Seen; Culture Indicated Urine Cult Not Indicated; RBC Urine 0-1/HPF (0-5/HPF); WBC Urine None Seen (0-5/HPF)
== END 2022-12-03 19:14 | disposition left against medical advice (07) ==
PROVIDERS: Emergency Medicine; Emergency Provider Emergency Medicine; PCP Student in an Organized Health Care Education/Training Program
DX: R30.0 Dysuria (principal)
CPT/HCPCS: 51798; 81001; 99282

== ENCOUNTER → 2023-03-13 07:29 | Outpatient (CLI) | payer MEDICARE, OTHER, SELFPAY ==
[2021-12-13 21:38] VITALS: BMI 32.1
[2023-03-13 08:39] LABS: Creatinine Urine Random 61.3 mg/dL
[2023-03-13 08:44] LABS: Microalbumin Urine Random 8.4 mg/dL (0-1.6)
[2023-03-13 08:55] LABS: Add Manual Diff / Slide Review NO; Basophils Absolute Auto 0 /uL (0-100); Basophils Percent Auto 0.8 % (0-2); Eosinophils Absolute Auto 100 /uL (0-450); Hematocrit 39.8 % (41-53); Hemoglobin 13.5 g/dL (13.5-17.5); Lymphocytes Absolute Auto 1800 /uL (1100-4500); Lymphocytes Percent Auto 32.8 % (25-40); Mean Corpuscular Hemoglobin 28.1 PG (26-34); Mean Corpuscular Volume 82.6 fL (80-100); Monocytes Absolute Auto 600 /uL (0-900); Neutrophils Absolute Auto 3100 /uL (1500-7000); Neutrophils Percent Auto 54.4 % (50-75); Platelet Count 190 X10^3/uL (150-400); Red Blood Cell Count 4.81 X10^6/uL (4.5-5.9); Red Cell Distribution Width 14.4 % (11.6-14.8); White Blood Cell Count 5.6 X10^3/uL (4.5-11.0)
[2023-03-13 09:11] LABS: Alanine Aminotransferase 25 IU/L (<50); Albumin 4.1 g/dL (3.5-5.0); Albumin Globulin Ratio 1.3 (1.0-2.8); Alkaline Phosphatase 126 U/L (38-126); Aspartate Aminotransferase 29 IU/L (17-59); BUN Creatinine Ratio 25.4 (6-22); Bilirubin Total 0.9 mg/dL (0.2-1.3); Blood Urea Nitrogen 18 mg/dL (9-20); Calcium 9.1 mg/dL (8.4-10.2); Carbon Dioxide 29 mmol/L (22-32); Chloride 105 mmol/L (98-107); Estimated Glomerular Filt Rate > 60 mL/min (>60); Globulin 3.2 g/dL (1.7-4.1); Glucose 201 mg/dL (80-110); HEMOLYSIS < 15 (0-50); Potassium 3.9 mmol/L (3.4-5.1); Sodium 141 mmol/L (137-145); Total Protein 7.3 g/dL (6.3-8.2)
[2023-03-13 10:40] LABS: Thyroid Stimulating Hormone 0.092 uIU/mL (0.47-4.68)
[2023-03-14 09:34] LABS: x Labcorp Estim. Avg Glu (eAG) 220 mg/dL (.); x Labcorp Hemoglobin A1c 9.3 % (4.8-5.6)
== END ==
PROVIDERS: PCP Student in an Organized Health Care Education/Training Program; Referring Provider Student in an Organized Health Care Education/Training Program; Visit Provider Student in an Organized Health Care Education/Training Program
DX: D64.9 Anemia, unspecified (principal); E03.9 Hypothyroidism, unspecified; E13.65 Other specified diabetes mellitus with hyperglycemia; E78.5 Hyperlipidemia, unspecified; I10 Essential (primary) hypertension; E11.69 Type 2 diabetes mellitus with other specified complication
CPT/HCPCS: 36415; 80053; 82043; 82570; 83036; 84443; 85025

== ENCOUNTER → 2023-10-06 06:51 | Outpatient (CLI) | payer MEDICARE, OTHER, SELFPAY ==
[2021-12-13 21:38] VITALS: BMI 32.1
[2023-10-06 08:16] LABS: Hemoglobin A1C% w Est Avg Glu 8.6 % (4.0-6.0)
== END ==
PROVIDERS: PCP Family Medicine; Referring Provider Family Medicine; Visit Provider Family Medicine
DX: E13.65 Other specified diabetes mellitus with hyperglycemia (principal); Z79.4 Long term (current) use of insulin
CPT/HCPCS: 36415; 83036

== ENCOUNTER 2023-12-04 13:36 | Emergency (ER) | payer MEDICARE, OTHER, SELFPAY ==
[2021-12-13 21:38] VITALS: BMI 32.1
[2023-12-04 13:40] VITALS: BP 247/109; PULSE 88; RESP 16; TEMP 36.6; O2SAT 99
--- NOTE | 2023-12-04 13:42 | ED_ITS ---
HPI - Fall <Reymundo Urena PA-C - Last Filed: 12/04/23 16:06> General Chief Complaint: Back Pain/Injury Stated Complaint: fall, back and hip pain, on blood thinners Time Seen by Provider: 12/04/23 13:42 History of Present Illness HPI Narrative: This is a 77-year-old male presents emergency department due to a mechanical ground level fall 5 days ago. He was walking backwards with his walker when he fell backwards landing on his buttocks and hips. He states that he primarily has pain in her his bilateral hips but no sacral or midline pain. He denies any saddle paresthesias, urine out or or bowel incontinence, you weakness, or any other concerning signs or symptoms. States he has a history of a pelvic fracture in the past which was eventually treated nonoperatively by his choice. Related Data Home Medications Medication Instructions Recorded Confirmed apixaban 5 mg tablet 5 mg PO BID 08/22/21 10/06/23 Previous Rx's Medication Instructions Recorded metoprolol tartrate 100 mg tablet See Rx Instructions .Route 10/16/20 .COMPLEX #180 tabs furosemide 20 mg tablet 20 mg PO QDAY #90 tabs 10/20/20 losartan 25 mg tablet 25 mg PO DAILY #90 tabs 10/20/20 Liners, suspension sleeves, and #1 ea 09/11/21 socks rosuvastatin 20 mg tablet 20 mg PO BEDTIME #90 tabs 10/12/21 L.acidophilus-L.bulgar-B.bifid-S.thermoph 1 ea PO BID #120 tabs 11/05/21 1 billion cell-250 mg tablet (Bacid) Syringes: 1cc Insulin Syringes #100 ea 11/19/22 with Pinch tamsulosin 0.4 mg capsule 0.4 mg PO BEDTIME #90 caps 01/14/23 levothyroxine 150 mcg tablet 150 mcg PO DAILY #90 tabs 03/17/23 insulin human U-100 NPH-regulr See Rx Instructions .Route 04/30/23 70-30 mix 100 unit/mL subcutaneous .COMPLEX #30 mL susp (Novolin 70/30 U-100 Insulin) blood sugar diagnostic (OneTouch #250 ea 10/24/23 Ultra Test strips) Glucose: Test Strips #250 ea 11/12/23 cyclobenzaprine 10 mg tablet 10 mg PO TID PRN muscle spasm #30 01/18/24 tabs Allergies Allergy/AdvReac Type Severity Reaction Status Date / Time cephalexin Allergy Severe Blister Verified 12/04/23 13:43 Cephalosporins Allergy Blister Verified 12/04/23 13:43 adhesive tape [ADHESIVE TAPE] AdvReac Mild PATIENT Verified 12/04/23 13:43 STATES IT PEELS HIS SKIN OFF lisinopril [LISINOPRIL] AdvReac Mild COUGH Verified 12/04/23 13:43 prochlorperazine AdvReac Unknown Verified 12/04/23 13:43 [PROCHLORPERAZINE] shellfish derived AdvReac Unknown Verified 12/04/23 13:43 [SHELLFISH DERIVED] Review of Systems <Reymundo Urena PA-C - Last Filed: 12/04/23 16:06> Review of Systems Narrative: GENERAL: Denies chills, fatigue, malaise, fever, sweats. HEENT: Denies sinus pain, ear pain, sore throat, difficulty swallowing, dizziness. RESPIRATORY: Denies dyspnea, cough, wheezing, hemoptysis, sputum. CARDIOVASCULAR: Denies chest pain, palpitations, orthopnea, edema, GASTROINTESTINAL: Denies nausea, vomiting, abdominal pain, diarrhea, constipation, melena. : Denies dysuria, frequency, incontinence, hematuria, urinary retention. MUSCULOSKELETAL: Reports bilateral hip pain denies weakness, joint pain, or bony pain SKIN: Denies rash, skin lesions, or other NEUROLOGIC: Denies weakness, headache, numbness, change in speech, confusion, seizures, incoordination. PSYCHIATRIC: No concerning psychosocial issues. 12 point review of systems is negative except for those stated above Patient History <Reymundo Urena PA-C - Last Filed: 12/04/23 16:06> Medical History (Updated 12/04/23 @ 16:05 by Reymundo Urena PA-C) Sacral back pain Diabetes, type 1.5, uncontrolled, managed as type 2 Myocardial infarct (10/17/06) Hx of drug abuse Measles (Unknown) GERD (gastroesophageal reflux disease) (Unknown) Hyperlipemia (Unknown) Obstructive sleep apnea (Unknown) Atrial fibrillation (Unknown) Hypertension (Unknown) Hepatitis C (Unknown) Peripheral vascular disease (Unknown) Carotid artery disease (Unknown) Hypothyroidism (Unknown) Erectile dysfunction (Unknown) Coronary artery disease involving coronary bypass graft of [place] heart without angina pectoris (09/11/15) Surgical History History of penile implant History of open reduction and internal fixation (ORIF) procedure (09/2010) Hx of coronary artery bypass surgery (10/2006) Hx of cataract surgery (~2004) S/P bilateral below knee amputation (Unknown) Family History Father Age: 88 Heart disease ETOH abuse Mother Age: 96 Heart disease Alzheimer's dementia without behavioral disturbance, Alzheimer's disease of unspecified onset Social History household members: spouse Smoking Status: Former smoker alcohol intake: never substance use type: does not use Smoking Status: Former smoker alcohol intake frequency: holidays/special occasions only Substance Use Type: does not use Exam <Reymundo Urena PA-C - Last Filed: 12/04/23 16:06> Narrative Exam Narrative: GENERAL: Well-developed patient, in mild distress. HEAD: Atraumatic. Normocephalic. EYES: Pupils equal round and reactive. Extraocular motions intact. No scleral icterus. No injection or drainage. ENT: Nose without bleeding, purulent drainage. Throat without erythema, tonsillar hypertrophy or exudate. Airway patent. NECK: Trachea midline. Non tender EXTREMITIES: No edema or joint tenderness. NEURO: AOx3. SKIN: No rash or erythema of visible areas Initial Vital Signs Initial Vital Signs: Vital Signs Temperature 98 F 12/04/23 13:40 Pulse Rate 88 12/04/23 13:40 Respiratory Rate 16 12/04/23 13:40 Blood Pressure 247/109 H 12/04/23 13:40 Pulse Oximetry 99 12/04/23 13:40 Oxygen Delivery Method Room Air 12/04/23 13:40 <Malathi Villatoro MD - Last Filed: 12/04/23 16:17> Initial Vital Signs Initial Vital Signs: Vital Signs Temperature 98 F 12/04/23 13:40 Pulse Rate 88 12/04/23 13:40 Respiratory Rate 16 12/04/23 13:40 Blood Pressure 247/109 H 12/04/23 13:40 Pulse Oximetry 99 12/04/23 13:40 Oxygen Delivery Method Room Air 12/04/23 13:40 Course <Reymundo Urena PA-C - Last Filed: 12/04/23 16:06> Orders Ordered: ED Orders 12/04/23 13:43 XR pelvis 1-2V Stat 12/04/23 15:20 XR lumbar spine 2-3V Stat Discontinued Medications Ketorolac Tromethamine (Ketorolac 30 Mg/Ml Vial) 15 mg IM NOW ONE Stop: 12/04/23 16:04 Last Admin: 12/04/23 16:10 Dose: 15 mg Documented By: AMV Vital Signs Vital signs: Vital Signs - 8 hr 12/04/23 13:40 12/04/23 15:52 Temperature 98 F Pulse Rate 88 69 Respiratory Rate 16 16 Blood Pressure 247/109 H 167/72 H Pulse Oximetry 99 99 Oxygen Delivery Method Room Air Room Air <Malathi Villatoro MD - Last Filed: 12/04/23 16:17> Orders Ordered: ED Orders 12/04/23 13:43 XR pelvis 1-2V Stat 12/04/23 15:20 XR lumbar spine 2-3V Stat Discontinued Medications Ketorolac Tromethamine (Ketorolac 30 Mg/Ml Vial) 15 mg IM NOW ONE Stop: 12/04/23 16:04 Last Admin: 12/04/23 16:10 Dose: 15 mg Documented By: AMV Vital Signs Vital signs: Vital Signs - 8 hr 12/04/23 13:40 12/04/23 15:52 Temperature 98 F Pulse Rate 88 69 Respiratory Rate 16 16 Blood Pressure 247/109 H 167/72 H Pulse Oximetry 99 99 Oxygen Delivery Method Room Air Room Air MDM - Fall <Reymundo Urena PA-C - Last Filed: 12/04/23 16:06> Imaging Data Extremity x-ray #1: Radiologist's Impression: [address] [address] XRay Report Signed Patient: Tulio Yi MR#: [id number] : 1945 Acct:[id number] Age/Sex: 77 / M Date of Service: 12/04/23 Loc: ED Accession Number: [id number] Procedure: XR pelvis 1-2V Ordering Provider: Reymundo Urena P.A-C PROCEDURE: XR PELVIS 1-2V INDICATIONS: fall on friday TECHNIQUE: 2 view(s) of the pelvis acquired. COMPARISON: [facility], CR, XR PELVIS 1-2V, 06/15/2018, 16:18. FINDINGS: Bones: No acute fracture or dislocation. Similar appearance of left-sided obturator ring fracture with displacement and pubic diastasis. Partially visualized right proximal femoral dynamic screw and fixation. Degenerative changes of the lower lumbar spine. No suspicious bony lesions. Soft tissues: Visualized bowel gas pattern is normal. No suspicious soft tissue calcifications. Penile implant. Surgical clips in the medial thighs bilaterally. Vascular calcifications. IMPRESSION: 1. No acute bony abnormality. If there is high clinical suspicion for a radiographically occult fracture, consider cross-sectional imaging for further evaluation. 2. Similar appearance of left-sided obturator ring fracture with displacement and pubic diastasis. Dictated by: Bk Pérez M.D. on 12/04/2023 at 14:57 Approved by: Bk Pérez M.D. on 12/04/2023 at 14:59 Lumbar XR : Radiologist's Impression: Close Lumbar Spine X-Ray (Signed) Andrea Rush - 12/04/23 Pelvis X-Ray (Signed) Bk Pérez - 12/04/23 Launch?[place] [address] XRay Report Signed Patient: Tulio Yi MR#: [id number] : 1945 Acct:[id number] Age/Sex: 77 / M Date of Service: 12/04/23 Loc: ED Accession Number: [id number] Procedure: XR lumbar spine 2-3V Ordering Provider: Reymundo Urena P.A-C PROCEDURE: XR LUMBAR SPINE 2-3V INDICATIONS: Lower back pain s/p fall TECHNIQUE: 3 views of the lumbar spine were acquired. COMPARISON: [facility], CR, XR LUMBAR SPINE 2-3V, 10/16/2022, 9:29. FINDINGS: Bones: 5 [id number] vertebrae are present. Multilevel disc space narrowing and endplate osteophyte formation as well as facet hypertrophy. No vertebral body compression fractures. No suspicious bony lesions. Soft tissues: Overlying bowel gas pattern is normal. No suspicious soft tissue calcifications. IMPRESSION: Multilevel degenerative disc and facet disease. No acute fracture. No osseous lesion. If symptoms and/or clinical suspicion for pathology persist, further assessment with repeat, or advanced imaging (e.g., CT, MRI, or bone scan) may be helpful for further assessment. Dictated by: Andrea Rush M.D. on 12/04/2023 at 15:38 Approved by: Andrea Rush M.D. on 12/04/2023 at 15:42 MDM Narrative Medical decision making narrative: ED course: This is a 77-year-old male presents emergency department due to a mechanical ground level fall where he landed on his buttocks. He had not lose conscious. He is complaining of bilateral hip pain. These x-rays were negative for any acute fractures although did note the chronic fractures to his pelvis he has had in the past. No displacement. Patient also reported some lower back pain and strongly requested an x-ray. X-ray ordered which was negative for any acute fractures. No concerning findings such as saddle paresthesias, urinary or bowel incontinence. Suspect muscular in nature. Patient will be given Toradol as well as muscle relaxants. CC: Hip pain Complicating co-morbidities: Chronic lower back pain Data collected from: Previous notes Medical records reviewed: Patient was last seen a year and a half ago due to a UTI. History of coronary artery disease, prior IV drug abuse, diabetes, hyperlipidemia, AFib on anticoagulation. History of hypothyroidism, sacral back pain. History of bilateral fyasp-qiq-[id number] amputation. Differential considered, but not limited to: Fracture, spinal cord injury Exam documented above, pertinent findings include: No significant tenderness to palpation Lab Test results independently reviewed as above. Pertinent findings: None obtained Imaging studies independently reviewed: As above, no acute fractures Scores Used: None MIPS Elements: None Consultations: None Treatments: Toradol IM here in emergency department. Re-evaluations: None Discussion: Discussed plan with the patient was comfortable with the plan Diagnosis: Hip pain Disposition: see below, along with detailed discharge instructions that have been reviewed with patient as well as indications for ED re-evaluation and additional outpatient follow up Discharge Plan Departure Patient Disposition: Home Clinical Impression: Acute hip pain, Back pain Instructions: DI for Back Strain or Sprain Activity Restrictions/Additional Instructions: Thank you for coming to the [facility] Emergency Department today. As we discussed your pelvis and lumbar spine x-ray showed no acute fractures. I suspect this is muscular in nature. Toradol give me today should help. Please take the muscle relaxants as prescribed. Please be careful as they may make you ?woozy?. Do not drive or operate heavy machinery with these. You may also take [id number] Tylenol as well as lidocaine or other icy hot patch chills. If your pain continues please follow up with the primary care provider. Please return to the emergency department if you develop any numbness between your legs, urinary or bowel incontinence, or any other concerning signs or symptoms. I hope you feel better soon. Please follow up with your primary care provider within a week if your symptoms continue. If you do not have a primary care provider please contact the [facility] Resource line at [phone]. They will ask some questions about your medical history and help you get set up with a provider in the community. Prescriptions: New cyclobenzaprine 10 mg tablet 10 mg PO TID PRN (Reason: muscle spasm) Qty: 30 0RF No Action metoprolol tartrate 100 mg tablet See Rx Instructions .ROUTE .COMPLEX Qty: 180 3RF Dose Instruction: take 1 tablet by mouth twice a day Rx Instructions: 100 BID furosemide 20 mg tablet 20 mg PO QDAY Qty: 90 3RF losartan 25 mg tablet 25 mg PO DAILY Qty: 90 3RF apixaban 5 mg tablet 5 mg PO BID (DME) Liners, suspension sleeves, and socks See Rx Instructions .Route .MEDSUPPLY Qty: 1 0RF Rx Instructions: As directed rosuvastatin 20 mg tablet 20 mg PO BEDTIME Qty: 90 3RF Hold Instructions: Needs labs (DME) Syringes: 1cc Insulin Syringes with Pinch 0 .Route .MEDSUPPLY Qty: 100 3RF Dose Instruction: As directed Rx Instructions: Use 1 syringe with 30x12.7 mm needle to inject insulin four times daily. tamsulosin 0.4 mg capsule 0.4 mg PO BEDTIME Qty: 90 2RF Novolin 70/30 U-100 Insulin 100 unit/mL (70-30) suspension See Rx Instructions .ROUTE .COMPLEX Qty: 30 5RF Dose Instruction: ADMINISTER 40 UNITS UNDER THE SKIN TWICE DAILY BEFORE MEALS Rx Instructions: ADMINISTER 40 UNITS UNDER THE SKIN TWICE DAILY BEFORE MEALS (DME) OneTouch Ultra Test Strip See Rx Instructions .Route Qty: 250 5RF Rx Instructions: use one strip to test blood glucose four times daily (DME) Glucose: Test Strips See Rx Instructions .Route .MEDSUPPLY Qty: 250 6RF Dose Instruction: QID; Rx Instructions: Test blood sugar four times a day for type 2 diabetes levothyroxine 150 mcg tablet 150 mcg PO DAILY Qty: 90 3RF Bacid 1 billion cell- 250 mg Tablet 1 ea PO BID Qty: 120 0RF Referrals: Sobia Draper DO [Primary Care Provider] - Stand Alone Forms: Patient Portal/API ED Sign-out <Malathi Villatoro MD - Last Filed: 12/04/23 16:17> Cosign ED Attending Cosignature Attestation: I did not see this patient. I was available all times for consultation.
--- NOTE | 2023-12-04 15:20 | DI.RAD.S_ITS ---
PROCEDURE: XR LUMBAR SPINE 2-3V INDICATIONS: Lower back pain s/p fall TECHNIQUE: 3 views of the lumbar spine were acquired. COMPARISON: [facility], CR, XR LUMBAR SPINE 2-3V, 10/16/2022, 9:29. FINDINGS: Bones: 5 ngo-xtu-[id number] vertebrae are present. Multilevel disc space narrowing and endplate osteophyte formation as well as facet hypertrophy. No vertebral body compression fractures. No suspicious bony lesions. Soft tissues: Overlying bowel gas pattern is normal. No suspicious soft tissue calcifications. IMPRESSION: Multilevel degenerative disc and facet disease. No acute fracture. No osseous lesion. If symptoms and/or clinical suspicion for pathology persist, further assessment with repeat, or advanced imaging (e.g., CT, MRI, or bone scan) may be helpful for further assessment. Dictated by: Andrea Rush M.D. on 12/04/2023 at 15:38 Approved by: Andrea Rush M.D. on 12/04/2023 at 15:42
[2023-12-04 15:52] VITALS: BP 167/72; PULSE 69; RESP 16; O2SAT 99
[2023-12-04] MEDS: KETOROLAC 30 MG/ML VIAL 15 MG IM (16:10)
== END 2023-12-04 16:27 | disposition home or self-care (01) ==
PROVIDERS: Emergency Provider Physician Assistant Medical; PCP Family Medicine
DX: M25.552 Pain in left hip (principal); M25.551 Pain in right hip; M54.50 Low back pain, unspecified; W18.30XA Fall on same level, unspecified, initial encounter; Z79.899 Other long term (current) drug therapy
CPT/HCPCS: 72100; 72170; 96372; 99283; J1885

== ENCOUNTER 2024-01-06 18:12 | Emergency (ER) | payer MEDICARE, OTHER, SELFPAY ==
[2021-12-13 21:38] VITALS: BMI 32.1
[2024-01-06] VITALS (7 sets, daily range): BP systolic 116–164; BP diastolic 56–75; PULSE 59–84; RESP 16–18; TEMP 36.6; O2SAT 92–97; BMI 34.1
--- NOTE | 2024-01-06 21:32 | ED_ITS ---
HPI - Skin/Abscess/Foreign Bdy General Chief complaint: Skin/Abscess/Foreign Body Stated complaint: abcess on rt arm Time Seen by Provider: 01/06/24 21:24 History of Present Illness HPI narrative: Gentleman with type 1 diabetes, double amputee, anticoagulant therapy and heart disease comes in today with an abscess in the left antecubital fossa by his report. Injects oxycodone 20-40 mg daily and has done so for a long time. He has chronic pain from an injury. He does not smoke cigarettes. He has had some nausea but no fever. No vomiting. No abdominal pain or chest pain. Related Data Home Medications Medication Instructions Recorded Confirmed apixaban 5 mg tablet 5 mg PO BID 08/22/21 12/10/23 Previous Rx's Medication Instructions Recorded metoprolol tartrate 100 mg tablet See Rx Instructions .Route 10/16/20 .COMPLEX #180 tabs losartan 25 mg tablet 25 mg PO DAILY #90 tabs 10/20/20 Liners, suspension sleeves, and #1 ea 09/11/21 socks L.acidophilus-L.bulgar-B.bifid-S.thermoph 1 ea PO BID #120 tabs 11/05/21 1 billion cell-250 mg tablet (Bacid) Syringes: 1cc Insulin Syringes #100 ea 11/19/22 with [place] tamsulosin 0.4 mg capsule 0.4 mg PO BEDTIME #90 caps 01/14/23 blood sugar diagnostic (OneTouch #250 ea 10/24/23 Ultra Test strips) Glucose: Test Strips #250 ea 11/12/23 cyclobenzaprine 10 mg tablet 10 mg PO TID PRN muscle spasm #30 12/04/23 tabs blood sugar diagnostic (OneTouch #100 ea 12/05/23 Ultra Test strips) furosemide 20 mg tablet 20 mg PO QDAY #90 tabs 12/22/23 insulin human U-100 NPH-regulr See Rx Instructions .Route 12/22/23 70-30 mix 100 unit/mL subcutaneous .COMPLEX #30 mL susp (Novolin 70/30 U-100 Insulin) levothyroxine 175 mcg tablet 175 mcg PO DAILY #90 tabs 12/22/23 rosuvastatin 20 mg tablet 20 mg PO BEDTIME #90 tabs 12/22/23 doxycycline hyclate 100 mg capsule 100 mg PO BID #20 caps 01/06/24 Allergies Allergy/AdvReac Type Severity Reaction Status Date / Time cephalexin Allergy Severe Blister Verified 12/10/23 10:06 Cephalosporins Allergy Blister Verified 12/10/23 10:06 adhesive tape [ADHESIVE TAPE] AdvReac Mild PATIENT Verified 12/10/23 10:06 STATES IT PEELS HIS SKIN OFF lisinopril [LISINOPRIL] AdvReac Mild COUGH Verified 12/10/23 10:06 prochlorperazine AdvReac Unknown Verified 12/10/23 10:06 [PROCHLORPERAZINE] shellfish derived AdvReac Unknown Verified 12/10/23 10:06 [SHELLFISH DERIVED] Patient History Medical History (Updated 01/06/24 @ 21:39 by Nasir Redmond MD) Sacral back pain Diabetes, type 1.5, uncontrolled, managed as type 2 Myocardial infarct (10/17/06) Hx of drug abuse Measles (Unknown) GERD (gastroesophageal reflux disease) (Unknown) Hyperlipemia (Unknown) Obstructive sleep apnea (Unknown) Atrial fibrillation (Unknown) Hypertension (Unknown) Hepatitis C (Unknown) Peripheral vascular disease (Unknown) Carotid artery disease (Unknown) Hypothyroidism (Unknown) Erectile dysfunction (Unknown) Coronary artery disease involving coronary bypass graft of [place] heart without angina pectoris (09/11/15) Surgical History History of penile implant History of open reduction and internal fixation (ORIF) procedure (09/2010) Hx of coronary artery bypass surgery (10/2006) Hx of cataract surgery (~2004) S/P bilateral below knee amputation (Unknown) Family History Father Age: 88 Heart disease ETOH abuse Mother Age: 96 Heart disease Alzheimer's dementia without behavioral disturbance, Alzheimer's disease of unspecified onset Social History household members: spouse Smoking Status: Former smoker alcohol intake: never substance use type: does not use Smoking Status: Former smoker alcohol intake frequency: holidays/special occasions only Substance Use Type: does not use Exam Narrative Exam Narrative: GENERAL: Alert, cooperative and in no distress. HEAD: Atraumatic. Normocephalic. EYES: Sclera are clear without icterus. ENT: No rhinorrhea. NECK: Supple. Full range of motion. CARDIOVASCULAR: Normal rate and rhythm without murmur gallop or rub. RESPIRATORY: Clear to auscultation. Breath sounds equal bilaterally. No wheezes, rales, or rhonchi. GASTROINTESTINAL: Abdomen soft, non-tender, nondistended. EXTREMITIES: No edema, full range of motion. No obvious trauma. NEURO: Nonfocal examination, normal speech, normal gait. SKIN: Induration and erythema to the antecubital fossa on the left. No fluctuance. No suspicion of fluid-filled abscess. PSYCH: Normally oriented. Normal range of affect. Appropriate behavior Initial Vital Signs Initial Vital Signs: Vital Signs Temperature 97.8 F 01/06/24 18:35 Pulse Rate 83 01/06/24 18:35 Respiratory Rate 16 01/06/24 18:35 Blood Pressure 164/75 H 01/06/24 18:35 Pulse Oximetry 97 01/06/24 18:35 Oxygen Delivery Method Room Air 01/06/24 18:35 Course Vital Signs Vital signs: Vital Signs - 8 hr 01/06/24 18:35 01/06/24 19:41 01/06/24 19:42 Temperature 97.8 F Pulse Rate 83 Respiratory Rate 16 Blood Pressure 164/75 H 116/56 L Pulse Oximetry 97 92 Oxygen Delivery Method Room Air 01/06/24 19:42 01/06/24 20:00 01/06/24 20:01 Temperature Pulse Rate 84 70 Respiratory Rate Blood Pressure 138/65 Pulse Oximetry 96 94 Oxygen Delivery Method 01/06/24 20:01 01/06/24 20:30 01/06/24 20:30 Temperature Pulse Rate 74 59 L Respiratory Rate Blood Pressure 143/67 H Pulse Oximetry 94 94 Oxygen Delivery Method Room Air 01/06/24 21:00 01/06/24 21:00 Temperature Pulse Rate 62 Respiratory Rate 18 Blood Pressure 152/74 H Pulse Oximetry 94 Oxygen Delivery Method MDM - Skin/Abscess/Foreign Bdy MDM Narrative Medical decision making narrative: No abscess identified on physical examination. Oral antibiotics and hot packs are recommended. I also recommended follow-up in addiction Clinic for buprenorphine therapy. Discharge Plan Departure Patient Disposition: Home Clinical Impression: Cellulitis Instructions: DI for Cellulitis -- Adult Activity Restrictions/Additional Instructions: Thank you for trusting us with your care. No evidence of abscess at this time. It is just cellulitis which is a skin infection that has not yet developed into an abscess. An abscess may still develop but for now the only treatment is oral antibiotics which I have prescribed to the local pharmacy. You should follow-up right away for high fever, repeated vomiting or other severe symptoms. You should expect to notice a difference by Friday and should continue to improve if not much better by next Friday you should follow up at the clinic. I strongly encourage you to follow-up at the addiction Clinic called: [facility] it is in [place]. The phone number is [phone]. This clinic can prescribe buprenorphine (Suboxone). I have treated over 1000 patient's with this over many years. It is very unusual that is someone does not dramatically prefer buprenorphine over short-acting opioids such as oxycodone. Prescriptions: New doxycycline hyclate 100 mg capsule 100 mg PO BID Qty: 20 0RF No Action metoprolol tartrate 100 mg tablet See Rx Instructions .ROUTE .COMPLEX Qty: 180 3RF Dose Instruction: take 1 tablet by mouth twice a day Rx Instructions: 100 BID losartan 25 mg tablet 25 mg PO DAILY Qty: 90 3RF apixaban 5 mg tablet 5 mg PO BID (DME) Liners, suspension sleeves, and socks See Rx Instructions .Route .MEDSUPPLY Qty: 1 0RF Rx Instructions: As directed (DME) Syringes: 1cc Insulin Syringes with [place] 0 .Route .MEDSUPPLY Qty: 100 3RF Dose Instruction: As directed Rx Instructions: Use 1 syringe with 30x12.7 mm needle to inject insulin four times daily. tamsulosin 0.4 mg capsule 0.4 mg PO BEDTIME Qty: 90 2RF (DME) OneTouch Ultra Test Strip See Rx Instructions .Route Qty: 250 5RF Rx Instructions: use one strip to test blood glucose four times daily (DME) Glucose: Test Strips See Rx Instructions .Route .MEDSUPPLY Qty: 250 6RF Dose Instruction: QID; Rx Instructions: Test blood sugar four times a day for type 2 diabetes (DME) OneTouch Ultra Test Strip See Rx Instructions .Route Qty: 100 11RF Rx Instructions: test blood sugar 4 times daily furosemide 20 mg tablet 20 mg PO QDAY Qty: 90 3RF Novolin 70/30 U-100 Insulin 100 unit/mL (70-30) suspension See Rx Instructions .ROUTE .COMPLEX Qty: 30 5RF Dose Instruction: ADMINISTER 40 UNITS UNDER THE SKIN TWICE DAILY BEFORE MEALS Rx Instructions: ADMINISTER 40 UNITS UNDER THE SKIN TWICE DAILY BEFORE MEALS rosuvastatin 20 mg tablet 20 mg PO BEDTIME Qty: 90 3RF Hold Instructions: Needs labs levothyroxine 175 mcg tablet 175 mcg PO DAILY Qty: 90 3RF Bacid 1 billion cell- 250 mg Tablet 1 ea PO BID Qty: 120 0RF cyclobenzaprine 10 mg tablet 10 mg PO TID PRN (Reason: muscle spasm) Qty: 30 0RF Referrals: Sobia Draper DO [Primary Care Provider] - Stand Alone Forms: Patient Portal/API
--- NOTE | 2024-01-06 21:42 | PC.NURSE ---
Pt states doxycycline was used recently and messed my stomach up. MD aware and changing order.
[2024-01-06] MEDS: TRIMETH/SULFA 160/800 (DS) TABLET 1 TAB PO (21:48)
== END 2024-01-06 21:57 | disposition home or self-care (01) ==
PROVIDERS: Emergency Provider Family Medicine Addiction Medicine; PCP Family Medicine
DX: L03.114 Cellulitis of left upper limb (principal)
CPT/HCPCS: 99283

== ENCOUNTER → 2024-02-09 07:41 | Outpatient (CLI) | payer MEDICARE, OTHER, SELFPAY ==
[2021-12-13 21:38] VITALS: BMI 32.1
[2024-02-09 08:25] LABS: Alanine Aminotransferase 18 IU/L (<50); Albumin 3.9 g/dL (3.5-5.0); Albumin Globulin Ratio 1.3 (1.0-2.8); Alkaline Phosphatase 125 U/L (38-126); Aspartate Aminotransferase 27 IU/L (17-59); BUN Creatinine Ratio 41.2 (6-22); Bilirubin Total 0.8 mg/dL (0.2-1.3); Blood Urea Nitrogen 28 mg/dL (9-20); Calcium 9.4 mg/dL (8.4-10.2); Carbon Dioxide 27 mmol/L (22-32); Chloride 108 mmol/L (98-107); Cholesterol 97 mg/dL (140-199); Estimated Glomerular Filt Rate > 60 mL/min (>60); Globulin 3.1 g/dL (1.7-4.1); Glucose 119 mg/dL (80-110); HDL Cholesterol 54 mg/dL (40-60); HEMOLYSIS 19 (0-50); LDL Cholesterol Calculated 29 mg/dL (<100); Potassium 4.5 mmol/L (3.4-5.1); Sodium 139 mmol/L (137-145); Triglycerides 68 mg/dL (35-150)
[2024-02-09 08:51] LABS: TSH w/ Reflex to FT4 0.25 uIU/mL (0.47-4.68)
[2024-02-09 09:19] LABS: Hemoglobin A1C% w Est Avg Glu 8.5 % (4.0-6.0)
== END ==
PROVIDERS: PCP Family Medicine; Referring Provider Family Medicine; Visit Provider Family Medicine
DX: E13.65 Other specified diabetes mellitus with hyperglycemia (principal); I48.91 Unspecified atrial fibrillation; Z79.4 Long term (current) use of insulin; I10 Essential (primary) hypertension; E03.9 Hypothyroidism, unspecified
CPT/HCPCS: 36415; 80053; 80061; 83036; 84439; 84443

== ENCOUNTER 2024-03-11 07:45 | Inpatient (IN) | payer MEDICARE, OTHER, SELFPAY ==
[2021-12-13 21:38] VITALS: BMI 32.1
[2024-03-11] VITALS (10 sets, daily range): BP systolic 117–155; BP diastolic 58–68; PULSE 70–94; RESP 16–20; TEMP 36.9; O2SAT 93–97; BMI 30.2
--- NOTE | 2024-03-11 08:07 | ED.SKABFB ---
HPI - Skin/Abscess/Foreign Bdy General Chief complaint: Skin/Abscess/Foreign Body Stated complaint: Left hand pain Time Seen by Provider: 03/11/24 07:52 Source: patient Mode of arrival: Family Vehicle Limitations: no limitations History of Present Illness HPI narrative: Patient is a 78-year-old male. Has a history of insulin-dependent diabetes. Is anticoagulated on apixaban. Is a opioid addict and injects. Is here for evaluation of redness and pain and swelling to the back of his left hand. It started over the past couple days and has been worsening. He did inject himself in the back of his left hand recently in multiple different places. Denies fevers. He also states that he has gastroparesis. Has been vomiting quite a bit recently. Related Data Home Medications Medication Instructions Recorded Confirmed apixaban 5 mg tablet 5 mg PO BID 08/22/21 02/09/24 Previous Rx's Medication Instructions Recorded metoprolol tartrate 100 mg tablet See Rx Instructions .Route 10/16/20 .COMPLEX #180 tabs losartan 25 mg tablet 25 mg PO DAILY #90 tabs 10/20/20 Liners, suspension sleeves, and #1 ea 09/11/21 socks L.acidophilus-L.bulgar-B.bifid-S.thermoph 1 ea PO BID #120 tabs 11/05/21 1 billion cell-250 mg tablet (Bacid) Syringes: 1cc Insulin Syringes #100 ea 11/19/22 with [place] blood sugar diagnostic (OneTouch #250 ea 10/24/23 Ultra Test strips) Glucose: Test Strips #250 ea 11/12/23 cyclobenzaprine 10 mg tablet 10 mg PO TID PRN muscle spasm #30 12/04/23 tabs blood sugar diagnostic (OneTouch #100 ea 12/05/23 Ultra Test strips) furosemide 20 mg tablet 20 mg PO QDAY #90 tabs 12/22/23 insulin human U-100 NPH-regulr See Rx Instructions .Route 12/22/23 70-30 mix 100 unit/mL subcutaneous .COMPLEX #30 mL susp (Novolin 70/30 U-100 Insulin) levothyroxine 175 mcg tablet 175 mcg PO DAILY #90 tabs 12/22/23 rosuvastatin 20 mg tablet 20 mg PO BEDTIME #90 tabs 12/22/23 sulfamethoxazole 800 1 tab PO BID #20 tabs 01/06/24 mg-trimethoprim 160 mg tablet (Bactrim DS) tamsulosin 0.4 mg capsule 0.4 mg PO ONCE PM #90 caps 01/19/24 naloxone 4 mg/actuation nasal 4 mg intranasal Q2M #2 ea 02/09/24 spray (Narcan) Allergies Allergy/AdvReac Type Severity Reaction Status Date / Time cephalexin Allergy Severe Blister Verified 02/09/24 12:41 Cephalosporins Allergy Blister Verified 02/09/24 12:41 adhesive tape [ADHESIVE TAPE] AdvReac Mild PATIENT Verified 02/09/24 12:41 STATES IT PEELS HIS SKIN OFF lisinopril [LISINOPRIL] AdvReac Mild COUGH Verified 02/09/24 12:41 prochlorperazine AdvReac Unknown Verified 02/09/24 12:41 [PROCHLORPERAZINE] shellfish derived AdvReac Unknown Verified 02/09/24 12:41 [SHELLFISH DERIVED] Review of Systems Review of Systems ROS Unobtainable: All systems reviewed & are unremarkable except as noted in HPI and below Patient History Medical History Opiate dependence Peripheral autonomic neuropathy due to diabetes mellitus Sacral back pain Diabetes, type 1.5, uncontrolled, managed as type 2 Myocardial infarct (10/17/06) Hx of drug abuse Measles (Unknown) GERD (gastroesophageal reflux disease) (Unknown) Hyperlipemia (Unknown) Obstructive sleep apnea (Unknown) Atrial fibrillation (Unknown) Hypertension (Unknown) Hepatitis C (Unknown) Peripheral vascular disease (Unknown) Carotid artery disease (Unknown) Hypothyroidism (Unknown) Erectile dysfunction (Unknown) Coronary artery disease involving coronary bypass graft of [place] heart without angina pectoris (09/11/15) Surgical History History of penile implant History of open reduction and internal fixation (ORIF) procedure (09/2010) Hx of coronary artery bypass surgery (10/2006) Hx of cataract surgery (~2004) S/P bilateral below knee amputation (Unknown) Family History Father Age: 88 Heart disease ETOH abuse Mother Age: 96 Heart disease Alzheimer's dementia without behavioral disturbance, Alzheimer's disease of unspecified onset Social History household members: spouse Smoking Status: Former smoker alcohol intake: never substance use type: does not use Smoking Status: Former smoker alcohol intake frequency: holidays/special occasions only Substance Use Type: does not use Exam Initial Vital Signs Initial Vital Signs: Vital Signs Pulse Rate 89 03/11/24 07:54 Pulse Oximetry 96 03/11/24 07:54 Cardio Pulses: radial pulses present on the left GI Inspection: normal to inspection and non-distended Palpation: soft, No firm, No guarding and No rigid Skin Other: Redness and swelling to the dorsum of the left hand specifically the base of the thumb index and ring finger. There is some streaking proximal to the left wrist. Extrem Other: Bilateral lower extremity amputations Course Orders Ordered: ED Orders 03/11/24 08:08 XR abdomen 1V Stat 03/11/24 10:03 Basic Metabolic Panel Stat Complete Blood Count AUTO DIFF Stat Lipase Stat 03/11/24 10:23 Blood Culture Stat Vancomycin HCl/Dextrose (Vancomycin) 2,000 mg in 400 mls @ 200 mls/hr IV NOW ONE Stop: 03/11/24 11:44 Last Admin: 03/11/24 10:27 Dose: 200 mls/hr Documented By: ESTHER Discontinued Medications Doxycycline Hyclate (Doxycycline Hyclate 100 Mg Tablet) 100 mg PO NOW ONE Stop: 03/11/24 08:09 Last Admin: 03/11/24 09:17 Dose: Not Given Documented By: ESTHER Vital Signs Vital signs: Vital Signs - 8 hr 03/11/24 07:54 03/11/24 07:59 03/11/24 08:00 Temperature 98.5 F Pulse Rate 89 94 H Respiratory Rate 16 19 Blood Pressure 117/58 L 124/63 Pulse Oximetry 96 96 Oxygen Delivery Method Room Air 03/11/24 08:00 03/11/24 08:30 03/11/24 08:31 Temperature Pulse Rate 82 83 85 Respiratory Rate Blood Pressure Pulse Oximetry 96 94 93 Oxygen Delivery Method Room Air 03/11/24 08:31 03/11/24 09:00 03/11/24 09:00 Temperature Pulse Rate 75 Respiratory Rate Blood Pressure 155/68 H 138/63 Pulse Oximetry 95 Oxygen Delivery Method 03/11/24 09:30 03/11/24 09:30 03/11/24 10:00 Temperature Pulse Rate 70 73 Respiratory Rate 20 Blood Pressure 143/66 H Pulse Oximetry 94 96 Oxygen Delivery Method Room Air 03/11/24 10:30 Temperature Pulse Rate 75 Respiratory Rate Blood Pressure Pulse Oximetry 95 Oxygen Delivery Method MDM - Skin/Abscess/Foreign Bdy Lab Data Attestation: I reviewed the patient's lab results. 03/11/24 10:03 03/11/24 10:03 Labs: Lab Results 03/11/24 Range/Units 10:03 WBC 9.3 (4.5-11.0) X10^3/uL RBC 4.40 L (4.5-5.9) X10^6/uL Hgb 12.4 L (13.5-17.5) g/dL Hct 36.7 L (41-53) % MCV 83.5 (80-100) fL MCH 28.1 (26-34) PG MCHC 33.7 (30-36) % RDW 14.7 (11.6-14.8) % Plt Count 167 (150-400) X10^3/uL Neut % (Auto) 71.9 (50-75) % Lymph % (Auto) 16.7 L (25-40) % [place] % (Auto) 9.6 (3-14) % Eos % (Auto) 0.9 L (2-4) % Baso % (Auto) 0.9 (0-2) % Neut # (Auto) 6700 (1067-1473) /uL Lymph # (Auto) 1600 (2892-5336) /uL [place] # (Auto) 900 (0-900) /uL Eos # (Auto) 100 (0-450) /uL Baso # (Auto) 100 (0-100) /uL Sodium 135 L (137-145) mmol/L Potassium 4.0 (3.4-5.1) mmol/L Chloride 104 (98-107) mmol/L Carbon Dioxide 28 (22-32) mmol/L BUN 21 H (9-20) mg/dL Creatinine 0.66 (0.66-1.25) mg/dL Estimated GFR > 60 (>60) mL/min BUN/Creatinine Ratio 31.8 H (6-22) Glucose 268 H (80-110) mg/dL Calcium 9.0 (8.4-10.2) mg/dL Lipase 10 L (23-300) U/L Imaging Data Abdominal x-ray: Radiologist's Impression: PROCEDURE: XR ABDOMEN 1V INDICATIONS: vomiting TECHNIQUE: Two views of the abdomen acquired. COMPARISON: None. FINDINGS: Surgical changes and devices: There is prior ORIF of right proximal femur . Penile implant is also seen. [place] stenotic me wires are noted. Bowel: Bowel gas pattern is nonobstructive. Large amount of fecal matter throughout the colon is seen. No gross pneumoperitoneum. Soft tissues: No suspicious abdominal calcifications. Visualized solid organ contours appear normal in size. Bones: No suspicious bony lesions. IMPRESSION: Suggestion of moderate constipation and fecal impaction. No gross free air MDM Narrative Medical decision making narrative: Patient was unable to tolerate oral antibiotics here in the emergency department. He states that he is becoming very nauseous for probably because of his gastroparesis. He was afebrile and does not have leukocytosis but definitely has an infection to his left hand. Bedside ultrasound shows no deep abscess. There is some streaking above the wrist. I suspect that unless he receives IV antibiotics he will not take his oral antibiotics and most likely infection would become worse. Discussed the case with Dr. Kelley who is the hospitalist on-call. We will admit for further evaluation and treatment. Discussed the need for admission with the patient. He expressed understanding and agreement as well. Discharge Plan Departure Patient Disposition: Admitted as Observation Clinical Impression: Cellulitis, Diabetes
[2024-03-11 10:17] LABS: Add Manual Diff / Slide Review NO; Basophils Absolute Auto 100 /uL (0-100); Basophils Percent Auto 0.9 % (0-2); Eosinophils Absolute Auto 100 /uL (0-450); Eosinophils Percent Auto 0.9 % (2-4); Hematocrit 36.7 % (41-53); Hemoglobin 12.4 g/dL (13.5-17.5); Lymphocytes Absolute Auto 1600 /uL (1100-4500); Lymphocytes Percent Auto 16.7 % (25-40); Mean Corpuscular HGB Conc 33.7 % (30-36); Mean Corpuscular Hemoglobin 28.1 PG (26-34); Mean Corpuscular Volume 83.5 fL (80-100); Monocytes Absolute Auto 900 /uL (0-900); Monocytes Percent Auto 9.6 % (3-14); Neutrophils Absolute Auto 6700 /uL (1500-7000); Neutrophils Percent Auto 71.9 % (50-75); Platelet Count 167 X10^3/uL (150-400); Red Cell Distribution Width 14.7 % (11.6-14.8); White Blood Cell Count 9.3 X10^3/uL (4.5-11.0)
[2024-03-11] MEDS: VANCOMYCIN 2,000 MG/400 ML PIGGYBACK 200 MG IV (10:27)
[2024-03-11 10:30] LABS: BUN Creatinine Ratio 31.8 (6-22); Blood Urea Nitrogen 21 mg/dL (9-20); Carbon Dioxide 28 mmol/L (22-32); Chloride 104 mmol/L (98-107); Estimated Glomerular Filt Rate > 60 mL/min (>60); Glucose 268 mg/dL (80-110); HEMOLYSIS < 15 (0-50); Lipase 10 U/L (23-300); Sodium 135 mmol/L (137-145)
--- NOTE | 2024-03-11 11:44 | PM.HP.1 ---
History of Present Illness History of Present Illness Date Patient Seen: 03/11/24 Time Patient Seen: 12:30 Chief complaint: Left hand pain Narrative: The patient is a 78-year-old male with a history of insulin-dependent diabetes as well as bilateral BKA. He is chronically anticoagulated. He presents with a left hand infection. This hand infection has been going on for several days and he was redness and swelling over the posterior aspect of his hand distal to the wrist. The patient does inject oxycodone in multiple veins in the back of his hand. He uses 3 to 6 times a week, proximally 20 mg of oxycodone per session. He has no history of MRSA. He denies fevers, or chills. He does have a sensitive stomach due to diabetic induced gastroparesis. He does have range of motion which is fairly normal at the wrist and all joints of the hand. Ultrasound in the ED was negative for evidence of a fluid collection. [facility], [facility] Medical History Opiate dependence Peripheral autonomic neuropathy due to diabetes mellitus Sacral back pain Diabetes, type 1.5, uncontrolled, managed as type 2 Myocardial infarct (10/17/06) Hx of drug abuse Measles (Unknown) GERD (gastroesophageal reflux disease) (Unknown) Hyperlipemia (Unknown) Obstructive sleep apnea (Unknown) Atrial fibrillation (Unknown) Hypertension (Unknown) Hepatitis C (Unknown) Peripheral vascular disease (Unknown) Carotid artery disease (Unknown) Hypothyroidism (Unknown) Erectile dysfunction (Unknown) Coronary artery disease involving coronary bypass graft of [place] heart without angina pectoris (09/11/15) Surgical History History of penile implant History of open reduction and internal fixation (ORIF) procedure (09/2010) Hx of coronary artery bypass surgery (10/2006) Hx of cataract surgery (~2004) S/P bilateral below knee amputation (Unknown) Family History Father Age: 88 Heart disease ETOH abuse Mother Age: 96 Heart disease Alzheimer's dementia without behavioral disturbance, Alzheimer's disease of unspecified onset Social History household members: spouse Smoking Status: Former smoker alcohol intake: current substance use type: does not use Meds Home Medications and Allergies Home Medications Medication Instructions Recorded Confirmed Type metoprolol tartrate 100 mg tablet See Rx Instructions .Route 10/16/20 03/11/24 Rx .COMPLEX #180 tabs losartan 25 mg tablet 25 mg PO DAILY #90 tabs 10/20/20 03/11/24 Rx apixaban 5 mg tablet 5 mg PO BID 08/22/21 03/11/24 History Liners, suspension sleeves, and #1 ea 09/11/21 03/11/24 Rx socks L.acidophilus-L.bulgar-B.bifid-S.thermoph 1 ea PO BID #120 tabs 11/05/21 03/11/24 Rx 1 billion cell-250 mg tablet (Bacid) Syringes: 1cc Insulin Syringes #100 ea 11/19/22 03/11/24 Rx with [place] blood sugar diagnostic (OneTouch #250 ea 10/24/23 03/11/24 Rx Ultra Test strips) Glucose: Test Strips #250 ea 11/12/23 03/11/24 Rx blood sugar diagnostic (OneTouch #100 ea 12/05/23 03/11/24 Rx Ultra Test strips) furosemide 20 mg tablet 20 mg PO QDAY #90 tabs 12/22/23 03/11/24 Rx insulin human U-100 NPH-regulr See Rx Instructions .Route 12/22/23 03/11/24 Rx 70-30 mix 100 unit/mL subcutaneous .COMPLEX #30 mL susp (Novolin 70/30 U-100 Insulin) levothyroxine 175 mcg tablet 175 mcg PO DAILY #90 tabs 12/22/23 03/11/24 Rx rosuvastatin 20 mg tablet 20 mg PO BEDTIME #90 tabs 12/22/23 03/11/24 Rx tamsulosin 0.4 mg capsule 0.4 mg PO ONCE PM #90 caps 01/19/24 03/11/24 Rx naloxone 4 mg/actuation nasal 4 mg intranasal Q2M #2 ea 02/09/24 03/11/24 Rx spray (Narcan) Allergies Allergy/AdvReac Type Severity Reaction Status Date / Time cephalexin Allergy Severe Blister Verified 02/09/24 12:41 Cephalosporins Allergy Blister Verified 02/09/24 12:41 adhesive tape [ADHESIVE TAPE] AdvReac Mild PATIENT Verified 02/09/24 12:41 STATES IT PEELS HIS SKIN OFF lisinopril [LISINOPRIL] AdvReac Mild COUGH Verified 02/09/24 12:41 prochlorperazine AdvReac Unknown Verified 02/09/24 12:41 [PROCHLORPERAZINE] shellfish derived AdvReac Unknown Verified 02/09/24 12:41 [SHELLFISH DERIVED] Review of Systems Review of Systems Narrative: All else reviewed and otherwise unremarkable except as noted in the history and physical. Exam Vital Signs (past 8 hours): - 03/11/24 07:54 03/11/24 07:59 03/11/24 08:00 Temperature 98.5 F Pulse Rate 89 94 H Respiratory Rate 16 19 Blood Pressure 117/58 L 124/63 Pulse Oximetry 96 96 Oxygen Delivery Method Room Air 03/11/24 08:00 03/11/24 08:30 03/11/24 08:31 Temperature Pulse Rate 82 83 85 Respiratory Rate Blood Pressure Pulse Oximetry 96 94 93 Oxygen Delivery Method Room Air 03/11/24 08:31 03/11/24 09:00 03/11/24 09:00 Temperature Pulse Rate 75 Respiratory Rate Blood Pressure 155/68 H 138/63 Pulse Oximetry 95 Oxygen Delivery Method 03/11/24 09:30 03/11/24 09:30 03/11/24 10:00 Temperature Pulse Rate 70 73 Respiratory Rate 20 Blood Pressure 143/66 H Pulse Oximetry 94 96 Oxygen Delivery Method Room Air 03/11/24 10:30 Temperature Pulse Rate 75 Respiratory Rate Blood Pressure Pulse Oximetry 95 Oxygen Delivery Method Oxygen Delivery Method Room Air Narrative Exam Narrative: NAD, alert and oriented, fluent speech, calm. Normocephalic skull, EOMI, anicteric sclera, symmetric pupils. Oropharynx unremarkable, no droop. Neck supple, midline trachea, no adenopathy. Lungs clear, normal rate and effort. Heart regular, no murmur gallop or rub. Abdomen is soft, non distended and non tender. Extremities: Bilateral BKA. Skin is free of rash or lesions. Joints are not swollen or deformed. Judgment appears to be normal. Left hand is swollen over the dorsal aspect, distal to the wrist. The wrist has a ring normal range of motion. There was no flexion once palpating the area that is swollen. The patient does not have any pain or swelling of his hand joints. Objective Labs 03/11/24 10:03 03/11/24 10:03 Labs: Laboratory Results - last 24 hr 03/11/24 10:03 WBC 9.3 RBC 4.40 L Hgb 12.4 L Hct 36.7 L MCV 83.5 MCH 28.1 MCHC 33.7 RDW 14.7 Plt Count 167 Neut % (Auto) 71.9 Lymph % (Auto) 16.7 L Jerome % (Auto) 9.6 Eos % (Auto) 0.9 L Baso % (Auto) 0.9 Neut # (Auto) 6700 Lymph # (Auto) 1600 Jerome # (Auto) 900 Eos # (Auto) 100 Baso # (Auto) 100 Sodium 135 L Potassium 4.0 Chloride 104 Carbon Dioxide 28 BUN 21 H Creatinine 0.66 Estimated GFR > 60 BUN/Creatinine Ratio 31.8 H Glucose 268 H Calcium 9.0 Lipase 10 L Assessment & Plan Assessment & Plan narrative: 1. Left hand soft tissue infection, present on admission and active. 2. Opiate dependence, present on admission and active. 3. Diabetes mellitus 2, insulin dependent, present on admission and active. 4. HTM, present on admission and active. 5. Chronic atrial fibrillation, present on admission and active. 6. Chronic anticoagulation, present on admission and active. Plan: -IV antibiotics, nares MRSA screen. -ultrasound left hand, rule out fluid collection or abscess. -continue chronic medications for diabetes, and atrial fibrillation. Full resuscitation Proxy is . Patient lives in [place]. He is admitted observation status, anticipating a 1 midnight necessity of stay. Time Spent With Patient Time with patient: 30 to 49 minutes with 50% spent counseling/coordinating care Quality MIPS - Admit I confirm the patient?s Advance Care Plan is present, Code status is documented, Surrogate decision maker is in patient?s record [If Yes, STOP here]: Yes MIPS - Meds 'Current medications' to include all prescriptions, [id number] products, herbals, cannabis/cannabidiol products, and vitamin/mineral/dietary (nutritional) supplements. I have utilized all available resources to obtain, update, or review the patient?s current medications. [If Yes, STOP here]: Yes
[2024-03-11] MEDS: OXYCODONE IR 5 MG TABLET PO ×2 (14:32→20:06)
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
[2024-03-11 16:45] LABS: MRSA (Nasal) PCR NOT DETECTED (Not Detect)
[2024-03-11] MEDS: INSULIN NPH/REG 70-30 100 UNIT/ML 10ML VIAL 40 UNIT SUBCUT (17:11)
[2024-03-11] MEDS: INSULIN LISPRO 100 UNIT/ML 3ML VIAL SUBCUT (17:13)
[2024-03-11 18:11] LABS: Hemoglobin A1C% w Est Avg Glu 8.4 % (4.0-6.0)
[2024-03-11] MEDS: LACTOBACILLUS ACIDOPHILUS TABLET 1 EACH PO (20:07)
[2024-03-11] MEDS: ACETAMINOPHEN 325 MG TABLET 650 MG PO (20:07)
[2024-03-11] MEDS: APIXABAN 5 MG TABLET PO (20:07)
[2024-03-11] MEDS: TAMSULOSIN 0.4 MG CAPSULE PO (20:07)
[2024-03-11] MEDS: ATORVASTATIN 20 MG TABLET 40 MG PO (20:08)
[2024-03-11] MEDS: METOPROLOL IR 50 MG TABLET 100 MG PO (20:11)
[2024-03-11] MEDS: VANCOMYCIN 1,500 MG/300 ML PIGGYBACK 200 MG IV (22:09)
[2024-03-12] MEDS: OXYCODONE IR 5 MG TABLET PO ×4 (02:25→20:12)
[2024-03-12 03:30] VITALS: BP 108/37; PULSE 66; RESP 18; TEMP 36.9; O2SAT 100
[2024-03-12 05:00] VITALS: BP 121/55; PULSE 73; O2SAT 98
[2024-03-12] MEDS: LEVOTHYROXINE 100 MCG, LEVOTHYROXINE 75 MCG 175 MCG PO (05:07)
[2024-03-12] MEDS: ACETAMINOPHEN 325 MG TABLET 650 MG PO ×2 (05:09→12:50)
--- NOTE | 2024-03-12 07:01 | PC.NURSE ---
Addendum entered by Hiwot Ang R.N. 03/12/24 07:27: Blood sugar recheck endorsed to oncoming nurse. Original Note: At 07:00, patient reported feeling weird, woozy, but stated it felt like anxiety. Blood sugar checked and result was 56. Apple juice, sandwich and yogurt given, patient eating now.
[2024-03-12 08:00] VITALS: BP 127/41; PULSE 83; RESP 16; TEMP 36.6; O2SAT 97
--- NOTE | 2024-03-12 08:28 | DI.US.S_ITS ---
PROCEDURE: US EXTREMITY NONVASC UPPER LT INDICATIONS: left hand infection r/o abscess TECHNIQUE: Real-time scanning was performed of the dorsum of the left hand , with image documentation. COMPARISON: None. FINDINGS: Dorsum of the left hand demonstrates a heterogeneous fluid collection with no discrete capsule measuring 2.7 x 1.2 x 1.9 cm. No significant internal vascularity. IMPRESSION: Dorsum of the left hand demonstrates a heterogeneous phlegmon measuring 2.7 x 1.2 x 1.9 cm. No discrete capsule. Dictated by: Bk Pérez M.D. on 03/12/2024 at 9:15 Approved by: Bk Pérez M.D. on 03/12/2024 at 9:19
[2024-03-12 09:17] VITALS: BP 127/41; PULSE 83
[2024-03-12] MEDS: FUROSEMIDE 20 MG TABLET PO (09:17)
[2024-03-12] MEDS: APIXABAN 5 MG TABLET PO (09:17)
[2024-03-12] MEDS: LOSARTAN 25 MG TABLET PO (09:17)
[2024-03-12] MEDS: METOPROLOL IR 50 MG TABLET 100 MG PO ×2 (09:17→20:12)
[2024-03-12] MEDS: LACTOBACILLUS ACIDOPHILUS TABLET 1 EACH PO ×2 (09:17→20:11)
[2024-03-12] MEDS: VANCOMYCIN 1,500 MG/300 ML PIGGYBACK 200 MG IV (09:32)
--- NOTE | 2024-03-12 10:37 | PM.PN.1 ---
Subjective Subjective Interval history: The left hand is a little bit better but still quite swollen and painful. He denies any chest pain, or dyspnea. No abdominal pain, or nausea. Exam Vital Signs (past 8 hours): - 03/12/24 03:30 03/12/24 05:00 03/12/24 08:00 Temperature 98.5 F 97.8 F Pulse Rate 66 73 83 Respiratory Rate 18 16 Blood Pressure 108/37 L 121/55 L 127/41 L Pulse Oximetry 100 98 97 Oxygen Flow Rate 0 0 0 03/12/24 09:17 Temperature Pulse Rate 83 Respiratory Rate Blood Pressure 127/41 L Pulse Oximetry Oxygen Flow Rate Oxygen Delivery Method Room Air Oxygen Flow Rate 0 Narrative Exam Narrative: NAD, alert and oriented. Fluent speech. Lungs are clear, normal rate and effort. Heart is regular, no murmur gallop or rub. Abdomen is soft, non distended. Extremities are free of edema. Left hand is swollen dorsally and warm. He does have a fairly normal range of motion at all MCPs and wrist. There is no obvious fluctuance. There has no drainage. Objective Labs 03/11/24 10:03 03/11/24 10:03 Labs: Laboratory Results - last 24 hr 03/11/24 03/11/24 10:03 15:28 Hemoglobin A1c 8.4 H Nasal Screen MRSA (PCR) Not detected [facility] Medical History Opiate dependence Peripheral autonomic neuropathy due to diabetes mellitus Sacral back pain Diabetes, type 1.5, uncontrolled, managed as type 2 Myocardial infarct (10/17/06) Hx of drug abuse Measles (Unknown) GERD (gastroesophageal reflux disease) (Unknown) Hyperlipemia (Unknown) Obstructive sleep apnea (Unknown) Atrial fibrillation (Unknown) Hypertension (Unknown) Hepatitis C (Unknown) Peripheral vascular disease (Unknown) Carotid artery disease (Unknown) Hypothyroidism (Unknown) Erectile dysfunction (Unknown) Coronary artery disease involving coronary bypass graft of [place] heart without angina pectoris (09/11/15) Surgical History History of penile implant History of open reduction and internal fixation (ORIF) procedure (09/2010) Hx of coronary artery bypass surgery (10/2006) Hx of cataract surgery (~2004) S/P bilateral below knee amputation (Unknown) Family History Father Age: 88 Heart disease ETOH abuse Mother Age: 96 Heart disease Alzheimer's dementia without behavioral disturbance, Alzheimer's disease of unspecified onset Social History household members: spouse Smoking Status: Former smoker alcohol intake: current substance use type: does not use Assessment & Plan Assessment & Plan narrative: 1. Left hand soft tissue infection, present on admission and active. 2. Opiate dependence, present on admission and active. 3. Diabetes mellitus 2, insulin dependent, present on admission and active. 4. HTM, present on admission and active. 5. Chronic atrial fibrillation, present on admission and active. 6. Chronic anticoagulation, present on admission and active. Plan: -IV antibiotics, nares MRSA screen NEGATIVE. -ultrasound left hand, rule out fluid collection or abscess. Reveals a phegmon. Will discuss with ortho. -continue chronic medications for diabetes, and atrial fibrillation. Full resuscitation Quality VTE Deep Vein Thrombosis/Pulmonary Embolism Present on Admission: No
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
[2024-03-12] MEDS: INSULIN LISPRO 100 UNIT/ML 3ML VIAL SUBCUT ×3 (12:46→20:16)
[2024-03-12 16:00] VITALS: BP 135/49; PULSE 84; RESP 16; TEMP 36.9; O2SAT 96
--- NOTE | 2024-03-12 19:52 | PM.HP.1 ---
History of Present Illness History of Present Illness Chief complaint: Left hand pain Narrative: I was consulted regarding this patient's hand. He has had an I and D of his hand in the past. He injects oxycodone into the back of his hand regularly. He has an insulin-dependent diabetic who has had bilateral below-knee amputations. He is chronically anticoagulated having most recently taken his apixaban this morning. He complains of pain in the dorsum of his hand. [facility] Medical History Opiate dependence Peripheral autonomic neuropathy due to diabetes mellitus Sacral back pain Diabetes, type 1.5, uncontrolled, managed as type 2 Myocardial infarct (10/17/06) Hx of drug abuse Measles (Unknown) GERD (gastroesophageal reflux disease) (Unknown) Hyperlipemia (Unknown) Obstructive sleep apnea (Unknown) Atrial fibrillation (Unknown) Hypertension (Unknown) Hepatitis C (Unknown) Peripheral vascular disease (Unknown) Carotid artery disease (Unknown) Hypothyroidism (Unknown) Erectile dysfunction (Unknown) Coronary artery disease involving coronary bypass graft of [place] heart without angina pectoris (09/11/15) Surgical History History of penile implant History of open reduction and internal fixation (ORIF) procedure (09/2010) Hx of coronary artery bypass surgery (10/2006) Hx of cataract surgery (~2004) S/P bilateral below knee amputation (Unknown) Family History Father Age: 88 Heart disease ETOH abuse Mother Age: 96 Heart disease Alzheimer's dementia without behavioral disturbance, Alzheimer's disease of unspecified onset Social History household members: spouse Smoking Status: Former smoker alcohol intake: current substance use type: does not use Meds Home Medications and Allergies Home Medications Medication Instructions Recorded Confirmed Type metoprolol tartrate 100 mg tablet See Rx Instructions .Route 10/16/20 03/11/24 Rx .COMPLEX #180 tabs losartan 25 mg tablet 25 mg PO DAILY #90 tabs 10/20/20 03/11/24 Rx apixaban 5 mg tablet 5 mg PO BID 08/22/21 03/11/24 History Liners, suspension sleeves, and #1 ea 09/11/21 03/11/24 Rx socks L.acidophilus-L.bulgar-B.bifid-S.thermoph 1 ea PO BID #120 tabs 11/05/21 03/11/24 Rx 1 billion cell-250 mg tablet (Bacid) Syringes: 1cc Insulin Syringes #100 ea 11/19/22 03/11/24 Rx with [place] blood sugar diagnostic (OneTouch #250 ea 10/24/23 03/11/24 Rx Ultra Test strips) Glucose: Test Strips #250 ea 11/12/23 03/11/24 Rx blood sugar diagnostic (OneTouch #100 ea 12/05/23 03/11/24 Rx Ultra Test strips) furosemide 20 mg tablet 20 mg PO QDAY #90 tabs 12/22/23 03/11/24 Rx insulin human U-100 NPH-regulr See Rx Instructions .Route 12/22/23 03/11/24 Rx 70-30 mix 100 unit/mL subcutaneous .COMPLEX #30 mL susp (Novolin 70/30 U-100 Insulin) levothyroxine 175 mcg tablet 175 mcg PO DAILY #90 tabs 12/22/23 03/11/24 Rx rosuvastatin 20 mg tablet 20 mg PO BEDTIME #90 tabs 12/22/23 03/11/24 Rx tamsulosin 0.4 mg capsule 0.4 mg PO ONCE PM #90 caps 01/19/24 03/11/24 Rx naloxone 4 mg/actuation nasal 4 mg intranasal Q2M #2 ea 02/09/24 03/11/24 Rx spray (Narcan) Allergies Allergy/AdvReac Type Severity Reaction Status Date / Time cephalexin Allergy Severe Blister Verified 02/09/24 12:41 Cephalosporins Allergy Blister Verified 02/09/24 12:41 adhesive tape [ADHESIVE TAPE] AdvReac Mild PATIENT Verified 02/09/24 12:41 STATES IT PEELS HIS SKIN OFF lisinopril [LISINOPRIL] AdvReac Mild COUGH Verified 02/09/24 12:41 prochlorperazine AdvReac Unknown Verified 02/09/24 12:41 [PROCHLORPERAZINE] shellfish derived AdvReac Unknown Verified 02/09/24 12:41 [SHELLFISH DERIVED] Review of Systems Review of Systems ROS: Yes All systems reviewed with the patient and are negative except as otherwise documented Exam Vital Signs (past 8 hours): - 03/12/24 16:00 Temperature 98.5 F Pulse Rate 84 Respiratory Rate 16 Blood Pressure 135/49 L Pulse Oximetry 96 Oxygen Delivery Method Room Air Oxygen Flow Rate 0 Narrative Exam Narrative: Left hand examination demonstrates fluctuance throughout the 1st webspace. He is tender to palpation in that region. This is per report the area where he has injected oxycodone recently. He has no tenderness to palpation in the volar aspect of his hand as would be indicative of a horse collar abscess. He has full range of motion with flexion and extension of the hand. He has no erythema tracking proximally. Const General: cooperative Orientation: alert and awake HENMS Head: normal to inspection Ears: hearing grossly normal bilaterally Eyes General: appearance normal, both eyes and all related structures Neck Neck: normal visual inspection Resp Effort & Inspection: normal respiratory effort and able to speak in complete sentences Cardio Pulses: other (peripheral pulses present) Skin Lesions: no lesions Rashes: no rashes Neuro General: patient alert, patient awake and moves all extremities Psych Appearance: grossly normal Objective Labs 03/11/24 10:03 03/11/24 10:03 Assessment & Plan Assessment and plan (1) Infection of left hand: Status: Acute Plan Left hand abscess. Patient has an examination consistent with a fluid collection in the left hand. Given his history of IV injections there, I would recommend incision and debridement to evacuate the presumed abscess and to obtain appropriate cultures. He took his apixaban this morning and therefore I will plan to move forward with this on Friday. We will work through the coordination process on Friday in anticipation of an incision and debridement Friday. Quality VTE Deep Vein Thrombosis/Pulmonary Embolism Present on Admission: No
[2024-03-12] MEDS: ATORVASTATIN 20 MG TABLET 40 MG PO (20:12)
[2024-03-12] MEDS: TAMSULOSIN 0.4 MG CAPSULE PO (20:12)
[2024-03-12 20:17] VITALS: BP 144/73; PULSE 84; RESP 16; TEMP 36.4; O2SAT 96
[2024-03-12] MEDS: INSULIN NPH 100 UNIT/ML 10ML VIAL 25 UNIT SUBCUT (21:20)
[2024-03-13] MEDS: OXYCODONE IR 5 MG TABLET PO ×5 (00:34→22:08)
[2024-03-13] MEDS: VANCOMYCIN 1,500 MG/300 ML PIGGYBACK 200 MG IV ×2 (00:34→11:29)
[2024-03-13] MEDS: LEVOTHYROXINE 100 MCG, LEVOTHYROXINE 75 MCG 175 MCG PO (06:25)
--- NOTE | 2024-03-13 07:39 | PM.PN.1 ---
Subjective Subjective Interval history: He is doing better today. His hand is less swollen. There is 1 area where things are coming to a head just above the hypothenar eminence. He slept well. No chest pain or dyspnea. Exam Vital Signs (past 8 hours): Oxygen Delivery Method Room Air Oxygen Flow Rate 0 Narrative Exam Narrative: NAD, alert and oriented. Fluent speech. Lungs are clear, normal rate and effort. Heart is regular, no murmur gallop or rub. Abdomen is soft, non distended. Extremities are free of edema. Right hand: Less global swelling and redness. There is more focal organization of erythema in the above the hypothenar eminence . Objective Labs 03/11/24 10:03 03/11/24 10:03 [facility] Medical History Opiate dependence Peripheral autonomic neuropathy due to diabetes mellitus Sacral back pain Diabetes, type 1.5, uncontrolled, managed as type 2 Myocardial infarct (10/17/06) Hx of drug abuse Measles (Unknown) GERD (gastroesophageal reflux disease) (Unknown) Hyperlipemia (Unknown) Obstructive sleep apnea (Unknown) Atrial fibrillation (Unknown) Hypertension (Unknown) Hepatitis C (Unknown) Peripheral vascular disease (Unknown) Carotid artery disease (Unknown) Hypothyroidism (Unknown) Erectile dysfunction (Unknown) Coronary artery disease involving coronary bypass graft of [place] heart without angina pectoris (09/11/15) Surgical History History of penile implant History of open reduction and internal fixation (ORIF) procedure (09/2010) Hx of coronary artery bypass surgery (10/2006) Hx of cataract surgery (~2004) S/P bilateral below knee amputation (Unknown) Family History Father Age: 88 Heart disease ETOH abuse Mother Age: 96 Heart disease Alzheimer's dementia without behavioral disturbance, Alzheimer's disease of unspecified onset Social History household members: spouse Smoking Status: Former smoker alcohol intake: current substance use type: does not use Assessment & Plan Assessment & Plan narrative: 1. Left hand soft tissue infection, present on admission and active. 2. Opiate dependence, present on admission and active. 3. Diabetes mellitus 2, insulin dependent, present on admission and active. 4. HTM, present on admission and active. 5. Chronic atrial fibrillation, present on admission and active. 6. Chronic anticoagulation, present on admission and active. Plan: -Continue IV antibiotics, nares MRSA screen NEGATIVE. -ultrasound left hand, reveals a phegmon. Discussed with ortho ([place]), I&D 03/14. . -continue chronic medications for diabetes, and atrial fibrillation. -decreased insulin 03/12 for hypoglycemia. -NPO midnight Full resuscitation Quality VTE Deep Vein Thrombosis/Pulmonary Embolism Present on Admission: No
[2024-03-13 08:00] VITALS: BP 128/71; PULSE 76; RESP 18; TEMP 36.6; O2SAT 96
[2024-03-13 08:13] VITALS: BP 144/73; PULSE 84
[2024-03-13] MEDS: LOSARTAN 25 MG TABLET PO (08:13)
[2024-03-13] MEDS: METOPROLOL IR 50 MG TABLET 100 MG PO ×2 (08:13→21:58)
[2024-03-13] MEDS: LACTOBACILLUS ACIDOPHILUS TABLET 1 EACH PO ×2 (08:13→21:58)
[2024-03-13] MEDS: INSULIN LISPRO 100 UNIT/ML 3ML VIAL SUBCUT ×3 (08:14→17:07)
[2024-03-13] MEDS: FUROSEMIDE 20 MG TABLET PO (08:14)
[2024-03-13] MEDS: INSULIN NPH 100 UNIT/ML 10ML VIAL 25 UNIT SUBCUT ×2 (08:16→22:03)
--- NOTE | 2024-03-13 08:28 | CM.DPNOTE ---
DCP Cont Chart reviewed. Ortho consulted and recommending I+D of the fluid that has collected in patient's left hand. I+D expected Friday03.14.24. Discharge home w/family is still anticipated. CM team will continue to follow closely in case any coordination needs arise. JIMENA
[2024-03-13] MEDS: polyethylene glycoL 3350 17 GM POWD.PACK PO ×2 (10:02→21:58)
[2024-03-13 10:46] LABS: Vancomycin Trough 16.4 ug/mL (10-20)
[2024-03-13] MEDS: VANCOMYCIN TROUGH 1 REQUEST MISC (11:30)
[2024-03-13 12:00] VITALS: BP 103/47; PULSE 75; RESP 17; TEMP 36.7; O2SAT 98
--- NOTE | 2024-03-13 14:32 | PM.PN.1 ---
Subjective Subjective Interval history: Tulio is a pleasant 78 year old male who is seen for evaluation of a left hand abscess. He was seen by Dr. Montoya yesterday for orthopedic consultation. Patient notes his pain has improved slightly from yesterday. Pmhx significant for IVDU and quadruple bypass surgery, he has been chronically on Eliquis since then. He is an insulin-dependent diabetic who has had bilateral below-knee amputations. 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 Denies fever, chills, chest pain, SOB, nausea, vomiting. Exam Vital Signs (past 8 hours): - 03/13/24 08:00 03/13/24 08:13 03/13/24 12:00 Temperature 98 F 98.1 F Pulse Rate 76 84 75 Respiratory Rate 18 17 Blood Pressure 128/71 144/73 H 103/47 L Pulse Oximetry 96 98 Oxygen Flow Rate 0 0 Oxygen Delivery Method Room Air Oxygen Flow Rate 0 Narrative Exam Narrative: Left hand examination demonstrates fluctuance throughout the 1st webspace. He is tender to palpation in that region. He has no tenderness to palpation in the volar aspect of his hand as would be indicative of a horse collar abscess. He has no erythema tracking proximally. Finger to thumb opposition intact, 5/5 customs compliance analyst strength. Sensation intact to all fingers equally. Const General: cooperative Orientation: alert and awake [facility] Head: normal to inspection Ears: hearing grossly normal bilaterally Eyes General: appearance normal, both eyes and all related structures Neck Neck: normal visual inspection Resp Effort & Inspection: normal respiratory effort and able to speak in complete sentences Cardio Rate: regular rate Pulses: other (peripheral pulses present) Skin Lesions: no lesions Rashes: no rashes Neuro General: patient alert, patient awake and moves all extremities Psych Appearance: grossly normal Objective Labs 03/11/24 10:03 03/11/24 10:03 Labs: Laboratory Results - last 24 hr 03/13/24 10:10 Vancomycin Trough 16.4 PFSH Medical History Opiate dependence Peripheral autonomic neuropathy due to diabetes mellitus Sacral back pain Diabetes, type 1.5, uncontrolled, managed as type 2 Myocardial infarct (10/17/06) Hx of drug abuse Measles (Unknown) GERD (gastroesophageal reflux disease) (Unknown) Hyperlipemia (Unknown) Obstructive sleep apnea (Unknown) Atrial fibrillation (Unknown) Hypertension (Unknown) Hepatitis C (Unknown) Peripheral vascular disease (Unknown) Carotid artery disease (Unknown) Hypothyroidism (Unknown) Erectile dysfunction (Unknown) Coronary artery disease involving coronary bypass graft of [place] heart without angina pectoris (09/11/15) Surgical History History of penile implant History of open reduction and internal fixation (ORIF) procedure (09/2010) Hx of coronary artery bypass surgery (10/2006) Hx of cataract surgery (~2004) S/P bilateral below knee amputation (Unknown) Family History Father Age: 88 Heart disease ETOH abuse Mother Age: 96 Heart disease Alzheimer's dementia without behavioral disturbance, Alzheimer's disease of unspecified onset Social History household members: spouse Smoking Status: Former smoker alcohol intake: current substance use type: does not use Assessment & Plan Assessment and plan (1) Abscess of left hand: Status: Acute Plan Plan for incision and debridement to evacuate the presumed abscess and to obtain appropriate cultures tommorow by Dr. Montoya. Patient to be maintained NPO status at midnight. Hold Eliquis until after surgery. Continue multimodal pain management. Quality VTE Deep Vein Thrombosis/Pulmonary Embolism Present on Admission: No
[2024-03-13 16:00] VITALS: BP 130/62; PULSE 80; RESP 18; TEMP 36.7; O2SAT 96
[2024-03-13 20:00] VITALS: BP 148/77; PULSE 74; RESP 17; TEMP 36.7; O2SAT 96
[2024-03-13] MEDS: TAMSULOSIN 0.4 MG CAPSULE PO (21:58)
[2024-03-13] MEDS: ATORVASTATIN 20 MG TABLET 40 MG PO (21:58)
[2024-03-14] VITALS (12 sets, daily range): BP systolic 106–158; BP diastolic 43–87; PULSE 60–98; RESP 14–20; TEMP 36.3–37.1; O2SAT 89–100
[2024-03-14] MEDS: VANCOMYCIN 1,250 MG/250 ML PIGGYBACK 250 MG IV ×2 (00:13→11:34)
[2024-03-14] MEDS: DEXTROSE 10 % IN WATER 100 ML 999 ML IV ×2 (05:28→06:19)
--- NOTE | 2024-03-14 07:19 | PM.PN.1 ---
Subjective Subjective Interval history: Low glucose again over night, even after a significant reduction yesterday in insulin. Exam Vital Signs (past 8 hours): - 03/14/24 01:30 03/14/24 05:22 Temperature 98.0 F 98.8 F Pulse Rate 76 74 Respiratory Rate 18 18 Blood Pressure 150/87 H 148/76 H Pulse Oximetry 96 96 Oxygen Flow Rate 0 0 Oxygen Delivery Method Room Air Oxygen Flow Rate 0 Narrative Exam Narrative: NAD, alert and oriented. Fluent speech. Lungs are clear, normal rate and effort. Heart is regular, no murmur gallop or rub. Abdomen is soft, non distended. Extremities are free of edema. Objective Labs 03/11/24 10:03 03/11/24 10:03 Labs: Laboratory Results - last 24 hr 03/13/24 10:10 Vancomycin Trough 16.4 PFSH Medical History Opiate dependence Peripheral autonomic neuropathy due to diabetes mellitus Sacral back pain Diabetes, type 1.5, uncontrolled, managed as type 2 Myocardial infarct (10/17/06) Hx of drug abuse Measles (Unknown) GERD (gastroesophageal reflux disease) (Unknown) Hyperlipemia (Unknown) Obstructive sleep apnea (Unknown) Atrial fibrillation (Unknown) Hypertension (Unknown) Hepatitis C (Unknown) Peripheral vascular disease (Unknown) Carotid artery disease (Unknown) Hypothyroidism (Unknown) Erectile dysfunction (Unknown) Coronary artery disease involving coronary bypass graft of [place] heart without angina pectoris (09/11/15) Surgical History History of penile implant History of open reduction and internal fixation (ORIF) procedure (09/2010) Hx of coronary artery bypass surgery (10/2006) Hx of cataract surgery (~2004) S/P bilateral below knee amputation (Unknown) Family History Father Age: 88 Heart disease ETOH abuse Mother Age: 96 Heart disease Alzheimer's dementia without behavioral disturbance, Alzheimer's disease of unspecified onset Social History household members: spouse Smoking Status: Former smoker alcohol intake: current substance use type: does not use Assessment & Plan Assessment & Plan narrative: 1. Left hand soft tissue infection, present on admission and active. 2. Opiate dependence, present on admission and active. 3. Diabetes mellitus 2, insulin dependent, present on admission and active. 4. HTM, present on admission and active. 5. Chronic atrial fibrillation, present on admission and active. 6. Chronic anticoagulation, present on admission and active. Plan: -Continue IV antibiotics, nares MRSA screen NEGATIVE. -ultrasound left hand, reveals a phegmon. Discussed with ortho ([place]), I&D 03/14. . -continue chronic medications for diabetes, and atrial fibrillation. -decreased insulin 03/12 for hypoglycemia. -NPO midnight Full resuscitation Quality VTE Deep Vein Thrombosis/Pulmonary Embolism Present on Admission: No
--- NOTE | 2024-03-14 08:19 | PM.PN.1 ---
Subjective Subjective Interval history: Patient seen this morning. Resting comfortably. Being prepped for surgery. No acute distress Exam Vital Signs (past 8 hours): - 03/14/24 01:30 03/14/24 05:22 03/14/24 08:00 Temperature 98.0 F 98.8 F Pulse Rate 76 74 72 Respiratory Rate 18 18 18 Blood Pressure 150/87 H 148/76 H 133/59 L Pulse Oximetry 96 96 98 Oxygen Flow Rate 0 0 0 Oxygen Delivery Method Room Air Oxygen Flow Rate 0 Narrative Exam Narrative: Left upper extremity demonstrates a consolidation in the area of the 1st webspace where he has worsening fluctuance and darkening erythema. The cellulitis in the remainder of the hand has diminished in the last 2 days. He continues to have no tenderness to palpation in the volar aspect of his hand or extending up his wrist. He continues to have uninhibited range of motion in both flexion and extension Const General: cooperative Orientation: alert and awake HENMT Head: normal to inspection Ears: hearing grossly normal bilaterally Eyes General: appearance normal, both eyes and all related structures Neck Neck: normal visual inspection Resp Effort & Inspection: normal respiratory effort and able to speak in complete sentences Cardio Pulses: other (peripheral pulses present) Skin Lesions: no lesions Rashes: no rashes Neuro General: patient alert, patient awake and moves all extremities Psych Appearance: grossly normal Objective Imaging Left hand ultrasound: Radiologist's impression: Radiology read of left hand ultrasound demonstrated a fluid collection Labs 03/11/24 10:03 03/11/24 10:03 Labs: Laboratory Results - last 24 hr 03/13/24 10:10 Vancomycin Trough 16.4 PFSH Medical History Opiate dependence Peripheral autonomic neuropathy due to diabetes mellitus Sacral back pain Diabetes, type 1.5, uncontrolled, managed as type 2 Myocardial infarct (10/17/06) Hx of drug abuse Measles (Unknown) GERD (gastroesophageal reflux disease) (Unknown) Hyperlipemia (Unknown) Obstructive sleep apnea (Unknown) Atrial fibrillation (Unknown) Hypertension (Unknown) Hepatitis C (Unknown) Peripheral vascular disease (Unknown) Carotid artery disease (Unknown) Hypothyroidism (Unknown) Erectile dysfunction (Unknown) Coronary artery disease involving coronary bypass graft of [place] heart without angina pectoris (09/11/15) Surgical History History of penile implant History of open reduction and internal fixation (ORIF) procedure (09/2010) Hx of coronary artery bypass surgery (10/2006) Hx of cataract surgery (~2004) S/P bilateral below knee amputation (Unknown) Family History Father Age: 88 Heart disease ETOH abuse Mother Age: 96 Heart disease Alzheimer's dementia without behavioral disturbance, Alzheimer's disease of unspecified onset Social History household members: spouse Smoking Status: Former smoker alcohol intake: current substance use type: does not use Assessment & Plan Assessment and plan (1) Abscess of left hand: Status: Acute Plan 1. Incision and debridement of left hand to be performed today. We will obtain intraoperative cultures 2. Discharge home on empiric oral antibiotics for MRSA. Tailor in outpatient setting should he have culture results which show incompatibility due to resistance. Recommend against course of outpatient IV antibiotics given his social history and a new [place] Journal of Medicine randomized controlled trial showing that oral antibiotics are equally effective as IV antibiotics for bone and soft tissue infections - https://www.nejm.org/doi/pdf/10.1056/VVQEwv1207108 3. Risks and benefits of surgery discussed with the patient. Informed consent signed. Operative site marked Quality VTE Deep Vein Thrombosis/Pulmonary Embolism Present on Admission: No
--- NOTE | 2024-03-14 08:26 | SUR.OPER ---
Supine on padded OR bed, head on pillow, arms secured on padded arm boards at <90 degrees abduction, legs uncrossed, safety belt at thigh, tape over blanket over lower legs.
[2024-03-14] MEDS: LACTATED RINGERS 1,000 ML 42 ML IV (08:40)
[2024-03-14] MEDS: BUPIVACAINE 0.25% (PF) 30 ML, EPINEPHrine 0.15 MG INJ (09:49)
--- NOTE | 2024-03-14 09:53 | PM.OP.1 ---
Operative Date/Time/Diagnoses Date of procedure: 03/14/24 Pre-op diagnosis: Left hand abscess Post-op diagnosis: same Procedure & Clinicians Procedure: Incision and debridement left hand Same procedure as scheduled: Yes Surgeon: Jordy Montoya Click Yes if Unassisted: Yes Anesthesia Type: General and Local Operative Notes Prosthetic devices, grafts, tissues, transplants, or devices: This 78-year-old male patient is a diabetic with a history of bilateral below-knee amputations as well as prior hand infections. He is a chronic opiate user and injects opiates into his left hand. He developed erythema swelling and fluctuance in the area of his injections. I evaluated him 48 hours ago and felt that he likely had a abscess forming in his dorsal 1st web space. He is on blood thinner so we began IV antibiotics and waited 48 hours to limit his bleeding following a debridement. In those 48 hours his cellulitis in his hand improved however he developed worsening erythema, swelling, fluctuance in the area of his dorsal 1st web space. There was no volar involvement. He had no discomfort with range of motion of either his flexor extensor tendons. He was counseled regarding surgery. The operative site was marked and informed consent was signed. He was wheeled back to the operating room and general anesthesia was induced. The operative site was prepped and draped in the usual sterile fashion. A time-out procedure was performed. I incised directly over the area of fluctuance in the 1st web space along the line of the 2nd metacarpal. There was immediate egress of milky purulent fluid. Two swabs were obtained of this. I also utilized a syringe to obtain indirect fluid sample. These were sent for aerobic anaerobic and Gram stain. I debrided skin, subcutaneous tissue, tendon, bone using dissecting forceps. I was able to evacuate a significant abscess in that area. I irrigated with normal saline and then soaked the abscess cavity in Betadine. I then irrigated with additional normal saline for a total of 3 L of irrigation. I placed iodoform packing in the wound. I closed with 2 simple interrupted nylon sutures leaving an area centrally for ongoing drainage. A soft dressing was applied. The patient was awoken from anesthesia and brought to the PACU without immediate apparent complication. Postoperative plan: 1. Recommend empiric oral antibiotics which will provide MRSA coverage in the outpatient setting 2. Please provide patient with a basin, normal saline, and chlorhexidine. He should institute warm soapy soaks in which he feels a basin with normal saline and some chlorhexidine and soaked the hand for 20 minutes 3 times per day 3. Iodoform packing can be removed 48 hours postoperatively and does not need to be replaced 4. Follow up in the outpatient setting with a physician instruction assistant principal at [facility] in 3-6 days to review cultures and ensure appropriate antibiotic coverage as well as perform a wound check
--- NOTE | 2024-03-14 10:58 | CM.DPNOTE ---
DCP Note ENVIRONMENTAL SCIENCE TECHNICIAN reviewed EMR. Per provider in morning rounds, anticipate dc later today. Per RN, pt mobilizing indep in room with prosthesis. Cleared to dc home today. ENVIRONMENTAL SCIENCE TECHNICIAN met with pt in room. Pt concerned about dc home today. Pt reports spouse is not going to be at home to be with him and had recent back surg herself/is driving grandson around today. ENVIRONMENTAL SCIENCE TECHNICIAN conveyed that unfortunately, those are not medical reasons to remain in the hospital another night. ENVIRONMENTAL SCIENCE TECHNICIAN reviewed IMM with pt. Pt reports he will figure it out for dc home today. ENVIRONMENTAL SCIENCE TECHNICIAN offered to call a cab for pt. Pt declined at this time. Pt reports having a walker he uses at home- denies other equip at this time. Plan: anticipate home later today on oral antibiotics. CM team will follow closely for transport needs/additional barriers to safe dc home. ARSENIO Vargas
[2024-03-14] MEDS: OXYCODONE IR 5 MG TABLET PO (11:34)
--- NOTE | 2024-03-14 11:36 | P.DS_ITS ---
History of Present Illness History of Present Illness Chief complaint: Left hand pain Narrative: The patient is a 78-year-old male with a history of insulin-dependent diabetes as well as bilateral BKA. He is chronically anticoagulated. He presents with a left hand infection. This hand infection has been going on for several days and he was redness and swelling over the posterior aspect of his hand distal to the wrist. The patient does inject oxycodone in multiple veins in the back of his hand. He uses 3 to 6 times a week, proximally 20 mg of oxycodone per session. He has no history of MRSA. He denies fevers, or chills. He does have a sensitive stomach due to diabetic induced gastroparesis. He does have range of motion which is fairly normal at the wrist and all joints of the hand. Ultrasound in the ED was negative for evidence of a fluid collection. Discharge Providers Provider Date of admission: 03/11/24 11:29 Primary care physician: Sobia Draper DO Consults: 03/12/24 19:52 Consult to Orthopedic Surgery Routine Comment: Consulting Provider: Jordy Montoya Reason for consultation: Hand infection Has provider been notified: Yes 03/14/24 10:58 Consult to Discharge Planning Routine Comment: Discharge provider: Paresh Kelley MD Exam Vital Signs (past 8 hours): - 03/14/24 05:22 03/14/24 08:00 03/14/24 08:41 Temperature 98.8 F 97.4 F L Pulse Rate 74 72 88 Respiratory Rate 18 18 14 Blood Pressure 148/76 H 133/59 L 138/71 Pulse Oximetry 96 98 96 Oxygen Delivery Method Room Air Oxygen Flow Rate 0 0 03/14/24 09:54 03/14/24 09:59 03/14/24 10:03 Temperature 97.3 F L Pulse Rate 74 84 82 Respiratory Rate 20 15 16 Blood Pressure 106/50 L 131/60 137/62 Pulse Oximetry 89 L 98 100 Oxygen Delivery Method Room Air Nasal Cannula Nasal Cannula Oxygen Flow Rate 2 2 03/14/24 10:10 03/14/24 10:58 Temperature 97.8 F Pulse Rate 82 91 H Respiratory Rate 16 18 Blood Pressure 144/54 H 158/71 H Pulse Oximetry 98 98 Oxygen Delivery Method Nasal Cannula Oxygen Flow Rate 2 0 Oxygen Delivery Method Nasal Cannula Oxygen Flow Rate 0 Objective Labs 03/11/24 10:03 03/11/24 10:03 [facility] Medical History Opiate dependence Peripheral autonomic neuropathy due to diabetes mellitus Sacral back pain Diabetes, type 1.5, uncontrolled, managed as type 2 Myocardial infarct (10/17/06) Hx of drug abuse Measles (Unknown) GERD (gastroesophageal reflux disease) (Unknown) Hyperlipemia (Unknown) Obstructive sleep apnea (Unknown) Atrial fibrillation (Unknown) Hypertension (Unknown) Hepatitis C (Unknown) Peripheral vascular disease (Unknown) Carotid artery disease (Unknown) Hypothyroidism (Unknown) Erectile dysfunction (Unknown) Coronary artery disease involving coronary bypass graft of [place] heart without angina pectoris (09/11/15) Surgical History History of penile implant History of open reduction and internal fixation (ORIF) procedure (09/2010) Hx of coronary artery bypass surgery (10/2006) Hx of cataract surgery (~2004) S/P bilateral below knee amputation (Unknown) Family History Father Age: 88 Heart disease ETOH abuse Mother Age: 96 Heart disease Alzheimer's dementia without behavioral disturbance, Alzheimer's disease of unspecified onset Social History household members: spouse Smoking Status: Former smoker alcohol intake: current substance use type: does not use Discharge Plan Discharge Plan Patient Disposition: Home Provider Discharge Comment: Stable for discharge home with oral antibiotics and close follow up with Orthopedics. Discharge orders & Medications Prescriptions: New doxycycline monohydrate 100 mg capsule 100 mg PO BID Qty: 14 0RF Continued metoprolol tartrate 100 mg tablet See Rx Instructions .ROUTE .COMPLEX Qty: 180 3RF Dose Instruction: take 1 tablet by mouth twice a day Rx Instructions: 100 BID losartan 25 mg tablet 25 mg PO DAILY Qty: 90 3RF apixaban 5 mg tablet 5 mg PO BID (DME) Liners, suspension sleeves, and socks See Rx Instructions .Route .MEDSUPPLY Qty: 1 0RF Rx Instructions: As directed (DME) Syringes: 1cc Insulin Syringes with [place] 0 .Route .MEDSUPPLY Qty: 100 3RF Dose Instruction: As directed Rx Instructions: Use 1 syringe with 30x12.7 mm needle to inject insulin four times daily. (DME) OneTouch Ultra Test Strip See Rx Instructions .Route Qty: 250 5RF Rx Instructions: use one strip to test blood glucose four times daily (DME) Glucose: Test Strips See Rx Instructions .Route .MEDSUPPLY Qty: 250 6RF Dose Instruction: QID; Rx Instructions: Test blood sugar four times a day for type 2 diabetes (DME) OneTouch Ultra Test Strip See Rx Instructions .Route Qty: 100 11RF Rx Instructions: test blood sugar 4 times daily furosemide 20 mg tablet 20 mg PO QDAY Qty: 90 3RF Novolin 70/30 U-100 Insulin 100 unit/mL (70-30) suspension See Rx Instructions .ROUTE .COMPLEX Qty: 30 5RF Dose Instruction: ADMINISTER 40 UNITS UNDER THE SKIN TWICE DAILY BEFORE MEALS Patient Comments: ADMINISTER 40 UNITS UNDER THE SKIN TWICE DAILY BEFORE MEALS Rx Instructions: ADMINISTER 40 UNITS UNDER THE SKIN TWICE DAILY BEFORE MEALS rosuvastatin 20 mg tablet 20 mg PO BEDTIME Qty: 90 3RF Hold Instructions: Needs labs levothyroxine 175 mcg tablet 175 mcg PO DAILY Qty: 90 3RF tamsulosin 0.4 mg capsule 0.4 mg PO ONCE PM Qty: 90 0RF naloxone [Narcan] 4 mg/actuation spray,non-aerosol 4 mg intranasal Q2M Qty: 2 5RF Rx Instructions: spray 1 dose into ONE nostril; alternate nostrils w each dose until help arrives Bacid 1 billion cell- 250 mg Tablet 1 ea PO BID Qty: 120 0RF Medication counseling provided by Pharmacist: No Follow up/Referrals: Sobia Draper DO [Primary Care Provider] - Discharge Health Status Multidrug resistant organism: No MDRO Diet/Activity/Treatments Diet: Carb-consistent/Diabetic Activity: As tolerated Skin/Wound/Dressing Care Report to your healthcare provider any signs of infection, such as:: chills, fever, increased pain and unusual drainage Visit Report/Discharge Packet Instructions: DI for Incision and Drainage of a Joint, DI for Incision and Drainage, [facility]: Wound Care Stand Alone Forms: Patient Portal/API Discharge Data Primary Care Provider: Sobia Draper Attending Provider: Paresh Kelley Admit Date/Time: 03/11/24 11:29 Quality VTE Deep Vein Thrombosis/Pulmonary Embolism Present on Admission: No
[2024-03-14] MEDS: INSULIN LISPRO 100 UNIT/ML 3ML VIAL SUBCUT ×3 (11:57→22:33)
[2024-03-14] MEDS: ACETAMINOPHEN 325 MG TABLET 650 MG PO (13:16)
[2024-03-14] MEDS: OXYCODONE IR 10 MG TABLET PO ×2 (15:12→22:32)
--- NOTE | 2024-03-14 17:38 | PM.PN.1 ---
Subjective Subjective Interval history: He had I&D. He is having a lot of hand pain and needs to use a walker at home. No chest pain or dyspnea. Exam Vital Signs (past 8 hours): - 03/14/24 09:54 03/14/24 09:59 03/14/24 10:03 Temperature 97.3 F L Pulse Rate 74 84 82 Respiratory Rate 20 15 16 Blood Pressure 106/50 L 131/60 137/62 Pulse Oximetry 89 L 98 100 Oxygen Delivery Method Room Air Nasal Cannula Nasal Cannula Oxygen Flow Rate 2 2 03/14/24 10:10 03/14/24 10:58 03/14/24 11:30 Temperature 97.8 F 97.7 F Pulse Rate 82 91 H 85 Respiratory Rate 16 18 20 Blood Pressure 144/54 H 158/71 H 123/43 L Pulse Oximetry 98 98 98 Oxygen Delivery Method Nasal Cannula Oxygen Flow Rate 2 0 0 03/14/24 12:30 Temperature 98.1 F Pulse Rate 98 H Respiratory Rate 18 Blood Pressure 139/48 L Pulse Oximetry 95 Oxygen Delivery Method Oxygen Flow Rate 0 Oxygen Delivery Method Nasal Cannula Oxygen Flow Rate 0 Narrative Exam Narrative: NAD, alert and oriented. Fluent speech. Lungs are clear, normal rate and effort. Heart is regular, no murmur gallop or rub. Abdomen is soft, non distended. Extremities are free of edema. Left hand is wrapped. Objective Labs 03/11/24 10:03 03/11/24 10:03 [facility] Medical History Opiate dependence Peripheral autonomic neuropathy due to diabetes mellitus Sacral back pain Diabetes, type 1.5, uncontrolled, managed as type 2 Myocardial infarct (10/17/06) Hx of drug abuse Measles (Unknown) GERD (gastroesophageal reflux disease) (Unknown) Hyperlipemia (Unknown) Obstructive sleep apnea (Unknown) Atrial fibrillation (Unknown) Hypertension (Unknown) Hepatitis C (Unknown) Peripheral vascular disease (Unknown) Carotid artery disease (Unknown) Hypothyroidism (Unknown) Erectile dysfunction (Unknown) Coronary artery disease involving coronary bypass graft of [place] heart without angina pectoris (09/11/15) Surgical History History of penile implant History of open reduction and internal fixation (ORIF) procedure (09/2010) Hx of coronary artery bypass surgery (10/2006) Hx of cataract surgery (~2004) S/P bilateral below knee amputation (Unknown) Family History Father Age: 88 Heart disease ETOH abuse Mother Age: 96 Heart disease Alzheimer's dementia without behavioral disturbance, Alzheimer's disease of unspecified onset Social History household members: spouse Smoking Status: Former smoker alcohol intake: current substance use type: does not use Assessment & Plan Assessment & Plan narrative: 1. Left hand soft tissue infection (S/P I&D), present on admission and active. 2. Opiate dependence, present on admission and active. 3. Diabetes mellitus 2, insulin dependent, present on admission and active. 4. HTM, present on admission and active. 5. Chronic atrial fibrillation, present on admission and active. 6. Chronic anticoagulation, present on admission and active. Plan: -will keep overnight for pain control and continue Abx. -Hold NPH and use only correctional tonight (hypoglycemia) Probable discharge 03/15. Full resuscitation Quality VTE Deep Vein Thrombosis/Pulmonary Embolism Present on Admission: No
[2024-03-14] MEDS: METOPROLOL IR 50 MG TABLET 100 MG PO (21:24)
[2024-03-14] MEDS: TAMSULOSIN 0.4 MG CAPSULE PO (21:24)
[2024-03-14] MEDS: DOCUSATE 100 MG CAPSULE PO (21:24)
[2024-03-14] MEDS: LACTOBACILLUS ACIDOPHILUS TABLET 1 EACH PO (21:24)
[2024-03-14] MEDS: ATORVASTATIN 20 MG TABLET 40 MG PO (21:24)
[2024-03-14] MEDS: SENNOSIDES 8.6 MG TABLET 17.2 MG PO (21:25)
[2024-03-15] MEDS: OXYCODONE IR 10 MG TABLET PO ×2 (04:47→11:15)
[2024-03-15 06:05] LABS: Hemoglobin 11.9 g/dL (13.5-17.5); Mean Corpuscular HGB Conc 33.9 % (30-36); Mean Corpuscular Hemoglobin 28.4 PG (26-34); Mean Corpuscular Volume 83.9 fL (80-100); Platelet Count 179 X10^3/uL (150-400); Red Blood Cell Count 4.17 X10^6/uL (4.5-5.9); Red Cell Distribution Width 14.1 % (11.6-14.8); White Blood Cell Count 5.6 X10^3/uL (4.5-11.0)
[2024-03-15] MEDS: LEVOTHYROXINE 100 MCG, LEVOTHYROXINE 75 MCG 175 MCG PO (06:35)
[2024-03-15 07:00] VITALS: BP 134/67; PULSE 78; RESP 20; TEMP 36.7; O2SAT 95
[2024-03-15] MEDS: INSULIN LISPRO 100 UNIT/ML 3ML VIAL SUBCUT ×2 (07:36→11:30)
[2024-03-15] MEDS: INSULIN NPH 100 UNIT/ML 10ML VIAL 15 UNIT SUBCUT (08:01)
[2024-03-15 08:03] VITALS: BP 134/67; PULSE 78
[2024-03-15] MEDS: DOCUSATE 100 MG CAPSULE PO (08:03)
[2024-03-15] MEDS: LOSARTAN 25 MG TABLET PO (08:03)
[2024-03-15] MEDS: FUROSEMIDE 20 MG TABLET PO (08:04)
[2024-03-15] MEDS: METOPROLOL IR 50 MG TABLET 100 MG PO (08:04)
[2024-03-15] MEDS: LACTOBACILLUS ACIDOPHILUS TABLET 1 EACH PO (08:04)
[2024-03-15] MEDS: polyethylene glycoL 3350 17 GM POWD.PACK PO (08:07)
--- NOTE | 2024-03-15 10:47 | PM.DS.1 ---
History of Present Illness History of Present Illness Chief complaint: Left hand pain Narrative: The patient is a 78-year-old male with a history of insulin-dependent diabetes as well as bilateral BKA. He is chronically anticoagulated. He presents with a left hand infection. This hand infection has been going on for several days and he was redness and swelling over the posterior aspect of his hand distal to the wrist. The patient does inject oxycodone in multiple veins in the back of his hand. He uses 3 to 6 times a week, proximally 20 mg of oxycodone per session. He has no history of MRSA. He denies fevers, or chills. He does have a sensitive stomach due to diabetic induced gastroparesis. He does have range of motion which is fairly normal at the wrist and all joints of the hand. Ultrasound in the ED was negative for evidence of a fluid collection. Discharge Providers Provider Date of admission: 03/13/24 11:40 Discharge Date: 03/15/24 Primary care physician: Sobia Draper DO Consults: 03/12/24 19:52 Consult to Orthopedic Surgery Routine Comment: Consulting Provider: Jordy Montoya Reason for consultation: Hand infection Has provider been notified: Yes 03/14/24 10:58 Consult to Discharge Planning Routine Comment: Discharge provider: Paresh Kelley MD Summary Hospital Course Discharge Diagnosis: 1. Left hand soft tissue infection (S/P I&D), present on admission and improved. 2. Opiate dependence, present on admission and active. 3. Diabetes mellitus 2 (labile), insulin dependent, present on admission and active. 4. HTM, present on admission and active. 5. Chronic atrial fibrillation, present on admission and active. 6. Chronic anticoagulation, present on admission and active. Hospital Course: The patient was admitted for left hand cellulitis secondary to injection drug use. The patient was treated empiric antibiotics and initially had diffuse swelling of the dorsal aspect of the hand which improved. Ultrasound indicated a phlegmon in orthopedics was consulted. The infection localized to an abscess over the lateral aspect of the dorsal hand. The patient was taken for incision and drainage on March 14 and improved afterwards. His pain control improved and in the day of discharge he was felt to be stable for discharge and able to use his walker. Blood cultures remained negative and initial Gram stain and culture of the left hand drainage were negative. A nares MRSA screen was negative. The patient will be discharged on oral antibiotics, soak the hand in soapy water 3 times a day per Orthopedic request and follow up with Orthopedics within several days. He had very labile blood sugars including both low and high blood sugars. The patient was given his initial 70 30 and this in fact was decreased substantially with our dosing and yet in spite of eating normally he had hypoglycemia. The patient was managed over the last 24 hours with correctional only and we will resume his regular insulin regimen, which sounds like there is a lot of built-in variability, once he gets home. Status at Discharge Cognitive/behavioral status at discharge: oriented Functional status at discharge: uses cane/walker Overall status at discharge: patient is back to baseline Time Spent with Patient Time spent: Greater than 30 minutes Exam Vital Signs (past 8 hours): - 03/15/24 07:00 03/15/24 08:03 Temperature 98.1 F Pulse Rate 78 78 Respiratory Rate 20 Blood Pressure 134/67 134/67 Pulse Oximetry 95 Oxygen Flow Rate 0 Oxygen Delivery Method Nasal Cannula Oxygen Flow Rate 0 Narrative Exam Narrative: NAD, alert and oriented. Fluent speech. Lungs are clear, normal rate and effort. Heart is regular, no murmur gallop or rub. Abdomen is soft, non distended. Extremities are free of edema. Left hand is wrapped, fingers appear normal with normal range of motion, normal cap refill. Objective Imaging Hand US: Radiologist's impression: IMPRESSION: Dorsum of the left hand demonstrates a heterogeneous phlegmon measuring 2.7 x 1.2 x 1.9 cm. No discrete capsule. Labs 03/15/24 05:35 03/11/24 10:03 Labs: Laboratory Results - last 24 hr 03/15/24 05:35 WBC 5.6 RBC 4.17 L Hgb 11.9 L Hct 35.0 L MCV 83.9 MCH 28.4 MCHC 33.9 RDW 14.1 Plt Count 179 [facility] Medical History Opiate dependence Peripheral autonomic neuropathy due to diabetes mellitus Sacral back pain Diabetes, type 1.5, uncontrolled, managed as type 2 Myocardial infarct (10/17/06) Hx of drug abuse Measles (Unknown) GERD (gastroesophageal reflux disease) (Unknown) Hyperlipemia (Unknown) Obstructive sleep apnea (Unknown) Atrial fibrillation (Unknown) Hypertension (Unknown) Hepatitis C (Unknown) Peripheral vascular disease (Unknown) Carotid artery disease (Unknown) Hypothyroidism (Unknown) Erectile dysfunction (Unknown) Coronary artery disease involving coronary bypass graft of [place] heart without angina pectoris (09/11/15) Surgical History History of penile implant History of open reduction and internal fixation (ORIF) procedure (09/2010) Hx of coronary artery bypass surgery (10/2006) Hx of cataract surgery (~2004) S/P bilateral below knee amputation (Unknown) Family History Father Age: 88 Heart disease ETOH abuse Mother Age: 96 Heart disease Alzheimer's dementia without behavioral disturbance, Alzheimer's disease of unspecified onset Social History household members: spouse Smoking Status: Former smoker alcohol intake: current substance use type: does not use Discharge Assessment & Plan Assessment and Plan Assessment: 1. Left hand soft tissue infection (S/P I&D), present on admission and improved. 2. Opiate dependence, present on admission and active. 3. Diabetes mellitus 2 (labile), insulin dependent, present on admission and active. 4. HTM, present on admission and active. 5. Chronic atrial fibrillation, present on admission and active. 6. Chronic anticoagulation, present on admission and active. Plan of Treatment: Discharge home, doxycycline b.i.d. for 7 days, Dr. Pfeiffer of Orthopedics in several days for a wound check. Soapy warm water hand soaks 3 times a day, the incisional site is sutured quite loosely to allow for drainage. Discharge Plan Discharge Plan Patient Disposition: Home Provider Discharge Comment: Stable for discharge home with oral antibiotics and close follow up with Orthopedics. We will be on antibiotics for an additional week and soak hand in soapy water 3 times a day. Discharge orders & Medications Prescriptions: New doxycycline monohydrate 100 mg capsule 100 mg PO BID Qty: 14 0RF oxycodone 5 mg capsule 5 mg PO Q6H PRN (Reason: pain) Qty: 14 0RF Continued metoprolol tartrate 100 mg tablet See Rx Instructions .ROUTE .COMPLEX Qty: 180 3RF Dose Instruction: take 1 tablet by mouth twice a day Rx Instructions: 100 BID losartan 25 mg tablet 25 mg PO DAILY Qty: 90 3RF apixaban 5 mg tablet 5 mg PO BID (DME) Liners, suspension sleeves, and socks See Rx Instructions .Route .MEDSUPPLY Qty: 1 0RF Rx Instructions: As directed (DME) Syringes: 1cc Insulin Syringes with [place] 0 .Route .MEDSUPPLY Qty: 100 3RF Dose Instruction: As directed Rx Instructions: Use 1 syringe with 30x12.7 mm needle to inject insulin four times daily. (DME) OneTouch Ultra Test Strip See Rx Instructions .Route Qty: 250 5RF Rx Instructions: use one strip to test blood glucose four times daily (DME) Glucose: Test Strips See Rx Instructions .Route .MEDSUPPLY Qty: 250 6RF Dose Instruction: QID; Rx Instructions: Test blood sugar four times a day for type 2 diabetes (DME) OneTouch Ultra Test Strip See Rx Instructions .Route Qty: 100 11RF Rx Instructions: test blood sugar 4 times daily furosemide 20 mg tablet 20 mg PO QDAY Qty: 90 3RF Novolin 70/30 U-100 Insulin 100 unit/mL (70-30) suspension See Rx Instructions .ROUTE .COMPLEX Qty: 30 5RF Dose Instruction: ADMINISTER 40 UNITS UNDER THE SKIN TWICE DAILY BEFORE MEALS Patient Comments: ADMINISTER 40 UNITS UNDER THE SKIN TWICE DAILY BEFORE MEALS Rx Instructions: ADMINISTER 40 UNITS UNDER THE SKIN TWICE DAILY BEFORE MEALS rosuvastatin 20 mg tablet 20 mg PO BEDTIME Qty: 90 3RF Hold Instructions: Needs labs levothyroxine 175 mcg tablet 175 mcg PO DAILY Qty: 90 3RF tamsulosin 0.4 mg capsule 0.4 mg PO ONCE PM Qty: 90 0RF naloxone [Narcan] 4 mg/actuation spray,non-aerosol 4 mg intranasal Q2M Qty: 2 5RF Rx Instructions: spray 1 dose into ONE nostril; alternate nostrils w each dose until help arrives Bacid 1 billion cell- 250 mg Tablet 1 ea PO BID Qty: 120 0RF Medication counseling provided by Pharmacist: No Follow up/Referrals: Sobia Draper DO [Primary Care Provider] - Jordy Montoya MD [Physician] - 1 Week (Follow up in the outpatient setting with a physician clinical trial assistant at [facility] in 3-6 days to review cultures and ensure appropriate antibiotic coverage as well as perform a wound check) Discharge Health Status Multidrug resistant organism: No MDRO Diet/Activity/Treatments Diet: Carb-consistent/Diabetic Activity: As tolerated Skin/Wound/Dressing Care Report to your healthcare provider any signs of infection, such as:: chills, fever, increased pain and unusual drainage Dressing: Iodoform gauze can be removed on 03/16; does not need to be replaced. Other wound treatment: Fill a basin with warm normal saline and some chlorhexidine and soak hand for 20 minutes, 3 times per day. Visit Report/Discharge Packet Instructions: DI for Incision and Drainage of a Joint, DI for Incision and Drainage, [facility]: Wound Care Stand Alone Forms: Patient Portal/API Discharge Data Primary Care Provider: Sobia Draper VTE Deep Vein Thrombosis/Pulmonary Embolism Present on Admission: No
[2024-03-15] MEDS: ACETAMINOPHEN 325 MG TABLET 650 MG PO (11:15)
[2024-03-15 11:38] LABS: Vancomycin Trough 10.2 ug/mL (10-20)
--- NOTE | 2024-03-15 12:20 | CM.DPNOTE ---
DCP Note [employer] reviewed EMR. per hospitalist in morning multidisciplinary rounds, pt set to dc home with family today. Per RN, pt reports spouse on way to transport home. no new CM needs identified. Per previous DCP conversations/chart review, pt denies CM needs, but was just hopeful for dc home Friday (today) so there would be more support at home. Plan: home today on PO abx/new pain management meds. no barriers identified to safe dc home. CM team will continue to follow as needed. ARSENIO Vargas
--- NOTE | 2024-03-15 13:10 | PC.NURSE ---
Patient is A&OX4, VSS, afebrile on RA. He dresses himself and gets around independently with prosthetic BLE limbs. He reports pain to wrist is manageable with prn oxycodone and tylenol. Denzel wrap c/d/i. Fingers with+CMS edema +1. Bruising noted around denzel wrap. He is hyerglycemic initially in 300's. MD notified and insulin increased. Patient explains he is on a different regimen at home which he will resume. He declined the additional 15 units of lantus. He verbalizes understanding of medications, wound care, follow up with MD Montoya in 3-6 days and worsening symtpoms. He is escorted via w/ch with in private vehicle and all of his personal belongings at 1310 this afternoon.
== END 2024-03-15 13:10 | disposition home or self-care (01) | DRG 982 ==
LOC: ED 10:27 → AC 11:29
PROVIDERS: Orthopaedic Surgery Adult Reconstructive Orthopaedic Surgery; Admitting Provider Hospitalist; Emergency Provider Emergency Medicine; PCP Family Medicine; Referring Provider Emergency Medicine; Visit Provider Hospitalist
PROC: 0PDQ0ZZ Extraction of Left Metacarpal, Open Approach (ICD-10-PCS; principal; 2024-03-14 09:00)
DX: L02.512 Cutaneous abscess of left hand (principal); F11.20 Opioid dependence, uncomplicated; I48.20 Chronic atrial fibrillation, unspecified; L03.114 Cellulitis of left upper limb; I10 Essential (primary) hypertension; E11.649 Type 2 diabetes mellitus with hypoglycemia without coma; I25.10 Atherosclerotic heart disease of native coronary artery without angina pectoris; E03.9 Hypothyroidism, unspecified; E78.5 Hyperlipidemia, unspecified; Z89.511 Acquired absence of right leg below knee; Z87.891 Personal history of nicotine dependence; Z79.4 Long term (current) use of insulin; Z79.01 Long term (current) use of anticoagulants; Z89.512 Acquired absence of left leg below knee; Z95.1 Presence of aortocoronary bypass graft
CPT/HCPCS: 36415; 74018; 76882; 80048; 80202; 82962; 83036; 83690; 85025; 85027; 87040; 87070; 87075; 87077; 87205; 87797; 96365; 99284; G0378; J0171; J2405; J2704; J3010

== ENCOUNTER 2024-05-06 17:10 | Emergency (ER) | payer MEDICARE, OTHER, SELFPAY ==
[2024-03-11 11:36] VITALS: BMI 30.2
[2024-05-06 17:21] VITALS: BP 181/80; PULSE 79; RESP 16; TEMP 37; O2SAT 96
== END 2024-05-06 20:53 | disposition left against medical advice (07) ==
PROVIDERS: Emergency Provider Emergency Medicine; PCP Family Medicine
CPT/HCPCS: 99281

== ENCOUNTER 2024-05-07 20:08 | Emergency (ER) | payer MEDICARE, OTHER, SELFPAY ==
[2024-03-11 11:36] VITALS: BMI 30.2
[2024-05-07 20:40] VITALS: BP 199/93; PULSE 87; RESP 18; TEMP 36.5; O2SAT 96
[2024-05-07 21:55] LABS: Add Manual Diff / Slide Review NO; Basophils Absolute Auto 100 /uL (0-100); Basophils Percent Auto 0.7 % (0-2); Eosinophils Absolute Auto 200 /uL (0-450); Eosinophils Percent Auto 2.2 % (2-4); Hematocrit 37.5 % (41-53); Hemoglobin 12.7 g/dL (13.5-17.5); Lymphocytes Absolute Auto 1400 /uL (1100-4500); Lymphocytes Percent Auto 19.6 % (25-40); Mean Corpuscular HGB Conc 33.8 % (30-36); Mean Corpuscular Hemoglobin 28.2 PG (26-34); Mean Corpuscular Volume 83.6 fL (80-100); Monocytes Absolute Auto 500 /uL (0-900); Monocytes Percent Auto 7.4 % (3-14); Neutrophils Absolute Auto 5100 /uL (1500-7000); Neutrophils Percent Auto 70.1 % (50-75); Red Blood Cell Count 4.49 X10^6/uL (4.5-5.9); Red Cell Distribution Width 13.8 % (11.6-14.8); White Blood Cell Count 7.3 X10^3/uL (4.5-11.0)
[2024-05-07 21:57] LABS: Alanine Aminotransferase 17 IU/L (<50); Albumin Globulin Ratio 1.4 (1.0-2.8); Alkaline Phosphatase 111 U/L (38-126); Aspartate Aminotransferase 26 IU/L (17-59); BUN Creatinine Ratio 24.1 (6-22); Bilirubin Total 0.9 mg/dL (0.2-1.3); Blood Urea Nitrogen 21 mg/dL (9-20); Calcium 8.9 mg/dL (8.4-10.2); Carbon Dioxide 27 mmol/L (22-32); Chloride 107 mmol/L (98-107); Estimated Glomerular Filt Rate > 60 mL/min (>60); Globulin 2.9 g/dL (1.7-4.1); Glucose 172 mg/dL (80-110); HEMOLYSIS < 15 (0-50); Potassium 4.2 mmol/L (3.4-5.1); Sodium 139 mmol/L (137-145); Total Protein 6.9 g/dL (6.3-8.2)
--- NOTE | 2024-05-08 00:11 | ED_ITS ---
HPI - Skin/Abscess/Foreign Bdy General Chief complaint: Skin/Abscess/Foreign Body Stated complaint: LT ARM INFECTION Time Seen by Provider: 05/08/24 00:08 Source: patient Mode of arrival: Ambulatory Limitations: no limitations History of Present Illness HPI narrative: 70-year-old male, history of insulin-dependent diabetes, anticoagulated on apixaban for atrial fibrillation. Some history of opiate use in injection. Patient states last injection was around March 22. He states he did not inject into the area of abscess in his left inner elbow. He states he did have a recent surgery has a beginning of March with drainage of abscess in the OR of his hand left hand. He states that has healed fully. Denies fevers, denies any other infectious symptoms. States he has had increasing swelling redness and discomfort in the inner crease in his elbow. He states he had a little bit of purulent drainage earlier today. Denies any numbness tingling or weakness. Denies any chest pain or shortness of breath no nausea or vomiting no other GI or urinary symptoms. Patient has not been on any antibiotics since early March. Patient states he has had multiple abscesses infected typically from injection drug use. Patient states allergies to cephalexin and doxycycline. Related Data Home Medications Medication Instructions Recorded Confirmed apixaban 5 mg tablet 5 mg PO BID 08/22/21 03/11/24 Previous Rx's Medication Instructions Recorded metoprolol tartrate 100 mg tablet See Rx Instructions .Route 10/16/20 .COMPLEX #180 tabs losartan 25 mg tablet 25 mg PO DAILY #90 tabs 10/20/20 Liners, suspension sleeves, and #1 ea 09/11/21 socks L.acidophilus-L.bulgar-B.bifid-S.thermoph 1 ea PO BID #120 tabs 11/05/21 1 billion cell-250 mg tablet (Bacid) Syringes: 1cc Insulin Syringes #100 ea 11/19/22 with Jeannette blood sugar diagnostic (OneTouch #250 ea 10/24/23 Ultra Test strips) Glucose: Test Strips #250 ea 11/12/23 blood sugar diagnostic (OneTouch #100 ea 12/05/23 Ultra Test strips) furosemide 20 mg tablet 20 mg PO QDAY #90 tabs 12/22/23 insulin human U-100 NPH-regulr See Rx Instructions .Route 12/22/23 70-30 mix 100 unit/mL subcutaneous .COMPLEX #30 mL susp (Novolin 70/30 U-100 Insulin) levothyroxine 175 mcg tablet 175 mcg PO DAILY #90 tabs 12/22/23 rosuvastatin 20 mg tablet 20 mg PO BEDTIME #90 tabs 12/22/23 naloxone 4 mg/actuation nasal 4 mg intranasal Q2M #2 ea 02/09/24 spray (Narcan) doxycycline monohydrate 100 mg 100 mg PO BID #14 caps 03/14/24 capsule oxycodone 5 mg capsule 5 mg PO Q6H PRN pain #14 caps 03/15/24 tamsulosin 0.4 mg capsule 0.4 mg PO QPM #90 caps 04/19/24 clindamycin HCl 300 mg capsule 300 mg PO Q6H 10 days #40 caps 05/08/24 (Cleocin HCl) Allergies Allergy/AdvReac Type Severity Reaction Status Date / Time cephalexin Allergy Severe Blister Verified 05/06/24 17:25 Cephalosporins Allergy Blister Verified 05/06/24 17:25 adhesive tape [ADHESIVE TAPE] AdvReac Mild PATIENT Verified 05/06/24 17:25 STATES IT PEELS HIS SKIN OFF lisinopril [LISINOPRIL] AdvReac Mild COUGH Verified 05/06/24 17:25 prochlorperazine AdvReac Unknown Verified 05/06/24 17:25 [PROCHLORPERAZINE] shellfish derived AdvReac Unknown Verified 05/06/24 17:25 [SHELLFISH DERIVED] Review of Systems Review of Systems ROS Unobtainable: All systems reviewed & are unremarkable except as noted in HPI and below Patient History Medical History Opiate dependence Peripheral autonomic neuropathy due to diabetes mellitus Sacral back pain Diabetes, type 1.5, uncontrolled, managed as type 2 Myocardial infarct (10/17/06) Hx of drug abuse Measles (Unknown) GERD (gastroesophageal reflux disease) (Unknown) Hyperlipemia (Unknown) Obstructive sleep apnea (Unknown) Atrial fibrillation (Unknown) Hypertension (Unknown) Hepatitis C (Unknown) Peripheral vascular disease (Unknown) Carotid artery disease (Unknown) Hypothyroidism (Unknown) Erectile dysfunction (Unknown) Coronary artery disease involving coronary bypass graft of [place] heart without angina pectoris (09/11/15) Surgical History History of penile implant History of open reduction and internal fixation (ORIF) procedure (09/2010) Hx of coronary artery bypass surgery (10/2006) Hx of cataract surgery (~2004) S/P bilateral below knee amputation (Unknown) Family History Father Age: 88 Heart disease ETOH abuse Mother Age: 96 Heart disease Alzheimer's dementia without behavioral disturbance, Alzheimer's disease of unspecified onset Social History household members: spouse Smoking Status: Former smoker alcohol intake: current substance use type: does not use Smoking Status: Former smoker alcohol intake frequency: holidays/special occasions only Substance Use Type: former substance user, marijuana, opiates and IV drugs Exam Narrative Exam Narrative: GENERAL: Alert and oriented x three, male in mild distress. HEENT: Head normocephalic, atraumatic, EOMI, pupils reactive, face symmetric, moist mucous membranes NECK: Supple, full range of motion CARDIOVASCULAR: Regular rate and rhythm without murmurs, rubs or gallops. RESPIRATORY: Breath sounds equal bilaterally, no wheezes rales or rhonchi. ABDOMEN: Soft, nontender. Normoactive bowel sounds all 4 quadrants. No guarding or rebound, rigidity, no mass : No CVA tenderness EXTREMITIES: Normal range of motion, no clubbing or edema. Neurovascularly intact. Patient swelling that is quite indurated with breakdown of the very initial layer of skin, no drainage and no clear fluctuance on palpation. This is in the inner elbow. Over the antecubital fossa. Has a proximally she 4-1/2 cm of induration by 5 cm of induration. 2+ radial pulse. Full range of motion. No tenderness of the elbow no swelling of the posterior elbow. Patient has normal range of motion and sensation throughout the arm. No cellulitis extending in either direction. NEUROLOGICAL: Cranial nerves II through XII grossly intact. Moving all extremities SKIN: Warm, dry, no petechiae, no rashes or lesions other than above. Patient does have multiple healed incisions. Initial Vital Signs Initial Vital Signs: Vital Signs Temperature 97.7 F 05/07/24 20:40 Pulse Rate 87 05/07/24 20:40 Respiratory Rate 18 05/07/24 20:40 Blood Pressure 199/93 H 05/07/24 20:40 Pulse Oximetry 96 05/07/24 20:40 Oxygen Delivery Method Room Air 05/07/24 20:40 Procedures Abscess I/D I&D #1: Site: upper extremity (Antecubital fossa) Side (if applicable): left Sedation/analgesia: none Local Anesthetic: lidocaine 2% Amount of anesthesia used (mL): 5 Technique: needle aspiration and incised with #11 blade Amount of fluid expressed (mL): 12 Irrigation: Yes Packing used?: none Course Orders Ordered: ED Orders 05/07/24 21:34 CMP [Comprehensive Metabolic Panel] Stat Complete Blood Count AUTO DIFF Stat 05/08/24 00:17 US extremity nonvasc upper lt Stat Discontinued Medications Clindamycin HCl (Clindamycin 150 Mg Capsule) 300 mg PO NOW ONE Stop: 05/08/24 00:38 Last Admin: 05/08/24 00:42 Dose: 300 mg Documented By: ELENITA Doxycycline Hyclate (Doxycycline Hyclate 100 Mg Tablet) 100 mg PO NOW ONE Stop: 05/08/24 00:18 Last Admin: 05/08/24 00:45 Dose: Not Given Documented By: ELENITA Ketorolac Tromethamine (Ketorolac 30 Mg/Ml Vial) 30 mg IM NOW ONE Stop: 05/08/24 00:18 Last Admin: 05/08/24 00:24 Dose: 30 mg Documented By: ELENITA Vital Signs Vital signs: Vital Signs - 8 hr 05/08/24 02:50 Pulse Rate 82 Respiratory Rate 17 Blood Pressure 175/74 H Pulse Oximetry 94 Oxygen Delivery Method Room Air MDM - Skin/Abscess/Foreign Bdy Lab Data 05/07/24 21:34 05/07/24 21:34 Labs: Lab Results 05/07/24 Range/Units 21:34 WBC 7.3 (4.5-11.0) X10^3/uL RBC 4.49 L (4.5-5.9) X10^6/uL Hgb 12.7 L (13.5-17.5) g/dL Hct 37.5 L (41-53) % MCV 83.6 (80-100) fL MCH 28.2 (26-34) PG MCHC 33.8 (30-36) % RDW 13.8 (11.6-14.8) % Plt Count TNP Neut % (Auto) 70.1 (50-75) % Lymph % (Auto) 19.6 L (25-40) % [place] % (Auto) 7.4 (3-14) % Eos % (Auto) 2.2 (2-4) % Baso % (Auto) 0.7 (0-2) % Neut # (Auto) 5100 (4167-7512) /uL Lymph # (Auto) 1400 (1335-1551) /uL [place] # (Auto) 500 (0-900) /uL Eos # (Auto) 200 (0-450) /uL Baso # (Auto) 100 (0-100) /uL Sodium 139 (137-145) mmol/L Potassium 4.2 (3.4-5.1) mmol/L Chloride 107 (98-107) mmol/L Carbon Dioxide 27 (22-32) mmol/L BUN 21 H (9-20) mg/dL Creatinine 0.87 (0.66-1.25) mg/dL Estimated GFR > 60 (>60) mL/min BUN/Creatinine Ratio 24.1 H (6-22) Glucose 172 H (80-110) mg/dL Calcium 8.9 (8.4-10.2) mg/dL Total Bilirubin 0.9 (0.2-1.3) mg/dL AST 26 (17-59) IU/L ALT 17 (<50) IU/L Alkaline Phosphatase 111 (38-126) U/L Total Protein 6.9 (6.3-8.2) g/dL Albumin 4.0 (3.5-5.0) g/dL Globulin 2.9 (1.7-4.1) g/dL Albumin/Globulin Ratio 1.4 (1.0-2.8) Imaging Data us soft tissue: Radiologist's Impression: [address] [address] Ultrasound Report Signed Patient: Tulio Yi MR#: [id number] : 1945 Acct:[id number] Age/Sex: 78 / M Date of Service: 05/08/24 Loc: ED Accession Number: [id number] Procedure: US extremity nonvasc upper lt Ordering Provider: Malathi Fraser D.O. PROCEDURE: US EXTREMITY NONVASC UPPER LT INDICATIONS: abcess vs induration at left elbow, r/o vascular involvement TECHNIQUE: Real-time scanning was performed of the left antecubital fossa , with image documentation. COMPARISON: [facility], , US EXTREMITY NONVASC UPPER LT, 03/12/2024, 8:43. FINDINGS: Grayscale and color Doppler images of the left anterior cubital fossa demonstrates a heterogeneous fluid collection with peripheral vascularity/hyperemia measuring 2.5 x 1.8 x 2.5 cm. This is noted approximately 4 mm deep to the skin surface. There there is a small vascular structure traversing adjacent to this collection. IMPRESSION: 2.5 heterogeneous fluid collection in the left antecubital fossa compatible with a small abscess. Dictated by: Paulino Murphy M.D. on 05/08/2024 at 1:28 Approved by: Paulino Murphy M.D. on 05/08/2024 at 1:32 MDM Narrative Medical decision making narrative: 70-year-old male history of abscesses, history of injection drug use. Patient states had not injected in that area. He has appears to be an abscess but is over the antecubital fossa so formal ultrasound was obtained to rule out any vascular involvement. None was appreciated patient had I&D here in the department. Labs are overall appropriate. Patient tolerated procedure well had quite a bit of purulent fluid out. Was started on clindamycin. Return precautions were discussed. Did discuss with patient based on the location of his abscess if it were to reoccur or grow larger he is high-risk to have vascular involvement and potentially require transfer for vascular surgeon to clean out. Discussed she should have a low threshold to return if not improving or if it is worsening in any way. Discharge Plan Departure Patient Disposition: Home Clinical Impression: Abscess of left elbow Instructions: DI for Incision and Drainage of a Skin Abscess Activity Restrictions/Additional Instructions: Please follow up in the next several days if you are not having significant improvement or resolution of your abscess. Your abscess is over an area that has a large blood vessel running, if it continues to grow larger it can involve that area and cause significant complications. If if they infection is not resolving or worsening it does need to be re-evaluated. Take oral antibiotics until completed. Prescription was sent to [facility], [place] Wound Care: Keep wound(s) clean and dry. Wash daily with soap and water only. Use warm soaks or warm compresses 4 times daily to the affected area. Do not use over the counter products (alcohol or peroxide)on the wounds unless instructed by a physician, may use a topical triple antibiotic ointment to the affected area. If wound condition worsens (increased/expanding redness, developing fluid blisters, or worsening pain), either contact your doctor for an urgent re- assessment , or return to the Emergency Department. Return if fever greater than 100.4 Fahrenheit, increased swelling, increasing pain or worsening symptoms such as increased discharge or spreading redness. Prescriptions: New clindamycin HCl [Cleocin HCl] 300 mg capsule 300 mg PO Q6H 10 Days Qty: 40 0RF No Action metoprolol tartrate 100 mg tablet See Rx Instructions .ROUTE .COMPLEX Qty: 180 3RF Dose Instruction: take 1 tablet by mouth twice a day Rx Instructions: 100 BID losartan 25 mg tablet 25 mg PO DAILY Qty: 90 3RF apixaban 5 mg tablet 5 mg PO BID (DME) Liners, suspension sleeves, and socks See Rx Instructions .Route .MEDSUPPLY Qty: 1 0RF Rx Instructions: As directed (DME) Syringes: 1cc Insulin Syringes with Jeannette 0 .Route .MEDSUPPLY Qty: 100 3RF Dose Instruction: As directed Rx Instructions: Use 1 syringe with 30x12.7 mm needle to inject insulin four times daily. (DME) OneTouch Ultra Test Strip See Rx Instructions .Route Qty: 250 5RF Rx Instructions: use one strip to test blood glucose four times daily (DME) Glucose: Test Strips See Rx Instructions .Route .MEDSUPPLY Qty: 250 6RF Dose Instruction: QID; Rx Instructions: Test blood sugar four times a day for type 2 diabetes (DME) OneTouch Ultra Test Strip See Rx Instructions .Route Qty: 100 11RF Rx Instructions: test blood sugar 4 times daily furosemide 20 mg tablet 20 mg PO QDAY Qty: 90 3RF Novolin 70/30 U-100 Insulin 100 unit/mL (70-30) suspension See Rx Instructions .ROUTE .COMPLEX Qty: 30 5RF Dose Instruction: ADMINISTER 40 UNITS UNDER THE SKIN TWICE DAILY BEFORE MEALS Patient Comments: ADMINISTER 40 UNITS UNDER THE SKIN TWICE DAILY BEFORE MEALS Rx Instructions: ADMINISTER 40 UNITS UNDER THE SKIN TWICE DAILY BEFORE MEALS rosuvastatin 20 mg tablet 20 mg PO BEDTIME Qty: 90 3RF Hold Instructions: Needs labs levothyroxine 175 mcg tablet 175 mcg PO DAILY Qty: 90 3RF tamsulosin 0.4 mg capsule 0.4 mg PO QPM Qty: 90 0RF naloxone [Narcan] 4 mg/actuation spray,non-aerosol 4 mg intranasal Q2M Qty: 2 5RF Rx Instructions: spray 1 dose into ONE nostril; alternate nostrils w each dose until help arrives doxycycline monohydrate 100 mg capsule 100 mg PO BID Qty: 14 0RF oxycodone 5 mg capsule 5 mg PO Q6H PRN (Reason: pain) Qty: 14 0RF Bacid 1 billion cell- 250 mg Tablet 1 ea PO BID Qty: 120 0RF Referrals: Sobia Draper DO [Primary Care Provider] - Stand Alone Forms: Patient Portal/API
--- NOTE | 2024-05-08 00:17 | DI.US.S_ITS ---
PROCEDURE: US EXTREMITY NONVASC UPPER LT INDICATIONS: abcess vs induration at left elbow, r/o vascular involvement TECHNIQUE: Real-time scanning was performed of the left antecubital fossa , with image documentation. COMPARISON: [facility], , US EXTREMITY NONVASC UPPER LT, 03/12/2024, 8:43. FINDINGS: Grayscale and color Doppler images of the left anterior cubital fossa demonstrates a heterogeneous fluid collection with peripheral vascularity/hyperemia measuring 2.5 x 1.8 x 2.5 cm. This is noted approximately 4 mm deep to the skin surface. There there is a small vascular structure traversing adjacent to this collection. IMPRESSION: 2.5 heterogeneous fluid collection in the left antecubital fossa compatible with a small abscess. Dictated by: Paulino Murphy M.D. on 05/08/2024 at 1:28 Approved by: Paulino Murphy M.D. on 05/08/2024 at 1:32
[2024-05-08] MEDS: KETOROLAC 30 MG/ML VIAL IM (00:24)
[2024-05-08] MEDS: CLINDAMYCIN 150 MG CAPSULE 300 MG PO (00:42)
[2024-05-08 02:50] VITALS: BP 175/74; PULSE 82; RESP 17; O2SAT 94
== END 2024-05-08 02:51 | disposition home or self-care (01) ==
PROVIDERS: Emergency Provider Emergency Medicine; PCP Family Medicine
DX: L02.414 Cutaneous abscess of left upper limb (principal)
CPT/HCPCS: 10060; 76882; 80053; 85025; 99283; J1885

== ENCOUNTER → 2024-05-17 13:37 | Outpatient (CLI) | payer MEDICARE, OTHER, SELFPAY ==
[2024-03-11 11:36] VITALS: BMI 30.2
[2024-05-17 14:14] LABS: Hemoglobin A1C% w Est Avg Glu 8.1 % (4.0-6.0)
[2024-05-17 14:28] LABS: BUN Creatinine Ratio 30.3 (6-22); Blood Urea Nitrogen 20 mg/dL (9-20); Calcium 9.4 mg/dL (8.4-10.2); Carbon Dioxide 27 mmol/L (22-32); Chloride 107 mmol/L (98-107); Estimated Glomerular Filt Rate > 60 mL/min (>60); Glucose 167 mg/dL (80-110); HEMOLYSIS < 15 (0-50); Potassium 4.4 mmol/L (3.4-5.1); Sodium 141 mmol/L (137-145)
== END ==
LOC: LAB 13:38
PROVIDERS: PCP Family Medicine; Referring Provider Family Medicine; Visit Provider Family Medicine
DX: E13.65 Other specified diabetes mellitus with hyperglycemia (principal); I48.91 Unspecified atrial fibrillation
CPT/HCPCS: 36415; 80048; 83036

== ENCOUNTER 2024-09-12 10:26 | Emergency (ER) | payer MEDICARE, OTHER, SELFPAY ==
[2024-03-11 11:36] VITALS: BMI 30.2
[2024-09-12 10:35] VITALS: BP 165/71; PULSE 61; RESP 18; TEMP 36.6; O2SAT 96; BMI 45.9
[2024-09-12 10:36] VITALS: PULSE 62; O2SAT 98
[2024-09-12 10:38] VITALS: BP 165/71
[2024-09-12 10:57] VITALS: BP 135/60
[2024-09-12 11:00] VITALS: BP 127/61; PULSE 65; RESP 17; O2SAT 95
--- NOTE | 2024-09-12 11:10 | PC.NURSE ---
bilateral LE amputations
--- NOTE | 2024-09-12 11:18 | ED_ITS ---
HPI - General Adult General Chief complaint: Syncope Stated complaint: Hypoglycemia, Hernia Time Seen by Provider: 09/12/24 11:17 Source: patient and EMS Mode of arrival: EMS History of Present Illness HPI narrative: 70-year-old gentleman with diabetes managed with insulin, coronary artery disease post CABG, hyperlipidemia, history of hepatitis-C, that is it his right inguinal hernia has been bothering him more recently. It is able to be reduced but he complains that it is causing him to have some rectal leakage. He has not been seen by a surgeon for this. States he has otherwise been in his usual state of health with no other new findings, anything to suggest infection, cardiac abnormalities, bowel obstruction or acute neurologic symptoms. Related Data Home Medications Medication Instructions Recorded Confirmed apixaban 5 mg tablet 5 mg PO BID 08/22/21 08/16/24 duloxetine 20 mg capsule,delayed 20 mg PO DAILY 08/16/24 release (Cymbalta) Previous Rx's Medication Instructions Recorded metoprolol tartrate 100 mg tablet See Rx Instructions .Route 10/16/20 .COMPLEX #180 tabs losartan 25 mg tablet 25 mg PO DAILY #90 tabs 10/20/20 Liners, suspension sleeves, and #1 ea 09/11/21 socks Syringes: 1cc Insulin Syringes #100 ea 11/19/22 with [place] blood sugar diagnostic (OneTouch #250 ea 10/24/23 Ultra Test strips) Glucose: Test Strips #250 ea 11/12/23 blood sugar diagnostic (OneTouch #100 ea 12/05/23 Ultra Test strips) furosemide 20 mg tablet 20 mg PO QDAY #90 tabs 12/22/23 levothyroxine 175 mcg tablet 175 mcg PO DAILY #90 tabs 12/22/23 rosuvastatin 20 mg tablet 20 mg PO BEDTIME #90 tabs 12/22/23 naloxone 4 mg/actuation nasal 4 mg intranasal Q2M #2 ea 02/09/24 spray (Narcan) doxycycline monohydrate 100 mg 100 mg PO BID #14 caps 03/14/24 capsule tamsulosin 0.4 mg capsule 0.4 mg PO QPM #90 caps 04/19/24 pregabalin 25 mg capsule (Lyrica) 25 mg PO BID #60 caps 05/17/24 insulin NPH-regular 70-30 U-100 40 unit (0.4 mL) SUBCUT BID #30 mL 07/14/24 insulin 100 unit/mL subcutaneous pen (Humulin 70/30 U-100 KwikPen) Allergies Allergy/AdvReac Type Severity Reaction Status Date / Time cephalexin Allergy Severe Blister Verified 08/16/24 13:18 Cephalosporins Allergy Blister Verified 08/16/24 13:18 adhesive tape [ADHESIVE TAPE] AdvReac Mild PATIENT Verified 08/16/24 13:18 STATES IT PEELS HIS SKIN OFF lisinopril [LISINOPRIL] AdvReac Mild COUGH Verified 08/16/24 13:18 prochlorperazine AdvReac Unknown Verified 08/16/24 13:18 [PROCHLORPERAZINE] shellfish derived AdvReac Unknown Verified 08/16/24 13:18 [SHELLFISH DERIVED] Review of Systems Review of Systems Narrative: Pertinent positive and negative findings as per HPI Patient History Medical History (Updated 09/12/24 @ 11:30 by Caroline Plunkett MD) Opiate dependence Peripheral autonomic neuropathy due to diabetes mellitus Sacral back pain Diabetes, type 1.5, uncontrolled, managed as type 2 Myocardial infarct (10/17/06) Hx of drug abuse Measles (Unknown) GERD (gastroesophageal reflux disease) (Unknown) Hyperlipemia (Unknown) Obstructive sleep apnea (Unknown) Atrial fibrillation (Unknown) Hypertension (Unknown) Hepatitis C (Unknown) Peripheral vascular disease (Unknown) Carotid artery disease (Unknown) Hypothyroidism (Unknown) Erectile dysfunction (Unknown) Coronary artery disease involving coronary bypass graft of [place] heart without angina pectoris (09/11/15) Surgical History (Updated 06/09/24 @ 11:19 by Sobia Draper DO) S/P bilateral BKA (below knee amputation) History of penile implant History of open reduction and internal fixation (ORIF) procedure (09/2010) Hx of coronary artery bypass surgery (10/2006) Hx of cataract surgery (~2004) S/P bilateral below knee amputation (Unknown) Family History Father Age: 89 Heart disease ETOH abuse Mother Age: 97 Heart disease Alzheimer's dementia without behavioral disturbance, Alzheimer's disease of unspecified onset Social History household members: spouse Smoking Status: Former smoker alcohol intake: current substance use type: does not use Smoking Status: Former smoker alcohol intake frequency: holidays/special occasions only Substance Use Type: former substance user, marijuana, opiates and IV drugs Exam Initial Vital Signs Initial Vital Signs: Vital Signs Temperature 97.8 F 09/12/24 10:35 Pulse Rate 61 09/12/24 10:35 Respiratory Rate 18 09/12/24 10:35 Blood Pressure 165/71 H 09/12/24 10:35 Pulse Oximetry 96 09/12/24 10:35 Oxygen Delivery Method Room Air 09/12/24 10:35 General: Healthy appearing, in no acute distress. Able to give a complete and coherent history. Well-nourished well-developed HEENT: Moist mucous membranes, normal sclera with reactive pupils, Respiratory: Lungs are clear to auscultation, no wheezing no rales no rhonchi. Full and symmetrical air movement Cardiac: Regular rate and rhythm no murmurs no bruits Abdomen: Soft, nontender, good bowel tones, no flank pain Skin: Warm and dry, no rashes Neurologic: Grossly neurologically intact with no obvious asymmetries or abnormalities Extremities: All track umanzor, well-perfused, no lower extremity edema Psych: Cooperative, appropriate insight and affect Course Vital Signs Vital signs: Vital Signs - 8 hr 09/12/24 10:35 09/12/24 10:36 09/12/24 10:38 Temperature 97.8 F Pulse Rate 61 62 Respiratory Rate 18 Blood Pressure 165/71 H 165/71 H Pulse Oximetry 96 98 Oxygen Delivery Method Room Air 09/12/24 10:57 09/12/24 11:00 09/12/24 11:00 Temperature Pulse Rate 65 Respiratory Rate 17 Blood Pressure 135/60 127/61 Pulse Oximetry 95 Oxygen Delivery Method Medical Decision Making Lab Data Labs: Point of Care Testing Glucose POC 126 Point of care testing: Point of Care Testing Glucose POC 126 MDM Narrative Medical decision making narrative: CC: Hypoglycemia at 42, feeling weak Complicating co-morbidities: Insulin use for type 2 diabetes, history of IV drug use, post CABG, chronic atrial fibrillation, chronic pain Data collected from: patient Medical records reviewed: Primary care notes from August 16 are reviewed Differential considered: Simple hypoglycemia secondary to insulin absorption, acute coronary syndrome, infection/sepsis Exam documented above, pertinent findings include: Exam is in entirely benign Lab Test results independently reviewed as above. Pertinent findings: Blood sugars measured at home, by medics prior to arrival in the ER, after triage in the ER and prior to discharge: 46 - 03- 126-180 Discussion: 78-year-old gentleman with a history of type 2 diabetes, took his usual insulin this morning was feeling somewhat weak called medics blood sugar was at 46. He had additional food including complex carbohydrates and proteins. He is feeling significantly better blood sugars continue to increase. With shared decision-making we opted to not proceed with any additional medical workup as he has no other complaints this time. He will follow up with his primary care physician Discharge Plan Departure Patient Disposition: Home Clinical Impression: Hypoglycemia, Hypoglycemia due to insulin Instructions: DI for Hypoglycemia Activity Restrictions/Additional Instructions: Thank you for coming in today I am glad you called the medics when you are feeling unwell this morning. It does appear to be related to your blood sugar. You have eaten appropriately. Your blood sugar appears to be responding appropriately and increasing. As you were otherwise feeling well and your blood sugar is responding to the food you eaten, we have chosen to not do any additional workup today. I would recommend that you recheck your blood sugar late afternoon, before bed and if you have any recurrent episodes of feeling dizzy or weak Your complaining about your right inguinal hernia. You can contact your primary care physician to discuss this further you can also consider calling [facility] at [phone] to meet with 1 of the surgeons to discuss repair of your easily reducible right inguinal hernia. If you find that you are getting worse or develop any new symptoms, please feel free to return to the emergency department for further evaluation. Prescriptions: No Action metoprolol tartrate 100 mg tablet See Rx Instructions .ROUTE .COMPLEX Qty: 180 3RF Dose Instruction: take 1 tablet by mouth twice a day Rx Instructions: 100 BID losartan 25 mg tablet 25 mg PO DAILY Qty: 90 3RF apixaban 5 mg tablet 5 mg PO BID (DME) Liners, suspension sleeves, and socks See Rx Instructions .Route .MEDSUPPLY Qty: 1 0RF Rx Instructions: As directed (DME) Syringes: 1cc Insulin Syringes with [place] 0 .Route .MEDSUPPLY Qty: 100 3RF Dose Instruction: As directed Rx Instructions: Use 1 syringe with 30x12.7 mm needle to inject insulin four times daily. (DME) OneTouch Ultra Test Strip See Rx Instructions .Route Qty: 250 5RF Rx Instructions: use one strip to test blood glucose four times daily (DME) Glucose: Test Strips See Rx Instructions .Route .MEDSUPPLY Qty: 250 6RF Dose Instruction: QID; Rx Instructions: Test blood sugar four times a day for type 2 diabetes (DME) OneTouch Ultra Test Strip See Rx Instructions .Route Qty: 100 11RF Rx Instructions: test blood sugar 4 times daily furosemide 20 mg tablet 20 mg PO QDAY Qty: 90 3RF rosuvastatin 20 mg tablet 20 mg PO BEDTIME Qty: 90 3RF Hold Instructions: Needs labs levothyroxine 175 mcg tablet 175 mcg PO DAILY Qty: 90 3RF tamsulosin 0.4 mg capsule 0.4 mg PO QPM Qty: 90 0RF Humulin 70/30 U-100 KwikPen 100 unit/mL (70-30) insulin pen 40 unit SUBCUT BID Qty: 30 11RF Rx Instructions: ADMINISTER 40 UNITS UNDER THE SKIN TWICE DAILY BEFORE MEALS naloxone [Narcan] 4 mg/actuation spray,non-aerosol 4 mg intranasal Q2M Qty: 2 5RF Rx Instructions: spray 1 dose into ONE nostril; alternate nostrils w each dose until help arrives duloxetine [Cymbalta] 20 mg capsule,delayed release(DR/EC) 20 mg PO DAILY pregabalin [Lyrica] 25 mg capsule 25 mg PO BID Qty: 60 5RF doxycycline monohydrate 100 mg capsule 100 mg PO BID Qty: 14 0RF Referrals: Sobia Draper DO [Primary Care Provider] - Stand Alone Forms: Patient Portal/API
[2024-09-12 11:30] VITALS: BP 131/58; PULSE 64; RESP 17; O2SAT 94
== END 2024-09-12 12:03 | disposition home or self-care (01) ==
PROVIDERS: Emergency Provider Emergency Medicine; PCP Family Medicine
DX: E11.649 Type 2 diabetes mellitus with hypoglycemia without coma (principal); Z79.4 Long term (current) use of insulin; Z79.01 Long term (current) use of anticoagulants; K40.90 Unilateral inguinal hernia, without obstruction or gangrene, not specified as recurrent
CPT/HCPCS: 36415; 82962; 99283

== ENCOUNTER 2024-11-09 13:20 | Emergency (ER) | payer MEDICARE, OTHER, SELFPAY ==
[2024-03-11 11:36] VITALS: BMI 30.2
[2024-11-09 13:28] VITALS: BP 146/99; PULSE 65; RESP 18; TEMP 36.4; O2SAT 96; BMI 42.0
--- NOTE | 2024-11-09 13:38 | DI.RAD.S_ITS ---
PROCEDURE: XR CHEST 2V INDICATIONS: cough x 13 days TECHNIQUE: 2 views of the chest were acquired. COMPARISON: [facility], , XR CHEST 2V, 10/10/2022, 20:38. FINDINGS: Surgical changes and devices: Median sternotomy wires are seen. Lungs and pleura: Lungs are clear. No pleural effusions or pneumothorax. Mediastinum: Mediastinal contours are normal. Heart size is normal. Bones and chest wall: No suspicious bony abnormalities. Soft tissues appear unremarkable. IMPRESSION: No acute cardiopulmonary pathology. Dictated by: Yadiel Alarcon M.D. on 11/09/2024 at 14:00 Approved by: Yadiel Alarcon M.D. on 11/09/2024 at 14:01
--- NOTE | 2024-11-09 14:43 | ED_ITS ---
HPI - URI/Sore Throat <Caitlin Felder PA-C - Last Filed: 11/09/24 16:30> General Chief Complaint: Upper Respiratory Symptoms Stated Complaint: back px, coughing Time Seen by Provider: 11/09/24 13:44 Source: patient Mode of arrival: Ambulatory History of Present Illness HPI Narrative: Mr. Yi is a very pleasant 78-year-old male with a past medical history of type 1.5 diabetes on insulin, bilateral lower extremity amputations, CAD s/p CABG, HTN, HLD, AFib on Eliquis who presents to the emergency department for cough times 13 days. Patient states he occasionally has some pain on both sides of his upper back which caused him and his to be concerned that he may have pneumonia. Reports cough has been productive with clear mucus. States that about 2 weeks ago he had 1 episode of vomiting however he no longer has any nausea, vomiting and has no abdominal pain or diarrhea. No sore throat. Occasionally feels slightly short of breath from coughing. No chest pain. No fevers. Denies smoking. Related Data Home Medications Medication Instructions Recorded Confirmed apixaban 5 mg tablet 5 mg PO BID 08/22/21 08/16/24 duloxetine 20 mg capsule,delayed 20 mg PO DAILY 08/16/24 release (Cymbalta) Previous Rx's Medication Instructions Recorded metoprolol tartrate 100 mg tablet See Rx Instructions .Route 10/16/20 .COMPLEX #180 tabs Liners, suspension sleeves, and #1 ea 09/11/21 socks Syringes: 1cc Insulin Syringes #100 ea 11/19/22 with [place] blood sugar diagnostic (OneTouch #250 ea 10/24/23 Ultra Test strips) Glucose: Test Strips #250 ea 11/12/23 blood sugar diagnostic (OneTouch #100 ea 12/05/23 Ultra Test strips) furosemide 20 mg tablet 20 mg PO QDAY #90 tabs 12/22/23 levothyroxine 175 mcg tablet 175 mcg PO DAILY #90 tabs 12/22/23 rosuvastatin 20 mg tablet 20 mg PO BEDTIME #90 tabs 12/22/23 naloxone 4 mg/actuation nasal 4 mg intranasal Q2M #2 ea 02/09/24 spray (Narcan) doxycycline monohydrate 100 mg 100 mg PO BID #14 caps 03/14/24 capsule pregabalin 25 mg capsule (Lyrica) 25 mg PO BID #60 caps 05/17/24 insulin NPH-regular 70-30 U-100 40 unit (0.4 mL) SUBCUT BID #30 mL 07/14/24 insulin 100 unit/mL subcutaneous pen (Humulin 70/30 U-100 KwikPen) losartan 25 mg tablet 25 mg PO DAILY #90 tabs 09/13/24 tamsulosin 0.4 mg capsule 0.4 mg PO QPM #90 caps 09/20/24 Allergies Allergy/AdvReac Type Severity Reaction Status Date / Time cephalexin Allergy Severe Blister Verified 08/16/24 13:18 Cephalosporins Allergy Blister Verified 08/16/24 13:18 adhesive tape [ADHESIVE TAPE] AdvReac Mild PATIENT Verified 08/16/24 13:18 STATES IT PEELS HIS SKIN OFF lisinopril [LISINOPRIL] AdvReac Mild COUGH Verified 08/16/24 13:18 prochlorperazine AdvReac Unknown Verified 08/16/24 13:18 [PROCHLORPERAZINE] shellfish derived AdvReac Unknown Verified 08/16/24 13:18 [SHELLFISH DERIVED] Review of Systems <Caitlin Felder PA-C - Last Filed: 11/09/24 16:30> Review of Systems ROS Unobtainable: All systems reviewed & are unremarkable except as noted in HPI and below Patient History <Caitlin Felder PA-C - Last Filed: 11/09/24 16:30> Medical History Opiate dependence Peripheral autonomic neuropathy due to diabetes mellitus Sacral back pain Diabetes, type 1.5, uncontrolled, managed as type 2 Myocardial infarct (10/17/06) Hx of drug abuse Measles (Unknown) GERD (gastroesophageal reflux disease) (Unknown) Hyperlipemia (Unknown) Obstructive sleep apnea (Unknown) Atrial fibrillation (Unknown) Hypertension (Unknown) Hepatitis C (Unknown) Peripheral vascular disease (Unknown) Carotid artery disease (Unknown) Hypothyroidism (Unknown) Erectile dysfunction (Unknown) Coronary artery disease involving coronary bypass graft of [place] heart without angina pectoris (09/11/15) Surgical History S/P bilateral BKA (below knee amputation) History of penile implant History of open reduction and internal fixation (ORIF) procedure (09/2010) Hx of coronary artery bypass surgery (10/2006) Hx of cataract surgery (~2004) S/P bilateral below knee amputation (Unknown) Family History Father Age: 89 Heart disease ETOH abuse Mother Age: 97 Heart disease Alzheimer's dementia without behavioral disturbance, Alzheimer's disease of unspecified onset Social History household members: spouse Smoking Status: Former smoker alcohol intake: current substance use type: does not use Smoking Status: Former smoker alcohol intake frequency: holidays/special occasions only Exam <Caitlin Felder PA-C - Last Filed: 11/09/24 16:30> Narrative Exam Narrative: GENERAL: 78 year old patient appears stated age. Well-developed patient, in no acute distress. HEAD: Atraumatic. Normocephalic. NECK: Trachea midline. Cervical ROM intact. CARDIOVASCULAR: Regular rate and rhythm. RESPIRATORY: ?Nonlabored respirations. ?Speaking in clear, full sentences. ?Clear to auscultation. Breath sounds equal bilaterally. No wheezes, rales, or rhonchi. ? GASTROINTESTINAL: Abdomen soft, non-tender, nondistended. EXTREMITIES: BL BKAs with prosthetics. BACK: Nontender without deformity or crepitance. No flank tenderness. NEURO: AOx3. ?Clear speech. SKIN: No rash or erythema of visible areas Initial Vital Signs Initial Vital Signs: Vital Signs Temperature 97.5 F L 11/09/24 13:28 Pulse Rate 65 11/09/24 13:28 Respiratory Rate 18 11/09/24 13:28 Blood Pressure 146/99 H 11/09/24 13:28 Pulse Oximetry 96 11/09/24 13:28 Oxygen Delivery Method Room Air 11/09/24 13:28 <Lui Justin MD - Last Filed: 11/09/24 20:53> Initial Vital Signs Initial Vital Signs: Vital Signs Temperature 97.5 F L 11/09/24 13:28 Pulse Rate 65 11/09/24 13:28 Respiratory Rate 18 11/09/24 13:28 Blood Pressure 146/99 H 11/09/24 13:28 Pulse Oximetry 96 11/09/24 13:28 Oxygen Delivery Method Room Air 11/09/24 13:28 Course <Caitlin Felder PA-C - Last Filed: 11/09/24 16:30> Orders Ordered: ED Orders 11/09/24 13:38 Chest [XR chest 2V] Stat 11/09/24 15:00 Covid-19 + FLU A/B + RSV - PCR Stat Vital Signs Vital signs: Vital Signs - 8 hr 11/09/24 13:28 11/09/24 15:01 11/09/24 15:02 Temperature 97.5 F L Pulse Rate 65 68 68 Respiratory Rate 18 Blood Pressure 146/99 H Pulse Oximetry 96 97 97 Oxygen Delivery Method Room Air 11/09/24 15:02 11/09/24 16:31 Temperature Pulse Rate 70 Respiratory Rate Blood Pressure 152/80 H 154/70 H Pulse Oximetry 98 Oxygen Delivery Method <Lui Justin MD - Last Filed: 11/09/24 20:53> Orders Ordered: ED Orders 11/09/24 13:38 Chest [XR chest 2V] Stat 11/09/24 15:00 Covid-19 + FLU A/B + RSV - PCR Stat Vital Signs Vital signs: Vital Signs - 8 hr 11/09/24 13:28 11/09/24 15:01 11/09/24 15:02 Temperature 97.5 F L Pulse Rate 65 68 68 Respiratory Rate 18 Blood Pressure 146/99 H Pulse Oximetry 96 97 97 Oxygen Delivery Method Room Air 11/09/24 15:02 11/09/24 16:31 Temperature Pulse Rate 70 Respiratory Rate Blood Pressure 152/80 H 154/70 H Pulse Oximetry 98 Oxygen Delivery Method MDM - URI/Sore Throat <Caitlin Felder PA-C - Last Filed: 11/09/24 16:30> Medical Records Attestation: I reviewed the patient's medical records. Lab Data Labs: Lab Results 11/09/24 Range/Units 15:00 SARS-CoV-2 (PCR) Positive H (Negative) Influenza A (RT-PCR) Flu a negative (NEGATIVE) Influenza B (RT-PCR) Flu b negative (NEGATIVE) RSV (PCR) Negative (Negative) Point of Care Testing Glucose POC 115 Imaging Data Chest x-ray: Radiologist's Impression: PROCEDURE: XR CHEST 2V INDICATIONS: cough x 13 days TECHNIQUE: 2 views of the chest were acquired. COMPARISON: [facility], CR, XR CHEST 2V, 10/10/2022, 20:38. FINDINGS: Surgical changes and devices: Median sternotomy wires are seen. Lungs and pleura: Lungs are clear. No pleural effusions or pneumothorax. Mediastinum: Mediastinal contours are normal. Heart size is normal. Bones and chest wall: No suspicious bony abnormalities. Soft tissues appear unremarkable. IMPRESSION: No acute cardiopulmonary pathology. [facility] Narrative Medical decision making narrative: 78-year-old male with a past medical history of type 1.5 diabetes on insulin, bilateral lower extremity amputations, CAD s/p CABG, HTN, HLD, AFib on Eliquis who presents to the emergency department for cough times 13 days. Differential diagnosis includes but is not limited to viral URI, pneumonia, sinusitis, muscle strain, costochondritis, pleural effusions, etc. On exam the patient is in no acute distress, nontoxic appearing, vital signs appropriate. He has not febrile or tachycardic. Lungs are clear to auscultation with no crackles or wheezes, regular rate and rhythm at this time. We will obtain COVID/flu/RSV swab and two-view chest x-ray. No chest pain, difficulty breathing. Chest x-ray negative for pneumonia. COVID-19 positive. Blood glucose was checked and was low at 48 however patient has skipped lunch, was given juice and had improvement of blood glucose to 115. O2 saturation 97% on room air, not tachycardic. He has not a candidate for Paxlovid as his symptoms have been going on for 13 days. Recommended supportive care and discussed strict ER return precautions. Patient verbalized understanding of all information and is eager for discharge home. He is stable for discharge at this time. <Lui Justin MD - Last Filed: 11/09/24 20:53> Lab Data Labs: Lab Results 11/09/24 Range/Units 15:00 SARS-CoV-2 (PCR) Positive H (Negative) Influenza A (RT-PCR) Flu a negative (NEGATIVE) Influenza B (RT-PCR) Flu b negative (NEGATIVE) RSV (PCR) Negative (Negative) Point of Care Testing Glucose POC 115 Discharge Plan Departure Patient Disposition: Home Clinical Impression: COVID, Hypoglycemia Instructions: DI for COVID-19 (Suspected or Confirmed ) Activity Restrictions/Additional Instructions: Today you tested positive for COVID. Your chest x-ray was negative for p neumonia. Please rest, hydrate, return to the ER with any new or worsening symptoms such as shortness of breath, chest pain, etc.. Please follow up with your primary care doctor within the next 2-3 days for ER follow-up. (If you do not have a PCP you can call [phone]. ?to schedule an appointment with an [facility] Primary Care Provider) IF YOU DEVELOP ANY NEW OR WORSENING SYMPTOMS, RETURN TO THE ER! Please read the attached instructions, they highlight more specific treatments and interventions for you at home. Thank you for letting me participate in your care, Caitlin Felder PA-C Prescriptions: No Action metoprolol tartrate 100 mg tablet See Rx Instructions .ROUTE .COMPLEX Qty: 180 3RF Dose Instruction: take 1 tablet by mouth twice a day Rx Instructions: 100 BID apixaban 5 mg tablet 5 mg PO BID (DME) Liners, suspension sleeves, and socks See Rx Instructions .Route .MEDSUPPLY Qty: 1 0RF Rx Instructions: As directed (DME) Syringes: 1cc Insulin Syringes with [place] 0 .Route .MEDSUPPLY Qty: 100 3RF Dose Instruction: As directed Rx Instructions: Use 1 syringe with 30x12.7 mm needle to inject insulin four times daily. (DME) OneTouch Ultra Test Strip See Rx Instructions .Route Qty: 250 5RF Rx Instructions: use one strip to test blood glucose four times daily (DME) Glucose: Test Strips See Rx Instructions .Route .MEDSUPPLY Qty: 250 6RF Dose Instruction: QID; Rx Instructions: Test blood sugar four times a day for type 2 diabetes (DME) OneTouch Ultra Test Strip See Rx Instructions .Route Qty: 100 11RF Rx Instructions: test blood sugar 4 times daily furosemide 20 mg tablet 20 mg PO QDAY Qty: 90 3RF rosuvastatin 20 mg tablet 20 mg PO BEDTIME Qty: 90 3RF Hold Instructions: Needs labs levothyroxine 175 mcg tablet 175 mcg PO DAILY Qty: 90 3RF Humulin 70/30 U-100 KwikPen 100 unit/mL (70-30) insulin pen 40 unit SUBCUT BID Qty: 30 11RF Rx Instructions: ADMINISTER 40 UNITS UNDER THE SKIN TWICE DAILY BEFORE MEALS losartan 25 mg tablet 25 mg PO DAILY Qty: 90 3RF tamsulosin 0.4 mg capsule 0.4 mg PO QPM Qty: 90 3RF naloxone [Narcan] 4 mg/actuation spray,non-aerosol 4 mg intranasal Q2M Qty: 2 5RF Rx Instructions: spray 1 dose into ONE nostril; alternate nostrils w each dose until help arrives duloxetine [Cymbalta] 20 mg capsule,delayed release(DR/EC) 20 mg PO DAILY pregabalin [Lyrica] 25 mg capsule 25 mg PO BID Qty: 60 5RF doxycycline monohydrate 100 mg capsule 100 mg PO BID Qty: 14 0RF Referrals: Sobia Draper DO [Primary Care Provider] - Stand Alone Forms: Patient Portal/API/Survey ED Sign-out <Lui Justin MD - Last Filed: 11/09/24 20:53> Cosign ED Attending Cosignature Attestation: I was immediately available in the department for consultation. This documentation has been reviewed and I agree with assessment and plan. Supervised by Lui Justin [id number]
[2024-11-09 15:01] VITALS: PULSE 68; O2SAT 97
[2024-11-09 15:02] VITALS: BP 152/80; PULSE 68; O2SAT 97
[2024-11-09 15:45] LABS: Influenza A - CEPHEID Flu A NEGATIVE (NEGATIVE); Influenza B - CEPHEID Flu B NEGATIVE (NEGATIVE); Respiratory Syncytial Virus Negative (Negative)
[2024-11-09 15:48] LABS: COVID-19 CEPHEID 4-PLEX PCR POSITIVE (Negative)
[2024-11-09 16:31] VITALS: BP 154/70; PULSE 70; O2SAT 98
== END 2024-11-09 16:42 | disposition home or self-care (01) ==
PROVIDERS: Emergency Provider Physician Assistant; PCP Family Medicine
DX: U07.1 COVID-19 (principal); E16.2 Hypoglycemia, unspecified
CPT/HCPCS: 0241U; 71046; 82962; 99282; 99283

== ENCOUNTER → 2024-11-15 14:24 | Outpatient (CLI) | payer MEDICARE, OTHER, SELFPAY ==
[2024-03-11 11:36] VITALS: BMI 30.2
[2024-11-15 15:50] LABS: Hemoglobin A1C% w Est Avg Glu 7.7 % (4.0-6.0)
== END ==
PROVIDERS: PCP Family Medicine; Referring Provider Family Medicine; Visit Provider Family Medicine
DX: E13.65 Other specified diabetes mellitus with hyperglycemia (principal)
CPT/HCPCS: 36415; 83036

== ENCOUNTER 2024-11-30 19:35 | Emergency (ER) | payer MEDICARE, OTHER, SELFPAY ==
[2024-03-11 11:36] VITALS: BMI 30.2
[2024-11-30] VITALS (10 sets, daily range): BP systolic 102–125; BP diastolic 55–83; PULSE 69–78; RESP 15–28; TEMP 36.7; O2SAT 93–100; BMI 35.9
--- NOTE | 2024-11-30 20:08 | EKG_ITS ---
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
[2024-11-30 20:43] LABS: Add Manual Diff / Slide Review NO; Basophils Absolute Auto 100 /uL (0-100); Basophils Percent Auto 0.5 % (0-2); Eosinophils Absolute Auto 200 /uL (0-450); Eosinophils Percent Auto 2.2 % (2-4); Hematocrit 40.1 % (41-53); Hemoglobin 13.5 g/dL (13.5-17.5); Lymphocytes Absolute Auto 1800 /uL (1100-4500); Lymphocytes Percent Auto 18.3 % (25-40); Mean Corpuscular HGB Conc 33.7 % (30-36); Mean Corpuscular Hemoglobin 28.2 PG (26-34); Mean Corpuscular Volume 83.5 fL (80-100); Monocytes Absolute Auto 700 /uL (0-900); Neutrophils Absolute Auto 6900 /uL (1500-7000); Platelet Count 201 X10^3/uL (150-400); Red Blood Cell Count 4.81 X10^6/uL (4.5-5.9); Red Cell Distribution Width 13.9 % (11.6-14.8); White Blood Cell Count 9.6 X10^3/uL (4.5-11.0)
--- NOTE | 2024-11-30 20:44 | PC.NURSE ---
blood sugar initially 65, Juice box given, pt awake and talking to staff. Second BG 66. Second juice given and crackers.
[2024-11-30 20:52] LABS: Base Excess VBG -2.2 mmol/L (0-4); HCO3 VBG 23 mmol/L (24-28); Oxygen Saturation VBG 52 % (70-75); PCO2 VBG 40.1 mmHg (45-50); PO2 VBG 28 mmHg (35-45); Total CO2 VBG 22 mmol/L (24-29); pH VBG 7.37 (7.33-7.43)
[2024-11-30 20:56] LABS: Alanine Aminotransferase 22 IU/L (<50); Albumin 4.2 g/dL (3.5-5.0); Albumin Globulin Ratio 1.3 (1.0-2.8); Alkaline Phosphatase 97 U/L (38-126); Aspartate Aminotransferase 34 IU/L (17-59); BUN Creatinine Ratio 19.8 (6-22); Bilirubin Total 0.9 mg/dL (0.2-1.3); Blood Urea Nitrogen 17 mg/dL (9-20); Calcium 9.5 mg/dL (8.4-10.2); Carbon Dioxide 23 mmol/L (22-32); Chloride 108 mmol/L (98-107); Estimated Glomerular Filt Rate > 60 mL/min (>60); Globulin 3.3 g/dL (1.7-4.1); Glucose 59 mg/dL (80-110); HEMOLYSIS < 15 (0-50); Lipase < 10 U/L (23-300); Sodium 136 mmol/L (137-145); Total Protein 7.5 g/dL (6.3-8.2)
[2024-11-30] MEDS: SODIUM CHLORIDE 0.9% 1,000 ML 1000 ML IV (20:57)
[2024-11-30 21:04] LABS: Ketones (Beta-Hydroxybutyrate) 0.11 mmol/L (<0.27)
--- NOTE | 2024-11-30 22:25 | ED_ITS ---
HPI - Nausea/Vomiting/Diarrhea General Chief complaint: Nausea/Vomiting/Diarrhea Stated complaint: Diarrhea, Diabetic Time Seen by Provider: 11/30/24 20:53 Source: patient, RN notes reviewed and old records reviewed Mode of arrival: Ambulatory Limitations: no limitations History of Present Illness HPI Narrative: 78-year-old male history of diabetes on insulin, bilateral lower extremity amputation, CAD status post 4 vessel CABG, hypertension, dyslipidemia, AFib on Eliquis with prior history of substance abuse presents with complaint of diarrhea for the past 5 days. Patient states he has actually been having issues on and off for the past 1.5 months. Notes he would COVID in October. States he had proximally 20 episodes of diarrhea yesterday he describes it as yellow no black or bloody stools did have little bit of periumbilical pain but none currently. He took 8 tablets of Imodium today and it has since stopped. He denies any urinary symptoms. No fevers. No new cold cough or congestion. No chest pain or shortness of breath. Had some nausea and vomiting about 3 weeks but states none currently. States he has not been taking much oral intake recently and did pass out on Friday. States he takes insulin, Eliquis, metoprolol, losartan, simvastatin, levothyroxine, tamsulosin and furosemide. Patient states he has had prior bilateral feet amputation for diabetes, hip repair, 4 vessel CABG. Has multiple allergies to antibiotics. No tobacco, alcohol or recreational drugs notes his last use of narcotics was 4 months ago was using IV drugs in the past but not currently. Dr. Draper is his primary care physician. Related Data Home Medications Medication Instructions Recorded Confirmed apixaban 5 mg tablet 5 mg PO BID 08/22/21 11/15/24 Previous Rx's Medication Instructions Recorded metoprolol tartrate 100 mg tablet See Rx Instructions .Route 10/16/20 .COMPLEX #180 tabs Liners, suspension sleeves, and #1 ea 09/11/21 socks Syringes: 1cc Insulin Syringes #100 ea 11/19/22 with [place] blood sugar diagnostic (OneTouch #250 ea 10/24/23 Ultra Test strips) Glucose: Test Strips #250 ea 11/12/23 blood sugar diagnostic (OneTouch #100 ea 12/05/23 Ultra Test strips) furosemide 20 mg tablet 20 mg PO QDAY #90 tabs 12/22/23 levothyroxine 175 mcg tablet 175 mcg PO DAILY #90 tabs 12/22/23 rosuvastatin 20 mg tablet 20 mg PO BEDTIME #90 tabs 12/22/23 insulin NPH-regular 70-30 U-100 40 unit (0.4 mL) SUBCUT BID #30 mL 07/14/24 insulin 100 unit/mL subcutaneous pen (Humulin 70/30 U-100 KwikPen) losartan 25 mg tablet 25 mg PO DAILY #90 tabs 09/13/24 tamsulosin 0.4 mg capsule 0.4 mg PO QPM #90 caps 09/20/24 Allergies Allergy/AdvReac Type Severity Reaction Status Date / Time cephalexin Allergy Severe Blister Verified 11/30/24 19:59 Cephalosporins Allergy Blister Verified 11/30/24 19:59 adhesive tape [ADHESIVE TAPE] AdvReac Mild PATIENT Verified 11/30/24 19:59 STATES IT PEELS HIS SKIN OFF lisinopril [LISINOPRIL] AdvReac Mild COUGH Verified 11/30/24 19:59 prochlorperazine AdvReac Unknown Verified 11/30/24 19:59 [PROCHLORPERAZINE] shellfish derived AdvReac Unknown Verified 11/30/24 19:59 [SHELLFISH DERIVED] Review of Systems Review of Systems ROS Unobtainable: All systems reviewed & are unremarkable except as noted in HPI and below Patient History Medical History Opiate dependence Peripheral autonomic neuropathy due to diabetes mellitus Sacral back pain Diabetes, type 1.5, uncontrolled, managed as type 2 Myocardial infarct (10/17/06) Hx of drug abuse Measles (Unknown) GERD (gastroesophageal reflux disease) (Unknown) Hyperlipemia (Unknown) Obstructive sleep apnea (Unknown) Atrial fibrillation (Unknown) Hypertension (Unknown) Hepatitis C (Unknown) Peripheral vascular disease (Unknown) Carotid artery disease (Unknown) Hypothyroidism (Unknown) Erectile dysfunction (Unknown) Coronary artery disease involving coronary bypass graft of [place] heart without angina pectoris (09/11/15) Surgical History S/P bilateral BKA (below knee amputation) History of penile implant History of open reduction and internal fixation (ORIF) procedure (09/2010) Hx of coronary artery bypass surgery (10/2006) Hx of cataract surgery (~2004) S/P bilateral below knee amputation (Unknown) Family History Father Age: 89 Heart disease ETOH abuse Mother Age: 97 Heart disease Alzheimer's dementia without behavioral disturbance, Alzheimer's disease of unspecified onset Social History household members: spouse Smoking Status: Former smoker alcohol intake: current substance use type: does not use Smoking Status: Former smoker alcohol intake frequency: holidays/special occasions only Exam Narrative Exam Narrative: GENERAL: Alert and oriented x three, male in mild distress HEENT: Head normocephalic, atraumatic, EOMI, pupils reactive, face symmetric, moist mucous membranes NECK: Supple, full range of motion CARDIOVASCULAR: Regular rate and rhythm without murmurs, rubs or gallops. RESPIRATORY: Breath sounds equal bilaterally, no wheezes rales or rhonchi. ABDOMEN: Soft, nontender. Nondistended. Normoactive bowel sounds all 4 quadrants. No guarding or rebound, rigidity, no mass : No CVA tenderness EXTREMITIES: Normal range of motion, patient has bilateral lower extremity amputations does have prosthetics on. NEUROLOGICAL: Cranial nerves II through XII grossly intact. Moving all extremities SKIN: Warm, dry, no petechiae, no rashes or lesions. Initial Vital Signs Initial Vital Signs: Vital Signs Temperature 98.1 F 11/30/24 19:59 Pulse Rate 75 11/30/24 19:59 Respiratory Rate 20 11/30/24 19:59 Blood Pressure 105/59 L 11/30/24 19:59 Pulse Oximetry 99 11/30/24 19:59 Oxygen Delivery Method Room Air 11/30/24 19:59 Course Orders Ordered: ED Orders 11/30/24 20:08 EKG-12 Lead Stat Venous Blood Gas STAT 11/30/24 20:30 Complete Blood Count AUTO DIFF Stat Comprehensive Metabolic Panel Stat Ketones (Beta-Hydroxybutyrate) Stat Lipase Stat 11/30/24 20:48 Venous Blood Gas Routine 11/30/24 22:37 CT abdomen pelvis w con Stat 11/30/24 22:38 Covid-19 + FLU A/B + RSV - PCR Stat 11/30/24 23:24 GI Panel (Film Array) Stat Discontinued Medications Sodium Chloride (Normal Saline 0.9%) 1,000 mls @ 1,000 mls/hr IV BOLUS ONE Stop: 11/30/24 21:53 Last Infusion: 11/30/24 21:57 Dose: Infused Documented By: Admin: 11/30/24 20:57 Dose: 1,000 mls/hr Documented By: Ondansetron HCl (Ondansetron 4 Mg/2 Ml Inj) 4 mg IV NOW PRN PRN Reason: Nausea And Vomiting Ondansetron HCl (Ondansetron 4 Mg Odt) 4 mg PO NOW PRN PRN Reason: Nausea And Vomiting Vital Signs Vital signs: Vital Signs - 8 hr 11/30/24 19:59 11/30/24 20:10 11/30/24 20:10 Temperature 98.1 F Pulse Rate 75 75 Respiratory Rate 20 Blood Pressure 105/59 L 125/61 Pulse Oximetry 99 99 Oxygen Delivery Method Room Air 11/30/24 20:30 11/30/24 20:35 11/30/24 20:35 Temperature Pulse Rate 75 78 Respiratory Rate 15 28 H Blood Pressure 114/62 Pulse Oximetry 100 95 Oxygen Delivery Method 11/30/24 21:00 11/30/24 21:00 11/30/24 21:30 Temperature Pulse Rate 71 69 Respiratory Rate 23 22 Blood Pressure 122/65 Pulse Oximetry 97 97 Oxygen Delivery Method Room Air Room Air 11/30/24 21:30 11/30/24 22:00 11/30/24 22:00 Temperature Pulse Rate 69 Respiratory Rate 21 Blood Pressure 117/56 L 118/55 L Pulse Oximetry 95 Oxygen Delivery Method 11/30/24 22:30 11/30/24 22:30 11/30/24 23:50 Temperature Pulse Rate 73 78 Respiratory Rate 17 24 Blood Pressure 113/83 Pulse Oximetry 99 93 Oxygen Delivery Method Room Air 11/30/24 23:51 11/30/24 23:51 Temperature Pulse Rate 75 Respiratory Rate 19 Blood Pressure 102/57 L Pulse Oximetry 97 Oxygen Delivery Method Room Air MDM - Nausea/Vomiting/Diarrhea Lab Data 11/30/24 20:30 11/30/24 20:30 Labs: Lab Results 11/30/24 11/30/24 11/30/24 Range/Units 20:30 20:48 22:38 WBC 9.6 (4.5-11.0) X10^3/uL RBC 4.81 (4.5-5.9) X10^6/uL Hgb 13.5 (13.5-17.5) g/dL Hct 40.1 L (41-53) % MCV 83.5 (80-100) fL MCH 28.2 (26-34) PG MCHC 33.7 (30-36) % RDW 13.9 (11.6-14.8) % Plt Count 201 (150-400) X10^3/uL Neut % (Auto) 72.0 (50-75) % Lymph % (Auto) 18.3 L (25-40) % [place] % (Auto) 7.0 (3-14) % Eos % (Auto) 2.2 (2-4) % Baso % (Auto) 0.5 (0-2) % Neut # (Auto) 6900 (8427-6897) /uL Lymph # (Auto) 1800 (6793-4402) /uL [place] # (Auto) 700 (0-900) /uL Eos # (Auto) 200 (0-450) /uL Baso # (Auto) 100 (0-100) /uL VBG pH 7.37 (7.33-7.43) VBG pCO2 40.1 L (45-50) mmHg VBG pO2 28 L (35-45) mmHg VBG HCO3 23 L (24-28) mmol/L VBG Total CO2 22 L (24-29) mmol/L VBG O2 Saturation 52 L (70-75) % VBG Base Excess -2.2 L (0-4) mmol/L Sodium 136 L (137-145) mmol/L Potassium 4.0 (3.4-5.1) mmol/L Chloride 108 H (98-107) mmol/L Carbon Dioxide 23 (22-32) mmol/L BUN 17 (9-20) mg/dL Creatinine 0.86 (0.66-1.25) mg/dL Estimated GFR > 60 (>60) mL/min BUN/Creatinine Ratio 19.8 (6-22) Glucose 59 L (80-110) mg/dL Calcium 9.5 (8.4-10.2) mg/dL Total Bilirubin 0.9 (0.2-1.3) mg/dL AST 34 (17-59) IU/L ALT 22 (<50) IU/L Alkaline Phosphatase 97 (38-126) U/L Total Protein 7.5 (6.3-8.2) g/dL Albumin 4.2 (3.5-5.0) g/dL Globulin 3.3 (1.7-4.1) g/dL Albumin/Globulin Ratio 1.3 (1.0-2.8) Lipase < 10 L (23-300) U/L Stl C. c[place]ensis PCR (Not Detect) Stool Rotavirus (PCR) (Not Detect) Stool Adenovirus (PCR) (Not Detect) Stool Astrovirus (PCR) (Not Detect) Stool Cryptosporidium PCR (Not Detect) Stl E.coli Shiga Tox PCR (Not Detect) St Sh/Enteroin Ecoli PCR (Not Detect) Stl Enterotoxigenic E PCR (Not Detect) Stool EPEC (PCR) (Not Detect) Stl E. histolytica PCR (Not Detect) Stool Giardia Lamblia PCR (Not Detect) Stool Sapovirus (PCR) (Not Detect) Stl P. shigelloides PCR (Not Detect) St Y.enterocolitica PCR (Not Detect) Stool Vibrio (PCR) (Not Detect) Stl Vibrio cholerae PCR (Not Detect) Stl Enteroaggr Ecoli PCR (Not Detect) Stl Norovirus GI/GII PCR (Not Detect) Ketones 0.11 (<0.27) mmol/L Campylobacter (PCR) (Not Detect) C. difficile Tox (PCR) (Not Detect) SARS-CoV-2 (PCR) Positive H (Negative) Influenza A (RT-PCR) Flu a negative (NEGATIVE) Influenza B (RT-PCR) Flu b negative (NEGATIVE) RSV (PCR) Negative (Negative) Salmonella (PCR) (Not Detect) 11/30/24 Range/Units 23:24 WBC (4.5-11.0) X10^3/uL RBC (4.5-5.9) X10^6/uL Hgb (13.5-17.5) g/dL Hct (41-53) % MCV (80-100) fL MCH (26-34) PG MCHC (30-36) % RDW (11.6-14.8) % Plt Count (150-400) X10^3/uL Neut % (Auto) (50-75) % Lymph % (Auto) (25-40) % [place] % (Auto) (3-14) % Eos % (Auto) (2-4) % Baso % (Auto) (0-2) % Neut # (Auto) (6334-9008) /uL Lymph # (Auto) (9467-9681) /uL [place] # (Auto) (0-900) /uL Eos # (Auto) (0-450) /uL Baso # (Auto) (0-100) /uL VBG pH (7.33-7.43) VBG pCO2 (45-50) mmHg VBG pO2 (35-45) mmHg VBG HCO3 (24-28) mmol/L VBG Total CO2 (24-29) mmol/L VBG O2 Saturation (70-75) % VBG Base Excess (0-4) mmol/L Sodium (137-145) mmol/L Potassium (3.4-5.1) mmol/L Chloride (98-107) mmol/L Carbon Dioxide (22-32) mmol/L BUN (9-20) mg/dL Creatinine (0.66-1.25) mg/dL Estimated GFR (>60) mL/min BUN/Creatinine Ratio (6-22) Glucose (80-110) mg/dL Calcium (8.4-10.2) mg/dL Total Bilirubin (0.2-1.3) mg/dL AST (17-59) IU/L ALT (<50) IU/L Alkaline Phosphatase (38-126) U/L Total Protein (6.3-8.2) g/dL Albumin (3.5-5.0) g/dL Globulin (1.7-4.1) g/dL Albumin/Globulin Ratio (1.0-2.8) Lipase (23-300) U/L Stl C. cayetanensis PCR Not detected (Not Detect) Stool Rotavirus (PCR) Not detected (Not Detect) Stool Adenovirus (PCR) Not detected (Not Detect) Stool Astrovirus (PCR) Not detected (Not Detect) Stool Cryptosporidium PCR Not detected (Not Detect) Stl E.coli Shiga Tox PCR Not detected (Not Detect) St Sh/Enteroin Ecoli PCR Not detected (Not Detect) Stl Enterotoxigenic E PCR Not detected (Not Detect) Stool EPEC (PCR) Not detected (Not Detect) Stl E. histolytica PCR Not detected (Not Detect) Stool Giardia Lamblia PCR Not detected (Not Detect) Stool Sapovirus (PCR) Not detected (Not Detect) Stl P. shigelloides PCR Not detected (Not Detect) St Y.enterocolitica PCR Not detected (Not Detect) Stool Vibrio (PCR) Not detected (Not Detect) Stl Vibrio cholerae PCR Not detected (Not Detect) Stl Enteroaggr Ecoli PCR Not detected (Not Detect) Stl Norovirus GI/GII PCR Not detected (Not Detect) Ketones (<0.27) mmol/L Campylobacter (PCR) Not detected (Not Detect) C. difficile Tox (PCR) Not detected (Not Detect) SARS-CoV-2 (PCR) (Negative) Influenza A (RT-PCR) (NEGATIVE) Influenza B (RT-PCR) (NEGATIVE) RSV (PCR) (Negative) Salmonella (PCR) Not detected (Not Detect) Point of Care Testing Glucose POC 87 Urine Dip Bedside Urine Glucose Negative Bedside Urine Bilirubin - Negative Bedside Urine Ketone - Negative Urine Specific [place] 1.010 Bedside Urine Occult Blood - Negative Bedside Urine pH 5.5 Bedside Urine Protein - Negative Bedside Urine Urobilinogen - Negative Bedside Urine Nitrite - Negative Bedside Urine Leukocytes - Negative Esterase Imaging Data CT scan - abdomen/pelvis: Radiologist's Impression: [place] [id number] CT Scan Report Signed with Nehal Patient: Tulio Yi MR#: [id number] : 1945 Acct:[id number] Age/Sex: 78 / M Date of Service: 11/30/24 Loc: ED Accession Number: [id number] Procedure: CT abdomen pelvis w con Ordering Provider: Malathi Fraser D.O. ADDENDUMThis report includes an Addendum and supersedes previous reports for this exam. PROCEDURE: CT ABDOMEN PELVIS W CON INDICATIONS: diarrhea on/off x1.5, 5 days recent periumb pain TECHNIQUE: After the administration of intravenous contrast, axial sections acquired from the lung bases to the pubic symphysis. Coronal and sagittal reformats were performed. For radiation dose reduction, the following was used: automated exposure control, adjustment of mA and/or kV according to patient size. COMPARISON: None. FINDINGS: Image quality: Diagnostic. Lower Chest: Subsegmental atelectasis. Coronary artery calcifications/stents. Median sternotomy wires. ABDOMEN: Liver: No solid mass. Gallbladder: No radiopaque gallstones or wall thickening. Biliary ducts: No biliary dilation. Pancreas: No ductal dilation. Spleen: Size is within normal limits. Adrenal Glands: No adrenal nodules. Kidneys and Ureters: No hydronephrosis. No solid mass. No complex renal cystic lesion which requires follow up. Stomach and Bowel: Normal colonic caliber, without significant wall thickening. Nondistended fluid-filled small bowel. No small bowel obstruction. Peritoneum: No abnormal intraperitoneal fluid. No free air. Ventral Wall: Small fat containing periumbilical hernia. Abdominal Nodes: No retroperitoneal or mesenteric adenopathy by size criteria. Vessels: Aorta and inferior vena cava are normal in size. Aorto bi iliac atherosclerotic calcifications. PELVIS: Pelvic Organs: Penile implant. Bladder: No bladder wall thickening, accounting for underdistention. Pelvic Nodes: No enlarged lymph nodes. Miscellaneous: Left inguinal hernia containing mesenteric fat, small bowel and trace fluid. Left fat containing inguinal hernia containing trace fluid. Bones: No aggressive osseous abnormality. Degenerative changes of the visualized spine without acute vertebral body compression fracture. Status post right proximal femoral ORIF. IMPRESSION: Left inguinal hernia containing loop of small bowel without evidence of strangulation. Approved by: Macie Workman M.D.,Ph.D. on 11/30/2024 at 23:38 ADDENDUM: Correction to laterality of inguinal hernia containing loop of small bowel as described in the findings and impression as follows: Miscellaneous: RIGHT inguinal hernia containing mesenteric fat, small bowel and trace fluid. Left fat containing inguinal hernia containing trace fluid. IMPRESSION: RIGHT inguinal hernia containing loop of small bowel without evidence of strangulation. Approved by: Macie Workman M.D.,Ph.D. on 12/01/2024 at 1:27 Addendum Dictated By: Macie Workman MD Addendum Signed By: 12/01/24 0127 Addendum Cosigned By: ECG Data Attestation: I personally reviewed and interpreted this ECG as follows: Prior ECG tracings: available for review Interpretation: AFib rate of 75 QRS of 108 QTC of 446, incomplete right bundle-branch. Patient has prior from 10/10/2022 which appears overall similar. MDM Narrative Medical decision making narrative: 78-year-old presents with complaint of diarrhea for the past 5 days stopped about 530 this evening but describes as yellow with no bright red blood or black stools notes he would COVID at least twice in his member did have a positive test on 11/09/2024 did take Imodium today seemed to help with his diarrhea. He was noted to be hypoglycemic here in the department he notes he has not had much intake and was given fluids as well as juice, ensure, sandwich and some other food and glucose improved into the 80s. As patient did have little bit of periumbilical pain although not on exam and has had persistent diarrhea felt appropriate to obtain CT imaging. If patient is able to provide a stool sample we will obtain a GI panel. Labs show white count of 9.6 hemoglobin of 13.5 platelets of 201. Sodium is 136 potassium 4 chloride 108 CO2 is 23 BUN 17 creatinine 0.86 with a glucose of 59 LFTs are negative lipase is less than 10. Ketones are 0.11 ABG showed a pH of 7.37/pCO2 of 40/PO2 of 28 bicarb 23. COVID/influenza/RSV is positive for COVID. Patient was positive on 11/09/2024 so this may be persistent positive from prior. EKG shows AFib rate controlled had 75 GI panel is negative. CT abdomen pelvis subsegmental atelectasis, coronary artery calcifications/stents median sternotomy wires. Small fat containing periumbilical hernia. Right inguinal hernia containing mesenteric fat small bowel and trace fluid left fat containing inguinal hernias urinating trace fluid without evidence of strangulation. Discussed findings with the patient. Patient is aware of his hernia states he can easily push it back in does feel to be reducible on exam, hernia is on right and this is consistent when CT is reviewed by myself, radiology contacted to amend. He was able to give a GI panel but would like to return home before resulted. He was okay with us calling any antibiotics if necessary and calling him with the results in the morning. Patient has been up to the commode he has had 1 episode of diarrhea here. Patient left wifes number [phone] to call with results. Patient states okay to talk with . Discharge Plan Departure Patient Disposition: Home Clinical Impression: Diarrhea, Hernia, inguinal Activity Restrictions/Additional Instructions: Your GI panel is pending if this shows any infections that require antibiotics these will be sent to [facility]. Your imaging does show an inguinal hernia, if this becomes stuck out or painful or you are having vomiting or new abdominal pain you should be re-evaluated and I would recommend follow up with General surgery to see if this can be repaired. Contact is included below. Please call for an appointment. Please return for fevers new or worsening abdominal back or flank pain, persistent vomiting, inability to have a bowel movement black or bloody stool or other new or concerning changes. Prescriptions: No Action metoprolol tartrate 100 mg tablet See Rx Instructions .ROUTE .COMPLEX Qty: 180 3RF Dose Instruction: take 1 tablet by mouth twice a day Rx Instructions: 100 BID apixaban 5 mg tablet 5 mg PO BID (DME) Liners, suspension sleeves, and socks See Rx Instructions .Route .MEDSUPPLY Qty: 1 0RF Rx Instructions: As directed (DME) Syringes: 1cc Insulin Syringes with [place] 0 .Route .MEDSUPPLY Qty: 100 3RF Dose Instruction: As directed Rx Instructions: Use 1 syringe with 30x12.7 mm needle to inject insulin four times daily. (DME) OneTouch Ultra Test Strip See Rx Instructions .Route Qty: 250 5RF Rx Instructions: use one strip to test blood glucose four times daily (DME) Glucose: Test Strips See Rx Instructions .Route .MEDSUPPLY Qty: 250 6RF Dose Instruction: QID; Rx Instructions: Test blood sugar four times a day for type 2 diabetes (DME) OneTouch Ultra Test Strip See Rx Instructions .Route Qty: 100 11RF Rx Instructions: test blood sugar 4 times daily furosemide 20 mg tablet 20 mg PO QDAY Qty: 90 3RF rosuvastatin 20 mg tablet 20 mg PO BEDTIME Qty: 90 3RF Hold Instructions: Needs labs levothyroxine 175 mcg tablet 175 mcg PO DAILY Qty: 90 3RF Humulin 70/30 U-100 KwikPen 100 unit/mL (70-30) insulin pen 40 unit SUBCUT BID Qty: 30 11RF Rx Instructions: ADMINISTER 40 UNITS UNDER THE SKIN TWICE DAILY BEFORE MEALS losartan 25 mg tablet 25 mg PO DAILY Qty: 90 3RF tamsulosin 0.4 mg capsule 0.4 mg PO QPM Qty: 90 3RF Referrals: Deshawn Fong MD [Physician] - Sobia Draper DO [Primary Care Provider] - Stand Alone Forms: Patient Portal/API/Survey
--- NOTE | 2024-11-30 22:37 | DI.CT.S_ITS ---
PROCEDURE: CT ABDOMEN PELVIS W CON INDICATIONS: diarrhea on/off x1.5, 5 days recent periumb pain TECHNIQUE: After the administration of intravenous contrast, axial sections acquired from the lung bases to the pubic symphysis. Coronal and sagittal reformats were performed. For radiation dose reduction, the following was used: automated exposure control, adjustment of mA and/or kV according to patient size. COMPARISON: None. FINDINGS: Image quality: Diagnostic. Lower Chest: Subsegmental atelectasis. Coronary artery calcifications/stents. Median sternotomy wires. ABDOMEN: Liver: No solid mass. Gallbladder: No radiopaque gallstones or wall thickening. Biliary ducts: No biliary dilation. Pancreas: No ductal dilation. Spleen: Size is within normal limits. Adrenal Glands: No adrenal nodules. Kidneys and Ureters: No hydronephrosis. No solid mass. No complex renal cystic lesion which requires follow up. Stomach and Bowel: Normal colonic caliber, without significant wall thickening. Nondistended fluid-filled small bowel. No small bowel obstruction. Peritoneum: No abnormal intraperitoneal fluid. No free air. Ventral Wall: Small fat containing periumbilical hernia. Abdominal Nodes: No retroperitoneal or mesenteric adenopathy by size criteria. Vessels: Aorta and inferior vena cava are normal in size. Aorto bi iliac atherosclerotic calcifications. PELVIS: Pelvic Organs: Penile implant. Bladder: No bladder wall thickening, accounting for underdistention. Pelvic Nodes: No enlarged lymph nodes. Miscellaneous: Left inguinal hernia containing mesenteric fat, small bowel and trace fluid. Left fat containing inguinal hernia containing trace fluid. Bones: No aggressive osseous abnormality. Degenerative changes of the visualized spine without acute vertebral body compression fracture. Status post right proximal femoral ORIF. IMPRESSION: Left inguinal hernia containing loop of small bowel without evidence of strangulation. Approved by: Macie Workman M.D.,Ph.D. on 11/30/2024 at 23:38
[2024-11-30 23:22] LABS: Influenza A - CEPHEID Flu A NEGATIVE (NEGATIVE); Influenza B - CEPHEID Flu B NEGATIVE (NEGATIVE); Respiratory Syncytial Virus Negative (Negative)
[2024-11-30 23:25] LABS: COVID-19 CEPHEID 4-PLEX PCR POSITIVE (Negative)
[2024-12-01 00:44] LABS: Adenovirus F 40/41 Not Detected (Not Detect); Astrovirus Not Detected (Not Detect); Campylobacter Not Detected (Not Detect); Clostridium difficile toxin AB Not Detected (Not Detect); Cryptosporidium Not Detected (Not Detect); Cyclospora cayetanensis Not Detected (Not Detect); Entamoeba histolytica Not Detected (Not Detect); Enteroaggregative E.coli Not Detected (Not Detect); Enteropathogenic E.coli Not Detected (Not Detect); Enterotoxigenic E.coli It/st Not Detected (Not Detect); Giardia lamblia Not Detected (Not Detect); Norovirus GI/GII Not Detected (Not Detect); Plesiomonsa shigelloides Not Detected (Not Detect); Rotavirus A Not Detected (Not Detect); Salmonella Not Detected (Not Detect); Sapovirus Not Detected (Not Detect); Shiga-like toxin-prod E.coli Not Detected (Not Detect); Shigella/Enteroinvasive E.coli Not Detected (Not Detect); Vibrio Not Detected (Not Detect); Vibrio cholerae Not Detected (Not Detect); Yersinia enterocolitica Not Detected (Not Detect)
== END 2024-12-01 00:45 | disposition home or self-care (01) ==
PROVIDERS: Emergency Provider Emergency Medicine; PCP Family Medicine
DX: K40.90 Unilateral inguinal hernia, without obstruction or gangrene, not specified as recurrent (principal); R19.7 Diarrhea, unspecified; I48.91 Unspecified atrial fibrillation; U07.1 COVID-19; Z79.01 Long term (current) use of anticoagulants
CPT/HCPCS: 0241U; 36415; 74177; 80053; 81003; 82009; 82805; 82962; 83690; 85025; 87507; 93005; 93010; 96360; 99284; Q9967

== ENCOUNTER 2024-12-01 09:10 | Emergency (ER) | payer MEDICARE, OTHER, SELFPAY ==
[2024-03-11 11:36] VITALS: BMI 30.2
[2024-12-01] VITALS (13 sets, daily range): BP systolic 119–159; BP diastolic 65–71; PULSE 79–100; RESP 20; TEMP 36.6–36.8; O2SAT 96–99; BMI 32.8
--- NOTE | 2024-12-01 09:15 | ED.GENADULT ---
HPI - General Adult General Chief complaint: Syncope Stated complaint: GLF, Weakness Time Seen by Provider: 12/01/24 09:15 History of Present Illness HPI narrative: 78-year-old gentleman, diabetic bilateral BKA, coronary artery disease post CABG, history of hypertension, hyperlipidemia, chronic atrial fibrillation on Eliquis presents with continued diarrhea continued syncope. He was seen in the emergency room last night at 10:30 a.m. for similar complaints. Apparently he got up this morning became lightheaded while he was using his walker slumped to the wall and then to the floor. He states he did hit his head but he has not complaining of any head pain. Medics were called again for transport. His primary complaint is general abdominal discomfort and profuse watery diarrhea. He has not complaining of chest pain, dyspnea we complains of neck pain that is unchanged over the last number of weeks to possible months. He does have a history of IV recreational narcotic use. Related Data Home Medications Medication Instructions Recorded Confirmed apixaban 5 mg tablet 5 mg PO BID 08/22/21 11/15/24 Previous Rx's Medication Instructions Recorded metoprolol tartrate 100 mg tablet See Rx Instructions .Route 10/16/20 .COMPLEX #180 tabs Liners, suspension sleeves, and #1 ea 09/11/21 socks Syringes: 1cc Insulin Syringes #100 ea 11/19/22 with [place] blood sugar diagnostic (OneTouch #250 ea 10/24/23 Ultra Test strips) Glucose: Test Strips #250 ea 11/12/23 blood sugar diagnostic (OneTouch #100 ea 12/05/23 Ultra Test strips) furosemide 20 mg tablet 20 mg PO QDAY #90 tabs 12/22/23 levothyroxine 175 mcg tablet 175 mcg PO DAILY #90 tabs 12/22/23 rosuvastatin 20 mg tablet 20 mg PO BEDTIME #90 tabs 12/22/23 insulin NPH-regular 70-30 U-100 40 unit (0.4 mL) SUBCUT BID #30 mL 07/14/24 insulin 100 unit/mL subcutaneous pen (Humulin 70/30 U-100 KwikPen) losartan 25 mg tablet 25 mg PO DAILY #90 tabs 09/13/24 tamsulosin 0.4 mg capsule 0.4 mg PO QPM #90 caps 09/20/24 Allergies Allergy/AdvReac Type Severity Reaction Status Date / Time cephalexin Allergy Severe Blister Verified 11/30/24 19:59 Cephalosporins Allergy Blister Verified 11/30/24 19:59 adhesive tape [ADHESIVE TAPE] AdvReac Mild PATIENT Verified 11/30/24 19:59 STATES IT PEELS HIS SKIN OFF lisinopril [LISINOPRIL] AdvReac Mild COUGH Verified 11/30/24 19:59 prochlorperazine AdvReac Unknown Verified 11/30/24 19:59 [PROCHLORPERAZINE] shellfish derived AdvReac Unknown Verified 11/30/24 19:59 [SHELLFISH DERIVED] Review of Systems Review of Systems Narrative: Pertinent positive and negative findings as per HPI Patient History Medical History Opiate dependence Peripheral autonomic neuropathy due to diabetes mellitus Sacral back pain Diabetes, type 1.5, uncontrolled, managed as type 2 Myocardial infarct (10/17/06) Hx of drug abuse Measles (Unknown) GERD (gastroesophageal reflux disease) (Unknown) Hyperlipemia (Unknown) Obstructive sleep apnea (Unknown) Atrial fibrillation (Unknown) Hypertension (Unknown) Hepatitis C (Unknown) Peripheral vascular disease (Unknown) Carotid artery disease (Unknown) Hypothyroidism (Unknown) Erectile dysfunction (Unknown) Coronary artery disease involving coronary bypass graft of [place] heart without angina pectoris (09/11/15) Surgical History S/P bilateral BKA (below knee amputation) History of penile implant History of open reduction and internal fixation (ORIF) procedure (09/2010) Hx of coronary artery bypass surgery (10/2006) Hx of cataract surgery (~2004) S/P bilateral below knee amputation (Unknown) Family History Father Age: 89 Heart disease ETOH abuse Mother Age: 97 Heart disease Alzheimer's dementia without behavioral disturbance, Alzheimer's disease of unspecified onset Social History household members: spouse Smoking Status: Former smoker alcohol intake: current substance use type: does not use Smoking Status: Former smoker alcohol intake frequency: holidays/special occasions only Exam Initial Vital Signs Initial Vital Signs: Vital Signs Temperature 98.2 F 12/01/24 09:10 Pulse Rate 84 12/01/24 09:10 Respiratory Rate 20 12/01/24 09:10 Blood Pressure 119/65 12/01/24 09:10 Pulse Oximetry 98 12/01/24 09:10 Oxygen Delivery Method Room Air 12/01/24 09:10 General: Chronically ill-appearing, non toxic, globally weak HEENT: Moist mucous membranes, normal sclera with reactive pupils, Respiratory: Lungs are clear to auscultation, no wheezing no rales no rhonchi. Full and symmetrical air movement Cardiac: Regular rate and rhythm no murmurs no bruits Abdomen: Soft, no rebound or guarding. No flank pain Neurologic: Grossly neurologically intact with no obvious asymmetries or abnormaities, needs walker to stand for stability and significant global weakness Extremities: No trauma, 1+ bilateral lower extremity edema Psych: Cooperative, Course Orders Ordered: ED Orders 12/01/24 08:55 BNP [NT-proBNP (BNP-Adult 18+)] Stat Complete Blood Count AUTO DIFF Stat Comprehensive Metabolic Panel Stat Trop I [Troponin I] Stat 12/01/24 09:26 CT cervical spine wo con Stat CT head/brain wo con Stat Discontinued Medications Insulin Human Isoph/Insulin Regular (Insulin Nph/Reg 70-30 100 Unit/Ml 10ml Vial) 35 unit SUBCUT NOW ONE Stop: 12/01/24 10:30 Last Admin: 12/01/24 10:33 Dose: 35 unit Documented By: JOSH Co-signed By: LUPE Loperamide HCl (Loperamide 2 Mg Capsule) 4 mg PO NOW ONE Stop: 12/01/24 09:40 Last Admin: 12/01/24 09:55 Dose: 4 mg Documented By: JOSH Vital Signs Vital signs: Vital Signs - 8 hr 12/01/24 09:10 12/01/24 09:13 12/01/24 09:29 Temperature 98.2 F Pulse Rate 84 89 87 Respiratory Rate 20 Blood Pressure 119/65 Pulse Oximetry 98 98 Oxygen Delivery Method Room Air 12/01/24 09:29 12/01/24 09:30 12/01/24 10:36 Temperature Pulse Rate 94 H Respiratory Rate Blood Pressure 119/65 Pulse Oximetry 98 99 Oxygen Delivery Method 12/01/24 10:37 12/01/24 10:37 12/01/24 10:44 Temperature Pulse Rate 90 Respiratory Rate Blood Pressure 122/66 134/70 Pulse Oximetry 98 Oxygen Delivery Method 12/01/24 10:44 12/01/24 11:07 12/01/24 11:30 Temperature Pulse Rate 81 100 H 82 Respiratory Rate Blood Pressure Pulse Oximetry 97 98 98 Oxygen Delivery Method 12/01/24 11:46 12/01/24 11:46 Temperature Pulse Rate 88 Respiratory Rate Blood Pressure 149/69 H Pulse Oximetry 98 Oxygen Delivery Method Medical Decision Making Lab Data 12/01/24 08:55 12/01/24 08:55 Labs: Lab Results 12/01/24 Range/Units 08:55 WBC 8.2 (4.5-11.0) X10^3/uL RBC 4.84 (4.5-5.9) X10^6/uL Hgb 13.4 L (13.5-17.5) g/dL Hct 40.5 L (41-53) % MCV 83.6 (80-100) fL MCH 27.7 (26-34) PG MCHC 33.1 (30-36) % RDW 14.0 (11.6-14.8) % Plt Count 214 (150-400) X10^3/uL Neut % (Auto) 66.8 (50-75) % Lymph % (Auto) 21.9 L (25-40) % Marshall % (Auto) 8.3 (3-14) % Eos % (Auto) 2.6 (2-4) % Baso % (Auto) 0.4 (0-2) % Neut # (Auto) 5500 (7723-7119) /uL Lymph # (Auto) 1800 (1275-6534) /uL Marshall # (Auto) 700 (0-900) /uL Eos # (Auto) 200 (0-450) /uL Baso # (Auto) 0 (0-100) /uL Sodium 137 (137-145) mmol/L Potassium 4.3 (3.4-5.1) mmol/L Chloride 108 H (98-107) mmol/L Carbon Dioxide 21 L (22-32) mmol/L BUN 15 (9-20) mg/dL Creatinine 0.86 (0.66-1.25) mg/dL Estimated GFR > 60 (>60) mL/min BUN/Creatinine Ratio 17.4 (6-22) Glucose 225 H D (80-110) mg/dL Calcium 9.4 (8.4-10.2) mg/dL Total Bilirubin 0.9 (0.2-1.3) mg/dL AST 32 (17-59) IU/L ALT 22 (<50) IU/L Alkaline Phosphatase 107 (38-126) U/L Troponin I < 0.012 (0.01-0.034) ng/mL NT-Pro-B Natriuret Pep 1390 H (<450) pg/mL Total Protein 7.3 (6.3-8.2) g/dL Albumin 4.1 (3.5-5.0) g/dL Globulin 3.2 (1.7-4.1) g/dL Albumin/Globulin Ratio 1.3 (1.0-2.8) Point of Care Testing Glucose POC 234 Point of care testing: Point of Care Testing Glucose POC 234 MDM Narrative Medical decision making narrative: CC: Recurrent hypotensive syncope Complicating co-morbidities: Seen last night, 11 hours ago, for same complaint. Profuse watery diarrhea, continued weakness Data collected from: patient, medics Social determinants of health that may influence the patients condition: Patient lives at home with his Medical records reviewed: Note from last night for similar findings reviewed Differential considered: Orthostatic hypotension, intracranial bleed, Clostridium difficile or other bacterial diarrhea, Exam documented above, pertinent findings include: Lab Test results independently reviewed as above. Pertinent findings: Lab work from 09/15 last night shows no leukocytosis, no anemia. Chemistries are reassuring with no acute renal dysfunction, no significant electrolyte abnormalities, no anion gap Stool PCR shows no acute viral etiology. C diff, Campylobacter and Salmonella are unremarkable. COVID test was positive on November 09 and remains positive yesterday. Flu and RSV are negative Lab tests from today, CBC is unremarkable Chemistries are reassuring Mildly elevated BNP Undetectable troponin Imaging studies independently reviewed: CT scan from 130 a.m. this morning shows normal colon wall, no bowel obstruction nondistended fluid-filled small bowel. He is noted to have a right fat containing inguinal hernia with a small loop of bowel and no evidence of strangulation With his fall and persistent weakness, CT scan of the head is done that shows no intracranial hemorrhage. CT scan of the cervical spine shows no acute abnormalities Treatments: 4 mg of loperamide. Patients usual morning dose of Humulin 70 30 insulin Discussion: Patient is re-evaluated. Color is much improved he says he is felt better now than he is felt in days. We discussed his negative workup 12 hours ago and again today. Reviewed head CTs and abdominal CT scans. Discussed the stool sample that does not show bacteria or viruses as a source of his diarrhea. We did talk about his COVID test and how the PCR test can remain positive long after all of the symptoms have resolved. With shared decision-making he opted to go home. We talked about use of Imodium to help control the diarrhea. If he continues to have diarrhea recommended the follow up with his primary care physician and at some point may need colonoscopy. Currently there was no sign of intracranial bleeding, trauma from his fall this morning, he has not showing any orthostatic hypotension, no signs of infection/sepsis, CT of the abdomen does not show significant colon pathology, he does not have an acute surgical abdomen no acute renal failure. He is safe for discharge home Discharge Plan Departure Patient Disposition: Home Clinical Impression: Weakness Diarrhea Qualifiers: Diarrhea type: unspecified type Qualified Code(s): R19.7 - Diarrhea, unspecified Instructions: DI for Diarrhea and Traveler's Diarrhea -- Adult Activity Restrictions/Additional Instructions: Thank you for coming in today I am sorry that you are continuing to have this diarrhea. Between your workup last night and this morning we have done a very thorough evaluation and have not found any life-threatening abnormalities or significant abnormalities that would require hospitalization Your kidney function and liver function are normal. Your electrolytes are normal. We did CT scans of your head, cervical spine abdomen and pelvis all of which are quite reassuring. With your abdomen CT there is no significant inflammation showing up in your colon. Stool studies from last night do not show Clostridium difficile or any other viral or bacterial findings that can be treated At this point it is safe to use Imodium and you can use up to 6 pills in a 24 hour. Please make sure that you are eating and drinking as you are able to tolerate. You may find that electrolyte replacement type drinks such as Gatorade or liquid IV help keep your energy up. If you are having new findings please feel free to return to the emergency department. If you diarrhea is continuing over the next 1-2 weeks, please schedule an appointment with your primary care physician. With greater than 6 weeks of unexplained diarrhea possibility of a colonoscopy can be discussed. Prescriptions: No Action metoprolol tartrate 100 mg tablet See Rx Instructions .ROUTE .COMPLEX Qty: 180 3RF Dose Instruction: take 1 tablet by mouth twice a day Rx Instructions: 100 BID apixaban 5 mg tablet 5 mg PO BID (DME) Liners, suspension sleeves, and socks See Rx Instructions .Route .MEDSUPPLY Qty: 1 0RF Rx Instructions: As directed (DME) Syringes: 1cc Insulin Syringes with [place] 0 .Route .MEDSUPPLY Qty: 100 3RF Dose Instruction: As directed Rx Instructions: Use 1 syringe with 30x12.7 mm needle to inject insulin four times daily. (DME) OneTouch Ultra Test Strip See Rx Instructions .Route Qty: 250 5RF Rx Instructions: use one strip to test blood glucose four times daily (DME) Glucose: Test Strips See Rx Instructions .Route .MEDSUPPLY Qty: 250 6RF Dose Instruction: QID; Rx Instructions: Test blood sugar four times a day for type 2 diabetes (DME) OneTouch Ultra Test Strip See Rx Instructions .Route Qty: 100 11RF Rx Instructions: test blood sugar 4 times daily furosemide 20 mg tablet 20 mg PO QDAY Qty: 90 3RF rosuvastatin 20 mg tablet 20 mg PO BEDTIME Qty: 90 3RF Hold Instructions: Needs labs levothyroxine 175 mcg tablet 175 mcg PO DAILY Qty: 90 3RF Humulin 70/30 U-100 KwikPen 100 unit/mL (70-30) insulin pen 40 unit SUBCUT BID Qty: 30 11RF Rx Instructions: ADMINISTER 40 UNITS UNDER THE SKIN TWICE DAILY BEFORE MEALS losartan 25 mg tablet 25 mg PO DAILY Qty: 90 3RF tamsulosin 0.4 mg capsule 0.4 mg PO QPM Qty: 90 3RF Referrals: Sobia Draper DO [Primary Care Provider] - Stand Alone Forms: Patient Portal/API/Survey
--- NOTE | 2024-12-01 09:26 | DI.CT.S_ITS ---
PROCEDURE: CT CERVICAL SPINE WO CON INDICATIONS: trauma TECHNIQUE: Noncontrast 3 mm thick sections acquired from the skull base to the T4 level. Sagittal and coronal reformats were then constructed. For radiation dose reduction, the following was used: automated exposure control, adjustment of mA and/or kV according to patient size. COMPARISON: [facility], CT, CT CERVICAL SPINE WO CON, 02/04/2019, 20:15. FINDINGS: Image quality: Excellent. Bones: No fractures or dislocations. Degenerative endplate changes, dorsal disc osteophyte complex formation and bilateral uncovertebral hypertrophic changes are noted throughout cervical spine. Finding is more notably at C3-4, C5-6 and C6-7 levels causing mild central canal stenosis, no significant neural foraminal narrowing. Visualized superior ribs are intact. Soft tissues: Prevertebral soft tissues are normal in thickness. No paravertebral hematomas. No apical pneumothoraces. Median sternotomy wires are seen. IMPRESSION: No acute cervical spine fracture or dislocation. [id number] degenerative disc disease throughout cervical spine as above. Dictated by: Yadiel Alarcon M.D. on 12/01/2024 at 10:24 Approved by: Yadiel Alarcon M.D. on 12/01/2024 at 10:37
--- NOTE | 2024-12-01 09:26 | DI.CT.S_ITS ---
PROCEDURE: CT HEAD/BRAIN WO CON INDICATIONS: recurrent syncope, hit head, anticoagulated TECHNIQUE: Noncontrast 4.5 mm thick angled axial sections acquired from the foramen magnum to the vertex, with coronal and sagittal reformats. For radiation dose reduction, the following was used: automated exposure control, adjustment of mA and/or kV according to patient size. COMPARISON: [facility], CT, CT HEAD/BRAIN WO CON, 02/04/2019, 20:15. FINDINGS: Image quality: Diagnostic. CSF spaces: Basal cisterns are patent. No extra-axial fluid collections. The ventricles are symmetric in size and shape. Brain: No intracranial bleeds or masses. There is cerebral volume loss for age, with resultant ventricular and sulcal prominence. There are periventricular and deep white matter chronic small vessel ischemic changes. There is intracranial internal carotid artery atherosclerosis. Skull and face: Calvarium and visualized facial bones appear intact, without suspicious lesions. Sinuses: Visualized sinuses and mastoids are clear. IMPRESSION: No acute intracranial pathology. Dictated by: Yadiel Alarcon M.D. on 12/01/2024 at 10:38 Approved by: Yadiel Alarcon M.D. on 12/01/2024 at 10:38
[2024-12-01 09:35] LABS: Add Manual Diff / Slide Review NO; Basophils Absolute Auto 0 /uL (0-100); Basophils Percent Auto 0.4 % (0-2); Eosinophils Absolute Auto 200 /uL (0-450); Eosinophils Percent Auto 2.6 % (2-4); Hematocrit 40.5 % (41-53); Hemoglobin 13.4 g/dL (13.5-17.5); Lymphocytes Absolute Auto 1800 /uL (1100-4500); Lymphocytes Percent Auto 21.9 % (25-40); Mean Corpuscular HGB Conc 33.1 % (30-36); Mean Corpuscular Hemoglobin 27.7 PG (26-34); Mean Corpuscular Volume 83.6 fL (80-100); Monocytes Absolute Auto 700 /uL (0-900); Monocytes Percent Auto 8.3 % (3-14); Neutrophils Absolute Auto 5500 /uL (1500-7000); Neutrophils Percent Auto 66.8 % (50-75); Platelet Count 214 X10^3/uL (150-400); Red Blood Cell Count 4.84 X10^6/uL (4.5-5.9); White Blood Cell Count 8.2 X10^3/uL (4.5-11.0)
[2024-12-01 09:38] LABS: Alanine Aminotransferase 22 IU/L (<50); Albumin 4.1 g/dL (3.5-5.0); Albumin Globulin Ratio 1.3 (1.0-2.8); Alkaline Phosphatase 107 U/L (38-126); Aspartate Aminotransferase 32 IU/L (17-59); BUN Creatinine Ratio 17.4 (6-22); Bilirubin Total 0.9 mg/dL (0.2-1.3); Blood Urea Nitrogen 15 mg/dL (9-20); Calcium 9.4 mg/dL (8.4-10.2); Carbon Dioxide 21 mmol/L (22-32); Chloride 108 mmol/L (98-107); Estimated Glomerular Filt Rate > 60 mL/min (>60); Globulin 3.2 g/dL (1.7-4.1); Glucose 225 mg/dL (80-110); HEMOLYSIS < 15 (0-50); Potassium 4.3 mmol/L (3.4-5.1); Sodium 137 mmol/L (137-145); Total Protein 7.3 g/dL (6.3-8.2)
[2024-12-01 09:50] LABS: NT-proBNP (BNP-Adult 18+) 1390 pg/mL (<450); Troponin I < 0.012 ng/mL (0.01-0.034)
[2024-12-01] MEDS: LOPERAMIDE 2 MG CAPSULE 4 MG PO (09:55)
[2024-12-01] MEDS: INSULIN NPH/REG 70-30 100 UNIT/ML 10ML VIAL 35 UNIT SUBCUT (10:33)
--- NOTE | 2024-12-01 10:59 | PC.NURSE ---
Pt up to bsc with minimal stand by assistance. Denies dizzines/lighthheadedness. Denies cp. A&Ox4. Skin pink, warm & dry.
--- NOTE | 2024-12-01 12:03 | PC.NURSE ---
Pt states that he feels better than he did before, but he is still having some stomach cramping and tightness. States that he has not been up to commode for a long time.
== END 2024-12-01 13:22 | disposition home or self-care (01) ==
PROVIDERS: Emergency Provider Emergency Medicine; PCP Family Medicine
DX: R53.1 Weakness (principal); R19.7 Diarrhea, unspecified; R10.84 Generalized abdominal pain; S09.90XA Unspecified injury of head, initial encounter; Z79.01 Long term (current) use of anticoagulants; R55 Syncope and collapse
CPT/HCPCS: 70450; 72125; 80053; 82962; 83880; 84484; 85025; 96372; 99283; 99284

== ENCOUNTER → 2025-02-07 15:49 | Outpatient (CLI) | payer MEDICARE, OTHER, SELFPAY ==
[2024-03-11 11:36] VITALS: BMI 30.2
[2025-02-07 16:57] LABS: Hematocrit 39.4 % (41-53); Mean Corpuscular HGB Conc 33.2 % (30-36); Mean Corpuscular Hemoglobin 27.3 PG (26-34); Mean Corpuscular Volume 82.3 fL (80-100); Platelet Count 142 X10^3/uL (150-400); Red Blood Cell Count 4.78 X10^6/uL (4.5-5.9); Red Cell Distribution Width 14.7 % (11.6-14.8); White Blood Cell Count 5.8 X10^3/uL (4.5-11.0)
[2025-02-07 17:16] LABS: Alanine Aminotransferase 23 IU/L (<50); Albumin 4.1 g/dL (3.5-5.0); Albumin Globulin Ratio 1.4 (1.0-2.8); Alkaline Phosphatase 106 U/L (38-126); Aspartate Aminotransferase 31 IU/L (17-59); BUN Creatinine Ratio 38.2 (6-22); Bilirubin Total 0.9 mg/dL (0.2-1.3); Blood Urea Nitrogen 26 mg/dL (9-20); Calcium 9.8 mg/dL (8.4-10.2); Carbon Dioxide 26 mmol/L (22-32); Chloride 104 mmol/L (98-107); Cholesterol 92 mg/dL (140-199); Estimated Glomerular Filt Rate > 60 mL/min (>60); Globulin 2.9 g/dL (1.7-4.1); Glucose 109 mg/dL (80-110); HDL Cholesterol 44 mg/dL (40-60); HEMOLYSIS 18 (0-50); LDL Cholesterol Calculated 33 mg/dL (<100); Potassium 4.3 mmol/L (3.4-5.1); Sodium 141 mmol/L (137-145); Triglycerides 76 mg/dL (35-150)
[2025-02-07 17:47] LABS: TSH w/ Reflex to FT4 0.33 uIU/mL (0.47-4.68)
[2025-02-07 18:19] LABS: Free T4, Direct Thyroxine 1.79 ng/dL (0.78-2.19)
== END ==
PROVIDERS: PCP Family Medicine; Referring Provider Family Medicine; Visit Provider Family Medicine
DX: I48.91 Unspecified atrial fibrillation (principal); I10 Essential (primary) hypertension; R53.82 Chronic fatigue, unspecified
CPT/HCPCS: 36415; 80053; 80061; 84439; 84443; 85027

== ENCOUNTER 2025-05-15 19:46 | Emergency (ER) | payer MEDICARE, OTHER, SELFPAY ==
[2024-03-11 11:36] VITALS: BMI 30.2
[2025-05-15] VITALS (10 sets, daily range): BP systolic 157–172; BP diastolic 68–81; PULSE 67–78; RESP 18–23; TEMP 36.5; O2SAT 92–97; BMI 28.8
--- NOTE | 2025-05-15 19:58 | DI.RAD.S_ITS ---
PROCEDURE: XR KNEE RT 1TO2V INDICATIONS: Patient with below knee amputation, assess stub TECHNIQUE: 2 views of the knee were acquired. COMPARISON: [facility], , KNEE 3V RIGHT, 11/11/2016, 20:30. FINDINGS: Bones: Status post below-knee amputation. No acute fracture. No periosteal reaction or cortical erosion. Soft tissues: No joint effusion. No suspicious soft tissue calcifications. IMPRESSION: Status post below-knee amputation. No acute osseous or soft tissue abnormality. Approved by: Macie Workman M.D.,Ph.D. on 05/15/2025 at 21:38
--- NOTE | 2025-05-15 19:58 | DI.RAD.S_ITS ---
PROCEDURE: XR KNEE LT 1TO2V INDICATIONS: Patient with below knee amputation, assess stub TECHNIQUE: 2 views of the knee were acquired. COMPARISON: [facility], , KNEE 3V RIGHT, 11/11/2016, 20:30. FINDINGS: Bones: Status post amputation at the level of the proximal tibia and fibia. No fractures or dislocations. No suspicious bony lesions. Soft tissues: No joint effusion. No suspicious soft tissue calcifications. No subcutaneous gas visualized. IMPRESSION: Status post below the knee amputation. No acute osseous or soft tissue abnormality visualized. Approved by: Macie Workman M.D.,Ph.D. on 05/15/2025 at 21:37
--- NOTE | 2025-05-15 20:00 | ED_ITS ---
HPI - Extremity Problem General Chief complaint: Extremity Problem,Nontraumatic Stated complaint: possible gangrene in legs blurred vision Time Seen by Provider: 05/15/25 19:51 Source: patient Mode of arrival: Ambulatory History of Present Illness HPI Narrative: Patient is a 79-year-old male with a past medical history of diabetes, hypothyroidism, hypertension, hyperlipidemia, bilateral dpdrv-imw-afix amputations secondary to diabetes, AFib afsaneh Marcus comes into the ED from home for evaluation multiple complaints. He states that over the past several days he has noted more foul-smelling discharge to his bilateral stumps, he states that he has been in the [place] over the past several days and states that he was doing this because he was cleaning up his property. He also states that his sugars has been reading higher than normal. He states that he is insulin- dependent. He also states that over the past several days he has been having intermittent blurry vision currently not complaining of this denies any trauma falls at time of evaluation NIH of 0 no focal deficits. Related Data Home Medications ?Medication ?Instructions ?Recorded ?Confirmed apixaban 5 mg tablet 5 mg PO BID 08/22/21 5 Previous Rx's ?Medication ?Instructions ?Recorded metoprolol tartrate 100 mg tablet See Rx Instructions .Route 10/16/20 .COMPLEX #180 tabs Syringes: 1cc Insulin Syringes #100 ea 11/19/22 with [place] blood sugar diagnostic (OneTouch #250 ea 10/24/23 Ultra Test strips) losartan 25 mg tablet 25 mg PO DAILY #90 tabs 08/18 07/10 tamsulosin 0.4 mg capsule 0.4 mg PO QPM #90 caps 09/20 blood sugar diagnostic (OneTouch #250 strips 12/03/24 Ultra Test strips) rosuvastatin 20 mg tablet 20 mg PO BEDTIME #90 tabs levothyroxine 150 mcg tablet 150 mcg PO DAILY #30 tabs 02/07/25 blood sugar diagnostic (OneTouch #100 strips 03/07/25 Ultra Test strips) furosemide 20 mg tablet 20 mg PO QDAY #90 tabs 03/07 insulin NPH-regular 70-30 U-100 40 unit (0.4 mL) SUBCU T BID #45 mL 03/09/25 insulin 100 unit/mL subcutaneous pen (Novolin 70-30 FlexPen U-100 Insulin) Liners, suspension sleeves, and #10 ea 05/09/25 socks doxycycline hyclate 100 mg capsule 100 mg PO BID 7 day s #14 caps 05/15/25 ondansetron 4 mg disintegrating 4 mg PO Q8H PRN nausea and 05/15/25 tablet vomiting 5 days #15 tabs Allergies Allergy/AdvReac Type Severity Reaction Status Date / Time cephalexin AdvReac Severe Blister Verified 05/15/25 19:55 adhesive tape (ADHESIVE TAPE) AdvReac Mild PATIENT Verified 05/15/25 19:55 STATES IT PEELS HIS SKIN OFF lisinopril (LISINOPRIL) AdvReac Mild COUGH Verified 05/15/25 19:55 prochlorperazine AdvReac Unknown Verified 05/15/25 19:55 (PROCHLORPERAZINE) shellfish derived (SHELLFISH AdvReac Unknown Verified 05/15/25 19:55 DERIVED) Cephalosporins AdvReac Blister Verified 05/15/25 19:55 Review of Systems Review of Systems Narrative: General: Positive elevated glucose Denies fever, chills, weight loss HEENT: Denies headache, eye drainage, eye irritation, head trauma, sore throat, voice change Cardiovascular: Denies any chest pain, palpitations, tachycardia Respiratory: Denies any shortness of breath, cough, wheeze, stridor GI/: Denies any abdominal pain, nausea, vomiting, diarrhea, bright red blood per rectum, melanotic stools, urinary frequency, urinary retention, dysuria, hematuria MSK: Positive foul-smelling skin to lower extremities, Denies any joint pain, muscle pains, swelling Skin: Denies any rashes, lesions, discoloration Neuro: Positive blurry vision Denies any headache, lightheadedness, dizziness, fainting, weakness Psych: Denies SI/HI Patient History Medical History Opiate dependence Peripheral autonomic neuropathy due to diabetes mellitus Sacral back pain Diabetes, type 1.5, uncontrolled, managed as type 2 Myocardial infarct (10/17/06) Hx of drug abuse Measles (Unknown) GERD (gastroesophageal reflux disease) (Unknown) Hyperlipemia (Unknown) Obstructive sleep apnea (Unknown) Atrial fibrillation (Unknown) Hypertension (Unknown) Hepatitis C (Unknown) Peripheral vascular disease (Unknown) Carotid artery disease (Unknown) Hypothyroidism (Unknown) Erectile dysfunction (Unknown) Coronary artery disease involving coronary bypass graft of [place] heart without angina pectoris (09/11/15) Surgical History S/P bilateral BKA (below knee amputation) History of penile implant History of open reduction and internal fixation (ORIF) procedure (09/2010) Hx of coronary artery bypass surgery (10/2006) Hx of cataract surgery (~2004) S/P bilateral below knee amputation (Unknown) Family History Father Age: 89 Heart disease ETOH abuse Mother Age: 97 Heart disease Alzheimer's dementia without behavioral disturbance, Alzheimer's disease of unspecified onset Social History household members: spouse Smoking Status: Current some day smoker alcohol intake: current substance use type: does not use Smoking Status: Current some day smoker alcohol intake frequency: holidays/special occasions only Exam Narrative Exam Narrative: General: Cooperative, well-developed, not in acute distress HEENT: Normocephalic, atraumatic, PERRLA, normal sclera, eyelids normal Neck: Active full range of motion, atraumatic Chest: Normal to inspection, negative crepitus, no overlying erythema ecchymosis Respiratory: Normal respiratory effort, not in acute respiratory distress, clear to auscultation bilaterally negative cough, wheeze, tachypnea, rhonchi, rales Cardiology: Regular rate rhythm negative gallop, murmur, rubs GI/: No tenderness to palpation, soft, non rigid, normal to inspection, exam deferred MSK: Full active range of motion in all 4 extremities, atraumatic, no tenderness to palpation of any bony prominences, patient with bilateral [id number]-[id number] amputations, there does not appear to be any superficial abrasions cellulitis after removing stockings, neurovascularly intact Skin: No rashes or lesions noted Neuro: NIH of 0 no focal deficits Alert awake oriented x3, moves all 4 extremities spontaneously, cranial nerves intact, able to answer all questions appropriately follows commands appropriately Psych: Cooperative, negative suicidal or homicidal ideations Initial Vital Signs Initial Vital Signs: Vital Signs Pulse Oximetry 97 05/15/25 19:52 Course Orders Ordered: ED Orders 05/15/25 19:58 XR knee LT 1to2V Stat XR knee RT 1to2V Stat VBG [Venous Blood Gas] STAT 05/15/25 20:01 CT angio head and neck Stat CT head/brain wo con Stat 05/15/25 20:05 Complete Blood Count AUTO DIFF Stat Comprehensive Metabolic Panel Stat Lactate (Lactic Acid) Stat Lipase Stat MAG [Magnesium] Stat PTT Partial Thromboplastin Cuco Stat Prothrombin Time INR Stat 05/15/25 20:08 Venous Blood Gas Routine 05/15/25 20:19 Blood Culture Stat Discontinued Medications Sodium Chloride (Normal Saline 0.9%) 1,000 mls @ 1,000 mls/hr IV BOLUS ONE Stop: 05/15/25 20:57 Last Infusion: 05/15/25 22:11 Dose: Infused Documented By: Admin: 05/15/25 20:18 Dose: 1,000 mls/hr Documented By: Vital Signs Vital signs: Vital Signs - 8 hr 05/15/25 19:52 05/15/25 19:53 05/15/25 19:55 Temperature 97.7 F Pulse Rate 70 78 Respiratory Rate 18 Blood Pressure 160/79 H Pulse Oximetry 97 95 95 Oxygen Delivery Method Room Air 05/15/25 20:07 05/15/25 20:07 05/15/25 20:30 Temperature Pulse Rate 74 74 Respiratory Rate 22 23 Blood Pressure 172/72 H Pulse Oximetry 95 95 Oxygen Delivery Method 05/15/25 21:18 05/15/25 21:20 05/15/25 21:20 Temperature Pulse Rate 70 Respiratory Rate Blood Pressure 163/68 H Pulse Oximetry 92 95 Oxygen Delivery Method 05/15/25 21:30 05/15/25 21:30 Temperature Pulse Rate 75 Respiratory Rate Blood Pressure 157/72 H Pulse Oximetry 95 Oxygen Delivery Method MDM - Extremity (Nontraumatic) Differential Diagnosis Differential diagnosis: Likely cellulitis and other (Electrolyte abnormality, diabetic ulcer, DKA, hyperglycemia) Lab Data 05/15/25 20:05 05/15/25 20:05 Labs: Lab Results 05/15/25 05/15/25 Range/Units 20:05 20:08 WBC 7.8 (4.5-11.0) X10^3/uL RBC 4.88 (4.5-5.9) X10^6/uL Hgb 13.8 (13.5-17.5) g/dL Hct 40.1 L (41-53) % MCV 82.1 (80-100) fL MCH 28.2 (26-34) PG MCHC 34.4 (30-36) % RDW 15.2 H (11.6-14.8) % Plt Count 154 (150-400) X10^3/uL Neut % (Auto) 56.8 (50-75) % Lymph % (Auto) 30.8 (25-40) % [place] % (Auto) 7.8 (3-14) % Eos % (Auto) 3.6 (2-4) % Baso % (Auto) 1.0 (0-2) % Neut # (Auto) 4400 (6497-0763) /uL Lymph # (Auto) 2400 (6611-1723) /uL [place] # (Auto) 600 (0-900) /uL Eos # (Auto) 300 (0-450) /uL Baso # (Auto) 100 (0-100) /uL PT 14.2 H (9.4-12.5) SECONDS INR 1.3 (0.9-1.3) APTT 34 (25.1-36.5) SECONDS VBG pH 7.41 (7.33-7.43) VBG pCO2 44.9 L (45-50) mmHg VBG pO2 52 H (35-45) mmHg VBG HCO3 28 (24-28) mmol/L VBG Total CO2 27 (24-29) mmol/L VBG O2 Saturation 87 H (70-75) % VBG Base Excess 2.9 (0-4) mmol/L FiO2 % 21.0 % % Sodium 140 (137-145) mmol/L Potassium 4.3 (3.4-5.1) mmol/L Chloride 106 (98-107) mmol/L Carbon Dioxide 28 (22-32) mmol/L BUN 27 H (9-20) mg/dL Creatinine 0.80 (0.66-1.25) mg/dL Estimated GFR > 60 (>60) mL/min BUN/Creatinine Ratio 33.8 H (6-22) Glucose 146 H (70-99) mg/dL Lactate 0.8 (0.7-2.1) mmol/L Calcium 9.6 (8.4-10.2) mg/dL Magnesium 1.8 (1.6-2.3) mg/dL Total Bilirubin 0.7 (0.2-1.3) mg/dL AST 29 (17-59) IU/L ALT 20 (<50) IU/L Alkaline Phosphatase 123 (38-126) U/L Total Protein 7.6 (6.3-8.2) g/dL Albumin 4.3 (3.5-5.0) g/dL Globulin 3.3 (1.7-4.1) g/dL Albumin/Globulin Ratio 1.3 (1.0-2.8) Lipase 17 L (23-300) U/L Imaging Data CT scan - head: Radiologist's Impression: [address] [address] [address] Scan Report Signed Patient: Tulio Yi MR#: [id number] : 1945 Acct:[id number] Age/Sex: 79 / M Date of Service: 05/15/25 Loc: ED Accession Number: [id number] Procedure: CT head/brain wo con Ordering Provider: Maverick Ocampo D.O. PROCEDURE: CT HEAD/BRAIN WO CON INDICATIONS: blurry vision TECHNIQUE: Noncontrast 4.5 mm thick angled axial sections acquired from the foramen magnum to the vertex, with coronal and sagittal reformats. For radiation dose reduction, the following was used: automated exposure control, adjustment of mA and/or kV according to patient size. COMPARISON: [facility], CT, CT HEAD/BRAIN WO CON, 12/01/2024, 9:30. FINDINGS: Image quality: Diagnostic. CSF spaces: Basal cisterns are patent. No extra-axial fluid collections. The ventricles are symmetric in size and shape. Brain: No intracranial bleeds or mass effect. There is cerebral volume loss, with resultant ventricular and sulcal prominence. There are periventricular and deep white matter chronic small vessel ischemic changes. There is intracranial internal carotid artery atherosclerosis. Skull and face: Calvarium and visualized facial bones appear intact, without suspicious lesions. Sinuses: Visualized sinuses and mastoids are clear. IMPRESSION: No acute intracranial pathology. CTA - brain/neck: Radiologist's Impression: [address] [address] [address] Scan Report Signed Patient: Tulio Yi MR#: [id number] : 1945 Acct:[id number] Age/Sex: 79 / M Date of Service: 05/15/25 Loc: ED Accession Number: [id number] Procedure: CT angio head and neck Ordering Provider: Maverick Ocampo D.O. PROCEDURE: CT ANGIO HEAD AND NECK INDICATIONS: blurry vision TECHNIQUE: After the administration of intravenous contrast, 1 mm thick sections acquired from the aortic arch through the [place]. 3-dimensional whvfddk-ozbzxtsqm-fltaeinhyn (MIP) and/or volume rendering reformats were acquired of the central intracranial vasculature and neck separately. For radiation dose reduction, the following was used: automated exposure control, adjustment of mA and/or kV according to patient size. COMPARISON: Same-day CT head noncontrast 05/15/2025. FINDINGS: Image quality: Diagnostic. Cerebral CT Angiogram: Internal carotid arteries: No acute findings. Intracranial ICA are patent with no significant stenosis. No occlusion. No aneurysm. Anterior cerebral arteries: Unremarkable. No significant stenosis. No occlusion. No aneurysm. Middle cerebral arteries: Unremarkable. No significant stenosis. No occlusion. No aneurysm. Posterior cerebral arteries: Unremarkable. No significant stenosis. No occlusion. No aneurysm. Basilar artery: Unremarkable. No significant stenosis. No occlusion. No aneurysm. Vertebral arteries: Unremarkable as visualized. Dural venous sinuses: Unremarkable given phase of enhancement. Other: Arterial phase appearance of the brain parenchyma is unremarkable. Neck CT Angiogram: Internal carotid arteries: Unremarkable. No significant stenosis. No dissection or occlusion. Common carotid arteries: Unremarkable. No significant stenosis. No dissection or occlusion. External carotid arteries: Unremarkable. No occlusion. Vertebral arteries: Unremarkable. No significant stenosis. No dissection or occlusion. Aortic Arch and Mediastinum: Partially visualized aortic arch unremarkable without evidence of aneurysm. Origins of the great vessels unremarkable. Other: Arterial phase soft tissues of the neck and chest are unremarkable. IMPRESSION: No significant intracranial arterial abnormality is seen. No significant abnormality is seen within the arteries of the neck. Extremity x-ray #1: Radiologist's Impression: [address] [address] XRay Report Signed Patient: Tulio Yi MR#: [id number] : 1945 Acct:[id number] Age/Sex: 79 / M Date of Service: 05/15/25 Loc: ED Accession Number: [id number] Procedure: XR knee RT 1to2V Ordering Provider: Maverick Ocampo D.O. PROCEDURE: XR KNEE RT 1TO2V INDICATIONS: Patient with below knee amputation, assess stub TECHNIQUE: 2 views of the knee were acquired. COMPARISON: [facility], KNEE 3V RIGHT, 11/11/2016, 20:30. FINDINGS: Bones: Status post below-knee amputation. No acute fracture. No periosteal reaction or cortical erosion. Soft tissues: No joint effusion. No suspicious soft tissue calcifications. IMPRESSION: Status post below-knee amputation. No acute osseous or soft tissue abnormality. Extremity x-ray #2: Radiologist's Impression: [place] [address] XRay Report Signed Patient: Tulio Yi MR#: [id number] : 1945 Acct:[id number] Age/Sex: 79 / M Date of Service: 05/15/25 Loc: ED Accession Number: [id number] Procedure: XR knee LT 1to2V Ordering Provider: Maverick Ocampo D.O. PROCEDURE: XR KNEE LT 1TO2V INDICATIONS: Patient with below knee amputation, assess stub TECHNIQUE: 2 views of the knee were acquired. COMPARISON: [facility], KNEE 3V RIGHT, 11/11/2016, 20:30. FINDINGS: Bones: Status post amputation at the level of the proximal tibia and fibia. No fractures or dislocations. No suspicious bony lesions. Soft tissues: No joint effusion. No suspicious soft tissue calcifications. No subcutaneous gas visualized. IMPRESSION: Status post below the knee amputation. No acute osseous or soft tissue abnormality visualized. MDM Narrative Medical decision making narrative: Patient is a 79-year-old male with bilateral mgtez-cxw-[id number] amputations secondary to diabetes insulin-dependent, hypothyroidism hypertension hyperlipidemia AFib on Eliquis presenting for multiple complaints. He states that over the past several days he has noticed increased/foul smell to his bilateral stumps, denies any trauma or falls. On exam there does not appear to be any overlying erythema ecchymosis but there was some foul-smelling discharge noted to his lower extremity. Patient also stating that his glucose has been elevated. He has also been complaining of intermittent blurry vision over the past several days at time of evaluation not complaining of this no trauma no falls has been compliant with his medications. NIH of 0. Patient had lab work imaging performed here in the emergency department. CT scans negative for any acute findings, x-ray without any acute bony abnormalities. Patient's lab work not consistent with DKA, no leukocytosis, however given patient with some mild foul-smelling discharge to who his stumps will prophylactically treat for cellulitis 1st dose of antibiotics was given here was instructed follow up with the primary care in outpatient setting he verbalized understanding of this and agrees to being discharged home with outpatient follow up Discharge Plan Departure Patient Disposition: Home Clinical Impression: Cellulitis Instructions: DI for Cellulitis -- Adult Activity Restrictions/Additional Instructions: Please follow up with your primary care doctor Please read the discharge instructions sheet carefully and bring all papers to all doctor follow-up visits, as it may contain information that your doctor may want to see. Disease processes change and evolve, if your symptoms worsen or if you develop any new symptoms that are concerning to you please return for evaluation. Your evaluation today does not show any evidence of any life- threatening/serious illnesses requiring admission to the hospital or surgery. Please follow-up with your doctor for re-evaluation in approximately 1 day. Seek immediate medical attention for any worrisome symptoms. *If you do not have a primary care provider please contact the [facility] Resource line at [phone]. They will ask some questions about your medical history and help get you set up with a doctor in the community. Prescriptions: New doxycycline hyclate 100 mg capsule 100 mg PO BID 7 Days Qty: 14 0RF ondansetron 4 mg tablet,disintegrating 4 mg PO Q8H PRN (Reason: nausea and vomiting) 5 Days Qty: 15 0RF No Action metoprolol tartrate 100 mg tablet See Rx Instructions .ROUTE .COMPLEX Qty: 180 3RF Dose Instruction: take 1 tablet by mouth twice a day Rx Instructions: 100 BID apixaban 5 mg tablet 5 mg PO BID (DME) Syringes: 1cc Insulin Syringes with [place] 0 .Route .MEDSUPPLY Qty: 100 3RF Dose Instruction: As directed Rx Instructions: Use 1 syringe with 30x12.7 mm needle to inject insulin four times daily. (DME) OneTouch Ultra Test Strip See Rx Instructions .Route Qty: 250 5RF Rx Instructions: use one strip to test blood glucose four times daily losartan 25 mg tablet 25 mg PO DAILY Qty: 90 3RF tamsulosin 0.4 mg capsule 0.4 mg PO QPM Qty: 90 3RF (DME) OneTouch Ultra Test Strip See Rx Instructions .ROUTE .COMPLEX Qty: 250 6RF Dose Instruction: USE TO TEST BLOOD SUGAR FOUR TIMES DAILY Rx Instructions: USE TO TEST BLOOD SUGAR FOUR TIMES DAILY rosuvastatin 20 mg tablet 20 mg PO BEDTIME Qty: 90 3RF levothyroxine 150 mcg tablet 150 mcg PO DAILY Qty: 30 11RF furosemide 20 mg tablet 20 mg PO QDAY Qty: 90 3RF (DME) OneTouch Ultra Test Strip See Rx Instructions .ROUTE .COMPLEX Qty: 100 11RF Dose Instruction: USE TO TEST BLOOD GLUCOSE FOUR TIMES DAILY Rx Instructions: USE TO TEST BLOOD GLUCOSE FOUR TIMES DAILY Novolin 70-30 FlexPen U-100 100 unit/mL (70-30) insulin pen 40 unit SUBCUT BID Qty: 45 5RF (DME) Liners, suspension sleeves, and socks See Rx Instructions .Route .MEDSUPPLY Qty: 10 0RF Rx Instructions: As directed Referrals: Sobia Draper DO [Primary Care Provider, Family Practice] Stand Alone Forms: Patient Portal/API
[2025-05-15 20:12] LABS: Base Excess VBG 2.9 mmol/L (0-4); HCO3 VBG 28 mmol/L (24-28); Oxygen Saturation VBG 87 % (70-75); PCO2 VBG 44.9 mmHg (45-50); PO2 VBG 52 mmHg (35-45); Total CO2 VBG 27 mmol/L (24-29); pH VBG 7.41 (7.33-7.43)
[2025-05-15] MEDS: SODIUM CHLORIDE 0.9% 1,000 ML 1000 ML IV (20:18)
[2025-05-15 20:20] LABS: Add Manual Diff / Slide Review NO; Basophils Absolute Auto 100 /uL (0-100); Eosinophils Absolute Auto 300 /uL (0-450); Eosinophils Percent Auto 3.6 % (2-4); Hematocrit 40.1 % (41-53); Hemoglobin 13.8 g/dL (13.5-17.5); Lymphocytes Absolute Auto 2400 /uL (1100-4500); Lymphocytes Percent Auto 30.8 % (25-40); Mean Corpuscular HGB Conc 34.4 % (30-36); Mean Corpuscular Hemoglobin 28.2 PG (26-34); Mean Corpuscular Volume 82.1 fL (80-100); Monocytes Absolute Auto 600 /uL (0-900); Monocytes Percent Auto 7.8 % (3-14); Neutrophils Absolute Auto 4400 /uL (1500-7000); Neutrophils Percent Auto 56.8 % (50-75); Platelet Count 154 X10^3/uL (150-400); Red Blood Cell Count 4.88 X10^6/uL (4.5-5.9); Red Cell Distribution Width 15.2 % (11.6-14.8); White Blood Cell Count 7.8 X10^3/uL (4.5-11.0)
[2025-05-15 20:27] LABS: INR 1.3 (0.9-1.3); Prothrombin Time 14.2 SECONDS (9.4-12.5)
[2025-05-15 20:30] LABS: PTT Partial Thromboplastin Tim 34 SECONDS (25.1-36.5)
[2025-05-15 20:31] LABS: Alanine Aminotransferase 20 IU/L (<50); Albumin 4.3 g/dL (3.5-5.0); Albumin Globulin Ratio 1.3 (1.0-2.8); Alkaline Phosphatase 123 U/L (38-126); Aspartate Aminotransferase 29 IU/L (17-59); BUN Creatinine Ratio 33.8 (6-22); Bilirubin Total 0.7 mg/dL (0.2-1.3); Blood Urea Nitrogen 27 mg/dL (9-20); Calcium 9.6 mg/dL (8.4-10.2); Carbon Dioxide 28 mmol/L (22-32); Chloride 106 mmol/L (98-107); Estimated Glomerular Filt Rate > 60 mL/min (>60); Globulin 3.3 g/dL (1.7-4.1); Glucose 146 mg/dL (70-99); HEMOLYSIS < 15 (0-50); Lactate (Lactic Acid) 0.8 mmol/L (0.7-2.1); Lipase 17 U/L (23-300); Potassium 4.3 mmol/L (3.4-5.1); Sodium 140 mmol/L (137-145); Total Protein 7.6 g/dL (6.3-8.2)
[2025-05-15 20:32] LABS: Magnesium 1.8 mg/dL (1.6-2.3)
== END 2025-05-15 22:59 | disposition home or self-care (01) ==
PROVIDERS: Emergency Provider Student in an Organized Health Care Education/Training Program; PCP Family Medicine
DX: L03.116 Cellulitis of left lower limb (principal); L03.115 Cellulitis of right lower limb; E11.65 Type 2 diabetes mellitus with hyperglycemia; Z79.01 Long term (current) use of anticoagulants; Z79.4 Long term (current) use of insulin; R29.700 NIHSS score 0; H53.8 Other visual disturbances
CPT/HCPCS: 36415; 70450; 70496; 70498; 73560; 80053; 82805; 83605; 83690; 83735; 85025; 85610; 85730; 87040; 96360; 96361; 99284; Q9967

== ENCOUNTER 2025-05-25 17:23 | Emergency (ER) | payer MEDICARE, OTHER, SELFPAY ==
[2024-03-11 11:36] VITALS: BMI 30.2
[2025-05-25 17:28] VITALS: BP 189/86
[2025-05-25 17:29] VITALS: PULSE 83; O2SAT 96
[2025-05-25 17:30] VITALS: BP 189/86; PULSE 63; RESP 14; TEMP 36.4; O2SAT 96; BMI 33.0
--- NOTE | 2025-05-25 18:03 | ED.SKABFB ---
HPI - Skin/Abscess/Foreign Bdy General Chief complaint: Skin/Abscess/Foreign Body Stated complaint: Bilateral Leg pain Time Seen by Provider: 05/25/25 17:25 Source: patient Mode of arrival: Ambulatory Limitations: no limitations History of Present Illness HPI narrative: 79-year-old gentleman with a history of diabetes, hypothyroidism, hypertension, bilateral lower extremity amputations and for the last month has been running low on padding and sleeve supplies for the lower extremities. He states he has talked to his primary physician as well as his design technician called again to dig it ago and was reassured that referrals were in and supplies have been ordered and in the meantime he is having skin breakdown and increasing pain because of the skin breakdown. He comes in for help and suggestions. No fevers, no increasing erythema. He has a slightly macerated area at the base of the right stump with an approximate 1 cm in diameter ulceration that is not infected. He states he has been cleaning it daily with Hibiclens and alcohol has been getting smaller. No fevers chills or other complications. He has an area where he had had a sq Band-Aid over the inner portion of the right thigh to help with rubbing from the prosthesis because he did not have the appropriate sleeve to go under it. He has developed a mild allergic reaction from the tape from that and that was burning significantly today. That was his main incentive for coming to the emergency department Related Data Home Medications ?Medication ?Instructions ?Recorded ?Confirmed apixaban 5 mg tablet 5 mg PO BID 08/22/21 02/07/25 Previous Rx's ?Medication ?Instructions ?Recorded metoprolol tartrate 100 mg tablet See Rx Instructions .Route 10/16/20 .COMPLEX #180 tabs Syringes: 1cc Insulin Syringes #100 ea 11/19/22 with Myra blood sugar diagnostic (OneTouch #250 ea 10/24/23 Ultra Test strips) losartan 25 mg tablet 25 mg PO DAILY #90 tabs 09/13/24 tamsulosin 0.4 mg capsule 0.4 mg PO QPM #90 caps 09/20/24 blood sugar diagnostic (Advanced In V[employer] Cell TechnologiesTouch #250 strips 12/03/24 Ultra Test strips) rosuvastatin 20 mg tablet 20 mg PO BEDTIME #90 tabs 12/27/24 levothyroxine 150 mcg tablet 150 mcg PO DAILY #30 tabs 02/07/25 blood sugar diagnostic (OneTouch #100 strips 03/07/25 Ultra Test strips) furosemide 20 mg tablet 20 mg PO QDAY #90 tabs 03/07/25 insulin NPH-regular 70-30 U-100 40 unit (0.4 mL) SUBCUT BID #45 mL 03/09/25 insulin 100 unit/mL subcutaneous pen (Novolin 70-30 FlexPen U-100 Insulin) Liners, suspension sleeves, and #10 ea 05/09/25 socks Allergies Allergy/AdvReac Type Severity Reaction Status Date / Time cephalexin AdvReac Severe Blister Verified 05/25/25 17:30 adhesive tape (ADHESIVE TAPE) AdvReac Mild PATIENT Verified 05/25/25 17:30 STATES IT PEELS HIS SKIN OFF lisinopril (LISINOPRIL) AdvReac Mild COUGH Verified 05/25/25 17:30 prochlorperazine AdvReac Unknown Verified 05/25/25 17:30 (PROCHLORPERAZINE) shellfish derived (SHELLFISH AdvReac Unknown Verified 05/25/25 17:30 DERIVED) Cephalosporins AdvReac Blister Verified 05/25/25 17:30 Review of Systems Review of Systems Narrative: Pertinent positive and negative findings as per HPI Patient History Medical History Opiate dependence Peripheral autonomic neuropathy due to diabetes mellitus Sacral back pain Diabetes, type 1.5, uncontrolled, managed as type 2 Myocardial infarct (10/17/06) Hx of drug abuse Measles (Unknown) GERD (gastroesophageal reflux disease) (Unknown) Hyperlipemia (Unknown) Obstructive sleep apnea (Unknown) Atrial fibrillation (Unknown) Hypertension (Unknown) Hepatitis C (Unknown) Peripheral vascular disease (Unknown) Carotid artery disease (Unknown) Hypothyroidism (Unknown) Erectile dysfunction (Unknown) Coronary artery disease involving coronary bypass graft of [place] heart without angina pectoris (09/11/15) Surgical History S/P bilateral BKA (below knee amputation) History of penile implant History of open reduction and internal fixation (ORIF) procedure (09/2010) Hx of coronary artery bypass surgery (10/2006) Hx of cataract surgery (~2004) S/P bilateral below knee amputation (Unknown) Family History Father Age: 89 Heart disease ETOH abuse Mother Age: 97 Heart disease Alzheimer's dementia without behavioral disturbance, Alzheimer's disease of unspecified onset Social History household members: spouse alcohol intake: current substance use type: does not use alcohol intake frequency: holidays/special occasions only Exam Initial Vital Signs Initial Vital Signs: Vital Signs Blood Pressure 189/86 H 05/25/25 17:28 General: Alert appropriate in no acute distress Respiratory: Able to speak in full sentences, no obvious respiratory distress Skin: No obvious rashes, warm and dry Neurologic: Grossly intact no obvious asymmetries or abnormalities Psych: appropriate insight and affect, cooperative Extremity: Both prosthesis are removed. On the right there is an area of irritation on the medial aspect of the thigh that looks like he has reacted to tape associated with a bandage that he would use to try to protect the skin from rubbing. There is also some macerated skin with an open ulcer that does not appear to be infected in his not causing him significant pain at the base of the stump. Left stump appears to be close to his baseline Course Vital Signs Vital signs: Vital Signs - 8 hr 05/25/25 17:28 05/25/25 17:29 05/25/25 17:30 Temperature 97.6 F Pulse Rate 83 63 Respiratory Rate 14 Blood Pressure 189/86 H 189/86 H Pulse Oximetry 96 96 Oxygen Delivery Method Room Air 05/25/25 19:22 Temperature 97.8 F Pulse Rate 80 Respiratory Rate 18 Blood Pressure 135/78 Pulse Oximetry 96 Oxygen Delivery Method Room Air MDM - Skin/Abscess/Foreign Bdy Lab Data Labs: Lab Results 05/25/25 Range/Units 17:37 POC Whole Bld Glucose 121 H (70-99) mg/dL MDM Narrative Medical decision making narrative: 79-year-old gentleman with bilateral BKA, has not been able to get prosthetic supplies replaced and has been out for almost a month. Is down to 1 inner sleeve and 1 outer sleeve to share between both legs. It does sound like appropriate referrals have been initiated but supplies have not been forthcoming. Unfortunately we do not have appropriate supplies in the emergency department or immediately available after hours in central supply. We tried using some cotton and gauze padding and loosely wrapped [place] to see if we might help temporize for the time being. Suggested for the stump cleaning on the right side that he continue with a Hibiclens but stopped using the alcohol. Referral to Wound Care to help with this is initiated. Encouraged him again to call his prosthetic provider to see if they might have any temporizing supplies until the order of supplies that has been initiated becomes available. At this point there was no indication for additional imaging, studies hospitalization. The dressing supplied are minimally adequate. Did encourage him to call the wound care clinic in the morning. He is safe for discharge Discharge Plan Departure Patient Disposition: Home Clinical Impression: Pressure ulcer of right lower extremity Below-knee amputation of both lower extremities Qualifiers: Encounter type: initial encounter Qualified Code(s): S88.111A - Complete traumatic amputation at level between knee and ankle, right lower leg, initial encounter Activity Restrictions/Additional Instructions: Thank you for coming in today Regarding the burning sensation on the inner portion of your right thigh, this is an allergic reaction to the bandage with the tape that you would use earlier today. Using simple antibiotic ointment over that an avoiding using that specific bandage with a tape we will resolve this issue You need to call your design technician in the morning. Please see if they have any temporary supplies that might help until replacement supplies are available for you. Please confirm that replacement supplies have been ordered I am worried about the skin breakdown on your right stump. Do continue to watch it, keep it clean and dry and use Hibiclens to clean but stopped using the alcohol. It is not infected and we want to allow the new little baby cells to stay healthy as they are growing into the base of the wound I have initiated referrals to our wound care clinic for you. I would suggest that you call them in the morning as well at [phone]. A referral was faxed there from the emergency department last night. They may also have temporizing supplies and we will also have suggestions on helping that wound in the right stump heal If you find that you are getting worse or develop any new symptoms, please feel free to return to the emergency department for further evaluation. Prescriptions: No Action metoprolol tartrate 100 mg tablet See Rx Instructions .ROUTE .COMPLEX Qty: 180 3RF Dose Instruction: take 1 tablet by mouth twice a day Rx Instructions: 100 BID apixaban 5 mg tablet 5 mg PO BID (DME) Syringes: 1cc Insulin Syringes with Myra 0 .Route .MEDSUPPLY Qty: 100 3RF Dose Instruction: As directed Rx Instructions: Use 1 syringe with 30x12.7 mm needle to inject insulin four times daily. (DME) OneTouch Ultra Test Strip See Rx Instructions .Route Qty: 250 5RF Rx Instructions: use one strip to test blood glucose four times daily losartan 25 mg tablet 25 mg PO DAILY Qty: 90 3RF tamsulosin 0.4 mg capsule 0.4 mg PO QPM Qty: 90 3RF (DME) OneTouch Ultra Test Strip See Rx Instructions .ROUTE .COMPLEX Qty: 250 6RF Dose Instruction: USE TO TEST BLOOD SUGAR FOUR TIMES DAILY Rx Instructions: USE TO TEST BLOOD SUGAR FOUR TIMES DAILY rosuvastatin 20 mg tablet 20 mg PO BEDTIME Qty: 90 3RF levothyroxine 150 mcg tablet 150 mcg PO DAILY Qty: 30 11RF furosemide 20 mg tablet 20 mg PO QDAY Qty: 90 3RF (DME) OneTouch Ultra Test Strip See Rx Instructions .ROUTE .COMPLEX Qty: 100 11RF Dose Instruction: USE TO TEST BLOOD GLUCOSE FOUR TIMES DAILY Rx Instructions: USE TO TEST BLOOD GLUCOSE FOUR TIMES DAILY Novolin 70-30 FlexPen U-100 100 unit/mL (70-30) insulin pen 40 unit SUBCUT BID Qty: 45 5RF (DME) Liners, suspension sleeves, and socks See Rx Instructions .Route .MEDSUPPLY Qty: 10 0RF Rx Instructions: As directed Referrals: Sobia Draper DO [Primary Care Provider, Family Practice] Stand Alone Forms: Patient Portal/API
[2025-05-25 19:22] VITALS: BP 135/78; PULSE 80; RESP 18; TEMP 36.6; O2SAT 96
== END 2025-05-25 19:22 | disposition home or self-care (01) ==
PROVIDERS: Emergency Provider Family Medicine; PCP Family Medicine
DX: L89.899 Pressure ulcer of other site, unspecified stage (principal); Z89.512 Acquired absence of left leg below knee; Z89.511 Acquired absence of right leg below knee
CPT/HCPCS: 82962; 99281; 99282

== ENCOUNTER → 2025-06-06 09:11 | Outpatient (CLI) | payer MEDICARE, OTHER, SELFPAY ==
[2024-03-11 11:36] VITALS: BMI 30.2
== END ==
LOC: WC 09:12
PROVIDERS: Family Provider Family Medicine; PCP Family Medicine; Referring Provider Emergency Medicine; Visit Provider Surgery
DX: E11.628 Type 2 diabetes mellitus with other skin complications (principal); L89.893 Pressure ulcer of other site, stage 3; Z89.511 Acquired absence of right leg below knee; Z89.512 Acquired absence of left leg below knee; I73.9 Peripheral vascular disease, unspecified; E11.43 Type 2 diabetes mellitus with diabetic autonomic (poly)neuropathy; E78.5 Hyperlipidemia, unspecified; Z86.19 Personal history of other infectious and parasitic diseases; E03.9 Hypothyroidism, unspecified; F11.20 Opioid dependence, uncomplicated; I25.2 Old myocardial infarction; I48.91 Unspecified atrial fibrillation; Z95.1 Presence of aortocoronary bypass graft; I25.10 Atherosclerotic heart disease of native coronary artery without angina pectoris; I10 Essential (primary) hypertension
CPT/HCPCS: 11042; 87070; 87075; 87077; 87147; 87186; 87205; 99203; 99213

== ENCOUNTER → 2025-06-13 10:11 | Outpatient (CLI) | payer MEDICARE, OTHER, SELFPAY ==
[2024-03-11 11:36] VITALS: BMI 30.2
== END ==
LOC: WC 10:12
PROVIDERS: Family Provider Family Medicine; PCP Family Medicine; Referring Provider Family Medicine; Visit Provider Surgery
DX: L89.893 Pressure ulcer of other site, stage 3 (principal); T87.89 Other complications of amputation stump; Z89.511 Acquired absence of right leg below knee; Z89.512 Acquired absence of left leg below knee; E11.628 Type 2 diabetes mellitus with other skin complications; I73.9 Peripheral vascular disease, unspecified; I10 Essential (primary) hypertension; I48.91 Unspecified atrial fibrillation; I25.810 Atherosclerosis of coronary artery bypass graft(s) without angina pectoris; E03.9 Hypothyroidism, unspecified; Z79.01 Long term (current) use of anticoagulants; E78.5 Hyperlipidemia, unspecified; L08.89 Other specified local infections of the skin and subcutaneous tissue; E11.43 Type 2 diabetes mellitus with diabetic autonomic (poly)neuropathy
CPT/HCPCS: 11042

== ENCOUNTER 2025-06-27 10:34 | Emergency (ER) | payer MEDICARE, OTHER, SELFPAY ==
[2024-03-11 11:36] VITALS: BMI 30.2
[2025-06-27 10:51] VITALS: BP 107/52; PULSE 79; RESP 18; TEMP 37.1; O2SAT 94
--- NOTE | 2025-06-27 11:06 | PC.NURSE ---
provided turkey sandwich and apple juice.
--- NOTE | 2025-06-27 11:32 | PC.NURSE ---
patient states he feels better and wants to call his for his ride home. patient is [employer], provided phone, she is on her way.
--- NOTE | 2025-06-28 07:10 | ED.GENADULT ---
HPI - General Adult General Chief complaint: Diabetic Problem Stated complaint: blood sugar started below 36 up to 48 now Time Seen by Provider: 06/27/25 10:47 Mode of arrival: Wheelchair Related Data Home Medications ?Medication ?Instructions ?Recorded ?Confirmed apixaban 5 mg tablet 5 mg PO BID 08/22/21 02/07/25 Previous Rx's ?Medication ?Instructions ?Recorded metoprolol tartrate 100 mg tablet See Rx Instructions .Route 10/16/20 .COMPLEX #180 tabs Syringes: 1cc Insulin Syringes #100 ea 11/19/22 with [place] blood sugar diagnostic (OneTouch #250 ea 10/24/23 Ultra Test strips) losartan 25 mg tablet 25 mg PO DAILY #90 tabs 09/13/24 tamsulosin 0.4 mg capsule 0.4 mg PO QPM #90 caps 09/20/24 blood sugar diagnostic (OneTouch #250 strips 12/03/24 Ultra Test strips) rosuvastatin 20 mg tablet 20 mg PO BEDTIME #90 tabs 12/27/24 levothyroxine 150 mcg tablet 150 mcg PO DAILY #30 tabs 02/07/25 blood sugar diagnostic (OneTouch #100 strips 03/07/25 Ultra Test strips) furosemide 20 mg tablet 20 mg PO QDAY #90 tabs 03/07/25 insulin NPH-regular 70-30 U-100 40 unit (0.4 mL) SUBCUT BID #45 mL 03/09/25 insulin 100 unit/mL subcutaneous pen (Novolin 70-30 FlexPen U-100 Insulin) Liners, suspension sleeves, and #10 ea 05/09/25 socks Allergies Allergy/AdvReac Type Severity Reaction Status Date / Time doxycycline Allergy Vomiting Verified 06/27/25 10:55 cephalexin AdvReac Severe Blister Verified 05/25/25 17:30 adhesive tape (ADHESIVE TAPE) AdvReac Mild PATIENT Verified 05/25/25 17:30 STATES IT PEELS HIS SKIN OFF lisinopril (LISINOPRIL) AdvReac Mild COUGH Verified 05/25/25 17:30 prochlorperazine AdvReac Unknown Verified 05/25/25 17:30 (PROCHLORPERAZINE) shellfish derived (SHELLFISH AdvReac Unknown Verified 05/25/25 17:30 DERIVED) Cephalosporins AdvReac Blister Verified 05/25/25 17:30 Patient History Medical History Opiate dependence Peripheral autonomic neuropathy due to diabetes mellitus Sacral back pain Diabetes, type 1.5, uncontrolled, managed as type 2 Myocardial infarct (10/17/06) Hx of drug abuse Measles (Unknown) GERD (gastroesophageal reflux disease) (Unknown) Hyperlipemia (Unknown) Obstructive sleep apnea (Unknown) Atrial fibrillation (Unknown) Hypertension (Unknown) Hepatitis C (Unknown) Peripheral vascular disease (Unknown) Carotid artery disease (Unknown) Hypothyroidism (Unknown) Erectile dysfunction (Unknown) Coronary artery disease involving coronary bypass graft of [place] heart without angina pectoris (09/11/15) Surgical History S/P bilateral BKA (below knee amputation) History of penile implant History of open reduction and internal fixation (ORIF) procedure (09/2010) Hx of coronary artery bypass surgery (10/2006) Hx of cataract surgery (~2004) S/P bilateral below knee amputation (Unknown) Family History Father Age: 89 Heart disease ETOH abuse Mother Age: 97 Heart disease Alzheimer's dementia without behavioral disturbance, Alzheimer's disease of unspecified onset Social History household members: spouse alcohol intake: current substance use type: does not use alcohol intake frequency: holidays/special occasions only Exam Initial Vital Signs Initial Vital Signs: Vital Signs Temperature 98.8 F 06/27/25 10:51 Pulse Rate 79 06/27/25 10:51 Respiratory Rate 18 06/27/25 10:51 Blood Pressure 107/52 L 06/27/25 10:51 Pulse Oximetry 94 06/27/25 10:51 Oxygen Delivery Method Room Air 06/27/25 10:51 Medical Decision Making Lab Data Labs: Lab Results 06/27/25 06/27/25 Range/Units 10:52 11:22 POC Whole Bld Glucose 54 L 69 L (70-99) mg/dL Point of Care Testing Glucose POC 69 Point of care testing: Point of Care Testing Glucose POC 69 Discharge Plan Departure Patient Disposition: Left Without Being Seen Clinical Impression: Patient left before evaluation by physician Prescriptions: No Action metoprolol tartrate 100 mg tablet See Rx Instructions .ROUTE .COMPLEX Qty: 180 3RF Dose Instruction: take 1 tablet by mouth twice a day Rx Instructions: 100 BID apixaban 5 mg tablet 5 mg PO BID (DME) Syringes: 1cc Insulin Syringes with [place] 0 .Route .MEDSUPPLY Qty: 100 3RF Dose Instruction: As directed Rx Instructions: Use 1 syringe with 30x12.7 mm needle to inject insulin four times daily. (DME) OneTouch Ultra Test Strip See Rx Instructions .Route Qty: 250 5RF Rx Instructions: use one strip to test blood glucose four times daily losartan 25 mg tablet 25 mg PO DAILY Qty: 90 3RF tamsulosin 0.4 mg capsule 0.4 mg PO QPM Qty: 90 3RF (DME) OneTouch Ultra Test Strip See Rx Instructions .ROUTE .COMPLEX Qty: 250 6RF Dose Instruction: USE TO TEST BLOOD SUGAR FOUR TIMES DAILY Rx Instructions: USE TO TEST BLOOD SUGAR FOUR TIMES DAILY rosuvastatin 20 mg tablet 20 mg PO BEDTIME Qty: 90 3RF levothyroxine 150 mcg tablet 150 mcg PO DAILY Qty: 30 11RF furosemide 20 mg tablet 20 mg PO QDAY Qty: 90 3RF (DME) OneTouch Ultra Test Strip See Rx Instructions .ROUTE .COMPLEX Qty: 100 11RF Dose Instruction: USE TO TEST BLOOD GLUCOSE FOUR TIMES DAILY Rx Instructions: USE TO TEST BLOOD GLUCOSE FOUR TIMES DAILY Novolin 70-30 FlexPen U-100 100 unit/mL (70-30) insulin pen 40 unit SUBCUT BID Qty: 45 5RF (DME) Liners, suspension sleeves, and socks See Rx Instructions .Route .MEDSUPPLY Qty: 10 0RF Rx Instructions: As directed
== END 2025-06-27 11:40 | disposition left against medical advice (07) ==
PROVIDERS: Emergency Provider Family Medicine; Family Provider Family Medicine; PCP Family Medicine
DX: E11.65 Type 2 diabetes mellitus with hyperglycemia (principal)
CPT/HCPCS: 82962; 99281

== ENCOUNTER → 2025-07-21 09:23 | Outpatient (CLI) | payer MEDICARE, OTHER, SELFPAY ==
[2024-03-11 11:36] VITALS: BMI 30.2
== END ==
PROVIDERS: Family Provider Family Medicine; PCP Family Medicine; Referring Provider Family Medicine; Visit Provider Physician Assistant
DX: L89.893 Pressure ulcer of other site, stage 3 (principal); Z89.511 Acquired absence of right leg below knee; Z89.512 Acquired absence of left leg below knee; E11.628 Type 2 diabetes mellitus with other skin complications; L84 Corns and callosities; L98.8 Other specified disorders of the skin and subcutaneous tissue; E11.43 Type 2 diabetes mellitus with diabetic autonomic (poly)neuropathy; E11.51 Type 2 diabetes mellitus with diabetic peripheral angiopathy without gangrene; I48.91 Unspecified atrial fibrillation; Z79.01 Long term (current) use of anticoagulants; I25.10 Atherosclerotic heart disease of native coronary artery without angina pectoris; I10 Essential (primary) hypertension; E03.9 Hypothyroidism, unspecified; Z88.1 Allergy status to other antibiotic agents
CPT/HCPCS: 11042

== ENCOUNTER → 2025-07-22 13:55 | Outpatient (CLI) | payer MEDICARE, OTHER, SELFPAY ==
[2024-03-11 11:36] VITALS: BMI 30.2
--- NOTE | 2025-07-22 13:57 | DI.US.S_ITS ---
PROCEDURE: US ARTERIAL DUPLEX LE RT INDICATIONS: Eval arterial status non-healing wound TECHNIQUE: Color and pulse Doppler interrogation was performed of the right lower extremity arterial system, with image documentation. COMPARISON: None. FINDINGS: Common femoral artery: 92 cm/sec, with biphasic flow. Deep femoral artery: 52 cm/sec, with biphasic flow. Proximal superficial femoral artery: 78 cm/sec, with biphasic flow. Mid superficial femoral artery: 85 cm/sec, with biphasic flow. Distal superficial femoral artery: 51 cm/sec, with biphasic flow. Popliteal artery: 32 cm/sec, with biphasic flow. Posterior tibial artery: 19 cm/sec, with monophasic flow. Anterior tibial artery/dorsalis pedis: Lower extremity amputated Card-scale imaging description: Mild degree of plaque throughout the right lower extremity arterial system. Right below-knee amputation. IMPRESSION: No hemodynamically significant stenosis involving arterial system to the level of the knee. Right below-knee amputation is noted. Dictated by: Paresh Amos M.D. on 07/22/2025 at 15:37 Approved by: Paresh Amos M.D. on 07/22/2025 at 15:55
== END ==
LOC: US 13:56
PROVIDERS: Family Provider Family Medicine; PCP Family Medicine; Referring Provider Family Medicine; Visit Provider Surgery
DX: L89.893 Pressure ulcer of other site, stage 3 (principal); Z89.511 Acquired absence of right leg below knee
CPT/HCPCS: 93926

== ENCOUNTER → 2025-07-25 08:58 | Outpatient (CLI) | payer MEDICARE, OTHER, SELFPAY ==
[2024-03-11 11:36] VITALS: BMI 30.2
== END ==
LOC: WC 08:59
PROVIDERS: Family Provider Family Medicine; PCP Family Medicine; Referring Provider Family Medicine; Visit Provider Surgery
DX: L89.893 Pressure ulcer of other site, stage 3 (principal); L98.8 Other specified disorders of the skin and subcutaneous tissue; E11.628 Type 2 diabetes mellitus with other skin complications; Z89.511 Acquired absence of right leg below knee; Z89.512 Acquired absence of left leg below knee; E11.51 Type 2 diabetes mellitus with diabetic peripheral angiopathy without gangrene; E03.9 Hypothyroidism, unspecified; I48.91 Unspecified atrial fibrillation; Z79.01 Long term (current) use of anticoagulants; E11.42 Type 2 diabetes mellitus with diabetic polyneuropathy; I10 Essential (primary) hypertension; I25.810 Atherosclerosis of coronary artery bypass graft(s) without angina pectoris; Z88.1 Allergy status to other antibiotic agents
CPT/HCPCS: 99213

== ENCOUNTER 2025-07-29 19:34 | Emergency (ER) | payer MEDICARE, OTHER, SELFPAY ==
[2024-03-11 11:36] VITALS: BMI 30.2
[2025-07-29] VITALS (23 sets, daily range): BP systolic 93–154; BP diastolic 52–96; PULSE 72–91; RESP 13–24; TEMP 36.4; O2SAT 92–98; BMI 43.9
--- NOTE | 2025-07-29 19:24 | DI.RAD.S_ITS ---
PROCEDURE: XR CHEST 1V INDICATIONS: Chest Pain TECHNIQUE: One view of the chest was acquired. COMPARISON: [facility], CR, XR CHEST 2V, 11/09/2024, 13:40. FINDINGS: Surgical changes and devices: Sternal wires Lungs and pleura: Lungs are clear. No pleural effusions or pneumothorax. Mediastinum: Mediastinal contours appear normal. Heart size is normal. Bones and chest wall: No suspicious bony lesions. Overlying soft tissues appear unremarkable. IMPRESSION: No acute pulmonary process. Dictated by: Gina Valente M.D. on 07/29/2025 at 20:21 Approved by: Gina Valente M.D. on 07/29/2025 at 20:21
--- NOTE | 2025-07-29 19:30 | EKG_ITS ---
[facility] [address] [address] Test Date: 2025-07-29 Pat Name: Tulio Yi Department: [facility] Room: Gender: Male [employer]: VICKEY VARGHESE : 1945 Requested By: Order Number: [id number] Reading MD: Bora Little MD Measurements Intervals [place] Rate: 70 P: HI: QRS: 57 QRSD: 116 T: 40 QT: 394 QTc: 425 Interpretive Statements Atrial fibrillation Incomplete right bundle branch block NO SIGNIFICANT CHANGE FROM PRIOR TRACING Electronically Signed On 08-01-2025 7:46:06 PDT by Bora Little MD
[2025-07-29 19:49] LABS: Add Manual Diff / Slide Review NO; Hematocrit 42.6 % (41-53); Hemoglobin 14.7 g/dL (13.5-17.5); Lymphocytes Absolute Auto 1600 /uL (1100-4500); Mean Corpuscular HGB Conc 34.4 % (30-36); Mean Corpuscular Hemoglobin 28.6 PG (26-34); Mean Corpuscular Volume 83.0 fL (80-100); Platelet Count 226 X10^3/uL (150-400)
[2025-07-29 19:52] LABS: INR 1.3 (0.9-1.3); Prothrombin Time 14.8 SECONDS (9.4-12.5)
[2025-07-29 19:55] LABS: PTT Partial Thromboplastin Tim 37 SECONDS (25.1-36.5)
--- NOTE | 2025-07-29 19:56 | ED_ITS ---
HPI - Chest Pain General Chief Complaint: Chest Pain Stated Complaint: Chest pain Time Seen by Provider: 07/29/25 19:55 Source: patient and EMS Mode of arrival: EMS Limitations: no limitations History of Present Illness HPI narrative: Patient brought in by meds from home. Patient had substernal chest pain that relieved with nitroglycerin by EMS. Patient does have history of atrial fibrillation on anticoagulation history quadruple bypass history of hypertension hyperlipidemia. Patient seen by cardiology services with Dr. Templeton, he does not recall when his last cardiac stress test or heart catheterization was. Patient feeling much better now. No nausea diaphoresis. No shortness of breath. Related Data Home Medications ?Medication ?Instructions ?Recorded ?Confirmed apixaban 5 mg tablet 5 mg PO BID 08/22/21 5 Previous Rx's ?Medication ?Instructions ?Recorded metoprolol tartrate 100 mg tablet See Rx Instructions .Route 10/16/20 .COMPLEX #180 tabs tamsulosin 0.4 mg capsule 0.4 mg PO QPM #90 caps 09/20 rosuvastatin 20 mg tablet 20 mg PO BEDTIME #90 tabs levothyroxine 150 mcg tablet 150 mcg PO DAILY #30 tabs 02/07/25 blood sugar diagnostic (OneTouch #100 strips 03/07/25 Ultra Test strips) furosemide 20 mg tablet 20 mg PO QDAY #90 tabs 03/07 Liners, suspension sleeves, and #10 ea 05/09/25 socks losartan 25 mg tablet 25 mg PO DAILY #90 tabs 06/18 06/10 ondansetron 4 mg disintegrating 4 mg PO Q8H PRN nausea and 07/14/25 tablet vomiting #20 tabs insulin human U-100 NPH-regulr 40 unit (0.4 mL) SUBCUT BID #45 mL 07/25/25 70-30 mix 100 unit/mL subcutaneous susp (Novolin 70/30 U-100 Insulin) insulin syringe-needle U-100 1 mL #100 ea 07/25/25 30 gauge x 1/2 (Comfort EZ Insulin Syringe) Allergies Allergy/AdvReac Type Severity Reaction Status Date / Time doxycycline Allergy Vomiting Verified 06/27/25 10:55 cephalexin AdvReac Severe Blister Verified 05/25/25 17:30 adhesive tape (ADHESIVE TAPE) AdvReac Mild PATIENT Verified 05/25/25 17:30 STATES IT PEELS HIS SKIN OFF lisinopril (LISINOPRIL) AdvReac Mild COUGH Verified 05/25/25 17:30 prochlorperazine AdvReac Unknown Verified 05/25/25 17:30 (PROCHLORPERAZINE) shellfish derived (SHELLFISH AdvReac Unknown Verified 05/25/25 17:30 DERIVED) Cephalosporins AdvReac Blister Verified 05/25/25 17:30 Review of Systems Review of Systems Narrative: GENERAL: Negative chills, fatigue, malaise, fever, sweats. HEENT: Negative sinus pain, ear pain, sore throat RESPIRATORY: Negative dyspnea, cough CARDIOVASCULAR: Positive chest pain, negative palpitations GASTROINTESTINAL: Negative vomiting, nausea, abdominal pain : Negative dysuria, frequency, hematuria MUSCULOSKELETAL: Negative muscle or bony pain SKIN: Negative rash, skin lesions NEUROLOGIC: Negative weakness, numbness ROS Unobtainable: All systems reviewed & are unremarkable except as noted in HPI and below Patient History Medical History Opiate dependence Peripheral autonomic neuropathy due to diabetes mellitus Sacral back pain Diabetes, type 1.5, uncontrolled, managed as type 2 Myocardial infarct (10/17/06) Hx of drug abuse Measles (Unknown) GERD (gastroesophageal reflux disease) (Unknown) Hyperlipemia (Unknown) Obstructive sleep apnea (Unknown) Atrial fibrillation (Unknown) Hypertension (Unknown) Hepatitis C (Unknown) Peripheral vascular disease (Unknown) Carotid artery disease (Unknown) Hypothyroidism (Unknown) Erectile dysfunction (Unknown) Coronary artery disease involving coronary bypass graft of [place] heart without angina pectoris (09/11/15) Surgical History S/P bilateral BKA (below knee amputation) History of penile implant History of open reduction and internal fixation (ORIF) procedure (09/2010) Hx of coronary artery bypass surgery (10/2006) Hx of cataract surgery (~2004) S/P bilateral below knee amputation (Unknown) Family History Father Age: 89 Heart disease ETOH abuse Mother Age: 97 Heart disease Alzheimer's dementia without behavioral disturbance, Alzheimer's disease of unspecified onset Social History household members: spouse alcohol intake: current substance use type: does not use alcohol intake frequency: holidays/special occasions only Exam Narrative Exam Narrative: GENERAL: in no distress, not toxic not dyspneic HEAD: Normocephalic. EYES: Pupils equal round ENT: Mucous membranes moist. NECK: Trachea midline. CARDIOVASCULAR: Irregularly irregular rate and rhythm RESPIRATORY: Clear to auscultation. Breath sounds equal bilaterally. No wheezes, rales, or rhonchi. GASTROINTESTINAL: Abdomen soft, non-tender abdomen is soft nontender no peritoneal signs no guarding no rebound. EXTREMITIES: No gross deformities. BACK: No flank tenderness. NEURO: AOx4. Clear speech SKIN: Warm and dry PSYCH: Not anxious, is cooperative Initial Vital Signs Initial Vital Signs: Vital Signs Pulse Rate 84 07/29/25 19:27 Respiratory Rate 13 07/29/25 19:27 Pulse Oximetry 96 07/29/25 19:27 Course Orders Ordered: Discontinued Medications Aspirin (Aspirin 81 Mg Chew Tab) 324 mg PO NOW ONE Stop: 07/29/25 19:24 Last Admin: 07/29/25 19:42 Dose: Not Given Documented By: YIFAN Sodium Chloride (Normal Saline 0.9%) 500 mls @ 1,000 mls/hr IV BOLUS ONE Stop: 07/29/25 20:32 Last Infusion: 07/29/25 21:15 Dose: Infused Documented By: Admin: 07/29/25 20:10 Dose: 1,000 mls/hr Documented By: YIFAN Vital Signs Vital signs: Vital Signs - 8 hr 07/29/25 19:27 07/29/25 19:28 07/29/25 19:28 Temperature Pulse Rate 84 83 Respiratory Rate 13 15 Blood Pressure 108/56 L Pulse Oximetry 96 95 Oxygen Delivery Method 07/29/25 19:30 07/29/25 19:30 07/29/25 19:37 Temperature 97.5 F L Pulse Rate 83 87 Respiratory Rate 16 18 Blood Pressure 93/56 L 93/56 L Pulse Oximetry 96 97 Oxygen Delivery Method Room Air 07/29/25 19:40 07/29/25 19:40 07/29/25 19:50 Temperature Pulse Rate 81 77 Respiratory Rate 21 22 Blood Pressure 97/52 L Pulse Oximetry 92 94 Oxygen Delivery Method 07/29/25 19:50 07/29/25 20:00 07/29/25 20:00 Temperature Pulse Rate 75 Respiratory Rate 21 Blood Pressure 98/55 L 95/58 L Pulse Oximetry 96 Oxygen Delivery Method 07/29/25 20:11 07/29/25 20:11 07/29/25 20:42 Temperature Pulse Rate 72 86 Respiratory Rate 21 19 Blood Pressure 101/52 L Pulse Oximetry 94 Oxygen Delivery Method 07/29/25 20:44 07/29/25 20:44 07/29/25 21:00 Temperature Pulse Rate 85 91 H Respiratory Rate 19 22 Blood Pressure 154/96 H Pulse Oximetry 96 Oxygen Delivery Method Room Air 07/29/25 21:30 07/29/25 21:33 07/29/25 21:33 Temperature Pulse Rate 85 83 Respiratory Rate 20 23 Blood Pressure 143/86 H Pulse Oximetry 98 97 Oxygen Delivery Method 07/29/25 21:40 07/29/25 21:40 07/29/25 21:50 Temperature Pulse Rate 80 84 Respiratory Rate 18 23 Blood Pressure 135/62 Pulse Oximetry 97 96 Oxygen Delivery Method 07/29/25 21:50 07/29/25 22:00 07/29/25 22:00 Temperature Pulse Rate 77 Respiratory Rate 18 Blood Pressure 143/70 H 122/58 L Pulse Oximetry 95 Oxygen Delivery Method 07/29/25 22:10 07/29/25 22:10 07/29/25 22:20 Temperature Pulse Rate 80 83 Respiratory Rate 17 15 Blood Pressure 122/60 Pulse Oximetry 95 93 Oxygen Delivery Method 07/29/25 22:20 Temperature Pulse Rate Respiratory Rate Blood Pressure 106/52 L Pulse Oximetry Oxygen Delivery Method MDM - Chest Pain Lab Data 07/29/25 19:28 07/29/25 19:28 Labs: Lab Results 07/29/25 07/29/25 07/29/25 Range/Units 19:28 20:42 20:56 WBC 8.8 (4.5-11.0) X10^3/uL RBC 5.13 (4.5-5.9) X10^6/uL Hgb 14.7 (13.5-17.5) g/dL Hct 42.6 (41-53) % MCV 83.0 (80-100) fL MCH 28.6 (26-34) PG MCHC 34.4 (30-36) % RDW 14.2 (11.6-14.8) % Plt Count 226 (150-400) X10^3/uL Neut % (Auto) 72.0 (50-75) % Lymph % (Auto) 18.1 L (25-40) % [place] % (Auto) 7.5 (3-14) % Eos % (Auto) 1.8 L (2-4) % Baso % (Auto) 0.6 (0-2) % Neut # (Auto) 6300 (2684-8406) /uL Lymph # (Auto) 1600 (9467-2411) /uL [place] # (Auto) 700 (0-900) /uL Eos # (Auto) 200 (0-450) /uL Baso # (Auto) 100 (0-100) /uL PT 14.8 H (9.4-12.5) SECONDS INR 1.3 (0.9-1.3) APTT 37 H (25.1-36.5) SECONDS Sodium 140 (137-145) mmol/L Potassium 3.8 (3.4-5.1) mmol/L Chloride 98 (98-107) mmol/L Carbon Dioxide 29 (22-32) mmol/L BUN 25 H (9-20) mg/dL Creatinine 0.98 (0.66-1.25) mg/dL Estimated GFR > 60 (>60) mL/min BUN/Creatinine Ratio 25.5 H (6-22) Glucose 57 L (70-99) mg/dL POC Whole Bld Glucose 27 L* 37 L* (70-99) mg/dL Calcium 9.5 (8.4-10.2) mg/dL Magnesium 1.7 (1.6-2.3) mg/dL Total Bilirubin 1.0 (0.2-1.3) mg/dL AST 51 (17-59) IU/L ALT 35 (<50) IU/L Alkaline Phosphatase 113 (38-126) U/L Total Creatine Kinase 31 L (55-170) U/L Troponin I < 0.012 (0.01-0.034) ng/mL NT-Pro-B Natriuret Pep 729 H (<450) pg/mL Total Protein 8.4 H (6.3-8.2) g/dL Albumin 4.5 (3.5-5.0) g/dL Globulin 3.9 (1.7-4.1) g/dL Albumin/Globulin Ratio 1.2 (1.0-2.8) Lipase 10 L (23-300) U/L 07/29/25 07/29/25 Range/Units 21:10 21:32 WBC (4.5-11.0) X10^3/uL RBC (4.5-5.9) X10^6/uL Hgb (13.5-17.5) g/dL Hct (41-53) % MCV (80-100) fL MCH (26-34) PG MCHC (30-36) % RDW (11.6-14.8) % Plt Count (150-400) X10^3/uL Neut % (Auto) (50-75) % Lymph % (Auto) (25-40) % [place] % (Auto) (3-14) % Eos % (Auto) (2-4) % Baso % (Auto) (0-2) % Neut # (Auto) (7891-5964) /uL Lymph # (Auto) (0126-1992) /uL [place] # (Auto) (0-900) /uL Eos # (Auto) (0-450) /uL Baso # (Auto) (0-100) /uL PT (9.4-12.5) SECONDS INR (0.9-1.3) APTT (25.1-36.5) SECONDS Sodium (137-145) mmol/L Potassium (3.4-5.1) mmol/L Chloride (98-107) mmol/L Carbon Dioxide (22-32) mmol/L BUN (9-20) mg/dL Creatinine (0.66-1.25) mg/dL Estimated GFR (>60) mL/min BUN/Creatinine Ratio (6-22) Glucose (70-99) mg/dL POC Whole Bld Glucose 47 L 83 (70-99) mg/dL Calcium (8.4-10.2) mg/dL Magnesium (1.6-2.3) mg/dL Total Bilirubin (0.2-1.3) mg/dL AST (17-59) IU/L ALT (<50) IU/L Alkaline Phosphatase (38-126) U/L Total Creatine Kinase (55-170) U/L Troponin I (0.01-0.034) ng/mL NT-Pro-B Natriuret Pep (<450) pg/mL Total Protein (6.3-8.2) g/dL Albumin (3.5-5.0) g/dL Globulin (1.7-4.1) g/dL Albumin/Globulin Ratio (1.0-2.8) Lipase (23-300) U/L Imaging Data Chest x-ray: Radiologist's Impression: [address] [address] XRay Report Signed Patient: Tulio Yi MR#: [id number] : 1945 Acct:[id number] Age/Sex: 79 / M Date of Service: 07/29/25 Loc: ED Accession Number: [id number] Procedure: XR chest 1V Ordering Provider: Jonathan Urena MD PROCEDURE: XR CHEST 1V INDICATIONS: Chest Pain TECHNIQUE: One view of the chest was acquired. COMPARISON: [facility], , XR CHEST 2V, 11/09/2024, 13:40. FINDINGS: Surgical changes and devices: Sternal wires Lungs and pleura: Lungs are clear. No pleural effusions or pneumothorax. Mediastinum: Mediastinal contours appear normal. Heart size is normal. Bones and chest wall: No suspicious bony lesions. Overlying soft tissues appear unremarkable. IMPRESSION: No acute pulmonary process. Dictated by: Gina Valente M.D. on 07/29/2025 at 20:21 Approved by: Gina Valente M.D. on 07/29/2025 at 20:21 CT angio chest abdomen and pelvis: Radiologist's Impression: [address] [address] [address] Scan Report Signed Patient: Tulio Yi MR#: [id number] : 1945 Acct:[id number] Age/Sex: 79 / M Date of Service: 07/29/25 Loc: ED Accession Number: [id number] Procedure: CT angio chest abdomen pelvis Ordering Provider: Jonathan Urena MD PROCEDURE: CT ANGIO CHEST ABDOMEN PELVIS INDICATIONS: Chest pain abdominal pain TECHNIQUE: Precontrast 5 mm thick sections acquired from the lung apices to the iliac crests. After the administration of intravenous contrast, 2.5 mm thick sections again acquired from the lung apices to the iliac crests. Maximum intensity projection (MIP) oblique sagittal and coronal reformats were then acquired. For radiation dose reduction, the following was used: automated exposure control. COMPARISON: [facility], CT, CT ABDOMEN PELVIS W CON, 11/30/2024, 22:41. FINDINGS: Image quality: Diagnostic. AORTA: No aortic aneurysm. No acute aortic syndrome. No aortic dissection. No central pulmonary embolism. CHEST: Lower Neck: No enlarged lymph nodes. Thyroid: No thyroid nodules which require sonographic evaluation. Axillae: No enlarged lymph nodes. Chest Wall: Post median sternotomy. Lungs and Pleura: No pneumothorax or pleural effusions. Lower lung airspace opacity with subpleural sparing, similar. Bronchiectasis. A few areas of distal mucus airway plugging. Heart: Heart size is normal. Post CABG. No pericardial effusion. Thoracic Vessels: Pulmonary arteries demonstrate normal size. Mediastinum and Salma: No enlarged lymph nodes. Esophagus: No wall thickening. No hiatal hernia. ABDOMEN: Liver: No solid mass. Gallbladder: Small gallstones. Biliary ducts: No biliary dilation. Pancreas: No ductal dilation. Spleen: Size is within normal limits. Adrenal Glands: No adrenal nodules. Kidneys and Ureters: No hydronephrosis. No solid mass. No complex renal cystic lesion which requires follow up. Stomach and Bowel: Normal colonic caliber, without significant wall thickening. Normal appendix. Peritoneum: No abnormal intraperitoneal fluid. No free air. Ventral Wall: Umbilical hernia. Abdominal Nodes: No retroperitoneal or mesenteric adenopathy by size criteria. Vessels: Inferior vena cava is normal in size. PELVIS: Pelvic Organs: Prostatomegaly. Bladder: No stone. Pelvic Nodes: No enlarged lymph nodes. Miscellaneous: Fat containing left inguinal hernia. Right inguinal hernia containing bowel. Penile prosthesis. Bones: Right hip screw. Prior fracture deformities of the pubic rami. IMPRESSION: 1. No acute aortic syndrome. No aortic dissection. No central pulmonary embolism. 2. Similar mild airspace opacity at the lung bases. This could represent interstitial lung disease. Mild bronchiectasis. 3. No acute inflammatory process is identified in the abdomen or pelvis. No free fluid. 4. Right inguinal hernia containing bowel, similar. No bowel obstruction. Dictated by: Patrick Mendoza M.D. on 07/29/2025 at 21:02 Approved by: Patrick Mnedoza M.D. on 07/29/2025 at 21:20 [facility] Narrative Medical decision making narrative: Patient brought in by meds from home. Patient had substernal chest pain that relieved with nitroglycerin by EMS. Patient does have history of atrial fibrillation on anticoagulation history quadruple bypass history of hypertension hyperlipidemia. Patient seen by cardiology services with Dr. Templeton, he does not recall when his last cardiac stress test or heart catheterization was. Patient feeling much better now. No nausea diaphoresis. No shortness of breath. MDM After history and exam, CBC CMP troponin EKG CT chest abdomen pelvis angiogram normal saline Differential considered: Includes but not limited to STEMI non-STEMI any acute coronary syndrome angina aortic dissection aneurysm Medical records reviewed: January 19, 2025 cardiology office visit notes. Lab Test results independently reviewed as above. Pertinent findings: WBC 8.8 hemoglobin 14.7 INR 1.3 sodium 140 potassium 3.8 BUN 25 creatinine 0.98 GFR greater than 60 AST 51 ALT 35 troponin less than 0.012 BNP 729 Independently reviewed EKG atrial fibrillation rate 70 Imaging studies independently reviewed: Chest x-ray no acute finding CT angio chest abdomen pelvis no acute finding Consultations: 9:39 p.m.. Spoke with Cardiology [facility], on-call for patient's hoop cutter, I spoke with Dr. Alarcon, recommends transferring patient to [facility] for stress test Re-evaluations: 9:45 p.m.. Updated patient need for transfer for further workup that is not available here and for continuity of care. He agrees. 11:15 p.m.. Patient has now decided to leave against medical advice. He does not want to stay or continued evaluation observation or testing or stress test or transfer or admission. Risks of leaving against medical advice reviewed with him including heart attack permanent injury and loss of limb tissue organ reviewed with him. He is awake alert oriented x4. He desires leaving Discussion: Appropriate for transfer for continuity of care. Cardiology service has been contacted. Patient currently chest pain-free. Addendum at 11:15 p.m.. Patient has decided to leave against medical advice. Diagnosis: Chest pain Discharge Plan Departure Patient Disposition: Left Against Medical Advice Clinical Impression: Chest pain Qualifiers: Chest pain type: unspecified Qualified Code(s): R07.9 - Chest pain, unspecified Atrial fibrillation Qualifiers: Atrial fibrillation type: unspecified chronic Qualified Code(s): I48.20 - Chronic atrial fibrillation, unspecified Prescriptions: No Action metoprolol tartrate 100 mg tablet See Rx Instructions .ROUTE .COMPLEX Qty: 180 3RF Dose Instruction: take 1 tablet by mouth twice a day Rx Instructions: 100 BID apixaban 5 mg tablet 5 mg PO BID tamsulosin 0.4 mg capsule 0.4 mg PO QPM Qty: 90 3RF rosuvastatin 20 mg tablet 20 mg PO BEDTIME Qty: 90 3RF levothyroxine 150 mcg tablet 150 mcg PO DAILY Qty: 30 11RF furosemide 20 mg tablet 20 mg PO QDAY Qty: 90 3RF (DME) OneTouch Ultra Test Strip See Rx Instructions .ROUTE .COMPLEX Qty: 100 11RF Dose Instruction: USE TO TEST BLOOD GLUCOSE FOUR TIMES DAILY Rx Instructions: USE TO TEST BLOOD GLUCOSE FOUR TIMES DAILY (DME) Liners, suspension sleeves, and socks See Rx Instructions .Route .MEDSUPPLY Qty: 10 0RF Rx Instructions: As directed losartan 25 mg tablet 25 mg PO DAILY Qty: 90 2RF Novolin 70/30 U-100 Insulin 100 unit/mL (70-30) suspension 40 unit SUBCUT BID Qty: 45 5RF (DME) insulin syringe-needle U-100 [Comfort EZ Insulin Syringe] 1 mL 30 gauge x 1/2 syringe See Rx Instructions .Route Qty: 100 3RF Rx Instructions: Use 1 syringe with 30x12.7 mm needle to inject insulin four times daily. ondansetron 4 mg tablet,disintegrating 4 mg PO Q8H PRN (Reason: nausea and vomiting) Qty: 20 0RF Referrals: Sobia Draper DO [Primary Care Provider, Family Practice] Stand Alone Forms: Patient Portal/API, Against Med. Advice ([place] Citizen)
[2025-07-29 19:57] LABS: Alanine Aminotransferase 35 IU/L (<50); Albumin 4.5 g/dL (3.5-5.0); Albumin Globulin Ratio 1.2 (1.0-2.8); Alkaline Phosphatase 113 U/L (38-126); Blood Urea Nitrogen 25 mg/dL (9-20); Calcium 9.5 mg/dL (8.4-10.2); Carbon Dioxide 29 mmol/L (22-32); Chloride 98 mmol/L (98-107); Creatine Kinase 31 U/L (55-170); Estimated Glomerular Filt Rate > 60 mL/min (>60); Globulin 3.9 g/dL (1.7-4.1); Glucose 57 mg/dL (70-99); HEMOLYSIS < 15 (0-50); Lipase 10 U/L (23-300); Magnesium 1.7 mg/dL (1.6-2.3); Potassium 3.8 mmol/L (3.4-5.1); Sodium 140 mmol/L (137-145); Total Protein 8.4 g/dL (6.3-8.2)
--- NOTE | 2025-07-29 20:02 | DI.CT.S_ITS ---
PROCEDURE: CT ANGIO CHEST ABDOMEN PELVIS INDICATIONS: Chest pain abdominal pain TECHNIQUE: Precontrast 5 mm thick sections acquired from the lung apices to the iliac crests. After the administration of intravenous contrast, 2.5 mm thick sections again acquired from the lung apices to the iliac crests. Maximum intensity projection (MIP) oblique sagittal and coronal reformats were then acquired. For radiation dose reduction, the following was used: automated exposure control. COMPARISON: [facility], CT, CT ABDOMEN PELVIS W CON, 11/30/2024, 22:41. FINDINGS: Image quality: Diagnostic. AORTA: No aortic aneurysm. No acute aortic syndrome. No aortic dissection. No central pulmonary embolism. CHEST: Lower Neck: No enlarged lymph nodes. Thyroid: No thyroid nodules which require sonographic evaluation. Axillae: No enlarged lymph nodes. Chest Wall: Post median sternotomy. Lungs and Pleura: No pneumothorax or pleural effusions. Lower lung airspace opacity with subpleural sparing, similar. Bronchiectasis. A few areas of distal mucus airway plugging. Heart: Heart size is normal. Post CABG. No pericardial effusion. Thoracic Vessels: Pulmonary arteries demonstrate normal size. Mediastinum and Salma: No enlarged lymph nodes. Esophagus: No wall thickening. No hiatal hernia. ABDOMEN: Liver: No solid mass. Gallbladder: Small gallstones. Biliary ducts: No biliary dilation. Pancreas: No ductal dilation. Spleen: Size is within normal limits. Adrenal Glands: No adrenal nodules. Kidneys and Ureters: No hydronephrosis. No solid mass. No complex renal cystic lesion which requires follow up. Stomach and Bowel: Normal colonic caliber, without significant wall thickening. Normal appendix. Peritoneum: No abnormal intraperitoneal fluid. No free air. Ventral Wall: Umbilical hernia. Abdominal Nodes: No retroperitoneal or mesenteric adenopathy by size criteria. Vessels: Inferior vena cava is normal in size. PELVIS: Pelvic Organs: Prostatomegaly. Bladder: No stone. Pelvic Nodes: No enlarged lymph nodes. Miscellaneous: Fat containing left inguinal hernia. Right inguinal hernia containing bowel. Penile prosthesis. Bones: Right hip screw. Prior fracture deformities of the pubic rami. IMPRESSION: 1. No acute aortic syndrome. No aortic dissection. No central pulmonary embolism. 2. Similar mild airspace opacity at the lung bases. This could represent interstitial lung disease. Mild bronchiectasis. 3. No acute inflammatory process is identified in the abdomen or pelvis. No free fluid. 4. Right inguinal hernia containing bowel, similar. No bowel obstruction. Dictated by: Patrick Mendoza M.D. on 07/29/2025 at 21:02 Approved by: Patrick Mendoza M.D. on 07/29/2025 at 21:20
[2025-07-29 20:08] LABS: NT-proBNP (BNP-Adult 18+) 729 pg/mL (<450); Troponin I < 0.012 ng/mL (0.01-0.034)
[2025-07-29] MEDS: SODIUM CHLORIDE 0.9% 500 ML 1000 ML IV (20:10)
--- NOTE | 2025-07-29 21:05 | PC.NURSE ---
Patient returns from CT reporting dizziness and states that he thinks his blood sugar might be low, [employer] checks poc glucose and its 27, patient is alert and talking, provider Romel is aware, this RN gives the patient orange juice and crackers with peanut butter. Patient also eats turkey sandwich. Reports feeling much better.
== END 2025-07-29 23:38 | disposition left against medical advice (07) ==
PROVIDERS: Emergency Provider Emergency Medicine; Family Provider Family Medicine; PCP Family Medicine
DX: I48.20 Chronic atrial fibrillation, unspecified (principal); R07.9 Chest pain, unspecified; Z79.01 Long term (current) use of anticoagulants
CPT/HCPCS: 36415; 71045; 71275; 74174; 80053; 82550; 82962; 83690; 83735; 83880; 84484; 85025; 85610; 85730; 93005; 93010; 96360; 99284; Q9967

== ENCOUNTER → 2025-08-01 08:34 | Outpatient (CLI) | payer MEDICARE, OTHER, SELFPAY ==
[2024-03-11 11:36] VITALS: BMI 30.2
== END ==
LOC: WC 08:38
PROVIDERS: Family Provider Family Medicine; PCP Family Medicine; Referring Provider Family Medicine; Visit Provider Surgery
DX: L89.893 Pressure ulcer of other site, stage 3 (principal); E11.628 Type 2 diabetes mellitus with other skin complications; Z89.511 Acquired absence of right leg below knee; Z89.512 Acquired absence of left leg below knee; Z79.01 Long term (current) use of anticoagulants
CPT/HCPCS: 99211; 99213

== ENCOUNTER 2025-09-13 15:00 | Emergency (ER) | payer MEDICARE, OTHER, SELFPAY ==
[2024-03-11 11:36] VITALS: BMI 30.2
[2025-09-13] VITALS (10 sets, daily range): BP systolic 112–175; BP diastolic 58–93; PULSE 86–116; RESP 14–29; TEMP 36.6; O2SAT 94–97
--- NOTE | 2025-09-13 16:09 | EKG_ITS ---
[facility] [address] [place] [address] Test Date: 2025-09-13 Pat Name: Tulio Yi Department: [facility] Room: Gender: Male Credit Adjuster: : 1945 Requested By: Order Number: [id number] Reading MD: Bora Little MD Measurements Intervals [place] Rate: 96 P: GA: QRS: 50 QRSD: 102 T: 27 QT: 378 QTc: 477 Interpretive Statements Atrial fibrillation Incomplete right bundle branch block No Significant Change Electronically Signed On 09-25-2025 8:58:31 PST by Bora Little MD
[2025-09-13 16:18] LABS: Add Manual Diff / Slide Review NO; Hematocrit 42.7 % (41-53); Hemoglobin 14.6 g/dL (13.5-17.5); Lymphocytes Absolute Auto 2800 /uL (1100-4500); Mean Corpuscular HGB Conc 34.2 % (30-36); Mean Corpuscular Hemoglobin 28.4 PG (26-34); Mean Corpuscular Volume 83.2 fL (80-100); Platelet Count 178 X10^3/uL (150-400)
[2025-09-13 16:28] LABS: Alanine Aminotransferase 25 IU/L (<50); Albumin 4.4 g/dL (3.5-5.0); Albumin Globulin Ratio 1.2 (1.0-2.8); Alkaline Phosphatase 104 U/L (38-126); Blood Urea Nitrogen 29 mg/dL (9-20); Calcium 9.9 mg/dL (8.4-10.2); Carbon Dioxide 25 mmol/L (22-32); Chloride 104 mmol/L (98-107); Estimated Glomerular Filt Rate > 60 mL/min (>60); Globulin 3.6 g/dL (1.7-4.1); Glucose 49 mg/dL (70-99); HEMOLYSIS < 15 (0-50); Lipase 19 U/L (23-300); Potassium 4.3 mmol/L (3.4-5.1); Sodium 136 mmol/L (137-145); Total Protein 8.0 g/dL (6.3-8.2)
--- NOTE | 2025-09-13 18:08 | ED.ABDPAIN ---
HPI - Abdominal Pain General Chief Complaint: Abdominal Pain Stated Complaint: Hernia Time Seen by Provider: 09/13/25 15:05 Source: patient Mode of arrival: EMS History of Present Illness HPI narrative: 79-year-old male patient with a history of hypertension, IDDM, dyslipidemia, CAD, atrial fibrillation/anticoagulation, opiate use disorder and previous IV drug abuse who presents complaining of waxing and waning [id number] bilateral upper quadrant pain over the last 2 days with no nausea, vomiting or diarrhea. Good appetite and eating and drinking well. Also has a large right inguinal hernia that he thinks his getting a little larger and harder to reduce but no new pain in that area. No other complaint. Related Data Home Medications ?Medication ?Instructions ?Recorded ?Confirmed apixaban 5 mg tablet 5 mg PO BID 08/22/21 02/07/25 Previous Rx's ?Medication ?Instructions ?Recorded metoprolol tartrate 100 mg tablet See Rx Instructions .Route 10/16/20 .COMPLEX #180 tabs tamsulosin 0.4 mg capsule 0.4 mg PO QPM #90 caps 09/20/24 rosuvastatin 20 mg tablet 20 mg PO BEDTIME #90 tabs 12/27/24 levothyroxine 150 mcg tablet 150 mcg PO DAILY #30 tabs 02/07/25 blood sugar diagnostic (OneTouch #100 strips 03/07/25 Ultra Test strips) furosemide 20 mg tablet 20 mg PO QDAY #90 tabs 03/07/25 Liners, suspension sleeves, and #10 ea 05/09/25 socks losartan 25 mg tablet 25 mg PO DAILY #90 tabs 07/13/25 ondansetron 4 mg disintegrating 4 mg PO Q8H PRN nausea and 07/14/25 tablet vomiting #20 tabs insulin human U-100 NPH-regulr 40 unit (0.4 mL) SUBCUT BID #45 mL 07/25/25 70-30 mix 100 unit/mL subcutaneous susp (Novolin 70/30 U-100 Insulin) insulin syringe-needle U-100 1 mL #100 ea 07/25/25 30 gauge x 1/2 (Comfort EZ Insulin Syringe) Allergies Allergy/AdvReac Type Severity Reaction Status Date / Time doxycycline Allergy Vomiting Verified 06/27/25 10:55 cephalexin AdvReac Severe Blister Verified 05/25/25 17:30 adhesive tape (ADHESIVE TAPE) AdvReac Mild PATIENT Verified 05/25/25 17:30 STATES IT PEELS HIS SKIN OFF lisinopril (LISINOPRIL) AdvReac Mild COUGH Verified 05/25/25 17:30 prochlorperazine AdvReac Unknown Verified 05/25/25 17:30 (PROCHLORPERAZINE) shellfish derived (SHELLFISH AdvReac Unknown Verified 05/25/25 17:30 DERIVED) Cephalosporins AdvReac Blister Verified 05/25/25 17:30 Review of Systems Review of Systems ROS Unobtainable: All systems reviewed & are unremarkable except as noted in HPI and below Gastrointestinal Gastrointestinal: Reports as per HPI Genitourinary Genitourinary: Reports as per HPI Patient History Medical History Opiate dependence Peripheral autonomic neuropathy due to diabetes mellitus Sacral back pain Diabetes, type 1.5, uncontrolled, managed as type 2 Myocardial infarct (10/17/06) Hx of drug abuse Measles (Unknown) GERD (gastroesophageal reflux disease) (Unknown) Hyperlipemia (Unknown) Obstructive sleep apnea (Unknown) Atrial fibrillation (Unknown) Hypertension (Unknown) Hepatitis C (Unknown) Peripheral vascular disease (Unknown) Carotid artery disease (Unknown) Hypothyroidism (Unknown) Erectile dysfunction (Unknown) Coronary artery disease involving coronary bypass graft of [place] heart without angina pectoris (09/11/15) Surgical History S/P bilateral BKA (below knee amputation) History of penile implant History of open reduction and internal fixation (ORIF) procedure (09/2010) Hx of coronary artery bypass surgery (10/2006) Hx of cataract surgery (~2004) S/P bilateral below knee amputation (Unknown) Family History Father Age: 90 Heart disease ETOH abuse Mother Age: 98 Heart disease Alzheimer's dementia without behavioral disturbance, Alzheimer's disease of unspecified onset Social History household members: spouse alcohol intake: current substance use type: does not use alcohol intake frequency: holidays/special occasions only Exam Narrative Exam Narrative: General: Alert and conversant. No distress. Appears well nourished and well hydrated Neck: No tenderness or adenopathy. No meningismus. No JVD Lungs: Clear to auscultation with good air movement. No wheezing, rales or rhonchi. No respiratory distress Cardiac: Irregularly irregular with normal rate on initial exam with no appreciable murmur or gallop Abdomen: Soft, nontender with no distention or masses. Normal bowel sounds. No rebound or guarding Genital: Large reducible right inguinal hernia. Musculoskeletal: Exam of the extremities, axial spine and ribcage reveals no deformity, bony tenderness or swelling. Range of motion intact Neuro: Alert and oriented. Cranial nerves, motor, sensory and cerebellar all grossly intact. No focal deficit Skin: Warm and normal color. No rashes Psychological: Normal affect and interaction. No evidence of delusion or psychosis. Normal mood. Initial Vital Signs Initial Vital Signs: Vital Signs Temperature 98 F 09/13/25 15:43 Pulse Rate 94 H 09/13/25 15:43 Respiratory Rate 18 09/13/25 15:43 Blood Pressure 112/58 L 09/13/25 15:43 Pulse Oximetry 97 09/13/25 15:43 Oxygen Delivery Method Room Air 09/13/25 15:43 Course Orders Ordered: ED Orders 09/13/25 15:48 EKG-12 Lead Stat 09/13/25 16:06 Complete Blood Count AUTO DIFF Stat Comprehensive Metabolic Panel Stat Lipase Stat Discontinued Medications Ondansetron HCl (Ondansetron 4 Mg/2 Ml Inj) 4 mg IV NOW PRN PRN Reason: Nausea And Vomiting Ondansetron HCl (Ondansetron 4 Mg Odt) 4 mg PO NOW PRN PRN Reason: Nausea And Vomiting Vital Signs Vital signs: Vital Signs - 8 hr 09/13/25 15:43 09/13/25 16:37 09/13/25 17:34 Temperature 98 F Pulse Rate 94 H 116 H 92 H Respiratory Rate 18 18 Blood Pressure 112/58 L 130/62 Pulse Oximetry 97 94 94 Oxygen Delivery Method Room Air Room Air 09/13/25 18:00 09/13/25 18:00 09/13/25 18:30 Temperature Pulse Rate 91 H 91 H Respiratory Rate 14 Blood Pressure 128/69 Pulse Oximetry 95 96 Oxygen Delivery Method Room Air 09/13/25 18:30 09/13/25 19:00 09/13/25 19:00 Temperature Pulse Rate 88 Respiratory Rate 16 Blood Pressure 136/65 147/89 H Pulse Oximetry 96 Oxygen Delivery Method Room Air 09/13/25 19:30 09/13/25 19:30 09/13/25 20:00 Temperature Pulse Rate 86 100 H Respiratory Rate 14 26 H Blood Pressure 169/77 H Pulse Oximetry 96 Oxygen Delivery Method 09/13/25 20:30 09/13/25 20:34 09/13/25 20:34 Temperature Pulse Rate 102 H 108 H Respiratory Rate 29 H 26 H Blood Pressure 175/93 H Pulse Oximetry Oxygen Delivery Method MDM - Abdominal Pain Lab Data Attestation: I reviewed the patient's lab results. Lab results narrative: CBC and CMP unremarkable 09/13/25 16:06 09/13/25 16:06 Labs: Lab Results 09/13/25 09/13/25 09/13/25 Range/Units 15:59 16:06 16:42 WBC 8.7 (4.5-11.0) X10^3/uL RBC 5.13 (4.5-5.9) X10^6/uL Hgb 14.6 (13.5-17.5) g/dL Hct 42.7 (41-53) % MCV 83.2 (80-100) fL MCH 28.4 (26-34) PG MCHC 34.2 (30-36) % RDW 14.4 (11.6-14.8) % Plt Count 178 (150-400) X10^3/uL Neut % (Auto) 57.9 (50-75) % Lymph % (Auto) 31.9 (25-40) % [place] % (Auto) 7.7 (3-14) % Eos % (Auto) 1.8 L (2-4) % Baso % (Auto) 0.7 (0-2) % Neut # (Auto) 5000 (4313-4540) /uL Lymph # (Auto) 2800 (6633-1728) /uL [place] # (Auto) 700 (0-900) /uL Eos # (Auto) 200 (0-450) /uL Baso # (Auto) 100 (0-100) /uL Sodium 136 L (137-145) mmol/L Potassium 4.3 (3.4-5.1) mmol/L Chloride 104 (98-107) mmol/L Carbon Dioxide 25 (22-32) mmol/L BUN 29 H (9-20) mg/dL Creatinine 1.01 (0.66-1.25) mg/dL Estimated GFR > 60 (>60) mL/min BUN/Creatinine Ratio 28.7 H (6-22) Glucose 49 L (70-99) mg/dL POC Whole Bld Glucose 46 L 88 (70-99) mg/dL Calcium 9.9 (8.4-10.2) mg/dL Total Bilirubin 0.8 (0.2-1.3) mg/dL AST 33 (17-59) IU/L ALT 25 (<50) IU/L Alkaline Phosphatase 104 (38-126) U/L Total Protein 8.0 (6.3-8.2) g/dL Albumin 4.4 (3.5-5.0) g/dL Globulin 3.6 (1.7-4.1) g/dL Albumin/Globulin Ratio 1.2 (1.0-2.8) Lipase 19 L (23-300) U/L 09/13/25 09/13/25 09/13/25 Range/Units 20:00 20:38 20:59 WBC (4.5-11.0) X10^3/uL RBC (4.5-5.9) X10^6/uL Hgb (13.5-17.5) g/dL Hct (41-53) % MCV (80-100) fL MCH (26-34) PG MCHC (30-36) % RDW (11.6-14.8) % Plt Count (150-400) X10^3/uL Neut % (Auto) (50-75) % Lymph % (Auto) (25-40) % [place] % (Auto) (3-14) % Eos % (Auto) (2-4) % Baso % (Auto) (0-2) % Neut # (Auto) (8042-4299) /uL Lymph # (Auto) (0549-1347) /uL [place] # (Auto) (0-900) /uL Eos # (Auto) (0-450) /uL Baso # (Auto) (0-100) /uL Sodium (137-145) mmol/L Potassium (3.4-5.1) mmol/L Chloride (98-107) mmol/L Carbon Dioxide (22-32) mmol/L BUN (9-20) mg/dL Creatinine (0.66-1.25) mg/dL Estimated GFR (>60) mL/min BUN/Creatinine Ratio (6-22) Glucose (70-99) mg/dL POC Whole Bld Glucose 60 L 59 L 101 H (70-99) mg/dL Calcium (8.4-10.2) mg/dL Total Bilirubin (0.2-1.3) mg/dL AST (17-59) IU/L ALT (<50) IU/L Alkaline Phosphatase (38-126) U/L Total Protein (6.3-8.2) g/dL Albumin (3.5-5.0) g/dL Globulin (1.7-4.1) g/dL Albumin/Globulin Ratio (1.0-2.8) Lipase (23-300) U/L ECG Data Attestation: I personally reviewed and interpreted this ECG as follows: (Atrial fibrillation with a rate of 96. Incomplete RBBB. No ischemic changes) MDM Narrative Medical decision making narrative: Patient had mild upper abdominal pain off and on with negative lab work and unremarkable exam. I do not believe he needs imaging in the ER. Possible gastritis. He also has a large right inguinal hernia which is reducible and does not need attention tonight. He was advised to follow up with primary care regarding his hernia and abdominal symptoms. Return to the ER if worse. Discharge Plan Departure Patient Disposition: Home Clinical Impression: Acute upper abdominal pain, Hernia, inguinal, right Instructions: Groin Hernia -- Adult, DI for Gastritis, DI for Abdominal Pain-Adult Activity Restrictions/Additional Instructions: Plan: Hydration and supportive care. Consider [id number] omeprazole or famotidine for acid blocking. Follow up with your doctor for reassessment and possible referral to General surgery for your inguinal hernia which is currently not emergent but may need repair. Return to the ER if worse Prescriptions: No Action metoprolol tartrate 100 mg tablet See Rx Instructions .ROUTE .COMPLEX Qty: 180 3RF Dose Instruction: take 1 tablet by mouth twice a day Rx Instructions: 100 BID apixaban 5 mg tablet 5 mg PO BID tamsulosin 0.4 mg capsule 0.4 mg PO QPM Qty: 90 3RF rosuvastatin 20 mg tablet 20 mg PO BEDTIME Qty: 90 3RF levothyroxine 150 mcg tablet 150 mcg PO DAILY Qty: 30 11RF furosemide 20 mg tablet 20 mg PO QDAY Qty: 90 3RF (DME) OneTouch Ultra Test Strip See Rx Instructions .ROUTE .COMPLEX Qty: 100 11RF Dose Instruction: USE TO TEST BLOOD GLUCOSE FOUR TIMES DAILY Rx Instructions: USE TO TEST BLOOD GLUCOSE FOUR TIMES DAILY (DME) Liners, suspension sleeves, and socks See Rx Instructions .Route .MEDSUPPLY Qty: 10 0RF Rx Instructions: As directed losartan 25 mg tablet 25 mg PO DAILY Qty: 90 2RF Novolin 70/30 U-100 Insulin 100 unit/mL (70-30) suspension 40 unit SUBCUT BID Qty: 45 5RF (DME) insulin syringe-needle U-100 [Comfort EZ Insulin Syringe] 1 mL 30 gauge x 1/2 syringe See Rx Instructions .Route Qty: 100 3RF Rx Instructions: Use 1 syringe with 30x12.7 mm needle to inject insulin four times daily. ondansetron 4 mg tablet,disintegrating 4 mg PO Q8H PRN (Reason: nausea and vomiting) Qty: 20 0RF Referrals: Sobia Draper DO [Primary Care Provider, Family Practice] Stand Alone Forms: Patient Portal/API
--- NOTE | 2025-09-13 20:41 | PC.NURSE ---
Pt given snack prior to discharge. Then CBG checked: 59 Pt given additional juice and sandwich.
== END 2025-09-13 21:00 | disposition home or self-care (01) ==
PROVIDERS: Emergency Provider Emergency Medicine; Family Provider Family Medicine; PCP Family Medicine
DX: R10.10 Upper abdominal pain, unspecified (principal); K40.90 Unilateral inguinal hernia, without obstruction or gangrene, not specified as recurrent
CPT/HCPCS: 80053; 82962; 83690; 85025; 93005; 93010; 99283; 99284

== ENCOUNTER 2025-10-04 14:08 | Inpatient (IN) | payer MEDICARE, OTHER, SELFPAY ==
[2024-03-11 11:36] VITALS: BMI 30.2
[2025-10-04] VITALS (23 sets, daily range): BP systolic 124–178; BP diastolic 45–106; PULSE 64–94; RESP 17–23; TEMP 36.8; O2SAT 95–99; BMI 78.0
[2025-10-04] MEDS: CYCLOBENZAPRINE 10 MG TABLET PO ×2 (14:37→21:54)
[2025-10-04] MEDS: KETOROLAC 30 MG/ML VIAL 15 MG IV (14:37)
--- NOTE | 2025-10-04 14:55 | DI.RAD.S_ITS ---
PROCEDURE: XR LUMBAR SPINE 2-3V INDICATIONS: low back pain TECHNIQUE: 2 views of the lumbar spine were acquired. COMPARISON: [facility], CR, XR LUMBAR SPINE 2-3V, 12/04/2023, 15:24. [facility], CR, XR LUMBAR SPINE 2-3V, 10/16/2022, 9:29. FINDINGS: Bones: 5 [id number] vertebrae are present. There is normal bony alignment. No vertebral body compression fractures. No suspicious bony lesions. Mild to moderate, multilevel degenerative disc disease and lower lumbar facet arthrosis. Soft tissues: Overlying bowel gas pattern is normal. No suspicious soft tissue calcifications. IMPRESSION: Mild to moderate, multilevel degenerative disc disease and lower lumbar facet arthrosis. Dictated by: Isidoro Bond M.D. on 10/04/2025 at 15:28 Approved by: Isidoro Bond M.D. on 10/04/2025 at 15:29
--- NOTE | 2025-10-04 15:52 | PC.NURSE ---
Patient's O2 in low 80s when eyes are closed. When eyes open, O2 in high 90s. Patient has no desire to follow up or obtain treatment, provider made aware.
--- NOTE | 2025-10-04 15:57 | ED_ITS ---
HPI - Back Pain/Injury <John Beavers PA-C - Last Filed: 10/04/25 18:15> General Chief Complaint: Back Pain/Injury Stated Complaint: Low back pain for 2 days Time Seen by Provider: 10/04/25 14:22 Source: patient and EMS History of Present Illness HPI Narrative: 79-year-old male who is a double [id number]-bvjb amputee with past medical history insulin-dependent diabetes, hyperlipidemia, atrial fibrillation, hypertension, hypothyroidism, GERD presents to the ED with 2 days of spontaneous lower back pain. Patient describes the pain as spontaneous onset, right-sided. Pain does not radiate. No chest pain, shortness of breath, fever, chills, nausea, vomiting, abdominal pain, dysuria, lightheadedness, dizziness, syncope. No numbness, tingling, weakness, saddle paresthesias. Patient does have a history of lower back pain from prior injuries. No new trauma. Past history of IVDU. Patient states he had not done injection drugs in the past year. Patient also denies taking oral opioid medications. Endorses taking marijuana. Related Data Home Medications ?Medication ?Instructions ?Recorded ?Confirmed apixaban 5 mg tablet 5 mg PO BID 08/22/21 5 insulin human U-100 NPH-regulr 35 unit SUBCUT BID 09/1710/04/25 70-30 mix 100 unit/mL subcutaneous susp (Novolin 70/30 U-100 Insulin) Previous Rx's ?Medication ?Instructions ?Recorded metoprolol tartrate 100 mg tablet See Rx Instructions .Route 10/16/20 .COMPLEX #180 tabs rosuvastatin 20 mg tablet 20 mg PO BEDTIME #90 tabs levothyroxine 150 mcg tablet 150 mcg PO DAILY #30 tabs 02/07/25 blood sugar diagnostic (OneTouch #100 strips 03/07/25 Ultra Test strips) furosemide 20 mg tablet 20 mg PO QDAY #90 tabs 03/07 Liners, suspension sleeves, and #10 ea 05/09/25 socks losartan 25 mg tablet 25 mg PO DAILY #90 tabs 06/18 06/10 insulin syringe-needle U-100 1 mL #100 ea 07/25/25 30 gauge x 1/2 (Comfort EZ Insulin Syringe) tamsulosin 0.4 mg capsule 0.4 mg PO QPM #90 caps 09/14 Allergies Allergy/AdvReac Type Severity Reaction Status Date / Time doxycycline Allergy Vomiting Verified 10/04/25 14:23 cephalexin AdvReac Severe Blister Verified 10/04/25 14:23 adhesive tape (ADHESIVE TAPE) AdvReac Mild PATIENT Verified 10/04/25 14:23 STATES IT PEELS HIS SKIN OFF lisinopril (LISINOPRIL) AdvReac Mild COUGH Verified 10/04/25 14:23 prochlorperazine AdvReac Unknown Verified 10/04/25 14:23 (PROCHLORPERAZINE) shellfish derived (SHELLFISH AdvReac Unknown Verified 10/04/25 14:23 DERIVED) Cephalosporins AdvReac Blister Verified 10/04/25 14:23 Review of Systems <John Beavers PA-C - Last Filed: 10/04/25 18:15> Constitutional Constitutional: Denies chills, Denies fatigue, Denies fever(s), Denies frequent falls, Denies lethargy and Denies weakness Eyes Eyes: Denies change in vision, Denies eye discharge, Denies irritation and Denies loss of vision ENT Ears, Nose, Mouth, and Throat: Denies change in voice, Denies dizziness, Denies neck pain, Denies sore throat and Denies throat swelling Cardiovascular Cardiovascular: Denies chest pain, Denies irregular heart rhythm, Denies lightheadedness, Denies palpitations, Denies dyspnea, Denies dyspnea on exertion and Denies orthopnea Respiratory Respiratory: Denies cough, Denies dyspnea, Denies dyspnea on exertion and Denies wheezing Gastrointestinal Gastrointestinal: Denies abdominal pain, Denies change in bowel habits, Denies diarrhea, Denies nausea and Denies vomiting Musculoskeletal Musculoskeletal: Reports back pain, Denies neck pain and Denies numbness Integumentary/Breasts Skin/Breast: Denies pruritus, Denies erythema, Denies rash and Denies wounds Neurologic Neurologic: Denies behavioral changes, Denies confusion, Denies dizziness, Denies frequent falls, Denies loss of vision, Denies numbness and Denies weakness Psychiatric Psychiatric: Denies anxiety, Denies behavioral changes, Denies confusion, Denies depression, Denies homicidal ideation and Denies suicidal ideation Endocrine Endocrine: Denies fatigue, Denies flushing and Denies palpitations Hematologic/Lymphatic Hematologic/Lymphatic: Denies easy bruising Allergic/Immunologic Allergic/Immunologic: Denies urticaria, Denies throat swelling and Denies wheezing Patient History <John Beavers PA-C - Last Filed: 10/04/25 18:15> Medical History Opiate dependence Peripheral autonomic neuropathy due to diabetes mellitus Sacral back pain Diabetes, type 1.5, uncontrolled, managed as type 2 Myocardial infarct (10/17/06) Hx of drug abuse Measles (Unknown) GERD (gastroesophageal reflux disease) (Unknown) Hyperlipemia (Unknown) Obstructive sleep apnea (Unknown) Atrial fibrillation (Unknown) Hypertension (Unknown) Hepatitis C (Unknown) Peripheral vascular disease (Unknown) Carotid artery disease (Unknown) Hypothyroidism (Unknown) Erectile dysfunction (Unknown) Coronary artery disease involving coronary bypass graft of [place] heart without angina pectoris (09/11/15) Surgical History S/P bilateral BKA (below knee amputation) History of penile implant History of open reduction and internal fixation (ORIF) procedure (09/2010) Hx of coronary artery bypass surgery (10/2006) Hx of cataract surgery (~2004) S/P bilateral below knee amputation (Unknown) Family History Father Age: 90 Heart disease ETOH abuse Mother Age: 98 Heart disease Alzheimer's dementia without behavioral disturbance, Alzheimer's disease of unspecified onset Social History household members: spouse Smoking Status: Former smoker alcohol intake: current substance use type: does not use Smoking Status: Current some day smoker alcohol intake frequency: holidays/special occasions only Exam <John Beavers PA-C - Last Filed: 10/04/25 18:15> Narrative Exam Narrative: Const General:?cooperative, healthy appearing and comfortable [facility] Head:?normal to inspection Ears:?hearing grossly normal bilaterally Nose:?external nose normal Face and sinus:?normal facial exam and sinuses nontender Mouth:?oral mucosae normal Throat:?posterior oropharynx normal Eyes General:?appearance normal, both eyes and all related structures Neck Neck:?normal visual inspection and no lymphadenopathy noted Resp Effort & Inspection:?normal respiratory effort Auscultation:?clear to auscultation bilaterally Cardio Rate: irregularly regular Rhythm:?afib Musculoskeletal There some mild tenderness to palpation of the lumbar spine. Neurovascularly intact. Neuro General:?patient alert, patient awake and patient oriented x3 Initial Vital Signs Initial Vital Signs: Vital Signs Pulse Rate 88 10/04/25 14:10 Respiratory Rate 18 10/04/25 14:10 Blood Pressure 155/69 H 10/04/25 14:10 Pulse Oximetry 99 10/04/25 14:10 Oxygen Delivery Method Room Air 10/04/25 14:10 <Malathi Fraser DO - Last Filed: 10/04/25 23:15> Initial Vital Signs Initial Vital Signs: Vital Signs Pulse Rate 88 10/04/25 14:10 Respiratory Rate 18 10/04/25 14:10 Blood Pressure 155/69 H 10/04/25 14:10 Pulse Oximetry 99 10/04/25 14:10 Oxygen Delivery Method Room Air 10/04/25 14:10 Course <John Beavers PA-C - Last Filed: 10/04/25 18:15> Orders Ordered: ED Orders 10/04/25 14:55 XR lumbar spine 2-3V Stat 10/04/25 16:09 XR chest 1V Stat EKG-12 Lead Stat 10/04/25 16:32 Complete Blood Count AUTO DIFF Stat Comprehensive Metabolic Panel Stat Lipase Stat Magnesium Stat NT-proBNP (BNP-Adult 18+) Stat PTT Partial Thromboplastin Cuco Stat Prothrombin Time INR Stat Troponin & CK Cardiac Panel Stat 10/04/25 16:47 Urine Drug Screen, Rapid Stat Apixaban (Apixaban 5 Mg Tablet) 5 mg PO BID [facility] Last Admin: 10/04/25 20:50 Dose: 5 mg Documented By: VAMSI Atorvastatin Calcium (Atorvastatin 20 Mg Tablet) 40 mg PO BEDTIME [facility] Last Admin: 10/04/25 20:50 Dose: 40 mg Documented By: VAMSI Furosemide (Furosemide 40 Mg/4 Ml Vial) 40 mg IV Q12HR [facility] Dextrose (D10w) 100 mls @ 1,200 mls/hr IV PRN PRN PRN Reason: Hypoglycemia Insulin Human Lispro (Insulin Lispro 100 Unit/Ml 3ml Vial) 0 unit SUBCUT ACHS [facility]; Protocol Last Admin: 10/04/25 21:53 Dose: 2 unit Documented By: VAMSI Co-signed By: JAQUI Insulin Human NPH (Insulin Nph 100 Unit/Ml 10ml Vial) 25 unit SUBCUT BID [facility] Last Admin: 10/04/25 21:54 Dose: 25 unit Documented By: VAMSI Co-signed By: JAQUI Levothyroxine Sodium (Levothyroxine 75 Mcg Tablet) 150 mcg PO 0600 [facility] Losartan Potassium (Losartan 25 Mg Tablet) 25 mg PO DAILY [facility] Metoprolol Tartrate (Metoprolol Ir 50 Mg Tablet) 100 mg PO BID [facility] Last Admin: 10/04/25 20:50 Dose: 100 mg Documented By: VAMSI Naloxone HCl (Naloxone 0.4 Mg/Ml Vial) 0.2 mg IV Q2MIN PRN PRN Reason: Opiate Reversal Ondansetron HCl (Ondansetron 4 Mg Odt) 4 mg PO Q8H PRN PRN Reason: Nausea And Vomiting Oxycodone HCl (Oxycodone Ir 5 Mg Tablet) 5 mg PO Q3H PRN PRN Reason: Pain, Moderate (4-6) Tamsulosin HCl (Tamsulosin 0.4 Mg Capsule) 0.4 mg PO BEDTIME [facility] Discontinued Medications Cyclobenzaprine HCl (Cyclobenzaprine 10 Mg Tablet) 10 mg PO NOW ONE Stop: 10/04/25 14:23 Last Admin: 10/04/25 14:37 Dose: 10 mg Documented By: MADYSON Cyclobenzaprine HCl (Cyclobenzaprine 10 Mg Tablet) 10 mg PO NOW ONE Stop: 10/04/25 21:27 Last Admin: 10/04/25 21:54 Dose: 10 mg Documented By: VAMSI Furosemide (Furosemide 40 Mg/4 Ml Vial) 40 mg IV NOW ONE Stop: 10/04/25 17:47 Last Admin: 10/04/25 17:53 Dose: 40 mg Documented By: ARTHUR Ketorolac Tromethamine (Ketorolac 30 Mg/Ml Vial) 15 mg IV NOW ONE Stop: 10/04/25 14:23 Last Admin: 10/04/25 14:37 Dose: 15 mg Documented By: MADYSON Metoprolol Tartrate (Metoprolol Ir 50 Mg Tablet) 0 mg PO .COMPLEX [facility] Vital Signs Vital signs: Vital Signs - 8 hr 10/04/25 15:15 10/04/25 15:15 10/04/25 15:30 Pulse Rate 74 Respiratory Rate Blood Pressure 160/86 H 178/84 H Pulse Oximetry 99 Oxygen Delivery Method Oxygen Flow Rate 10/04/25 15:30 10/04/25 16:00 10/04/25 16:01 Pulse Rate 72 77 77 Respiratory Rate Blood Pressure Pulse Oximetry 97 95 96 Oxygen Delivery Method Oxygen Flow Rate 10/04/25 16:05 10/04/25 16:05 10/04/25 16:10 Pulse Rate 65 Respiratory Rate Blood Pressure 167/74 H Pulse Oximetry 98 99 Oxygen Delivery Method Nasal Cannula Nasal Cannula Oxygen Flow Rate 2 10/04/25 16:27 10/04/25 16:27 10/04/25 16:30 Pulse Rate 76 74 Respiratory Rate Blood Pressure 142/62 H Pulse Oximetry 99 99 Oxygen Delivery Method Oxygen Flow Rate 10/04/25 16:35 10/04/25 16:35 10/04/25 17:00 Pulse Rate 64 77 Respiratory Rate 22 Blood Pressure 156/67 H Pulse Oximetry 99 97 Oxygen Delivery Method Oxygen Flow Rate 10/04/25 17:01 10/04/25 17:01 10/04/25 17:30 Pulse Rate 76 84 Respiratory Rate 17 22 Blood Pressure 171/86 H Pulse Oximetry 97 98 Oxygen Delivery Method Oxygen Flow Rate 10/04/25 17:31 10/04/25 17:31 10/04/25 18:00 Pulse Rate 89 87 Respiratory Rate 20 23 Blood Pressure 139/67 Pulse Oximetry 98 97 Oxygen Delivery Method Oxygen Flow Rate 10/04/25 18:00 Pulse Rate Respiratory Rate Blood Pressure 136/61 Pulse Oximetry Oxygen Delivery Method Oxygen Flow Rate <Malathi Fraser, DO - Last Filed: 10/04/25 23:15> Orders Ordered: ED Orders 10/04/25 14:55 XR lumbar spine 2-3V Stat 10/04/25 16:09 XR chest 1V Stat EKG-12 Lead Stat 10/04/25 16:32 Complete Blood Count AUTO DIFF Stat Comprehensive Metabolic Panel Stat Lipase Stat Magnesium Stat NT-proBNP (BNP-Adult 18+) Stat PTT Partial Thromboplastin Cuco Stat Prothrombin Time INR Stat Troponin & CK Cardiac Panel Stat 10/04/25 16:47 Urine Drug Screen, Rapid Stat Apixaban (Apixaban 5 Mg Tablet) 5 mg PO BID [facility] Last Admin: 10/04/25 20:50 Dose: 5 mg Documented By: VAMSI Atorvastatin Calcium (Atorvastatin 20 Mg Tablet) 40 mg PO BEDTIME [facility] Last Admin: 10/04/25 20:50 Dose: 40 mg Documented By: AH Furosemide (Furosemide 40 Mg/4 Ml Vial) 40 mg IV Q12HR [facility] Dextrose (D10w) 100 mls @ 1,200 mls/hr IV PRN PRN PRN Reason: Hypoglycemia Insulin Human Lispro (Insulin Lispro 100 Unit/Ml 3ml Vial) 0 unit SUBCUT ACHS [facility]; Protocol Last Admin: 10/04/25 21:53 Dose: 2 unit Documented By: VAMSI Co-signed By: JAQUI Insulin Human NPH (Insulin Nph 100 Unit/Ml 10ml Vial) 25 unit SUBCUT BID [facility] Last Admin: 10/04/25 21:54 Dose: 25 unit Documented By: VAMSI Co-signed By: JAQUI Levothyroxine Sodium (Levothyroxine 75 Mcg Tablet) 150 mcg PO 0600 [facility] Losartan Potassium (Losartan 25 Mg Tablet) 25 mg PO DAILY [facility] Metoprolol Tartrate (Metoprolol Ir 50 Mg Tablet) 100 mg PO BID [facility] Last Admin: 10/04/25 20:50 Dose: 100 mg Documented By: VAMSI Naloxone HCl (Naloxone 0.4 Mg/Ml Vial) 0.2 mg IV Q2MIN PRN PRN Reason: Opiate Reversal Ondansetron HCl (Ondansetron 4 Mg Odt) 4 mg PO Q8H PRN PRN Reason: Nausea And Vomiting Oxycodone HCl (Oxycodone Ir 5 Mg Tablet) 5 mg PO Q3H PRN PRN Reason: Pain, Moderate (4-6) Tamsulosin HCl (Tamsulosin 0.4 Mg Capsule) 0.4 mg PO BEDTIME [facility] Discontinued Medications Cyclobenzaprine HCl (Cyclobenzaprine 10 Mg Tablet) 10 mg PO NOW ONE Stop: 10/04/25 14:23 Last Admin: 10/04/25 14:37 Dose: 10 mg Documented By: SB Cyclobenzaprine HCl (Cyclobenzaprine 10 Mg Tablet) 10 mg PO NOW ONE Stop: 10/04/25 21:27 Last Admin: 10/04/25 21:54 Dose: 10 mg Documented By: AH Furosemide (Furosemide 40 Mg/4 Ml Vial) 40 mg IV NOW ONE Stop: 10/04/25 17:47 Last Admin: 10/04/25 17:53 Dose: 40 mg Documented By: BZ Ketorolac Tromethamine (Ketorolac 30 Mg/Ml Vial) 15 mg IV NOW ONE Stop: 10/04/25 14:23 Last Admin: 10/04/25 14:37 Dose: 15 mg Documented By: SB Metoprolol Tartrate (Metoprolol Ir 50 Mg Tablet) 0 mg PO .COMPLEX [facility] Vital Signs Vital signs: Vital Signs - 8 hr 10/04/25 15:15 10/04/25 15:15 10/04/25 15:30 Pulse Rate 74 Respiratory Rate Blood Pressure 160/86 H 178/84 H Pulse Oximetry 99 Oxygen Delivery Method Oxygen Flow Rate 10/04/25 15:30 10/04/25 16:00 10/04/25 16:01 Pulse Rate 72 77 77 Respiratory Rate Blood Pressure Pulse Oximetry 97 95 96 Oxygen Delivery Method Oxygen Flow Rate 10/04/25 16:05 10/04/25 16:05 10/04/25 16:10 Pulse Rate 65 Respiratory Rate Blood Pressure 167/74 H Pulse Oximetry 98 99 Oxygen Delivery Method Nasal Cannula Nasal Cannula Oxygen Flow Rate 2 10/04/25 16:27 10/04/25 16:27 10/04/25 16:30 Pulse Rate 76 74 Respiratory Rate Blood Pressure 142/62 H Pulse Oximetry 99 99 Oxygen Delivery Method Oxygen Flow Rate 10/04/25 16:35 10/04/25 16:35 10/04/25 17:00 Pulse Rate 64 77 Respiratory Rate 22 Blood Pressure 156/67 H Pulse Oximetry 99 97 Oxygen Delivery Method Oxygen Flow Rate 10/04/25 17:01 10/04/25 17:01 10/04/25 17:30 Pulse Rate 76 84 Respiratory Rate 17 22 Blood Pressure 171/86 H Pulse Oximetry 97 98 Oxygen Delivery Method Oxygen Flow Rate 10/04/25 17:31 10/04/25 17:31 10/04/25 18:00 Pulse Rate 89 87 Respiratory Rate 20 23 Blood Pressure 139/67 Pulse Oximetry 98 97 Oxygen Delivery Method Oxygen Flow Rate 10/04/25 18:00 Pulse Rate Respiratory Rate Blood Pressure 136/61 Pulse Oximetry Oxygen Delivery Method Oxygen Flow Rate MDM - Back Pain/Injury <John Beavers PA-C - Last Filed: 10/04/25 18:15> Lab Data 10/04/25 16:32 10/04/25 16:32 Labs: Lab Results 10/04/25 10/04/25 10/04/25 Range/Units 16:30 16:32 16:47 WBC 6.9 (4.5-11.0) X10^3/uL RBC 4.27 L (4.5-5.9) X10^6/uL Hgb 12.0 L (13.5-17.5) g/dL Hct 35.3 L (41-53) % MCV 82.6 (80-100) fL MCH 28.2 (26-34) PG MCHC 34.1 (30-36) % RDW 14.1 (11.6-14.8) % Plt Count 130 L (150-400) X10^3/uL Neut % (Auto) 60.7 (50-75) % Lymph % (Auto) 25.9 (25-40) % [place] % (Auto) 11.1 (3-14) % Eos % (Auto) 1.5 L (2-4) % Baso % (Auto) 0.8 (0-2) % Neut # (Auto) 4200 (7939-7473) /uL Lymph # (Auto) 1800 (2902-1641) /uL [place] # (Auto) 800 (0-900) /uL Eos # (Auto) 100 (0-450) /uL Baso # (Auto) 100 (0-100) /uL PT 17.7 H (9.4-12.5) SECONDS INR 1.6 H (0.9-1.3) APTT 34 (25.1-36.5) SECONDS Sodium 139 (137-145) mmol/L Potassium 3.9 (3.4-5.1) mmol/L Chloride 105 (98-107) mmol/L Carbon Dioxide 25 (22-32) mmol/L BUN 24 H (9-20) mg/dL Creatinine 0.89 (0.66-1.25) mg/dL Estimated GFR > 60 (>60) mL/min BUN/Creatinine Ratio 27.0 H (6-22) Glucose 154 H (70-99) mg/dL POC Whole Bld Glucose 145 H (70-99) mg/dL Calcium 9.2 (8.4-10.2) mg/dL Magnesium 1.7 (1.6-2.3) mg/dL Total Bilirubin 1.5 H (0.2-1.3) mg/dL AST 27 (17-59) IU/L ALT 24 (<50) IU/L Alkaline Phosphatase 90 (38-126) U/L Total Creatine Kinase < 20 L (55-170) U/L Troponin I 0.017 (0.01-0.034) ng/mL NT-Pro-B Natriuret Pep 3580 H (<450) pg/mL Total Protein 7.1 (6.3-8.2) g/dL Albumin 3.9 (3.5-5.0) g/dL Globulin 3.2 (1.7-4.1) g/dL Albumin/Globulin Ratio 1.2 (1.0-2.8) Lipase < 10 L (23-300) U/L U Opiates 300ng/mL cut Negative (Negative) Ur Oxycodone Screen Positive H (Negative) Urine Methadone Screen Negative (Negative) Ur Barbiturates Screen Negative (Negative) U Tricyclic Antidepress Negative (Negative) Ur Phencyclidine Scrn Negative (Negative) Ur Amphetamines Screen Negative (Negative) U Methamphetamines Scrn Negative (Negative) Ur MDMA Scrn (Ecstasy) Negative (Negative) U Benzodiazepines Scrn Negative (Negative) Urine Cocaine Screen Negative (Negative) U Marijuana (THC) Screen Positive H (Negative) Urine pH Normal (Normal) Urine Specific [place] Normal (Normal) Ur Creatinine Normal (Normal) Urine Dip Bedside Urine Glucose Negative Bedside Urine Bilirubin - Negative Bedside Urine Ketone + 15 Urine Specific [place] 1.025 Bedside Urine Occult Blood +/- Bedside Urine pH 6.0 Bedside Urine Protein +/- 15 Bedside Urine Urobilinogen - Negative Bedside Urine Nitrite - Negative Bedside Urine Leukocytes - Negative Esterase MDM Narrative Medical decision making narrative: 79-year-old male who is a double [id number] amputee with past medical history insulin-dependent diabetes, hyperlipidemia, atrial fibrillation, hypertension, hypothyroidism, GERD presents to the ED with 2 days of spontaneous lower back pain. Concern for musculoskeletal sprain/strain versus UTI versus other. UA is without UTI. During the ED stay, it was noted that patient was desaturating on room air to the 70s. Patient resumed SpO2 in the high 90s when awake. Patient on oxygen via nasal cannula. Cardiopulmonary screen was performed which identified an elevated BNP of 3580. This is markedly above patient's baseline. Patient's last BNP was 729 on 07/29/2025. Troponin within normal limits. All other labs unremarkable. EKG shows atrial fibrillation, incomplete right bundle branch block. No acute ST-T elevations. Urine drug screen is positive for opioids and marijuana. Started 40 mg Lasix IV. Patient's daily dose is 20 mg PO daily. X-ray of the lumbar spine was without acute findings. Patient's symptoms improved with Toradol and Flexeril. Symptoms likely from a musculoskeletal sprain/strain. Hospitalist Dr. Quiroz was consulted and he graciously accepts the patient for admission for further diuresis. Discussed findings and plan with patient. He is agreeable to admission. Medical records reviewed: Yes <Malathi Fraser, DO - Last Filed: 10/04/25 23:15> Lab Data Labs: Lab Results 10/04/25 10/04/25 10/04/25 Range/Units 16:30 16:32 16:47 WBC 6.9 (4.5-11.0) X10^3/uL RBC 4.27 L (4.5-5.9) X10^6/uL Hgb 12.0 L (13.5-17.5) g/dL Hct 35.3 L (41-53) % MCV 82.6 (80-100) fL MCH 28.2 (26-34) PG MCHC 34.1 (30-36) % RDW 14.1 (11.6-14.8) % Plt Count 130 L (150-400) X10^3/uL Neut % (Auto) 60.7 (50-75) % Lymph % (Auto) 25.9 (25-40) % [place] % (Auto) 11.1 (3-14) % Eos % (Auto) 1.5 L (2-4) % Baso % (Auto) 0.8 (0-2) % Neut # (Auto) 4200 (8967-2669) /uL Lymph # (Auto) 1800 (6381-1897) /uL [place] # (Auto) 800 (0-900) /uL Eos # (Auto) 100 (0-450) /uL Baso # (Auto) 100 (0-100) /uL PT 17.7 H (9.4-12.5) SECONDS INR 1.6 H (0.9-1.3) APTT 34 (25.1-36.5) SECONDS Sodium 139 (137-145) mmol/L Potassium 3.9 (3.4-5.1) mmol/L Chloride 105 (98-107) mmol/L Carbon Dioxide 25 (22-32) mmol/L BUN 24 H (9-20) mg/dL Creatinine 0.89 (0.66-1.25) mg/dL Estimated GFR > 60 (>60) mL/min BUN/Creatinine Ratio 27.0 H (6-22) Glucose 154 H (70-99) mg/dL POC Whole Bld Glucose 145 H (70-99) mg/dL Calcium 9.2 (8.4-10.2) mg/dL Magnesium 1.7 (1.6-2.3) mg/dL Total Bilirubin 1.5 H (0.2-1.3) mg/dL AST 27 (17-59) IU/L ALT 24 (<50) IU/L Alkaline Phosphatase 90 (38-126) U/L Total Creatine Kinase < 20 L (55-170) U/L Troponin I 0.017 (0.01-0.034) ng/mL NT-Pro-B Natriuret Pep 3580 H (<450) pg/mL Total Protein 7.1 (6.3-8.2) g/dL Albumin 3.9 (3.5-5.0) g/dL Globulin 3.2 (1.7-4.1) g/dL Albumin/Globulin Ratio 1.2 (1.0-2.8) Lipase < 10 L (23-300) U/L U Opiates 300ng/mL cut Negative (Negative) Ur Oxycodone Screen Positive H (Negative) Urine Methadone Screen Negative (Negative) Ur Barbiturates Screen Negative (Negative) U Tricyclic Antidepress Negative (Negative) Ur Phencyclidine Scrn Negative (Negative) Ur Amphetamines Screen Negative (Negative) U Methamphetamines Scrn Negative (Negative) Ur MDMA Scrn (Ecstasy) Negative (Negative) U Benzodiazepines Scrn Negative (Negative) Urine Cocaine Screen Negative (Negative) U Marijuana (THC) Screen Positive H (Negative) Urine pH Normal (Normal) Urine Specific [place] Normal (Normal) Ur Creatinine Normal (Normal) Urine Dip Bedside Urine Glucose Negative Bedside Urine Bilirubin - Negative Bedside Urine Ketone + 15 Urine Specific [place] 1.025 Bedside Urine Occult Blood +/- Bedside Urine pH 6.0 Bedside Urine Protein +/- 15 Bedside Urine Urobilinogen - Negative Bedside Urine Nitrite - Negative Bedside Urine Leukocytes - Negative Esterase ECG Data Attestation: I personally reviewed and interpreted this ECG as follows: Interpretation: AFib rate of 70 QRS of 112 QTC of 432. No acute ST-elevation depression noted. Patient has prior from 09/13/2025 shows patient with the atrial fibrillation Discharge Plan Departure Patient Disposition: Admitted As Inpatient Clinical Impression: Acute exacerbation of CHF (congestive heart failure) Qualifiers: Heart failure type: unspecified Qualified Code(s): I50.9 - Heart failure, unspecified Admit Date/Time: 10/04/25 18:01 Admit Provider: Saul Galindo
--- NOTE | 2025-10-04 16:09 | EKG_ITS ---
[facility] [address], [place] [address] Test Date: 2025-10-04 Pat Name: Tulio Yi Department: [facility] Room: Gender: Male Cotton Tier: bradley : 1945 Requested By: Order Number: [id number] Reading MD: Bora Little MD Measurements Intervals [place] Rate: 70 P: MD: QRS: 40 QRSD: 112 T: 46 QT: 400 QTc: 432 Interpretive Statements Atrial fibrillation Incomplete right bundle branch block Electronically Signed On 10-04-2025 17:06:27 PST by Bora Little MD
--- NOTE | 2025-10-04 16:09 | DI.RAD.S_ITS ---
PROCEDURE: XR CHEST 1V INDICATIONS: Chest Pain TECHNIQUE: One view of the chest was acquired. COMPARISON: [facility], CR, XR CHEST 1V, 07/29/2025, 19:46. [facility], CR, XR CHEST 2V, 11/09/2024, 13:40. FINDINGS: Surgical changes and devices: Sternotomy Lungs and pleura: Lungs are clear. No pleural effusions or pneumothorax. Mediastinum: Mediastinal contours appear normal. Heart size is normal. Bones and chest wall: No suspicious bony lesions. Overlying soft tissues appear unremarkable. IMPRESSION: No acute cardiopulmonary abnormality is seen. Dictated by: Isidoro Bond M.D. on 10/04/2025 at 16:38 Approved by: Isidoro Bond M.D. on 10/04/2025 at 16:38
[2025-10-04 16:41] LABS: Add Manual Diff / Slide Review NO; Hematocrit 35.3 % (41-53); Hemoglobin 12.0 g/dL (13.5-17.5); Lymphocytes Absolute Auto 1800 /uL (1100-4500); Mean Corpuscular HGB Conc 34.1 % (30-36); Mean Corpuscular Hemoglobin 28.2 PG (26-34); Mean Corpuscular Volume 82.6 fL (80-100); Platelet Count 130 X10^3/uL (150-400)
[2025-10-04 16:51] LABS: INR 1.6 (0.9-1.3); Prothrombin Time 17.7 SECONDS (9.4-12.5)
[2025-10-04 16:54] LABS: PTT Partial Thromboplastin Tim 34 SECONDS (25.1-36.5)
[2025-10-04 17:00] LABS: Alanine Aminotransferase 24 IU/L (<50); Albumin 3.9 g/dL (3.5-5.0); Albumin Globulin Ratio 1.2 (1.0-2.8); Alkaline Phosphatase 90 U/L (38-126); Blood Urea Nitrogen 24 mg/dL (9-20); Calcium 9.2 mg/dL (8.4-10.2); Carbon Dioxide 25 mmol/L (22-32); Chloride 105 mmol/L (98-107); Creatine Kinase < 20 U/L (55-170); Estimated Glomerular Filt Rate > 60 mL/min (>60); Globulin 3.2 g/dL (1.7-4.1); Glucose 154 mg/dL (70-99); HEMOLYSIS < 15 (0-50); Magnesium 1.7 mg/dL (1.6-2.3); Potassium 3.9 mmol/L (3.4-5.1); Sodium 139 mmol/L (137-145); Total Protein 7.1 g/dL (6.3-8.2)
[2025-10-04 17:02] LABS: Lipase < 10 U/L (23-300)
[2025-10-04 17:05] LABS: Ur Specific Gravity Normal (Normal); Urine Tetrahydrocannabinol Positive (Negative)
[2025-10-04 17:06] LABS: UR Morphine/Opiate cutoff 300 Negative (Negative); Urine MDMA Negative (Negative); Urine Methamphetamines Negative (Negative); Urine Tricyclic Antidepressant Negative (Negative)
[2025-10-04 17:12] LABS: NT-proBNP (BNP-Adult 18+) 3580 pg/mL (<450); Troponin I 0.017 ng/mL (0.01-0.034)
[2025-10-04] MEDS: FUROSEMIDE 40 MG/4 ML VIAL IV (17:53)
--- NOTE | 2025-10-04 18:12 | PM.HP.1 ---
History of Present Illness History of Present Illness Date Patient Seen: 10/04/25 Chief complaint: Acute on chronic diastolic heart failure Narrative: Chief complaint: Initially low back pain but hypoxia with hypersomnolence with pulmonary edema hypoxia History of present illness: 75-year-old male with a history of coronary disease and congestive heart failure was seen in the emergency room for back pain it was found to be hypoxic and nodding off to sleep Past medical history is significant for acute non [facility] [place] in 2005 underwent aortocoronary bypass seen with VARGAS to LAD and vein graft to PDA and ramus he also has chronic atrial fibrillation he has a patient of Dr. Gisele tidwell Evaluation in the emergency department significant for patient was hypoxic with basilar rales on examination PT INR 1.6 on Eliquis basic metabolic unremarkable total bilirubin 1.5 BNP 3580 Review of systems: No fever or chills rigors No chest pain palpitations No nausea vomiting diarrhea No paresthesia or paresis Physical examination: Elderly male obese no acute distress HEENT unremarkable Heart sounds distant irregular Lungs diminished breath sounds crackles at bases Extremities bilateral amputee Assessment and plan: Acute on chronic diastolic congestive heart failure: Lasix 40 mg IV q.12 Continue is GMdt regimen Cardiac telemetry Reassess in the morning Chronic coronary artery disease Continue all core measures DVT prophylaxis: Covered with Eliquis Code status: Full code blue Disposition: Inpatient likely 48 hours Time based billing 55 minutes were involved in evaluation of this patient including [id number] patient evaluation discussion with emergency room provider physical examination of the patient review of imaging EKGs and laboratory objective findings previous records from outside sources [facility] Medical History Opiate dependence Peripheral autonomic neuropathy due to diabetes mellitus Sacral back pain Diabetes, type 1.5, uncontrolled, managed as type 2 Myocardial infarct (10/17/06) Hx of drug abuse Measles (Unknown) GERD (gastroesophageal reflux disease) (Unknown) Hyperlipemia (Unknown) Obstructive sleep apnea (Unknown) Atrial fibrillation (Unknown) Hypertension (Unknown) Hepatitis C (Unknown) Peripheral vascular disease (Unknown) Carotid artery disease (Unknown) Hypothyroidism (Unknown) Erectile dysfunction (Unknown) Coronary artery disease involving coronary bypass graft of [place] heart without angina pectoris (09/11/15) Surgical History S/P bilateral BKA (below knee amputation) History of penile implant History of open reduction and internal fixation (ORIF) procedure (09/2010) Hx of coronary artery bypass surgery (10/2006) Hx of cataract surgery (~2004) S/P bilateral below knee amputation (Unknown) Family History Father Age: 90 Heart disease ETOH abuse Mother Age: 98 Heart disease Alzheimer's dementia without behavioral disturbance, Alzheimer's disease of unspecified onset Social History household members: spouse Smoking Status: Current some day smoker alcohol intake: current substance use type: does not use Meds Home Medications and Allergies Home Medications ?Medication ?Instructions ?Recorded ?Confirmed ?Type metoprolol tartrate 100 mg tablet See Rx Instructions .Route 10/16/20 02/07/25 Rx .COMPLEX #180 tabs apixaban 5 mg tablet 5 mg PO BID 08/22/21 02/07/25 History rosuvastatin 20 mg tablet 20 mg PO BEDTIME #90 tabs 12/27/24 02/07/25 Rx levothyroxine 150 mcg tablet 150 mcg PO DAILY #30 tabs 02/07/25 Rx blood sugar diagnostic (OneTouch #100 strips 03/07/25 Rx Ultra Test strips) furosemide 20 mg tablet 20 mg PO QDAY #90 tabs 03/07/25 Rx Liners, suspension sleeves, and #10 ea 05/09/25 Rx socks losartan 25 mg tablet 25 mg PO DAILY #90 tabs 07/13/25 Rx ondansetron 4 mg disintegrating 4 mg PO Q8H PRN nausea and 07/14/25 Rx tablet vomiting #20 tabs insulin human U-100 NPH-regulr 40 unit (0.4 mL) SUBCUT BID #45 mL 07/25/25 Rx 70-30 mix 100 unit/mL subcutaneous susp (Novolin 70/30 U-100 Insulin) insulin syringe-needle U-100 1 mL #100 ea 07/25/25 Rx 30 gauge x 1/2 (Comfort EZ Insulin Syringe) tamsulosin 0.4 mg capsule 0.4 mg PO QPM #90 caps 09/14/25 Rx Allergies Allergy/AdvReac Type Severity Reaction Status Date / Time doxycycline Allergy Vomiting Verified 10/04/25 14:23 cephalexin AdvReac Severe Blister Verified 10/04/25 14:23 adhesive tape (ADHESIVE TAPE) AdvReac Mild PATIENT Verified 10/04/25 14:23 STATES IT PEELS HIS SKIN OFF lisinopril (LISINOPRIL) AdvReac Mild COUGH Verified 10/04/25 14:23 prochlorperazine AdvReac Unknown Verified 10/04/25 14:23 (PROCHLORPERAZINE) shellfish derived (SHELLFISH AdvReac Unknown Verified 10/04/25 14:23 DERIVED) Cephalosporins AdvReac Blister Verified 10/04/25 14:23 Exam Vital Signs (past 8 hours): - 10/04/25 14:10 10/04/25 14:16 10/04/25 14:25 Pulse Rate 88 83 76 Respiratory Rate 18 Blood Pressure 155/69 H Pulse Oximetry 99 98 99 Oxygen Delivery Method Room Air Oxygen Flow Rate 10/04/25 14:25 10/04/25 14:30 10/04/25 14:30 Pulse Rate 69 Respiratory Rate Blood Pressure 149/68 H 147/63 H Pulse Oximetry 98 Oxygen Delivery Method Room Air Oxygen Flow Rate 10/04/25 15:00 10/04/25 15:15 10/04/25 15:15 Pulse Rate 72 74 Respiratory Rate Blood Pressure 160/86 H Pulse Oximetry 99 99 Oxygen Delivery Method Oxygen Flow Rate 10/04/25 15:30 10/04/25 15:30 10/04/25 16:00 Pulse Rate 72 77 Respiratory Rate Blood Pressure 178/84 H Pulse Oximetry 97 95 Oxygen Delivery Method Oxygen Flow Rate 10/04/25 16:01 10/04/25 16:05 10/04/25 16:05 Pulse Rate 77 65 Respiratory Rate Blood Pressure 167/74 H Pulse Oximetry 96 98 Oxygen Delivery Method Nasal Cannula Oxygen Flow Rate 2 10/04/25 16:10 Pulse Rate Respiratory Rate Blood Pressure Pulse Oximetry 99 Oxygen Delivery Method Nasal Cannula Oxygen Flow Rate Oxygen Delivery Method Nasal Cannula Oxygen Flow Rate 2 Objective Labs 10/04/25 16:32 10/04/25 16:32 Labs: Laboratory Results - last 24 hr 10/04/25 10/04/25 10/04/25 16:30 16:32 16:47 WBC 6.9 RBC 4.27 L Hgb 12.0 L Hct 35.3 L MCV 82.6 MCH 28.2 MCHC 34.1 RDW 14.1 Plt Count 130 L Neut % (Auto) 60.7 Lymph % (Auto) 25.9 [place] % (Auto) 11.1 Eos % (Auto) 1.5 L Baso % (Auto) 0.8 Neut # (Auto) 4200 Lymph # (Auto) 1800 [place] # (Auto) 800 Eos # (Auto) 100 Baso # (Auto) 100 PT 17.7 H INR 1.6 H APTT 34 Sodium 139 Potassium 3.9 Chloride 105 Carbon Dioxide 25 BUN 24 H Creatinine 0.89 Estimated GFR > 60 BUN/Creatinine Ratio 27.0 H Glucose 154 H POC Whole Bld Glucose 145 H Calcium 9.2 Magnesium 1.7 Total Bilirubin 1.5 H AST 27 ALT 24 Alkaline Phosphatase 90 Total Creatine Kinase < 20 L Troponin I 0.017 NT-Pro-B Natriuret Pep 3580 H Total Protein 7.1 Albumin 3.9 Globulin 3.2 Albumin/Globulin Ratio 1.2 Lipase < 10 L U Opiates 300ng/mL cut Negative Ur Oxycodone Screen Positive H Urine Methadone Screen Negative Ur Barbiturates Screen Negative U Tricyclic Antidepress Negative Ur Phencyclidine Scrn Negative Ur Amphetamines Screen Negative U Methamphetamines Scrn Negative Ur MDMA Scrn (Ecstasy) Negative U Benzodiazepines Scrn Negative Urine Cocaine Screen Negative U Marijuana (THC) Screen Positive H Urine pH Normal Urine Specific Frost Normal Ur Creatinine Normal Assessment & Plan Time-Based Coding :: [TOTAL MINUTES] spent with patient and on the chart (including review of chart, obtaining history, exam, reviewing outside data, placing orders, documenting exam and treatment plan, and counseling patient) on [DATE].
[2025-10-04] MEDS: APIXABAN 5 MG TABLET PO (20:50)
[2025-10-04] MEDS: METOPROLOL IR 50 MG TABLET 100 MG PO (20:50)
[2025-10-04] MEDS: ATORVASTATIN 20 MG TABLET 40 MG PO (20:50)
[2025-10-04] MEDS: INSULIN LISPRO 100 UNIT/ML 3ML VIAL SUBCUT (21:53)
[2025-10-04] MEDS: INSULIN NPH 100 UNIT/ML 10ML VIAL 25 UNIT SUBCUT (21:54)
[2025-10-05] VITALS (8 sets, daily range): BP systolic 126–154; BP diastolic 58–84; PULSE 78–95; RESP 16–18; TEMP 36.7–38.2; O2SAT 94–100
[2025-10-05] MEDS: FUROSEMIDE 40 MG/4 ML VIAL IV ×2 (00:24→12:34)
[2025-10-05] MEDS: ONDANSETRON 4 MG ODT PO ×2 (01:06→20:22)
[2025-10-05] MEDS: LEVOTHYROXINE 75 MCG TABLET 150 MCG PO (05:17)
[2025-10-05] MEDS: INSULIN LISPRO 100 UNIT/ML 3ML VIAL SUBCUT ×4 (08:16→21:27)
[2025-10-05] MEDS: INSULIN NPH 100 UNIT/ML 10ML VIAL 25 UNIT SUBCUT (08:23)
[2025-10-05] MEDS: LOSARTAN 25 MG TABLET PO (08:31)
[2025-10-05] MEDS: METOPROLOL IR 50 MG TABLET 100 MG PO ×2 (08:31→21:28)
[2025-10-05] MEDS: APIXABAN 5 MG TABLET PO ×2 (08:37→21:28)
--- NOTE | 2025-10-05 09:17 | DI.ECHO.S_ITS ---
[facility] : : [address] : : [place] : : [address] : : Phone: [phone] Echocardiogram Report + + :Name: JANETTE ADKINS Study Date: 10/05/2025 Height: 70 in : :[facility] ReadingLocation: Weight: 235 lb : : Gender: Male BSA: 2.2 m2 : :: 1945 Age: 79 yrs BP: 152/50 mmHg: :Reason For Study: Congestive Heart Failure : :Ordering Physician: MO : :HIGINIO Performed By: Alla Leach : :Referring: HIGINIO HASSAN : + + Interpretation Summary LVEF is low normal to mildly reduced. Images were suboptimal. Procedure: A two-dimensional transthoracic echocardiogram with color flow and Doppler was performed in limited views only to assess LV function. The study quality was technically difficult. Images were not obtained from all of the standard acoustic windows due to the limited scope of the study. Comparison is made with the echocardiogram of 09-20-19. A contrast injection of Definity was performed to improve assessment of LV function. The heart rate ranged between 79-91 bpm during the study. Left Ventricle: The left ventricle is grossly normal size. There is normal left ventricular wall thickness. Diastolic function could not be accurately assessed due to atrial fibrillation. Right Ventricle: The right ventricle grossly appears normal in size with probable normal systolic function. Mitral Valve: The mitral valve is grossly normal. There is mild mitral annular calcification. There is no mitral regurgitation noted. Aortic Valve: The aortic valve opens well. The aortic valve is slightly calcified. There is no aortic valve stenosis. Tricuspid Valve: The tricuspid valve is not well visualized. Pulmonic Valve: The pulmonic valve is not well visualized. Pericardium/ Pleura There is no pericardial effusion. MMode/2D Measurements & Calculations LVIDd: 5.1 cm LVIDs: 3.5 cm FS: 31.4 % IVSd: 0.87 cm LVPWd: 1.0 cm LV guzmán. diameter/BSA (cm/m^2): 2.3 LV sys. diameter/BSA (cm/m^2): 1.6 Reading Physician:01:40 PM
[2025-10-05] MEDS: INFLUENZA HD VACCINE 0.5 ML SYRINGE IM (12:12)
--- NOTE | 2025-10-05 14:47 | CM.DANOTE ---
Initial DCP Assessment Visit Note Reviewed EMR and team rounds for pt's medical status and updates. Went to meet with pt to introduce self and role, however pt was found to be sleeping. Pt lives modified independently with his spouse in their own home here in [place]. His spouse will transport him home once he's medically cleared for home d/c. No CM home d/c needs or resources are identified at this time. Payor: Medicare PCP: Dr. Draper Pt is a 79 year-old M with a PMH of bilateral below the knee amputations, diabetes, Afib, HTN, hypothyroidism, and GERD. He presented to the ED via EMS with c/o lower back pain. His ED eval was significant for elevated BNP and his O2 was desatting on room air. Pt was provided pain meds, muscle relaxers for his back pain, and was started on IV lasix for CHF related diuresis need. Plan was made to admit to the floor for continued diuresis and cardiac monitoring. DCP will continue to follow for any further evolving home d/c needs prior to his departure home. 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 No Advance Directives No on File History Provided By Medical Record Has Patient been Yes admitted in last 30 days? Prior Living House Arrangements Household Members spouse Type of Relies on Others transporation used prior to admit Independent with ADL No: modified with leg protheses and DME. 's Needs Assistance Home Chores / Shopping With Caregiver for No Another DME Already Rented / Bath Bench,Elevated Toilet Seat,FWW / Walker Owned Patient/Family Home with Home Health Preference Comment No home d/c needs are identified at this time. Barriers to No Discharge Discharge Plan Home Whiteboard Updated Yes in Patient Room with name and ext. 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
[2025-10-05] MEDS: TAMSULOSIN 0.4 MG CAPSULE PO (15:44)
[2025-10-05] MEDS: LIDOCAINE 5% PATCH 2 EACH TOP (15:56)
[2025-10-05] MEDS: FUROSEMIDE 20 MG TABLET PO (16:18)
--- NOTE | 2025-10-05 16:24 | PC.NURSE ---
Pt A/O. states he is having bad constipation. Gave a prunchinie, had good results States he is feeling much better. CBG 222,223 & 228, given insulin as per orders SL dislodged; order for no IV site approve. Call light w/in reach, pt calls appropriately for need. Continue w/plan of care.
[2025-10-05] MEDS: INSULIN NPH 100 UNIT/ML 10ML VIAL 28 UNIT SUBCUT (16:51)
[2025-10-05] MEDS: KETOROLAC 30 MG/ML VIAL 15 MG IV (20:14)
[2025-10-05] MEDS: ATORVASTATIN 20 MG TABLET 40 MG PO (21:29)
[2025-10-06 05:36] VITALS: O2SAT 95
[2025-10-06] MEDS: LEVOTHYROXINE 75 MCG TABLET 150 MCG PO (05:58)
[2025-10-06 06:33] LABS: Hemoglobin A1C% w Est Avg Glu 7.2 % (4.0-6.0)
[2025-10-06 07:43] LABS: Blood Urea Nitrogen 28 mg/dL (9-20); Calcium 9.2 mg/dL (8.4-10.2); Carbon Dioxide 22 mmol/L (22-32); Chloride 102 mmol/L (98-107); Estimated Glomerular Filt Rate > 60 mL/min (>60); Glucose 250 mg/dL (70-99); HEMOLYSIS 42 (0-50); Potassium 4.8 mmol/L (3.4-5.1); Sodium 134 mmol/L (137-145)
[2025-10-06 07:57] VITALS: BP 81/52; PULSE 85; RESP 16; TEMP 36.3; O2SAT 97
[2025-10-06] MEDS: INSULIN LISPRO 100 UNIT/ML 3ML VIAL SUBCUT ×3 (07:59→16:50)
[2025-10-06] MEDS: INSULIN NPH 100 UNIT/ML 10ML VIAL 28 UNIT SUBCUT (07:59)
[2025-10-06] MEDS: FUROSEMIDE 20 MG TABLET PO ×2 (08:11→16:56)
[2025-10-06] MEDS: APIXABAN 5 MG TABLET PO (08:11)
[2025-10-06] MEDS: LIDOCAINE 5% PATCH 2 EACH TOP (10:47)
[2025-10-06 11:49] VITALS: BP 137/87; PULSE 75; RESP 18; TEMP 36.5; O2SAT 97
[2025-10-06] MEDS: INSULIN NPH 100 UNIT/ML 10ML VIAL 35 UNIT SUBCUT (16:50)
--- NOTE | 2025-10-06 18:21 | PC.NURSE ---
Patient is A&OX4, VSS,afebrile. BG elevated 300's-400 today. Patient states it is not normally like this, attributing it to steroids. MD notied of elevated BG and pharmacy, made adjustments. He is cleared medically for dsicharge today and expresses eagerness to go home. His transportation is not available until 6 pm despite asking him to call a taxi, he said I don't have a way to get in the house After dinner he is escorted via w/ch by RN to hospital entrance where is arriveds to transport him home at 6 pm
== END 2025-10-06 17:50 | disposition home or self-care (01) | DRG 291 ==
LOC: ED 15:20 → AC 18:02
PROVIDERS: Admitting Provider Internal Medicine; Emergency Provider Student in an Organized Health Care Education/Training Program; Family Provider Family Medicine; PCP Family Medicine; Referring Provider Student in an Organized Health Care Education/Training Program; Visit Provider Internal Medicine
DX: I11.0 Hypertensive heart disease with heart failure (principal); I50.33 Acute on chronic diastolic (congestive) heart failure; I48.20 Chronic atrial fibrillation, unspecified; I25.2 Old myocardial infarction; I25.10 Atherosclerotic heart disease of native coronary artery without angina pectoris; R09.02 Hypoxemia; M54.50 Low back pain, unspecified; F17.200 Nicotine dependence, unspecified, uncomplicated; E11.9 Type 2 diabetes mellitus without complications; E03.9 Hypothyroidism, unspecified; E78.5 Hyperlipidemia, unspecified; Z79.4 Long term (current) use of insulin; Z79.01 Long term (current) use of anticoagulants; Z95.1 Presence of aortocoronary bypass graft; Z79.890 Hormone replacement therapy; Z89.512 Acquired absence of left leg below knee; Z89.511 Acquired absence of right leg below knee
CPT/HCPCS: 36415; 71045; 72100; 80048; 80053; 80305; 81003; 82550; 82962; 83036; 83690; 83735; 83880; 84484; 85025; 85610; 85730; 90471; 90662; 93005; 93010; 93307; 94762; 96374; 96375; 99284; 99285; J1815; J1885; J1938; Q9957

== ENCOUNTER 2025-10-10 13:00 | Emergency (ER) | payer MEDICARE, OTHER, SELFPAY ==
[2025-10-04 19:02] VITALS: BMI 78.0
[2025-10-10 13:14] VITALS: BP 124/63; PULSE 90; RESP 18; TEMP 36.7; O2SAT 96; BMI 34.4
--- NOTE | 2025-10-10 13:38 | EKG_ITS ---
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
--- NOTE | 2025-10-10 13:38 | DI.RAD.S_ITS ---
PROCEDURE: XR CHEST 1V INDICATIONS: Chest Pain TECHNIQUE: One view of the chest was acquired. COMPARISON: [facility], CR, XR CHEST 1V, 10/04/2025, 16:10. FINDINGS: Surgical changes and devices: Remote CABG Lungs and pleura: Lungs are clear. No pleural effusions or pneumothorax. Mediastinum: Mediastinal contours appear normal. Heart size is normal. Bones and chest wall: No suspicious bony lesions. Overlying soft tissues appear unremarkable. IMPRESSION: No acute cardiopulmonary abnormality is seen. Dictated by: Blake Live M.D. on 10/10/2025 at 15:01 Approved by: Blake Live M.D. on 10/10/2025 at 15:01
[2025-10-10 14:02] LABS: Add Manual Diff / Slide Review NO; Hematocrit 37.2 % (41-53); Hemoglobin 13.0 g/dL (13.5-17.5); Lymphocytes Absolute Auto 1200 /uL (1100-4500); Mean Corpuscular HGB Conc 35.0 % (30-36); Mean Corpuscular Hemoglobin 28.2 PG (26-34); Mean Corpuscular Volume 80.7 fL (80-100); Platelet Count 222 X10^3/uL (150-400)
[2025-10-10 14:08] LABS: INR 1.8 (0.9-1.3); Prothrombin Time 20.4 SECONDS (9.4-12.5)
[2025-10-10 14:11] LABS: PTT Partial Thromboplastin Tim 39 SECONDS (25.1-36.5)
[2025-10-10 14:13] LABS: Alanine Aminotransferase 15 IU/L (<50); Albumin 3.5 g/dL (3.5-5.0); Albumin Globulin Ratio 1.1 (1.0-2.8); Alkaline Phosphatase 85 U/L (38-126); Blood Urea Nitrogen 17 mg/dL (9-20); Calcium 8.8 mg/dL (8.4-10.2); Carbon Dioxide 23 mmol/L (22-32); Chloride 100 mmol/L (98-107); Creatine Kinase < 20 U/L (55-170); Estimated Glomerular Filt Rate > 60 mL/min (>60); Globulin 3.3 g/dL (1.7-4.1); Glucose 157 mg/dL (70-99); HEMOLYSIS < 15 (0-50); Lipase < 10 U/L (23-300); Magnesium 1.3 mg/dL (1.6-2.3); Potassium 3.7 mmol/L (3.4-5.1); Sodium 133 mmol/L (137-145); Total Protein 6.8 g/dL (6.3-8.2)
[2025-10-10 14:25] LABS: NT-proBNP (BNP-Adult 18+) 2080 pg/mL (<450); Troponin I < 0.012 ng/mL (0.01-0.034)
--- NOTE | 2025-10-10 15:34 | ED.WEAKNESS ---
HPI - Weakness General Chief complaint: Shortness of Breath/Dyspnea Stated complaint: low back pain Time Seen by Provider: 10/10/25 15:34 Source: patient and EMS Mode of arrival: EMS History of Present Illness HPI Narrative: 79-year-old male patient with a history of hypertension, IDDM, dyslipidemia, CAD, atrial fibrillation/anticoagulation, opiate use disorder and previous IV drug abuse who complains of exacerbation of chronic back with no new injury. He has a pain clinic and a primary care physician. He says muscle relaxants sometimes help. Related Data Home Medications ?Medication ?Instructions ?Recorded ?Confirmed apixaban 5 mg tablet 5 mg PO BID 08/22/21 10/04/25 insulin human U-100 NPH-regulr 35 unit SUBCUT BID 10/04/25 10/04/25 70-30 mix 100 unit/mL subcutaneous susp (Novolin 70/30 U-100 Insulin) Previous Rx's ?Medication ?Instructions ?Recorded metoprolol tartrate 100 mg tablet See Rx Instructions .Route 10/16/20 .COMPLEX #180 tabs levothyroxine 150 mcg tablet 150 mcg PO DAILY #30 tabs 02/07/25 blood sugar diagnostic (OneTouch #100 strips 03/07/25 Ultra Test strips) furosemide 20 mg tablet 20 mg PO QDAY #90 tabs 03/07/25 Liners, suspension sleeves, and #10 ea 05/09/25 socks losartan 25 mg tablet 25 mg PO DAILY #90 tabs 07/13/25 insulin syringe-needle U-100 1 mL #100 ea 07/25/25 30 gauge x 1/2 (Comfort EZ Insulin Syringe) tamsulosin 0.4 mg capsule 0.4 mg PO QPM #90 caps 09/14/25 lidocaine 5 % topical patch 2 patch topical DAILY #60 ea 10/06/25 methocarbamol 500 mg tablet 500 mg PO TID #90 tabs 10/06/25 rosuvastatin 20 mg tablet 20 mg PO BEDTIME #90 tabs 10/10/25 Allergies Allergy/AdvReac Type Severity Reaction Status Date / Time doxycycline Allergy Vomiting Verified 10/04/25 14:23 cephalexin AdvReac Severe Blister Verified 10/04/25 14:23 adhesive tape (ADHESIVE TAPE) AdvReac Mild PATIENT Verified 10/04/25 14:23 STATES IT PEELS HIS SKIN OFF lisinopril (LISINOPRIL) AdvReac Mild COUGH Verified 10/04/25 14:23 prochlorperazine AdvReac Unknown Verified 10/04/25 14:23 (PROCHLORPERAZINE) shellfish derived (SHELLFISH AdvReac Unknown Verified 10/04/25 14:23 DERIVED) Cephalosporins AdvReac Blister Verified 10/04/25 14:23 Review of Systems Review of Systems ROS Unobtainable: All systems reviewed & are unremarkable except as noted in HPI and below Musculoskeletal Musculoskeletal: Reports as per HPI Patient History Medical History Opiate dependence Peripheral autonomic neuropathy due to diabetes mellitus Sacral back pain Diabetes, type 1.5, uncontrolled, managed as type 2 Myocardial infarct (10/17/06) Hx of drug abuse Measles (Unknown) GERD (gastroesophageal reflux disease) (Unknown) Hyperlipemia (Unknown) Obstructive sleep apnea (Unknown) Atrial fibrillation (Unknown) Hypertension (Unknown) Hepatitis C (Unknown) Peripheral vascular disease (Unknown) Carotid artery disease (Unknown) Hypothyroidism (Unknown) Erectile dysfunction (Unknown) Coronary artery disease involving coronary bypass graft of [place] heart without angina pectoris (09/11/15) Surgical History S/P bilateral BKA (below knee amputation) History of penile implant History of open reduction and internal fixation (ORIF) procedure (09/2010) Hx of coronary artery bypass surgery (10/2006) Hx of cataract surgery (~2004) S/P bilateral below knee amputation (Unknown) Family History Father Age: 90 Heart disease ETOH abuse Mother Age: 98 Heart disease Alzheimer's dementia without behavioral disturbance, Alzheimer's disease of unspecified onset Social History household members: spouse alcohol intake: current substance use type: does not use alcohol intake frequency: holidays/special occasions only Exam Narrative Exam Narrative: General: Alert and conversant. No distress. Appears well nourished and well hydrated Craniofacial: No evidence of trauma. Nontender and no swelling. Lungs: Clear to auscultation with good air movement. No wheezing, rales or rhonchi. No respiratory distress Cardiac: Regular rate and rhythm with no appreciable murmur or gallop Abdomen: Soft, nontender with no distention or masses. Normal bowel sounds. No rebound or guarding Musculoskeletal: Exam of the extremities, axial spine and ribcage reveals no deformity, bony tenderness or swelling. Range of motion intact Neuro: Alert and oriented. Cranial nerves, motor, sensory and cerebellar all grossly intact. No focal deficit Skin: Warm and normal color. No rashes Psychological: Normal affect and interaction. No evidence of delusion or psychosis. Normal mood. Initial Vital Signs Initial Vital Signs: Vital Signs Temperature 98.0 F 10/10/25 13:14 Pulse Rate 90 10/10/25 13:14 Respiratory Rate 18 10/10/25 13:14 Blood Pressure 124/63 10/10/25 13:14 Pulse Oximetry 96 10/10/25 13:14 Oxygen Delivery Method Room Air 10/10/25 13:14 Course Orders Ordered: ED Orders 10/10/25 13:38 XR chest 1V Stat EKG-12 Lead Stat 10/10/25 13:56 Complete Blood Count AUTO DIFF Stat Comprehensive Metabolic Panel Stat Lipase Stat Magnesium Stat NT-proBNP (BNP-Adult 18+) Stat PTT Partial Thromboplastin Cuco Stat Prothrombin Time INR Stat Troponin & CK Cardiac Panel Stat Vital Signs Vital signs: Vital Signs - 8 hr 10/10/25 16:30 10/10/25 17:00 10/10/25 18:00 Pulse Rate 80 87 81 Respiratory Rate 16 16 16 Blood Pressure 144/70 H 137/86 137/68 Pulse Oximetry 98 99 97 Oxygen Delivery Method Nasal Cannula Room Air Oxygen Flow Rate 2 MDM - Weakness Medical Records Attestation: I reviewed the patient's medical records. Lab Data Attestation: I reviewed the patient's lab results. 10/10/25 13:56 10/10/25 13:56 Labs: Lab Results 10/10/25 10/10/25 10/10/25 Range/Units 13:56 14:04 15:45 WBC 9.2 (4.5-11.0) X10^3/uL RBC 4.60 (4.5-5.9) X10^6/uL Hgb 13.0 L (13.5-17.5) g/dL Hct 37.2 L (41-53) % MCV 80.7 (80-100) fL MCH 28.2 (26-34) PG MCHC 35.0 (30-36) % RDW 13.7 (11.6-14.8) % Plt Count 222 (150-400) X10^3/uL Neut % (Auto) 75.6 H (50-75) % Lymph % (Auto) 13.5 L (25-40) % [place] % (Auto) 8.7 (3-14) % Eos % (Auto) 1.3 L (2-4) % Baso % (Auto) 0.9 (0-2) % Neut # (Auto) 6900 (4676-5002) /uL Lymph # (Auto) 1200 (4832-0801) /uL [place] # (Auto) 800 (0-900) /uL Eos # (Auto) 100 (0-450) /uL Baso # (Auto) 100 (0-100) /uL PT 20.4 H (9.4-12.5) SECONDS INR 1.8 H (0.9-1.3) APTT 39 H (25.1-36.5) SECONDS Sodium 133 L (137-145) mmol/L Potassium 3.7 (3.4-5.1) mmol/L Chloride 100 (98-107) mmol/L Carbon Dioxide 23 (22-32) mmol/L BUN 17 (9-20) mg/dL Creatinine 0.81 (0.66-1.25) mg/dL Estimated GFR > 60 (>60) mL/min BUN/Creatinine Ratio 21.0 (6-22) Glucose 157 H (70-99) mg/dL POC Whole Bld Glucose 149 H D 83 (70-99) mg/dL Calcium 8.8 (8.4-10.2) mg/dL Magnesium 1.3 L (1.6-2.3) mg/dL Total Bilirubin 1.3 (0.2-1.3) mg/dL AST 20 (17-59) IU/L ALT 15 (<50) IU/L Alkaline Phosphatase 85 (38-126) U/L Total Creatine Kinase < 20 L (55-170) U/L Troponin I < 0.012 (0.01-0.034) ng/mL NT-Pro-B Natriuret Pep 2080 H (<450) pg/mL Total Protein 6.8 (6.3-8.2) g/dL Albumin 3.5 (3.5-5.0) g/dL Globulin 3.3 (1.7-4.1) g/dL Albumin/Globulin Ratio 1.1 (1.0-2.8) Lipase < 10 L (23-300) U/L 10/10/25 10/10/25 Range/Units 16:55 17:40 WBC (4.5-11.0) X10^3/uL RBC (4.5-5.9) X10^6/uL Hgb (13.5-17.5) g/dL Hct (41-53) % MCV (80-100) fL MCH (26-34) PG MCHC (30-36) % RDW (11.6-14.8) % Plt Count (150-400) X10^3/uL Neut % (Auto) (50-75) % Lymph % (Auto) (25-40) % [place] % (Auto) (3-14) % Eos % (Auto) (2-4) % Baso % (Auto) (0-2) % Neut # (Auto) (8422-5600) /uL Lymph # (Auto) (4560-3124) /uL [place] # (Auto) (0-900) /uL Eos # (Auto) (0-450) /uL Baso # (Auto) (0-100) /uL PT (9.4-12.5) SECONDS INR (0.9-1.3) APTT (25.1-36.5) SECONDS Sodium (137-145) mmol/L Potassium (3.4-5.1) mmol/L Chloride (98-107) mmol/L Carbon Dioxide (22-32) mmol/L BUN (9-20) mg/dL Creatinine (0.66-1.25) mg/dL Estimated GFR (>60) mL/min BUN/Creatinine Ratio (6-22) Glucose (70-99) mg/dL POC Whole Bld Glucose 61 L 94 (70-99) mg/dL Calcium (8.4-10.2) mg/dL Magnesium (1.6-2.3) mg/dL Total Bilirubin (0.2-1.3) mg/dL AST (17-59) IU/L ALT (<50) IU/L Alkaline Phosphatase (38-126) U/L Total Creatine Kinase (55-170) U/L Troponin I (0.01-0.034) ng/mL NT-Pro-B Natriuret Pep (<450) pg/mL Total Protein (6.3-8.2) g/dL Albumin (3.5-5.0) g/dL Globulin (1.7-4.1) g/dL Albumin/Globulin Ratio (1.0-2.8) Lipase (23-300) U/L Point of Care Testing Glucose POC 94 Imaging Data Chest x-ray: Attestation: I personally reviewed and interpreted this imaging study as follows: My Impression: No acute disease. ECG Data Attestation: I personally reviewed and interpreted this ECG as follows: (Atrial fibrillation with a rate of 82. No ischemic changes. Normal axis and intervals ) MDM Narrative Medical decision making narrative: I initially saw the patient in the yap and by the time I saw him in his room he had no further back pain. Lab work is essentially unremarkable. Triage had mentioned shortness of breath but he denied that to me and had no chest pain. Nevertheless he had a full set of labs that were unremarkable including troponin. Chest x-ray and EKG are reassuring. Patient has a exacerbation of chronic back pain which has resolved without intervention in the ER. Plan is for him to follow up with primary care and his pain clinic for management of chronic back symptoms. Return to the ER for any worsening symptoms. Discharge Plan Departure Patient Disposition: Home Clinical Impression: Chronic low back pain Instructions: Managing Chronic Low Back Pain Activity Restrictions/Additional Instructions: Plan: Continue current medications and follow up closely with your doctor and pain clinic. May need physical therapy or adjustment of pain management through either of your providers. Return to the ER if worse. Prescriptions: No Action metoprolol tartrate 100 mg tablet See Rx Instructions .ROUTE .COMPLEX Qty: 180 3RF Dose Instruction: take 1 tablet by mouth twice a day Rx Instructions: 100 BID apixaban 5 mg tablet 5 mg PO BID levothyroxine 150 mcg tablet 150 mcg PO DAILY Qty: 30 11RF furosemide 20 mg tablet 20 mg PO QDAY Qty: 90 3RF (DME) OneTouch Ultra Test Strip See Rx Instructions .ROUTE .COMPLEX Qty: 100 11RF Dose Instruction: USE TO TEST BLOOD GLUCOSE FOUR TIMES DAILY Rx Instructions: USE TO TEST BLOOD GLUCOSE FOUR TIMES DAILY (DME) Liners, suspension sleeves, and socks See Rx Instructions .Route .MEDSUPPLY Qty: 10 0RF Rx Instructions: As directed losartan 25 mg tablet 25 mg PO DAILY Qty: 90 2RF (DME) insulin syringe-needle U-100 [Comfort EZ Insulin Syringe] 1 mL 30 gauge x 1/2 syringe See Rx Instructions .Route Qty: 100 3RF Rx Instructions: Use 1 syringe with 30x12.7 mm needle to inject insulin four times daily. tamsulosin 0.4 mg capsule 0.4 mg PO QPM Qty: 90 1RF rosuvastatin 20 mg tablet 20 mg PO BEDTIME Qty: 90 1RF Novolin 70/30 U-100 Insulin 100 unit/mL (70-30) suspension 35 unit SUBCUT BID methocarbamol 500 mg Tablet 500 mg PO TID Qty: 90 0RF lidocaine 5 % Adhesive Patch,Medicated 2 patch topical DAILY Qty: 60 0RF Referrals: Sobia Draper DO [Primary Care Provider, Family Practice] Stand Alone Forms: Patient Portal/API
[2025-10-10 16:30] VITALS: BP 144/70; PULSE 80; RESP 16; O2SAT 98
[2025-10-10 17:00] VITALS: BP 137/86; PULSE 87; RESP 16; O2SAT 99
[2025-10-10 18:00] VITALS: BP 137/68; PULSE 81; RESP 16; O2SAT 97
== END 2025-10-10 18:19 | disposition home or self-care (01) ==
PROVIDERS: Emergency Medicine; Emergency Provider Emergency Medicine; Family Provider Family Medicine; PCP Family Medicine
DX: M54.50 Low back pain, unspecified (principal); G89.29 Other chronic pain; I48.91 Unspecified atrial fibrillation; Z79.01 Long term (current) use of anticoagulants
CPT/HCPCS: 71045; 80053; 82550; 82962; 83690; 83735; 83880; 84484; 85025; 85610; 85730; 93005; 99284

== ENCOUNTER → 2025-10-12 16:09 | Outpatient (CLI) | payer MEDICARE, OTHER, SELFPAY ==
[2025-10-04 19:02] VITALS: BMI 78.0
--- NOTE | 2025-10-12 16:11 | DI.CT.S_ITS ---
PROCEDURE: CT ABDOMEN PELVIS W CON INDICATIONS: Rt hernia, abd pain TECHNIQUE: After the administration of intravenous contrast, axial sections acquired from the lung bases to the pubic symphysis. Coronal and sagittal reformats were performed. For radiation dose reduction, the following was used: automated exposure control, adjustment of mA and/or kV according to patient size. COMPARISON: [facility], CT, CT ABDOMEN PELVIS W CON, 11/30/2024, 22:41. FINDINGS: Image quality: Diagnostic. Lower Chest: Similar subsegmental atelectasis versus reticular scarring. Partially visualized coronary artery stents and calcifications. ABDOMEN: Liver: No solid mass. Gallbladder: No radiopaque gallstones or wall thickening. Biliary ducts: No biliary dilation. Pancreas: No ductal dilation. Spleen: Size is within normal limits. Adrenal Glands: No adrenal nodules. Kidneys and Ureters: No hydronephrosis. No solid mass. No complex renal cystic lesion which requires follow up. Stomach and Bowel: Normal colonic caliber, without significant wall thickening. Oral contrast extends to the mid small bowel. Peritoneum: No abnormal intraperitoneal fluid. No free air. Ventral Wall: Similar small fat containing umbilical hernia. Abdominal Nodes: No retroperitoneal or mesenteric adenopathy by size criteria. Vessels: Aorta and inferior vena cava are normal in size. Moderate atherosclerotic vascular disease. PELVIS: Pelvic Organs: Unremarkable. Bladder: No bladder wall thickening, accounting for underdistention. Pelvic Nodes: No enlarged lymph nodes. Miscellaneous: Redemonstrated moderate to large right inguinal hernia containing mesenteric fat and small bowel without evidence of obstruction. Similar small left fat containing inguinal hernia. Penile implant is redemonstrated. Nonspecific similar-appearing surgical device is demonstrated within the anterior pelvis. Bones: Similar ORIF of the right proximal femur. Chronic nonunion of left pubic fractures. IMPRESSION: Similar size and appearance of moderate right inguinal hernia containing mesenteric fat and small bowel without evidence of obstruction or strangulation. Of note, oral contrast does not extend to the level of the herniated small bowel. Dictated by: Scott Lassiter M.D. on 10/12/2025 at 18:03 Approved by: Scott Lassiter M.D. on 10/12/2025 at 18:16
--- NOTE | 2025-10-12 16:11 | DI.US.S_ITS ---
PROCEDURE: US SCROTUM INDICATIONS: Rt hernia, abd pain TECHNIQUE: Real-time scanning was performed of the scrotum and testicles, with image documentation. Color and pulse Doppler interrogation was performed of both testicles. COMPARISON: [facility], CT, CT ABDOMEN PELVIS W CON, 10/12/2025, 17:14. FINDINGS: Right: Testicle is normal in size at 4.8 x 2.4 x 2.7 cm, and homogeneous in echotexture. Epididymis is normal in overall size and morphology. No hydrocele or varicoceles. Overlying scrotal skin is normal in thickness. Left: Testicle is normal in size at 4.0 x 3.0 x 2.4 cm, and homogeneous in echotexture. Epididymis is not well seen. No hydrocele or varicoceles. Overlying scrotal skin is normal in thickness. Doppler: Color and pulse Doppler demonstrate normal and symmetric arterial flow in both testicles. Right inguinal hernia containing fat and peristalsing bowel with defect measuring 3.1 x 2.9 cm and contents measuring approximately 12.4 x 6.8 x 5.1 cm. IMPRESSION: Large right inguinal hernia containing fat and bowel. Dictated by: Tien Gil M.D. on 10/12/2025 at 20:09 Approved by: Tien Gil M.D. on 10/12/2025 at 20:18
== END ==
PROVIDERS: Family Provider Family Medicine; PCP Family Medicine; Referring Provider Family Medicine; Visit Provider Family Medicine
DX: N50.811 Right testicular pain (principal); N50.819 Testicular pain, unspecified; K46.0 Unspecified abdominal hernia with obstruction, without gangrene; K40.90 Unilateral inguinal hernia, without obstruction or gangrene, not specified as recurrent
CPT/HCPCS: 74177; 76870; 93975; Q9967

== ENCOUNTER 2025-10-12 22:16 | Emergency (ER) | payer MEDICARE, OTHER, SELFPAY ==
[2025-10-04 19:02] VITALS: BMI 78.0
[2025-10-12 22:21] VITALS: BP 151/66; PULSE 87; RESP 18; TEMP 36.9; O2SAT 97
== END 2025-10-13 00:42 | disposition left against medical advice (07) ==
PROVIDERS: Emergency Provider Emergency Medicine; Family Provider Family Medicine; PCP Family Medicine
DX: Z53.21 Procedure and treatment not carried out due to patient leaving prior to being seen by health care provider (principal)
CPT/HCPCS: 99281

== ENCOUNTER 2025-10-13 16:11 | Emergency (ER) | payer MEDICARE, OTHER, SELFPAY ==
[2025-10-04 19:02] VITALS: BMI 78.0
[2025-10-13] VITALS (19 sets, daily range): BP systolic 99–189; BP diastolic 61–79; PULSE 78–97; RESP 14–32; TEMP 36.5; O2SAT 91–100; BMI 31.2
[2025-10-13 16:40] LABS: Add Manual Diff / Slide Review NO; Hematocrit 41.4 % (41-53); Hemoglobin 14.3 g/dL (13.5-17.5); Lymphocytes Absolute Auto 1700 /uL (1100-4500); Mean Corpuscular HGB Conc 34.5 % (30-36); Mean Corpuscular Hemoglobin 28.1 PG (26-34); Mean Corpuscular Volume 81.5 fL (80-100); Platelet Count 312 X10^3/uL (150-400)
[2025-10-13 16:44] LABS: Alanine Aminotransferase 21 IU/L (<50); Albumin 4.3 g/dL (3.5-5.0); Albumin Globulin Ratio 1.1 (1.0-2.8); Alkaline Phosphatase 109 U/L (38-126); Blood Urea Nitrogen 12 mg/dL (9-20); Calcium 9.6 mg/dL (8.4-10.2); Carbon Dioxide 25 mmol/L (22-32); Chloride 99 mmol/L (98-107); Estimated Glomerular Filt Rate > 60 mL/min (>60); Globulin 3.9 g/dL (1.7-4.1); Glucose 156 mg/dL (70-99); HEMOLYSIS < 15 (0-50); Potassium 3.8 mmol/L (3.4-5.1); Sodium 138 mmol/L (137-145); Total Protein 8.2 g/dL (6.3-8.2)
--- NOTE | 2025-10-13 16:53 | ED.ABDPAIN ---
HPI - Abdominal Pain <Caitlin Felder PA-C - Last Filed: 10/13/25 18:46> General Chief Complaint: Abdominal Pain Stated Complaint: Abd. Pain Time Seen by Provider: 10/13/25 16:50 Source: patient and EMS Mode of arrival: EMS History of Present Illness HPI narrative: Mr. Yi is a 79-year-old male with a past medical history of HTN, IDDM with subsequent BL BKA, HLD, CAD, AFib on Eliquis who presents to the emergency department via EMS for abdominal/hernia pain, concern for bowel obstruction. Patient has had a right inguinal hernia since 2018 after a trauma, however it was not until a few days ago that it started becoming painful and popping out more frequently. Usually he is able to push it back in on itself but now it is popping out immediately. Patient had a CT abdomen pelvis with contrast and ultrasound scrotum yesterday which revealed a large right inguinal hernia containing fat and bowel. Patient came to the emergency department but left at 1:00 a.m. due to long wait time and because he was feeling better. Today however the pain came back and it is much more severe and he is unable to pass a bowel movement. He did take Eliquis 8am. Related Data Home Medications ?Medication ?Instructions ?Recorded ?Confirmed apixaban 5 mg tablet 5 mg PO BID 08/22/21 10/12/25 insulin human U-100 NPH-regulr 35 unit SUBCUT BID 10/04/25 10/12/25 70-30 mix 100 unit/mL subcutaneous susp (Novolin 70/30 U-100 Insulin) Previous Rx's ?Medication ?Instructions ?Recorded metoprolol tartrate 100 mg tablet See Rx Instructions .Route 10/16/20 .COMPLEX #180 tabs levothyroxine 150 mcg tablet 150 mcg PO DAILY #30 tabs 02/07/25 blood sugar diagnostic (OneTouch #100 strips 03/07/25 Ultra Test strips) furosemide 20 mg tablet 20 mg PO QDAY #90 tabs 03/07/25 Liners, suspension sleeves, and #10 ea 05/09/25 socks losartan 25 mg tablet 25 mg PO DAILY #90 tabs 07/13/25 insulin syringe-needle U-100 1 mL #100 ea 07/25/25 30 gauge x 1/2 (Comfort EZ Insulin Syringe) tamsulosin 0.4 mg capsule 0.4 mg PO QPM #90 caps 09/14/25 lidocaine 5 % topical patch 2 patch topical DAILY #60 ea 10/06/25 methocarbamol 500 mg tablet 500 mg PO TID #90 tabs 10/06/25 rosuvastatin 20 mg tablet 20 mg PO BEDTIME #90 tabs 10/10/25 Allergies Allergy/AdvReac Type Severity Reaction Status Date / Time doxycycline Allergy Vomiting Verified 10/12/25 15:00 cephalexin AdvReac Severe Blister Verified 10/12/25 15:00 adhesive tape (ADHESIVE TAPE) AdvReac Mild PATIENT Verified 10/12/25 15:00 STATES IT PEELS HIS SKIN OFF lisinopril (LISINOPRIL) AdvReac Mild COUGH Verified 10/12/25 15:00 prochlorperazine AdvReac Unknown Verified 10/12/25 15:00 (PROCHLORPERAZINE) shellfish derived (SHELLFISH AdvReac Unknown Verified 10/12/25 15:00 DERIVED) Cephalosporins AdvReac Blister Verified 10/12/25 15:00 Review of Systems <Caitlin Felder PA-C - Last Filed: 10/13/25 18:46> Review of Systems ROS Unobtainable: All systems reviewed & are unremarkable except as noted in HPI and below Patient History <Caitlin Felder PA-C - Last Filed: 10/13/25 18:46> Medical History Opiate dependence Peripheral autonomic neuropathy due to diabetes mellitus Sacral back pain Diabetes, type 1.5, uncontrolled, managed as type 2 Myocardial infarct (10/17/06) Hx of drug abuse Measles (Unknown) GERD (gastroesophageal reflux disease) (Unknown) Hyperlipemia (Unknown) Obstructive sleep apnea (Unknown) Atrial fibrillation (Unknown) Hypertension (Unknown) Hepatitis C (Unknown) Peripheral vascular disease (Unknown) Carotid artery disease (Unknown) Hypothyroidism (Unknown) Erectile dysfunction (Unknown) Coronary artery disease involving coronary bypass graft of [place] heart without angina pectoris (09/11/15) Surgical History S/P bilateral BKA (below knee amputation) History of penile implant History of open reduction and internal fixation (ORIF) procedure (09/2010) Hx of coronary artery bypass surgery (10/2006) Hx of cataract surgery (~2004) S/P bilateral below knee amputation (Unknown) Family History Father Age: 90 Heart disease ETOH abuse Mother Age: 98 Heart disease Alzheimer's dementia without behavioral disturbance, Alzheimer's disease of unspecified onset Social History household members: spouse Smoking Status: Former smoker alcohol intake: current substance use type: does not use Smoking Status: Former smoker alcohol intake frequency: holidays/special occasions only Exam <Caitlin Felder PA-C - Last Filed: 10/13/25 18:46> Narrative Exam Narrative: GENERAL: 79 year old patient appears stated age. Well-developed patient, in no acute distress. HEAD: Atraumatic. Normocephalic. EYES: No scleral icterus. No injection or drainage. NECK: Trachea midline. Cervical ROM intact. CARDIOVASCULAR: Regular rate and irregularly irregular rhythm RESPIRATORY: ?Nonlabored respirations. ?Speaking in clear, full sentences. ?Clear to auscultation. GASTROINTESTINAL: Abdomen soft, nondistended. There is a right inguinal hernia extending into the scrotum, there is no overlying skin changes, it is soft and partially reducible with mild pain. Bowel sounds are auscultated in the hernia. EXTREMITIES: bilateral BKA NEURO: AOx3. ?Clear speech. ?Moves all 4 extremities appropriately. SKIN: No rash or erythema of visible areas. Initial Vital Signs Initial Vital Signs: Vital Signs Temperature 97.7 F 10/13/25 16:13 Pulse Rate 92 H 10/13/25 16:13 Respiratory Rate 16 10/13/25 16:13 Blood Pressure 99/61 10/13/25 16:13 Pulse Oximetry 99 10/13/25 16:13 Oxygen Delivery Method Room Air 10/13/25 16:13 <Lui Justin MD - Last Filed: 10/14/25 01:49> Initial Vital Signs Initial Vital Signs: Vital Signs Temperature 97.7 F 10/13/25 16:13 Pulse Rate 92 H 10/13/25 16:13 Respiratory Rate 16 10/13/25 16:13 Blood Pressure 99/61 10/13/25 16:13 Pulse Oximetry 99 10/13/25 16:13 Oxygen Delivery Method Room Air 10/13/25 16:13 Course <Caitlin Felder PA-C - Last Filed: 10/13/25 18:46> Orders Ordered: ED Orders 10/13/25 17:09 XR chest 1V Stat EKG-12 Lead Stat 10/13/25 17:51 Blood Culture Stat 10/13/25 19:08 CT abdomen pelvis w con Stat Discontinued Medications Hydrocodone Bitart/Acetaminophen (Hydrocodone/Acet 5/325 Prepack) 1 bottle MISC DIRECTED ONE Stop: 10/13/25 22:32 Last Admin: 10/13/25 23:09 Dose: 1 bottle Documented By: MANUELA Lactated Ringer's (Lactated Ringers) 500 mls @ 1,000 mls/hr IV BOLUS ONE Stop: 10/13/25 17:38 Last Admin: 10/13/25 17:44 Dose: Not Given Documented By: JEMAL Piperacillin Sod/Tazobactam (Sod 4.5 gm/ Sodium Chloride) 100 mls @ 200 mls/hr IV STAT ONE Stop: 10/13/25 17:23 Last Infusion: 10/13/25 18:51 Dose: Infused Documented By: Admin: 10/13/25 18:15 Dose: 200 mls/hr Documented By: JEMAL Sodium Chloride (Normal Saline 0.9%) 1,000 mls @ 1,000 mls/hr IV BOLUS ONE Stop: 10/13/25 18:36 Last Infusion: 10/13/25 18:51 Dose: Infused Documented By: Admin: 10/13/25 17:43 Dose: 1,000 mls/hr Documented By: JEMAL Acetaminophen (Ofirmev) 1,000 mg in 100 mls @ 400 mls/hr IV NOW ONE Stop: 10/13/25 17:59 Last Infusion: 10/13/25 18:15 Dose: Infused Documented By: Admin: 10/13/25 17:52 Dose: 400 mls/hr Documented By: JEMAL Vital Signs Vital signs: Vital Signs - 8 hr 10/13/25 18:00 10/13/25 18:00 10/13/25 18:30 Pulse Rate 84 85 Respiratory Rate 29 H 30 H Blood Pressure 174/74 H Pulse Oximetry 100 100 10/13/25 18:31 10/13/25 18:31 10/13/25 19:00 Pulse Rate 80 97 H Respiratory Rate 32 H 26 H Blood Pressure 189/79 H Pulse Oximetry 100 10/13/25 19:05 10/13/25 19:05 10/13/25 19:30 Pulse Rate 83 Respiratory Rate 24 Blood Pressure 148/65 H 148/68 H Pulse Oximetry 98 10/13/25 19:30 10/13/25 20:00 10/13/25 20:30 Pulse Rate 79 80 80 Respiratory Rate 17 20 21 Blood Pressure Pulse Oximetry 97 97 99 10/13/25 21:00 10/13/25 21:30 10/13/25 22:00 Pulse Rate 78 78 82 Respiratory Rate 23 17 14 Blood Pressure Pulse Oximetry 97 99 98 10/13/25 22:30 Pulse Rate 81 Respiratory Rate 23 Blood Pressure Pulse Oximetry 99 <Lui Justin MD - Last Filed: 10/14/25 01:49> Orders Ordered: ED Orders 10/13/25 17:09 XR chest 1V Stat EKG-12 Lead Stat 10/13/25 17:51 Blood Culture Stat 10/13/25 19:08 CT abdomen pelvis w con Stat Discontinued Medications Hydrocodone Bitart/Acetaminophen (Hydrocodone/Acet 5/325 Prepack) 1 bottle MISC DIRECTED ONE Stop: 10/13/25 22:32 Last Admin: 10/13/25 23:09 Dose: 1 bottle Documented By: MANUELA Lactated Ringer's (Lactated Ringers) 500 mls @ 1,000 mls/hr IV BOLUS ONE Stop: 10/13/25 17:38 Last Admin: 10/13/25 17:44 Dose: Not Given Documented By: JEMAL Piperacillin Sod/Tazobactam (Sod 4.5 gm/ Sodium Chloride) 100 mls @ 200 mls/hr IV STAT ONE Stop: 10/13/25 17:23 Last Infusion: 10/13/25 18:51 Dose: Infused Documented By: Admin: 10/13/25 18:15 Dose: 200 mls/hr Documented By: JEMAL Sodium Chloride (Normal Saline 0.9%) 1,000 mls @ 1,000 mls/hr IV BOLUS ONE Stop: 10/13/25 18:36 Last Infusion: 10/13/25 18:51 Dose: Infused Documented By: Admin: 10/13/25 17:43 Dose: 1,000 mls/hr Documented By: JEMAL Acetaminophen (Ofirmev) 1,000 mg in 100 mls @ 400 mls/hr IV NOW ONE Stop: 10/13/25 17:59 Last Infusion: 10/13/25 18:15 Dose: Infused Documented By: Admin: 10/13/25 17:52 Dose: 400 mls/hr Documented By: JEMAL Vital Signs Vital signs: Vital Signs - 8 hr 10/13/25 18:00 10/13/25 18:00 10/13/25 18:30 Pulse Rate 84 85 Respiratory Rate 29 H 30 H Blood Pressure 174/74 H Pulse Oximetry 100 100 10/13/25 18:31 10/13/25 18:31 10/13/25 19:00 Pulse Rate 80 97 H Respiratory Rate 32 H 26 H Blood Pressure 189/79 H Pulse Oximetry 100 10/13/25 19:05 10/13/25 19:05 10/13/25 19:30 Pulse Rate 83 Respiratory Rate 24 Blood Pressure 148/65 H 148/68 H Pulse Oximetry 98 10/13/25 19:30 10/13/25 20:00 10/13/25 20:30 Pulse Rate 79 80 80 Respiratory Rate 17 20 21 Blood Pressure Pulse Oximetry 97 97 99 10/13/25 21:00 10/13/25 21:30 10/13/25 22:00 Pulse Rate 78 78 82 Respiratory Rate 23 17 14 Blood Pressure Pulse Oximetry 97 99 98 10/13/25 22:30 Pulse Rate 81 Respiratory Rate 23 Blood Pressure Pulse Oximetry 99 MDM - Abdominal Pain <Caitlin Felder PA-C - Last Filed: 10/13/25 18:46> Medical Records Attestation: I reviewed the patient's medical records. Lab Data 10/13/25 16:24 10/13/25 16:24 Labs: Lab Results 10/13/25 10/13/25 Range/Units 16:24 19:12 WBC 10.9 (4.5-11.0) X10^3/uL RBC 5.09 (4.5-5.9) X10^6/uL Hgb 14.3 (13.5-17.5) g/dL Hct 41.4 (41-53) % MCV 81.5 (80-100) fL MCH 28.1 (26-34) PG MCHC 34.5 (30-36) % RDW 13.6 (11.6-14.8) % Plt Count 312 (150-400) X10^3/uL Neut % (Auto) 72.2 (50-75) % Lymph % (Auto) 15.8 L (25-40) % [place] % (Auto) 9.4 (3-14) % Eos % (Auto) 1.6 L (2-4) % Baso % (Auto) 1.0 (0-2) % Neut # (Auto) 7900 H (8939-9258) /uL Lymph # (Auto) 1700 (4575-4594) /uL [place] # (Auto) 1000 H (0-900) /uL Eos # (Auto) 200 (0-450) /uL Baso # (Auto) 100 (0-100) /uL PT 16.1 H (9.4-12.5) SECONDS INR 1.4 H (0.9-1.3) APTT 35 (25.1-36.5) SECONDS Sodium 138 (137-145) mmol/L Potassium 3.8 (3.4-5.1) mmol/L Chloride 99 (98-107) mmol/L Carbon Dioxide 25 (22-32) mmol/L BUN 12 (9-20) mg/dL Creatinine 0.88 (0.66-1.25) mg/dL Estimated GFR > 60 (>60) mL/min BUN/Creatinine Ratio 13.6 (6-22) Glucose 156 H (70-99) mg/dL Lactate 3.0 H 1.3 (0.7-2.1) mmol/L Calcium 9.6 (8.4-10.2) mg/dL Total Bilirubin 1.1 (0.2-1.3) mg/dL AST 29 (17-59) IU/L ALT 21 (<50) IU/L Alkaline Phosphatase 109 (38-126) U/L Total Protein 8.2 (6.3-8.2) g/dL Albumin 4.3 (3.5-5.0) g/dL Globulin 3.9 (1.7-4.1) g/dL Albumin/Globulin Ratio 1.1 (1.0-2.8) Procalcitonin 0.068 (<0.5) ng/mL Imaging Data Chest x-ray: Radiologist's Impression: PROCEDURE: XR CHEST 1V INDICATIONS: sepsis; abd hernia TECHNIQUE: One view of the chest was acquired. COMPARISON: [facility], CT, CT ANGIO CHEST ABDOMEN PELVIS, 07/29/2025, 20:17. [facility], CR, XR CHEST 1V, 07/29/2025, 19:46. [facility], CR, XR CHEST 1V, 10/04/2025, 16:10. [facility], CR, XR CHEST 1V, 10/10/2025, 13:56. FINDINGS: Surgical changes and devices: Sternotomy wires and mediastinal clips are seen. Lungs and pleura: Lungs are clear. No pleural effusions or pneumothorax. Mediastinum: Mediastinal contours appear normal. Heart size is normal. Bones and chest wall: No suspicious bony lesions. Age-appropriate bony degenerative changes are seen. Overlying soft tissues appear unremarkable. IMPRESSION: No focal infiltrates are seen. Postoperative and degenerative changes are seen. Dictated by: Aly Goff M.D. on 10/13/2025 at 16:45 Approved by: Aly Goff M.D. on 10/13/2025 at 16:46 MDM Narrative Medical decision making narrative: 79-year-old male with a past medical history of HTN, IDDM with subsequent BL BKA, HLD, CAD, AFib on Eliquis who presents to the emergency department via EMS for abdominal/hernia pain, concern for bowel obstruction. Differential diagnosis includes but is not limited to inguinal hernia, incarcerated hernia, strangulated hernia, obstruction, UTI, pyelonephritis, pneumonia, etc. On exam the patient is in no acute distress, nontoxic appearing, however he is in significant pain which he reports he has the right side of his low back and also his hernia. He had outpatient scrotal ultrasound and CT abdomen pelvis yesterday due to this hernia, his PCP called him to come to the emergency department due to the findings however he did end up leaving the emergency department due to a long wait time. CT yesterday revealed moderate right inguinal hernia containing mesenteric fat and small bowel without evidence of obstruction or strangulation. Ultrasound revealed a large right inguinal hernia containing fat and bowel. He has a large right-sided inguinal hernia that does not have any overlying skin changes, is soft with palpation, is partially easily reducible. Because of patient's chronic back pain, he is unable to lie completely flat making reduction difficult. Baseline labs were obtained in triage, additional lab work added on by myself including a lactate, this lactate did come back elevated at 3.0 therefore consult placed to general surgery for elevated lactate in the setting of hernia. In addition normal saline ordered, we will not order 30 mL/kg sepsis fluids given patient's history of CHF. Spoke with pharmacy, patient does have allergy to cephalosporins however no known allergy to penicillins therefore we will proceed with Zosyn antibiotics. Labs reveal normal WBC count 10.9, hemoglobin 14.3 hematocrit 41.4. Platelets 312. PT slightly prolonged 16.1, INR 1.4, normal a PTT 35. Sodium normal 138, potassium 3.8, BUN 12 creatinine 0.88. Glucose 156. Elevated lactate 3.0. Normal LFTs. Negative procalcitonin. 1740: Spoke with general surgeon on-call, Dr. Coyle, in regards to patient's history, physical exam, lab work including elevated lactate, CT yesterday revealing inguinal hernia without evidence of obstruction or strangulation. At this time he recommends patient gets some normal saline and a repeat lactate, does not think patient needs to be admitted or go to the operating room at this time, can have a scheduled hernia repair at this time. However wants us to call back after repeat lactate if it is not normalized. 1840: Discussed case with nighttime physician, Dr. Justin, due to shift change. <Lui Justin MD - Last Filed: 10/14/25 01:49> Lab Data Labs: Lab Results 10/13/25 10/13/25 Range/Units 16:24 19:12 WBC 10.9 (4.5-11.0) X10^3/uL RBC 5.09 (4.5-5.9) X10^6/uL Hgb 14.3 (13.5-17.5) g/dL Hct 41.4 (41-53) % MCV 81.5 (80-100) fL MCH 28.1 (26-34) PG MCHC 34.5 (30-36) % RDW 13.6 (11.6-14.8) % Plt Count 312 (150-400) X10^3/uL Neut % (Auto) 72.2 (50-75) % Lymph % (Auto) 15.8 L (25-40) % [place] % (Auto) 9.4 (3-14) % Eos % (Auto) 1.6 L (2-4) % Baso % (Auto) 1.0 (0-2) % Neut # (Auto) 7900 H (3422-3015) /uL Lymph # (Auto) 1700 (1886-3472) /uL [place] # (Auto) 1000 H (0-900) /uL Eos # (Auto) 200 (0-450) /uL Baso # (Auto) 100 (0-100) /uL PT 16.1 H (9.4-12.5) SECONDS INR 1.4 H (0.9-1.3) APTT 35 (25.1-36.5) SECONDS Sodium 138 (137-145) mmol/L Potassium 3.8 (3.4-5.1) mmol/L Chloride 99 (98-107) mmol/L Carbon Dioxide 25 (22-32) mmol/L BUN 12 (9-20) mg/dL Creatinine 0.88 (0.66-1.25) mg/dL Estimated GFR > 60 (>60) mL/min BUN/Creatinine Ratio 13.6 (6-22) Glucose 156 H (70-99) mg/dL Lactate 3.0 H 1.3 (0.7-2.1) mmol/L Calcium 9.6 (8.4-10.2) mg/dL Total Bilirubin 1.1 (0.2-1.3) mg/dL AST 29 (17-59) IU/L ALT 21 (<50) IU/L Alkaline Phosphatase 109 (38-126) U/L Total Protein 8.2 (6.3-8.2) g/dL Albumin 4.3 (3.5-5.0) g/dL Globulin 3.9 (1.7-4.1) g/dL Albumin/Globulin Ratio 1.1 (1.0-2.8) Procalcitonin 0.068 (<0.5) ng/mL Imaging Data CT scan - abdomen/pelvis: Radiologist's Impression: [address] [address] [address] Scan Report Signed Patient: Tulio Yi MR#: [id number] : 1945 Acct:[id number] Age/Sex: 79 / M Date of Service: 10/13/25 Loc: ED Accession Number: [id number] Procedure: CT abdomen pelvis w con Ordering Provider: Caitlin Felder PA-C PROCEDURE: CT ABDOMEN PELVIS W CON INDICATIONS: R inguinal hernia pain; worse since scan yesterday TECHNIQUE: After the administration of intravenous contrast, axial sections acquired from the lung bases to the pubic symphysis. Coronal and sagittal reformats were performed. For radiation dose reduction, the following was used: automated exposure control, adjustment of mA and/or kV according to patient size. COMPARISON: [facility], CT, CT ABDOMEN PELVIS W CON, 11/30/2024, 22:41. [facility], CT, CT ABDOMEN PELVIS W CON, 10/12/2025, 17:14. FINDINGS: Image quality: Diagnostic. Lower Chest: Subpleural reticular scarring in the bilateral lower lobes. Moderate calcifications of the mitral valve annulus. Moderate vascular calcifications of the RCA. ABDOMEN: Liver: No solid mass. Gallbladder: No radiopaque gallstones or wall thickening. Biliary ducts: No biliary dilation. Pancreas: No ductal dilation. Spleen: Size is within normal limits. Adrenal Glands: No adrenal nodules. Kidneys and Ureters: No hydronephrosis. No solid mass. No complex renal cystic lesion which requires follow up. Stomach and Bowel: Interval transit of intraluminal contrast seen on prior exam from yesterday to the large bowel. The small bowel is normal in caliber with normal wall thickness. The large bowel is normal in caliber with normal wall thickness. Peritoneum: No abnormal intraperitoneal fluid. No free air. Ventral Wall: Fat containing periumbilical hernia. Abdominal Nodes: No retroperitoneal or mesenteric adenopathy by size criteria. Vessels: Aorta and inferior vena cava are normal in size. PELVIS: Pelvic Organs: Changes of penile prosthesis.. Bladder: No bladder wall thickening, accounting for underdistention. Pelvic Nodes: No enlarged lymph nodes. Miscellaneous: Right inguinal bowel containing hernia without transition point. Fat containing left inguinal hernia. Bones: Chronic, nonunited, displaced left obturator ring fracture with displacement of the pubic symphysis to the right. Healed right obturator ring fracture. Changes of ORIF of the right femur. IMPRESSION: 1. Similar size and appearance of the bowel containing right inguinal hernia without evidence of infarction or obstruction. Interval passage of oral contrast to the distal large bowel. 2. Chronic osseous findings as above. Dictated by: Santos Flores M.D. on 10/13/2025 at 19:56 Approved by: Santos Flores M.D. on 10/13/2025 at 20:00 [facility] Narrative Medical decision making narrative: 79-year-old male with a past medical history of HTN, IDDM with subsequent BL BKA, HLD, CAD, AFib on Eliquis who presents to the emergency department via EMS for abdominal/hernia pain, concern for bowel obstruction. Differential diagnosis includes but is not limited to inguinal hernia, incarcerated hernia, strangulated hernia, obstruction, UTI, pyelonephritis, pneumonia, etc. On exam the patient is in no acute distress, nontoxic appearing, however he is in significant pain which he reports he has the right side of his low back and also his hernia. He had outpatient scrotal ultrasound and CT abdomen pelvis yesterday due to this hernia, his PCP called him to come to the emergency department due to the findings however he did end up leaving the emergency department due to a long wait time. CT yesterday revealed moderate right inguinal hernia containing mesenteric fat and small bowel without evidence of obstruction or strangulation. Ultrasound revealed a large right inguinal hernia containing fat and bowel. He has a large right-sided inguinal hernia that does not have any overlying skin changes, is soft with palpation, is partially easily reducible. Because of patient's chronic back pain, he is unable to lie completely flat making reduction difficult. Baseline labs were obtained in triage, additional lab work added on by myself including a lactate, this lactate did come back elevated at 3.0 therefore consult placed to general surgery for elevated lactate in the setting of hernia. In addition normal saline ordered, we will not order 30 mL/kg sepsis fluids given patient's history of CHF. Spoke with pharmacy, patient does have allergy to cephalosporins however no known allergy to penicillins therefore we will proceed with Zosyn antibiotics. Labs reveal normal WBC count 10.9, hemoglobin 14.3 hematocrit 41.4. Platelets 312. PT slightly prolonged 16.1, INR 1.4, normal a PTT 35. Sodium normal 138, potassium 3.8, BUN 12 creatinine 0.88. Glucose 156. Elevated lactate 3.0. Normal LFTs. Negative procalcitonin. 174: Spoke with general surgeon on-call, Dr. Coyle, in regards to patient's history, physical exam, lab work including elevated lactate, CT yesterday revealing inguinal hernia without evidence of obstruction or strangulation. At this time he recommends patient gets some normal saline and a repeat lactate, does not think patient needs to be admitted or go to the operating room at this time, can have a scheduled hernia repair at this time. However wants us to call back after repeat lactate if it is not normalized. 184: Discussed case with nighttime physician, Dr. Justin, due to shift change. 10/13/25, 1899, Nhan. Signout from ANDREW Felder. 79-year-old male with right lower inguinal hernia, back pain chronic, outpatient CT scan showed presence of hernia without obstruction yesterday, normal white blood cell count, hemoglobin, liver functions, with initial lactate elevated, negative procalcitonin. Case was discussed with surgery who felt patient did not seem to have surgical abdomen, with reducible right inguinal hernia, doubt obstruction, can see patient in follow up for elective surgery consultation. ANDREW Mabry had further discussion with patient, and via shared medical decision making thigh elected to have repeat imaging tonight. CT abdomen and pelvis study ordered. Keep NPO. Assumed care. CT abdomen and pelvis. IMPRESSION: 1. Similar size and appearance of the bowel containing right inguinal hernia without evidence of infarction or obstruction. Interval passage of oral contrast to the distal large bowel.2. Chronic osseous findings as above. See radiology report. Case discussed again with surgery Dr. Coyle, on my examination patient has right inguinal hernia that is reducible, but persistent. Symptomatic inguinal hernia. Without infarction or obstruction or significant tenderness. Surgery requests patient follow up for elective repair options, recorded his name, can call clinic on Friday after , to schedule consultation leading to possible repair of symptomatic right inguinal hernia. Patient seems satisfied with this response. Discharged home. Discharge Plan Departure Patient Disposition: Home Clinical Impression: Right inguinal hernia, Chronic low back pain Activity Restrictions/Additional Instructions: Right inguinal hernia, large but reducible, persistent, likely will need elective repair if you were felt to be a surgical candidate. CT scan done recently showed no obstructive changes. You had repeat CT scan today, that also did not show any bowel obstructive changes. You had reducible right inguinal hernia on my examination, that popped right back into place after reduction, it is certainly persistent, and likely we will need to be surgically repaired. There does not seem to be any associated bowel obstruction or incarceration at this time. Case discussed with surgery again Dr. Coyle on-call, who stated that he or his partner in clinic can see you in expedited fashion early this week to plan for elective surgical repair of this symptomatic right inguinal hernia. Call his office on Friday was his advice, to request a post emergency department follow up with he/partner your clinic, in anticipation of planning your right inguinal hernia repair. Ongoing back pain, no emergent condition found on imaging CT abdomen and pelvis today to explain your back, including direct back findings on imaging study itself. We discussed pain medication, you have history of opiate abuse in the past, not responding to muscle relaxant Robaxin/methocarbamol. We did discuss Flexeril/cyclobenzaprine, with tends to be more sedating, but might be increased risk for falls, declined for now. Consider using hydrocodone/acetaminophen pain medication, home pack provided for now, you can split the tablets for low doses if you decide to pursue this, to help control your back pain. Consider use of [id number] stool softener such as bisacodyl or Senokot or Colace. Follow up with General surgery in clinic early this next week, call their office Friday morning at 9:[address] Coyle of surgery, who is aware of your situation. Return earlier for any change worsening symptoms or any concerns prior. Prescriptions: No Action metoprolol tartrate 100 mg tablet See Rx Instructions .ROUTE .COMPLEX Qty: 180 3RF Dose Instruction: take 1 tablet by mouth twice a day Rx Instructions: 100 BID apixaban 5 mg tablet 5 mg PO BID levothyroxine 150 mcg tablet 150 mcg PO DAILY Qty: 30 11RF furosemide 20 mg tablet 20 mg PO QDAY Qty: 90 3RF (DME) OneTouch Ultra Test Strip See Rx Instructions .ROUTE .COMPLEX Qty: 100 11RF Dose Instruction: USE TO TEST BLOOD GLUCOSE FOUR TIMES DAILY Rx Instructions: USE TO TEST BLOOD GLUCOSE FOUR TIMES DAILY (DME) Liners, suspension sleeves, and socks See Rx Instructions .Route .MEDSUPPLY Qty: 10 0RF Rx Instructions: As directed losartan 25 mg tablet 25 mg PO DAILY Qty: 90 2RF (DME) insulin syringe-needle U-100 [Comfort EZ Insulin Syringe] 1 mL 30 gauge x 1/2 syringe See Rx Instructions .Route Qty: 100 3RF Rx Instructions: Use 1 syringe with 30x12.7 mm needle to inject insulin four times daily. tamsulosin 0.4 mg capsule 0.4 mg PO QPM Qty: 90 1RF rosuvastatin 20 mg tablet 20 mg PO BEDTIME Qty: 90 1RF Novolin 70/30 U-100 Insulin 100 unit/mL (70-30) suspension 35 unit SUBCUT BID methocarbamol 500 mg Tablet 500 mg PO TID Qty: 90 0RF lidocaine 5 % Adhesive Patch,Medicated 2 patch topical DAILY Qty: 60 0RF Referrals: Sidney Coyle MD [Physician, General Surgery] Sobia Draper DO [Primary Care Provider, Family Practice] Stand Alone Forms: Patient Portal/API
[2025-10-13 17:03] LABS: INR 1.4 (0.9-1.3); Prothrombin Time 16.1 SECONDS (9.4-12.5)
[2025-10-13 17:06] LABS: PTT Partial Thromboplastin Tim 35 SECONDS (25.1-36.5)
[2025-10-13 17:07] LABS: Lactate (Lactic Acid) 3.0 mmol/L (0.7-2.1)
--- NOTE | 2025-10-13 17:09 | DI.RAD.S_ITS ---
PROCEDURE: XR CHEST 1V INDICATIONS: sepsis; abd hernia TECHNIQUE: One view of the chest was acquired. COMPARISON: [facility], CT, CT ANGIO CHEST ABDOMEN PELVIS, 07/29/2025, 20:17. [facility], CR, XR CHEST 1V, 07/29/2025, 19:46. [facility], CR, XR CHEST 1V, 10/04/2025, 16:10. [facility], CR, XR CHEST 1V, 10/10/2025, 13:56. FINDINGS: Surgical changes and devices: Sternotomy wires and mediastinal clips are seen. Lungs and pleura: Lungs are clear. No pleural effusions or pneumothorax. Mediastinum: Mediastinal contours appear normal. Heart size is normal. Bones and chest wall: No suspicious bony lesions. Age-appropriate bony degenerative changes are seen. Overlying soft tissues appear unremarkable. IMPRESSION: No focal infiltrates are seen. Postoperative and degenerative changes are seen. Dictated by: Aly Goff M.D. on 10/13/2025 at 16:45 Approved by: Aly Goff M.D. on 10/13/2025 at 16:46
[2025-10-13 17:42] LABS: Procalcitonin 0.068 ng/mL (<0.5)
[2025-10-13] MEDS: SODIUM CHLORIDE 0.9% 1,000 ML 1000 ML IV (17:43)
[2025-10-13] MEDS: ACETAMINOPHEN IV 1,000 MG/100 ML VIAL 400 MG IV (17:52)
[2025-10-13 18:11] LABS: Reflexed Lactate in 2 Hours Y
[2025-10-13] MEDS: PIPERACILLIN/TAZO 4.5 GM in SODIUM CHLORIDE 0.9% 100 ML IV (18:15)
--- NOTE | 2025-10-13 19:08 | DI.CT.S_ITS ---
PROCEDURE: CT ABDOMEN PELVIS W CON INDICATIONS: R inguinal hernia pain; worse since scan yesterday TECHNIQUE: After the administration of intravenous contrast, axial sections acquired from the lung bases to the pubic symphysis. Coronal and sagittal reformats were performed. For radiation dose reduction, the following was used: automated exposure control, adjustment of mA and/or kV according to patient size. COMPARISON: [facility], CT, CT ABDOMEN PELVIS W CON, 11/30/2024, 22:41. [facility], CT, CT ABDOMEN PELVIS W CON, 10/12/2025, 17:14. FINDINGS: Image quality: Diagnostic. Lower Chest: Subpleural reticular scarring in the bilateral lower lobes. Moderate calcifications of the mitral valve annulus. Moderate vascular calcifications of the RCA. ABDOMEN: Liver: No solid mass. Gallbladder: No radiopaque gallstones or wall thickening. Biliary ducts: No biliary dilation. Pancreas: No ductal dilation. Spleen: Size is within normal limits. Adrenal Glands: No adrenal nodules. Kidneys and Ureters: No hydronephrosis. No solid mass. No complex renal cystic lesion which requires follow up. Stomach and Bowel: Interval transit of intraluminal contrast seen on prior exam from yesterday to the large bowel. The small bowel is normal in caliber with normal wall thickness. The large bowel is normal in caliber with normal wall thickness. Peritoneum: No abnormal intraperitoneal fluid. No free air. Ventral Wall: Fat containing periumbilical hernia. Abdominal Nodes: No retroperitoneal or mesenteric adenopathy by size criteria. Vessels: Aorta and inferior vena cava are normal in size. PELVIS: Pelvic Organs: Changes of penile prosthesis.. Bladder: No bladder wall thickening, accounting for underdistention. Pelvic Nodes: No enlarged lymph nodes. Miscellaneous: Right inguinal bowel containing hernia without transition point. Fat containing left inguinal hernia. Bones: Chronic, nonunited, displaced left obturator ring fracture with displacement of the pubic symphysis to the right. Healed right obturator ring fracture. Changes of ORIF of the right femur. IMPRESSION: 1. Similar size and appearance of the bowel containing right inguinal hernia without evidence of infarction or obstruction. Interval passage of oral contrast to the distal large bowel. 2. Chronic osseous findings as above. Dictated by: Santos Flores M.D. on 10/13/2025 at 19:56 Approved by: Santos Flores M.D. on 10/13/2025 at 20:00
--- NOTE | 2025-10-13 19:10 | EKG_ITS ---
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
[2025-10-13 19:28] LABS: Lactate 2HR (Lactic Acid Rflx) 1.3 mmol/L (0.7-2.1)
== END 2025-10-13 23:21 | disposition home or self-care (01) ==
PROVIDERS: Physician Assistant; Student in an Organized Health Care Education/Training Program; Emergency Provider Emergency Medicine; Family Provider Family Medicine; PCP Family Medicine
DX: K40.90 Unilateral inguinal hernia, without obstruction or gangrene, not specified as recurrent (principal); G89.29 Other chronic pain; M54.50 Low back pain, unspecified; I48.91 Unspecified atrial fibrillation; Z79.01 Long term (current) use of anticoagulants
CPT/HCPCS: 36415; 71045; 74177; 80053; 83605; 84145; 85025; 85610; 85730; 87040; 87186; 93005; 96365; 96367; 99284; J0131; J2543; J7030; J7050

== ENCOUNTER 2025-10-28 16:48 | Emergency (ER) | payer MEDICARE, OTHER, SELFPAY ==
[2025-10-17 09:44] VITALS: BMI 78.0
[2025-10-28 17:12] VITALS: BP 138/70; PULSE 87; RESP 16; TEMP 37; O2SAT 97
[2025-10-28 19:51] VITALS: BP 196/88; PULSE 82; RESP 18; TEMP 37.6; O2SAT 99
[2025-10-28 19:53] VITALS: PULSE 84; O2SAT 100
--- NOTE | 2025-10-28 20:39 | ED.BACK ---
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 His primary care physician called me earlier today asking to provide him with pain relief in the ER and then he will continue with his pain management as an outpatient. Patient says now the pain is radiating down his right buttock. No weakness, incontinence or numbness. Related Data Home Medications ?Medication ?Instructions ?Recorded ?Confirmed apixaban 5 mg tablet 5 mg PO BID 08/22/21 10/17/25 insulin human U-100 NPH-regulr 35 unit SUBCUT BID 10/04/25 10/17/25 70-30 mix 100 unit/mL subcutaneous susp (Novolin 70/30 U-100 Insulin) Previous Rx's ?Medication ?Instructions ?Recorded metoprolol tartrate 100 mg tablet See Rx Instructions .Route 10/16/20 .COMPLEX #180 tabs levothyroxine 150 mcg tablet 150 mcg PO DAILY #30 tabs 02/07/25 blood sugar diagnostic (OneTouch #100 strips 03/07/25 Ultra Test strips) furosemide 20 mg tablet 20 mg PO QDAY #90 tabs 03/07/25 Liners, suspension sleeves, and #10 ea 05/09/25 socks losartan 25 mg tablet 25 mg PO DAILY #90 tabs 07/13/25 insulin syringe-needle U-100 1 mL #100 ea 07/25/25 30 gauge x 1/2 (Comfort EZ Insulin Syringe) tamsulosin 0.4 mg capsule 0.4 mg PO QPM #90 caps 09/14/25 lidocaine 5 % topical patch 2 patch topical DAILY #60 ea 10/06/25 methocarbamol 500 mg tablet 500 mg PO TID #90 tabs 10/06/25 rosuvastatin 20 mg tablet 20 mg PO BEDTIME #90 tabs 10/10/25 methylprednisolone 4 mg tablets in See Rx Instructions PO PER PKG DIR 10/28/25 a dose pack (Medrol (Jaya)) 7 days #21 ea oxycodone 5 mg tablet 5 mg PO Q4-6H PRN pain #60 tabs 10/28/25 pregabalin 150 mg capsule (Lyrica) 150 mg PO BEDTIME #60 caps 10/28/25 Allergies Allergy/AdvReac Type Severity Reaction Status Date / Time doxycycline Allergy Vomiting Verified 10/28/25 17:11 cephalexin AdvReac Severe Blister Verified 10/28/25 17:11 adhesive tape (ADHESIVE TAPE) AdvReac Mild PATIENT Verified 10/28/25 17:11 STATES IT PEELS HIS SKIN OFF lisinopril (LISINOPRIL) AdvReac Mild COUGH Verified 10/28/25 17:11 prochlorperazine AdvReac Unknown Verified 10/28/25 17:11 (PROCHLORPERAZINE) shellfish derived (SHELLFISH AdvReac Unknown Verified 10/28/25 17:11 DERIVED) Cephalosporins AdvReac Blister Verified 10/28/25 17:11 Review of Systems Review of Systems ROS Unobtainable: All systems reviewed & are unremarkable except as noted in HPI and below Musculoskeletal Musculoskeletal: Reports as per HPI Patient History Medical History Opiate dependence Peripheral autonomic neuropathy due to diabetes mellitus Sacral back pain Diabetes, type 1.5, uncontrolled, managed as type 2 Myocardial infarct (10/17/06) Hx of drug abuse Measles (Unknown) GERD (gastroesophageal reflux disease) (Unknown) Hyperlipemia (Unknown) Obstructive sleep apnea (Unknown) Atrial fibrillation (Unknown) Hypertension (Unknown) Hepatitis C (Unknown) Peripheral vascular disease (Unknown) Carotid artery disease (Unknown) Hypothyroidism (Unknown) Erectile dysfunction (Unknown) Coronary artery disease involving coronary bypass graft of [place] heart without angina pectoris (09/11/15) Surgical History S/P bilateral BKA (below knee amputation) History of penile implant History of open reduction and internal fixation (ORIF) procedure (09/2010) Hx of coronary artery bypass surgery (10/2006) Hx of cataract surgery (~2004) S/P bilateral below knee amputation (Unknown) Family History Father Age: 90 Heart disease ETOH abuse Mother Age: 98 Heart disease Alzheimer's dementia without behavioral disturbance, Alzheimer's disease of unspecified onset Social History household members: spouse Smoking Status: Former smoker alcohol intake: current substance use type: does not use Smoking Status: Former smoker tobacco type: cigarettes alcohol intake frequency: holidays/special occasions only Exam Narrative Exam Narrative: General: Alert and conversant. Mild distress. Appears well nourished and well hydrated Lungs: Clear to auscultation with good air movement. No wheezing, rales or rhonchi. No respiratory distress Cardiac: Regular rate and rhythm with no appreciable murmur or gallop Abdomen: Soft, nontender with no distention or masses. Normal bowel sounds. No rebound or guarding Musculoskeletal: Mild right paralumbar and sacroiliac tenderness with no bony tenderness or deformity. Otherwise Exam of the extremities, axial spine and ribcage reveals no deformity, bony tenderness or swelling. Range of motion intact Neuro: Alert and oriented. Cranial nerves, motor, sensory and cerebellar all grossly intact. No focal deficit Skin: Warm and normal color. No rashes Psychological: Normal affect and interaction. No evidence of delusion or psychosis. Normal mood. Initial Vital Signs Initial Vital Signs: Vital Signs Temperature 98.6 F 10/28/25 17:12 Pulse Rate 87 10/28/25 17:12 Respiratory Rate 16 10/28/25 17:12 Blood Pressure 138/70 10/28/25 17:12 Pulse Oximetry 97 10/28/25 17:12 Oxygen Delivery Method Room Air 10/28/25 17:12 Course Orders Ordered: Discontinued Medications Hydromorphone HCl (Hydromorphone 1 Mg/Ml Syringe) 2 mg IM NOW ONE Stop: 10/28/25 20:40 Last Admin: 10/28/25 21:24 Dose: 2 mg Documented By: [place] Vital Signs Vital signs: Vital Signs - 8 hr 10/28/25 17:12 10/28/25 19:51 10/28/25 19:53 Temperature 98.6 F 99.6 F Pulse Rate 87 82 84 Respiratory Rate 16 18 Blood Pressure 138/70 196/88 H Pulse Oximetry 97 99 100 Oxygen Delivery Method Room Air Room Air Oxygen Flow Rate 0 10/28/25 21:46 Temperature Pulse Rate 88 Respiratory Rate 22 Blood Pressure 170/72 H Pulse Oximetry 96 Oxygen Delivery Method Room Air Oxygen Flow Rate MDM - Back Pain/Injury Lab Data Labs: Urine Dip Bedside Urine Glucose Negative Bedside Urine Bilirubin - Negative Bedside Urine Ketone - Negative Urine Specific [place] 1.010 Bedside Urine Occult Blood - Negative Bedside Urine pH 7.0 Bedside Urine Protein - Negative Bedside Urine Urobilinogen - Negative Bedside Urine Nitrite - Negative Bedside Urine Leukocytes - Negative Esterase MDM Narrative Medical decision making narrative: Improved with IM hydromorphone. Patient has exacerbation of chronic back pain with no new injury and I do not believe he needs imaging or other workup in the ER. He will follow up for pain management with primary care. His primary care physician had already called me to ask that we simply give him some pain relief in the ER and then refer him back to primary care. Discharge Plan Departure Patient Disposition: Home Clinical Impression: Acute exacerbation of chronic low back pain Instructions: Managing Chronic Low Back Pain, DI for Back Pain With Sciatica Activity Restrictions/Additional Instructions: Plan: Continue current medications. Follow up with your doctor for further pain management. May need pain clinic. Prescriptions: No Action metoprolol tartrate 100 mg tablet See Rx Instructions .ROUTE .COMPLEX Qty: 180 3RF Dose Instruction: take 1 tablet by mouth twice a day Rx Instructions: 100 BID apixaban 5 mg tablet 5 mg PO BID levothyroxine 150 mcg tablet 150 mcg PO DAILY Qty: 30 11RF furosemide 20 mg tablet 20 mg PO QDAY Qty: 90 3RF (DME) OneTouch Ultra Test Strip See Rx Instructions .ROUTE .COMPLEX Qty: 100 11RF Dose Instruction: USE TO TEST BLOOD GLUCOSE FOUR TIMES DAILY Rx Instructions: USE TO TEST BLOOD GLUCOSE FOUR TIMES DAILY (DME) Liners, suspension sleeves, and socks See Rx Instructions .Route .MEDSUPPLY Qty: 10 0RF Rx Instructions: As directed losartan 25 mg tablet 25 mg PO DAILY Qty: 90 2RF (DME) insulin syringe-needle U-100 [Comfort EZ Insulin Syringe] 1 mL 30 gauge x 1/2 syringe See Rx Instructions .Route Qty: 100 3RF Rx Instructions: Use 1 syringe with 30x12.7 mm needle to inject insulin four times daily. tamsulosin 0.4 mg capsule 0.4 mg PO QPM Qty: 90 1RF rosuvastatin 20 mg tablet 20 mg PO BEDTIME Qty: 90 1RF methylprednisolone [Medrol (Jaya)] 4 mg tablets,dose pack See Rx Instructions PO PER PKG DIR 7 Days Qty: 21 0RF Rx Instructions: PO PER PKG DIR pregabalin [Lyrica] 150 mg capsule 150 mg PO BEDTIME Qty: 60 5RF oxycodone 5 mg tablet 5 mg PO Q4-6H PRN (Reason: pain) Qty: 60 0RF Novolin 70/30 U-100 Insulin 100 unit/mL (70-30) suspension 35 unit SUBCUT BID methocarbamol 500 mg Tablet 500 mg PO TID Qty: 90 0RF lidocaine 5 % Adhesive Patch,Medicated 2 patch topical DAILY Qty: 60 0RF Referrals: Sobia Draper DO [Primary Care Provider, Family Practice] Stand Alone Forms: Patient Portal/API
[2025-10-28 21:46] VITALS: BP 170/72; PULSE 88; RESP 22; O2SAT 96
== END 2025-10-28 21:48 | disposition home or self-care (01) ==
PROVIDERS: Emergency Provider Emergency Medicine; Family Provider Family Medicine; PCP Family Medicine
DX: M54.59 Other low back pain (principal)
CPT/HCPCS: 36415; 81003; 96372; 99283; J1171

== ENCOUNTER 2025-11-11 17:03 | Emergency (ER) | payer MEDICARE, OTHER, SELFPAY ==
[2025-10-17 09:44] VITALS: BMI 78.0
[2025-11-11] VITALS (42 sets, daily range): BP systolic 113–154; BP diastolic 55–82; PULSE 51–99; RESP 11–35; TEMP 36.9; O2SAT 86–100; BMI 34.4
--- NOTE | 2025-11-11 17:24 | DI.CT.S_ITS ---
PROCEDURE: CT ABDOMEN PELVIS W CON INDICATIONS: severe pain in lower right groin TECHNIQUE: After the administration of intravenous contrast, axial sections acquired from the lung bases to the pubic symphysis. Coronal and sagittal reformats were performed. For radiation dose reduction, the following was used: automated exposure control, adjustment of mA and/or kV according to patient size. COMPARISON: [facility], CT, CT ABDOMEN PELVIS W CON, 10/13/2025, 19:22. FINDINGS: Quality: Diagnostic. Lower Chest: Fibrotic changes at the lung bases. No focal consolidation. Coronary calcification. Heart size normal.. Abdomen: Liver: Mild lobulated contour of the liver. 1.1 centimeter indeterminate hypoattenuating lesion in the right lobe in segment 8. Gallbladder and bile ducts: Unremarkable. Pancreas: Diffuse pancreatic atrophy.. Spleen: Unremarkable. Adrenal Glands: Unremarkable. Kidneys and Ureters: Unremarkable. Stomach: Unremarkable. Bowel: No abnormal dilation. No wall thickening. Normal appendix. Peritoneum: No free fluid. No free air. Pelvis: Reproductive: Penile implants.. Bladder: Unremarkable. Other: Lymphatic: No adenopathy. Vasculature: No aortic aneurysm. Abdominal wall: Right inguinal hernia containing small bowel with no evidence of incarceration or obstruction.. Bones: Erosions of the superior inferior endplates at L4-L5. Internal fixation of right femur. Chronic nonunited left superior and inferior pubic rami fractures. Chronic deformity of the left sacroiliac. Severe degenerative changes in the lumbar spine. Sternotomy wires. 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 Right inguinal hernia containing small bowel with no evidence of incarceration or bowel obstruction. Nodular contour of the liver and indeterminate hypoattenuating liver lesion. Further evaluation with MRI recommended. Dictated by: Paulo Moreno M.D. on 11/11/2025 at 19:00 Approved by: Paulo Moreno M.D. on 11/11/2025 at 19:14
--- NOTE | 2025-11-11 17:25 | EKG_ITS ---
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
[2025-11-11] MEDS: LACTATED RINGERS 1,000 ML 1000 ML IV (17:52)
[2025-11-11 17:53] LABS: Add Manual Diff / Slide Review NO; Hematocrit 40.7 % (41-53); Hemoglobin 13.7 g/dL (13.5-17.5); Lymphocytes Absolute Auto 2000 /uL (1100-4500); Mean Corpuscular HGB Conc 33.8 % (30-36); Mean Corpuscular Hemoglobin 27.8 PG (26-34); Mean Corpuscular Volume 82.3 fL (80-100); Platelet Count 190 X10^3/uL (150-400)
[2025-11-11 18:01] LABS: Alanine Aminotransferase 25 IU/L (<50); Albumin 3.9 g/dL (3.5-5.0); Albumin Globulin Ratio 1.3 (1.0-2.8); Alkaline Phosphatase 122 U/L (38-126); Blood Urea Nitrogen 26 mg/dL (9-20); Calcium 9.5 mg/dL (8.4-10.2); Carbon Dioxide 26 mmol/L (22-32); Chloride 102 mmol/L (98-107); Estimated Glomerular Filt Rate > 60 mL/min (>60); Globulin 3.1 g/dL (1.7-4.1); Glucose 243 mg/dL (70-99); HEMOLYSIS < 15 (0-50); Potassium 4.4 mmol/L (3.4-5.1); Sodium 137 mmol/L (137-145); Total Protein 7.0 g/dL (6.3-8.2)
[2025-11-11 18:03] LABS: Lipase < 10 U/L (23-300)
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
--- NOTE | 2025-11-11 18:26 | PC.NURSE ---
1605 Patient O2 in high 70s, patient HOB elevated. Provider Kiarra arrives at bedside to evaluate. O2 ready at bedside.
--- NOTE | 2025-11-11 20:38 | PC.NURSE ---
2000: This RN goes with wet process technician Kevin to MRI. Multiple attempts to get patient onto MRI table and holding still. Patient reports too painful to lay flat and I don't think I can do this, no I can 't do this. Patient also becomes nauseous. HR increases to 130s. Patient oxygen saturation drops to low 80s. Oxygen increased to 4L via NC. Patient oxygen climbs to 96% on 4L once sitting upright and back in wheelchair. Patient wheeled back to room 13. Upon arrival to room he states this RN's face looks blurry. States he has acute onset episodes of blurriness at time. No facial drip and equal powder coat painter strenght bilaterally. Patient report pain 9/10. Provider Kiarra and charge entry February is made aware of multiple attempts for MRI and also for patient vitals and stated change in vision.
[2025-11-11] MEDS: METOPROLOL IR 25 MG TABLET 100 MG PO (20:39)
--- NOTE | 2025-11-11 22:12 | PC.NURSE ---
6641 Patient HR 48-60, Provider miguelito made aware. also made aware patient does not want to wear oximask. No new orders at this time.
--- NOTE | 2025-11-12 00:09 | PC.NURSE ---
Report given/care transferred to [facility] oil transport driver
--- NOTE | 2025-11-12 00:11 | PC.NURSE ---
Pt c/o severe RLQ pain. Dr Plunkett notified, verbal order received for 1mg dilaudid IV.
== END 2025-11-12 00:21 | disposition short-term general hospital (02) ==
PROVIDERS: Family Medicine; Emergency Provider Emergency Medicine; Family Provider Family Medicine; PCP Family Medicine
DX: K40.90 Unilateral inguinal hernia, without obstruction or gangrene, not specified as recurrent (principal); E11.9 Type 2 diabetes mellitus without complications; I48.20 Chronic atrial fibrillation, unspecified; M46.46 Discitis, unspecified, lumbar region; Z79.01 Long term (current) use of anticoagulants; Z86.79 Personal history of other diseases of the circulatory system; I10 Essential (primary) hypertension
CPT/HCPCS: 74177; 80053; 81003; 83690; 85025; 85651; 86140; 93005; 96361; 96374; 96375; 96376; 99284; J1171; J7120; Q9967